=== PATIENT | male | born 1960 | race Two or more races ===

== ENCOUNTER 2020-09-15 15:06 | Outpatient (REF) | payer OTHER, SELFPAY | END 2020-09-15 15:07 | disposition home or self-care (01) | LOC: HO.LAB 15:06 | PROVIDERS: PCP Internal Medicine; Visit Provider Internal Medicine | DX: Z20.828 Contact with and (suspected) exposure to other viral communicable diseases (principal) | CPT/HCPCS: 87635 ==

== ENCOUNTER 2020-09-20 12:37 | Outpatient (REF) | payer OTHER, SELFPAY ==
--- NOTE | 2020-09-20 12:45 | MR_ITS ---
EXAMINATION: MR BRAIN WITHOUT CONTRAST CLINICAL INFORMATION: Skin paresthesias. COMPARISON: Head CT from 04/02/2017. TECHNIQUE: Multiplanar, multisequence imaging of the brain was performed without contrast. FINDINGS: No diffusion abnormalities are identified to suggest an acute or subacute infarct. The ventricles are normal in size. No mass effect or midline shift is seen. Mild chronic white matter microangiopathic changes present. There is a chronic lacunar infarct in the left lateral aspect of the dorsal christie. No extra-axial fluid collections are seen. The cerebellum is normal. The gradient refocused acquisition demonstrates no pathologic magnetic susceptibility artifact to indicate underlying acute or chronic blood products. The craniovertebral junction, marrow signal, and midline structures are normal. The major intracranial flow voids at the level of the wainwright of Mao are preserved. The dural venous sinus flow voids are maintained. The mastoid air cells are well aerated. There is severe mucosal thickening subtotally opacifying the left maxillary antrum. Mild to moderate anterior ethmoid sinus mucosal disease noted, more so on the left side. Aside from mild mucosal thickening along the floor of the right maxillary antrum, the remaining paranasal sinuses are fairly well aerated. MR/MR head/brain wo con IMPRESSION: Mild chronic white matter microangiopathic changes. Chronic lacunar infarct in the left dorsal aspect christie. Severe left maxillary sinus disease of indeterminate etiology. Recommend ENT follow-up evaluation.
== END 2020-09-20 12:38 | disposition home or self-care (01) ==
LOC: HO.MRI 12:37
PROVIDERS: PCP Internal Medicine; Visit Provider Internal Medicine
DX: R20.2 Paresthesia of skin (principal)
CPT/HCPCS: 70551

== ENCOUNTER → 2020-11-22 13:23 | Outpatient (BNVA) | payer OTHER, SELFPAY | PROVIDERS: PCP Internal Medicine; Referring Provider Internal Medicine; Visit Provider Nurse Practitioner | DX: Z13.89 Encounter for screening for other disorder (principal) | CPT/HCPCS: Q3014 ==

== ENCOUNTER 2021-01-18 11:02 | Emergency (ER) | payer OTHER, SELFPAY ==
[2021-01-18 12:30] VITALS: BP 104/77; PULSE 78; RESP 18; TEMP 36.4; O2SAT 98; BMI 43.0
== END 2021-01-18 13:22 | disposition left against medical advice (07) ==
PROVIDERS: Emergency Provider Emergency Medicine
DX: F32.9 Major depressive disorder, single episode, unspecified (principal); R45.851 Suicidal ideations; F41.9 Anxiety disorder, unspecified; F43.10 Post-traumatic stress disorder, unspecified; E11.9 Type 2 diabetes mellitus without complications; F17.210 Nicotine dependence, cigarettes, uncomplicated; F12.90 Cannabis use, unspecified, uncomplicated
CPT/HCPCS: 99281; 99282

== ENCOUNTER 2021-04-22 10:57 | Day surgery (SDC) | payer OTHER, SELFPAY ==
--- NOTE | 2021-04-20 13:47 | P.CONAN_ITS ---
Documented by User: Mellissa Rogers 04/20/21 13:48 HPI - Anesthesia Eval Consult details Narrative: 60yo M for Colonoscopy PMFSH Active Problems Active Problems: All Active Problems (Updated 01/24/21 @ 11:01 by Mellissa Rogers) GERD (gastroesophageal reflux disease) (Acute) Tubular adenoma of colon (Acute) NIDDY (non-insulin dependent diabetes mellitus in young) (Acute) Depression with anxiety (Acute) Glaucoma (Acute) Past Medical History Medical History (Updated 01/24/21 @ 11:01 by Mellissa Rogers) Anxiety Back pain Depression Diabetes GERD (gastroesophageal reflux disease) Gout Hyperhidrosis Neuropathy PTSD (post-traumatic stress disorder) Sarcoidosis Family History Family History (Updated 11/22/20 @ 13:26 by Didi Jerry Maris) Father Myocardial infarction Mother No problems noted. Surgical History Surgical History (Updated 01/19/21 @ 14:23 by Jeanne Novoa) History of bronchoscopy Hx of colonoscopy Social History Social History (Updated 01/19/21 @ 14:26 by Jeanne Novoa) Alcohol intake: current Alcohol intake frequency: does not drink Patient Tobacco Use Status: Current everyday Tobacco user Tobacco use type: Cigarette Cigarettes Per Day: 4 Years Smoked: 40 Second Hand Smoke Exposure: No Use of substances other than those prescribed or required for medical reasons: Yes Substance Use Type: Marijuana and Unknown Are you DNR?: No Advance Directives: No Advance Directives Information Provided: Yes Advance Directives on File: No Meds Allergies Allergy/AdvReac Type Severity Reaction Status Date / Time No Known Allergies Allergy Verified 01/19/21 14:34 Home Medications Medication Instructions Recorded Confirmed Last Taken Type clonazepam 1 tab PO TID PRN 01/19/21 01/19/21 Unknown History duloxetine [Cymbalta] 1 cap PO BID 01/19/21 01/19/21 Unknown History prazosin 3 cap PO BEDTIME 01/19/21 01/19/21 Unknown History Exam Exam Date and Time: April 20, 2021 7107 Assessment and Plan Assessment Anesthesia Assessment: Chart Reviewed Documented by User: Dafne Kannan 04/22/21 12:17 PMFSH Past Medical History Medical History (Updated 01/24/21 @ 11:01 by Mellissa Rogers) Anxiety Back pain Depression Diabetes GERD (gastroesophageal reflux disease) Gout Hyperhidrosis Neuropathy PTSD (post-traumatic stress disorder) Sarcoidosis Family History Family History (Updated 11/22/20 @ 13:26 by Didi Jerry [facility]) Father Myocardial infarction Mother No problems noted. Surgical History Surgical History (Updated 01/19/21 @ 14:23 by Jeanne Novoa) History of bronchoscopy Hx of colonoscopy Social History Social History (Updated 01/19/21 @ 14:26 by Jeanne Novoa) Alcohol intake: current Alcohol intake frequency: does not drink Patient Tobacco Use Status: Current everyday Tobacco user Tobacco use type: Cigarette Cigarettes Per Day: 4 Years Smoked: 40 Second Hand Smoke Exposure: No Use of substances other than those prescribed or required for medical reasons: Yes Substance Use Type: Marijuana and Unknown Are you DNR?: No Advance Directives: No Advance Directives Information Provided: Yes Advance Directives on File: No Meds Allergies Allergy/AdvReac Type Severity Reaction Status Date / Time No Known Allergies Allergy Verified 01/19/21 14:34 Home Medications Medication Instructions Recorded Confirmed Last Taken Type clonazepam 1 tab PO TID PRN 01/19/21 01/19/21 Unknown History duloxetine [Cymbalta] 1 cap PO BID 01/19/21 01/19/21 Unknown History prazosin 3 cap PO BEDTIME 01/19/21 01/19/21 Unknown History Exam Airway Mallampati Class: II TM Dist: >3cm Neck ROM: Full Heart: RRR Lungs: CTA Assessment and Plan Assessment Anesthesia Assessment: Anesthesia Plan Discussed and Chart Reviewed Final Anesthetic Review NPO: Yes ASA Class: II Final Preanesthetic Review: No Changes in Pt Med Stat and Consent Obtained/Reviewed Patient Risk: Intermediate Procedure Risk: Intermediate Anesthetic Plan Anesthetic Plan: MAC: Disposition: Standard PACU
[2021-04-22 12:03] VITALS: BP 140/78; PULSE 72; RESP 18; TEMP 36.7; O2SAT 98; BMI 28.5
[2021-04-22] MEDS: Lactated Ringers 1,000 ML 100 ML IVCONT (12:13)
[2021-04-22 12:15] LABS: Glucose, Whole Blood 143 mg/dL (60-115)
--- NOTE | 2021-04-22 12:31 | P.BOP_ITS ---
Brief Operative Note Date of Service: 04/22/21 Pre-op diagnosis: Colon cancer screening, history of colon polyps Post-op diagnosis: other (Colon polyps, diverticulosis, hemorrhoids) Procedure: COLONOSCOPY TILL CECUM WITH BIOPSIES AND SNARE POLYPECTOMY Consent: Indications for the procedure and potential complications of bleeding, perforation, reaction to medications and missed diagnosis were discussed with the patient and informed consent was obtained. Instrument: Olympus PCF H 190 L variable stiffness pediatric colonoscope Monitoring: Vital signs and clinical assessment, intermittent blood pressure monitoring, continuous EKG monitoring, Pulse oximetry and Carbon Dioxide monitoring were done throughout the procedure. Colon withdrawl time was 27 minutes. Procedure: The patient was placed in the left lateral decubitis position and pre-procedure medications were administered. After a digital rectal examination of the ano-rectum, the video colonoscope was inserted into the rectum and advanced through the colon to the cecum. The colonoscope was slowly withdrawn in a retrograde panoramic fashion and the colon mucosa was carefully examined including a retroflexed view of the rectum. Findings and interventions are described below. Procedure Difficulty: Without difficulty Findings: Terminal Ileum: Not evaluated Cecum: Normal Ascending Colon: Normal Transverse Colon: Normal Descending Colon: Moderate diverticulosis Sigmoid Colon: A 10 to 12 mm sessile polyp removed with a hot snare and moderate diverticulosis Rectum: A few 4-5 mm diminutive polyps in the rectum - 1 was removed with the cold biopsy Ano-rectum: Moderate internal hemorrhoids Colon preparation: Good of the some irrigation Impression and Post Procedure Diagnosis: Colonoscopy Findings: Two polyps removed Moderate diverticulosis seen in the left colon Moderate hemorrhoids on retroflexed exam. Plan: Await pathology results Patient has an appointment on []in the GI Clinic with [NOEL Solares] [Landy Espinoza NP] [Esperanza Abbott, AUTOMOTIVE [employer] ADVISOR-] [Suzy Burnham M.D.]. Repeat Colonoscopy interval based on path results - in 3-5 years if polyps are adenomatous and due to history of adenomatous colon polyps. Above findings were reviewed with the patient and colon polyps and diverticulosis handouts were given in the discharge area. Surgeon: Suzy Burnham MD Anesthesia: MAC (Dr Oliver) Was an Power Cleaner Operator used for this Procedure?: Yes Power Cleaner Operator: Darrel Jorge Estimated blood loss (mL): 0 Pathology: other (A- SIGMOID POLYP B- RECTAL POLYP) Condition: stable Disposition: PACU
--- NOTE | 2021-04-22 12:32 | MHC.SHP ---
Pre-Procedural Eval Section A The patient is an INPATIENT: No The History & Physical has been completed within 30 days and I have reviewed it.: No Section B Chief Complaint: reflux disease Details of Present Illness: Colon cancer screening, history of colon polyps Relevant Family History (Specify if Yes): No Relevant Social History: Tobacco Use Present Medications: see Short Stay Collaborative assessment Medical History: Significant History (GERD, type 2 diabetes mellitus, anxiety and depression, glaucoma) History of Previous Operations: Relevant previous surgery/procedure and date(s) (hx of bronchoscopy, history of colonoscopy) Allergies: Allergies Allergy/AdvReac Type Severity Reaction Status Date / Time No Known Allergies Allergy Verified 01/19/21 14:34 Review of Systems Sugical H&P ROS: Negative: Constitution, Cardiovascular, Respiratory and Gastrointestinal Exam Surgical H&P Exam: Normal: Heart, Normal: Lungs, Normal: Extremities and Normal: Abdomen Plan Diagnosis/Plan: Unchanged I have reviewed the history and physical and performed a pertinent physical examination on my patient. No changes have occurred unless specified.
[2021-04-22 14:18] VITALS: BP 113/59; PULSE 65; RESP 16; TEMP 36.8; O2SAT 100
[2021-04-22 14:33] VITALS: BP 129/75; PULSE 66; RESP 17; TEMP 36.8; O2SAT 100
== END 2021-04-22 14:55 | disposition home or self-care (01) ==
PROVIDERS: Visit Provider Internal Medicine Gastroenterology
PROC: 0DJD8ZZ Inspection of Lower Intestinal Tract, Via Natural or Artificial Opening Endoscopic (ICD-10-PCS; CPT 45378; principal; 2021-04-22 12:50)
DX: Z12.11 Encounter for screening for malignant neoplasm of colon (principal); Z86.010 Personal history of colon polyps; D12.5 Benign neoplasm of sigmoid colon; K62.1 Rectal polyp; K57.30 Diverticulosis of large intestine without perforation or abscess without bleeding; K64.8 Other hemorrhoids; K21.9 Gastro-esophageal reflux disease without esophagitis; D86.9 Sarcoidosis, unspecified; R61 Generalized hyperhidrosis; F17.210 Nicotine dependence, cigarettes, uncomplicated; F12.90 Cannabis use, unspecified, uncomplicated; Z79.899 Other long term (current) drug therapy; E11.9 Type 2 diabetes mellitus without complications; G62.9 Polyneuropathy, unspecified
CPT/HCPCS: 45385; 45380; 82947; 88305

== ENCOUNTER 2021-05-24 14:39 | Emergency (ER) | payer OTHER, SELFPAY ==
--- NOTE | ~2021-05-24 | XR_ITS ---
EXAMINATION: XR CHEST CLINICAL INFORMATION: Asthma COMPARISON: None TECHNIQUE: 2 views of the chest were obtained. FINDINGS: The lungs are well-expanded and clear. The heart size and pulmonary vascularity is normal. No gross bony abnormality seen. XR/XR chest 2V IMPRESSION: Unremarkable chest exam.
--- NOTE | ~2021-05-24 | CT_ITS ---
EXAMINATION: CT CHEST WITHOUT CONTRAST CLINICAL INFORMATION: Shortness of breath. COMPARISON: Multiple priors, most recent chest radiograph dated 05/24/2021 and CTA chest dated 04/26/2015. TECHNIQUE: Multidetector volumetric CT imaging of the chest was done. Axial MIP volume rendering provided. Sagittal and coronal reformatted images were obtained. This CT examination was performed using dose optimization techniques as appropriate, variously including the following: *Automated exposure control. *Adjustment of mA and/or kV according to patient size (this includes techniques or standardized protocols for targeted exams where dose is matched to indication/reason for exam; i.e. extremities or head). *Use of iterative reconstruction technique. 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 LUNGS: Focal ground-glass opacities anteriorly within the right upper lobe. Linear scarring versus atelectasis within the lingula. No large, confluent airspace consolidation. No significant pulmonary nodule or mass. Previously seen scattered nodular densities from the prior CT have resolved. The central airways are patent. MEDIASTINUM: No cardiomegaly. No pericardial effusion. No thoracic aortic dilatation. No significant superior mediastinal or hilar lymphadenopathy. Hypodense left thyroid nodule measuring 1.4 cm. Given the patient's age and the size of the nodule, this is likely not clinically significant and no follow up imaging is recommended. PLEURA: There is no pleural effusion. No pleural mass or thickening. AXILLA: No lymphadenopathy. UPPER ABDOMEN: Unremarkable. OSSEOUS STRUCTURES: Unremarkable. CT/CT chest wo con IMPRESSION: 1. Scattered ground-glass airspace opacities within the right upper lobe which are new when compared to the prior examination and may represent an early infectious or inflammatory process. Previously seen nodular densities have resolved. 2. No lymphadenopathy.
[2021-05-24 15:22] VITALS: BP 134/77; PULSE 86; RESP 18; TEMP 36.9; O2SAT 96; BMI 28.0
[2021-05-24 18:00] VITALS: BP 136/85; PULSE 65; RESP 16; TEMP 36.9; O2SAT 99
--- NOTE | 2021-05-24 18:28 | ECG_ITS ---
Test Reason : DYSPNEA Blood Pressure : / mmHG Vent. Rate : 065 BPM Atrial Rate : 065 BPM P-R Int : 170 ms QRS Dur : 094 ms QT Int : 424 ms P-R-T Axes : 033 017 013 degrees QTc Int : 440 ms Normal sinus rhythm Normal ECG When compared with ECG of 10-JUL-2017 05:57, No significant change was found Referred By: Destinee Gonzalez Electronically Signed By:HYUN MALONEY MD
[2021-05-24] MEDS: Albuterol Sulfate (0.083%) 2.5 MG/3 ML VIAL.NEB 7.5 MG INHALE (18:33)
[2021-05-24 18:35] VITALS: PULSE 65; O2SAT 96
[2021-05-24] MEDS: methylPREDNISolone Sod Succ 125 MG/2 ML VIAL IVPUSH (18:38)
[2021-05-24 18:43] LABS: MANUAL DIFF FLAG NO
[2021-05-24 18:46] LABS: Basophils Percent Auto 0.5 % (0-2); Eosinophils Absolute Auto 0.2 X10*3/uL (0.0-0.4); Eosinophils Percent Auto 2.7 % (0-4); Hematocrit 43.2 % (42-52); Hemoglobin 15.1 g/dl (14.0-18.0); Imm Gran Abs Auto 0.03 X10*3/uL (0.00-0.03); Imm Gran Pct Auto 0.5 % (0.0-0.4); Lymphocytes Absolute Auto 2.3 X10*3/uL (1.2-4.9); Mean Corpuscular Volume 88.7 fL (80-98); Monocytes Absolute Auto 0.3 X10*3/uL (0.1-1.2); Monocytes Percent Auto 5.9 % (2-11); Neutrophils Absolute Auto 2.8 X10*3/uL (2.0-8.3); Neutrophils Percent Auto 49.4 % (45-73); Platelet Count 181 X10*3/uL (160-400); Red Blood Count 4.87 X10*6/uL (4.60-5.80); Red Cell Distribution Width 13.2 % (11.0-16.0); White Blood Count 5.6 X10*3/uL (4.8-10.8)
[2021-05-24 19:04] LABS: Anion Gap 14 (12-20); Blood Urea Nitrogen 13 mg/dL (9-16); Calcium 9.3 mg/dL (8.4-10.2); Carbon Dioxide 25 mmol/L (22-29); Chloride 105 mmol/L (96-108); Creatinine Clr Calc Pharmacy 119.7; Estimated Glomerular Filt Rate > 60; Glucose Random 116 mg/dL (60-115); Potassium 4.2 mmol/L (3.3-5.1); Sodium 140 mmol/L (135-145)
[2021-05-24 19:05] LABS: Magnesium 2.2 mg/dL (1.6-2.6)
[2021-05-24 19:11] LABS: Troponin-I High Sensitivity < 3.5 ng/L (<3.5-35.0)
--- NOTE | 2021-05-24 19:23 | ED_ITS ---
HPI - Asthma General Chief Complaint: Asthma Stated Complaint: Asthma Time Seen by Provider: 05/24/21 18:27 Source: patient Mode of arrival: ambulatory Limitations: no limitations History of Present Illness HPI Narrative: 60-year-old male with past medical history of tubular adenoma, GERD, [id number] diabetes, depression and glaucoma presents with 2 day history of shortness of breath that is unrelieved [id number] medications, chest pain when coughing, fatigue and poor p.o. intake. He does not report any palpitations, abdominal pain, abdominal distention, dysuria, hematuria, measured fevers, weakness, changes in vision, nausea, vomiting, diarrhea, constipation, or edema. MD complaint: asthma attack Onset (ago): day(s) ( To) Severity: moderate Associated symptoms: dry cough and chest pain Related Data Current Asthma Therapy: none Home Medications Medication Instructions Recorded Confirmed clonazepam 1 tab PO TID PRN 01/19/21 01/19/21 duloxetine [Cymbalta] 1 cap PO BID 01/19/21 01/19/21 prazosin 3 cap PO BEDTIME 01/19/21 01/19/21 Previous Rx's Medication Instructions Recorded azithromycin 250 mg PO DAILY 4 Days #4 tab 05/24/21 cefuroxime axetil 500 mg PO Q12H 10 Days #20 tab 05/24/21 Allergies Allergy/AdvReac Type Severity Reaction Status Date / Time No Known Allergies Allergy Verified 04/22/21 12:38 Review of Systems Review of Systems: Constitutional: No Fever, No Chills ENT/Mouth: No Hoarseness, No sore throat, No Rhinorrhea Eyes: No Redness, No Discharge, No Vision Changes Cardiovascular: positive Chest Pain, positive SOB, positive Dyspnea on Exertion, No Edema Respiratory: positive Cough, No Sputum, positive Wheezing, Gastrointestinal: No Nausea, No Vomiting, No Diarrhea, No abdominal Pain Genitourinary: No Dysuria, No Hematuria Musculoskeletal: No joint pain, No Myalgias Skin: No rash Neuro: No Weakness, No Numbness, No Headache Psych: No anxiety, depression Heme/Lymph: No Bruising, No Bleeding Endocrine: No Polyuria, No Polydipsia Yes all other systems are reviewed and are negative PMFSH Past Medical History Attestation statement: The following information was validated with the patient. Source: old records reviewed Medical History Anxiety Back pain Depression Diabetes GERD (gastroesophageal reflux disease) Gout Hyperhidrosis Neuropathy PTSD (post-traumatic stress disorder) Sarcoidosis Surgical History History of bronchoscopy Hx of colonoscopy Family History Family History Father Myocardial infarction Mother No problems noted. Social History Social History Alcohol intake: current Alcohol intake frequency: does not drink Patient Tobacco Use Status: Current everyday Tobacco user Tobacco use type: Cigarette Cigarettes Per Day: 4 Years Smoked: 40 Second Hand Smoke Exposure: No Substance Use Type: Marijuana and Unknown Advance Directives: No Advance Directives Information Provided: No Physical Exam Vital Signs: Vital Signs: Last Vital Signs Temp 97.7 F 05/24/21 20:00 Pulse 71 05/24/21 20:00 Resp 18 05/24/21 20:00 BP 131/62 05/24/21 20:00 Pulse Ox 98 05/24/21 20:00 Body Mass Index 28.0 Appearance: Alert. Oriented X3. No acute distress. Eyes: Pupils equal, round and reactive to light. ENT: Pharynx normal. Neck: Normal inspection. Neck supple. CVS: Normal heart rate and rhythm. Pulses normal. Respiratory: No respiratory distress. wheezing on expiration. Abdomen: Soft and nontender. Skin: Skin warm and dry. Normal skin color. Normal skin turgor. Extremities: No lower extremity edema. Neuro: No motor deficit. No sensory deficit. Course Course Course Narrative: 60-year-old male presents with 2 days of shortness of breath, chest pain when coughing, poor p.o. intake. Plan of care is sore CT scan of chest as chest x-ray is negative however patient does have some adventitious lung sounds. Will rule out ACS. CT scan of chest indicates infiltrates consistent with right-sided pneumonia. Will treat with azithromycin, ceftriaxone while here. Will discharge with 250 of azithromycin for for next 4 days and cefuroxime for the next 10. patient verbalized understanding of and agrees plan of care discharge home. MDM - Asthma MDM Narrative Medical decision making narrative: ACS Differential Diagnosis Differential diagnosis: Likely Acute exacerbation and Pneumonia Medical Records Attestation: I reviewed the patient's medical records. Lab Data Attestation: I reviewed the patient's lab results. Result diagrams: 05/24/21 18:37 05/24/21 18:37 Labs: Lab Results 05/24/21 05/24/21 05/24/21 Range/Units 18:37 18:37 18:37 WBC 5.6 (4.8-10.8) X10*3/uL RBC 4.87 (4.60-5.80) X10*6/uL Hgb 15.1 (14.0-18.0) g/dl Hct 43.2 (42-52) % MCV 88.7 (80-98) fL MCH 31.0 (27.0-33.0) pg MCHC 35.0 (31.0-36.0) g/dl RDW 13.2 (11.0-16.0) % Plt Count 181 (160-400) X10*3/uL MPV 11.0 (9.4-12.4) fL Immature Gran % (Auto) 0.5 H (0.0-0.4) % Neut % (Auto) 49.4 (45-73) % Lymph % (Auto) 41.0 H (20-40) % [place] % (Auto) 5.9 (2-11) % Eos % (Auto) 2.7 (0-4) % Baso % (Auto) 0.5 (0-2) % Lymph # (Auto) 2.3 (1.2-4.9) X10*3/uL [place] # (Auto) 0.3 (0.1-1.2) X10*3/uL Eos # (Auto) 0.2 (0.0-0.4) X10*3/uL Baso # (Auto) 0.0 (0.0-0.2) X10*3/uL Abs Immat Gran (auto) 0.03 (0.00-0.03) X10*3/uL Absolute Neuts (auto) 2.8 (2.0-8.3) X10*3/uL Absolute Nucleated RBC 0.000 (0.0-0.012) X10*3/uL Nucleated RBC % (auto) 0.0 (0.0-0.2) /100WBC Sodium 140 (135-145) mmol/L Potassium 4.2 (3.3-5.1) mmol/L Chloride 105 (96-108) mmol/L Carbon Dioxide 25 (22-29) mmol/L Anion Gap 14 (12-20) BUN 13 (9-16) mg/dL Creatinine 0.79 (0.5-1.4) mg/dL Estim Creat Clear Calc 119.7 Estimated GFR > 60 POC Glucose (60-115) mg/dL Random Glucose 116 H (60-115) mg/dL Calcium 9.3 (8.4-10.2) mg/dL Magnesium (1.6-2.6) mg/dL Troponin I High Sens < 3.5 (<3.5-35.0) ng/L Coronavirus (PCR) (Negative) Influenza Type A (PCR) (Negative) Influenza Type B (PCR) (Negative) RSV RNA Qual (PCR) (Negative) 05/24/21 05/24/21 05/24/21 Range/Units 18:37 18:37 20:20 WBC (4.8-10.8) X10*3/uL RBC (4.60-5.80) X10*6/uL Hgb (14.0-18.0) g/dl Hct (42-52) % MCV (80-98) fL MCH (27.0-33.0) pg MCHC (31.0-36.0) g/dl RDW (11.0-16.0) % Plt Count (160-400) X10*3/uL MPV (9.4-12.4) fL Immature Gran % (Auto) (0.0-0.4) % Neut % (Auto) (45-73) % Lymph % (Auto) (20-40) % [place] % (Auto) (2-11) % Eos % (Auto) (0-4) % Baso % (Auto) (0-2) % Lymph # (Auto) (1.2-4.9) X10*3/uL [place] # (Auto) (0.1-1.2) X10*3/uL Eos # (Auto) (0.0-0.4) X10*3/uL Baso # (Auto) (0.0-0.2) X10*3/uL Abs Immat Gran (auto) (0.00-0.03) X10*3/uL Absolute Neuts (auto) (2.0-8.3) X10*3/uL Absolute Nucleated RBC (0.0-0.012) X10*3/uL Nucleated RBC % (auto) (0.0-0.2) /100WBC Sodium (135-145) mmol/L Potassium (3.3-5.1) mmol/L Chloride (96-108) mmol/L Carbon Dioxide (22-29) mmol/L Anion Gap (12-20) BUN (9-16) mg/dL Creatinine (0.5-1.4) mg/dL Estim Creat Clear Calc Estimated GFR POC Glucose 185 H (60-115) mg/dL Random Glucose (60-115) mg/dL Calcium (8.4-10.2) mg/dL Magnesium 2.2 (1.6-2.6) mg/dL Troponin I High Sens (<3.5-35.0) ng/L Coronavirus (PCR) NEGATIVE (Negative) Influenza Type A (PCR) NEGATIVE (Negative) Influenza Type B (PCR) NEGATIVE (Negative) RSV RNA Qual (PCR) NEGATIVE (Negative) Imaging Data Chest x-ray: Attestation: I personally reviewed and interpreted this imaging study as follows: Radiologist's impression: EXAMINATION: XR CHEST CLINICAL INFORMATION: Asthma COMPARISON: None TECHNIQUE: 2 views of the chest were obtained. FINDINGS: The lungs are well-expanded and clear. The heart size and pulmonary vascularity is normal. No gross bony abnormality seen. XR/XR chest 2V IMPRESSION: Unremarkable chest exam. CT scan - chest: Attestation: I personally reviewed and interpreted this imaging study as follows: Radiologist's impression: EXAMINATION: CT CHEST WITHOUT CONTRAST CLINICAL INFORMATION: Shortness of breath. COMPARISON: Multiple priors, most recent chest radiograph dated 05/24/2021 and CTA chest dated 04/26/2015. TECHNIQUE: Multidetector volumetric CT imaging of the chest was done. Axial MIP volume rendering provided. Sagittal and coronal reformatted images were obtained. This CT examination was performed using dose optimization techniques as appropriate, variously including the following: *Automated exposure control. *Adjustment of mA and/or kV according to patient size (this includes techniques or standardized protocols for targeted exams where dose is matched to indication/reason for exam; i.e. extremities or head). *Use of iterative reconstruction technique. 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 LUNGS: Focal ground-glass opacities anteriorly within the right upper lobe. Linear scarring versus atelectasis within the lingula. No large, confluent airspace consolidation. No significant pulmonary nodule or mass. Previously seen scattered nodular densities from the prior CT have resolved. The central airways are patent. MEDIASTINUM: No cardiomegaly. No pericardial effusion. No thoracic aortic dilatation. No significant superior mediastinal or hilar lymphadenopathy. Hypodense left thyroid nodule measuring 1.4 cm. Given the patient's age and the size of the nodule, this is likely not clinically significant and no follow up imaging is recommended. PLEURA: There is no pleural effusion. No pleural mass or thickening. AXILLA: No lymphadenopathy. UPPER ABDOMEN: Unremarkable. OSSEOUS STRUCTURES: Unremarkable. CT/CT chest wo con IMPRESSION: 1. Scattered ground-glass airspace opacities within the right upper lobe which are new when compared to the prior examination and may represent an early infectious or inflammatory process. Previously seen nodular densities have resolved. 2. No lymphadenopathy. ECG Data Attestation: I personally reviewed and interpreted this ECG as follows: ECG interpretation date: 05/24/21 ECG interpretation time: 19:08 Prior ECG tracings: available for review Interpretation: Vent. rate 65 BPM IL interval 170 ms QRS duration 94 ms QT/QTc 424/440 ms P-R-T axes 33 17 13 Normal sinus rhythm Normal ECG When compared with ECG of 10-JUL-2017 05:57, No significant change was found Discharge Plan Discharge Clinical Impression: Pneumonia Qualifiers: Pneumonia type: due to unspecified organism Laterality: right Lung location: unspecified part of lung Qualified Code(s): J18.9 - Pneumonia, unspecified organism Patient Disposition: Home, Self-Care Instructions: Pneumonia (ED) Additional Instructions: you were evaluated for shortness of breath, cough, and chest pain. CT scan of the chest indicates pneumonia. Please take azithromycin 250 mg for the next 4 days. Please take cefuroxime 500 mg twice a day for the next 10 days. Please start these medications tomorrow. You received Your 1st doses of medication in the emergency department. please follow-up with primary care physician. If symptoms get worse please return to the emergency department immediately. Thank you for choosing this emergency department for evaluation. Please follow-up with primary care physician as needed. Return to the emergency department for any new, concerning, or worsening symptoms. Prescriptions: New azithromycin 250 mg tablet 250 mg PO DAILY 4 Days Qty: 4 RF: 0 cefuroxime axetil 500 mg tablet 500 mg PO Q12H 10 Days Qty: 20 RF: 0 No Action clonazepam 0.5 mg tablet 1 tab PO TID PRN (Reason: anxiety) RF: 0 prazosin 5 mg capsule 3 cap PO BEDTIME RF: 0 duloxetine [Cymbalta] 30 mg capsule,delayed release(DR/EC) 1 cap PO BID RF: 0 Interventions: ED Discharge Assessment Last Done: 05/24/21 22:06 Discharge Date/Time: 05/24/21 22:07
[2021-05-24 19:45] LABS: Influenza A PCR NEGATIVE (Negative); Influenza B PCR NEGATIVE (Negative); Resp Syncy Virus RNA Qual PCR NEGATIVE (Negative); SARS COV2 PCR INHOUSE NEGATIVE (Negative)
[2021-05-24 20:00] VITALS: BP 131/62; PULSE 71; RESP 18; TEMP 36.5; O2SAT 98
[2021-05-24 20:24] LABS: Glucose, Whole Blood 185 mg/dL (60-115)
[2021-05-24] MEDS: cefTRIAXone sodium 1 GM in 0.9 % Sodium Chloride 50 ML IV (21:34)
[2021-05-24] MEDS: Azithromycin 500 MG TABLET PO (21:35)
== END 2021-05-24 22:07 | disposition home or self-care (01) ==
PROVIDERS: Nurse Practitioner Family; Emergency Provider Internal Medicine; PCP Internal Medicine
DX: J18.9 Pneumonia, unspecified organism (principal); E11.9 Type 2 diabetes mellitus without complications; Z20.822 Contact with and (suspected) exposure to COVID-19
CPT/HCPCS: 0241U; 36415; 71046; 71250; 80048; 82947; 83735; 84484; 85025; 93005; 94640; 94644; 96365; 96375; 99284; J0696; J2930

== ENCOUNTER → 2021-05-26 12:58 | Outpatient (BNVA) | payer OTHER, SELFPAY | PROVIDERS: PCP Internal Medicine; Referring Provider Internal Medicine; Visit Provider Nurse Practitioner | DX: D12.6 Benign neoplasm of colon, unspecified (principal) | CPT/HCPCS: 99212 ==

== ENCOUNTER → 2021-06-21 14:31 | Outpatient (BNVA) | payer OTHER, SELFPAY | PROVIDERS: PCP Internal Medicine; Visit Provider Hospitalist | DX: D86.9 Sarcoidosis, unspecified (principal); J18.9 Pneumonia, unspecified organism; J44.9 Chronic obstructive pulmonary disease, unspecified; E11.40 Type 2 diabetes mellitus with diabetic neuropathy, unspecified; E11.65 Type 2 diabetes mellitus with hyperglycemia; F17.210 Nicotine dependence, cigarettes, uncomplicated; Z79.899 Other long term (current) drug therapy | CPT/HCPCS: 99202 ==

== ENCOUNTER 2021-07-08 10:42 | Outpatient (REF) | payer OTHER, SELFPAY ==
--- NOTE | 2021-07-08 16:49 | PFT_ITS ---
Forced vital capacity is normal. FEV1 slightly decreased. [id number] also slightly decreased. MVV normal. Post bronchodilator therapy, there is no significant change. Total lung capacity and residual volume are normal. Diffusion capacity slightly decreased. CONCLUSION: There is a possibility of very mild degree of obstructive airway disorder. No response to bronchodilator therapy. No significant restrictive disorder noted. Clinical correlation is recommended. Black Booth MD MSB/MODL / [id number]
== END 2021-07-08 10:43 | disposition home or self-care (01) ==
LOC: HO.RESP 10:42
PROVIDERS: PCP Internal Medicine; Visit Provider Hospitalist
DX: J44.9 Chronic obstructive pulmonary disease, unspecified (principal); D86.9 Sarcoidosis, unspecified
CPT/HCPCS: 94060; 94727; 94729

== ENCOUNTER 2021-08-19 13:56 | Outpatient (REF) | payer OTHER, SELFPAY ==
[2021-08-19 15:17] LABS: MANUAL DIFF FLAG NO
[2021-08-19 15:21] LABS: Basophils Percent Auto 0.7 % (0-2); Eosinophils Absolute Auto 0.1 X10*3/uL (0.0-0.4); Eosinophils Percent Auto 1.5 % (0-4); Hematocrit 41.8 % (42-52); Hemoglobin 14.7 g/dl (14.0-18.0); Imm Gran Abs Auto 0.02 X10*3/uL (0.00-0.03); Imm Gran Pct Auto 0.4 % (0.0-0.4); Lymphocytes Absolute Auto 1.6 X10*3/uL (1.2-4.9); Lymphocytes Percent Auto 30.5 % (20-40); Mean Corpuscular HGB Conc 35.2 g/dl (31.0-36.0); Mean Corpuscular Hemoglobin 31.3 pg (27.0-33.0); Mean Corpuscular Volume 89.1 fL (80-98); Mean Platelet Volume 11.4 fL (9.4-12.4); Monocytes Absolute Auto 0.3 X10*3/uL (0.1-1.2); Monocytes Percent Auto 5.4 % (2-11); Neutrophils Absolute Auto 3.3 X10*3/uL (2.0-8.3); Neutrophils Percent Auto 61.5 % (45-73); Platelet Count 198 X10*3/uL (160-400); Red Blood Count 4.69 X10*6/uL (4.60-5.80); Red Cell Distribution Width 12.9 % (11.0-16.0); White Blood Count 5.4 X10*3/uL (4.8-10.8)
[2021-08-19 17:32] LABS: Erythrocyte Sedimentation Rate 12 MM/HR (0-15)
[2021-08-22 13:41] LABS: TS Negative Control Passed; TS Panel A 1; TS Panel B 0; TS Positive Control Passed; TSpotTB Negative (Negative)
[2021-08-22 16:12] LABS: Anti Nuclear Antibody Screen NEGATIVE (NEGATIVE)
[2021-08-24 23:16] LABS: Angiotensin Converting Enzyme 27 U/L (9-67)
[2021-08-26 13:55] LABS: Asperg fumigatus Precip Abs NEGATIVE (NEGATIVE); Micropoly faeni Abs NEGATIVE (NEGATIVE); Pigeon serum Abs NEGATIVE (NEGATIVE); Saccharo pora viridis Abs NEGATIVE (NEGATIVE); Thermo candidus Abs NEGATIVE (NEGATIVE); Thermoa vulgaris #1 NEGATIVE (NEGATIVE)
== END 2021-08-19 13:57 | disposition home or self-care (01) ==
LOC: HO.LAB 13:56
PROVIDERS: PCP Internal Medicine; Visit Provider Hospitalist
DX: D86.9 Sarcoidosis, unspecified (principal); J18.9 Pneumonia, unspecified organism; J44.9 Chronic obstructive pulmonary disease, unspecified; R91.8 Other nonspecific abnormal finding of lung field
CPT/HCPCS: 36415; 82164; 82785; 85025; 85652; 86003; 86038; 86039; 86331; 86481; 86606; 86609; 99212

== ENCOUNTER 2021-09-10 10:13 | Emergency (ER) | payer OTHER, SELFPAY ==
--- NOTE | ~2021-09-10 | XR_ITS ---
EXAMINATION: XR CHEST CLINICAL INFORMATION: Pain, fall COMPARISON: Chest CT on 05/24/2021 TECHNIQUE: Frontal view of the chest was obtained. FINDINGS: The cardiac silhouette is normal. There is mild diffuse bronchial wall thickening. There are no areas of consolidation. There are no pleural effusions or pneumothoraces. The bones and soft tissues are unremarkable for the patient's age. XR/XR chest 1V IMPRESSION: Bronchial wall thickening may be infectious and/or inflammatory in etiology.
[2021-09-10 11:18] VITALS: BP 142/78; PULSE 80; RESP 16; TEMP 36.5; O2SAT 98; BMI 29.8
--- NOTE | 2021-09-10 11:51 | ECG_ITS ---
Test Reason : Fall Blood Pressure : / mmHG Vent. Rate : 071 BPM Atrial Rate : 071 BPM P-R Int : 192 ms QRS Dur : 094 ms QT Int : 382 ms P-R-T Axes : 051 015 018 degrees QTc Int : 415 ms Normal sinus rhythm Early repolarization Normal ECG No previous ECGs available Referred By: Linda Dahl Electronically Signed By:SURYA TRIVEDI MD
[2021-09-10 12:02] LABS: Appearance Urine CLEAR; Color Urine YELLOW; Glucose Urine UA >=1000 MG/DL (NEG); Leukocyte Esterase Urine NEG (NEG); Nitrite Urine NEG (NEG); Urine Blood NEG (NEG); Urine Ketones NEG (NEG); Urine Protein NEG (NEG-TRACE)
[2021-09-10 12:15] LABS: COVID-19 Test Negative (Negative); IDNOW Serial# 08D9AD1C
[2021-09-10 12:24] LABS: RBC Urine 0 /HPF (0); WBC Urine 0 /HPF (0-4)
[2021-09-10 12:31] VITALS: BP 136/85; BP 138/85; PULSE 71; PULSE 76
[2021-09-10 12:31] LABS: Eosinophils Absolute Auto 0.2 X10*3/uL (0.0-0.4); Monocytes Absolute Auto 0.4 X10*3/uL (0.1-1.2); Neutrophils Percent Auto 52.7 % (45-73)
[2021-09-10 12:33] LABS: Basophils Percent Auto 0.5 % (0-2); Eosinophils Percent Auto 2.7 % (0-4); Hematocrit 39.6 % (42-52); Hemoglobin 13.8 g/dl (14.0-18.0); Imm Gran Abs Auto 0.02 X10*3/uL (0.00-0.03); Imm Gran Pct Auto 0.3 % (0.0-0.4); Lymphocytes Absolute Auto 2.2 X10*3/uL (1.2-4.9); Lymphocytes Percent Auto 37.5 % (20-40); Mean Corpuscular HGB Conc 34.8 g/dl (31.0-36.0); Mean Corpuscular Hemoglobin 31.2 pg (27.0-33.0); Mean Corpuscular Volume 89.4 fL (80-98); Monocytes Percent Auto 6.3 % (2-11); Neutrophils Absolute Auto 3.1 X10*3/uL (2.0-8.3); Red Blood Count 4.43 X10*6/uL (4.60-5.80); Red Cell Distribution Width 12.4 % (11.0-16.0); White Blood Count 5.9 X10*3/uL (4.8-10.8)
[2021-09-10 12:34] VITALS: BP 147/81; PULSE 81
[2021-09-10 12:34] LABS: MANUAL DIFF FLAG NO
[2021-09-10 12:50] LABS: Mean Platelet Volume 11.9 fL (9.4-12.4)
[2021-09-10 12:51] LABS: Platelet Count 113 X10*3/uL (160-400)
[2021-09-10 12:53] LABS: Alanine Aminotransferase 47 U/L (0-40); Albumin Level 4.1 g/dL (3.5-5.0); Alkaline Phosphatase 120 U/L (39-117); Anion Gap 12 (12-20); Aspartate Amino Transferase 35 U/L (5-37); Bilirubin Direct 0.2 mg/dL (0.0-0.5); Bilirubin Total 0.5 mg/dL (0.0-1.0); Blood Urea Nitrogen 13 mg/dL (9-16); Calcium 9.4 mg/dL (8.4-10.2); Carbon Dioxide 28 mmol/L (22-29); Chloride 104 mmol/L (96-108); Creatinine Clr Calc Pharmacy 94.4; Estimated Glomerular Filt Rate > 60; Glucose Random 233 mg/dL (60-115); Magnesium 1.9 mg/dL (1.6-2.6); Potassium 4.4 mmol/L (3.3-5.1); Sodium 140 mmol/L (135-145); Total Protein 6.7 g/dL (6.5-8.0)
--- NOTE | 2021-09-10 13:34 | ED_ITS ---
HPI - General Adult General Chief complaint: General Medical Stated complaint: BODY PAIN Time Seen by Provider: 09/10/21 11:39 Source: patient Mode of arrival: ambulatory History of Present Illness HPI narrative: 60-year-old male past medical history of asthma/COPD overlap, back pain, depression, diabetes, GERD, gout, neuropathy, PTSD, sarcoidosis, presenting to the ED complaining of diffuse body myalgias/body pain x1 month. Reports pain has caused him to have 3 falls over the past month, denies head trauma or LOC. denies weakness, numbness, tingling, headache, lightheadedness/dizziness, CP/SOB, dysuria/hematuria, decreased p.o. intake. Onset (ago): month(s) Related Data Home Medications Medication Instructions Recorded Confirmed clonazepam 0.5 mg tablet 1 tab PO TID PRN 01/19/21 06/21/21 duloxetine 30 mg capsule,delayed 1 cap PO BID 01/19/21 06/21/21 release (Cymbalta) prazosin 5 mg capsule 3 cap PO BEDTIME 01/19/21 06/21/21 acetaminophen 500 mg tablet 500 mg PO Q6-8H PRN 05/26/21 06/21/21 albuterol sulfate 90 mcg/actuation 2 puff INHALATION Q4-6H PRN 05/26/21 06/21/21 aerosol inhaler fluticasone propionate 50 2 spray INTRANASAL DAILY PRN 05/26/21 06/21/21 mcg/actuation nasal spray,suspension Previous Rx's Medication Instructions Recorded azithromycin 250 mg tablet 250 mg PO DAILY 4 Days #4 tab 05/24/21 cefuroxime axetil 500 mg tablet 500 mg PO Q12H 10 Days #20 tab 05/24/21 albuterol sulfate 2.5 mg INHALATION Q4H PRN 30 Days 06/21/21 #180 ml fluticasone fur. 200 mcg-umeclid 1 inh INHALATION DAILY 30 Days #60 06/21/21 62.5 mcg-vilant 25 mcg ea inhalat.powder (Trelegy Ellipta) nicotine 14 mg/24 hr daily 1 patch TRANSDERMAL DAILY 28 Days 06/21/21 transdermal patch (Nicoderm CQ) #28 ea azithromycin 250 mg tablet 250 mg PO 3XW 28 Days #12 tab 08/19/21 Allergies Allergy/AdvReac Type Severity Reaction Status Date / Time No Known Allergies Allergy Verified 06/21/21 15:15 Review of Systems Review of Systems: Constitutional: No Fever, No Fatigue, No Malaise ENT/Mouth: No Ear Pain, No Nasal Congestion, No Hoarseness, No sore throat, No Swallowing Difficulty Eyes: No Eye Pain, No Swelling, No Redness, No Foreign Body, No Discharge Cardiovascular: No Chest Pain, No SOB, No Dyspnea on Exertion, No Edema, No Palpitations Respiratory: No Cough, No Sputum, No Wheezing, No Dyspnea Gastrointestinal: No Nausea, No Vomiting, No Diarrhea, No Constipation, No Abdominal pain Genitourinary:No Dysuria, No Urinary Frequency, No Hematuria, No Urinary Incontinence, No Urgency, No Flank Pain Musculoskeletal: No joint pain, + Myalgias, No Joint Swelling Skin: No Skin Lesions, No rash Neuro: No Weakness, No Numbness, No Paresthesias, No Loss of Consciousness, No Dizziness, No Headache Yes all other systems are reviewed and are negative [facility] Past Medical History Attestation statement: The following information was validated with the patient. Medical History (Updated 09/10/21 @ 14:20 by NOEL Camejo) Anxiety Asthma-COPD overlap syndrome Back pain Depression Diabetes GERD (gastroesophageal reflux disease) Gout Hyperhidrosis Neuropathy Pneumonitis PTSD (post-traumatic stress disorder) Sarcoidosis Surgical History History of bronchoscopy Hx of colonoscopy Family History Family History Father Myocardial infarction Mother No problems noted. Social History Social History Alcohol intake: current Alcohol intake frequency: does not drink Patient Tobacco Use Status: Current everyday Tobacco user Tobacco use type: Cigarette Cigarettes Per Day: 4 Years Smoked: 40 Second Hand Smoke Exposure: No Substance Use Type: Marijuana and Unknown Advance Directives: No Advance Directives Information Provided: No Physical Exam Vital Signs: Vital Signs: Last Vital Signs Temp 97.7 F 09/10/21 11:18 Pulse 81 09/10/21 12:34 Resp 16 09/10/21 11:18 BP 147/81 H 09/10/21 12:34 Pulse Ox 98 09/10/21 11:18 Body Mass Index 29.8 Const: General: cooperative, healthy appearing and no acute distress Orientation/consciousness: patient oriented x3 Limitations: no limitations HENMT: Head: Yes normal to inspection, Yes normocephalic and Yes atraumatic Ears: hearing grossly normal bilaterally General nose exam: Normal external n ose present Face and sinus: Yes normal facial exam Mouth: Normal oral and palatal mucosa present Throat: Yes posterior oropharynx normal Eyes: General: appearance normal, both eyes and all related structures Pupils: Equal, round and reactive pupils present EOM: EOMs intact bilaterally Neck: Neck: Yes normal visual inspection, Yes no lymphadenopathy and Yes no meningeal signs Resp: Effort & Inspection: normal respiratory effort Auscultation: clear to auscultation bilaterally, no rales, no rhonchi and no wheezes Cardio: Rate: regular rate Heart sounds: S1 normal heart sound present and S2 normal heart sound present GI: Inspection: Yes normal to inspection Palpation (GI): Soft to palpation, nontender, no guarding and not rigid : General: Yes no CVA tenderness Back/Spine/Pelvis: Back: no CVA tenderness Skin: Rashes: no rashes Wounds: no wounds Neuro: General: patient oriented x3, gait normal, tone normal, moves all extremities, no meningeal signs, no focal motor deficits and CN's II-XI intact bilaterally Cranial nerves: Yes Equal, round and reactive pupils present Gait exam (Neuro): Normal gait present Motor exam (neuro): 5/5 motor strength present throughout, Pronator motor function not present and no tremor noted Coordination: [id number] test normal Romberg Test: Negative Extrem: General: Yes normal to inspection, Yes no pedal edema and Yes no calf tenderness Course Course Course Narrative: -1336--no leukocytosis. H&H 13.8/39.6, 1 point dropped from 2 weeks ago. >> will obtain occult stool. Patient denies rectal bleeding/black stool/hematuria. -ALT mildly elevated at 47. CPK mildly elevated at 535 -UA negative, COVID 19 negative XR chest 1V IMPRESSION: Bronchial wall thickening may be infectious and/or inflammatory in etiology. (similar appearance on prior CT chest from April) -1415--occult stool negative. Patient eloped the ED prior to results discussion. Medical Decision Making [facility] Narrative Medical decision making narrative: 60-year-old male past medical history of asthma/COPD overlap, back pain, depression, diabetes, GERD, gout, neuropathy, PTSD, sarcoidosis, presenting to the ED complaining of diffuse body myalgias/body pain x1 month. On exam VS, NAD/well-appearing, physical exam as above, no focal neuro deficits. Lungs CTA, abdomen soft/nontender. Concern for metabolic or infectious etiology vs ?Rhabdomyolysis vs COVID-19/viral illness or dehydration Plan: EKG, labs, UA, CXR, reassess Lab Data Result diagrams: 09/10/21 12:25 09/10/21 12:25 Labs: Lab Results 09/10/21 09/10/21 09/10/21 Range/Units 11:52 11:56 12:25 WBC 5.9 (4.8-10.8) X10*3/uL RBC 4.43 L (4.60-5.80) X10*6/uL Hgb 13.8 L (14.0-18.0) g/dl Hct 39.6 L (42-52) % MCV 89.4 (80-98) fL MCH 31.2 (27.0-33.0) pg MCHC 34.8 (31.0-36.0) g/dl RDW 12.4 (11.0-16.0) % Plt Count 113 L D (160-400) X10*3/uL MPV 11.9 (9.4-12.4) fL Immature Gran % (Auto) 0.3 (0.0-0.4) % Neut % (Auto) 52.7 (45-73) % Lymph % (Auto) 37.5 (20-40) % [place] % (Auto) 6.3 (2-11) % Eos % (Auto) 2.7 (0-4) % Baso % (Auto) 0.5 (0-2) % Lymph # (Auto) 2.2 (1.2-4.9) X10*3/uL [place] # (Auto) 0.4 (0.1-1.2) X10*3/uL Eos # (Auto) 0.2 (0.0-0.4) X10*3/uL Baso # (Auto) 0.0 (0.0-0.2) X10*3/uL Abs Immat Gran (auto) 0.02 (0.00-0.03) X10*3/uL Absolute Neuts (auto) 3.1 (2.0-8.3) X10*3/uL Absolute Nucleated RBC 0.000 (0.0-0.012) X10*3/uL Nucleated RBC % (auto) 0.0 (0.0-0.2) /100WBC Sodium (135-145) mmol/L Potassium (3.3-5.1) mmol/L Chloride (96-108) mmol/L Carbon Dioxide (22-29) mmol/L Anion Gap (12-20) BUN (9-16) mg/dL Creatinine (0.5-1.4) mg/dL Estim Creat Clear Calc Estimated GFR Random Glucose (60-115) mg/dL Calcium (8.4-10.2) mg/dL Magnesium (1.6-2.6) mg/dL Total Bilirubin (0.0-1.0) mg/dL Direct Bilirubin (0.0-0.5) mg/dL AST (5-37) U/L ALT (0-40) U/L Alkaline Phosphatase (39-117) U/L Total Creatine Kinase (38-174) U/L Total Protein (6.5-8.0) g/dL Albumin (3.5-5.0) g/dL Urine Color YELLOW Urine Appearance CLEAR Urine pH 6.0 (5.0-8.0) Ur Specific [place] 1.020 (1.005-1.025) Urine Protein NEG (NEG-TRACE) MG/DL Urine Glucose (UA) >=1000 H (NEG) MG/DL Urine Ketones NEG (NEG) MG/DL Urine Blood NEG (NEG) Urine Nitrite NEG (NEG) Ur Leukocyte Esterase NEG (NEG) Urine RBC 0 (0) /HPF Urine WBC 0 (0-4) /HPF Ur Squamous Epith Cells NONE /LPF Urine Bacteria NONE /LPF Stool Occult Blood (NEGATIVE) COVID-19 (PRECIOUS) Negative (Negative) COVID-19 Clin Com See Note 09/10/21 09/10/21 Range/Units 12:25 14:00 WBC (4.8-10.8) X10*3/uL RBC (4.60-5.80) X10*6/uL Hgb (14.0-18.0) g/dl Hct (42-52) % MCV (80-98) fL MCH (27.0-33.0) pg MCHC (31.0-36.0) g/dl RDW (11.0-16.0) % Plt Count (160-400) X10*3/uL MPV (9.4-12.4) fL Immature Gran % (Auto) (0.0-0.4) % Neut % (Auto) (45-73) % Lymph % (Auto) (20-40) % [place] % (Auto) (2-11) % Eos % (Auto) (0-4) % Baso % (Auto) (0-2) % Lymph # (Auto) (1.2-4.9) X10*3/uL [place] # (Auto) (0.1-1.2) X10*3/uL Eos # (Auto) (0.0-0.4) X10*3/uL Baso # (Auto) (0.0-0.2) X10*3/uL Abs Immat Gran (auto) (0.00-0.03) X10*3/uL Absolute Neuts (auto) (2.0-8.3) X10*3/uL Absolute Nucleated RBC (0.0-0.012) X10*3/uL Nucleated RBC % (auto) (0.0-0.2) /100WBC Sodium 140 (135-145) mmol/L Potassium 4.4 (3.3-5.1) mmol/L Chloride 104 (96-108) mmol/L Carbon Dioxide 28 (22-29) mmol/L Anion Gap 12 (12-20) BUN 13 (9-16) mg/dL Creatinine 1.03 (0.5-1.4) mg/dL Estim Creat Clear Calc 94.4 Estimated GFR > 60 Random Glucose 233 H D (60-115) mg/dL Calcium 9.4 (8.4-10.2) mg/dL Magnesium 1.9 (1.6-2.6) mg/dL Total Bilirubin 0.5 (0.0-1.0) mg/dL Direct Bilirubin 0.2 (0.0-0.5) mg/dL AST 35 (5-37) U/L ALT 47 H (0-40) U/L Alkaline Phosphatase 120 H (39-117) U/L Total Creatine Kinase 535 H (38-174) U/L Total Protein 6.7 (6.5-8.0) g/dL Albumin 4.1 (3.5-5.0) g/dL Urine Color Urine Appearance Urine pH (5.0-8.0) Ur Specific [place] (1.005-1.025) Urine Protein (NEG-TRACE) MG/DL Urine Glucose (UA) (NEG) MG/DL Urine Ketones (NEG) MG/DL Urine Blood (NEG) Urine Nitrite (NEG) Ur Leukocyte Esterase (NEG) Urine RBC (0) /HPF Urine WBC (0-4) /HPF Ur Squamous Epith Cells /LPF Urine Bacteria /LPF Stool Occult Blood NEGATIVE (NEGATIVE) COVID-19 (PRECIOUS) (Negative) COVID-19 Clin Com ECG Data Attestation: I personally reviewed and interpreted this ECG as follows: Prior ECG tracings: available for review Interpretation: EKG normal sinus rhythm. Rate is 71. QTC 415. Nonischemic/no STEMI Discharge Plan Discharge Clinical Impression: Myalgia Patient Disposition: Elopement Prescriptions: No Action clonazepam 0.5 mg tablet 1 tab PO TID PRN (Reason: anxiety) RF: 0 prazosin 5 mg capsule 3 cap PO BEDTIME RF: 0 duloxetine [Cymbalta] 30 mg capsule,delayed release(DR/EC) 1 cap PO BID RF: 0 azithromycin 250 mg tablet 250 mg PO DAILY 4 Days Qty: 4 RF: 0 cefuroxime axetil 500 mg tablet 500 mg PO Q12H 10 Days Qty: 20 RF: 0 Trelegy Ellipta 200-62.5-25 mcg blister with device 1 inh inhalation DAILY 30 Days Qty: 60 RF: 12 albuterol sulfate 2.5 mg /3 mL (0.083 %) solution for nebulization 2.5 mg inhalation Q4H PRN (Reason: shortness of breath or wheezing) 30 Days Qty: 180 RF: 11 nicotine [Nicoderm CQ] 14 mg/24 hr patch 24 hour 1 patch transdermal DAILY 28 Days Qty: 28 RF: 3 fluticasone propionate 50 mcg/actuation spray,suspension 2 spray intranasal DAILY PRN (Reason: congestion) RF: 0 albuterol sulfate 90 mcg/actuation HFA aerosol inhaler 2 puff inhalation Q4-6H PRNRF: 0 acetaminophen 500 mg tablet 500 mg PO Q6-8H PRN (Reason: fever) RF: 0 azithromycin 250 mg tablet 250 mg PO 3XW 28 Days Qty: 12 RF: 6 Discharge Date/Time: 09/10/21 14:18
[2021-09-10 14:04] LABS: OBS Int Ctl Valid YES; OBS1 NEGATIVE (NEGATIVE)
--- NOTE | 2021-09-10 14:08 | PC.NURSE ---
THIS RN ASSISTED PA WITH RECTAL EXAM. PT TOLERATED PROCEDURE WELL.
--- NOTE | 2021-09-10 14:09 | PC.NURSE ---
PT REFUSING IBUPROFEN. PT SAYING I TOOK THAT ALL NIGHT LONG, THAT IS NOT GOING TO HELP.
--- NOTE | 2021-09-10 14:17 | PC.NURSE ---
PT DECLINED MOTRIN, THIS RN WENT BACK TO ROOM TO OFFER PATIENT FLEXERIL AND PT WAS GONE, ID BAND LYING ON THE STRETCHER. PT ELOPED.
== END 2021-09-10 14:18 | disposition left against medical advice (07) ==
PROVIDERS: Physician Assistant; Emergency Provider Emergency Medicine; PCP Internal Medicine
DX: M79.10 Myalgia, unspecified site (principal); E11.40 Type 2 diabetes mellitus with diabetic neuropathy, unspecified; J44.9 Chronic obstructive pulmonary disease, unspecified; Z20.822 Contact with and (suspected) exposure to COVID-19
CPT/HCPCS: 36415; 71045; 80048; 80076; 81001; 81003; 82272; 82550; 83735; 85025; 87635; 93005; 99284

== ENCOUNTER → 2021-11-10 14:47 | Outpatient (BNVA) | payer OTHER, SELFPAY | PROVIDERS: PCP Internal Medicine; Visit Provider Hospitalist | DX: D86.9 Sarcoidosis, unspecified (principal); J18.9 Pneumonia, unspecified organism; J44.9 Chronic obstructive pulmonary disease, unspecified; F17.210 Nicotine dependence, cigarettes, uncomplicated | CPT/HCPCS: 99212 ==

== ENCOUNTER 2021-12-02 14:39 | Emergency (ER) | payer OTHER, SELFPAY ==
--- NOTE | ~2021-12-02 | XR_ITS ---
EXAMINATION: BILATERAL KNEE X-RAY CLINICAL INFORMATION: Fall COMPARISON: Left knee x-ray October 2014 TECHNIQUE: 2 views of each knee FINDINGS: Right: Bone alignment is normal. No fracture or dislocation is seen. There are small osteophytes at the patellofemoral joint. There is no joint effusion. There is an osteophyte at the quadriceps tendon insertion to the patella and patellar tendon insertion to the tibial tuberosity. Left: Bone alignment is normal. No fracture or dislocation is seen. There are small osteophytes at the patellofemoral joint. There is no joint effusion. There is an osteophyte at the quadriceps tendon insertion to the patella and patellar tendon insertion to the tibial tuberosity. There is atherosclerotic disease. XR/XR knee LT 2V IMPRESSION: Degenerative changes. No fracture seen. EXAMINATION: Right hand x-ray CLINICAL INFORMATION: Pain. Fall. COMPARISON: Previous x-ray February 2019 TECHNIQUE: 3 views of the right hand FINDINGS: Bone alignment is normal. No fracture or dislocation is seen. There is mild arthritis at the first MCP joint and the DIP joints. There may be soft tissue swelling over the MCP joints of the fourth finger seen on the lateral view. IMPRESSION: Mild degenerative changes. No fracture seen.
--- NOTE | ~2021-12-02 | XR_ITS ---
EXAMINATION: BILATERAL KNEE X-RAY CLINICAL INFORMATION: Fall COMPARISON: Left knee x-ray October 2014 TECHNIQUE: 2 views of each knee FINDINGS: Right: Bone alignment is normal. No fracture or dislocation is seen. There are small osteophytes at the patellofemoral joint. There is no joint effusion. There is an osteophyte at the quadriceps tendon insertion to the patella and patellar tendon insertion to the tibial tuberosity. Left: Bone alignment is normal. No fracture or dislocation is seen. There are small osteophytes at the patellofemoral joint. There is no joint effusion. There is an osteophyte at the quadriceps tendon insertion to the patella and patellar tendon insertion to the tibial tuberosity. There is atherosclerotic disease. XR/XR hand RT 2V IMPRESSION: Degenerative changes. No fracture seen. EXAMINATION: Right hand x-ray CLINICAL INFORMATION: Pain. Fall. COMPARISON: Previous x-ray February 2019 TECHNIQUE: 3 views of the right hand FINDINGS: Bone alignment is normal. No fracture or dislocation is seen. There is mild arthritis at the first MCP joint and the DIP joints. There may be soft tissue swelling over the MCP joints of the fourth finger seen on the lateral view. IMPRESSION: Mild degenerative changes. No fracture seen.
--- NOTE | ~2021-12-02 | XR_ITS ---
EXAMINATION: BILATERAL KNEE X-RAY CLINICAL INFORMATION: Fall COMPARISON: Left knee x-ray October 2014 TECHNIQUE: 2 views of each knee FINDINGS: Right: Bone alignment is normal. No fracture or dislocation is seen. There are small osteophytes at the patellofemoral joint. There is no joint effusion. There is an osteophyte at the quadriceps tendon insertion to the patella and patellar tendon insertion to the tibial tuberosity. Left: Bone alignment is normal. No fracture or dislocation is seen. There are small osteophytes at the patellofemoral joint. There is no joint effusion. There is an osteophyte at the quadriceps tendon insertion to the patella and patellar tendon insertion to the tibial tuberosity. There is atherosclerotic disease. XR/XR knee RT 2V IMPRESSION: Degenerative changes. No fracture seen. EXAMINATION: Right hand x-ray CLINICAL INFORMATION: Pain. Fall. COMPARISON: Previous x-ray February 2019 TECHNIQUE: 3 views of the right hand FINDINGS: Bone alignment is normal. No fracture or dislocation is seen. There is mild arthritis at the first MCP joint and the DIP joints. There may be soft tissue swelling over the MCP joints of the fourth finger seen on the lateral view. IMPRESSION: Mild degenerative changes. No fracture seen.
[2021-12-02 15:43] VITALS: BP 140/74; PULSE 75; RESP 18; TEMP 37; O2SAT 98; BMI 29.8
--- NOTE | 2021-12-02 16:59 | ED.FALL ---
HPI - Fall General Chief Complaint: Fall Stated Complaint: fell/ R hand/ knee pain Time Seen by Provider: 12/02/21 16:45 History of Present Illness HPI Narrative: Patient complains of right hand and wrist and bilateral knee pain after he tripped and fell slipping on the ice today no head injury no neck injury no back pain no numbness weakness or tingling Related Data Home Medications Medication Instructions Recorded Confirmed clonazepam 0.5 mg tablet 1 tab PO TID PRN 01/19/21 06/21/21 duloxetine 30 mg capsule,delayed 1 cap PO BID 01/19/21 06/21/21 release (Cymbalta) prazosin 5 mg capsule 3 cap PO BEDTIME 01/19/21 06/21/21 acetaminophen 500 mg tablet 500 mg PO Q6-8H PRN 05/26/21 06/21/21 fluticasone propionate 50 2 spray INTRANASAL DAILY PRN 05/26/21 06/21/21 mcg/actuation nasal spray,suspension Previous Rx's Medication Instructions Recorded cefuroxime axetil 500 mg tablet 500 mg PO Q12H 10 Days #20 tab 05/24/21 nicotine 14 mg/24 hr daily 1 patch TRANSDERMAL DAILY 28 Days 06/21/21 transdermal patch (Nicoderm CQ) #28 ea albuterol sulfate 2.5 mg (3 mL) INHALATION Q4H PRN 11/10/21 30 Days #180 ml albuterol sulfate 90 mcg/actuation 2 puff INHALATION Q4-6H PRN 30 11/10/21 aerosol inhaler Days #8.5 g fluticasone fur. 200 mcg-umeclid 1 inh INHALATION DAILY 30 Days #60 11/10/21 62.5 mcg-vilant 25 mcg ea inhalat.powder (Trelegy Ellipta) naproxen 500 mg tablet (Naprosyn) 500 mg PO BID PRN #14 tab 12/02/21 oxycodone 5 mg tablet 5 mg PO Q6H PRN #10 tab 12/02/21 Allergies Allergy/AdvReac Type Severity Reaction Status Date / Time No Known Allergies Allergy Verified 12/02/21 15:43 Review of Systems Review of Systems: Positive right hand and wrist pain as well as bilateral knee pain Negative is no fever no chills no dizziness no fainting no feeling faint no head injury no headache no loss of consciousness no blurred vision no confusion no neck pain no numbness weakness or tingling no chest pain no abdominal pain no hip pain Yes all other systems are reviewed and are negative [facility] Past Medical History Source: nursing notes reviewed Medical History (Updated 12/02/21 @ 17:04 by NOEL Montemayor) Anxiety Asthma-COPD overlap syndrome Back pain Depression Diabetes GERD (gastroesophageal reflux disease) Gout Hyperhidrosis Neuropathy Pneumonitis PTSD (post-traumatic stress disorder) Sarcoidosis Surgical History History of bronchoscopy Hx of colonoscopy Family History Family History Father Myocardial infarction Mother No problems noted. Social History Social History Alcohol intake: current Alcohol intake frequency: does not drink Patient Tobacco Use Status: Current everyday Tobacco user Tobacco use type: Cigarette Cigarettes Per Day: 4 Years Smoked: 40 Second Hand Smoke Exposure: No Substance Use Type: Marijuana and Unknown Advance Directives: No Advance Directives Information Provided: No Physical Exam Vital Signs: Vital Signs: Last Vital Signs Temp 98.6 F 12/02/21 15:43 Pulse 75 12/02/21 15:43 Resp 18 12/02/21 15:43 BP 140/74 H 12/02/21 15:43 Pulse Ox 98 12/02/21 15:43 BMI result Body Mass Index 29.8 General appearance is no acute distress Head is normocephalic atraumatic Neck supple nontender Respiratory no distress Extremities is full range of motion x4 but with some discomfort in the right hand and wrist as well as the bilateral knees The knees each had small contusions, the pads were not ripped, there is full range of motion in the knee the patient extends fully and had tenderness over the anterior knee but no focal bony tenderness and is walking easily bearing weight easily The right hand had a contusion over the thenar eminence and full range of motion in the fingers and full range of motion in the wrist with some mild discomfort, no snuffbox tenderness, skin was intact and neurovascular intact distal Course Course Course Narrative: X-rays of right hand and bilateral knees did not reveal any fracture but did show arthritic changes Patient was able to ambulate slowly but requested crutches which did help him ambulate more easily and he is discharged to follow with orthopedics as needed Discharge Plan Discharge Clinical Impression: Contusion of hand, right, Contusion of knee, Osteoarthritis Patient Disposition: Home, Self-Care Additional Instructions: No sign of any broken bones or dangerous injuries You do have underlying arthritis which makes pain worse If needed follow with orthopedist Return any concerns Prescriptions: New naproxen [Naprosyn] 500 mg tablet 500 mg PO BID PRN (Reason: pain) Qty: 14 RF: 0 oxycodone 5 mg tablet 5 mg PO Q6H PRN (Reason: pain) Qty: 10 RF: 0 No Action clonazepam 0.5 mg tablet 1 tab PO TID PRN (Reason: anxiety) RF: 0 prazosin 5 mg capsule 3 cap PO BEDTIME RF: 0 duloxetine [Cymbalta] 30 mg capsule,delayed release(DR/EC) 1 cap PO BID RF: 0 cefuroxime axetil 500 mg tablet 500 mg PO Q12H 10 Days Qty: 20 RF: 0 nicotine [Nicoderm CQ] 14 mg/24 hr patch 24 hour 1 patch transdermal DAILY 28 Days Qty: 28 RF: 3 fluticasone propionate 50 mcg/actuation spray,suspension 2 spray intranasal DAILY PRN (Reason: congestion) RF: 0 acetaminophen 500 mg tablet 500 mg PO Q6-8H PRN (Reason: fever) RF: 0 albuterol sulfate 90 mcg/actuation HFA aerosol inhaler 2 puff inhalation Q4-6H PRN (Reason: bronchospasm) 30 Days Qty: 8.5 RF: 11 albuterol sulfate 2.5 mg /3 mL (0.083 %) solution for nebulization 2.5 mg inhalation Q4H PRN (Reason: shortness of breath or wheezing) 30 Days Qty: 180 RF: 11 Trelegy Ellipta 200-62.5-25 mcg blister with device 1 inh inhalation DAILY 30 Days Qty: 60 RF: 12 Referrals: Will Calzada MD [Physician] - 1 week (Bilateral knee pain, osteoarthritis) Interventions: ED Discharge Assessment Last Done: 12/02/21 17:16 Discharge Date/Time: 12/02/21 17:23
== END 2021-12-02 17:23 | disposition home or self-care (01) ==
PROVIDERS: Emergency Provider Emergency Medicine; PCP Internal Medicine
DX: S60.221A Contusion of right hand, initial encounter (principal); S80.01XA Contusion of right knee, initial encounter; M17.0 Bilateral primary osteoarthritis of knee; W00.0XXA Fall on same level due to ice and snow, initial encounter; Y93.29 Activity, other involving ice and snow; Y92.9 Unspecified place or not applicable; Y99.9 Unspecified external cause status; F17.210 Nicotine dependence, cigarettes, uncomplicated; Z71.6 Tobacco abuse counseling; Z79.899 Other long term (current) drug therapy
CPT/HCPCS: 73120; 73560; 99283

== ENCOUNTER 2021-12-15 11:40 | Outpatient (REF) | payer OTHER, SELFPAY ==
--- NOTE | ~2021-12-15 | US_ITS ---
EXAMINATION: BILATERAL LOWER EXTREMITY VENOUS ULTRASOUND (REFLUX EXAM) CLINICAL INDICATION: Bilateral leg pain. COMPARISON: None. TECHNIQUE: Color flow triplex imaging and compression Doppler was performed to evaluate both the deep and the superficial systems bilaterally. To evaluate the superficial system, the examination was performed in the upright position. Color-flow Doppler ultrasound and compression ultrasound were utilized. In addition, maneuvers were utilized to demonstrate reflux. FINDINGS: SUPERFICIAL ULTRASOUND WITH DOPPLER OF RIGHT LOWER EXTREMITY GREAT SAPHENOUS VEIN: Saphenofemoral junction: 0.6 cm Max diameter: 0.6 cm Min diameter: 0.3cm Reflux: There is right great saphenous reflux from below the knee to the ankle measuring up to 3.1 seconds. DUPLICATED MEDIAL GREAT SAPHENOUS VEIN: Max Diameter: None imaged Reflux: NA DUPLICATED LATERAL GREAT SAPHENOUS VEIN: Diameter: None imaged Reflux: NA SMALL SAPHENOUS VEIN: Proximal Calf: 0.3 cm Distal Calf: 0.2 cm Reflux: There is greater than 2.9 seconds of reflux at the level of the proximal calf. VEIN OF GIACOMINI: None imaged. PERFORATORS: Location: Distal calf, 0.3 cm Reflux: Greater than 2.7 seconds of reflux. VARICOSITIES: Location: Proximal calf, 0.2 cm. Reflux: Greater than 2.1 seconds of reflux. DEEP VENOUS ULTRASOUND OF THE RIGHT LOWER EXTREMITY: Common Femoral Vein: Compressible, normal respiratory variation and augmented flow. Femoral vein: Compressible, normal color flow and augmentation. Popliteal Vein: Compressible, normal augmentation. Deep Reflux: There is no evidence of reflux in the deep system in either the common femoral vein or the popliteal vein. Butsillo's Cyst: There is no evidence of a Bustillo's cyst. SUPERFICIAL ULTRASOUND WITH DOPPLER OF LEFT LOWER EXTREMITY GREAT SAPHENOUS VEIN: Saphenofemoral junction: 1.2 cm Max diameter: 1.2 cm Min diameter: 0.3 cm Reflux: No evidence of reflux. DUPLICATED MEDIAL GREAT SAPHENOUS VEIN: Max Diameter: None Imaged Reflux: NA DUPLICATED LATERAL GREAT SAPHENOUS VEIN: Diameter: 0.2 cm at the junction. Reflux: None SMALL SAPHENOUS VEIN: Proximal Calf: 0.9 cm Distal Calf: 0.3 cm Reflux: No evidence of reflux. VEIN OF GIACOMINI: None Imaged. PERFORATORS: Location: Midthigh, 0.3 cm and proximal calf, 0.2 cm. Reflux: None VARICOSITIES: Location: None Imaged Reflux: NA DEEP VENOUS ULTRASOUND OF THE LEFT LOWER EXTREMITY: Common Femoral Vein: Compressible, normal respiratory variation and augmented flow. Femoral vein: Compressible, normal color flow and augmentation. Popliteal Vein: Compressible, normal augmentation. Deep Reflux: There is no evidence of reflux in the deep system in either the common femoral vein or the popliteal vein. Bustillo's Cyst: There is no evidence of a Bustillo's cyst. US/US venous duplex LE BI IMPRESSION: 1. Segmental right great saphenous venous insufficiency from below the knee to the ankle. 2. No evidence of left great saphenous venous insufficiency. 3. Small saphenous venous insufficiency beginning at the proximal calf. 4. No evidence of DVT or deep venous insufficiency.
== END 2021-12-15 11:41 | disposition home or self-care (01) ==
LOC: HO.US 11:40
PROVIDERS: Visit Provider Family Medicine
DX: I83.11 Varicose veins of right lower extremity with inflammation (principal); M79.605 Pain in left leg; F17.210 Nicotine dependence, cigarettes, uncomplicated
CPT/HCPCS: 93970; 99202

== ENCOUNTER → 2021-12-22 14:13 | Outpatient (BNVA) | payer OTHER, SELFPAY | PROVIDERS: PCP Internal Medicine; Visit Provider Surgery Vascular Surgery | DX: M79.604 Pain in right leg (principal); F17.210 Nicotine dependence, cigarettes, uncomplicated; Z71.6 Tobacco abuse counseling | CPT/HCPCS: 99212 ==

== ENCOUNTER 2022-02-20 17:17 | Emergency (ER) | payer OTHER, SELFPAY ==
--- NOTE | 2022-02-20 | ECG_ITS ---
Test Reason : MED CLEARANCE Blood Pressure : / mmHG Vent. Rate : 094 BPM Atrial Rate : 094 BPM P-R Int : 182 ms QRS Dur : 086 ms QT Int : 372 ms P-R-T Axes : 064 018 031 degrees QTc Int : 465 ms Normal sinus rhythm Possible Left atrial enlargement Minimal voltage criteria for LVH, may be normal variant ( Sokolow-Oleary ) Borderline ECG When compared with ECG of 10-SEP-2021 12:21, No significant change was found Referred By: Generic ED Physician Electronically Signed By:PABLITO GARCIA
--- NOTE | ~2022-02-20 | XR_ITS ---
EXAMINATION: XR CHEST CLINICAL INFORMATION: Shortness of breath COMPARISON: 09/10/2020 TECHNIQUE: 2 views of the chest were obtained. FINDINGS: No significant abnormality is noted involving the heart, lungs, mediastinum, bony thorax or soft tissues. XR/XR chest 2V IMPRESSION: Unremarkable examination.
[2022-02-20 17:35] VITALS: BP 147/77; PULSE 100; RESP 19; TEMP 36.6; O2SAT 100; BMI 26.6
--- NOTE | 2022-02-20 18:05 | ED.PSYCH ---
HPI - Psych General Chief Complaint: Psychiatric Symptoms <NOEL Lechuga - Last Filed: 02/21/22 00:04> Stated Complaint: ANXIETY WANTTO TALK,NO HI/SI,CRISIS,VOLUNTARY <NOEL Lechuga Last Filed: 02/21/22 00:04> Time Seen by Provider: 02/20/22 17:33 <NOEL Lechuga - Last Filed: 02/21/22 00:04> Source: patient, EMS and old records reviewed <NOEL Lechuga - Last Filed: 02/21/22 00:04> Mode of arrival: EMS <NOEL Lechuga Last Filed: 02/21/22 00:04> Limitations: no limitations <NOEL Lechuga - Last Filed: 02/21/22 00:04> History of Present Illness HPI Narrative: 61-year-old male with history of pulmonary sarcoidosis, asthma-COPD overlap, diabetes not on insulin, GERD, PTSD, anxiety who presents to the ER from home via EMS with severe anxiety, worsening panic attacks and depression leading to suicidal ideation that has developed over the last 3 weeks. This is in the setting of him running out of his psychiatric medications. He states he follows with [facility] and his psychiatrist and therapist appointment for this month was rescheduled for next month. He has been contacting [facility] daily and requesting his mediations to be sent to the pharmacy but it never goes through. He has been off of his Cymbalta, Prazosin and Klonopin. He reports getting a few days worth of his Klonopin sent in last week. He has been having worsening anxiety and nightmares. He states it is so bad he would rather just and plans to run in front of an [address]. <NOEL Lechuga - Last Filed: 02/21/22 00:04> MD complaint: suicidal ideation, feels depressed and anxiety <NOEL Lechuga - Last Filed: 02/21/22 00:04> Onset (ago): week(s) (3) <NOEL Lechuga Last Filed: 02/21/22 00:04> Duration: getting worse <NOEL Lechuga Last Filed: 02/21/22 00:04> History of same: Yes <NOEL Lechuga - Last Filed: 02/21/22 00:04> Relieving factors: medication and therapy <NOEL Lechuga Last Filed: 02/21/22 00:04> Exacerbating factors: none <NOEL Lechuga Last Filed: 02/21/22 00:04> Context: not taking psychiatric medications and significant life stressor <NOEL Lechuga Last Filed: 02/21/22 00:04> Associated psychiatric symptoms: depression, suicidal ideation and racing thoughts <NOEL Lechuga - Last Filed: 02/21/22 00:04> Associated symptoms: headache, shortness of breath and insomnia <NOEL Lechuga Last Filed: 02/21/22 00:04> Treatments prior to arrival: none <NOEL Lechuga Last Filed: 02/21/22 00:04> If self harm: admits thoughts of self harm and has plan <NOEL Lechuga Last Filed: 02/21/22 00:04> Details of plan: run into traffic <NOEL Lechuga Last Filed: 02/21/22 00:04> Related Data Home Medications: Home Medications Medication Instructions Recorded Confirmed acetaminophen 500 mg tablet 500 mg PO Q6-8H PRN 05/26/21 02/20/22 blood sugar diagnostic (FreeStyle #10 ea 12/15/21 Lite Strips) lancets 33 gauge (TRUEplus Lancets) #100 ea 12/15/21 clonazepam 0.5 mg tablet 1 tab PO DAILY PRN 02/20/22 02/20/22 gabapentin 800 mg tablet 1 tab PO TID 02/20/22 02/20/22 prazosin 5 mg capsule 3 cap PO BEDTIME 02/20/22 02/20/22 Previous Rx's Medication Instructions Recorded nicotine 14 mg/24 hr daily 1 patch TRANSDERMAL DAILY 28 Days 06/21/21 transdermal patch (Nicoderm CQ) #28 ea albuterol sulfate 2.5 mg (3 mL) INHALATION Q4H PRN 11/10/21 30 Days #180 ml albuterol sulfate 90 mcg/actuation 2 puff INHALATION Q4-6H PRN 30 11/10/21 aerosol inhaler Days #8.5 g naproxen 500 mg tablet (Naprosyn) 500 mg PO BID PRN #14 tab 12/02/21 <NOEL Lechuga - Last Filed: 02/21/22 00:04> Allergies/Adverse Reactions: Allergies Allergy/AdvReac Type Severity Reaction Status Date / Time No Known Allergies Allergy Verified 12/15/21 11:18 <NOEL Lechuga - Last Filed: 02/21/22 00:04> Review of Systems Review of Systems: Constitutional: No Fever, No Chills ENT/Mouth: No sore throat, No Rhinorrhea, No Swallowing Difficulty Eyes: No Eye Pain, No Swelling, No Redness Cardiovascular: + Chest Pain, + SOB, No Orthopnea, No Edema Respiratory: No Cough, No Sputum, No Wheezing, No dyspnea Gastrointestinal: No Nausea, No Vomiting, No Diarrhea, No abdominal Pain Genitourinary: No Dysuria, No Urinary Frequency, No Hematuria Musculoskeletal: No joint pain, No Myalgias Skin: No Skin Lesions, No rash Neuro: No Weakness, No Numbness, No Dizziness, No Headache Psych: + Anxiety/Panic, + Depression, +SI, No HI, No AH, No VH Heme/Lymph: No Bruising, No Lymphadenopathy Endocrine: No Polyuria, No Polydipsia <NOEL Lechuga - Last Filed: 02/21/22 00:04> [facility] Past Medical History Medical History: Medical History Anxiety Asthma-COPD overlap syndrome Back pain Depression Diabetes GERD (gastroesophageal reflux disease) Gout Hyperhidrosis Neuropathy Pneumonitis PTSD (post-traumatic stress disorder) Sarcoidosis <NOEL Lechuga - Last Filed: 02/21/22 00:04> Surgical History: Surgical History History of bronchoscopy Hx of colonoscopy <NOEL Lechuga - Last Filed: 02/21/22 00:04> Family History Family History: Family History Father Myocardial infarction Mother No problems noted. <NOEL Lechuga - Last Filed: 02/21/22 00:04> Social History Social History: Social History Alcohol intake: current Alcohol intake frequency: does not drink Patient Tobacco Use Status: Current everyday Tobacco user Tobacco use type: Cigarette Cigarettes Per Day: 4 Years Smoked: 40 Second Hand Smoke Exposure: No Substance Use Type: Marijuana and Unknown Advance Directives: No Advance Directives Information Provided: No <NOEL Lechuga - Last Filed: 02/21/22 00:04> Physical Exam Vital Signs: Vital Signs: Last Vital Signs Temp 97.9 F 02/21/22 18:55 Pulse 92 02/21/22 18:55 Resp 16 02/21/22 18:55 BP 130/61 02/21/22 18:55 Pulse Ox 97 02/21/22 18:55 BMI result Body Mass Index 26.6 <NOEL Lechuga - Last Filed: 02/21/22 00:04> Vital Signs: Last Vital Signs Temp 97.9 F 02/21/22 18:55 Pulse 92 02/21/22 18:55 Resp 16 02/21/22 18:55 BP 130/61 02/21/22 18:55 Pulse Ox 97 02/21/22 18:55 BMI result Body Mass Index 26.6 <NOEL Grimaldo - Last Filed: 02/21/22 11:13> Vital Signs: Last Vital Signs Temp 97.9 F 02/21/22 18:55 Pulse 92 02/21/22 18:55 Resp 16 02/21/22 18:55 BP 130/61 02/21/22 18:55 Pulse Ox 97 02/21/22 18:55 BMI result Body Mass Index 26.6 <NOEL Magallon - Last Filed: 02/21/22 19:32> Appearance: Alert. Oriented X3. No acute distress. Eyes: Pupils equal, round and reactive to light. ENT: Pharynx normal. Neck: Normal inspection. Neck supple. CVS: Normal heart rate and rhythm. Pulses normal. Respiratory: Mild respiratory distress with RR 22 due to anxiety. Breath sounds normal. Abdomen: Soft and nontender. +BS x4 Skin: Skin warm and dry. Normal skin color. Normal skin turgor. No rashes. Extremities: No lower extremity edema. Neuro/psych: Oriented X 3. CN II-XII intact. No motor deficit. No sensory deficit. Anxious, hyperverbal. Poor insight and judgment. Suicidal. <NOEL Lechuga - Last Filed: 02/21/22 00:04> Course Course Course Narrative: 61-year-old male with a history of PTSD, anxiety, sarcoidosis, GERD, diabetes, varicose veins who presents to the ER with worsening anxiety, depression, suicidality in the setting of not being prescribed his regular psychiatric medications. He also reports SOB and was reporting chest pain to EMS (now resolved), likely in the setting of severe anxiety. Will check CXR, EKG and medical workup. Will need to be seen by crisis team once medically cleared. <NOEL Lechuga - Last Filed: 02/21/22 00:04> 61-year-old male with a history of PTSD, anxiety, sarcoidosis, GERD, diabetes, varicose veins who presents to the ER with worsening anxiety, depression, suicidality in the setting of not being prescribed his regular psychiatric medications. He also reports SOB and was reporting chest pain to EMS (now resolved), likely in the setting of severe anxiety. Will check CXR, EKG and medical workup. Will need to be seen by crisis team once medically cleared. 193 on 02/21/2022 - Spoke to CARE team who recommends the patient be discharged. <NOEL Magallon - Last Filed: 02/21/22 19:32> Reevaluation(s) Reevaluation #1: Lab workup unremarkable. CXR clear. EKG without ischemic changes. Patient extremely anxious, impulsive, intmittently agitated with racing thoughts. Required IM ativan earlier and given PO haldol with good effect. At this time patient is medically cleared. Physician observation started at 12:00am. Patient placed in physician observation because patient is awaiting [facility] evaluation for the possible need of inpatient psych admission. At the time observation was started patient's vital signs were stable. Patient is alert and oriented. Neuro exam is non-focal. CV: RRR and lungs are clear. Will continue to monitor. <NOEL Lechuga - Last Filed: 02/21/22 00:04> Reevaluation #2: Physician observation continued. Patient awaiting [facility] evaluation. Patient not in any distress. Neuro exam intact bird. Patient watching television in bed. <NOEL Grimaldo - Last Filed: 02/21/22 11:13> MDM - Psych Lab Data Result diagrams: : 02/20/22 19:07 02/20/22 19:07 <NOEL Lechuga - Last Filed: 02/21/22 00:04> Labs: Lab Results 02/20/22 02/20/22 02/20/22 Range/Units 17:54 18:00 19:07 WBC 6.8 (4.8-10.8) X10*3/uL RBC 5.27 (4.60-5.80) X10*6/uL Hgb 16.2 (14.0-18.0) g/dl Hct 47.7 (42.0-52.0) % MCV 90.5 (80.0-98.0) fL MCH 30.7 (27.0-33.0) pg MCHC 34.0 (31.0-36.0) g/dl RDW 12.7 (11.0-16.0) % Plt Count 248 (160-400) X10*3/uL MPV 12.1 (9.4-12.4) fL Immature Gran % (Auto) 0.4 (0.0-0.4) % Neut % (Auto) 45.3 (45-73) % Lymph % (Auto) 46.2 H (20-40) % [place] % (Auto) 5.4 (2-11) % Eos % (Auto) 1.8 (0-4) % Baso % (Auto) 0.9 (0-2) % Lymph # (Auto) 3.2 (1.2-4.9) X10*3/uL [place] # (Auto) 0.4 (0.1-1.2) X10*3/uL Eos # (Auto) 0.1 (0.0-0.4) X10*3/uL Baso # (Auto) 0.1 (0.0-0.2) X10*3/uL Abs Immat Gran (auto) 0.03 (0.00-0.03) X10*3/uL Absolute Neuts (auto) 3.1 (2.0-8.3) x10*3/uL Absolute Nucleated RBC 0.000 (0.0-0.012) X10*3/uL Nucleated RBC % (auto) 0.0 (0.0-0.2) /100WBC Sodium (135-145) mmol/L Potassium (3.3-5.1) mmol/L Chloride (96-108) mmol/L Carbon Dioxide (22-29) mmol/L Anion Gap (12-20) BUN (9-16) mg/dL Creatinine (0.5-1.4) mg/dL Estim Creat Clear Calc Estimated GFR POC Glucose (60-115) mg/dL Random Glucose (60-115) mg/dL Calcium (8.4-10.2) mg/dL Magnesium (1.6-2.6) mg/dL Total Bilirubin (0.0-1.0) mg/dL Direct Bilirubin (0.0-0.5) mg/dL AST (5-37) U/L ALT (0-40) U/L Alkaline Phosphatase (39-117) U/L Total Protein (6.5-8.0) g/dL Albumin (3.5-5.0) g/dL Urine Opiates Screen Not Detected (Not Detect) Urine Fentanyl Screen Not Detected (Not Detect) Ur Barbiturates Screen Not Detected (Not Detect) Ur Phencyclidine Scrn Not Detected (Not Detect) Ur Amphetamines Screen Not Detected (Not Detect) U Benzodiazepines Scrn Not Detected (Not Detect) Urine Cocaine Screen Not Detected (Not Detect) U Marijuana (THC) Screen POSITIVE H (Not Detect) Ethyl Alcohol mg/dL COVID-19 (PRECIOUS) Negative (Negative) COVID-19 Clin Com See Note 02/20/22 02/20/22 02/20/22 Range/Units 19:07 19:07 19:44 WBC (4.8-10.8) X10*3/uL RBC (4.60-5.80) X10*6/uL Hgb (14.0-18.0) g/dl Hct (42.0-52.0) % MCV (80.0-98.0) fL MCH (27.0-33.0) pg MCHC (31.0-36.0) g/dl RDW (11.0-16.0) % Plt Count (160-400) X10*3/uL MPV (9.4-12.4) fL Immature Gran % (Auto) (0.0-0.4) % Neut % (Auto) (45-73) % Lymph % (Auto) (20-40) % [place] % (Auto) (2-11) % Eos % (Auto) (0-4) % Baso % (Auto) (0-2) % Lymph # (Auto) (1.2-4.9) X10*3/uL [place] # (Auto) (0.1-1.2) X10*3/uL Eos # (Auto) (0.0-0.4) X10*3/uL Baso # (Auto) (0.0-0.2) X10*3/uL Abs Immat Gran (auto) (0.00-0.03) X10*3/uL Absolute Neuts (auto) (2.0-8.3) x10*3/uL Absolute Nucleated RBC (0.0-0.012) X10*3/uL Nucleated RBC % (auto) (0.0-0.2) /100WBC Sodium 144 (135-145) mmol/L Potassium 4.0 (3.3-5.1) mmol/L Chloride 105 (96-108) mmol/L Carbon Dioxide 21 L (22-29) mmol/L Anion Gap 22 H (12-20) BUN 11 (9-16) mg/dL Creatinine 1.23 (0.5-1.4) mg/dL Estim Creat Clear Calc 63.8 Estimated GFR > 60 POC Glucose 178 H (60-115) mg/dL Random Glucose 222 H (60-115) mg/dL Calcium 10.0 D (8.4-10.2) mg/dL Magnesium 2.2 (1.6-2.6) mg/dL Total Bilirubin 0.9 (0.0-1.0) mg/dL Direct Bilirubin 0.3 (0.0-0.5) mg/dL AST 17 D (5-37) U/L ALT 23 (0-40) U/L Alkaline Phosphatase 116 (39-117) U/L Total Protein 8.2 H D (6.5-8.0) g/dL Albumin 4.8 (3.5-5.0) g/dL Urine Opiates Screen (Not Detect) Urine Fentanyl Screen (Not Detect) Ur Barbiturates Screen (Not Detect) Ur Phencyclidine Scrn (Not Detect) Ur Amphetamines Screen (Not Detect) U Benzodiazepines Scrn (Not Detect) Urine Cocaine Screen (Not Detect) U Marijuana (THC) Screen (Not Detect) Ethyl Alcohol < 10 mg/dL COVID-19 (PRECIOUS) (Negative) COVID-19 Clin Com <NOEL Lechuga - Last Filed: 02/21/22 00:04> Lab Results 02/20/22 02/20/22 02/20/22 Range/Units 17:54 18:00 19:07 WBC 6.8 (4.8-10.8) X10*3/uL RBC 5.27 (4.60-5.80) X10*6/uL Hgb 16.2 (14.0-18.0) g/dl Hct 47.7 (42.0-52.0) % MCV 90.5 (80.0-98.0) fL MCH 30.7 (27.0-33.0) pg MCHC 34.0 (31.0-36.0) g/dl RDW 12.7 (11.0-16.0) % Plt Count 248 (160-400) X10*3/uL MPV 12.1 (9.4-12.4) fL Immature Gran % (Auto) 0.4 (0.0-0.4) % Neut % (Auto) 45.3 (45-73) % Lymph % (Auto) 46.2 H (20-40) % [place] % (Auto) 5.4 (2-11) % Eos % (Auto) 1.8 (0-4) % Baso % (Auto) 0.9 (0-2) % Lymph # (Auto) 3.2 (1.2-4.9) X10*3/uL [place] # (Auto) 0.4 (0.1-1.2) X10*3/uL Eos # (Auto) 0.1 (0.0-0.4) X10*3/uL Baso # (Auto) 0.1 (0.0-0.2) X10*3/uL Abs Immat Gran (auto) 0.03 (0.00-0.03) X10*3/uL Absolute Neuts (auto) 3.1 (2.0-8.3) x10*3/uL Absolute Nucleated RBC 0.000 (0.0-0.012) X10*3/uL Nucleated RBC % (auto) 0.0 (0.0-0.2) /100WBC Sodium (135-145) mmol/L Potassium (3.3-5.1) mmol/L Chloride (96-108) mmol/L Carbon Dioxide (22-29) mmol/L Anion Gap (12-20) BUN (9-16) mg/dL Creatinine (0.5-1.4) mg/dL Estim Creat Clear Calc Estimated GFR POC Glucose (60-115) mg/dL Random Glucose (60-115) mg/dL Calcium (8.4-10.2) mg/dL Magnesium (1.6-2.6) mg/dL Total Bilirubin (0.0-1.0) mg/dL Direct Bilirubin (0.0-0.5) mg/dL AST (5-37) U/L ALT (0-40) U/L Alkaline Phosphatase (39-117) U/L Total Protein (6.5-8.0) g/dL Albumin (3.5-5.0) g/dL Urine Opiates Screen Not Detected (Not Detect) Urine Fentanyl Screen Not Detected (Not Detect) Ur Barbiturates Screen Not Detected (Not Detect) Ur Phencyclidine Scrn Not Detected (Not Detect) Ur Amphetamines Screen Not Detected (Not Detect) U Benzodiazepines Scrn Not Detected (Not Detect) Urine Cocaine Screen Not Detected (Not Detect) U Marijuana (THC) Screen POSITIVE H (Not Detect) Ethyl Alcohol mg/dL COVID-19 (PRECIOUS) Negative (Negative) COVID-19 Clin Com See Note 02/20/22 02/20/22 02/20/22 Range/Units 19:07 19:07 19:44 WBC (4.8-10.8) X10*3/uL RBC (4.60-5.80) X10*6/uL Hgb (14.0-18.0) g/dl Hct (42.0-52.0) % MCV (80.0-98.0) fL MCH (27.0-33.0) pg MCHC (31.0-36.0) g/dl RDW (11.0-16.0) % Plt Count (160-400) X10*3/uL MPV (9.4-12.4) fL Immature Gran % (Auto) (0.0-0.4) % Neut % (Auto) (45-73) % Lymph % (Auto) (20-40) % [place] % (Auto) (2-11) % Eos % (Auto) (0-4) % Baso % (Auto) (0-2) % Lymph # (Auto) (1.2-4.9) X10*3/uL [place] # (Auto) (0.1-1.2) X10*3/uL Eos # (Auto) (0.0-0.4) X10*3/uL Baso # (Auto) (0.0-0.2) X10*3/uL Abs Immat Gran (auto) (0.00-0.03) X10*3/uL Absolute Neuts (auto) (2.0-8.3) x10*3/uL Absolute Nucleated RBC (0.0-0.012) X10*3/uL Nucleated RBC % (auto) (0.0-0.2) /100WBC Sodium 144 (135-145) mmol/L Potassium 4.0 (3.3-5.1) mmol/L Chloride 105 (96-108) mmol/L Carbon Dioxide 21 L (22-29) mmol/L Anion Gap 22 H (12-20) BUN 11 (9-16) mg/dL Creatinine 1.23 (0.5-1.4) mg/dL Estim Creat Clear Calc 63.8 Estimated GFR > 60 POC Glucose 178 H (60-115) mg/dL Random Glucose 222 H (60-115) mg/dL Calcium 10.0 D (8.4-10.2) mg/dL Magnesium 2.2 (1.6-2.6) mg/dL Total Bilirubin 0.9 (0.0-1.0) mg/dL Direct Bilirubin 0.3 (0.0-0.5) mg/dL AST 17 D (5-37) U/L ALT 23 (0-40) U/L Alkaline Phosphatase 116 (39-117) U/L Total Protein 8.2 H D (6.5-8.0) g/dL Albumin 4.8 (3.5-5.0) g/dL Urine Opiates Screen (Not Detect) Urine Fentanyl Screen (Not Detect) Ur Barbiturates Screen (Not Detect) Ur Phencyclidine Scrn (Not Detect) Ur Amphetamines Screen (Not Detect) U Benzodiazepines Scrn (Not Detect) Urine Cocaine Screen (Not Detect) U Marijuana (THC) Screen (Not Detect) Ethyl Alcohol < 10 mg/dL COVID-19 (PRECIOUS) (Negative) COVID-19 Clin Com <NOEL Grimaldo - Last Filed: 02/21/22 11:13> Lab Results 02/20/22 02/20/22 02/20/22 Range/Units 17:54 18:00 19:07 WBC 6.8 (4.8-10.8) X10*3/uL RBC 5.27 (4.60-5.80) X10*6/uL Hgb 16.2 (14.0-18.0) g/dl Hct 47.7 (42.0-52.0) % MCV 90.5 (80.0-98.0) fL MCH 30.7 (27.0-33.0) pg MCHC 34.0 (31.0-36.0) g/dl RDW 12.7 (11.0-16.0) % Plt Count 248 (160-400) X10*3/uL MPV 12.1 (9.4-12.4) fL Immature Gran % (Auto) 0.4 (0.0-0.4) % Neut % (Auto) 45.3 (45-73) % Lymph % (Auto) 46.2 H (20-40) % [place] % (Auto) 5.4 (2-11) % Eos % (Auto) 1.8 (0-4) % Baso % (Auto) 0.9 (0-2) % Lymph # (Auto) 3.2 (1.2-4.9) X10*3/uL [place] # (Auto) 0.4 (0.1-1.2) X10*3/uL Eos # (Auto) 0.1 (0.0-0.4) X10*3/uL Baso # (Auto) 0.1 (0.0-0.2) X10*3/uL Abs Immat Gran (auto) 0.03 (0.00-0.03) X10*3/uL Absolute Neuts (auto) 3.1 (2.0-8.3) x10*3/uL Absolute Nucleated RBC 0.000 (0.0-0.012) X10*3/uL Nucleated RBC % (auto) 0.0 (0.0-0.2) /100WBC Sodium (135-145) mmol/L Potassium (3.3-5.1) mmol/L Chloride (96-108) mmol/L Carbon Dioxide (22-29) mmol/L Anion Gap (12-20) BUN (9-16) mg/dL Creatinine (0.5-1.4) mg/dL Estim Creat Clear Calc Estimated GFR POC Glucose (60-115) mg/dL Random Glucose (60-115) mg/dL Calcium (8.4-10.2) mg/dL Magnesium (1.6-2.6) mg/dL Total Bilirubin (0.0-1.0) mg/dL Direct Bilirubin (0.0-0.5) mg/dL AST (5-37) U/L ALT (0-40) U/L Alkaline Phosphatase (39-117) U/L Total Protein (6.5-8.0) g/dL Albumin (3.5-5.0) g/dL Urine Opiates Screen Not Detected (Not Detect) Urine Fentanyl Screen Not Detected (Not Detect) Ur Barbiturates Screen Not Detected (Not Detect) Ur Phencyclidine Scrn Not Detected (Not Detect) Ur Amphetamines Screen Not Detected (Not Detect) U Benzodiazepines Scrn Not Detected (Not Detect) Urine Cocaine Screen Not Detected (Not Detect) U Marijuana (THC) Screen POSITIVE H (Not Detect) Ethyl Alcohol mg/dL COVID-19 (PRECIOUS) Negative (Negative) COVID-19 Clin Com See Note 02/20/22 02/20/22 02/20/22 Range/Units 19:07 19:07 19:44 WBC (4.8-10.8) X10*3/uL RBC (4.60-5.80) X10*6/uL Hgb (14.0-18.0) g/dl Hct (42.0-52.0) % MCV (80.0-98.0) fL MCH (27.0-33.0) pg MCHC (31.0-36.0) g/dl RDW (11.0-16.0) % Plt Count (160-400) X10*3/uL MPV (9.4-12.4) fL Immature Gran % (Auto) (0.0-0.4) % Neut % (Auto) (45-73) % Lymph % (Auto) (20-40) % [place] % (Auto) (2-11) % Eos % (Auto) (0-4) % Baso % (Auto) (0-2) % Lymph # (Auto) (1.2-4.9) X10*3/uL [place] # (Auto) (0.1-1.2) X10*3/uL Eos # (Auto) (0.0-0.4) X10*3/uL Baso # (Auto) (0.0-0.2) X10*3/uL Abs Immat Gran (auto) (0.00-0.03) X10*3/uL Absolute Neuts (auto) (2.0-8.3) x10*3/uL Absolute Nucleated RBC (0.0-0.012) X10*3/uL Nucleated RBC % (auto) (0.0-0.2) /100WBC Sodium 144 (135-145) mmol/L Potassium 4.0 (3.3-5.1) mmol/L Chloride 105 (96-108) mmol/L Carbon Dioxide 21 L (22-29) mmol/L Anion Gap 22 H (12-20) BUN 11 (9-16) mg/dL Creatinine 1.23 (0.5-1.4) mg/dL Estim Creat Clear Calc 63.8 Estimated GFR > 60 POC Glucose 178 H (60-115) mg/dL Random Glucose 222 H (60-115) mg/dL Calcium 10.0 D (8.4-10.2) mg/dL Magnesium 2.2 (1.6-2.6) mg/dL Total Bilirubin 0.9 (0.0-1.0) mg/dL Direct Bilirubin 0.3 (0.0-0.5) mg/dL AST 17 D (5-37) U/L ALT 23 (0-40) U/L Alkaline Phosphatase 116 (39-117) U/L Total Protein 8.2 H D (6.5-8.0) g/dL Albumin 4.8 (3.5-5.0) g/dL Urine Opiates Screen (Not Detect) Urine Fentanyl Screen (Not Detect) Ur Barbiturates Screen (Not Detect) Ur Phencyclidine Scrn (Not Detect) Ur Amphetamines Screen (Not Detect) U Benzodiazepines Scrn (Not Detect) Urine Cocaine Screen (Not Detect) U Marijuana (THC) Screen (Not Detect) Ethyl Alcohol < 10 mg/dL COVID-19 (PRECIOUS) (Negative) COVID-19 Clin Com <NOEL Magallon - Last Filed: 02/21/22 19:32> Critical Care Time Critical Care Time Critical Care Time: No <NOLE Lechuga - Last Filed: 02/21/22 00:04> Discharge Plan Discharge Clinical Impression: Depression <NOEL Lechuga - Last Filed: 02/21/22 00:04> Patient Disposition: Home, Self-Care <NOEL Lechuga - Last Filed: 02/21/22 00:04> Instructions: Depression (ED), Depression (DC) <NOEL Lechuga - Last Filed: 02/21/22 00:04> Additional Instructions: Follow up with your primary care provider. Return to the emergency department immediately if your symptoms worsen or if you develop any dizziness, shortness of breath, difficulty breathing, chest pain, blurry vision, loss of vision, nausea, vomiting, abdominal pain, fever, chills, back pain, or any other complaints. <NOEL Lechuga - Last Filed: 02/21/22 00:04> Prescriptions: No Action naproxen [Naprosyn] 500 mg tablet 500 mg PO BID PRN (Reason: pain) Qty: 14 0RF clonazepam 0.5 mg tablet 1 tab PO DAILY PRN (Reason: Anxiety) 0RF prazosin 5 mg capsule 3 cap PO BEDTIME 0RF gabapentin 800 mg tablet 1 tab PO TID 0RF nicotine [Nicoderm CQ] 14 mg/24 hr patch 24 hour 1 patch transdermal DAILY 28 Days Qty: 28 3RF acetaminophen 500 mg tablet 500 mg PO Q6-8H PRN (Reason: fever) 0RF albuterol sulfate 90 mcg/actuation HFA aerosol inhaler 2 puff inhalation Q4-6H PRN (Reason: bronchospasm) 30 Days Qty: 8.5 11RF albuterol sulfate 2.5 mg /3 mL (0.083 %) solution for nebulization 2.5 mg inhalation Q4H PRN (Reason: shortness of breath or wheezing) 30 Days Qty: 180 11RF (DME) lancets [TRUEplus Lancets] 33 gauge misc See Rx Instructions ea Not Applicable BID Qty: 100 0RF Rx Instructions: As directed (DME) FreeStyle Lite Strips Strip See Rx Instructions ea Not Applicable BID Qty: 10 0RF Rx Instructions: As directed <NOEL Lechuga - Last Filed: 02/21/22 00:04> Referrals: Cy Ruano MD [Primary Care Provider] - 2 days <NOEL Lechuga - Last Filed: 02/21/22 00:04> Print Language: Romanian <NOEL Lechuga - Last Filed: 02/21/22 00:04>
[2022-02-20 18:18] LABS: COVID-19 Test Negative (Negative); IDNOW Serial# 55D5AD1C
[2022-02-20 18:31] LABS: Amphetamine Screen Urine Not Detected (Not Detect); Barbiturates, Urine Not Detected (Not Detect); Benzodiazepines Screen Urine Not Detected (Not Detect); Cannabinoid Screen Urine POSITIVE (Not Detect); Cocaine Screen Urine Not Detected (Not Detect); Fentanyl, urine Not Detected (Not Detect); Opiate Screen Urine Not Detected (Not Detect); Phencyclidine Screen Urine Not Detected (Not Detect)
--- NOTE | 2022-02-20 18:40 | PC.NURSE ---
Patient asked for breathing treatment, this nurse told patient that he had to wait for brew house supervisor to put order in. Pt stated fuck this I'm going home! This nurse informed patient that at this time he was not able to leave. Patient took a running leap at back door and slammed body into door and walked out ambulance bay. This nurse followed patient out yelling for security. Security brought patient back in brew house supervisor at bedside gave verbal order for lorazepam. Patient them had emesis x 3 on floor. Charge nurse, security and brew house supervisor as well as this nurse at bedside. This nurse then educated patient that medication was to help him with his anxiety and that it would allow him to calm down. Patient agreed to take medication willingly. this nurse administered medication in left deltoid without restraint. Patient is resting at this time. no s/s of pain or discomfort.
[2022-02-20] MEDS: LORazepam 2 MG/ML VIAL IM (18:56)
[2022-02-20 19:16] LABS: MANUAL DIFF FLAG NO
[2022-02-20 19:17] LABS: Basophils Absolute Auto 0.1 X10*3/uL (0.0-0.2); Basophils Percent Auto 0.9 % (0-2); Eosinophils Absolute Auto 0.1 X10*3/uL (0.0-0.4); Eosinophils Percent Auto 1.8 % (0-4); Hematocrit 47.7 % (42.0-52.0); Hemoglobin 16.2 g/dl (14.0-18.0); Imm Gran Abs Auto 0.03 X10*3/uL (0.00-0.03); Imm Gran Pct Auto 0.4 % (0.0-0.4); Lymphocytes Absolute Auto 3.2 X10*3/uL (1.2-4.9); Lymphocytes Percent Auto 46.2 % (20-40); Mean Corpuscular Hemoglobin 30.7 pg (27.0-33.0); Mean Corpuscular Volume 90.5 fL (80.0-98.0); Mean Platelet Volume 12.1 fL (9.4-12.4); Monocytes Absolute Auto 0.4 X10*3/uL (0.1-1.2); Monocytes Percent Auto 5.4 % (2-11); Neutrophils Absolute Auto 3.1 x10*3/uL (2.0-8.3); Neutrophils Percent Auto 45.3 % (45-73); Platelet Count 248 X10*3/uL (160-400); Red Blood Count 5.27 X10*6/uL (4.60-5.80); Red Cell Distribution Width 12.7 % (11.0-16.0); White Blood Count 6.8 X10*3/uL (4.8-10.8)
[2022-02-20] MEDS: Albuterol Sulfate (0.083%) 2.5 MG/3 ML VIAL.NEB INHALE (19:25)
[2022-02-20 19:33] LABS: Ethanol < 10 mg/dL
[2022-02-20 19:46] LABS: Alanine Aminotransferase 23 U/L (0-40); Albumin Level 4.8 g/dL (3.5-5.0); Alkaline Phosphatase 116 U/L (39-117); Anion Gap 22 (12-20); Aspartate Amino Transferase 17 U/L (5-37); Bilirubin Direct 0.3 mg/dL (0.0-0.5); Bilirubin Total 0.9 mg/dL (0.0-1.0); Blood Urea Nitrogen 11 mg/dL (9-16); Carbon Dioxide 21 mmol/L (22-29); Chloride 105 mmol/L (96-108); Creatinine Clr Calc Pharmacy 63.8; Estimated Glomerular Filt Rate > 60; Glucose Random 222 mg/dL (60-115); Magnesium 2.2 mg/dL (1.6-2.6); Sodium 144 mmol/L (135-145); Total Protein 8.2 g/dL (6.5-8.0)
[2022-02-20 19:48] LABS: Glucose, Whole Blood 178 mg/dL (60-115)
[2022-02-20] MEDS: Gabapentin 400 MG CAPSULE 800 MG PO (20:40)
[2022-02-20] MEDS: Prazosin HCL 5 MG CAPSULE 15 MG PO (20:40)
[2022-02-20] MEDS: clonazePAM 0.5 MG TABLET PO (20:41)
[2022-02-20] MEDS: Acetaminophen 325 MG TABLET 650 MG PO (20:41)
[2022-02-20 20:46] VITALS: BP 131/89; PULSE 102; RESP 20; TEMP 36.6; O2SAT 97
[2022-02-20] MEDS: Albuterol Sulfate 90 MCG 8 GM INHALER 2 PUFF INHALE (22:23)
[2022-02-20] MEDS: HaloperidoL 5 MG TABLET PO (23:00)
--- NOTE | 2022-02-21 06:04 | PC.NURSE ---
Patient slept through the night, no distress observed/reported, patient exhibited behavior dys-regulation in the evening, PRN Klonopin 0.5 mg administered with night time medication, refused his Cymbalta reporting it doesn't help, medication discontinued per patient's request, patient reported having racing thought/provider notified/Haldol 5 mg PO administered with positive effect, N referral completed/confirmed, pending evaluation, will continue to monitor.
[2022-02-21 06:17] VITALS: BP 107/52; PULSE 67; RESP 16; TEMP 36.8; O2SAT 96
--- NOTE | 2022-02-21 07:30 | PC.NURSE ---
patient appears to remain asleep at present respirations are even and unlabored patient appears in no distress
[2022-02-21] MEDS: Gabapentin 400 MG CAPSULE 800 MG PO ×2 (08:15→14:47)
[2022-02-21] MEDS: Albuterol Sulfate 90 MCG 8 GM INHALER 2 PUFF INHALE ×2 (11:13→16:14)
--- NOTE | 2022-02-21 11:14 | PC.NURSE ---
client had requested something for pain earlier, spoke of his arm which client had restraint last night during elopement attempt. declined tylenol so t/w pursued order for ibuprofen. client then declined ibuprofen it doesnt work for me
[2022-02-21] MEDS: clonazePAM 0.5 MG TABLET PO (14:51)
[2022-02-21 18:55] VITALS: BP 130/61; PULSE 92; RESP 16; TEMP 36.6; O2SAT 97
--- NOTE | 2022-02-21 19:29 | MHC.CARE ---
CARE Team met with pt and recommends that pt be discharged to follow up with his outpatient providers. This plan is discussed and agreed upon by ED provider, NOEL Magallon, and CARE proposal coordinator, GLADIS Zimmerman.
== END 2022-02-21 19:39 | disposition home or self-care (01) ==
PROVIDERS: Physician Assistant; Emergency Provider Emergency Medicine; PCP Internal Medicine
DX: F32.A Depression, unspecified (principal); R45.851 Suicidal ideations; F41.9 Anxiety disorder, unspecified; F43.10 Post-traumatic stress disorder, unspecified; R06.02 Shortness of breath; Z20.822 Contact with and (suspected) exposure to COVID-19; E11.9 Type 2 diabetes mellitus without complications; F17.200 Nicotine dependence, unspecified, uncomplicated; F12.90 Cannabis use, unspecified, uncomplicated; Z79.899 Other long term (current) drug therapy
CPT/HCPCS: 36415; 71046; 80048; 80076; 80307; 82077; 82947; 83735; 85025; 87635; 93005; 96372; 99285; J2060

== ENCOUNTER → 2022-05-09 14:29 | Outpatient (BNVA) | payer OTHER, SELFPAY | PROVIDERS: PCP Internal Medicine; Visit Provider Hospitalist | DX: J18.9 Pneumonia, unspecified organism (principal); J44.9 Chronic obstructive pulmonary disease, unspecified; D86.9 Sarcoidosis, unspecified; F17.210 Nicotine dependence, cigarettes, uncomplicated | CPT/HCPCS: 99212 ==

== ENCOUNTER 2022-05-23 12:42 | Outpatient (REF) | payer OTHER, SELFPAY ==
--- NOTE | ~2022-05-23 | CT_ITS ---
EXAMINATION: CT CHEST WITHOUT CONTRAST CLINICAL INFORMATION: Pneumonia COMPARISON: Previous chest CT April 2021 and chest x-ray January 2022 TECHNIQUE: Multidetector volumetric CT imaging of the chest was done. Axial MIP volume rendering provided. Sagittal and coronal reformatted images were obtained. This CT examination was performed using dose optimization techniques as appropriate, variously including the following: *Automated exposure control *Adjustment of mA and/or kV according to patient size (this includes techniques or standardized protocols for targeted exams where dose is matched to indication/reason for exam; i.e. extremities or head) *Use of iterative reconstruction technique DLP: 199 mGy-cm FINDINGS: LUNGS: There is a small area of clustered peribronchial nodules and bronchial wall thickening in the right upper lobe laterally axial image 177. There is a small area of focal bronchiectasis and bronchial wall thickening in the posterior segment of the right upper lobe for example axial image 208 series 7. There is a small area of clustered peribronchial nodules or tree-in-bud appearance in the peripheral lateral left upper lobe axial image 144 series 7 and 333 series 7. These areas appear free of April 2021 exam. There is mild atelectasis focal bronchiectasis in the inferior segment of the lingula for example axial image 429 series 7 that is stable from 2020 exam. No new infiltrates are seen. Very mild paraseptal emphysema. No endobronchial or endotracheal lesion. MEDIASTINUM: Coronary artery calcification. Normal heart size. No pericardial effusion. No caliber thoracic aorta. Small mediastinal lymph nodes. No enlarged hilar or mediastinal lymph nodes. Stable small left thyroid nodule. PLEURA: There is no pleural effusion. No pleural mass or thickening. AXILLA: Small bilateral axillary lymph nodes. No enlarged lymph nodes or chest wall mass. UPPER ABDOMEN: Unremarkable. OSSEOUS STRUCTURES: Degenerative changes of the spine. CT/CT chest wo con IMPRESSION: Improved airways disease from April 2021 exam. Chronic atelectasis and bronchiectasis in the inferior segment of the lingula that is unchanged. Fleischner guidelines were followed.
== END 2022-05-23 12:43 | disposition home or self-care (01) ==
LOC: HO.CT 12:42
PROVIDERS: PCP Internal Medicine; Visit Provider Hospitalist
DX: J18.9 Pneumonia, unspecified organism (principal)
CPT/HCPCS: 71250

== ENCOUNTER 2022-06-15 02:32 | Inpatient (IN) | payer OTHER, SELFPAY ==
--- NOTE | ~2022-06-15 | XR_ITS ---
EXAMINATION: XR CHEST CLINICAL INFORMATION: Cough, shortness of breath COMPARISON: 05/23/2022 TECHNIQUE: Frontal view of the chest was obtained. FINDINGS: The lungs are well-aerated without focal consolidation. Trace atelectasis is suspected at the left base. No evidence of pneumothorax, pulmonary edema, or pleural effusions. The cardiomediastinal silhouette is unremarkable. No acute osseous findings. XR/XR chest 1V IMPRESSION: No acute cardiopulmonary findings.
[2022-06-15 02:34] VITALS: BP 146/75; PULSE 98; RESP 18; TEMP 36.4; O2SAT 96; BMI 29.6
--- NOTE | 2022-06-15 02:45 | ECG_ITS ---
Test Reason : DYSPNEA Blood Pressure : / mmHG Vent. Rate : 094 BPM Atrial Rate : 094 BPM P-R Int : 168 ms QRS Dur : 082 ms QT Int : 370 ms P-R-T Axes : 075 030 040 degrees QTc Int : 462 ms Normal sinus rhythm Normal ECG When compared with ECG of 20-FEB-2022 18:34, No significant change was found Referred By: Generic ED Physician Electronically Signed By:Kiko Valle
[2022-06-15 02:46] LABS: MANUAL DIFF FLAG NO
[2022-06-15 02:48] LABS: Basophils Percent Auto 0.5 % (0-2); Eosinophils Absolute Auto 0.1 X10*3/uL (0.0-0.4); Eosinophils Percent Auto 1.5 % (0-4); Hematocrit 35.1 % (42.0-52.0); Hemoglobin 12.6 g/dl (14.0-18.0); Imm Gran Abs Auto 0.03 X10*3/uL (0.00-0.03); Imm Gran Pct Auto 0.4 % (0.0-0.4); Lymphocytes Absolute Auto 2.1 X10*3/uL (1.2-4.9); Lymphocytes Percent Auto 25.7 % (20-40); Mean Corpuscular HGB Conc 35.9 g/dl (31.0-36.0); Mean Corpuscular Hemoglobin 31.6 pg (27.0-33.0); Mean Platelet Volume 11.3 fL (9.4-12.4); Monocytes Absolute Auto 0.6 X10*3/uL (0.1-1.2); Monocytes Percent Auto 6.7 % (2-11); Neutrophils Absolute Auto 5.4 x10*3/uL (2.0-8.3); Neutrophils Percent Auto 65.2 % (45-73); Platelet Count 144 X10*3/uL (160-400); Red Blood Count 3.99 X10*6/uL (4.60-5.80); Red Cell Distribution Width 12.6 % (11.0-16.0); White Blood Count 8.2 X10*3/uL (4.8-10.8)
[2022-06-15 03:03] LABS: COVID-19 Test Negative (Negative); IDNOW Serial# 16C4AD1C
[2022-06-15 03:09] LABS: Troponin-I High Sensitivity < 3.5 ng/L (<3.5-35.0)
[2022-06-15 03:11] LABS: Alanine Aminotransferase 24 U/L (0-40); Albumin Level 4.1 g/dL (3.5-5.0); Alkaline Phosphatase 146 U/L (39-117); Anion Gap 14 (12-20); Aspartate Amino Transferase 19 U/L (5-37); Bilirubin Total 1.3 mg/dL (0.0-1.0); Blood Urea Nitrogen 20 mg/dL (9-16); Calcium 8.4 mg/dL (8.4-10.2); Carbon Dioxide 25 mmol/L (22-29); Chloride 98 mmol/L (96-108); Creatinine Clr Calc Pharmacy 75.4; Estimated Glomerular Filt Rate 58; Glucose Random 338 mg/dL (60-115); Potassium 4.3 mmol/L (3.3-5.1); Sodium 133 mmol/L (135-145); Total Protein 7.1 g/dL (6.5-8.0)
--- NOTE | 2022-06-15 03:50 | PC.NURSE ---
Pt approached registration regarding need for rescue inhaler. pt advised by RN not to take home medications. RR even and unlabored. Speaking full sentences. Lung sounds remain clear. Pt moved to pivot 2
--- NOTE | 2022-06-15 04:14 | ED.SOB ---
HPI - SOB/Dyspnea General Chief Complaint: Dyspnea Stated Complaint: diff breathing Time Seen by Provider: 06/15/22 03:26 Source: patient Mode of arrival: ambulatory Limitations: no limitations History of Present Illness HPI Narrative: Patient comes to the emergency room complaining of chronic shortness of breath, requesting a breathing treatment. However, patient states that the real reason that he is here is because he is having visual hallucinations. Patient states that he has new medications for anxiety and depression. Patient states that something does not feel right in his mind, denies suicidal or homicidal ideation. However, patient states that he is seeing black shadows and is frightened him which is new for him. Patient requesting to be seen by [facility]. Related Data Home Medications Medication Instructions Recorded Confirmed acetaminophen 500 mg tablet 500 mg PO Q6-8H PRN fever 05/26/21 02/20/22 blood sugar diagnostic (FreeStyle #10 ea 12/15/21 Lite Strips) lancets 33 gauge (TRUEplus Lancets) #100 ea 12/15/21 clonazepam 0.5 mg tablet 1 tab PO DAILY PRN Anxiety 02/20/22 02/20/22 gabapentin 800 mg tablet 1 tab PO TID 02/20/22 02/20/22 prazosin 5 mg capsule 3 cap PO BEDTIME 02/20/22 02/20/22 Previous Rx's Medication Instructions Recorded nicotine 14 mg/24 hr daily 1 patch transdermal DAILY 28 days 06/21/21 transdermal patch (Nicoderm CQ) #28 ea naproxen 500 mg tablet (Naprosyn) 500 mg PO BID PRN pain #14 tabs 12/02/21 albuterol sulfate 2.5 mg/3 mL 2.5 mg (3 mL) inhalation Q4H PRN 04/28/22 (0.083 %) solution for nebulization shortness of breath or wheezing 30 days #180 mL albuterol sulfate 90 mcg/actuation 2 puff inhalation Q4-6H PRN 04/28/22 aerosol inhaler bronchospasm 30 days #8.5 grams fluticasone fur. 200 mcg-umeclid 1 inh inhalation DAILY 30 days #60 05/09/22 62.5 mcg-vilant 25 mcg ea inhalat.powder (Trelegy Ellipta) levofloxacin 500 mg tablet 500 mg PO DAILY 8 days #8 tabs 05/17/22 Allergies Allergy/AdvReac Type Severity Reaction Status Date / Time No Known Allergies Allergy Verified 05/09/22 15:01 Review of Systems Review of Systems: Constitutional : No Weight loss, No Fever, No Chills, No Night Sweats, No Fatigue, No Malaise ENT/Mouth : No Hearing loss, No Ear Pain, No Nasal Congestion, No Sinus Pain, No Hoarseness, No sore throat, No Rhinorrhea, No Swallowing Difficulty Eyes: No Eye Pain, No Swelling, No Redness, No Foreign Body, No Discharge, No Vision Changes Cardiovascular : No Chest Pain, No SOB, No Dyspnea on Exertion, No Orthopnea, No Edema, No Palpitations Respiratory : No Cough, No Sputum, No Wheezing, No Smoke Exposure, chronic dyspnea Gastrointestinal : No Nausea, No Vomiting, No Diarrhea, No Constipation, No abdominal Pain, No Hematochezia, No Melena Genitourinary : no irregular bleeding, No Dysuria, No Urinary Frequency, No Hematuria, No Urinary Incontinence, No Urgency, No Flank Pain, No Urinary Flow Changes, No Hesitancy Musculoskeletal : No joint pain, No Myalgias, No Joint Swelling Skin : No Skin Lesions, No rash Neuro : No Weakness, No Numbness, No Paresthesias, No Loss of Consciousness, No Dizziness, No Headache Psych : No Anxiety/Panic, No Depression, No SI/HI/AH/VH, No Social Issues, complaining of visual hallucinations Heme/Lymph: No Bruising, No Bleeding,No Lymphadenopathy Endocrine : No Polyuria, No Polydipsia, No Temperature Intolerance PMFSH Past Medical History Medical History Anxiety Asthma-COPD overlap syndrome Back pain Depression Diabetes GERD (gastroesophageal reflux disease) Gout Hyperhidrosis Neuropathy Pneumonitis PTSD (post-traumatic stress disorder) Sarcoidosis Surgical History History of bronchoscopy Hx of colonoscopy Family History Family History Father Myocardial infarction Mother No problems noted. Social History Social History Alcohol intake: current Alcohol intake frequency: does not drink Patient Tobacco Use Status: Current everyday Tobacco user Tobacco use type: Cigarette Cigarettes Per Day: 4 Years Smoked: 40 Second Hand Smoke Exposure: No Substance Use Type: Marijuana and Unknown Physical Exam Vital Signs: Vital Signs: Last Vital Signs Temp 97.6 F 06/15/22 02:34 Pulse 98 06/15/22 02:34 Resp 18 06/15/22 02:34 BP 146/75 H 06/15/22 02:34 Pulse Ox 96 06/15/22 02:34 O2 Del Method 06/15/22 02:34 BMI result Body Mass Index 29.6 Const: Other: Appearance: Alert. Oriented X3. No acute distress. Eyes: Pupils equal, round and reactive to light. ENT: Pharynx normal. Neck: Normal inspection. Neck supple. No lymph nodes noted. No crepitus CVS: Normal heart rate and rhythm. Pulses normal. Normal S1 and S2 Respiratory: No respiratory distress. Minimal wheezing bilaterally, good air movement Abdomen: Soft and nontender. No rigidity. No distention. Skin: Skin warm and dry. Normal skin color. Normal skin turgor. Extremities: No lower extremity edema. No Lacerations. No Rash Neuro: Oriented X 3. No motor deficit. No sensory deficit. Moving all extremities. No slurred speech. CN 2 through 12 grossly intact Psych: calm, cooperative, normal affect Course Course Course Narrative: Patient was provided with p.o. prednisone and a breathing treatment. Behavioral health network consult pending. Physician observation started at 04:15 MDM - SOB/Dyspnea Lab Data Result diagrams: 06/15/22 02:42 06/15/22 02:42 Labs: Lab Results 06/15/22 06/15/22 06/15/22 Range/Units 02:42 02:42 02:42 WBC 8.2 (4.8-10.8) X10*3/uL RBC 3.99 L D (4.60-5.80) X10*6/uL Hgb 12.6 L D (14.0-18.0) g/dl Hct 35.1 L D (42.0-52.0) % MCV 88.0 (80.0-98.0) fL MCH 31.6 (27.0-33.0) pg MCHC 35.9 (31.0-36.0) g/dl RDW 12.6 (11.0-16.0) % Plt Count 144 L D (160-400) X10*3/uL MPV 11.3 (9.4-12.4) fL Immature Gran % (Auto) 0.4 (0.0-0.4) % Neut % (Auto) 65.2 (45-73) % Lymph % (Auto) 25.7 (20-40) % [place] % (Auto) 6.7 (2-11) % Eos % (Auto) 1.5 (0-4) % Baso % (Auto) 0.5 (0-2) % Lymph # (Auto) 2.1 (1.2-4.9) X10*3/uL [place] # (Auto) 0.6 (0.1-1.2) X10*3/uL Eos # (Auto) 0.1 (0.0-0.4) X10*3/uL Baso # (Auto) 0.0 (0.0-0.2) X10*3/uL Abs Immat Gran (auto) 0.03 (0.00-0.03) X10*3/uL Absolute Neuts (auto) 5.4 (2.0-8.3) x10*3/uL Absolute Nucleated RBC 0.000 (0.0-0.012) X10*3/uL Nucleated RBC % (auto) 0.0 (0.0-0.2) /100WBC Sodium 133 L (135-145) mmol/L Potassium 4.3 (3.3-5.1) mmol/L Chloride 98 (96-108) mmol/L Carbon Dioxide 25 (22-29) mmol/L Anion Gap 14 (12-20) BUN 20 H D (9-16) mg/dL Creatinine 1.27 (0.5-1.4) mg/dL Estim Creat Clear Calc 75.4 Estimated GFR 58 Random Glucose 338 H D (60-115) mg/dL Calcium 8.4 D (8.4-10.2) mg/dL Total Bilirubin 1.3 H (0.0-1.0) mg/dL AST 19 (5-37) U/L ALT 24 (0-40) U/L Alkaline Phosphatase 146 H D (39-117) U/L Troponin I High Sens (<3.5-35.0) ng/L Total Protein 7.1 (6.5-8.0) g/dL Albumin 4.1 (3.5-5.0) g/dL COVID-19 (PRECIOUS) Negative (Negative) COVID-19 Clin Com See Note 06/15/22 Range/Units 02:42 WBC (4.8-10.8) X10*3/uL RBC (4.60-5.80) X10*6/uL Hgb (14.0-18.0) g/dl Hct (42.0-52.0) % MCV (80.0-98.0) fL MCH (27.0-33.0) pg MCHC (31.0-36.0) g/dl RDW (11.0-16.0) % Plt Count (160-400) X10*3/uL MPV (9.4-12.4) fL Immature Gran % (Auto) (0.0-0.4) % Neut % (Auto) (45-73) % Lymph % (Auto) (20-40) % [place] % (Auto) (2-11) % Eos % (Auto) (0-4) % Baso % (Auto) (0-2) % Lymph # (Auto) (1.2-4.9) X10*3/uL [place] # (Auto) (0.1-1.2) X10*3/uL Eos # (Auto) (0.0-0.4) X10*3/uL Baso # (Auto) (0.0-0.2) X10*3/uL Abs Immat Gran (auto) (0.00-0.03) X10*3/uL Absolute Neuts (auto) (2.0-8.3) x10*3/uL Absolute Nucleated RBC (0.0-0.012) X10*3/uL Nucleated RBC % (auto) (0.0-0.2) /100WBC Sodium (135-145) mmol/L Potassium (3.3-5.1) mmol/L Chloride (96-108) mmol/L Carbon Dioxide (22-29) mmol/L Anion Gap (12-20) BUN (9-16) mg/dL Creatinine (0.5-1.4) mg/dL Estim Creat Clear Calc Estimated GFR Random Glucose (60-115) mg/dL Calcium (8.4-10.2) mg/dL Total Bilirubin (0.0-1.0) mg/dL AST (5-37) U/L ALT (0-40) U/L Alkaline Phosphatase (39-117) U/L Troponin I High Sens < 3.5 (<3.5-35.0) ng/L Total Protein (6.5-8.0) g/dL Albumin (3.5-5.0) g/dL COVID-19 (PRECIOUS) (Negative) COVID-19 Clin Com Discharge Plan Discharge Clinical Impression: Chronic bronchitis with wheezing, Hallucination, visual Patient Disposition: Still a Patient Prescriptions: No Action albuterol sulfate 90 mcg/actuation HFA aerosol inhaler 2 puff inhalation Q4-6H PRN (Reason: bronchospasm) 30 Days Qty: 8.5 11RF albuterol sulfate 2.5 mg /3 mL (0.083 %) solution for nebulization 2.5 mg inhalation Q4H PRN (Reason: shortness of breath or wheezing) 30 Days Qty: 180 11RF levofloxacin 500 mg tablet 500 mg PO DAILY 8 Days Qty: 8 0RF naproxen [Naprosyn] 500 mg tablet 500 mg PO BID PRN (Reason: pain) Qty: 14 0RF clonazepam 0.5 mg tablet 1 tab PO DAILY PRN (Reason: Anxiety) prazosin 5 mg capsule 3 cap PO BEDTIME gabapentin 800 mg tablet 1 tab PO TID nicotine [Nicoderm CQ] 14 mg/24 hr patch 24 hour 1 patch transdermal DAILY 28 Days Qty: 28 3RF acetaminophen 500 mg tablet 500 mg PO Q6-8H PRN (Reason: fever) Trelegy Ellipta 200-62.5-25 mcg blister with device 1 inh inhalation DAILY 30 Days Qty: 60 12RF (DME) lancets [TRUEplus Lancets] 33 gauge misc See Rx Instructions Not Applicable BID Qty: 100 Rx Instructions: As directed (DME) FreeStyle Lite Strips Strip See Rx Instructions Not Applicable BID Qty: 10 Rx Instructions: As directed
[2022-06-15] MEDS: Albuterol Sulfate (0.083%) 2.5 MG/3 ML VIAL.NEB 5 MG INHALE (04:25)
[2022-06-15] MEDS: predniSONE 20 MG TABLET 60 MG PO (04:26)
--- NOTE | 2022-06-15 05:36 | PC.NURSE ---
smart sheet completed
--- NOTE | 2022-06-15 07:15 | ECG_ITS ---
Test Reason : MED CLEARANCE Blood Pressure : / mmHG Vent. Rate : 071 BPM Atrial Rate : 071 BPM P-R Int : 186 ms QRS Dur : 098 ms QT Int : 426 ms P-R-T Axes : 061 024 018 degrees QTc Int : 462 ms Normal sinus rhythm Normal ECG When compared with ECG of 15-JUN-2022 02:37, No significant change was found Referred By: Byron Davila Electronically Signed By:Kiko Valle
[2022-06-15 07:45] VITALS: BP 135/63; PULSE 80; RESP 14; TEMP 36.5; O2SAT 97
[2022-06-15 08:06] LABS: Amphetamine Screen Urine Not Detected (Not Detect); Barbiturates, Urine Not Detected (Not Detect); Benzodiazepines Screen Urine Not Detected (Not Detect); Cannabinoid Screen Urine POSITIVE (Not Detect); Cocaine Screen Urine Not Detected (Not Detect); Fentanyl, urine Not Detected (Not Detect); Opiate Screen Urine Not Detected (Not Detect); Phencyclidine Screen Urine Not Detected (Not Detect)
--- NOTE | 2022-06-15 09:21 | PC.NURSE ---
calm and cooperative, ate breakfast, drank coffeee, awaiting bhn, no complaints
--- NOTE | 2022-06-15 09:46 | PHA.MEDREC ---
Pharmacy Consult ? Medication Reconciliation Pharmacy has completed the medication reconciliation. Patient states they were taking olanzapine 2.5mg for 1 week and having visual hallucinations so he stopped it.
[2022-06-15] MEDS: LORazepam 1 MG TABLET 2 MG PO (13:56)
[2022-06-15] MEDS: Gabapentin 400 MG CAPSULE 800 MG PO ×2 (13:56→20:25)
[2022-06-15] MEDS: DULoxetine HCl 60 MG CAPSULE.DR PO ×2 (13:58→20:24)
[2022-06-15] MEDS: Prazosin HCL 5 MG CAPSULE PO (13:58)
[2022-06-15] MEDS: Albuterol Sulfate (0.083%) 2.5 MG/3 ML VIAL.NEB INHALE (15:30)
[2022-06-15 15:35] VITALS: PULSE 78; RESP 16; O2SAT 100
[2022-06-15 19:04] VITALS: BP 124/83; PULSE 90; RESP 16; TEMP 36.5; O2SAT 97; BMI 29.4
[2022-06-15] MEDS: Prazosin HCL 5 MG CAPSULE 10 MG PO (20:24)
[2022-06-15] MEDS: busPIRone HCl 5 MG TABLET 15 MG PO (20:25)
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
[2022-06-15 21:56] LABS: Glucose, Whole Blood 574 mg/dL (60-115)
[2022-06-15] MEDS: Insulin Lispro 100 UNIT/ML 3 ML VIAL 10 UNIT SUBCUT (22:23)
[2022-06-15 23:04] LABS: Anion Gap 17 (12-20); Blood Urea Nitrogen 22 mg/dL (9-16); Calcium 8.6 mg/dL (8.4-10.2); Carbon Dioxide 22 mmol/L (22-29); Chloride 94 mmol/L (96-108); Creatinine Clr Calc Pharmacy 55.5; Estimated Glomerular Filt Rate 41; Glucose Random 585 mg/dL (60-115); Potassium 4.6 mmol/L (3.3-5.1); Sodium 128 mmol/L (135-145)
--- NOTE | 2022-06-15 23:53 | PC.ADMIT ---
Pt is a 61years old male admitted on CV for command and Visual Hallucination. Pt is alert and oriented X3, VSS, Covid negative, Tox screen posive for THC. Speech is normal with regular rhythm tone and ramses. Pt denies SI/HI but endorsed command hallucination ordering him to go ahead with whatever he wants to do. Pt reports that he has not checked his blood sugar for the past 2years. POC is 574, Provider notified stat order for 10units humalog given. Pt denies depression and anxiety. Admission orders obtained.
[2022-06-16 00:18] LABS: Glucose, Whole Blood 246 mg/dL (60-115)
--- NOTE | 2022-06-16 00:27 | PM.EVENT ---
Event Note Date of Service: 06/16/22 Event Note: Diabetes/hyperglycemia: Patient fingerstick glucose noted to be 574; BMP showed hyponatremia to 128-pseudo hyponatremia; no anion gap; serum bicarb within normal limits. Patient not in DKA. Patient started on insulin sliding scale [id number] fingerstick glucose improved to 246. Patient encouraged oral fluid intake. Hemoglobin A1c pending Mild RAPHAEL: Patient baseline creatinine around 1.27; creatinine noted to be 1.7. Likely prerenal. Patient encouraged oral fluid intake. Will repeat BMP.
[2022-06-16 01:07] LABS: Anion Gap 14 (12-20); Blood Urea Nitrogen 22 mg/dL (9-16); Calcium 8.7 mg/dL (8.4-10.2); Carbon Dioxide 26 mmol/L (22-29); Chloride 97 mmol/L (96-108); Estimated Glomerular Filt Rate 57; Glucose Random 261 mg/dL (60-115); Sodium 133 mmol/L (135-145)
[2022-06-16 06:03] LABS: Glucose, Whole Blood 261 mg/dL (60-115)
[2022-06-16] MEDS: Fluticasone/Vilanterol 200/25 BLST.W.DEV 1 PUFF INHALE (08:20)
[2022-06-16] MEDS: busPIRone HCl 5 MG TABLET 15 MG PO ×2 (08:21→20:46)
[2022-06-16] MEDS: Gabapentin 400 MG CAPSULE 800 MG PO ×3 (08:21→20:46)
[2022-06-16] MEDS: DULoxetine HCl 60 MG CAPSULE.DR PO ×2 (08:21→20:47)
[2022-06-16] MEDS: Prazosin HCL 5 MG CAPSULE PO (08:22)
[2022-06-16] MEDS: Insulin Lispro 100 UNIT/ML 3 ML VIAL SUBCUT ×5 (08:25→20:45)
[2022-06-16 08:28] VITALS: BP 135/82; PULSE 72; RESP 18; TEMP 36.4; O2SAT 98
--- NOTE | 2022-06-16 09:13 | PC.NURSE ---
T/w followed up with pt who is currently declining offer of nicotine patch. Pt states I want to go cold turkey .
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
[2022-06-16 09:21] LABS: Estimated Average Glucose 203 mg/dL; Hemoglobin A1c % 8.7 %
[2022-06-16 09:24] LABS: Cholesterol 285 mg/dL; HDL Cholesterol 54 mg/dL; LDL Cholesterol Calculated 186 mg/dl; Magnesium 2.3 mg/dL (1.6-2.6); Triglycerides 227 mg/dL
[2022-06-16 09:48] LABS: Free T4 (Free Thyroxine) 0.88 ng/dL (0.71-1.85); Thyroid Stimulating Hormone 1.32 uIU/mL (0.32-4.0)
[2022-06-16] MEDS: Albuterol Sulfate (0.083%) 2.5 MG/3 ML VIAL.NEB INHALE (09:52)
[2022-06-16 10:01] VITALS: PULSE 82; RESP 18; O2SAT 98
[2022-06-16 11:15] LABS: Folate 8.9 ng/mL (> or = 4.0); Vitamin B12 257 pg/mL (200-900)
[2022-06-16 11:51] LABS: Glucose, Whole Blood 392 mg/dL (60-115)
[2022-06-16] MEDS: hydrOXYzine HCL 25 MG TABLET PO (11:58)
[2022-06-16] MEDS: clonazePAM 0.5 MG TABLET PO (14:58)
[2022-06-16 16:55] LABS: Glucose, Whole Blood 379 mg/dL (60-115)
[2022-06-16 17:43] LABS: Glucose, Whole Blood 388 mg/dL (60-115)
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
[2022-06-16 18:00] VITALS: BP 145/75; PULSE 85; TEMP 36.3; O2SAT 97
[2022-06-16 19:11] LABS: Glucose, Whole Blood 303 mg/dL (60-115)
[2022-06-16 20:41] LABS: Glucose, Whole Blood 266 mg/dL (60-115)
[2022-06-16] MEDS: Prazosin HCL 5 MG CAPSULE 10 MG PO (20:46)
--- NOTE | 2022-06-16 23:11 | HO.PSYCHPN ---
Subjective Subjective Date of Service: 06/16/22 Reason For Visit: Visual Perceptual alterations Subjective Notes: Gee Warning Interim History: Patient seen and discussed with team. Patient evaluated today and upon interview we discussed his elevated blood glucose, as it has been consistently in the 300 range. Says he used to take trulicity but his PCP said he didnt need it anymore. Says he has been contemplating his life since his diagnosis of cancer, sometimes im scared, says he needs a hug but that God hugs me. Says he has not noticed any SE on buspar but denies benefit at this point, I dont feel nothing from any medication, says he still has VH of shadows. Has passive SI with thoughts of drowning. Says his anxiety is not too high.? In the milieu, patient is safe and appropriate in behavior. Denies SI/SIB/HI upon inquiry. Denies irritability or assaultive ideation. Says he feels safe. Medication Compliance: Yes Side effects from medications: No Attending Groups: Intermittent Review of Systems Acute medical concerns: No Medical Review of Systems: unchanged Mental Status Exam Mental Status Exam Narrative: A&O. Large body stature, okay grooming, hospital attire. Good eye contact, attentive. No Tics or Tremors. No abnormal involuntary movements. Calm, cooperative, engaged. Non-pressured speech, spontaneous with regular rate and rhythm, normal volume and prosody. No prolonged speech latency or dysarthria. Mood is ?depressed,? affect is euthymic. Denies SI/SIB/HI upon inquiry. Endorses VH. Denies AH or delusional thought content. Thoughts are coherent, organized. No known cognitive or memory impairment. Insight/ Judgment fair and adequate. Diagnostics Vital Signs (24Hr): Vital Signs - 24 hr 06/16/22 08:28 06/16/22 10:01 06/16/22 18:00 Temperature 97.6 F 97.3 F Pulse Rate 72 82 85 Respiratory Rate 18 18 Blood Pressure 135/82 145/75 H Pulse Oximetry 98 97 Oxygen Delivery Method Room Air BMI result Body Mass Index 29.4 Labs Results: 06/15/22 02:42 06/16/22 00:42 Labs: Laboratory Results - last 48 hr 06/15/22 06/15/22 06/15/22 02:42 07:40 21:51 Sodium 133 L Potassium 4.3 Chloride 98 Carbon Dioxide 25 Anion Gap 14 BUN 20 H D Creatinine 1.27 Estim Creat Clear Calc 75.4 Estimated GFR 58 POC Glucose 574 H* Random Glucose 338 H D Estimat Average Glucose Hemoglobin A1c % Calcium 8.4 D Magnesium Total Bilirubin 1.3 H AST 19 ALT 24 Alkaline Phosphatase 146 H D Total Protein 7.1 Albumin 4.1 Triglycerides Cholesterol LDL Cholesterol, Calc HDL Cholesterol Vitamin B12 Folate TSH Free T4 Urine Opiates Screen Not Detected Urine Fentanyl Screen Not Detected Ur Barbiturates Screen Not Detected Ur Phencyclidine Scrn Not Detected Ur Amphetamines Screen Not Detected U Benzodiazepines Scrn Not Detected Urine Cocaine Screen Not Detected U Marijuana (THC) Screen POSITIVE H 06/15/22 06/16/22 06/16/22 22:35 00:12 00:42 Sodium 128 L 133 L Potassium 4.6 4.0 Chloride 94 L 97 Carbon Dioxide 22 26 Anion Gap 17 14 BUN 22 H 22 H Creatinine 1.72 H 1.29 Estim Creat Clear Calc 55.5 74.0 Estimated GFR 41 57 POC Glucose 246 H Random Glucose 585 H* 261 H D Estimat Average Glucose Hemoglobin A1c % Calcium 8.6 8.7 Magnesium Total Bilirubin AST ALT Alkaline Phosphatase Total Protein Albumin Triglycerides Cholesterol LDL Cholesterol, Calc HDL Cholesterol Vitamin B12 Folate TSH Free T4 Urine Opiates Screen Urine Fentanyl Screen Ur Barbiturates Screen Ur Phencyclidine Scrn Ur Amphetamines Screen U Benzodiazepines Scrn Urine Cocaine Screen U Marijuana (THC) Screen 06/16/22 06/16/22 06/16/22 05:59 08:14 08:14 Sodium Potassium Chloride Carbon Dioxide Anion Gap BUN Creatinine Estim Creat Clear Calc Estimated GFR POC Glucose 261 H Random Glucose Estimat Average Glucose 203 Hemoglobin A1c % 8.7 Calcium Magnesium Total Bilirubin AST ALT Alkaline Phosphatase Total Protein Albumin Triglycerides Cholesterol LDL Cholesterol, Calc HDL Cholesterol Vitamin B12 257 Folate 8.9 TSH Free T4 Urine Opiates Screen Urine Fentanyl Screen Ur Barbiturates Screen Ur Phencyclidine Scrn Ur Amphetamines Screen U Benzodiazepines Scrn Urine Cocaine Screen U Marijuana (THC) Screen 06/16/22 06/16/22 06/16/22 08:49 11:47 16:50 Sodium Potassium Chloride Carbon Dioxide Anion Gap BUN Creatinine Estim Creat Clear Calc Estimated GFR POC Glucose 392 H* 379 H* Random Glucose Estimat Average Glucose Hemoglobin A1c % Calcium Magnesium 2.3 Total Bilirubin AST ALT Alkaline Phosphatase Total Protein Albumin Triglycerides 227 Cholesterol 285 LDL Cholesterol, Calc 186 HDL Cholesterol 54 Vitamin B12 Folate TSH 1.32 Free T4 0.88 Urine Opiates Screen Urine Fentanyl Screen Ur Barbiturates Screen Ur Phencyclidine Scrn Ur Amphetamines Screen U Benzodiazepines Scrn Urine Cocaine Screen U Marijuana (THC) Screen 06/16/22 06/16/22 06/16/22 17:38 19:06 20:36 Sodium Potassium Chloride Carbon Dioxide Anion Gap BUN Creatinine Estim Creat Clear Calc Estimated GFR POC Glucose 388 H* 303 H 266 H Random Glucose Estimat Average Glucose Hemoglobin A1c % Calcium Magnesium Total Bilirubin AST ALT Alkaline Phosphatase Total Protein Albumin Triglycerides Cholesterol LDL Cholesterol, Calc HDL Cholesterol Vitamin B12 Folate TSH Free T4 Urine Opiates Screen Urine Fentanyl Screen Ur Barbiturates Screen Ur Phencyclidine Scrn Ur Amphetamines Screen U Benzodiazepines Scrn Urine Cocaine Screen U Marijuana (THC) Screen Imaging Radiology Impressions: ITS Impressions Chest X-Ray 06/15/22 02:52 IMPRESSION: No acute cardiopulmonary findings. Medications Medications Current Medications Acetaminophen (Acetaminophen 325 Mg Tablet) 650 mg PO Q6H PRN PRN Reason: Headache/Pain Mild Scale (1-3) Al Hydroxide/Mg Hydroxide (Magnesium Hydrox/Alum Hydrox 30 Ml Oral.Susp) 30 ml PO Q6H PRN PRN Reason: Heartburn/Nausea Al Hydroxide/Mg Hydroxide (Magnesium Hydrox/Alum Hydrox 30 Ml Oral.Susp) 30 ml PO Q6H PRN PRN Reason: Heartburn/Nausea Albuterol Sulfate (Albuterol Sulfate (0.083%) 2.5 Mg/3 Ml Vial.Neb) 2.5 mg INHALE Q4H PRN PRN Reason: shortness of breath or wheezing Last Admin: 06/16/22 09:52 Dose: 2.5 mg Albuterol Sulfate (Albuterol Sulfate 90 Mcg 8 Gm Inhaler) 2 puff INHALE Q4H PRN PRN Reason: bronchospasm Buspirone HCl (Buspirone Hcl 5 Mg Tablet) 15 mg PO TID [facility] Last Admin: 06/16/22 20:46 Dose: 15 mg Clonazepam (Clonazepam 0.5 Mg Tablet) 0.5 mg PO DAILY PRN PRN Reason: Anxiety Last Admin: 06/16/22 14:58 Dose: 0.5 mg Duloxetine HCl (Duloxetine Hcl 60 Mg Capsule.Dr) 60 mg PO BID [facility] Last Admin: 06/16/22 20:47 Dose: 60 mg Fluticasone/Vilanterol (Fluticasone/Vilanterol 200/25 Blst.W.Dev) 1 puff INHALE RDAILY WARREN Last Admin: 06/16/22 08:20 Dose: 1 puff Gabapentin (Gabapentin 400 Mg Capsule) 800 mg PO TID [facility] Last Admin: 06/16/22 20:46 Dose: 800 mg Hydroxyzine HCl (Hydroxyzine Hcl 25 Mg Tablet) 25 mg PO Q6H PRN PRN Reason: Anxiety Last Admin: 06/16/22 11:58 Dose: 25 mg Insulin Glargine (Insulin Glargine,Hum.Rec.Anlog 100 Unit/Ml 10 Ml Vial) 20 unit SUBCUT BEDTIME [facility] Last Admin: 06/16/22 21:12 Dose: Not Given Insulin Human Lispro (Insulin Lispro 100 Unit/Ml 3 Ml Vial) 0 unit SUBCUT QIDACHS [facility]; Protocol Last Admin: 06/16/22 20:45 Dose: 6 unit Magnesium Hydroxide (Milk Of Magnesia 30 Ml Oral.Susp) 30 ml PO DAILY PRN PRN Reason: Constipation Magnesium Hydroxide (Milk Of Magnesia 30 Ml Oral.Susp) 30 ml PO DAILY PRN PRN Reason: Constipation Prazosin HCl (Prazosin Hcl 5 Mg Capsule) 10 mg PO BEDTIME [facility]; Protocol Last Admin: 06/16/22 20:46 Dose: 10 mg Prazosin HCl (Prazosin Hcl 5 Mg Capsule) 5 mg PO DAILY [facility]; Protocol Last Admin: 06/16/22 08:22 Dose: 5 mg Tiotropium [place] (Tiotropium [place] 18 Mcg Cap.W.Dev) 1 puff INHALE RDAILY [facility] Last Admin: 06/16/22 08:20 Dose: 1 puff Trazodone HCl (Trazodone Hcl 50 Mg Tablet) 50 mg PO BEDTIME PRN PRN Reason: Insomnia Allergies Allergies Allergy/AdvReac Type Severity Reaction Status Date / Time No Known Allergies Allergy Verified 05/09/22 15:01 Assessment & Plan Assessment & Plan (1) Bipolar II disorder: Status: Acute Code(s): F31.81 - Bipolar II disorder (2) Post traumatic stress disorder (PTSD): Status: Acute Code(s): F43.10 - Post-traumatic stress disorder, unspecified Plan Dick is a 61 y.o. Male who carries a dx of PTSD and Bipolar II DO. He arrived to [facility] on 06/15/22 due to VH of a black shadow, says this is new for him. He reported he has a new medication for anxiety and depression, olanzapine 2.5 mg QHS, however denies benefit. Patient stated that ?something does not feel right? in his mind. He denies SI/SIB. Plan: 06/15: During pt's admission, random POC was 574. I discussed the case with the hospitalist, ordered BMP, which showed hyponatremia to 128, no anion gap, serum bicarb within normal limits. Patient not in DKA and hospitalist did not recommend transfer to [facility]. Patient started on insulin sliding scale regimen, was given 10 units of lispro. Pt was encouraged to hydrate. A follow-up fingerstick glucose improved to 246. Pt also noted to have mild RAPHAEL, baseline creatinine around 1.27; creatinine noted to be 1.7. Will repeat BMP. May re-consult hospitalist as needed, as pt is a diabetic and non-adherent with treatment. Would recommend a VNA upon discharge, as needs support at times keeping rx in order and knowing if he has refills or not. Continue prazosin 5 mg am and 10 mg hs, no orthostasis. Pt started on buspar 15 mg BID for anxiety. Pt supposedly trialed this in the past and had muscle spasms however pt does not remember this and is willing to re-trial. His sx of anxiety, PTSD appear to be exacerbated by situational stressors and he emphasized the need to get a break from his life by coming to the hospital. 06/16: Increase buspar to 15 mg TID to target anxiety, hyperarousal Q15 min safety checks, CV Monitor response to medications. Monitor for safety in the milieu. Discharge on stabilization. Patient seen. Chart reviewed. Discussed with team. Obtain collateral contact info as needed I spent minutes with the patient and/or on the patient floor today, greater than?50% of which was spent counseling/coordinating care. Patient educated on: medication risk/benefits Reason for contiued inpatient stay Substantial Risk for: harm to self and med/psych decompensation
[2022-06-17 04:48] LABS: Glucose, Whole Blood 260 mg/dL (60-115)
[2022-06-17] MEDS: Insulin Lispro 100 UNIT/ML 3 ML VIAL SUBCUT ×3 (06:58→21:49)
[2022-06-17 07:04] LABS: Glucose, Whole Blood 302 mg/dL (60-115)
[2022-06-17] MEDS: Fluticasone/Vilanterol 200/25 BLST.W.DEV 1 PUFF INHALE (09:10)
[2022-06-17] MEDS: Prazosin HCL 5 MG CAPSULE PO (09:10)
[2022-06-17] MEDS: busPIRone HCl 5 MG TABLET 15 MG PO ×3 (09:10→21:27)
[2022-06-17] MEDS: Gabapentin 400 MG CAPSULE 800 MG PO ×3 (09:11→21:26)
[2022-06-17] MEDS: DULoxetine HCl 60 MG CAPSULE.DR PO ×2 (09:11→21:26)
[2022-06-17 09:18] VITALS: BP 128/69; PULSE 77; RESP 20; TEMP 36.4; O2SAT 98
--- NOTE | 2022-06-17 09:44 | P.PNPSI_ITS ---
Subjective Subjective Date of Service: 06/17/22 Reason For Visit: Visual Perceptual alterations Subjective Notes: Conditional Voluntary Healthcare Proxy: No Guardianship: No Medical Problems Affecting Mental Status: No Interim History: Patient was seen and discussed in rounds today. Records and plans were reviewed. He has been visible. He is pleasant and cooperative. He has had some vague auditory or visual hallucinations. His blood sugars have been high had hospitalist consult is going to be requested. He also states that he has been eating a lot of meat lately and is beginning to have some symptoms of gout. Uric acid is ordered and also I will ask the hospitalist to address that too. Eating and sleeping adequately. No other complaints or changes. Ibuprofen 600 mg q.4 hours p.r.n. is ordered for now. Medication Compliance: Yes Side effects from medications: No Attending Groups: Yes Review of Systems Review of Systems Except for pain in his arms and legs. Yes all other systems are reviewed and are negative Mental Status Exam Mental Status Exam Narrative: In today's visit he is alert, oriented and pleasant. Normal speech. Good eye contact. Affect is appropriate and contained. No overt signs of psychosis but admits to some vague hallucinations. No delusions. No SI/HI. Cognitively intact. Judgment is intact Diagnostics Vital Signs (24Hr): Vital Signs - 24 hr 06/16/22 10:01 06/16/22 18:00 06/17/22 09:18 Temperature 97.3 F 97.6 F Pulse Rate 82 85 77 Respiratory Rate 18 20 Blood Pressure 145/75 H 128/69 Pulse Oximetry 97 98 Oxygen Delivery Method Room Air BMI result Body Mass Index 29.4 Labs Results: 06/15/22 02:42 06/16/22 00:42 Labs: Laboratory Results - last 48 hr 06/15/22 06/15/22 06/16/22 21:51 22:35 00:12 Sodium 128 L Potassium 4.6 Chloride 94 L Carbon Dioxide 22 Anion Gap 17 BUN 22 H Creatinine 1.72 H Estim Creat Clear Calc 55.5 Estimated GFR 41 POC Glucose 574 H* 246 H Random Glucose 585 H* Estimat Average Glucose Hemoglobin A1c % Calcium 8.6 Magnesium Triglycerides Cholesterol LDL Cholesterol, Calc HDL Cholesterol Vitamin B12 Folate TSH Free T4 06/16/22 06/16/22 06/16/22 00:42 05:59 08:14 Sodium 133 L Potassium 4.0 Chloride 97 Carbon Dioxide 26 Anion Gap 14 BUN 22 H Creatinine 1.29 Estim Creat Clear Calc 74.0 Estimated GFR 57 POC Glucose 261 H Random Glucose 261 H D Estimat Average Glucose 203 Hemoglobin A1c % 8.7 Calcium 8.7 Magnesium Triglycerides Cholesterol LDL Cholesterol, Calc HDL Cholesterol Vitamin B12 Folate TSH Free T4 06/16/22 06/16/22 06/16/22 08:14 08:49 11:47 Sodium Potassium Chloride Carbon Dioxide Anion Gap BUN Creatinine Estim Creat Clear Calc Estimated GFR POC Glucose 392 H* Random Glucose Estimat Average Glucose Hemoglobin A1c % Calcium Magnesium 2.3 Triglycerides 227 Cholesterol 285 LDL Cholesterol, Calc 186 HDL Cholesterol 54 Vitamin B12 257 Folate 8.9 TSH 1.32 Free T4 0.88 06/16/22 06/16/22 06/16/22 16:50 17:38 19:06 Sodium Potassium Chloride Carbon Dioxide Anion Gap BUN Creatinine Estim Creat Clear Calc Estimated GFR POC Glucose 379 H* 388 H* 303 H Random Glucose Estimat Average Glucose Hemoglobin A1c % Calcium Magnesium Triglycerides Cholesterol LDL Cholesterol, Calc HDL Cholesterol Vitamin B12 Folate TSH Free T4 06/16/22 06/17/22 06/17/22 20:36 04:40 06:51 Sodium Potassium Chloride Carbon Dioxide Anion Gap BUN Creatinine Estim Creat Clear Calc Estimated GFR POC Glucose 266 H 260 H 302 H Random Glucose Estimat Average Glucose Hemoglobin A1c % Calcium Magnesium Triglycerides Cholesterol LDL Cholesterol, Calc HDL Cholesterol Vitamin B12 Folate TSH Free T4 Imaging Radiology Impressions: ITS Impressions Chest X-Ray 06/15/22 02:52 IMPRESSION: No acute cardiopulmonary findings. Medications Medications Current Medications Acetaminophen (Acetaminophen 325 Mg Tablet) 650 mg PO Q6H PRN PRN Reason: Headache/Pain Mild Scale (1-3) Al Hydroxide/Mg Hydroxide (Magnesium Hydrox/Alum Hydrox 30 Ml Oral.Susp) 30 ml PO Q6H PRN PRN Reason: Heartburn/Nausea Al Hydroxide/Mg Hydroxide (Magnesium Hydrox/Alum Hydrox 30 Ml Oral.Susp) 30 ml PO Q6H PRN PRN Reason: Heartburn/Nausea Albuterol Sulfate (Albuterol Sulfate (0.083%) 2.5 Mg/3 Ml Vial.Neb) 2.5 mg INHALE Q4H PRN PRN Reason: shortness of breath or wheezing Last Admin: 06/16/22 09:52 Dose: 2.5 mg Albuterol Sulfate (Albuterol Sulfate 90 Mcg 8 Gm Inhaler) 2 puff INHALE Q4H PRN PRN Reason: bronchospasm Buspirone HCl (Buspirone Hcl 5 Mg Tablet) 15 mg PO TID [facility] Last Admin: 06/17/22 09:10 Dose: 15 mg Clonazepam (Clonazepam 0.5 Mg Tablet) 0.5 mg PO DAILY PRN PRN Reason: Anxiety Last Admin: 06/16/22 14:58 Dose: 0.5 mg Duloxetine HCl (Duloxetine Hcl 60 Mg Capsule.Dr) 60 mg PO BID [facility] Last Admin: 06/17/22 09:11 Dose: 60 mg Fluticasone/Vilanterol (Fluticasone/Vilanterol 200/25 Blst.W.Dev) 1 puff INHALE RDAILY [facility] Last Admin: 06/17/22 09:10 Dose: 1 puff Gabapentin (Gabapentin 400 Mg Capsule) 800 mg PO TID [facility] Last Admin: 06/17/22 09:11 Dose: 800 mg Hydroxyzine HCl (Hydroxyzine Hcl 25 Mg Tablet) 25 mg PO Q6H PRN PRN Reason: Anxiety Last Admin: 06/16/22 11:58 Dose: 25 mg Ibuprofen (Ibuprofen 600 Mg Tablet) 600 mg PO Q4H PRN PRN Reason: Pain, Mild (Pain Scale 1-3) Insulin Glargine (Insulin Glargine,Hum.Rec.Anlog 100 Unit/Ml 10 Ml Vial) 20 unit SUBCUT BEDTIME [facility] Last Admin: 06/16/22 21:12 Dose: Not Given Insulin Human Lispro (Insulin Lispro 100 Unit/Ml 3 Ml Vial) 0 unit SUBCUT QIDACHS [facility]; Protocol Last Admin: 06/17/22 06:58 Dose: 8 unit Magnesium Hydroxide (Milk Of Magnesia 30 Ml Oral.Susp) 30 ml PO DAILY PRN PRN Reason: Constipation Magnesium Hydroxide (Milk Of Magnesia 30 Ml Oral.Susp) 30 ml PO DAILY PRN PRN Reason: Constipation Prazosin HCl (Prazosin Hcl 5 Mg Capsule) 10 mg PO BEDTIME [facility]; Protocol Last Admin: 06/16/22 20:46 Dose: 10 mg Prazosin HCl (Prazosin Hcl 5 Mg Capsule) 5 mg PO DAILY [facility]; Protocol Last Admin: 06/17/22 09:10 Dose: 5 mg Tiotropium [place] (Tiotropium [place] 18 Mcg Cap.W.Dev) 1 puff INHALE MOISÉS [facility]EL[facility] Last Admin: 06/17/22 09:10 Dose: 1 puff Trazodone HCl (Trazodone Hcl 50 Mg Tablet) 50 mg PO BEDTIME PRN PRN Reason: Insomnia Allergies Allergies Allergy/AdvReac Type Severity Reaction Status Date / Time No Known Allergies Allergy Verified 05/09/22 15:01 Assessment & Plan Assessment & Plan (1) Bipolar II disorder: Status: Acute Code(s): F31.81 - Bipolar II disorder (2) Post traumatic stress disorder (PTSD): Status: Acute Code(s): F43.10 - Post-traumatic stress disorder, unspecified Plan Dick is a 61 y.o. Male who carries a dx of PTSD and Bipolar II DO. [place] [facility] [place] due to VH of a black shadow, says this is new for him. He reported he has a new medication for anxiety and depression, olanzapine 2.5 mg QHS, however denies benefit. Patient stated that ?something does not feel right? in his mind. He denies SI/SIB. Plan: 06/15: During pt's admission, random POC was 574. I discussed the case with the hospitalist, ordered BMP, which showed hyponatremia to 128, no anion gap, serum bicarb within normal limits. Patient not in DKA and hospitalist did not recommend transfer to [facility]. Patient started on insulin sliding scale regimen, was given 10 units of lispro. Pt was encouraged to hydrate. A follow-up fingerstick glucose improved to 246. Pt also noted to have mild RAPHAEL, baseline creatinine around 1.27; creatinine noted to be 1.7. Will repeat BMP. May re-consult hospitalist as needed, as pt is a diabetic and non-adherent with treatment. Would recommend a VNA upon discharge, as needs support at times keeping rx in order and knowing if he has refills or not. Continue prazosin 5 mg am and 10 mg hs, no orthostasis. Pt started on buspar 15 mg BID for anxiety. Pt supposedly trialed this in the past and had muscle spasms however pt does not remember this and is willing to re-trial. His sx of anxiety, PTSD appear to be exacerbated by situational stressors and he emphasized the need to get a break from his life by coming to the hospital. 06/16: Increase buspar to 15 mg TID to target anxiety, hyperarousal 06/17: Continue current regimen and plans. Ibuprofen is ordered. Hospitalist consult requested for management of his diabetes and possible gout Q15 min safety checks, CV Monitor response to medications. Monitor for safety in the milieu. Discharge on stabilization. Patient seen. Chart reviewed. Discussed with team. Obtain collateral contact info as needed I spent minutes with the patient and/or on the patient floor today, greater than?50% of which was spent counseling/coordinating care. Reason for contiued inpatient stay Substantial Risk for: med/psych decompensation
[2022-06-17] MEDS: Ibuprofen 600 MG TABLET PO ×2 (10:24→21:37)
[2022-06-17 11:45] LABS: Uric Acid 6.9 mg/dL (3.4-7.0)
[2022-06-17 12:14] LABS: Glucose, Whole Blood 90 mg/dL (60-115)
[2022-06-17 16:52] LABS: Glucose, Whole Blood 407 mg/dL (60-115)
[2022-06-17] MEDS: hydrOXYzine HCL 25 MG TABLET PO ×2 (16:58→20:23)
[2022-06-17 17:01] VITALS: BP 134/77; PULSE 89; RESP 18; TEMP 36.2; O2SAT 98
[2022-06-17 17:46] LABS: Glucose, Whole Blood 330 mg/dL (60-115)
[2022-06-17] MEDS: Prazosin HCL 5 MG CAPSULE 10 MG PO (21:26)
[2022-06-17 21:27] VITALS: BP 153/78; PULSE 75
[2022-06-17] MEDS: Albuterol Sulfate 90 MCG 8 GM INHALER 2 PUFF INHALE (21:43)
[2022-06-17 21:46] LABS: Glucose, Whole Blood 256 mg/dL (60-115)
[2022-06-17] MEDS: Insulin Glargine,Hum.rec.anlog 100 UNIT/ML 10 ML VIAL 20 UNIT SUBCUT (21:48)
[2022-06-18] MEDS: traZODone HCL 50 MG TABLET PO (02:14)
[2022-06-18] MEDS: hydrOXYzine HCL 25 MG TABLET PO ×2 (02:14→21:37)
[2022-06-18 06:00] VITALS: BP 150/82; PULSE 80; RESP 18; TEMP 36.1; O2SAT 96
[2022-06-18] MEDS: Insulin Lispro 100 UNIT/ML 3 ML VIAL SUBCUT ×3 (06:48→21:38)
--- NOTE | 2022-06-18 08:12 | HO.PSYCHPN ---
Subjective Subjective Date of Service: 06/18/22 Reason For Visit: Visual Perceptual alterations Subjective Notes: Conditional Voluntary Healthcare Proxy: No Guardianship: No Medical Problems Affecting Mental Status: No Interim History: Patient was seen and discussed in rounds today. Records and plans were reviewed. He has been stable and is doing a little better but is having a lot of nightmares at night for which the prazosin has not been that helpful. I will increase his trazodone to 100 mg. His uric acid from yesterday was 6.9. His blood sugars continue to fluctuate but her little better. He has not been seen for the hospitalist consult. Eating adequately. No SI. He is visible and at times having a hard time with the unit being very high strong on loud. No other changes were made today Medication Compliance: Yes Side effects from medications: No Attending Groups: Yes Review of Systems Review of Systems Yes all other systems are reviewed and are negative Diagnostics Vital Signs (24Hr): Vital Signs - 24 hr 06/17/22 09:18 06/17/22 17:01 06/17/22 21:27 Temperature 97.6 F 97.1 F Pulse Rate 77 89 75 Respiratory Rate 20 18 Blood Pressure 128/69 134/77 153/78 H Pulse Oximetry 98 98 Oxygen Delivery Method Room Air Room Air BMI result Body Mass Index 29.4 Labs Results: 06/15/22 02:42 06/16/22 00:42 Labs: Laboratory Results - last 48 hr 06/16/22 06/16/22 06/16/22 08:14 08:14 08:49 POC Glucose Estimat Average Glucose 203 Hemoglobin A1c % 8.7 Uric Acid Magnesium 2.3 Triglycerides 227 Cholesterol 285 LDL Cholesterol, Calc 186 HDL Cholesterol 54 Vitamin B12 257 Folate 8.9 TSH 1.32 Free T4 0.88 06/16/22 06/16/22 06/16/22 11:47 16:50 17:38 POC Glucose 392 H* 379 H* 388 H* Estimat Average Glucose Hemoglobin A1c % Uric Acid Magnesium Triglycerides Cholesterol LDL Cholesterol, Calc HDL Cholesterol Vitamin B12 Folate TSH Free T4 06/16/22 06/16/22 06/17/22 19:06 20:36 04:40 POC Glucose 303 H 266 H 260 H Estimat Average Glucose Hemoglobin A1c % Uric Acid Magnesium Triglycerides Cholesterol LDL Cholesterol, Calc HDL Cholesterol Vitamin B12 Folate TSH Free T4 06/17/22 06/17/2222 06:51 11:19 12:09 POC Glucose 302 H 90 Estimat Average Glucose Hemoglobin A1c % Uric Acid 6.9 Magnesium Triglycerides Cholesterol LDL Cholesterol, Calc HDL Cholesterol Vitamin B12 Folate TSH Free T4 06/17/22 06/17/22 06/17/22 16:46 17:41 21:42 POC Glucose 407 H* 330 H 256 H Estimat Average Glucose Hemoglobin A1c % Uric Acid Magnesium Triglycerides Cholesterol LDL Cholesterol, Calc HDL Cholesterol Vitamin B12 Folate TSH Free T4 Imaging Radiology Impressions: ITS Impressions Chest X-Ray 06/15/22 02:52 IMPRESSION: No acute cardiopulmonary findings. Medications Medications Current Medications Acetaminophen (Acetaminophen 325 Mg Tablet) 650 mg PO Q6H PRN PRN Reason: Headache/Pain Mild Scale (1-3) Al Hydroxide/Mg Hydroxide (Magnesium Hydrox/Alum Hydrox 30 Ml Oral.Susp) 30 ml PO Q6H PRN PRN Reason: Heartburn/Nausea Al Hydroxide/Mg Hydroxide (Magnesium Hydrox/Alum Hydrox 30 Ml Oral.Susp) 30 ml PO Q6H PRN PRN Reason: Heartburn/Nausea Albuterol Sulfate (Albuterol Sulfate (0.083%) 2.5 Mg/3 Ml Vial.Neb) 2.5 mg INHALE Q4H PRN PRN Reason: shortness of breath or wheezing Last Admin: 06/16/22 09:52 Dose: 2.5 mg Albuterol Sulfate (Albuterol Sulfate 90 Mcg 8 Gm Inhaler) 2 puff INHALE Q4H PRN PRN Reason: bronchospasm Last Admin: 06/17/22 21:43 Dose: 2 puff Buspirone HCl (Buspirone Hcl 5 Mg Tablet) 15 mg PO TID [facility] Last Admin: 06/17/22 21:27 Dose: 15 mg Clonazepam (Clonazepam 0.5 Mg Tablet) 0.5 mg PO DAILY PRN PRN Reason: Anxiety Last Admin: 06/16/22 14:58 Dose: 0.5 mg Duloxetine HCl (Duloxetine Hcl 60 Mg Capsule.Dr) 60 mg PO BID [facility] Last Admin: 06/17/22 21:26 Dose: 60 mg Fluticasone/Vilanterol (Fluticasone/Vilanterol 200/25 Blst.W.Dev) 1 puff INHALE RDAILY [facility] Last Admin: 06/17/22 09:10 Dose: 1 puff Gabapentin (Gabapentin 400 Mg Capsule) 800 mg PO TID [facility] Last Admin: 06/17/22 21:26 Dose: 800 mg Hydroxyzine HCl (Hydroxyzine Hcl 25 Mg Tablet) 25 mg PO Q6H PRN PRN Reason: Anxiety Last Admin: 06/18/22 02:14 Dose: 25 mg Ibuprofen (Ibuprofen 600 Mg Tablet) 600 mg PO Q4H PRN PRN Reason: Pain, Mild (Pain Scale 1-3) Last Admin: 06/17/22 21:37 Dose: 600 mg Insulin Glargine (Insulin Glargine,Hum.Rec.Anlog 100 Unit/Ml 10 Ml Vial) 20 unit SUBCUT BEDTIME [facility] Last Admin: 06/17/22 21:48 Dose: 20 unit Insulin Human Lispro (Insulin Lispro 100 Unit/Ml 3 Ml Vial) 0 unit SUBCUT QIDACHS [facility]; Protocol Last Admin: 06/18/22 06:48 Dose: 8 unit Magnesium Hydroxide (Milk Of Magnesia 30 Ml Oral.Susp) 30 ml PO DAILY PRN PRN Reason: Constipation Magnesium Hydroxide (Milk Of Magnesia 30 Ml Oral.Susp) 30 ml PO DAILY PRN PRN Reason: Constipation Prazosin HCl (Prazosin Hcl 5 Mg Capsule) 10 mg PO BEDTIME [facility]; Protocol Last Admin: 06/17/22 21:26 Dose: 10 mg Prazosin HCl (Prazosin Hcl 5 Mg Capsule) 5 mg PO DAILY [facility]; Protocol Last Admin: 06/17/22 09:10 Dose: 5 mg Tiotropium [place] (Tiotropium [place] 18 Mcg Cap.W.Dev) 1 puff INHALE RDAILY [facility] Last Admin: 06/17/22 09:10 Dose: 1 puff Trazodone HCl (Trazodone Hcl 100 Mg Tablet) 100 mg PO BEDTIME PRN PRN Reason: Insomnia Allergies Allergies Allergy/AdvReac Type Severity Reaction Status Date / Time No Known Allergies Allergy Verified 05/09/22 15:01 Assessment & Plan Assessment & Plan (1) Bipolar II disorder: Status: Acute Code(s): F31.81 - Bipolar II disorder (2) Post traumatic stress disorder (PTSD): Status: Acute Code(s): F43.10 - Post-traumatic stress disorder, unspecified Plan Dick is a 61 y.o. Male who carries a dx of PTSD and Bipolar II DO. He arrived to [facility] on 06/15/22 due to VH of a black shadow, says this is new for him. He reported he has a new medication for anxiety and depression, olanzapine 2.5 mg QHS, however denies benefit. Patient stated that ?something does not feel right? in his mind. He denies SI/SIB. Plan: 06/15: During pt's admission, random POC was 574. I discussed the case with the hospitalist, ordered BMP, which showed hyponatremia to 128, no anion gap, serum bicarb within normal limits. Patient not in DKA and hospitalist did [place] [facility] [place] Patient started on insulin sliding scale regimen, was given 10 units of lispro. Pt was encouraged to hydrate. A follow-up fingerstick glucose improved to 246. Pt also noted to have mild RAPHAEL, baseline creatinine around 1.27; creatinine noted to be 1.7. Will repeat BMP. May re-consult hospitalist as needed, as pt is a diabetic and non-adherent with treatment. Would recommend a VNA upon discharge, as needs support at times keeping rx in order and knowing if he has refills or not. Continue prazosin 5 mg am and 10 mg hs, no orthostasis. Pt started on buspar 15 mg BID for anxiety. Pt supposedly trialed this in the past and had muscle spasms however pt does not remember this and is willing to re-trial. His sx of anxiety, PTSD appear to be exacerbated by situational stressors and he emphasized the need to get a break from his life by coming to the hospital. 06/16: Increase buspar to 15 mg TID to target anxiety, hyperarousal 06/17: Continue current regimen and plans. Ibuprofen is ordered. Hospitalist consult requested for management of his diabetes and possible gout 06/18: Continue current regimen and plans with slight increase of trazodone Q15 min safety checks, CV Monitor response to medications. Monitor for safety in the milieu. Discharge on stabilization. Patient seen. Chart reviewed. Discussed with team. Obtain collateral contact info as needed I spent minutes with the patient and/or on the patient floor today, greater than?50% of which was spent counseling/coordinating care. Patient educated on: medication risk/benefits Reason for contiued inpatient stay Substantial Risk for: med/psych decompensation
[2022-06-18] MEDS: DULoxetine HCl 60 MG CAPSULE.DR PO ×2 (09:05→21:37)
[2022-06-18] MEDS: Fluticasone/Vilanterol 200/25 BLST.W.DEV 1 PUFF INHALE (09:06)
[2022-06-18] MEDS: busPIRone HCl 5 MG TABLET 15 MG PO ×3 (09:07→21:37)
[2022-06-18] MEDS: Gabapentin 400 MG CAPSULE 800 MG PO ×3 (09:07→21:36)
[2022-06-18] MEDS: clonazePAM 0.5 MG TABLET PO (09:09)
[2022-06-18] MEDS: Prazosin HCL 5 MG CAPSULE PO (09:09)
[2022-06-18 16:35] VITALS: BP 140/70; PULSE 98; RESP 20; TEMP 36.1; O2SAT 97
[2022-06-18] MEDS: Albuterol Sulfate 90 MCG 8 GM INHALER 2 PUFF INHALE (18:28)
[2022-06-18 21:14] VITALS: BP 168/79; PULSE 80; TEMP 36.3
[2022-06-18] MEDS: Prazosin HCL 5 MG CAPSULE 10 MG PO (21:35)
[2022-06-18] MEDS: traZODone HCL 100 MG TABLET PO (21:37)
[2022-06-18] MEDS: Insulin Glargine,Hum.rec.anlog 100 UNIT/ML 10 ML VIAL 20 UNIT SUBCUT (21:37)
--- NOTE | 2022-06-18 22:46 | PC.NURSE ---
POC not being recorded today, apparent issue/problem with pt account number and calibration of machine (??). pt POC are; 0800: 305, 1130: 147, 1630: 258, HS: 284. Pt administered insulin according to sliding scale (insulin lispro).
[2022-06-19 06:00] VITALS: BP 138/74; PULSE 84; RESP 18; O2SAT 97
[2022-06-19 06:34] LABS: Glucose, Whole Blood 307 mg/dL (60-115)
[2022-06-19] MEDS: Insulin Lispro 100 UNIT/ML 3 ML VIAL SUBCUT ×4 (06:38→21:09)
[2022-06-19] MEDS: hydrOXYzine HCL 25 MG TABLET PO ×2 (06:45→16:13)
[2022-06-19] MEDS: Fluticasone/Vilanterol 200/25 BLST.W.DEV 1 PUFF INHALE (08:26)
[2022-06-19] MEDS: Gabapentin 400 MG CAPSULE 800 MG PO ×3 (08:27→21:12)
[2022-06-19] MEDS: busPIRone HCl 5 MG TABLET 15 MG PO ×2 (08:27→14:25)
[2022-06-19] MEDS: DULoxetine HCl 60 MG CAPSULE.DR PO ×2 (08:27→21:13)
[2022-06-19] MEDS: Prazosin HCL 5 MG CAPSULE PO (08:27)
[2022-06-19] MEDS: Ibuprofen 600 MG TABLET PO ×2 (09:36→16:12)
[2022-06-19] MEDS: HaloperidoL 5 MG TABLET PO (09:37)
[2022-06-19 12:25] LABS: Glucose, Whole Blood 187 mg/dL (60-115)
[2022-06-19 16:43] LABS: Glucose, Whole Blood 290 mg/dL (60-115)
--- NOTE | 2022-06-19 16:49 | P.PNPSI_ITS ---
Subjective Subjective Date of Service: 06/19/22 Reason For Visit: Visual Perceptual alterations Subjective Notes: Gee Warning Healthcare Proxy: No Guardianship: No Medical Problems Affecting Mental Status: No Interim History: Patient seen and discussed with team. Patient evaluated today and upon interview he reports he has felt aggravated and agitated intermittently due to intrusive peers in the milieu. Currently says im relaxed. Says the medication is working. Wants to focus on his own life s/p lung cancer diagnosis. Sleep is not good, has nightmares, wakes up jumping. Continues to endorse VH of shadows. Discussed discontinuing trazodone due to possibility of nightmares.?Discussed increasing klonopin during inpatient stay to target poor sleep and anxiety in context of situational stressors. In the milieu, patient is safe and appropriate in behavior. Denies SI/SIB/HI upon inquiry. Says he feels safe. Medication Compliance: Yes Side effects from medications: No Attending Groups: Intermittent Review of Systems Acute medical concerns: No Medical Review of Systems: unchanged Mental Status Exam Mental Status Exam Narrative: A&O. Large body stature, okay grooming, casual attire. Good eye contact, attentive. No Tics or Tremors. No abnormal involuntary movements. Calm, cooperative, engaged. Non-pressured speech, spontaneous with regular rate and rhythm, normal volume and prosody. No prolonged speech latency or dysarthria. Mood is ?depressed,? affect is euthymic. Denies SI/SIB/HI upon inquiry. Endorses VH. Denies AH or delusional thought content. Thoughts are coherent, organized. No known cognitive or memory impairment. Insight/ Judgment fair and adequate. Diagnostics Vital Signs (24Hr): Vital Signs - 24 hr 06/18/22 21:14 06/19/22 06:00 Temperature 97.3 F Pulse Rate 80 84 Respiratory Rate 18 Blood Pressure 168/79 H 138/74 Pulse Oximetry 97 Oxygen Delivery Method Room Air BMI result Body Mass Index 29.4 Labs Results: 06/15/22 02:42 06/16/22 00:42 Labs: Laboratory Results - last 48 hr 06/17/22 06/17/22 06/17/22 16:46 17:41 21:42 POC Glucose 407 H* 330 H 256 H 06/19/22 06/19/22 06/19/22 06:30 12:08 16:39 POC Glucose 307 H 187 H 290 H Imaging Radiology Impressions: ITS Impressions Chest X-Ray 06/15/22 02:52 IMPRESSION: No acute cardiopulmonary findings. Medications Medications Current Medications Acetaminophen (Acetaminophen 325 Mg Tablet) 650 mg PO Q6H PRN PRN Reason: Headache/Pain Mild Scale (1-3) Al Hydroxide/Mg Hydroxide (Magnesium Hydrox/Alum Hydrox 30 Ml Oral.Susp) 30 ml PO Q6H PRN PRN Reason: Heartburn/Nausea Al Hydroxide/Mg Hydroxide (Magnesium Hydrox/Alum Hydrox 30 Ml Oral.Susp) 30 ml PO Q6H PRN PRN Reason: Heartburn/Nausea Albuterol Sulfate (Albuterol Sulfate (0.083%) 2.5 Mg/3 Ml Vial.Neb) 2.5 mg INHALE Q4H PRN PRN Reason: shortness of breath or wheezing Last Admin: 06/16/22 09:52 Dose: 2.5 mg Albuterol Sulfate (Albuterol Sulfate 90 Mcg 8 Gm Inhaler) 2 puff INHALE Q4H PRN PRN Reason: bronchospasm Last Admin: 06/18/22 18:28 Dose: 2 puff Benztropine Mesylate (Benztropine Mesylate 1 Mg Tablet) 1 mg PO TID PRN PRN Reason: eps associated with haldol prn Buspirone HCl (Buspirone Hcl 5 Mg Tablet) 15 mg PO TID [facility] Last Admin: 06/19/22 14:25 Dose: 15 mg Clonazepam (Clonazepam 0.5 Mg Tablet) 0.5 mg PO DAILY PRN PRN Reason: Anxiety Last Admin: 06/18/22 09:09 Dose: 0.5 mg Duloxetine HCl (Duloxetine Hcl 60 Mg Capsule.Dr) 60 mg PO BID [facility] Last Admin: 06/19/22 08:27 Dose: 60 mg Fluticasone/Vilanterol (Fluticasone/Vilanterol 200/25 Blst.W.Dev) 1 puff INHALE RDAILY [facility] Last Admin: 06/19/22 08:26 Dose: 1 puff Gabapentin (Gabapentin 400 Mg Capsule) 800 mg PO TID [facility] Last Admin: 06/19/22 14:25 Dose: 800 mg Haloperidol (Haloperidol 5 Mg Tablet) 5 mg PO TID PRN PRN Reason: agitation, psychosis Last Admin: 06/19/22 09:37 Dose: 5 mg Hydroxyzine HCl (Hydroxyzine Hcl 25 Mg Tablet) 25 mg PO Q6H PRN PRN Reason: Anxiety Last Admin: 06/19/22 16:13 Dose: 25 mg Ibuprofen (Ibuprofen 600 Mg Tablet) 600 mg PO Q4H PRN PRN Reason: Pain, Mild (Pain Scale 1-3) Last Admin: 06/19/22 16:12 Dose: 600 mg Insulin Glargine (Insulin Glargine,Hum.Rec.Anlog 100 Unit/Ml 10 Ml Vial) 20 unit SUBCUT BEDTIME [facility] Last Admin: 06/18/22 21:37 Dose: 20 unit Insulin Human Lispro (Insulin Lispro 100 Unit/Ml 3 Ml Vial) 0 unit SUBCUT QIDACHS [facility]; Protocol Last Admin: 06/19/22 13:00 Dose: 2 unit Magnesium Hydroxide (Milk Of Magnesia 30 Ml Oral.Susp) 30 ml PO DAILY PRN PRN Reason: Constipation Magnesium Hydroxide (Milk Of Magnesia 30 Ml Oral.Susp) 30 ml PO DAILY PRN PRN Reason: Constipation Prazosin HCl (Prazosin Hcl 5 Mg Capsule) 10 mg PO BEDTIME [facility]; Protocol Last Admin: 06/18/22 21:35 Dose: 10 mg Prazosin HCl (Prazosin Hcl 5 Mg Capsule) 5 mg PO DAILY [facility]; Protocol Last Admin: 06/19/22 08:27 Dose: 5 mg Tiotropium [place] (Tiotropium [place] 18 Mcg Cap.W.Dev) 1 puff INHALE RDAILY [facility] Last Admin: 06/19/22 08:26 Dose: 1 puff Trazodone HCl (Trazodone Hcl 100 Mg Tablet) 100 mg PO BEDTIME PRN PRN Reason: Insomnia Last Admin: 06/18/22 21:37 Dose: 100 mg Allergies Allergies Allergy/AdvReac Type Severity Reaction Status Date / Time No Known Allergies Allergy Verified 05/09/22 15:01 Assessment & Plan Assessment & Plan (1) Bipolar II disorder: Status: Acute Code(s): F31.81 - Bipolar II disorder (2) Post traumatic stress disorder (PTSD): Status: Acute Code(s): F43.10 - Post-traumatic stress disorder, unspecified Plan Dick is a 61 y.o. Male who carries a dx of PTSD and Bipolar II DO. He arrived to [facility] on 06/15/22 due to VH of a black shadow, says this is new for him. He reported he has a new medication for anxiety and depression, olanzapine 2.5 mg QHS, however denies benefit. Patient stated that ?something does not feel right? in his mind. He denies SI/SIB. Plan: 06/15: During pt's admission, random POC was 574. I discussed the case with the hospitalist, ordered BMP, which showed hyponatremia to 128, no anion gap, serum bicarb within normal limits. Patient not in DKA and hospitalist did not recommend transfer to [facility] [place]. Patient started on insulin sliding scale regimen, was given 10 units of lispro. Pt was encouraged to hydrate. A follow-up fingerstick glucose improved to 246. Pt also noted to have mild RAPHAEL, baseline creatinine around 1.27; creatinine noted to be 1.7. Will repeat BMP. May re-consult hospitalist as needed, as pt is a diabetic and non-adherent with treatment. Wo uld recommend a VNA upon discharge, as needs support at times keeping rx in order and knowing if he has refills or not. Continue prazosin 5 mg am and 10 mg hs, no orthostasis. Pt started on buspar 15 mg BID for anxiety. Pt supposedly trialed this in the past and had muscle spasms however pt does not remember this and is willing to re-trial. His sx of anxiety, PTSD appear to be exacerbated by situational stressors and he emphasized the need to get a break from his life by coming to the hospital. 06/16: Increase buspar to 15 mg TID to target anxiety, hyperarousal 06/17: Continue current regimen and plans. Ibuprofen is ordered. Hospitalist consult requested for management of his diabetes and possible gout 06/18: Continue current regimen and plans with slight increase of trazodone 06/19: Increase buspar to 20 mg TID for anxiety. Discontinue trazodone due to possibility of worsening nightmares. Increase clonazepam to 1 mg BID PRN for anxiety, agitation. Q15 min safety checks, CV Monitor response to medications. Monitor for safety in the milieu. Discharge on stabilization. Patient seen. Chart reviewed. Discussed with team. Obtain collateral contact info as needed I spent minutes with the patient and/or on the patient floor today, greater than?50% of which was spent counseling/coordinating care. Patient educated on: medication risk/benefits Reason for contiued inpatient stay Substantial Risk for: med/psych decompensation
[2022-06-19 20:28] VITALS: BP 162/79; PULSE 79; TEMP 36.2
[2022-06-19 20:55] LABS: Glucose, Whole Blood 291 mg/dL (60-115)
[2022-06-19] MEDS: Insulin Glargine,Hum.rec.anlog 100 UNIT/ML 10 ML VIAL 20 UNIT SUBCUT (21:08)
[2022-06-19] MEDS: clonazePAM 1 MG TABLET PO (21:11)
[2022-06-19] MEDS: busPIRone HCl 10 MG TABLET 20 MG PO (21:12)
[2022-06-19] MEDS: Prazosin HCL 5 MG CAPSULE 10 MG PO (21:13)
[2022-06-20 06:00] VITALS: BP 124/78; PULSE 96; RESP 16
[2022-06-20 06:26] LABS: Glucose, Whole Blood 263 mg/dL (60-115)
[2022-06-20] MEDS: Fluticasone/Vilanterol 200/25 BLST.W.DEV 1 PUFF INHALE (09:04)
[2022-06-20] MEDS: Prazosin HCL 5 MG CAPSULE PO (09:06)
[2022-06-20] MEDS: DULoxetine HCl 60 MG CAPSULE.DR PO ×2 (09:06→20:43)
[2022-06-20] MEDS: Gabapentin 400 MG CAPSULE 800 MG PO ×3 (09:06→20:44)
[2022-06-20] MEDS: busPIRone HCl 10 MG TABLET 20 MG PO ×3 (09:06→20:43)
[2022-06-20] MEDS: clonazePAM 1 MG TABLET PO ×2 (09:19→20:49)
[2022-06-20] MEDS: Insulin Lispro 100 UNIT/ML 3 ML VIAL SUBCUT ×4 (09:19→21:34)
[2022-06-20 12:30] LABS: Glucose, Whole Blood 322 mg/dL (60-115)
[2022-06-20] MEDS: HaloperidoL 5 MG TABLET PO (13:11)
[2022-06-20 16:19] LABS: Glucose, Whole Blood 291 mg/dL (60-115)
[2022-06-20 18:00] VITALS: BP 127/66; PULSE 72; RESP 16; TEMP 36.1; O2SAT 97
--- NOTE | 2022-06-20 19:01 | P.PNPSI_ITS ---
Subjective Subjective Date of Service: 06/20/22 Reason For Visit: Visual Perceptual alterations Interim History: Patient seen and discussed with team. Patient evaluated today and upon interview he reports he wants to leave, has been engaging in discharge planning with SW. Says the increase in klonopin was perfect. Will discuss med changes with OP psychiatrist, Dr. Marsh. Denies nightmares. Sleep is good. No questions or concerns. Denies SI/SIB/HI upon inquiry. Denies irritability or assaultive ideation. Says he feels safe. Medication Compliance: Yes Side effects from medications: No Attending Groups: Intermittent Review of Systems Acute medical concerns: No Medical Review of Systems: unchanged Mental Status Exam Mental Status Exam Narrative: A&O. Large body stature, okay grooming, casual attire. Good eye contact, attenti ve. No Tics or Tremors. No abnormal involuntary movements. Calm, cooperative, engaged. Non-pressured speech, spontaneous with regular rate and rhythm, normal volume and prosody. No prolonged speech latency or dysarthria. Mood is ?better,? affect is euthymic. Denies SI/SIB/HI upon inquiry. Endorses VH. Denies AH or delusional thought content. Thoughts are coherent, organized. No known cognitive or memory impairment. Insight/ Judgment fair and adequate. Diagnostics Vital Signs (24Hr): Vital Signs - 24 hr 06/19/22 20:28 06/20/22 06:00 06/20/22 18:00 Temperature 97.1 F 97.0 F Pulse Rate 79 96 72 Respiratory Rate 16 16 Blood Pressure 162/79 H 124/78 127/66 Pulse Oximetry 97 Oxygen Delivery Method Room Air Room Air BMI result Body Mass Index 29.4 Labs Results: 06/15/22 02:42 06/16/22 00:42 Labs: Laboratory Results - last 48 hr 06/19/22 06/19/22 06/19/22 06:30 12:08 16:39 POC Glucose 307 H 187 H 290 H 06/19/22 06/20/22 06/20/22 20:52 06:21 12:22 POC Glucose 291 H 263 H 322 H 06/20/22 16:15 POC Glucose 291 H Imaging Radiology Impressions: ITS Impressions Chest X-Ray 06/15/22 02:52 IMPRESSION: No acute cardiopulmonary findings. Medications Medications Current Medications Acetaminophen (Acetaminophen 325 Mg Tablet) 650 mg PO Q6H PRN PRN Reason: Headache/Pain Mild Scale (1-3) Al Hydroxide/Mg Hydroxide (Magnesium Hydrox/Alum Hydrox 30 Ml Oral.Susp) 30 ml PO Q6H PRN PRN Reason: Heartburn/Nausea Al Hydroxide/Mg Hydroxide (Magnesium Hydrox/Alum Hydrox 30 Ml Oral.Susp) 30 ml PO Q6H PRN PRN Reason: Heartburn/Nausea Albuterol Sulfate (Albuterol Sulfate (0.083%) 2.5 Mg/3 Ml Vial.Neb) 2.5 mg INHALE Q4H PRN PRN Reason: shortness of breath or wheezing Last Admin: 06/16/22 09:52 Dose: 2.5 mg Albuterol Sulfate (Albuterol Sulfate 90 Mcg 8 Gm Inhaler) 2 puff INHALE Q4H PRN PRN Reason: bronchospasm Last Admin: 06/18/22 18:28 Dose: 2 puff Benztropine Mesylate (Benztropine Mesylate 1 Mg Tablet) 1 mg PO TID PRN PRN Reason: eps associated with haldol prn Buspirone HCl (Buspirone Hcl 10 Mg Tablet) 20 mg PO TID [facility] Last Admin: 06/20/22 14:39 Dose: 20 mg Clonazepam (Clonazepam 1 Mg Tablet) 1 mg PO BID PRN PRN Reason: Anxiety Last Admin: 06/20/22 09:19 Dose: 1 mg Duloxetine HCl (Duloxetine Hcl 60 Mg Capsule.Dr) 60 mg PO BID [facility] Last Admin: 06/20/22 09:06 Dose: 60 mg Fluticasone/Vilanterol (Fluticasone/Vilanterol 200/25 Blst.W.Dev) 1 puff INHALE RDAILY [facility] Last Admin: 06/20/22 09:04 Dose: 1 puff Gabapentin (Gabapentin 400 Mg Capsule) 800 mg PO TID [facility] Last Admin: 06/20/22 14:39 Dose: 800 mg Haloperidol (Haloperidol 5 Mg Tablet) 5 mg PO TID PRN PRN Reason: agitation, psychosis Last Admin: 06/20/22 13:11 Dose: 5 mg Hydroxyzine HCl (Hydroxyzine Hcl 25 Mg Tablet) 25 mg PO Q6H PRN PRN Reason: Anxiety Last Admin: 06/19/22 16:13 Dose: 25 mg Ibuprofen (Ibuprofen 600 Mg Tablet) 600 mg PO Q4H PRN PRN Reason: Pain, Mild (Pain Scale 1-3) Last Admin: 06/19/22 16:12 Dose: 600 mg Insulin Glargine (Insulin Glargine,Hum.Rec.Anlog 100 Unit/Ml 10 Ml Vial) 20 unit SUBCUT BEDTIME [facility] Last Admin: 06/19/22 21:08 Dose: 20 unit Insulin Human Lispro (Insulin Lispro 100 Unit/Ml 3 Ml Vial) 0 unit SUBCUT QIDACHS [facility]; Protocol Last Admin: 06/20/22 18:12 Dose: 6 unit Magnesium Hydroxide (Milk Of Magnesia 30 Ml Oral.Susp) 30 ml PO DAILY PRN PRN Reason: Constipation Magnesium Hydroxide (Milk Of Magnesia 30 Ml Oral.Susp) 30 ml PO DAILY PRN PRN Reason: Constipation Prazosin HCl (Prazosin Hcl 5 Mg Capsule) 10 mg PO BEDTIME [facility]; Protocol Last Admin: 06/19/22 21:13 Dose: 10 mg Prazosin HCl (Prazosin Hcl 5 Mg Capsule) 5 mg PO DAILY [facility]; Protocol Last Admin: 06/20/22 09:06 Dose: 5 mg Tiotropium [place] (Tiotropium [place] 18 Mcg Cap.W.Dev) 1 puff INHALE RDAILY [facility] Last Admin: 06/20/22 09:04 Dose: 1 puff Allergies Allergies Allergy/AdvReac Type Severity Reaction Status Date / Time No Known Allergies Allergy Verified 05/09/22 15:01 Assessment & Plan Assessment & Plan (1) Bipolar II disorder: Status: Acute Code(s): F31.81 - Bipolar II disorder (2) Post traumatic stress disorder (PTSD): Status: Acute Code(s): F43.10 - Post-traumatic stress disorder, unspecified Plan Dick is a 61 y.o. Male who carries a dx of PTSD and Bipolar II DO. He arrived to [facility] on 06/15/22 due to VH of a black shadow, says this is new for him. He reported he has a new medication for anxiety and depression, olanzapine 2.5 mg QHS, however denies benefit. Patient stated that ?something does not feel right? in his mind. He denies SI/SIB. Plan: 06/15: During pt's admission, random POC was 574. I discussed the case with the hospitalist, ordered BMP, which showed hyponatremia to 128, no anion gap, serum bicarb within normal limits. Patient not in DKA and hospitalist did not recommend transfer to [facility] [place]. Patient started on insulin sliding scale regimen, was given 10 units of lispro. Pt was encouraged to hydrate. A follow-up fingerstick glucose improved to 246. Pt also noted to have mild RAPHAEL, baseline creatinine around 1.27; creatinine noted to be 1.7. Will repeat BMP. May re-consult hospitalist as needed, as pt is a diabetic and non-adherent with treatment. Would recommend a VNA upon discharge, as needs support at times keeping rx in order and knowing if he has refills or not. Continue prazosin 5 mg am and 10 mg hs, no orthostasis. Pt started on buspar 15 mg BID for anxiety. Pt supposedly trialed this in the past and had muscle spasms however pt does not remember this and is willing to re-trial. His sx of anxiety, PTSD appear to be exacerbated by situational stressors and he emphasized the need to get a break from his life by coming to the hospital. 06/16: Increase buspar to 15 mg TID to target anxiety, hyperarousal 06/17: Continue current regimen and plans. Ibuprofen is ordered. Hospitalist consult requested for management of his diabetes and possible gout 06/18: Continue current regimen and plans with slight increase of trazodone 06/19: Increase buspar to 20 mg TID for anxiety. Discontinue trazodone due to possibility of worsening nightmares. Increase clonazepam to 1 mg BID PRN for anxiety, agitation. 06/20: Reports benefit on medication, does not want changes Q15 min safety checks, CV Monitor response to medications. Monitor for safety in the milieu. Discharge on stabilization. Patient seen. Chart reviewed. Discussed with team. Obtain collateral contact info as needed I spent minutes with the patient and/or on the patient floor today, greater than?50% of which was spent counseling/coordinating care. Patient educated on: medication risk/benefits Reason for contiued inpatient stay Substantial Risk for: med/psych decompensation
[2022-06-20] MEDS: Prazosin HCL 5 MG CAPSULE 10 MG PO (20:43)
[2022-06-20 20:57] LABS: Glucose, Whole Blood 283 mg/dL (60-115)
[2022-06-20] MEDS: Insulin Glargine,Hum.rec.anlog 100 UNIT/ML 10 ML VIAL 20 UNIT SUBCUT (21:33)
[2022-06-20] MEDS: Albuterol Sulfate 90 MCG 8 GM INHALER 2 PUFF INHALE (23:58)
[2022-06-21 06:22] LABS: Glucose, Whole Blood 246 mg/dL (60-115)
[2022-06-21 08:00] VITALS: BP 128/74; PULSE 71; RESP 16; TEMP 36.1; O2SAT 97
[2022-06-21] MEDS: busPIRone HCl 10 MG TABLET 20 MG PO ×3 (08:27→20:51)
[2022-06-21] MEDS: Gabapentin 400 MG CAPSULE 800 MG PO ×3 (08:27→20:49)
[2022-06-21] MEDS: Prazosin HCL 5 MG CAPSULE PO (08:27)
[2022-06-21] MEDS: DULoxetine HCl 60 MG CAPSULE.DR PO ×2 (08:28→20:50)
[2022-06-21] MEDS: Insulin Lispro 100 UNIT/ML 3 ML VIAL SUBCUT ×4 (08:28→21:00)
[2022-06-21] MEDS: Fluticasone/Vilanterol 200/25 BLST.W.DEV 1 PUFF INHALE (08:34)
[2022-06-21 12:28] LABS: Glucose, Whole Blood 290 mg/dL (60-115)
[2022-06-21] MEDS: clonazePAM 1 MG TABLET PO ×2 (14:13→20:59)
[2022-06-21] MEDS: Ibuprofen 600 MG TABLET PO (16:24)
[2022-06-21 17:57] LABS: Glucose, Whole Blood 293 mg/dL (60-115)
[2022-06-21 20:45] VITALS: BP 110/61; PULSE 79; TEMP 35.8
[2022-06-21] MEDS: Prazosin HCL 5 MG CAPSULE 10 MG PO (20:50)
[2022-06-21 20:51] LABS: Glucose, Whole Blood 310 mg/dL (60-115)
[2022-06-21] MEDS: Insulin Glargine,Hum.rec.anlog 100 UNIT/ML 10 ML VIAL 20 UNIT SUBCUT (20:59)
--- NOTE | 2022-06-21 23:17 | P.PNPSI_ITS ---
Subjective Subjective Date of Service: 06/21/22 Reason For Visit: Visual Perceptual alterations Subjective Notes: Gee Warning Interim History: Patient seen and discussed with team. Patient evaluated today and upon interview he reports he feels happy, leaving tomorrow, has to do laundry, get his phone, contact [employer] and [employer]. 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 Denies SI/SIB/HI upon inquiry. Denies irritability or assaultive ideation. Says he feels safe. Medication Compliance: Yes Side effects from medications: No Attending Groups: Intermittent Review of Systems Acute medical concerns: No Medical Review of Systems: unchanged Mental Status Exam Mental Status Exam Narrative: A&O. Large body stature, okay grooming, casual attire. Good eye contact, at tentive. No Tics or Tremors. No abnormal involuntary movements. Calm, cooperative, engaged. Non-pressured speech, spontaneous with regular rate and rhythm, normal volume and prosody. No prolonged speech latency or dysarthria. Mood is ?happy,? affect is euthymic. Denies SI/SIB/HI upon inquiry. Endorses VH. Denies AH or delusional thought content. Thoughts are coherent, organized. No known cognitive or memory impairment. Insight/ Judgment fair and adequate. Diagnostics Vital Signs (24Hr): Vital Signs - 24 hr 06/21/22 08:00 06/21/22 20:45 Temperature 97 F 96.5 F L Pulse Rate 71 79 Respiratory Rate 16 Blood Pressure 128/74 110/61 Pulse Oximetry 97 Oxygen Delivery Method Room Air BMI result Body Mass Index 29.4 Labs Results: 06/15/22 02:42 06/16/22 00:42 Labs: Laboratory Results - last 48 hr 06/20/22 06/20/22 06/20/22 06:21 12:22 16:15 POC Glucose 263 H 322 H 291 H 06/20/22 06/21/22 06/21/22 20:52 06:18 12:22 POC Glucose 283 H 246 H 290 H 06/21/22 06/21/22 17:29 20:47 POC Glucose 293 H 310 H Imaging Radiology Impressions: ITS Impressions Chest X-Ray 06/15/22 02:52 IMPRESSION: No acute cardiopulmonary findings. Medications Medications Current Medications Acetaminophen (Acetaminophen 325 Mg Tablet) 650 mg PO Q6H PRN PRN Reason: Headache/Pain Mild Scale (1-3) Al Hydroxide/Mg Hydroxide (Magnesium Hydrox/Alum Hydrox 30 Ml Oral.Susp) 30 ml PO Q6H PRN PRN Reason: Heartburn/Nausea Al Hydroxide/Mg Hydroxide (Magnesium Hydrox/Alum Hydrox 30 Ml Oral.Susp) 30 ml PO Q6H PRN PRN Reason: Heartburn/Nausea Albuterol Sulfate (Albuterol Sulfate (0.083%) 2.5 Mg/3 Ml Vial.Neb) 2.5 mg INHALE Q4H PRN PRN Reason: shortness of breath or wheezing Last Admin: 06/16/22 09:52 Dose: 2.5 mg Albuterol Sulfate (Albuterol Sulfate 90 Mcg 8 Gm Inhaler) 2 puff INHALE Q4H PRN PRN Reason: bronchospasm Last Admin: 06/20/22 23:58 Dose: 2 puff Benztropine Mesylate (Benztropine Mesylate 1 Mg Tablet) 1 mg PO TID PRN PRN Reason: eps associated with haldol prn Buspirone HCl (Buspirone Hcl 10 Mg Tablet) 20 mg PO TID [facility] Last Admin: 06/21/22 20:51 Dose: 20 mg Clonazepam (Clonazepam 1 Mg Tablet) 1 mg PO BID PRN PRN Reason: Anxiety Last Admin: 06/21/22 20:59 Dose: 1 mg Duloxetine HCl (Duloxetine Hcl 60 Mg Capsule.Dr) 60 mg PO BID [facility] Last Admin: 06/21/22 20:50 Dose: 60 mg Fluticasone/Vilanterol (Fluticasone/Vilanterol 200/25 Blst.W.Dev) 1 puff INHALE RDAILY [facility] Last Admin: 06/21/22 08:34 Dose: 1 puff Gabapentin (Gabapentin 400 Mg Capsule) 800 mg PO TID [facility] Last Admin: 06/21/22 20:49 Dose: 800 mg Haloperidol (Haloperidol 5 Mg Tablet) 5 mg PO TID PRN PRN Reason: agitation, psychosis Last Admin: 06/20/22 13:11 Dose: 5 mg Hydroxyzine HCl (Hydroxyzine Hcl 25 Mg Tablet) 25 mg PO Q6H PRN PRN Reason: Anxiety Last Admin: 06/19/22 16:13 Dose: 25 mg Ibuprofen (Ibuprofen 600 Mg Tablet) 600 mg PO Q4H PRN PRN Reason: Pain, Mild (Pain Scale 1-3) Last Admin: 06/21/22 16:24 Dose: 600 mg Insulin Glargine (Insulin Glargine,Hum.Rec.Anlog 100 Unit/Ml 10 Ml Vial) 20 unit SUBCUT BEDTIME [facility] Last Admin: 06/21/22 20:59 Dose: 20 unit Insulin Human Lispro (Insulin Lispro 100 Unit/Ml 3 Ml Vial) 0 unit SUBCUT QIDACHS WARREN; Protocol Last Admin: 06/21/22 21:00 Dose: 8 unit Magnesium Hydroxide (Milk Of Magnesia 30 Ml Oral.Susp) 30 ml PO DAILY PRN PRN Reason: Constipation Magnesium Hydroxide (Milk Of Magnesia 30 Ml Oral.Susp) 30 ml PO DAILY PRN PRN Reason: Constipation Prazosin HCl (Prazosin Hcl 5 Mg Capsule) 10 mg PO BEDTIME WARREN; Protocol Last Admin: 06/21/22 20:50 Dose: 10 mg Prazosin HCl (Prazosin Hcl 5 Mg Capsule) 5 mg PO DAILY [facility]; Protocol Last Admin: 06/21/22 08:27 Dose: 5 mg Tiotropium [place] (Tiotropium [place] 18 Mcg Cap.W.Dev) 1 puff INHALE RDAILY [facility] Last Admin: 06/21/22 08:32 Dose: 1 puff Allergies Allergies Allergy/AdvReac Type Severity Reaction Status Date / Time No Known Allergies Allergy Verified 05/09/22 15:01 Assessment & Plan Assessment & Plan (1) Bipolar II disorder: Status: Acute Code(s): F31.81 - Bipolar II disorder (2) Post traumatic stress disorder (PTSD): Status: Acute Code(s): F43.10 - Post-traumatic stress disorder, unspecified Plan Dick is a 61 y.o. Male who carries a dx of PTSD and Bipolar II DO. He arrived to [facility] on 06/15/22 due to VH of a black shadow, says this is new for him. He reported he has a new medication for anxiety and depression, olanzapine 2.5 mg QHS, however denies benefit. Patient stated that ?something does not feel right? in his mind. He denies SI/SIB. Plan: 06/15: During pt's admission, random POC was 574. I discussed the case with the hospitalist, ordered BMP, which showed hyponatremia to 128, no anion gap, serum bicarb within normal limits. Patient not in DKA and hospitalist did not recommend transfer to [facility]. Patient started on insulin sliding scale regimen, was given 10 units of lispro. Pt was encouraged to hydrate. A follow-up fingerstick glucose improved to 246. Pt also noted to have mild RAPHAEL, baseline creatinine around 1.27; creatinine noted to be 1.7. Will repeat BMP. May re-consult hospitalist as needed, as pt is a diabetic and non-adherent with treatment. Would recommend a VNA upon discharge, as needs support at times keeping rx in order and knowing if he has refills or not. Continue prazosin 5 mg am and 10 mg hs, no orthostasis. Pt started on buspar 15 mg BID for anxiety. Pt supposedly trialed this in the past and had muscle spasms however pt does not remember this and is willing to re-trial. His sx of anxiety, PTSD appear to be exacerbated by situational stressors and he emphasized the need to get a break from his life by coming to the hospital. 06/16: Increase buspar to 15 mg TID to target anxiety, hyperarousal 06/17: Continue current regimen and plans. Ibuprofen is ordered. Hospitalist consult requested for management of his diabetes and possible gout 06/18: Continue current regimen and plans with slight increase of trazodone 06/19: Increase buspar to 20 mg TID for anxiety. Discontinue trazodone due to possibility of worsening nightmares. Increase clonazepam to 1 mg BID PRN for anxiety, agitation. 06/20: Reports benefit on medication, does not want changes 06/21: No med changes, pt is motivated for discharge, no imminent safety concerns, reports efficacy on medication changes. Understands he will be discharged on klonopin 0.5 mg BID. Discuused med changes with pt's OP provider, Dr. Long at [facility], who is in agreement with plan. Q15 min safety checks, CV Monitor response to medications. Monitor for safety in the milieu. Discharge on stabilization. Patient seen. Chart reviewed. Discussed with team. Obtain collateral contact info as needed I spent minutes with the patient and/or on the patient floor today, greater than?50% of which was spent counseling/coordinating care. Patient educated on: medication risk/benefits and therapeutic strategies Reason for contiued inpatient stay Substantial Risk for: med/psych decompensation
[2022-06-22 06:41] LABS: Glucose, Whole Blood 286 mg/dL (60-115)
[2022-06-22 07:00] VITALS: BMI 31.0
[2022-06-22 08:30] VITALS: BP 146/73; PULSE 86; RESP 16; TEMP 35.9; O2SAT 96
[2022-06-22] MEDS: busPIRone HCl 10 MG TABLET 20 MG PO (08:31)
[2022-06-22] MEDS: Gabapentin 400 MG CAPSULE 800 MG PO (08:31)
[2022-06-22] MEDS: DULoxetine HCl 60 MG CAPSULE.DR PO (08:31)
[2022-06-22] MEDS: Fluticasone/Vilanterol 200/25 BLST.W.DEV 1 PUFF INHALE (08:32)
[2022-06-22] MEDS: Prazosin HCL 5 MG CAPSULE PO (08:32)
[2022-06-22 08:47] LABS: Glucose, Whole Blood 275 mg/dL (60-115)
--- NOTE | 2022-06-22 09:22 | PM.PSYDC ---
DS: Providers Provider Date of Service: 06/22/22 Date of admission: 06/15/22 17:34 Date of discharge: 06/22/22 Primary care physician: Unknown Physician Admitting clinician: Lola Wheatley Attending physician on admission: Randy Onofre Consults: 06/17/22 09:49 Consult to Hospitalist Stat Consulting Provider: Hospitalist Reason For Exam: management of disbetes and possible gout Attending physician on discharge: Randy Onofre Discharging clinician: Lola Wheatley DS: Diagnosis Discharge Diagnosis (1) Bipolar II disorder: Status: Acute (2) Post traumatic stress disorder (PTSD): Status: Acute DS: Medications Discharge Medications Home Medications: Home Medications Medication Instructions Recorded Confirmed blood sugar diagnostic (FreeStyle #10 ea 12/15/21 Lite Strips) lancets 33 gauge (TRUEplus Lancets) #100 ea 12/15/21 Previous Rx's Medication Instructions Recorded fluticasone fur. 200 mcg-umeclid 1 inh inhalation DAILY 30 days #60 05/09/22 62.5 mcg-vilant 25 mcg ea inhalat.powder (Trelegy Ellipta) albuterol sulfate 2.5 mg/3 mL 2.5 mg (3 mL) inhalation Q4H PRN 06/22/22 (0.083 %) solution for nebulization shortness of breath or wheezing #90 mL albuterol sulfate 90 mcg/actuation 2 puff inhalation Q4H PRN 06/22/22 aerosol inhaler (Ventolin HFA) bronchospasm #6.7 grams buspirone 10 mg tablet 20 mg PO TID #180 tabs 06/22/22 clonazepam 1 mg tablet 0.5 mg PO BID PRN Anxiety #60 tabs 06/22/22 duloxetine 60 mg capsule,delayed 60 mg PO BID #60 caps 06/22/22 release gabapentin 400 mg capsule 800 mg PO TID #180 caps 06/22/22 insulin glargine 100 unit/mL 20 unit (0.2 mL) subcut BEDTIME 06/22/22 subcutaneous solution (Lantus #10 mL U-100 Insulin) prazosin 5 mg capsule 5 mg PO DAILY #30 caps 06/22/22 prazosin 5 mg capsule 10 mg PO BEDTIME #60 caps 06/22/22 tiotropium bromide 18 mcg capsule 18 mcg inhalation RDAILY #90 06/22/22 with inhalation device (Spiriva inhalations with HandiHaler) Mental Status Exam Mental Status Exam Narrative: A&O. Large body stature, okay grooming, casual attire. Good eye contact, attentive. No Tics or Tremors. No abnormal involuntary movements. Calm, cooperative, engaged. Non-pressured speech, spontaneous with regular rate and rhythm, normal volume and prosody. No prolonged speech latency or dysarthria. Mood is ?good,? affect is euthymic. Denies SI/SIB/HI upon inquiry. Endorses VH. Denies AH or delusional thought content. Thoughts are coherent, organized. No known cognitive or memory impairment. Insight/ Judgment fair and adequate. Data Data Completed and Pending Completed studies during hospitalization [Text1]: 06/15/22 06/15/22 06/16/22 21:51 22:35 00:12 Sodium 128 L Potassium 4.6 Chloride 94 L Carbon Dioxide 22 Anion Gap 17 BUN 22 H Creatinine 1.72 H Estim Creat Clear Calc 55.5 Estimated GFR 41 POC Glucose 574 H* 246 H Random Glucose 585 H* Estimat Average Glucose Hemoglobin A1c % Uric Acid Calcium 8.6 Magnesium Triglycerides Cholesterol LDL Cholesterol, Calc HDL Cholesterol Vitamin B12 Folate TSH Free T4 06/16/22 06/16/22 06/16/22 00:42 05:59 08:14 Sodium 133 L Potassium 4.0 Chloride 97 Carbon Dioxide 26 Anion Gap 14 BUN 22 H Creatinine 1.29 Estim Creat Clear Calc 74.0 Estimated GFR 57 POC Glucose 261 H Random Glucose 261 H D Estimat Average Glucose 203 Hemoglobin A1c % 8.7 Uric Acid Calcium 8.7 Magnesium Triglycerides Cholesterol LDL Cholesterol, Calc HDL Cholesterol Vitamin B12 Folate TSH Free T4 06/16/22 06/16/22 06/16/22 08:14 08:49 11:47 Sodium Potassium Chloride Carbon Dioxide Anion Gap BUN Creatinine Estim Creat Clear Calc Estimated GFR POC Glucose 392 H* Random Glucose Estimat Average Glucose Hemoglobin A1c % Uric Acid Calcium Magnesium 2.3 Triglycerides 227 Cholesterol 285 LDL Cholesterol, Calc 186 HDL Cholesterol 54 Vitamin B12 257 Folate 8.9 TSH 1.32 Free T4 0.88 06/16/22 06/16/22 06/16/22 16:50 17:38 19:06 Sodium Potassium Chloride Carbon Dioxide Anion Gap BUN Creatinine Estim Creat Clear Calc Estimated GFR POC Glucose 379 H* 388 H* 303 H Random Glucose Estimat Average Glucose Hemoglobin A1c % Uric Acid Calcium Magnesium Triglycerides Cholesterol LDL Cholesterol, Calc HDL Cholesterol Vitamin B12 Folate TSH Free T4 06/16/22 06/17/22 06/17/22 20:36 04:40 06:51 Sodium Potassium Chloride Carbon Dioxide Anion Gap BUN Creatinine Estim Creat Clear Calc Estimated GFR POC Glucose 266 H 260 H 302 H Random Glucose Estimat Average Glucose Hemoglobin A1c % Uric Acid Calcium Magnesium Triglycerides Cholesterol LDL Cholesterol, Calc HDL Cholesterol Vitamin B12 Folate TSH Free T4 06/17/22 06/17/22 06/17/22 11:19 12:09 16:46 Sodium Potassium Chloride Carbon Dioxide Anion Gap BUN Creatinine Estim Creat Clear Calc Estimated GFR POC Glucose 90 407 H* Random Glucose Estimat Average Glucose Hemoglobin A1c % Uric Acid 6.9 Calcium Magnesium Triglycerides Cholesterol LDL Cholesterol, Calc HDL Cholesterol Vitamin B12 Folate TSH Free T4 06/17/22 06/17/22 06/19/22 17:41 21:42 06:30 Sodium Potassium Chloride Carbon Dioxide Anion Gap BUN Creatinine Estim Creat Clear Calc Estimated GFR POC Glucose 330 H 256 H 307 H Random Glucose Estimat Average Glucose Hemoglobin A1c % Uric Acid Calcium Magnesium Triglycerides Cholesterol LDL Cholesterol, Calc HDL Cholesterol Vitamin B12 Folate TSH Free T4 06/19/22 06/19/22 06/19/22 12:08 16:39 20:52 Sodium Potassium Chloride Carbon Dioxide Anion Gap BUN Creatinine Estim Creat Clear Calc Estimated GFR POC Glucose 187 H 290 H 291 H Random Glucose Estimat Average Glucose Hemoglobin A1c % Uric Acid Calcium Magnesium Triglycerides Cholesterol LDL Cholesterol, Calc HDL Cholesterol Vitamin B12 Folate TSH Free T4 06/20/22 06/20/22 06/20/22 06:21 12:22 16:15 Sodium Potassium Chloride Carbon Dioxide Anion Gap BUN Creatinine Estim Creat Clear Calc Estimated GFR POC Glucose 263 H 322 H 291 H Random Glucose Estimat Average Glucose Hemoglobin A1c % Uric Acid Calcium Magnesium Triglycerides Cholesterol LDL Cholesterol, Calc HDL Cholesterol Vitamin B12 Folate TSH Free T4 06/20/22 06/21/22 06/21/22 20:52 06:18 12:22 Sodium Potassium Chloride Carbon Dioxide Anion Gap BUN Creatinine Estim Creat Clear Calc Estimated GFR POC Glucose 283 H 246 H 290 H Random Glucose Estimat Average Glucose Hemoglobin A1c % Uric Acid Calcium Magnesium Triglycerides Cholesterol LDL Cholesterol, Calc HDL Cholesterol Vitamin B12 Folate TSH Free T4 06/21/22 06/21/22 06/22/22 17:29 20:47 06:34 Sodium Potassium Chloride Carbon Dioxide Anion Gap BUN Creatinine Estim Creat Clear Calc Estimated GFR POC Glucose 293 H 310 H 286 H Random Glucose Estimat Average Glucose Hemoglobin A1c % Uric Acid Calcium Magnesium Triglycerides Cholesterol LDL Cholesterol, Calc HDL Cholesterol Vitamin B12 Folate TSH Free T4 06/22/22 08:41 Sodium Potassium Chloride Carbon Dioxide Anion Gap BUN Creatinine Estim Creat Clear Calc Estimated GFR POC Glucose 275 H Random Glucose Estimat Average Glucose Hemoglobin A1c % Uric Acid Calcium Magnesium Triglycerides Cholesterol LDL Cholesterol, Calc HDL Cholesterol Vitamin B12 Folate TSH Free T4 Imaging Diagnostic Imaging Impressions Chest X-Ray 06/15/22 02:52 IMPRESSION: No acute cardiopulmonary findings. DS: Summary Hospital Course Hospital Course: Dick is a 61 y.o. Male who carries a dx of PTSD and Bipolar II DO. He arrived to [facility] on 06/15/22 due to VH of a black shadow, says this is new for him. 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 He is struggling with anxiety, irritability, and says he is easily bothered. 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 Pt was recently started on olanzapine 2.5 mg HS for anxiety and mood stability by his OP psychiatrist, Dr. Long at [facility]. He also had his cymbalta increased to 60 mg BID on 06/01/22. During pt's admission, random POC was 574. I discussed the case with the hospitalist, ordered BMP, which showed hyponatremia to 128, no anion gap, serum bicarb within normal limits. Patient not in DKA and hospitalist did not recommend transfer to [facility]. Patient started on insulin sliding scale regimen, was given 10 units of lispro. Pt was encouraged to hydrate. A follow-up fingerstick glucose improved to 246. During course of hospitalization, pt's olanzapine 2.5 mg QHS was discontinued. Continued on prazosin 5 mg am and 10 mg hs, no orthostasis. Pt started on buspar for anxiety, which was titrated up to 20 mg TID, which he reported benefit on and denied side effects. Klonopin was increased from 0.5 mg daily PRN to 1 mg BID PRN, however pt understands OP psychiatrist will continue it at 0.5 mg daily and he was discharged at 0.5 mg BID PRN. Discussed med changes with pt's OP psychiatrist. At the time of discharge, pt was at baseline, pleasant, cooperative, and less agitated, anxiety improved. Time spent discussing smoking cessation with patient: 3 to 10 minutes Status at Discharge Functional status at discharge: independent ambulation Overall status at discharge: patient is back to baseline Time Spent with Patient Time attestation: Total time spent providing and/or coordinating discharge services: Time spent: Less than 30 minutes Discharge Plan Discharge Patient Disposition: Home, Self-Care Discharge Diagnosis: PTSD, Bipolar II DO Referrals: Cam Bonilla [Other] - 06/29/22 3:00 pm (Outpatient follow-up appointment with therapist Appointment with therapist can be in person or by tele-health. It is patient's decision either in office or tele-health.) Simran Thomson [Other] - 08/05/22 10:00 am (Patient appointment with outpatient psychiatric provider in office at [facility]) Cy Ruano MD [Physician] - 06/30/22 9:00 am (IN OFFICE) Discharge Medications: New clonazepam 1 mg Tablet 0.5 mg PO BID PRN (Reason: Anxiety) Qty: 60 2RF Spiriva with HandiHaler 18 mcg Capsule, W/Inhalation Device 18 mcg inhalation RDAILY Qty: 90 1RF albuterol sulfate 2.5 mg /3 mL (0.083 %) Solution For Nebulization 2.5 mg inhalation Q4H PRN (Reason: shortness of breath or wheezing) Qty: 90 2RF gabapentin 400 mg Capsule 800 mg PO TID Qty: 180 2RF prazosin 5 mg Capsule 10 mg PO BEDTIME Qty: 60 2RF Protocol: Hold for SBP< HOLD for SBP < : 90 prazosin 5 mg Capsule 5 mg PO DAILY Qty: 30 2RF Protocol: Hold for SBP< HOLD for SBP < : 90 buspirone 10 mg Tablet 20 mg PO TID Qty: 180 2RF albuterol sulfate [Ventolin HFA] 90 mcg/actuation Hfa Aerosol Inhaler 2 puff inhalation Q4H PRN (Reason: bronchospasm) Qty: 6.7 2RF duloxetine 60 mg Capsule,Delayed Release(Dr/Ec) 60 mg PO BID Qty: 60 2RF insulin glargine [Lantus U-100 Insulin] 100 unit/mL Solution 20 unit subcut BEDTIME Qty: 10 2RF (DME) insulin syringe-needle U-100 [Insulin Syringe] 1 mL 29 gauge x 1/2 syringe See Rx Instructions .Route Qty: 100 0RF Rx Instructions: As directed alcohol swabs [Alcohol Prep Pads] Pads, Medicated 1 pad topical BID Qty: 200 0RF clonazepam [Klonopin] 0.5 mg tablet 0.5 mg PO BID Qty: 60 1RF Continued Trelegy Ellipta 200-62.5-25 mcg blister with device 1 inh inhalation DAILY 30 Days Qty: 60 12RF (DME) lancets [TRUEplus Lancets] 33 gauge misc See Rx Instructions Not Applicable BID Qty: 100 Rx Instructions: As directed (DME) FreeStyle Lite Strips Strip See Rx Instructions Not Applicable BID Qty: 10 Rx Instructions: As directed Discontinued albuterol sulfate 90 mcg/actuation HFA aerosol inhaler 2 puff inhalation Q4-6H PRN (Reason: bronchospasm) 30 Days Qty: 8.5 11RF albuterol sulfate 2.5 mg /3 mL (0.083 %) solution for nebulization 2.5 mg inhalation Q4H PRN (Reason: shortness of breath or wheezing) 30 Days Qty: 180 11RF clonazepam 0.5 mg tablet 1 tab PO DAILY PRN (Reason: Anxiety) prazosin 5 mg capsule 2 cap PO BEDTIME gabapentin 800 mg tablet 1 tab PO TID prazosin 5 mg capsule 5 mg PO DAILY duloxetine [Cymbalta] 60 mg capsule,delayed release(DR/EC) 1 cap PO BID Discharge Orders: Discharge Order (Routine); Ordered 06/22/22 Ordered By: Lola Wheatley Diet: Advance to usual diet Activity on Discharge: As tolerated Stand Alone Forms: Patient Portal Discharge page, Community Support Care Plan Goals: Continue psychiatric medications as prescribed and follow up with outpatient referrals and PCP. Health Concerns: Smoking Cessation Abstain from alcohol Follow up with director of district office Follow up with PCP for diabetes management Mood stabilization Maintain mood and safe behaviors Practice coping skills Continue with outpatient providers and reach out to them as needed Plan of Treatment: Attend follow up appointments with OP psych services and PCP Patient will continue on psychotropic medication regimen for mood stability and sobriety Take medications as directed A one month supply of medication has been sent to your pharmacy Crisis Team if needed [phone] Call and or return if needed Assessment: Patient denies suicidal ideation or self harm urges. No aggression or assaultive ideation. Denies homicidal ideation. Patient feels safe for discharge, no imminent safety concerns. Discharge Date/Time: 06/22/22 13:50
[2022-06-22] MEDS: Insulin Lispro 100 UNIT/ML 3 ML VIAL SUBCUT ×2 (09:25→12:21)
--- NOTE | 2022-06-22 10:21 | PC.NURSE ---
Dick is alert, fully oriented, pleasant and cooperative with discharge process. He verbalzes understanding of discharge medications and appointments. He verbalizes intent to follow discharge instructions. He denies ideation, plan or intent to harm self or others. He denies physical complaint.
[2022-06-22 12:25] LABS: Glucose, Whole Blood 434 mg/dL (60-115)
[2022-06-22] MEDS: clonazePAM 1 MG TABLET PO (13:47)
== END 2022-06-22 13:50 | disposition home or self-care (01) | DRG 885 ==
LOC: HO.ED 16:40 → HO.PM5 17:49
PROVIDERS: Emergency Medicine; Hospitalist; Psychiatry & Neurology Psychiatry; Registered Nurse; Admitting Provider Psychiatry & Neurology Psychiatry; Emergency Provider Emergency Medicine Emergency Medical Services; Visit Provider Clinical Nurse Specialist Psychiatric/Mental Health, Adult
DX: F31.81 Bipolar II disorder (principal); F41.9 Anxiety disorder, unspecified; J44.9 Chronic obstructive pulmonary disease, unspecified; E11.40 Type 2 diabetes mellitus with diabetic neuropathy, unspecified; F43.10 Post-traumatic stress disorder, unspecified; E11.65 Type 2 diabetes mellitus with hyperglycemia; F17.210 Nicotine dependence, cigarettes, uncomplicated; Z20.822 Contact with and (suspected) exposure to COVID-19; Z71.6 Tobacco abuse counseling; Z79.51 Long term (current) use of inhaled steroids; Z79.899 Other long term (current) drug therapy
CPT/HCPCS: 36415; 71045; 80048; 80053; 80061; 80307; 82607; 82746; 82947; 83036; 83735; 84439; 84443; 84484; 84550; 85025; 87635; 93005; 99285

== ENCOUNTER 2022-07-10 14:45 | Inpatient (IN) | payer OTHER, SELFPAY ==
[2022-07-10 15:09] VITALS: BP 146/77; PULSE 87; RESP 19; TEMP 36.6; O2SAT 98; BMI 29.6
--- NOTE | 2022-07-10 16:05 | ED.PSYCH ---
HPI - Psych General Chief Complaint: Psychiatric Symptoms Stated Complaint: crisis Time Seen by Provider: 07/10/22 15:54 Source: patient Mode of arrival: ambulatory Limitations: no limitations History of Present Illness HPI Narrative: this is a 61-year-old male with a history of insulin-dependent diabetes, depression, anxiety, PTSD who presents with 1 week of flashbacks, nightmares, visual hallucinations, vague suicidal thoughts with no plan. No homicidal ideations. Patient denies substance use. Patient reports he was recently admitted to psychiatric unit and had some medication changes. He does not know which medicines were changed. He has no physical complaints Related Data Home Medications Medication Instructions Recorded Confirmed blood sugar diagnostic (FreeStyle #10 ea 12/15/21 Lite Strips) lancets 33 gauge (TRUEplus Lancets) #100 ea 12/15/21 clotrimazole 1 % topical cream 1 applic topical BID 07/10/22 07/10/22 hydrocortisone 1 % topical cream 1 appl topical BID 07/10/22 07/10/22 valacyclovir 500 mg tablet 1 tab PO BID 07/10/22 07/10/22 Previous Rx's Medication Instructions Recorded albuterol sulfate 2.5 mg/3 mL 2.5 mg (3 mL) inhalation Q4H PRN 06/22/22 (0.083 %) solution for nebulization shortness of breath or wheezing #90 mL albuterol sulfate 90 mcg/actuation 2 puff inhalation Q4H PRN 06/22/22 aerosol inhaler (Ventolin HFA) bronchospasm #6.7 grams buspirone 10 mg tablet 20 mg PO TID #180 tabs 06/22/22 duloxetine 60 mg capsule,delayed 60 mg PO BID #60 caps 06/22/22 release gabapentin 400 mg capsule 800 mg PO TID #180 caps 06/22/22 insulin glargine 100 unit/mL 20 unit (0.2 mL) subcut BEDTIME 06/22/22 subcutaneous solution (Lantus #10 mL U-100 Insulin) insulin syringe-needle U-100 1 mL #100 ea 06/22/22 29 gauge x 1/2 (Insulin Syringe) prazosin 5 mg capsule 5 mg PO DAILY #30 caps 06/22/22 prazosin 5 mg capsule 10 mg PO BEDTIME #60 caps 06/22/22 tiotropium bromide 18 mcg capsule 18 mcg inhalation RDAILY #90 06/22/22 with inhalation device (Spiriva inhalations with HandiHaler) clonazepam 0.5 mg tablet (Klonopin) 0.5 mg PO BID #60 tabs 06/26/22 Allergies Allergy/AdvReac Type Severity Reaction Status Date / Time No Known Allergies Allergy Verified 05/09/22 15:01 Review of Systems Review of Systems: Yes all other systems are reviewed and are negative Constitutional: Constitutional: Reports no additional constitutional complaints, Denies body ache(s), Denies chills, Denies fever(s), Denies headache(s) and Denies weakness Eyes: Eyes: Reports no additional eye complaints and Denies change in vision ENT: Reports system reviewed and no additional complaints, except as documented, Denies dizziness, Denies headache(s), Denies nasal congestion, Denies nasal discharge and Denies neck pain Cardiovascular: Cardiovascular: Reports no additional cardiovascular complaints, Denies chest pain, Denies leg edema and Denies dyspnea Respiratory: Respiratory: Reports no additional respiratory complaints, Denies cough and Denies dyspnea Gastrointestinal: Gastrointestinal: Reports no additional gastrointestinal complaints, Denies abdominal pain, Denies diarrhea, Denies nausea and Denies vomiting Genitourinary: Genitourinary: Denies urinary incontinence Musculoskeletal: Musculoskeletal: Reports no additional musculoskeletal complaints, Denies back pain, Denies arthralgias, Denies joint swelling, Denies neck pain, Denies numbness and Denies tingling Integumentary/Breasts: Skin/Breast: Reports system reviewed and no additional complaints, except as docu and Denies rash Neurologic: Reports system reviewed and no additional complaints, except as documented, Denies Abnormal speech present, Denies dizziness, Denies headache(s), Denies numbness, Denies tingling and Denies weakness Psychiatric: Psychiatric: Reports depression, Reports visual hallucinations and Reports suicidal ideation [facility] Past Medical History Attestation statement: The following information was validated with the patient. Source: old records reviewed and nursing notes reviewed Medical History Anxiety Asthma-COPD overlap syndrome Back pain Bipolar II disorder Chronic bronchitis with wheezing Depression Diabetes GERD (gastroesophageal reflux disease) Gout Hallucination, visual Hyperhidrosis Neuropathy Pneumonitis Post traumatic stress disorder (PTSD) PTSD (post-traumatic stress disorder) Sarcoidosis Surgical History History of bronchoscopy Hx of colonoscopy Family History Family History Father Myocardial infarction Mother No problems noted. Social History Social History Household Members: None Housing: Apartment Do you presently have visiting nurse or other home services: No Alcohol intake: current Alcohol intake frequency: holidays/special occasions only Patient Tobacco Use Status: Current everyday Tobacco user Tobacco use type: Cigarette Cigarette Packs Per Day: 0 Cigarettes Per Day: 1 Years Smoked: 40 Smoked in Last 30 Days: Yes e-Cigarette/Vaping Use: Currently Using Second Hand Smoke Exposure: No Use of substances other than those prescribed or required for medical reasons: Yes Substance Use Type: Marijuana Advance Directives: No Advance Directives Information Provided: No service: No Physical Exam Vital Signs: Vital Signs: Last Vital Signs Temp 97.8 F 07/10/22 16:44 Pulse 64 07/10/22 16:44 Resp 16 07/10/22 16:44 BP 126/78 07/10/22 16:44 Pulse Ox 98 07/10/22 16:44 O2 Del Method 07/10/22 16:44 BMI result Body Mass Index 29.6 Const: General: cooperative, healthy appearing, comfortable and no acute distress Orientation/consciousness: patient oriented x3 Limitations: no limitations HEENT: Head: Yes normal to inspection Ears: hearing grossly normal bilaterally General nose exam: Normal external nose present Face and sinus: Yes normal facial exam Mouth: Normal oral and palatal mucosa present Throat: Yes posterior oropharynx normal Eyes: General: appearance normal, both eyes and all related structures Pupils: Equal, round and reactive pupils present Neck: Neck: Yes normal visual inspection Chest: Chest palpation & inspection: normal inspection of the chest Resp: Effort & Inspection: normal respiratory effort Auscultation: clear to auscultation bilaterally Cardio: Rate: regular rate Rhythm: regular rhythm Peripheral pulses: Peripheral pulses 2+ throughout GI: Inspection: Yes normal to inspection Palpation (GI): Soft to palpation and nontender Auscultation: normal bowel sounds Back/Spine/Pelvis: Thoracic/Lumbar Spine: thoracic and lumbar spine normal to inspection Skin: General skin exam: no rashes or lesions noted Neuro: General: patient oriented x3, no focal motor deficits and normal sensation to monofilament Cranial nerves: Yes CN's II-XII intact bilaterally and Yes Equal, round and reactive pupils present Cognition (Neuro): normal cognition Speech: No Abnormal speech present Gait exam (Neuro): Normal gait present Motor exam (neuro): 5/5 motor strength present throughout Extrem: General: Yes normal to inspection Course Course Course Narrative: blood glucose is 442. Patient has no gap. Tells me since being discharged from a psychiatric unit he has been very confused which diabetes medications he should be taking and because of this he has not been very compliant. Patient will be given subcu lispro. Pharmacy to verify his medications so we may reconciled last Reevaluation(s) Reevaluation #1: 1820- Sign-out to jeana COHEN pending repeat blood sugar. Patient placed in physican observation pending disposition MDM - Psych MDM Narrative Medical decision making narrative: 61-year-old male with a history of PTSD, anxiety and depression here with 1 week of nightmares, flashbacks, hallucinations or visual and suicidal thoughts with no plan. No concern for acute ingestion or trauma. No physical complaints. Patient will need labs, drug screen, COVID screen, crisis evaluation. Medical Records Attestation: I reviewed the patient's medical records. Lab Data Attestation: I reviewed the patient's lab results. Result diagrams: 07/10/22 16:36 07/10/22 16:36 Labs: Lab Results 07/10/22 07/10/22 07/10/22 Range/Units 16:36 16:36 16:36 WBC 5.6 (4.8-10.8) X10*3/uL RBC 4.44 L (4.60-5.80) X10*6/uL Hgb 14.0 (14.0-18.0) g/dl Hct 40.1 L (42.0-52.0) % MCV 90.3 (80.0-98.0) fL MCH 31.5 (27.0-33.0) pg MCHC 34.9 (31.0-36.0) g/dl RDW 12.8 (11.0-16.0) % Plt Count 166 (160-400) X10*3/uL MPV 11.5 (9.4-12.4) fL Immature Gran % (Auto) 0.9 H (0.0-0.4) % Neut % (Auto) 55.2 (45-73) % Lymph % (Auto) 36.3 (20-40) % Gooding % (Auto) 5.7 (2-11) % Eos % (Auto) 1.4 (0-4) % Baso % (Auto) 0.5 (0-2) % Lymph # (Auto) 2.0 (1.2-4.9) X10*3/uL Gooding # (Auto) 0.3 (0.1-1.2) X10*3/uL Eos # (Auto) 0.1 (0.0-0.4) X10*3/uL Baso # (Auto) 0.0 (0.0-0.2) X10*3/uL Abs Immat Gran (auto) 0.05 H (0.00-0.03) X10*3/uL Absolute Neuts (auto) 3.1 (2.0-8.3) x10*3/uL Absolute Nucleated RBC 0.000 (0.0-0.012) X10*3/uL Nucleated RBC % (auto) 0.0 (0.0-0.2) /100WBC Sodium 135 (135-145) mmol/L Potassium 4.3 (3.3-5.1) mmol/L Chloride 99 (96-108) mmol/L Carbon Dioxide 23 (22-29) mmol/L Anion Gap 17 (12-20) BUN 10 D (9-16) mg/dL Creatinine 1.10 (0.5-1.4) mg/dL Estim Creat Clear Calc 87.0 Estimated GFR > 60 Random Glucose 442 H* (60-115) mg/dL Calcium 8.7 (8.4-10.2) mg/dL Total Bilirubin 0.8 (0.0-1.0) mg/dL Direct Bilirubin 0.3 (0.0-0.5) mg/dL AST 14 (5-37) U/L ALT 24 (0-40) U/L Alkaline Phosphatase 151 H (39-117) U/L Total Protein 7.3 (6.5-8.0) g/dL Albumin 4.2 (3.5-5.0) g/dL Urine Opiates Screen (Not Detect) Urine Fentanyl Screen (Not Detect) Ur Barbiturates Screen (Not Detect) Ur Phencyclidine Scrn (Not Detect) Ur Amphetamines Screen (Not Detect) U Benzodiazepines Scrn (Not Detect) Urine Cocaine Screen (Not Detect) U Marijuana (THC) Screen (Not Detect) Ethyl Alcohol < 10 mg/dL COVID-19 (PRECIOUS) Negative (Negative) COVID-19 Clin Com See Note 07/10/22 Range/Units 16:36 WBC (4.8-10.8) X10*3/uL RBC (4.60-5.80) X10*6/uL Hgb (14.0-18.0) g/dl Hct (42.0-52.0) % MCV (80.0-98.0) fL MCH (27.0-33.0) pg MCHC (31.0-36.0) g/dl RDW (11.0-16.0) % Plt Count (160-400) X10*3/uL MPV (9.4-12.4) fL Immature Gran % (Auto) (0.0-0.4) % Neut % (Auto) (45-73) % Lymph % (Auto) (20-40) % Gooding % (Auto) (2-11) % Eos % (Auto) (0-4) % Baso % (Auto) (0-2) % Lymph # (Auto) (1.2-4.9) X10*3/uL Gooding # (Auto) (0.1-1.2) X10*3/uL Eos # (Auto) (0.0-0.4) X10*3/uL Baso # (Auto) (0.0-0.2) X10*3/uL Abs Immat Gran (auto) (0.00-0.03) X10*3/uL Absolute Neuts (auto) (2.0-8.3) x10*3/uL Absolute Nucleated RBC (0.0-0.012) X10*3/uL Nucleated RBC % (auto) (0.0-0.2) /100WBC Sodium (135-145) mmol/L Potassium (3.3-5.1) mmol/L Chloride (96-108) mmol/L Carbon Dioxide (22-29) mmol/L Anion Gap (12-20) BUN (9-16) mg/dL Creatinine (0.5-1.4) mg/dL Estim Creat Clear Calc Estimated GFR Random Glucose (60-115) mg/dL Calcium (8.4-10.2) mg/dL Total Bilirubin (0.0-1.0) mg/dL Direct Bilirubin (0.0-0.5) mg/dL AST (5-37) U/L ALT (0-40) U/L Alkaline Phosphatase (39-117) U/L Total Protein (6.5-8.0) g/dL Albumin (3.5-5.0) g/dL Urine Opiates Screen Not Detected (Not Detect) Urine Fentanyl Screen Not Detected (Not Detect) Ur Barbiturates Screen Not Detected (Not Detect) Ur Phencyclidine Scrn Not Detected (Not Detect) Ur Amphetamines Screen Not Detected (Not Detect) U Benzodiazepines Scrn Not Detected (Not Detect) Urine Cocaine Screen Not Detected (Not Detect) U Marijuana (THC) Screen POSITIVE H (Not Detect) Ethyl Alcohol mg/dL COVID-19 (PRECIOUS) (Negative) COVID-19 Clin Com Discharge Plan Discharge Clinical Impression: Acute post-traumatic stress disorder Patient Disposition: Still a Patient Prescriptions: No Action valacyclovir 500 mg tablet 1 tab PO BID Rx Instructions: x 3 days hydrocortisone 1 % cream 1 appl topical BID clotrimazole 1 % cream 1 applic topical BID Spiriva with HandiHaler 18 mcg Capsule, W/Inhalation Device 18 mcg inhalation RDAILY Qty: 90 1RF albuterol sulfate 2.5 mg /3 mL (0.083 %) Solution For Nebulization 2.5 mg inhalation Q4H PRN (Reason: shortness of breath or wheezing) Qty: 90 2RF gabapentin 400 mg Capsule 800 mg PO TID Qty: 180 2RF prazosin 5 mg Capsule 10 mg PO BEDTIME Qty: 60 2RF Protocol: Hold for SBP< HOLD for SBP < : 90 prazosin 5 mg Capsule 5 mg PO DAILY Qty: 30 2RF Protocol: Hold for SBP< HOLD for SBP < : 90 buspirone 10 mg Tablet 20 mg PO TID Qty: 180 2RF albuterol sulfate [Ventolin HFA] 90 mcg/actuation Hfa Aerosol Inhaler 2 puff inhalation Q4H PRN (Reason: bronchospasm) Qty: 6.7 2RF duloxetine 60 mg Capsule,Delayed Release(Dr/Ec) 60 mg PO BID Qty: 60 2RF insulin glargine [Lantus U-100 Insulin] 100 unit/mL Solution 20 unit subcut BEDTIME Qty: 10 2RF (DME) insulin syringe-needle U-100 [Insulin Syringe] 1 mL 29 gauge x 1/2 syringe See Rx Instructions .Route Qty: 100 0RF Rx Instructions: As directed clonazepam [Klonopin] 0.5 mg tablet 0.5 mg PO BID Qty: 60 1RF (DME) lancets [TRUEplus Lancets] 33 gauge misc See Rx Instructions Not Applicable BID Qty: 100 Rx Instructions: As directed (DME) FreeStyle Lite Strips Strip See Rx Instructions Not Applicable BID Qty: 10 Rx Instructions: As directed
[2022-07-10 16:44] VITALS: BP 126/78; PULSE 64; RESP 16; TEMP 36.6; O2SAT 98
[2022-07-10 16:44] LABS: MANUAL DIFF FLAG NO
[2022-07-10 16:46] LABS: Basophils Percent Auto 0.5 % (0-2); Eosinophils Absolute Auto 0.1 X10*3/uL (0.0-0.4); Eosinophils Percent Auto 1.4 % (0-4); Hematocrit 40.1 % (42.0-52.0); Imm Gran Abs Auto 0.05 X10*3/uL (0.00-0.03); Imm Gran Pct Auto 0.9 % (0.0-0.4); Lymphocytes Percent Auto 36.3 % (20-40); Mean Corpuscular HGB Conc 34.9 g/dl (31.0-36.0); Mean Corpuscular Hemoglobin 31.5 pg (27.0-33.0); Mean Corpuscular Volume 90.3 fL (80.0-98.0); Mean Platelet Volume 11.5 fL (9.4-12.4); Monocytes Absolute Auto 0.3 X10*3/uL (0.1-1.2); Monocytes Percent Auto 5.7 % (2-11); Neutrophils Absolute Auto 3.1 x10*3/uL (2.0-8.3); Neutrophils Percent Auto 55.2 % (45-73); Platelet Count 166 X10*3/uL (160-400); Red Blood Count 4.44 X10*6/uL (4.60-5.80); Red Cell Distribution Width 12.8 % (11.0-16.0); White Blood Count 5.6 X10*3/uL (4.8-10.8)
[2022-07-10 17:03] LABS: COVID-19 Test Negative (Negative)
[2022-07-10 17:09] LABS: Amphetamine Screen Urine Not Detected (Not Detect); Barbiturates, Urine Not Detected (Not Detect); Benzodiazepines Screen Urine Not Detected (Not Detect); Cannabinoid Screen Urine POSITIVE (Not Detect); Cocaine Screen Urine Not Detected (Not Detect); Fentanyl, urine Not Detected (Not Detect); Opiate Screen Urine Not Detected (Not Detect); Phencyclidine Screen Urine Not Detected (Not Detect)
[2022-07-10 17:17] LABS: Alanine Aminotransferase 24 U/L (0-40); Albumin Level 4.2 g/dL (3.5-5.0); Alkaline Phosphatase 151 U/L (39-117); Anion Gap 17 (12-20); Aspartate Amino Transferase 14 U/L (5-37); Bilirubin Direct 0.3 mg/dL (0.0-0.5); Bilirubin Total 0.8 mg/dL (0.0-1.0); Blood Urea Nitrogen 10 mg/dL (9-16); Calcium 8.7 mg/dL (8.4-10.2); Carbon Dioxide 23 mmol/L (22-29); Chloride 99 mmol/L (96-108); Estimated Glomerular Filt Rate > 60; Ethanol < 10 mg/dL; Potassium 4.3 mmol/L (3.3-5.1); Sodium 135 mmol/L (135-145); Total Protein 7.3 g/dL (6.5-8.0)
--- NOTE | 2022-07-10 17:46 | PHA.MEDREC ---
Pharmacy Consult ? Medication Reconciliation Pharmacy has completed the medication reconciliation. Patient had new prescipition at pharmacy from [facility] PCP; valacyclovir, clotrimazole and hydrocortisone. Patient reports that he stopped his insulin and does not want it anymore. Since BS were high PA Shaunna wanted me to keep on list so it could be continued. Patient is no longer taking Trelegy. Mony Carlos, PharmD
[2022-07-10] MEDS: Insulin Lispro 100 UNIT/ML 3 ML VIAL 12 UNIT SUBCUT (18:13)
[2022-07-10] MEDS: Gabapentin 400 MG CAPSULE 800 MG PO (21:35)
[2022-07-10] MEDS: clonazePAM 0.5 MG TABLET PO (21:35)
[2022-07-10] MEDS: busPIRone HCl 10 MG TABLET 20 MG PO (21:35)
[2022-07-10] MEDS: Insulin Glargine,Hum.rec.anlog 100 UNIT/ML 10 ML VIAL 20 UNIT SUBCUT (21:35)
[2022-07-10] MEDS: DULoxetine HCl 60 MG CAPSULE.DR PO (21:36)
[2022-07-10] MEDS: Prazosin HCL 5 MG CAPSULE 10 MG PO (21:36)
[2022-07-10 21:42] LABS: Glucose, Whole Blood 210 mg/dL (60-115)
[2022-07-10] MEDS: Ibuprofen 600 MG TABLET PO (21:47)
[2022-07-10 21:48] VITALS: BP 141/81; PULSE 75; RESP 18; TEMP 36.4; O2SAT 99
[2022-07-10] MEDS: valACYclovir HCL 500 MG TABLET PO (22:02)
[2022-07-10] MEDS: Insulin Lispro 100 UNIT/ML 3 ML VIAL SUBCUT (22:13)
[2022-07-10] MEDS: Hydrocortisone 1 % Cream 28.35 GM TUBE 1 APPL TOPICAL (22:14)
[2022-07-10] MEDS: Clotrimazole 1 % Cream 15 GM TUBE 1 APPL TOPICAL (22:14)
--- NOTE | 2022-07-11 | ECG_ITS ---
Test Reason : med clearance Blood Pressure : / mmHG Vent. Rate : 069 BPM Atrial Rate : 069 BPM P-R Int : 182 ms QRS Dur : 102 ms QT Int : 420 ms P-R-T Axes : 054 011 018 degrees QTc Int : 450 ms Normal sinus rhythm Early repolarization Normal ECG When compared with ECG of 15-JUN-2022 15:17, No significant change was found Referred By: Sweta Girard Electronically Signed By:UDAY HARRIS
[2022-07-11 06:47] LABS: Glucose Random 442 mg/dL (60-115)
--- NOTE | 2022-07-11 07:13 | PC.NURSE ---
Patient slept through the night, no distress observed/reported, medication compliant, behavior non concerning, disposition per [facility] is section 12 inpatient bed search, VSS, will continue to monitor.
[2022-07-11 07:20] LABS: Glucose, Whole Blood 269 mg/dL (60-115)
[2022-07-11] MEDS: Insulin Lispro 100 UNIT/ML 3 ML VIAL SUBCUT ×4 (07:31→21:21)
--- NOTE | 2022-07-11 07:33 | PC.NURSE ---
patient appears to remain at rest at present respirations are even and unlabored patient appears in no distress
[2022-07-11] MEDS: DULoxetine HCl 60 MG CAPSULE.DR PO ×2 (09:45→21:23)
[2022-07-11] MEDS: clonazePAM 0.5 MG TABLET PO ×2 (09:45→21:23)
[2022-07-11] MEDS: busPIRone HCl 10 MG TABLET 20 MG PO ×3 (09:45→21:24)
[2022-07-11] MEDS: Prazosin HCL 5 MG CAPSULE PO (09:46)
[2022-07-11] MEDS: Gabapentin 400 MG CAPSULE 800 MG PO ×3 (09:46→21:23)
[2022-07-11] MEDS: Clotrimazole 1 % Cream 15 GM TUBE 1 APPL TOPICAL (09:46)
[2022-07-11] MEDS: Hydrocortisone 1 % Cream 28.35 GM TUBE 1 APPL TOPICAL (09:46)
[2022-07-11] MEDS: Ibuprofen 600 MG TABLET PO (09:50)
[2022-07-11] MEDS: valACYclovir HCL 500 MG TABLET PO ×2 (10:38→21:24)
[2022-07-11 12:31] LABS: Glucose, Whole Blood 242 mg/dL (60-115)
[2022-07-11] MEDS: Benzocaine 20 % Oral Gel 9 GM TUBE 1 APPL MUCOUS MEM ×2 (13:12→22:53)
[2022-07-11 16:47] LABS: Glucose, Whole Blood 346 mg/dL (60-115)
[2022-07-11] MEDS: hydrOXYzine HCL 25 MG TABLET PO (16:59)
--- NOTE | 2022-07-11 17:33 | PC.NURSE ---
Dick has been admitted to the floor after having thoughts of self harm at home. Patient walked himself to the ED, he knows that when he doesnt sleep his symptoms get much worse, and he had not slept in 3 days. Patient has history of inpatient psych admissions at this facility. Dick is on 15 mins checks. He denies SI at time of arrival to the floor. He signed a conditional voluntary. Dick has schizo affective disorder with auditory hallucinations that sometimes command him to hurt himself. Has a moderate amount of anxiety, 6/10. Dick is a type 2 diabetic. He is also taking amoxicillin as prophylactic treatment for his mouth, he has two chipped teeth on the right side of his mouth.
[2022-07-11 17:51] VITALS: BP 141/81; PULSE 75; RESP 18; O2SAT 99
[2022-07-11] MEDS: Acetaminophen 325 MG TABLET 650 MG PO (19:35)
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
[2022-07-11 21:14] LABS: Glucose, Whole Blood 355 mg/dL (60-115)
[2022-07-11] MEDS: Insulin Glargine,Hum.rec.anlog 100 UNIT/ML 10 ML VIAL 20 UNIT SUBCUT (21:20)
[2022-07-11 21:21] VITALS: BP 147/80; PULSE 76; RESP 18; TEMP 36.4; O2SAT 99
[2022-07-11] MEDS: Prazosin HCL 5 MG CAPSULE 10 MG PO (21:22)
[2022-07-11] MEDS: risperiDONE 0.5 MG TABLET PO (21:23)
[2022-07-11] MEDS: Amoxicillin 500 MG CAPSULE PO (21:24)
[2022-07-11] MEDS: Ibuprofen 800 MG TABLET PO (21:24)
[2022-07-11 23:42] VITALS: BMI 29.1
[2022-07-12] MEDS: Benzocaine 20 % Oral Gel 9 GM TUBE 1 APPL MUCOUS MEM ×3 (03:52→21:45)
[2022-07-12] MEDS: Acetaminophen 325 MG TABLET 650 MG PO (03:52)
[2022-07-12 08:29] LABS: Glucose, Whole Blood 241 mg/dL (60-115)
[2022-07-12] MEDS: DULoxetine HCl 60 MG CAPSULE.DR PO ×2 (08:37→21:43)
[2022-07-12] MEDS: clonazePAM 0.5 MG TABLET PO (08:37)
[2022-07-12] MEDS: Gabapentin 400 MG CAPSULE 800 MG PO ×3 (08:38→21:43)
[2022-07-12] MEDS: Prazosin HCL 5 MG CAPSULE PO (08:38)
[2022-07-12] MEDS: busPIRone HCl 10 MG TABLET 20 MG PO ×3 (08:38→21:43)
[2022-07-12] MEDS: risperiDONE 0.5 MG TABLET PO (08:38)
[2022-07-12] MEDS: Amoxicillin 500 MG CAPSULE PO ×3 (08:38→21:43)
[2022-07-12] MEDS: valACYclovir HCL 500 MG TABLET PO ×2 (08:38→21:45)
[2022-07-12] MEDS: Insulin Lispro 100 UNIT/ML 3 ML VIAL SUBCUT ×4 (08:40→21:41)
[2022-07-12 09:08] VITALS: BP 128/74; PULSE 77; RESP 16; TEMP 36.3; O2SAT 98
[2022-07-12 09:33] LABS: Estimated Average Glucose 229 mg/dL; Hemoglobin A1c % 9.6 %
[2022-07-12 09:54] LABS: Alanine Aminotransferase 20 U/L (0-40); Albumin Level 3.8 g/dL (3.5-5.0); Alkaline Phosphatase 126 U/L (39-117); Anion Gap 15 (12-20); Aspartate Amino Transferase 14 U/L (5-37); Bilirubin Total 0.7 mg/dL (0.0-1.0); Blood Urea Nitrogen 15 mg/dL (9-16); Calcium 8.7 mg/dL (8.4-10.2); Carbon Dioxide 23 mmol/L (22-29); Chloride 104 mmol/L (96-108); Cholesterol 252 mg/dL; Creatinine Clr Calc Pharmacy 110.5; Estimated Glomerular Filt Rate > 60; Glucose Fasting 252 mg/dL (60-99); HDL Cholesterol 44 mg/dL; LDL Cholesterol Calculated 165 mg/dl; Potassium 4.1 mmol/L (3.3-5.1); Sodium 138 mmol/L (135-145); Total Protein 6.4 g/dL (6.5-8.0); Triglycerides 217 mg/dL
[2022-07-12 11:01] LABS: Folate 10.3 ng/mL (> or = 4.0); Vitamin B12 291 pg/mL (200-900)
[2022-07-12] MEDS: Ibuprofen 800 MG TABLET PO ×2 (11:19→21:44)
[2022-07-12] MEDS: Clotrimazole 1 % Cream 15 GM TUBE 1 APPL TOPICAL ×2 (12:02→21:45)
[2022-07-12 13:09] LABS: Glucose, Whole Blood 341 mg/dL (60-115)
[2022-07-12 16:51] LABS: Glucose, Whole Blood 293 mg/dL (60-115)
--- NOTE | 2022-07-12 17:15 | P.PNPSI_ITS ---
Subjective Subjective Date of Service: 07/12/22 Reason For Visit: SI Subjective Notes: Gee Warning and Conditional Voluntary Healthcare Proxy: No Guardianship: No Medical Problems Affecting Mental Status: No Interim History: I evaluated the pt this evening and upon interview, he reports ?last night I woke up román scared,? had a nightmare, woke up with ?negative thoughts.? Says he took a nap, which helped. He is in ?a lot of pain? due to dental issue. Says he needs all his lower teeth removed and this is depressing for him. Still sees shadows.? Medication Compliance: Yes Side effects from medications: No Attending Groups: Intermittent Review of Systems Acute medical concerns: No Medical Review of Systems: unchanged Mental Status Exam Mental Status Exam Narrative: A&O. Large body stature, okay grooming, hospital attire. Good eye contact, attentive. No Tics or Tremors. No abnormal involuntary movements. Calm, cooperative, engaged. Non-pressured speech, spontaneous with regular rate and rhythm, normal volume and prosody. No prolonged speech latency or dysarthria. Mood is ?depressed,? affect is anxious. Denies SI/SIB/HI upon inquiry. Endorses VH. Currently denies AH or delusional thought content. Thoughts are coherent, organized. No known cognitive or memory impairment. Insight/ Judgment fair and adequate. Diagnostics Vital Signs (24Hr): Vital Signs - 24 hr 07/11/22 17:51 07/11/22 21:21 07/12/22 09:08 Temperature 97.6 F 97.4 F Pulse Rate 75 76 77 Respiratory Rate 18 18 16 Blood Pressure 141/81 H 147/80 H 128/74 Pulse Oximetry 99 99 98 Oxygen Delivery Method Room Air Room Air Room Air BMI result Body Mass Index 29.1 Labs Results: 07/10/22 16:36 07/12/22 08:34 Labs: Laboratory Results - last 48 hr 07/10/22 07/10/22 07/11/22 16:36 21:28 07:16 Sodium 135 Potassium 4.3 Chloride 99 Carbon Dioxide 23 Anion Gap 17 BUN 10 D Creatinine 1.10 Estim Creat Clear Calc 87.0 Estimated GFR > 60 POC Glucose 210 H 269 H Random Glucose 442 H* Fasting Glucose Estimat Average Glucose Hemoglobin A1c % Calcium 8.7 Total Bilirubin 0.8 Direct Bilirubin 0.3 AST 14 ALT 24 Alkaline Phosphatase 151 H Total Protein 7.3 Albumin 4.2 Triglycerides Cholesterol LDL Cholesterol, Calc HDL Cholesterol Vitamin B12 Folate Ethyl Alcohol < 10 07/11/22 07/11/22 07/11/22 12:26 16:42 21:10 Sodium Potassium Chloride Carbon Dioxide Anion Gap BUN Creatinine Estim Creat Clear Calc Estimated GFR POC Glucose 242 H 346 H 355 H* Random Glucose Fasting Glucose Estimat Average Glucose Hemoglobin A1c % Calcium Total Bilirubin Direct Bilirubin AST ALT Alkaline Phosphatase Total Protein Albumin Triglycerides Cholesterol LDL Cholesterol, Calc HDL Cholesterol Vitamin B12 Folate Ethyl Alcohol 07/12/22 07/12/22 07/12/22 08:07 08:34 08:34 Sodium 138 Potassium 4.1 Chloride 104 Carbon Dioxide 23 Anion Gap 15 BUN 15 Creatinine 0.86 Estim Creat Clear Calc 110.5 Estimated GFR > 60 POC Glucose 241 H Random Glucose Fasting Glucose 252 H Estimat Average Glucose 229 Hemoglobin A1c % 9.6 Calcium 8.7 Total Bilirubin 0.7 Direct Bilirubin AST 14 ALT 20 Alkaline Phosphatase 126 H Total Protein 6.4 L Albumin 3.8 Triglycerides 217 Cholesterol 252 LDL Cholesterol, Calc 165 HDL Cholesterol 44 Vitamin B12 Folate Ethyl Alcohol 07/12/22 07/12/22 07/12/22 08:34 13:06 16:45 Sodium Potassium Chloride Carbon Dioxide Anion Gap BUN Creatinine Estim Creat Clear Calc Estimated GFR POC Glucose 341 H 293 H Random Glucose Fasting Glucose Estimat Average Glucose Hemoglobin A1c % Calcium Total Bilirubin Direct Bilirubin AST ALT Alkaline Phosphatase Total Protein Albumin Triglycerides Cholesterol LDL Cholesterol, Calc HDL Cholesterol Vitamin B12 291 Folate 10.3 Ethyl Alcohol Medications Medications Current Medications Acetaminophen (Acetaminophen 325 Mg Tablet) 650 mg PO Q6H PRN PRN Reason: Headache/Pain Mild Scale (1-3) Last Admin: 07/12/22 03:52 Dose: 650 mg Al Hydroxide/Mg Hydroxide (Magnesium Hydrox/Alum Hydrox 30 Ml Oral.Susp) 30 ml PO Q6H PRN PRN Reason: Heartburn/Nausea Albuterol Sulfate (Albuterol Sulfate (0.083%) 2.5 Mg/3 Ml Vial.Neb) 2.5 mg INHALE Q4H PRN PRN Reason: shortness of breath or wheezing Albuterol Sulfate (Albuterol Sulfate 90 Mcg 8 Gm Inhaler) 2 puff INHALE Q4H PRN PRN Reason: bronchospasm Amoxicillin (Amoxicillin 500 Mg Capsule) 500 mg PO TID [facility] Stop: 07/18/22 15:01 Last Admin: 07/12/22 14:16 Dose: 500 mg Benzocaine (Benzocaine 20 % Oral Gel 9 Gm Tube) 1 appl MUCOUS MEM QID PRN PRN Reason: dental pain Last Admin: 07/12/22 11:18 Dose: 1 appl Buspirone HCl (Buspirone Hcl 10 Mg Tablet) 20 mg PO TID [facility] Last Admin: 07/12/22 14:15 Dose: 20 mg Clonazepam (Clonazepam 0.5 Mg Tablet) 0.5 mg PO BID [facility] Last Admin: 07/12/22 08:37 Dose: 0.5 mg Clotrimazole (Clotrimazole 1 % Cream 15 Gm Tube) 1 appl TOPICAL BID [facility]; Protocol Last Admin: 07/12/22 12:02 Dose: 1 appl Duloxetine HCl (Duloxetine Hcl 60 Mg Capsule.Dr) 60 mg PO BID [facility] Last Admin: 07/12/22 08:37 Dose: 60 mg Gabapentin (Gabapentin 400 Mg Capsule) 800 mg PO TID [facility] Last Admin: 07/12/22 14:16 Dose: 800 mg Hydrocortisone (Hydrocortisone 1 % Cream 28.35 Gm Tube) 1 appl TOPICAL BID [facility]; Protocol Last Admin: 07/12/22 12:24 Dose: Not Given Hydroxyzine HCl (Hydroxyzine Hcl 25 Mg Tablet) 25 mg PO Q6H PRN PRN Reason: Anxiety Last Admin: 07/11/22 16:59 Dose: 25 mg Ibuprofen (Ibuprofen 800 Mg Tablet) 800 mg PO Q8H PRN PRN Reason: mod-severe pain Last Admin: 07/12/22 11:19 Dose: 800 mg Insulin Glargine (Insulin Glargine,Hum.Rec.Anlog 100 Unit/Ml 10 Ml Vial) 20 unit SUBCUT BEDTIME [facility] Last Admin: 07/11/22 21:20 Dose: 20 unit Insulin Human Lispro (Insulin Lispro 100 Unit/Ml 3 Ml Vial) 0 unit SUBCUT QIDACHS [facility]; Protocol Last Admin: 07/12/22 13:11 Dose: 8 unit Magnesium Hydroxide (Milk Of Magnesia 30 Ml Oral.Susp) 30 ml PO DAILY PRN PRN Reason: Constipation Pharmacy Consult (Consult Rx Perform Med Rec) 1 each MISCELLANE ONCE PRN PRN Reason: Consult order Prazosin HCl (Prazosin Hcl 5 Mg Capsule) 5 mg PO DAILY [facility]; Protocol Last Admin: 07/12/22 08:38 Dose: 5 mg Prazosin HCl (Prazosin Hcl 5 Mg Capsule) 10 mg PO BEDTIME [facility]; Protocol Last Admin: 07/11/22 21:22 Dose: 10 mg Risperidone (Risperidone 0.5 Mg Tablet) 0.5 mg PO BID [facility] Last Admin: 07/12/22 08:38 Dose: 0.5 mg Tiotropium [place] (Tiotropium [place] 18 Mcg Cap.W.Dev) 1 puff INHALE RDAILY [facility] Last Admin: 07/12/22 08:37 Dose: 1 puff Trazodone HCl (Trazodone Hcl 50 Mg Tablet) 50 mg PO BEDTIME PRN PRN Reason: Insomnia Valacyclovir HCl (Valacyclovir Hcl 500 Mg Tablet) 500 mg PO BID [facility] Stop: 07/13/22 09:01 Last Admin: 07/12/22 08:38 Dose: 500 mg Allergies Allergies Allergy/AdvReac Type Severity Reaction Status Date / Time No Known Allergies Allergy Verified 05/09/22 15:01 Assessment & Plan Assessment & Plan (1) Post traumatic stress disorder (PTSD): Status: Acute Code(s): F43.10 - Post-traumatic stress disorder, unspecified (2) Bipolar II disorder: Status: Acute Code(s): F31.81 - Bipolar II disorder Plan Dick is a 61 y.o. Male who carries a dx of PTSD and Bipolar II DO. He arrived to [facility] on 07/10/22 due to flashbacks, nightmares, VH of shadows, AH, agitation, poor sleep, and passive SI without plan or intent. He had recent psych admission to on 06/15- due to VH of a black shadow, which he said was new for him. During this admission, his olanzapine 2.5 mg QHS was d/c?d due to lack of benefit, started on buspar, which was titrated up to 20 mg TID for anxiety. However, pt is now denying benefit on his medications. 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 Plan: Pt reports lack of benefit on buspar, will start risperdal 0.5 mg BID to target anxiety, hypervigilance, perceptual disturbances, and agitation. Will consider discontinuing buspar if risperdal is effective. Pt needs referral for OP dental, will prescribe orajel and PRN motrin due to teeth breaking. He is also interested in trulicity, as he was on this in the past to control blood glucose, this is not on formulary but may consider prescribing on discharge. 07/12: Increase risperdal to 1 mg BID, will increase klonopin to 1 mg BID but again pt understands this will not be continued on discharge, discussed with OP provider. Q15 min safety checks, CV Monitor response to medications. Monitor for safety in the milieu. Discharge on stabilization. Patient seen. Chart reviewed. Discussed with team. Obtain collateral contact info?as needed I spent minutes with the patient and/or on the patient floor today, greater than?50% of which was spent counseling/coordinating care. Patient educated on: diagnosis, medication risk/benefits and therapeutic strategies Reason for contiued inpatient stay Substantial Risk for: med/psych decompensation
[2022-07-12] MEDS: hydrOXYzine HCL 25 MG TABLET PO (17:31)
[2022-07-12 21:40] LABS: Glucose, Whole Blood 315 mg/dL (60-115)
[2022-07-12] MEDS: Insulin Glargine,Hum.rec.anlog 100 UNIT/ML 10 ML VIAL 20 UNIT SUBCUT (21:42)
[2022-07-12] MEDS: clonazePAM 1 MG TABLET PO (21:44)
[2022-07-12] MEDS: risperiDONE 1 MG TABLET PO (21:44)
[2022-07-12] MEDS: Prazosin HCL 5 MG CAPSULE 10 MG PO (21:44)
[2022-07-12 21:51] VITALS: BP 148/81; PULSE 82; TEMP 36.6; O2SAT 100
[2022-07-13 07:00] VITALS: BMI 29.7
[2022-07-13 08:04] LABS: Glucose, Whole Blood 298 mg/dL (60-115)
[2022-07-13] MEDS: valACYclovir HCL 500 MG TABLET PO (08:14)
[2022-07-13] MEDS: Amoxicillin 500 MG CAPSULE PO ×3 (08:14→21:52)
[2022-07-13] MEDS: risperiDONE 1 MG TABLET PO ×2 (08:14→21:54)
[2022-07-13] MEDS: Gabapentin 400 MG CAPSULE 800 MG PO ×3 (08:14→21:54)
[2022-07-13] MEDS: clonazePAM 1 MG TABLET PO ×2 (08:15→21:54)
[2022-07-13] MEDS: Prazosin HCL 5 MG CAPSULE PO (08:15)
[2022-07-13] MEDS: DULoxetine HCl 60 MG CAPSULE.DR PO (08:15)
[2022-07-13] MEDS: Insulin Lispro 100 UNIT/ML 3 ML VIAL SUBCUT ×5 (08:45→21:51)
[2022-07-13] MEDS: busPIRone HCl 10 MG TABLET 20 MG PO ×2 (09:00→15:40)
[2022-07-13] MEDS: Clotrimazole 1 % Cream 15 GM TUBE 1 APPL TOPICAL ×2 (09:02→21:52)
[2022-07-13 10:36] VITALS: BP 129/76; PULSE 75; RESP 14; TEMP 36.6; O2SAT 100
[2022-07-13 11:59] LABS: Glucose, Whole Blood 484 mg/dL (60-115)
[2022-07-13] MEDS: hydrOXYzine HCL 25 MG TABLET PO (15:48)
[2022-07-13 17:08] LABS: Glucose, Whole Blood 303 mg/dL (60-115)
--- NOTE | 2022-07-13 17:24 | HO.PSYCHPN ---
Subjective Subjective Date of Service: 07/13/22 Reason For Visit: SI Subjective Notes: Gee Warning and Conditional Voluntary Healthcare Proxy: No Guardianship: No Medical Problems Affecting Mental Status: No Interim History: I evaluated the pt this evening and upon interview he reports he woke up at 5am ?with the same story,? i.e. nightmares, hyperarousal, ?heart was pounding.? Says his mood is ?good.? Pt reports consistent issues with certified alcohol and drug counselor awakening, he feels pain from the past, feels ?depressed.? He is able to fall asleep, but wakes up 2-3 times in the night. Anxiety is ?sometimes high,? says it ?drives me crazy.?? 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 Large body stature, okay grooming, hospital attire. Good eye contact, attentive. No Tics or Tremors. No abnormal involuntary movements. Calm, cooperative, engaged. Non-pressured speech, spontaneous with regular rate and rhythm, normal volume and prosody. No prolonged speech latency or dysarthria. Mood is ?depressed,? affect is anxious. Denies SI/SIB/HI upon inquiry. Endorses VH. Currently denies AH or delusional thought content. Thoughts are coherent, organized. No known cognitive or memory impairment. Insight/ Judgment fair and adequate. Diagnostics Vital Signs (24Hr): Vital Signs - 24 hr 07/12/22 21:51 07/13/22 10:36 Temperature 97.9 F 97.9 F Pulse Rate 82 75 Respiratory Rate 14 Blood Pressure 148/81 H 129/76 Pulse Oximetry 100 100 Oxygen Delivery Method Room Air Room Air BMI result Body Mass Index 29.7 Labs Results: 07/10/22 16:36 07/12/22 08:34 Labs: Laboratory Results - last 48 hr 07/11/22 07/12/22 07/12/22 21:10 08:07 08:34 Sodium 138 Potassium 4.1 Chloride 104 Carbon Dioxide 23 Anion Gap 15 BUN 15 Creatinine 0.86 Estim Creat Clear Calc 110.5 Estimated GFR > 60 POC Glucose 355 H* 241 H Fasting Glucose 252 H Estimat Average Glucose Hemoglobin A1c % Calcium 8.7 Total Bilirubin 0.7 AST 14 ALT 20 Alkaline Phosphatase 126 H Total Protein 6.4 L Albumin 3.8 Triglycerides 217 Cholesterol 252 LDL Cholesterol, Calc 165 HDL Cholesterol 44 Vitamin B12 Folate 07/12/22 07/12/22 07/12/22 08:34 08:34 13:06 Sodium Potassium Chloride Carbon Dioxide Anion Gap BUN Creatinine Estim Creat Clear Calc Estimated GFR POC Glucose 341 H Fasting Glucose Estimat Average Glucose 229 Hemoglobin A1c % 9.6 Calcium Total Bilirubin AST ALT Alkaline Phosphatase Total Protein Albumin Triglycerides Cholesterol LDL Cholesterol, Calc HDL Cholesterol Vitamin B12 291 Folate 10.3 07/12/22 07/12/22 07/13/22 16:45 21:26 07:51 Sodium Potassium Chloride Carbon Dioxide Anion Gap BUN Creatinine Estim Creat Clear Calc Estimated GFR POC Glucose 293 H 315 H 298 H Fasting Glucose Estimat Average Glucose Hemoglobin A1c % Calcium Total Bilirubin AST ALT Alkaline Phosphatase Total Protein Albumin Triglycerides Cholesterol LDL Cholesterol, Calc HDL Cholesterol Vitamin B12 Folate 07/13/22 07/13/22 11:54 17:02 Sodium Potassium Chloride Carbon Dioxide Anion Gap BUN Creatinine Estim Creat Clear Calc Estimated GFR POC Glucose 484 H* 303 H Fasting Glucose Estimat Average Glucose Hemoglobin A1c % Calcium Total Bilirubin AST ALT Alkaline Phosphatase Total Protein Albumin Triglycerides Cholesterol LDL Cholesterol, Calc HDL Cholesterol Vitamin B12 Folate Medications Medications Current Medications Acetaminophen (Acetaminophen 325 Mg Tablet) 650 mg PO Q6H PRN PRN Reason: Headache/Pain Mild Scale (1-3) Last Admin: 07/12/22 03:52 Dose: 650 mg Al Hydroxide/Mg Hydroxide (Magnesium Hydrox/Alum Hydrox 30 Ml Oral.Susp) 30 ml PO Q6H PRN PRN Reason: Heartburn/Nausea Albuterol Sulfate (Albuterol Sulfate (0.083%) 2.5 Mg/3 Ml Vial.Neb) 2.5 mg INHALE Q4H PRN PRN Reason: shortness of breath or wheezing Albuterol Sulfate (Albuterol Sulfate 90 Mcg 8 Gm Inhaler) 2 puff INHALE Q4H PRN PRN Reason: bronchospasm Amoxicillin (Amoxicillin 500 Mg Capsule) 500 mg PO TID [facility] Stop: 07/18/22 15:01 Last Admin: 07/13/22 15:40 Dose: 500 mg Benzocaine (Benzocaine 20 % Oral Gel 9 Gm Tube) 1 appl MUCOUS MEM QID PRN PRN Reason: dental pain Last Admin: 07/12/22 21:45 Dose: 1 appl Buspirone HCl (Buspirone Hcl 10 Mg Tablet) 20 mg PO TID [facility] Last Admin: 07/13/22 15:40 Dose: 20 mg Clonazepam (Clonazepam 1 Mg Tablet) 1 mg PO BID [facility] Last Admin: 07/13/22 08:15 Dose: 1 mg Clotrimazole (Clotrimazole 1 % Cream 15 Gm Tube) 1 appl TOPICAL BID [facility]; Protocol Last Admin: 07/13/22 09:02 Dose: 1 appl Duloxetine HCl (Duloxetine Hcl 60 Mg Capsule.Dr) 60 mg PO BID [facility] Last Admin: 07/13/22 08:15 Dose: 60 mg Gabapentin (Gabapentin 400 Mg Capsule) 800 mg PO TID [facility] Last Admin: 07/13/22 15:40 Dose: 800 mg Hydrocortisone (Hydrocortisone 1 % Cream 28.35 Gm Tube) 1 appl TOPICAL BID [facility]; Protocol Last Admin: 07/13/22 09:01 Dose: Not Given Hydroxyzine HCl (Hydroxyzine Hcl 25 Mg Tablet) 25 mg PO Q6H PRN PRN Reason: Anxiety Last Admin: 07/13/22 15:48 Dose: 25 mg Ibuprofen (Ibuprofen 800 Mg Tablet) 800 mg PO Q8H PRN PRN Reason: mod-severe pain Last Admin: 07/12/22 21:44 Dose: 800 mg Insulin Glargine (Insulin Glargine,Hum.Rec.Anlog 100 Unit/Ml 10 Ml Vial) 20 unit SUBCUT BEDTIME [facility] Last Admin: 07/12/22 21:42 Dose: 20 unit Insulin Human Lispro (Insulin Lispro 100 Unit/Ml 3 Ml Vial) 0 unit SUBCUT QIDACHS [facility]; Protocol Last Admin: 07/13/22 12:52 Dose: 10 unit Magnesium Hydroxide (Milk Of Magnesia 30 Ml Oral.Susp) 30 ml PO DAILY PRN PRN Reason: Constipation Pharmacy Consult (Consult Rx Perform Med Rec) 1 each MISCELLANE ONCE PRN PRN Reason: Consult order Prazosin HCl (Prazosin Hcl 5 Mg Capsule) 5 mg PO DAILY [facility]; Protocol Last Admin: 07/13/22 08:15 Dose: 5 mg Prazosin HCl (Prazosin Hcl 5 Mg Capsule) 10 mg PO BEDTIME [facility]; Protocol Last Admin: 07/12/22 21:44 Dose: 10 mg Risperidone (Risperidone 1 Mg Tablet) 1 mg PO BID [facility] Last Admin: 07/13/22 08:14 Dose: 1 mg Tiotropium [place] (Tiotropium [place] 18 Mcg Cap.W.Dev) 1 puff INHALE RDAILY [facility] Last Admin: 07/13/22 09:02 Dose: 1 puff Trazodone HCl (Trazodone Hcl 50 Mg Tablet) 50 mg PO BEDTIME PRN PRN Reason: Insomnia Allergies Allergies Allergy/AdvReac Type Severity Reaction Status Date / Time No Known Allergies Allergy Verified 05/09/22 15:01 Assessment & Plan Assessment & Plan (1) Post traumatic stress disorder (PTSD): Status: Acute Code(s): F43.10 - Post-traumatic stress disorder, unspecified (2) Bipolar II disorder: Status: Acute Code(s): F31.81 - Bipolar II disorder Plan Dick is a 61 y.o. Male who carries a dx of PTSD and Bipolar II DO. He arrived to [facility] [place] [facility] on 07/10/22 due to flashbacks, nightmares, VH of shadows, AH, agitation, poor sleep, and passive SI without plan or intent. He had recent psych admission to on 06/15- due to VH of a black shadow, which he said was new for him. During this admission, his olanzapine 2.5 mg QHS was d/c?d due to lack of benefit, started on buspar, which was titrated up to 20 mg TID for anxiety. However, pt is now denying benefit on his medications. 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 Plan: Pt reports lack of benefit on buspar, will start risperdal 0.5 mg BID to target anxiety, hypervigilance, perceptual disturbances, and agitation. Will consider discontinuing buspar if risperdal is effective. Pt needs referral for OP dental, will prescribe orajel and PRN motrin due to teeth breaking. He is also interested in trulicity, as he was on this in the past to control blood glucose, this is not on formulary but may consider prescribing on discharge. 07/12: Increase risperdal to 1 mg BID, will increase klonopin to 1 mg BID but again pt understands this will not be continued on discharge, discussed with OP provider. 07/13: Start remeron 15 mg QHS for sleep, anxiety, PTSD, may work in conjunction with cymbalta. Will also lower cymbalta to 90 mg QHS, as evidence base does not show benefit on doses above 60 mg and pt has not noticed difference, trying to avoid polypharm. Q15 min safety checks, CV Monitor response to medications. Monitor for safety in the milieu. Discharge on stabilization. Patient seen. Chart reviewed. Discussed with team. Obtain collateral contact info?as needed I spent minutes with the patient and/or on the patient floor today, greater than?50% of which was spent counseling/coordinating care. Patient educated on: diagnosis, medication risk/benefits and therapeutic strategies Reason for contiued inpatient stay Substantial Risk for: med/psych decompensation
[2022-07-13 21:27] LABS: Glucose, Whole Blood 304 mg/dL (60-115)
[2022-07-13 21:47] VITALS: BP 153/87; PULSE 74; TEMP 36.6; O2SAT 99
[2022-07-13] MEDS: Insulin Glargine,Hum.rec.anlog 100 UNIT/ML 10 ML VIAL 20 UNIT SUBCUT (21:51)
[2022-07-13] MEDS: Benzocaine 20 % Oral Gel 9 GM TUBE 1 APPL MUCOUS MEM (21:52)
[2022-07-13] MEDS: Mirtazapine 15 MG TABLET PO (21:53)
[2022-07-13] MEDS: Ibuprofen 800 MG TABLET PO (21:53)
[2022-07-13] MEDS: Prazosin HCL 5 MG CAPSULE 10 MG PO (21:54)
[2022-07-14] MEDS: hydrOXYzine HCL 25 MG TABLET PO ×2 (06:29→14:28)
[2022-07-14 08:51] VITALS: BP 139/75; PULSE 76; RESP 16; TEMP 36.3; O2SAT 98
[2022-07-14 09:06] LABS: Glucose, Whole Blood 270 mg/dL (60-115)
[2022-07-14] MEDS: Insulin Lispro 100 UNIT/ML 3 ML VIAL SUBCUT ×4 (09:14→21:08)
[2022-07-14] MEDS: Gabapentin 400 MG CAPSULE 800 MG PO ×3 (09:16→21:04)
[2022-07-14] MEDS: clonazePAM 1 MG TABLET PO ×2 (09:16→21:04)
[2022-07-14] MEDS: Prazosin HCL 5 MG CAPSULE PO (09:17)
[2022-07-14] MEDS: risperiDONE 1 MG TABLET PO (09:17)
[2022-07-14] MEDS: Amoxicillin 500 MG CAPSULE PO ×3 (09:18→21:03)
[2022-07-14] MEDS: Hydrocortisone 1 % Cream 28.35 GM TUBE 1 APPL TOPICAL (09:20)
[2022-07-14] MEDS: Clotrimazole 1 % Cream 15 GM TUBE 1 APPL TOPICAL ×2 (09:20→21:08)
[2022-07-14 12:46] LABS: Glucose, Whole Blood 378 mg/dL (60-115)
[2022-07-14] MEDS: Ibuprofen 800 MG TABLET PO (14:27)
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
[2022-07-14 17:49] LABS: Glucose, Whole Blood 308 mg/dL (60-115)
[2022-07-14 20:45] VITALS: BP 143/79; PULSE 78; RESP 16; TEMP 36.2; O2SAT 99
[2022-07-14 20:53] LABS: Glucose, Whole Blood 335 mg/dL (60-115)
[2022-07-14] MEDS: QUEtiapine Fumarate 100 MG TABLET PO (21:03)
[2022-07-14] MEDS: Mirtazapine 15 MG TABLET PO (21:04)
[2022-07-14] MEDS: Prazosin HCL 5 MG CAPSULE 10 MG PO (21:04)
[2022-07-14] MEDS: DULoxetine HCl 30 MG CAPSULE.DR 90 MG PO (21:05)
[2022-07-14] MEDS: Insulin Glargine,Hum.rec.anlog 100 UNIT/ML 10 ML VIAL 20 UNIT SUBCUT (21:09)
[2022-07-15] MEDS: hydrOXYzine HCL 25 MG TABLET PO ×2 (00:49→19:54)
[2022-07-15] MEDS: clonazePAM 1 MG TABLET PO ×3 (01:09→21:50)
[2022-07-15] MEDS: QUEtiapine Fumarate 100 MG TABLET PO (01:13)
[2022-07-15 06:30] LABS: Glucose, Whole Blood 369 mg/dL (60-115)
[2022-07-15] MEDS: Insulin Lispro 100 UNIT/ML 3 ML VIAL 10 UNIT SUBCUT (06:54)
[2022-07-15 09:00] VITALS: BP 119/74; PULSE 90; RESP 20; TEMP 36.4; O2SAT 97
--- NOTE | 2022-07-15 09:09 | HO.PSYCHPN ---
Subjective Subjective Date of Service: 07/15/22 Reason For Visit: SI Subjective Notes: Gee Warning Interim History: I spoke with pt's team and evaluated pt today. He says he feels calmer today, wants to continue with seroquel trial. Had to take repeat dose of seroquel last night for sleep, as he woke up with panic attack, tearful, says his nightmare felt so real. Took a total of 200 mg last night. Denies SI/SIB. Says he feels safe. Medication Compliance: Yes Side effects from medications: No Attending Groups: Intermittent Review of Systems Acute medical concerns: No Medical Review of Systems: unchanged Mental Status Exam Mental Status Exam Narrative: A&O. Large body stature, okay grooming, hospital attire. Good eye contact, attentive. No Tics or Tremors. No abnormal involuntary movements. Calm, cooperative, engaged. Non-pressured speech, spontaneous with regular rate and rhythm, normal volume and prosody. No prolonged speech latency or dysarthria. Mood is ?depressed,? affect is calmer. Denies SI/SIB/HI upon inquiry. Denies VH. Currently denies AH or delusional thought content. Thoughts are coherent, organized. No known cognitive or memory impairment. Insight/ Judgment fair and adequate. Diagnostics Vital Signs (24Hr): Vital Signs - 24 hr 07/14/22 20:45 Temperature 97.2 F Pulse Rate 78 Respiratory Rate 16 Blood Pressure 143/79 H Pulse Oximetry 99 Oxygen Delivery Method Room Air BMI result Body Mass Index 29.7 Labs Results: 07/10/22 16:36 07/12/22 08:34 Labs: Laboratory Results - last 48 hr 07/13/22 07/13/22 07/13/22 11:54 17:02 21:23 POC Glucose 484 H* 303 H 304 H 07/14/22 07/14/22 07/14/22 09:03 12:38 17:44 POC Glucose 270 H 378 H* 308 H 07/14/22 07/15/22 20:48 06:26 POC Glucose 335 H 369 H* Medications Medications Current Medications Acetaminophen (Acetaminophen 325 Mg Tablet) 650 mg PO Q6H PRN PRN Reason: Headache/Pain Mild Scale (1-3) Last Admin: 07/12/22 03:52 Dose: 650 mg Al Hydroxide/Mg Hydroxide (Magnesium Hydrox/Alum Hydrox 30 Ml Oral.Susp) 30 ml PO Q6H PRN PRN Reason: Heartburn/Nausea Albuterol Sulfate (Albuterol Sulfate (0.083%) 2.5 Mg/3 Ml Vial.Neb) 2.5 mg INHALE Q4H PRN PRN Reason: shortness of breath or wheezing Albuterol Sulfate (Albuterol Sulfate 90 Mcg 8 Gm Inhaler) 2 puff INHALE Q4H PRN PRN Reason: bronchospasm Amoxicillin (Amoxicillin 500 Mg Capsule) 500 mg PO TID [facility] Stop: 07/18/22 15:01 Last Admin: 07/14/22 21:03 Dose: 500 mg Benzocaine (Benzocaine 20 % Oral Gel 9 Gm Tube) 1 appl MUCOUS MEM QID PRN PRN Reason: dental pain Last Admin: 07/13/22 21:52 Dose: 1 appl Clonazepam (Clonazepam 1 Mg Tablet) 1 mg PO BID [facility] Last Admin: 07/14/22 21:04 Dose: 1 mg Clotrimazole (Clotrimazole 1 % Cream 15 Gm Tube) 1 appl TOPICAL BID [facility]; Protocol Last Admin: 07/14/22 21:08 Dose: 1 appl Duloxetine HCl (Duloxetine Hcl 30 Mg Capsule.Dr) 90 mg PO BEDTIME [facility] Last Admin: 07/14/22 21:05 Dose: 90 mg Gabapentin (Gabapentin 400 Mg Capsule) 800 mg PO TID [facility] Last Admin: 07/14/22 21:04 Dose: 800 mg Hydrocortisone (Hydrocortisone 1 % Cream 28.35 Gm Tube) 1 appl TOPICAL BID [facility]; Protocol Last Admin: 07/14/22 21:08 Dose: Not Given Hydroxyzine HCl (Hydroxyzine Hcl 25 Mg Tablet) 25 mg PO Q6H PRN PRN Reason: Anxiety Last Admin: 07/15/22 00:49 Dose: 25 mg Ibuprofen (Ibuprofen 800 Mg Tablet) 800 mg PO Q8H PRN PRN Reason: mod-severe pain Last Admin: 07/14/22 14:27 Dose: 800 mg Insulin Glargine (Insulin Glargine,Hum.Rec.Anlog 100 Unit/Ml 10 Ml Vial) 20 unit SUBCUT BEDTIME [facility] Last Admin: 07/14/22 21:09 Dose: 20 unit Insulin Human Lispro (Insulin Lispro 100 Unit/Ml 3 Ml Vial) 0 unit SUBCUT QIDACHS [facility]; Protocol Last Admin: 07/14/22 21:08 Dose: 8 unit Magnesium Hydroxide (Milk Of Magnesia 30 Ml Oral.Susp) 30 ml PO DAILY PRN PRN Reason: Constipation Mirtazapine (Mirtazapine 15 Mg Tablet) 15 mg PO BEDTIME [facility] Last Admin: 07/14/22 21:04 Dose: 15 mg Prazosin HCl (Prazosin Hcl 5 Mg Capsule) 5 mg PO DAILY [facility]; Protocol Last Admin: 07/14/22 09:17 Dose: 5 mg Prazosin HCl (Prazosin Hcl 5 Mg Capsule) 10 mg PO BEDTIME [facility]; Protocol Last Admin: 07/14/22 21:04 Dose: 10 mg Quetiapine Fumarate (Quetiapine Fumarate 100 Mg Tablet) 100 mg PO BEDTIME [facility] Last Admin: 07/15/22 01:13 Dose: 100 mg Tiotropium [place] (Tiotropium [place] 18 Mcg Cap.W.Dev) 1 puff INHALE RDAILY [facility] Last Admin: 07/14/22 09:19 Dose: 1 puff Allergies Allergies Allergy/AdvReac Type Severity Reaction Status Date / Time No Known Allergies Allergy Verified 05/09/22 15:01 Assessment & Plan Assessment & Plan (1) Post traumatic stress disorder (PTSD): Status: Acute Code(s): F43.10 - Post-traumatic stress disorder, unspecified (2) Bipolar II disorder: Status: Acute Code(s): F31.81 - Bipolar II disorder Plan Dick is a 61 y.o. Male who carries a dx of PTSD and Bipolar II DO. He arrived to [facility] on 07/10/22 due to flashbacks, nightmares, VH of shadows, AH, agitation, poor sleep, and passive SI without plan or intent. He had recent psych admission to on 06/15- due to VH of a black shadow, which he said was new for him. During this admission, his olanzapine 2.5 mg QHS was d/c?d due to lack of benefit, started on buspar, which was titrated up to 20 mg TID for anxiety. However, pt is now denying benefit on his medications. 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 Plan: Pt reports lack of benefit on buspar, will start risperdal 0.5 mg BID to target anxiety, hypervigilance, perceptual disturbances, and agitation. Will consider discontinuing buspar if risperdal is effective. Pt needs referral for OP dental, will prescribe orajel and PRN motrin due to teeth breaking. He is also interested in trulicity, as he was on this in the past to control blood glucose, this is not on formulary but may consider prescribing on discharge. 07/12: Increase risperdal to 1 mg BID, will increase klonopin to 1 mg BID but again pt understands this will not be continued on discharge, discussed with OP provider. 07/13: Start remeron 15 mg QHS for sleep, anxiety, PTSD, may work in conjunction with cymbalta. Will also lower cymbalta to 90 mg QHS, as evidence base does not show benefit on doses above 60 mg and pt has not noticed difference, trying to avoid polypharm. 07/14: Pt asking for something for sleep, will start seroquel 200 mg QHS. Will D/C risperdal, as pt denies any benefit and to avoid two neuroleptics. Will D/C buspar, as pt similarly denies any benefit, reduce polypharm. 07/15: Continue seroquel 200 mg, increase to 50 mg BID to target anxiety. Q15 min safety checks, CV Monitor response to medications. Monitor for safety in the milieu. Discharge on stabilization. Patient seen. Chart reviewed. Discussed with team. Obtain collateral contact info?as needed I spent minutes with the patient and/or on the patient floor today, greater than?50% of which was spent counseling/coordinating care. Patient educated on: diagnosis, medication risk/benefits and therapeutic strategies Reason for contiued inpatient stay Substantial Risk for: med/psych decompensation
[2022-07-15 09:27] LABS: Glucose, Whole Blood 278 mg/dL (60-115)
[2022-07-15] MEDS: Gabapentin 400 MG CAPSULE 800 MG PO ×3 (09:32→21:50)
[2022-07-15] MEDS: Insulin Lispro 100 UNIT/ML 3 ML VIAL SUBCUT ×4 (09:32→22:45)
[2022-07-15] MEDS: Prazosin HCL 5 MG CAPSULE PO (09:32)
[2022-07-15] MEDS: Amoxicillin 500 MG CAPSULE PO ×3 (09:32→21:50)
[2022-07-15 12:09] LABS: Glucose, Whole Blood 354 mg/dL (60-115)
[2022-07-15] MEDS: Hydrocortisone 1 % Cream 28.35 GM TUBE 1 APPL TOPICAL (13:28)
[2022-07-15] MEDS: Clotrimazole 1 % Cream 15 GM TUBE 1 APPL TOPICAL (13:28)
[2022-07-15] MEDS: QUEtiapine Fumarate 50 MG TABLET PO ×2 (14:24→21:24)
[2022-07-15 17:54] LABS: Glucose, Whole Blood 357 mg/dL (60-115)
[2022-07-15 21:42] VITALS: BP 141/76; PULSE 89; RESP 18; TEMP 36.2; O2SAT 98
[2022-07-15 21:49] LABS: Glucose, Whole Blood 392 mg/dL (60-115)
[2022-07-15] MEDS: Mirtazapine 15 MG TABLET PO (21:50)
[2022-07-15] MEDS: DULoxetine HCl 30 MG CAPSULE.DR 90 MG PO (21:50)
[2022-07-15] MEDS: QUEtiapine Fumarate 200 MG TABLET PO (21:50)
[2022-07-15] MEDS: Prazosin HCL 5 MG CAPSULE 10 MG PO (21:50)
[2022-07-15] MEDS: Insulin Glargine,Hum.rec.anlog 100 UNIT/ML 10 ML VIAL 20 UNIT SUBCUT (22:45)
[2022-07-16 08:55] VITALS: BP 126/77; PULSE 105; RESP 20; TEMP 36.4; O2SAT 97
[2022-07-16 09:03] LABS: Glucose, Whole Blood 332 mg/dL (60-115)
[2022-07-16] MEDS: QUEtiapine Fumarate 50 MG TABLET PO ×3 (09:05→22:42)
[2022-07-16] MEDS: Prazosin HCL 5 MG CAPSULE PO (09:06)
[2022-07-16] MEDS: Amoxicillin 500 MG CAPSULE PO ×3 (09:06→21:34)
[2022-07-16] MEDS: clonazePAM 1 MG TABLET PO ×2 (09:06→21:34)
[2022-07-16] MEDS: Gabapentin 400 MG CAPSULE 800 MG PO ×3 (09:07→21:34)
[2022-07-16] MEDS: Insulin Lispro 100 UNIT/ML 3 ML VIAL SUBCUT ×4 (09:46→21:35)
[2022-07-16 12:21] LABS: Glucose, Whole Blood 370 mg/dL (60-115)
[2022-07-16] MEDS: hydrOXYzine HCL 25 MG TABLET PO ×2 (15:10→22:42)
--- NOTE | 2022-07-16 15:12 | P.PNPSI_ITS ---
Subjective Subjective Date of Service: 07/16/22 Reason For Visit: SI Subjective Notes: Gee Warning and Conditional Voluntary Interim History: I spoke with pt's team and evaluated pt last night, he says he slept like a baby. Says overall he feels improvement on seroquel but that today he felt triggered due to a phone call with his sister, felt she was not supportive, tearful about this. Mental Status Exam Mental Status Exam Narrative: A&O. Large body stature, okay grooming, hospital attire. Good eye contact, attentive. No Tics or Tremors. No abnormal involuntary movements. Calm, cooperative, engaged. Non-pressured speech, spontaneous with regular rate and rhythm, normal volume and prosody. No prolonged speech latency or dysarthria. Mood is ?better,? affect is calm. Denies SI/SIB/HI upon inquiry. Denies VH. Currently denies AH or delusional thought content. Thoughts are coherent, organized. No known cognitive or memory impairment. Insight/ Judgment fair and adequate. Diagnostics Vital Signs (24Hr): Vital Signs - 24 hr 07/15/22 21:42 07/16/22 08:55 Temperature 97.2 F 97.6 F Pulse Rate 89 105 H Respiratory Rate 18 20 Blood Pressure 141/76 H 126/77 Pulse Oximetry 98 97 Oxygen Delivery Method Room Air Room Air BMI result Body Mass Index 29.7 Labs Results: 07/10/22 16:36 07/12/22 08:34 Labs: Laboratory Results - last 48 hr 07/14/22 07/14/22 07/15/22 17:44 20:48 06:26 POC Glucose 308 H 335 H 369 H* 07/15/22 07/15/22 07/15/22 09:23 12:04 17:46 POC Glucose 278 H 354 H* 357 H* 07/15/22 07/16/22 07/16/22 21:45 08:57 12:16 POC Glucose 392 H* 332 H 370 H* Medications Medications Current Medications Acetaminophen (Acetaminophen 325 Mg Tablet) 650 mg PO Q6H PRN PRN Reason: Headache/Pain Mild Scale (1-3) Last Admin: 07/12/22 03:52 Dose: 650 mg Al Hydroxide/Mg Hydroxide (Magnesium Hydrox/Alum Hydrox 30 Ml Oral.Susp) 30 ml PO Q6H PRN PRN Reason: Heartburn/Nausea Albuterol Sulfate (Albuterol Sulfate (0.083%) 2.5 Mg/3 Ml Vial.Neb) 2.5 mg INHALE Q4H PRN PRN Reason: shortness of breath or wheezing Albuterol Sulfate (Albuterol Sulfate 90 Mcg 8 Gm Inhaler) 2 puff INHALE Q4H PRN PRN Reason: bronchospasm Amoxicillin (Amoxicillin 500 Mg Capsule) 500 mg PO TID [facility] Stop: 07/18/22 15:01 Last Admin: 07/16/22 15:07 Dose: 500 mg Benzocaine (Benzocaine 20 % Oral Gel 9 Gm Tube) 1 appl MUCOUS MEM QID PRN PRN Reason: dental pain Last Admin: 07/13/22 21:52 Dose: 1 appl Clonazepam (Clonazepam 1 Mg Tablet) 1 mg PO BID [facility] Last Admin: 07/16/22 09:06 Dose: 1 mg Clotrimazole (Clotrimazole 1 % Cream 15 Gm Tube) 1 appl TOPICAL BID [facility]; Protocol Last Admin: 07/16/22 10:10 Dose: Not Given Duloxetine HCl (Duloxetine Hcl 30 Mg Capsule.Dr) 90 mg PO BEDTIME [facility] Last Admin: 07/15/22 21:50 Dose: 90 mg Gabapentin (Gabapentin 400 Mg Capsule) 800 mg PO TID [facility] Last Admin: 07/16/22 15:07 Dose: 800 mg Hydrocortisone (Hydrocortisone 1 % Cream 28.35 Gm Tube) 1 appl TOPICAL BID [facility]; Protocol Last Admin: 07/16/22 10:10 Dose: Not Given Hydroxyzine HCl (Hydroxyzine Hcl 25 Mg Tablet) 25 mg PO Q6H PRN PRN Reason: Anxiety Last Admin: 07/16/22 15:10 Dose: 25 mg Ibuprofen (Ibuprofen 800 Mg Tablet) 800 mg PO Q8H PRN PRN Reason: mod-severe pain Last Admin: 07/14/22 14:27 Dose: 800 mg Insulin Glargine (Insulin Glargine,Hum.Rec.Anlog 100 Unit/Ml 10 Ml Vial) 20 unit SUBCUT BEDTIME [facility] Last Admin: 07/15/22 22:45 Dose: 20 unit Insulin Human Lispro (Insulin Lispro 100 Unit/Ml 3 Ml Vial) 0 unit SUBCUT QIDACHS [facility]; Protocol Last Admin: 07/16/22 13:36 Dose: 10 unit Magnesium Hydroxide (Milk Of Magnesia 30 Ml Oral.Susp) 30 ml PO DAILY PRN PRN Reason: Constipation Mirtazapine (Mirtazapine 15 Mg Tablet) 15 mg PO BEDTIME [facility] Last Admin: 07/15/22 21:50 Dose: 15 mg Prazosin HCl (Prazosin Hcl 5 Mg Capsule) 5 mg PO DAILY [facility]; Protocol Last Admin: 07/16/22 09:06 Dose: 5 mg Prazosin HCl (Prazosin Hcl 5 Mg Capsule) 10 mg PO BEDTIME [facility]; Protocol Last Admin: 07/15/22 21:50 Dose: 10 mg Quetiapine Fumarate (Quetiapine Fumarate 200 Mg Tablet) 200 mg PO BEDTIME [facility] Last Admin: 07/15/22 21:50 Dose: 200 mg Quetiapine Fumarate (Quetiapine Fumarate 50 Mg Tablet) 50 mg PO BID@0800,1400 [facility] Last Admin: 07/16/22 15:07 Dose: 50 mg Quetiapine Fumarate (Quetiapine Fumarate 50 Mg Tablet) 50 mg PO Q6H PRN PRN Reason: anxiety Last Admin: 07/15/22 21:24 Dose: 50 mg Tiotropium [place] (Tiotropium [place] 18 Mcg Cap.W.Dev) 1 puff INHALE RDAILY [facility] Last Admin: 07/16/22 09:09 Dose: 1 puff Allergies Allergies Allergy/AdvReac Type Severity Reaction Status Date / Time No Known Allergies Allergy Verified 05/09/22 15:01 Assessment & Plan Assessment & Plan (1) Post traumatic stress disorder (PTSD): Status: Acute Code(s): F43.10 - Post-traumatic stress disorder, unspecified (2) Bipolar II disorder: Status: Acute Code(s): F31.81 - Bipolar II disorder Zoey Jennings is a 61 y.o. Male who carries a dx of PTSD and Bipolar II DO. He arrived to [facility] on 07/10/22 due to flashbacks, nightmares, VH of shadows, AH, agitation, poor sleep, and passive SI without plan or intent. He had recent psych admission to on 06/15- due to VH of a black shadow, which he said was new for him. During this admission, his olanzapine 2.5 mg QHS was d/c?d due to lack of benefit, started on buspar, which was titrated up to 20 mg TID for anxiety. However, pt is now denying benefit on his medications. 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 Plan: Pt reports lack of benefit on buspar, will start risperdal 0.5 mg BID to target anxiety, hypervigilance, perceptual disturbances, and agitation. Will consider discontinuing buspar if risperdal is effective. Pt needs referral for OP dental, will prescribe orajel and PRN motrin due to teeth breaking. He is also interested in trulicity, as he was on this in the past to control blood glucose, this is not on formulary but may consider prescribing on discharge. 07/12: Increase risperdal to 1 mg BID, will increase klonopin to 1 mg BID but hipolito chavez pt understands this will not be continued on discharge, discussed with OP provider. 07/13: Start remeron 15 mg QHS for sleep, anxiety, PTSD, may work in conjunction with cymbalta. Will also lower cymbalta to 90 mg QHS, as evidence base does not show benefit on doses above 60 mg and pt has not noticed difference, trying to avoid polypharm. 07/14: Pt asking for something for sleep, will start seroquel 200 mg QHS. Will D/C risperdal, as pt denies any benefit and to avoid two neuroleptics. Will D/C buspar, as pt similarly denies any benefit, reduce polypharm. 07/15: Continue seroquel 200 mg, increase to 50 mg BID to target anxiety. 07/16: No medication changes, continue seroquel trial Q15 min safety checks, CV Monitor response to medications. Monitor for safety in the milieu. Discharge on stabilization. Patient seen. Chart reviewed. Discussed with team. Obtain collateral contact info?as needed I spent minutes with the patient and/or on the patient floor today, greater than?50% of which was spent counseling/coordinating care. Patient educated on: medication risk/benefits and therapeutic strategies Reason for contiued inpatient stay Substantial Risk for: med/psych decompensation
[2022-07-16 18:03] LABS: Glucose, Whole Blood 417 mg/dL (60-115)
--- NOTE | 2022-07-16 18:08 | PC.NURSE ---
Provider notified of POC of 417.
[2022-07-16 21:23] LABS: Glucose, Whole Blood 318 mg/dL (60-115)
[2022-07-16 21:30] VITALS: BP 145/83; PULSE 85; RESP 18; TEMP 36.4; O2SAT 99
[2022-07-16] MEDS: DULoxetine HCl 30 MG CAPSULE.DR 90 MG PO (21:33)
[2022-07-16] MEDS: Prazosin HCL 5 MG CAPSULE 10 MG PO (21:34)
[2022-07-16] MEDS: Mirtazapine 15 MG TABLET PO (21:34)
[2022-07-16] MEDS: QUEtiapine Fumarate 200 MG TABLET PO (21:34)
[2022-07-16] MEDS: Insulin Glargine,Hum.rec.anlog 100 UNIT/ML 10 ML VIAL 20 UNIT SUBCUT (21:37)
[2022-07-17 00:27] LABS: Glucose, Whole Blood 348 mg/dL (60-115)
[2022-07-17 06:00] VITALS: BP 128/76; PULSE 79; RESP 16; TEMP 36.6; O2SAT 99
[2022-07-17] MEDS: clonazePAM 1 MG TABLET PO ×2 (08:39→20:45)
[2022-07-17] MEDS: Amoxicillin 500 MG CAPSULE PO ×3 (08:39→20:45)
[2022-07-17 08:40] LABS: Glucose, Whole Blood 339 mg/dL (60-115)
[2022-07-17] MEDS: QUEtiapine Fumarate 50 MG TABLET PO ×3 (08:40→17:02)
[2022-07-17] MEDS: Gabapentin 400 MG CAPSULE 800 MG PO (08:40)
[2022-07-17] MEDS: Prazosin HCL 5 MG CAPSULE PO (08:40)
[2022-07-17] MEDS: Insulin Lispro 100 UNIT/ML 3 ML VIAL SUBCUT ×5 (09:11→21:42)
[2022-07-17 12:32] LABS: Glucose, Whole Blood 397 mg/dL (60-115)
[2022-07-17] MEDS: Gabapentin 300 MG CAPSULE 900 MG PO ×2 (14:34→20:44)
--- NOTE | 2022-07-17 14:40 | HO.PSYCHPN ---
Subjective Subjective Date of Service: 07/17/22 Reason For Visit: SI Interim History: calm, cooperative. states he does not feel ready for discharge today; he was informed it would be today or tomorrow. asks to review his labs, says he doesn't understand why he is losing weight. labs reviewed. pt reports 8 lb weight loss since admission, which is about a week. 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 pt reports he is here principally to address nightmares at this stage of his hospitalization. he has been working on this with jonatan and has been started on seroquel 200 mg at HS, which appears to be helping. reports he has been on up to 15 mg prazosin at HS without relief. slept well last night and would like to leave HS regimen alone today. does c/o ongoing neuropathy discomfort and agrees to increase in gabapentin from 800 TID to 900 TID. per staff, brighter. no SI/HI/AVH. helping others, talking, playing cards. tearful and anxious yesterday afternoon, however. POCs elevated at 332, 370, 417. c/o seeing little shadows sometimes at night. slept well. Mental Status Exam Mental Status Exam Narrative: A&O. Large body stature, okay grooming, hospital attire. Good eye contact, attentive. No Tics or Tremors. No abnormal involuntary movements. Calm, cooperative, engaged. Non-pressured speech, spontaneous with regular rate and rhythm, normal volume and prosody. No prolonged speech latency or dysarthria. affect is calm. no SI/SIB/HI/AVH expressed. Thoughts are coherent, organized. No known cognitive or memory impairment. Insight/ Judgment fair and adequate. Diagnostics Vital Signs (24Hr): Vital Signs - 24 hr 07/16/22 21:30 07/17/22 06:00 Temperature 97.6 F 97.9 F Pulse Rate 85 79 Respiratory Rate 18 16 Blood Pressure 145/83 H 128/76 Pulse Oximetry 99 99 Oxygen Delivery Method Room Air Room Air BMI result Body Mass Index 29.7 Labs Results: 07/10/22 16:36 07/12/22 08:34 Labs: Laboratory Results - last 48 hr 07/15/22 07/15/22 07/16/22 17:46 21:45 08:57 POC Glucose 357 H* 392 H* 332 H 07/16/22 07/16/22 07/16/22 12:16 17:59 21:15 POC Glucose 370 H* 417 H* 318 H 07/17/22 07/17/22 07/17/22 00:22 08:24 12:28 POC Glucose 348 H 339 H 397 H* Medications Medications Current Medications Acetaminophen (Acetaminophen 325 Mg Tablet) 650 mg PO Q6H PRN PRN Reason: Headache/Pain Mild Scale (1-3) Last Admin: 07/12/22 03:52 Dose: 650 mg Al Hydroxide/Mg Hydroxide (Magnesium Hydrox/Alum Hydrox 30 Ml Oral.Susp) 30 ml PO Q6H PRN PRN Reason: Heartburn/Nausea Albuterol Sulfate (Albuterol Sulfate (0.083%) 2.5 Mg/3 Ml Vial.Neb) 2.5 mg INHALE Q4H PRN PRN Reason: shortness of breath or wheezing Albuterol Sulfate (Albuterol Sulfate 90 Mcg 8 Gm Inhaler) 2 puff INHALE Q4H PRN PRN Reason: bronchospasm Amoxicillin (Amoxicillin 500 Mg Capsule) 500 mg PO TID [facility] Stop: 07/18/22 15:01 Last Admin: 07/17/22 14:34 Dose: 500 mg Benzocaine (Benzocaine 20 % Oral Gel 9 Gm Tube) 1 appl MUCOUS MEM QID PRN PRN Reason: dental pain Last Admin: 07/13/22 21:52 Dose: 1 appl Clonazepam (Clonazepam 1 Mg Tablet) 1 mg PO BID [facility] Last Admin: 07/17/22 08:39 Dose: 1 mg Clotrimazole (Clotrimazole 1 % Cream 15 Gm Tube) 1 appl TOPICAL BID [facility]; Protocol Last Admin: 07/17/22 08:42 Dose: Not Given Duloxetine HCl (Duloxetine Hcl 30 Mg Capsule.Dr) 90 mg PO BEDTIME [facility] Last Admin: 07/16/22 21:33 Dose: 90 mg Gabapentin (Gabapentin 300 Mg Capsule) 900 mg PO TID [facility] Last Admin: 07/17/22 14:34 Dose: 900 mg Hydrocortisone (Hydrocortisone 1 % Cream 28.35 Gm Tube) 1 appl TOPICAL BID [facility]; Protocol Last Admin: 07/17/22 08:42 Dose: Not Given Hydroxyzine HCl (Hydroxyzine Hcl 25 Mg Tablet) 25 mg PO Q6H PRN PRN Reason: Anxiety Last Admin: 07/16/22 22:42 Dose: 25 mg Ibuprofen (Ibuprofen 800 Mg Tablet) 800 mg PO Q8H PRN PRN Reason: mod-severe pain Last Admin: 07/14/22 14:27 Dose: 800 mg Insulin Glargine (Insulin Glargine,Hum.Rec.Anlog 100 Unit/Ml 10 Ml Vial) 20 unit SUBCUT BEDTIME [facility] Last Admin: 07/16/22 21:37 Dose: 20 unit Insulin Human Lispro (Insulin Lispro 100 Unit/Ml 3 Ml Vial) 0 unit SUBCUT QIDACHS [facility]; Protocol Last Admin: 07/17/22 13:15 Dose: 10 unit Magnesium Hydroxide (Milk Of Magnesia 30 Ml Oral.Susp) 30 ml PO DAILY PRN PRN Reason: Constipation Mirtazapine (Mirtazapine 15 Mg Tablet) 15 mg PO BEDTIME [facility] Last Admin: 07/16/22 21:34 Dose: 15 mg Prazosin HCl (Prazosin Hcl 5 Mg Capsule) 5 mg PO DAILY [facility]; Protocol Last Admin: 07/17/22 08:40 Dose: 5 mg Prazosin HCl (Prazosin Hcl 5 Mg Capsule) 10 mg PO BEDTIME [facility]; Protocol Last Admin: 07/16/22 21:34 Dose: 10 mg Quetiapine Fumarate (Quetiapine Fumarate 200 Mg Tablet) 200 mg PO BEDTIME [facility] Last Admin: 07/16/22 21:34 Dose: 200 mg Quetiapine Fumarate (Quetiapine Fumarate 50 Mg Tablet) 50 mg PO BID@0800,1400 [facility] Last Admin: 07/17/22 14:34 Dose: 50 mg Quetiapine Fumarate (Quetiapine Fumarate 50 Mg Tablet) 50 mg PO Q6H PRN PRN Reason: anxiety Last Admin: 07/16/22 22:42 Dose: 50 mg Tiotropium [place] (Tiotropium [place] 18 Mcg Cap.W.Dev) 1 puff INHALE RDAILY [facility] Last Admin: 07/17/22 11:26 Dose: 1 puff Allergies Allergies Allergy/AdvReac Type Severity Reaction Status Date / Time No Known Allergies Allergy Verified 05/09/22 15:01 Assessment & Plan Assessment & Plan (1) Post traumatic stress disorder (PTSD): Status: Acute Code(s): F43.10 - Post-traumatic stress disorder, unspecified (2) Bipolar II disorder: Status: Acute Code(s): F31.81 - Bipolar II disorder Plan Dick is a 61 y.o. Male who carries a dx of PTSD and Bipolar II DO. He arrived to [facility] ED on 07/10/22 due to flashbacks, nightmares, VH of shadows, AH, agitation, poor sleep, and passive SI without plan or intent. He had recent psych admission to on 06/15- due to VH of a black shadow, which he said was new for him. During this admission, his olanzapine 2.5 mg QHS was d/c?d due to lack of benefit, started on buspar, which was titrated up to 20 mg TID for anxiety. However, pt is now denying benefit on his medications. 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 Plan: Pt reports lack of benefit on buspar, will start risperdal 0.5 mg BID to target anxiety, hypervigilance, perceptual disturbances, and agitation. Will consider discontinuing buspar if risperdal is effective. Pt needs referral for OP dental, will prescribe orajel and PRN motrin due to teeth breaking. He is also interested in trulicity, as he was on this in the past to control blood glucose, this is not on formulary but may consider prescribing on discharge. 07/12: Increase risperdal to 1 mg BID, will increase klonopin to 1 mg BID but again pt understands this will not be continued on discharge, discussed with OP provider. 07/13: Start remeron 15 mg QHS for sleep, anxiety, PTSD, may work in conjunction with cymbalta. Will also lower cymbalta to 90 mg QHS, as evidence base does not show benefit on doses above 60 mg and pt has not noticed difference, trying to avoid polypharm. 07/14: Pt asking for something for sleep, will start seroquel 200 mg QHS. Will D/C risperdal, as pt denies any benefit and to avoid two neuroleptics. Will D/C buspar, as pt similarly denies any benefit, reduce polypharm. 07/15: Continue seroquel 200 mg, increase to 50 mg BID to target anxiety. 07/16: No medication changes, continue seroquel trial 07/17: slept well last night. continue current regimen aside from increasing gabapentin from 800 TID to 900 TID for neuropathic pain. I spent __25____ minutes with the patient and/or on the patient floor today, greater than?50% of which was spent counseling/coordinating care. Reason for contiued inpatient stay Substantial Risk for: inability to function and rapid decompensation
--- NOTE | 2022-07-17 14:42 | PM.EVENT ---
Event Note Date of Service: 07/17/22 Event Note: DM with hyperglycemia, will increase lantus from 20 units bedtime to 30 units bid, and add a preprandial 5units lispro premeal to go with correction dose
[2022-07-17 17:38] LABS: Glucose, Whole Blood 279 mg/dL (60-115)
[2022-07-17] MEDS: Ibuprofen 800 MG TABLET PO (19:22)
[2022-07-17 20:42] LABS: Glucose, Whole Blood 447 mg/dL (60-115)
[2022-07-17] MEDS: DULoxetine HCl 30 MG CAPSULE.DR 90 MG PO (20:44)
[2022-07-17] MEDS: QUEtiapine Fumarate 200 MG TABLET PO (20:44)
[2022-07-17] MEDS: Prazosin HCL 5 MG CAPSULE 10 MG PO (20:45)
[2022-07-17] MEDS: Mirtazapine 15 MG TABLET PO (20:45)
[2022-07-17 21:00] VITALS: BP 145/65; PULSE 82; RESP 16; TEMP 36.7; O2SAT 99
[2022-07-17] MEDS: Insulin Glargine,Hum.rec.anlog 100 UNIT/ML 10 ML VIAL 30 UNIT SUBCUT (21:41)
[2022-07-17] MEDS: Insulin Lispro 100 UNIT/ML 3 ML VIAL 10 UNIT SUBCUT (21:44)
[2022-07-17 23:23] LABS: Glucose, Whole Blood 274 mg/dL (60-115)
[2022-07-18] MEDS: QUEtiapine Fumarate 50 MG TABLET PO ×3 (02:50→14:21)
[2022-07-18] MEDS: hydrOXYzine HCL 25 MG TABLET PO ×2 (06:15→14:57)
[2022-07-18 08:39] VITALS: BP 125/65; PULSE 82; RESP 17; TEMP 36.6; O2SAT 98
[2022-07-18] MEDS: Gabapentin 300 MG CAPSULE 900 MG PO (08:40)
[2022-07-18] MEDS: Prazosin HCL 5 MG CAPSULE PO (08:41)
[2022-07-18] MEDS: clonazePAM 1 MG TABLET PO ×2 (08:41→20:34)
[2022-07-18] MEDS: Amoxicillin 500 MG CAPSULE PO ×2 (08:41→14:21)
[2022-07-18 09:08] LABS: Glucose, Whole Blood 266 mg/dL (60-115)
[2022-07-18] MEDS: Insulin Lispro 100 UNIT/ML 3 ML VIAL SUBCUT ×7 (10:13→20:35)
[2022-07-18] MEDS: Insulin Glargine,Hum.rec.anlog 100 UNIT/ML 10 ML VIAL 30 UNIT SUBCUT ×2 (10:14→20:35)
[2022-07-18 12:21] LABS: Glucose, Whole Blood 405 mg/dL (60-115)
[2022-07-18] MEDS: Gabapentin 400 MG CAPSULE PO ×2 (14:34→20:34)
[2022-07-18] MEDS: Gabapentin 600 MG TABLET PO ×2 (14:34→20:34)
--- NOTE | 2022-07-18 15:27 | HO.PSYCHPN ---
Subjective Subjective Date of Service: 07/18/22 Reason For Visit: SI Interim History: calm, cooperative. slept well, no nightmares. waking up several times in the night but falling back asleep. agreeable to increase gabapentin to 1000 TID and observe for effect. agreeable to tentative sunday DC date. per staff, denies psych Sx, wants to wait until he is 100% prior to discharge, however. not attending groups. mild anxiety, depression is low. FSBS improved with insulin dose change. Mental Status Exam Mental Status Exam Narrative: A&O. Large body stature, okay grooming, hospital attire. Good eye contact, attentive. No Tics or Tremors. No abnormal involuntary movements. Calm, cooperative, engaged. Non-pressured speech, spontaneous with regular rate and rhythm, normal volume and prosody. No prolonged speech latency or dysarthria. affect is calm. no SI/SIB/HI/AVH expressed. Thoughts are coherent, organized. No known cognitive or memory impairment. Insight/ Judgment fair and adequate. Diagnostics Vital Signs (24Hr): Vital Signs - 24 hr 07/17/22 21:00 07/18/22 08:39 Temperature 98.1 F 97.8 F Pulse Rate 82 82 Respiratory Rate 16 17 Blood Pressure 145/65 H 125/65 Pulse Oximetry 99 98 Oxygen Delivery Method Room Air Room Air BMI result Body Mass Index 29.7 Labs Results: 07/10/22 16:36 07/12/22 08:34 Labs: Laboratory Results - last 48 hr 07/16/22 07/16/22 07/17/22 17:59 21:15 00:22 POC Glucose 417 H* 318 H 348 H 07/17/22 07/17/22 07/17/22 08:24 12:28 17:32 POC Glucose 339 H 397 H* 279 H 07/17/22 07/17/22 07/18/22 20:34 23:18 08:59 POC Glucose 447 H* 274 H 266 H 07/18/22 12:13 POC Glucose 405 H* Medications Medications Current Medications Acetaminophen (Acetaminophen 325 Mg Tablet) 650 mg PO Q6H PRN PRN Reason: Headache/Pain Mild Scale (1-3) Last Admin: 07/12/22 03:52 Dose: 650 mg Al Hydroxide/Mg Hydroxide (Magnesium Hydrox/Alum Hydrox 30 Ml Oral.Susp) 30 ml PO Q6H PRN PRN Reason: Heartburn/Nausea Albuterol Sulfate (Albuterol Sulfate (0.083%) 2.5 Mg/3 Ml Vial.Neb) 2.5 mg INHALE Q4H PRN PRN Reason: shortness of breath or wheezing Albuterol Sulfate (Albuterol Sulfate 90 Mcg 8 Gm Inhaler) 2 puff INHALE Q4H PRN PRN Reason: bronchospasm Benzocaine (Benzocaine 20 % Oral Gel 9 Gm Tube) 1 appl MUCOUS MEM QID PRN PRN Reason: dental pain Last Admin: 07/13/22 21:52 Dose: 1 appl Clonazepam (Clonazepam 1 Mg Tablet) 1 mg PO BID [facility] Last Admin: 07/18/22 08:41 Dose: 1 mg Clotrimazole (Clotrimazole 1 % Cream 15 Gm Tube) 1 appl TOPICAL BID [facility]; Protocol Last Admin: 07/18/22 09:00 Dose: Not Given Duloxetine HCl (Duloxetine Hcl 30 Mg Capsule.Dr) 90 mg PO BEDTIME [facility] Last Admin: 07/17/22 20:44 Dose: 90 mg Gabapentin (Gabapentin 600 Mg Tablet) 600 mg PO TID [facility] Last Admin: 07/18/22 14:34 Dose: 600 mg Gabapentin (Gabapentin 400 Mg Capsule) 400 mg PO TID [facility] Last Admin: 07/18/22 14:34 Dose: 400 mg Hydrocortisone (Hydrocortisone 1 % Cream 28.35 Gm Tube) 1 appl TOPICAL BID [facility]; Protocol Last Admin: 07/18/22 09:00 Dose: Not Given Hydroxyzine HCl (Hydroxyzine Hcl 25 Mg Tablet) 25 mg PO Q6H PRN PRN Reason: Anxiety Last Admin: 07/18/22 14:57 Dose: 25 mg Ibuprofen (Ibuprofen 800 Mg Tablet) 800 mg PO Q8H PRN PRN Reason: mod-severe pain Last Admin: 07/17/22 19:22 Dose: 800 mg Insulin Glargine (Insulin Glargine,Hum.Rec.Anlog 100 Unit/Ml 10 Ml Vial) 30 unit SUBCUT BID [facility] Last Admin: 07/18/22 10:14 Dose: 30 unit Insulin Human Lispro (Insulin Lispro 100 Unit/Ml 3 Ml Vial) 0 unit SUBCUT QIDACHS [facility]; Protocol Last Admin: 07/18/22 13:28 Dose: 10 unit Insulin Human Lispro (Insulin Lispro 100 Unit/Ml 3 Ml Vial) 5 unit SUBCUT TIDAC [facility] Last Admin: 07/18/22 13:28 Dose: 5 unit Magnesium Hydroxide (Milk Of Magnesia 30 Ml Oral.Susp) 30 ml PO DAILY PRN PRN Reason: Constipation Mirtazapine (Mirtazapine 15 Mg Tablet) 15 mg PO BEDTIME [facility] Last Admin: 07/17/22 20:45 Dose: 15 mg Prazosin HCl (Prazosin Hcl 5 Mg Capsule) 5 mg PO DAILY [facility]; Protocol Last Admin: 07/18/22 08:41 Dose: 5 mg Prazosin HCl (Prazosin Hcl 5 Mg Capsule) 10 mg PO BEDTIME [facility]; Protocol Last Admin: 07/17/22 20:45 Dose: 10 mg Quetiapine Fumarate (Quetiapine Fumarate 200 Mg Tablet) 200 mg PO BEDTIME [facility] Last Admin: 07/17/22 20:44 Dose: 200 mg Quetiapine Fumarate (Quetiapine Fumarate 50 Mg Tablet) 50 mg PO BID@0800,1400 [facility] Last Admin: 07/18/22 14:21 Dose: 50 mg Quetiapine Fumarate (Quetiapine Fumarate 50 Mg Tablet) 50 mg PO Q6H PRN PRN Reason: anxiety Last Admin: 07/18/22 02:50 Dose: 50 mg Tiotropium [place] (Tiotropium [place] 18 Mcg Cap.W.Dev) 1 puff INHALE RDAILY [facility] Last Admin: 07/18/22 08:42 Dose: 1 puff Allergies Allergies Allergy/AdvReac Type Severity Reaction Status Date / Time No Known Allergies Allergy Verified 05/09/22 15:01 Assessment & Plan Assessment & Plan (1) Post traumatic stress disorder (PTSD): Status: Acute Code(s): F43.10 - Post-traumatic stress disorder, unspecified (2) Bipolar II disorder: Status: Acute Code(s): F31.81 - Bipolar II disorder Plan Dick is a 61 y.o. Male who carries a dx of PTSD and Bipolar II DO. He arrived to [facility] on 07/10/22 due to flashbacks, nightmares, VH of shadows, AH, agitation, poor sleep, and passive SI without plan or intent. He had recent psych admission to on 06/15- due to VH of a black shadow, which he said was new for him. During this admission, his olanzapine 2.5 mg QHS was d/c?d due to lack of benefit, started on buspar, which was titrated up to 20 mg TID for anxiety. However, pt is now denying benefit on his medications. 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 Plan: Pt reports lack of benefit on buspar, will start risperdal 0.5 mg BID to target anxiety, hypervigilance, perceptual disturbances, and agitation. Will consider discontinuing buspar if risperdal is effective. Pt needs referral for OP dental, will prescribe orajel and PRN motrin due to teeth breaking. He is also interested in trulicity, as he was on this in the past to control blood glucose, this is not on formulary but may consider prescribing on discharge. 07/12: Increase risperdal to 1 mg BID, will increase klonopin to 1 mg BID but again pt understands this will not be continued on discharge, discussed with OP provider. 07/13: Start remeron 15 mg QHS for sleep, anxiety, PTSD, may work in conjunction with cymbalta. Will also lower cymbalta to 90 mg QHS, as evidence base does not show benefit on doses above 60 mg and pt has not noticed difference, trying to avoid polypharm. 07/14: Pt asking for something for sleep, will start seroquel 200 mg QHS. Will D/C risperdal, as pt denies any benefit and to avoid two neuroleptics. Will D/C buspar, as pt similarly denies any benefit, reduce polypharm. 07/15: Continue seroquel 200 mg, increase to 50 mg BID to target anxiety. 07/16: No medication changes, continue seroquel trial 07/17: slept well last night. continue current regimen aside from increasing gabapentin from 800 TID to 900 TID for neuropathic pain. 07/18: continues to sleep well. increase gabapentin to 1000 TID. sunday tentative DC date. I spent __25____ minutes with the patient and/or on the patient floor today, greater than?50% of which was spent counseling/coordinating care. Reason for contiued inpatient stay Substantial Risk for: inability to function and rapid decompensation
[2022-07-18] MEDS: Acetaminophen 325 MG TABLET 650 MG PO (16:22)
[2022-07-18 16:58] LABS: Glucose, Whole Blood 300 mg/dL (60-115)
[2022-07-18 20:09] LABS: Glucose, Whole Blood 422 mg/dL (60-115)
[2022-07-18 20:31] VITALS: BP 114/79; PULSE 90; RESP 16; TEMP 36.7; O2SAT 98
[2022-07-18] MEDS: DULoxetine HCl 30 MG CAPSULE.DR 90 MG PO (20:33)
[2022-07-18] MEDS: Prazosin HCL 5 MG CAPSULE 10 MG PO (20:33)
[2022-07-18] MEDS: QUEtiapine Fumarate 200 MG TABLET PO (20:34)
[2022-07-18] MEDS: Mirtazapine 15 MG TABLET PO (20:35)
[2022-07-19] MEDS: hydrOXYzine HCL 25 MG TABLET PO ×3 (00:38→16:10)
[2022-07-19] MEDS: Ibuprofen 800 MG TABLET PO (00:38)
[2022-07-19] MEDS: QUEtiapine Fumarate 50 MG TABLET PO ×3 (00:38→13:15)
[2022-07-19 08:22] LABS: Glucose, Whole Blood 317 mg/dL (60-115)
[2022-07-19 08:52] VITALS: BP 131/69; PULSE 75; RESP 17; TEMP 36.5; O2SAT 99
[2022-07-19] MEDS: Insulin Lispro 100 UNIT/ML 3 ML VIAL SUBCUT ×7 (09:45→21:00)
[2022-07-19] MEDS: Insulin Glargine,Hum.rec.anlog 100 UNIT/ML 10 ML VIAL 30 UNIT SUBCUT ×2 (09:46→21:00)
[2022-07-19] MEDS: Gabapentin 400 MG CAPSULE PO ×3 (09:47→20:50)
[2022-07-19] MEDS: Prazosin HCL 5 MG CAPSULE PO (09:47)
[2022-07-19] MEDS: Gabapentin 600 MG TABLET PO ×3 (09:47→20:50)
[2022-07-19] MEDS: clonazePAM 1 MG TABLET PO ×2 (09:47→20:50)
--- NOTE | 2022-07-19 12:26 | P.PNPSI_ITS ---
Subjective Subjective Date of Service: 07/19/22 Reason For Visit: SI Subjective Notes: Conditional Voluntary Interim History: Pt reports he continues to have nightmares. He reports he mood is better in that he is less depressed, less SI. He is future oriented in that he reports he is looking forward to meet his grandchild. He reports he has accepted the fact that he has cancer but willing to enjoy life with his family. He had brief peisode of agitation last night when he was redirected by staff, and he felt offended. He was asking for discharged last night but today he states he wants to stay until Sunday as agreed with primary treatment team. Medication Compliance: Yes Side effects from medications: No Attending Groups: Yes Review of Systems Review of Systems CVS: No c/o chest pain, palpitations, no SOB SOCIAL SCIENCES CHAIR: No c/o dizziness, headache GI: No c/o Nausea, Vomiting, diarrhea, constipation or heartburn Yes all other systems are reviewed and are negative Constitutional: Reports no additional constitutional complaints, Denies body ache(s), Denies chills, Denies fever(s), Denies headache(s) and Denies weakness Eyes: Reports no additional eye complaints and Denies change in vision Reports system reviewed and no additional complaints, except as documented, Denies dizziness, Denies headache(s), Denies nasal congestion, Denies nasal discharge and Denies neck pain Cardiovascular: Reports no additional cardiovascular complaints, Denies chest pain, Denies leg edema and Denies dyspnea Respiratory: Reports no additional respiratory complaints, Denies cough and Denies dyspnea Gastrointestinal: Reports no additional gastrointestinal complaints, Denies abdominal pain, Denies diarrhea, Denies nausea and Denies vomiting Genitourinary: Denies urinary incontinence Musculoskeletal: Reports no additional musculoskeletal complaints, Denies back pain, Denies arthralgias, Denies joint swelling, Denies neck pain, Denies numbness and Denies tingling Skin/Breast: Reports system reviewed and no additional complaints, except as docu and Denies rash Reports system reviewed and no additional complaints, except as documented, Denies Abnormal speech present, Denies dizziness, Denies headache(s), Denies numbness, Denies tingling and Denies weakness Psychiatric: Reports depression, Reports visual hallucinations and Reports suicidal ideation Mental Status Exam Mental Status Exam Narrative: A&O. Large body stature, okay grooming, hospital attire. Good eye contact, attentive. No Tics or Tremors. No abnormal involuntary movements. Calm, cooperative, engaged. Non-pressured speech, spontaneous with regular rate and rhythm, normal volume and prosody. No prolonged speech latency or dysarthria. affect is calm. no SI/SIB/HI/AVH expressed. Thoughts are coherent, organized. No known cognitive or memory impairment. Insight/ Judgment fair and adequate. Diagnostics Vital Signs (24Hr): Vital Signs - 24 hr 07/19/22 08:52 07/19/22 20:54 Temperature 97.7 F 97.2 F Pulse Rate 75 80 Respiratory Rate 17 18 Blood Pressure 131/69 141/82 H Pulse Oximetry 99 98 Oxygen Delivery Method Room Air Room Air BMI result Body Mass Index 29.7 Labs Results: 07/10/22 16:36 07/12/22 08:34 Labs: Laboratory Results - last 48 hr 07/18/22 07/18/22 07/18/22 08:59 12:13 16:55 POC Glucose 266 H 405 H* 300 H 07/18/22 07/19/22 07/19/22 20:01 08:10 12:25 POC Glucose 422 H* 317 H 305 H 07/19/22 07/19/22 07/20/22 17:35 20:28 08:02 POC Glucose 240 H 295 H 390 H* Medications Medications Current Medications Acetaminophen (Acetaminophen 325 Mg Tablet) 650 mg PO Q6H PRN PRN Reason: Headache/Pain Mild Scale (1-3) Last Admin: 07/18/22 16:22 Dose: 650 mg Al Hydroxide/Mg Hydroxide (Magnesium Hydrox/Alum Hydrox 30 Ml Oral.Susp) 30 ml PO Q6H PRN PRN Reason: Heartburn/Nausea Albuterol Sulfate (Albuterol Sulfate (0.083%) 2.5 Mg/3 Ml Vial.Neb) 2.5 mg INHALE Q4H PRN PRN Reason: shortness of breath or wheezing Albuterol Sulfate (Albuterol Sulfate 90 Mcg 8 Gm Inhaler) 2 puff INHALE Q4H PRN PRN Reason: bronchospasm Benzocaine (Benzocaine 20 % Oral Gel 9 Gm Tube) 1 appl MUCOUS MEM QID PRN PRN Reason: dental pain Last Admin: 07/13/22 21:52 Dose: 1 appl Clonazepam (Clonazepam 1 Mg Tablet) 1 mg PO BID [facility] Last Admin: 07/19/22 20:50 Dose: 1 mg Clotrimazole (Clotrimazole 1 % Cream 15 Gm Tube) 1 appl TOPICAL BID [facility]; Protocol Last Admin: 07/19/22 21:01 Dose: Not Given Duloxetine HCl (Duloxetine Hcl 30 Mg Capsule.Dr) 90 mg PO BEDTIME [facility] Last Admin: 07/19/22 20:50 Dose: 90 mg Gabapentin (Gabapentin 600 Mg Tablet) 600 mg PO TID [facility] Last Admin: 07/19/22 20:50 Dose: 600 mg Gabapentin (Gabapentin 400 Mg Capsule) 400 mg PO TID [facility] Last Admin: 07/19/22 20:50 Dose: 400 mg Hydrocortisone (Hydrocortisone 1 % Cream 28.35 Gm Tube) 1 appl TOPICAL BID [facility]; Protocol Last Admin: 07/19/22 21:01 Dose: Not Given Hydroxyzine HCl (Hydroxyzine Hcl 25 Mg Tablet) 25 mg PO Q6H PRN PRN Reason: Anxiety Last Admin: 07/20/22 03:32 Dose: 25 mg Ibuprofen (Ibuprofen 800 Mg Tablet) 800 mg PO Q8H PRN PRN Reason: mod-severe pain Last Admin: 07/19/22 00:38 Dose: 800 mg Insulin Glargine (Insulin Glargine,Hum.Rec.Anlog 100 Unit/Ml 10 Ml Vial) 30 unit SUBCUT BID [facility] Last Admin: 07/19/22 21:00 Dose: 30 unit Insulin Human Lispro (Insulin Lispro 100 Unit/Ml 3 Ml Vial) 0 unit SUBCUT QIDACHS [facility]; Protocol Last Admin: 07/19/22 21:00 Dose: 6 unit Insulin Human Lispro (Insulin Lispro 100 Unit/Ml 3 Ml Vial) 5 unit SUBCUT TIDAC [facility] Last Admin: 07/19/22 17:51 Dose: 5 unit Magnesium Hydroxide (Milk Of Magnesia 30 Ml Oral.Susp) 30 ml PO DAILY PRN PRN Reason: Constipation Mirtazapine (Mirtazapine 15 Mg Tablet) 15 mg PO BEDTIME [facility] Last Admin: 07/19/22 20:50 Dose: 15 mg Prazosin HCl (Prazosin Hcl 5 Mg Capsule) 5 mg PO DAILY [facility]; Protocol Last Admin: 07/19/22 09:47 Dose: 5 mg Prazosin HCl (Prazosin Hcl 5 Mg Capsule) 10 mg PO BEDTIME [facility]; Protocol Last Admin: 07/19/22 20:56 Dose: 10 mg Quetiapine Fumarate (Quetiapine Fumarate 200 Mg Tablet) 200 mg PO BEDTIME [facility] Last Admin: 07/19/22 20:50 Dose: 200 mg Quetiapine Fumarate (Quetiapine Fumarate 50 Mg Tablet) 50 mg PO BID@0800,1400 [facility] Last Admin: 07/19/22 13:15 Dose: 50 mg Quetiapine Fumarate (Quetiapine Fumarate 50 Mg Tablet) 50 mg PO Q6H PRN PRN Reason: anxiety Last Admin: 07/20/22 03:32 Dose: 50 mg Tiotropium [place] (Tiotropium [place] 18 Mcg Cap.W.Dev) 1 puff INHALE RDAILY [facility] Last Admin: 07/19/22 09:51 Dose: 1 puff Allergies Allergies Allergy/AdvReac Type Severity Reaction Status Date / Time No Known Allergies Allergy Verified 05/09/22 15:01 Assessment & Plan Assessment & Plan (1) Post traumatic stress disorder (PTSD): Status: Acute Code(s): F43.10 - Post-traumatic stress disorder, unspecified (2) Bipolar II disorder: Status: Acute Code(s): F31.81 - Bipolar II disorder Plan Dick is a 61 y.o. Male who carries a dx of PTSD and Bipolar II DO. He arrived to [facility] on 07/10/22 due to flashbacks, nightmares, VH of shadows, AH, agitation, poor sleep, and passive SI without plan or intent. He had recent psych admission to on 06/15- due to VH of a black shadow, which he said was new for him. During this admission, his olanzapine 2.5 mg QHS was d/c?d due to lack of benefit, started on buspar, which was titrated up to 20 mg TID for anxiety. However, pt is now denying benefit on his medications. 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 Plan: Pt reports lack of benefit on buspar, will start risperdal 0.5 mg BID to target anxiety, hypervigilance, perceptual disturbances, and agitation. Will consider discontinuing buspar if risperdal is effective. Pt needs referral for OP dental, will prescribe orajel and PRN motrin due to teeth breaking. He is also interested in trulicity, as he was on this in the past to control blood glucose, this is not on formulary but may consider prescribing on discharge. 07/12: Increase risperdal to 1 mg BID, will increase klonopin to 1 mg BID but again pt understands this will not be continued on discharge, discussed with OP provider. 07/13: Start remeron 15 mg QHS for sleep, anxiety, PTSD, may work in conjunction with cymbalta. Will also lower cymbalta to 90 mg QHS, as evidence base does not show benefit on doses above 60 mg and pt has not noticed difference, trying to avoid polypharm. 07/14: Pt asking for something for sleep, will start seroquel 200 mg QHS. Will D/C risperdal, as pt denies any benefit and to avoid two neuroleptics. Will D/C buspar, as pt similarly denies any benefit, reduce polypharm. 07/15: Continue seroquel 200 mg, increase to 50 mg BID to target anxiety. 07/16: No medication changes, continue seroquel trial 07/17: slept well last night. continue current regimen aside from increasing gabapentin from 800 TID to 900 TID for neuropathic pain. 07/18: continues to sleep well. increase gabapentin to 1000 TID. sunday tentative DC date. 07/19 continue current medications. I spent minutes with the patient and/or on the patient floor today, great er than?50% of which was spent counseling/coordinating care. Reason for contiued inpatient stay Substantial Risk for: inability to function
[2022-07-19 12:31] LABS: Glucose, Whole Blood 305 mg/dL (60-115)
[2022-07-19 17:39] LABS: Glucose, Whole Blood 240 mg/dL (60-115)
[2022-07-19 20:33] LABS: Glucose, Whole Blood 295 mg/dL (60-115)
[2022-07-19] MEDS: DULoxetine HCl 30 MG CAPSULE.DR 90 MG PO (20:50)
[2022-07-19] MEDS: Mirtazapine 15 MG TABLET PO (20:50)
[2022-07-19] MEDS: QUEtiapine Fumarate 200 MG TABLET PO (20:50)
[2022-07-19 20:54] VITALS: BP 141/82; PULSE 80; RESP 18; TEMP 36.2; O2SAT 98
[2022-07-19] MEDS: Prazosin HCL 5 MG CAPSULE 10 MG PO (20:56)
[2022-07-20] MEDS: hydrOXYzine HCL 25 MG TABLET PO (03:32)
[2022-07-20] MEDS: QUEtiapine Fumarate 50 MG TABLET PO ×4 (03:32→14:07)
[2022-07-20 08:07] LABS: Glucose, Whole Blood 390 mg/dL (60-115)
[2022-07-20 08:45] VITALS: BP 143/83; PULSE 80; RESP 18; TEMP 36.5; O2SAT 99
[2022-07-20] MEDS: Gabapentin 400 MG CAPSULE PO ×3 (08:56→20:56)
[2022-07-20] MEDS: Gabapentin 600 MG TABLET PO ×3 (08:56→20:56)
[2022-07-20] MEDS: Prazosin HCL 5 MG CAPSULE PO (08:57)
[2022-07-20] MEDS: clonazePAM 1 MG TABLET PO ×2 (08:58→20:55)
[2022-07-20] MEDS: Insulin Glargine,Hum.rec.anlog 100 UNIT/ML 10 ML VIAL 30 UNIT SUBCUT (09:47)
[2022-07-20] MEDS: Insulin Lispro 100 UNIT/ML 3 ML VIAL SUBCUT ×4 (09:48→13:20)
[2022-07-20 12:02] LABS: Glucose, Whole Blood 323 mg/dL (60-115)
--- NOTE | 2022-07-20 13:37 | HO.PSYCHPN ---
Subjective Subjective Date of Service: 07/20/22 Reason For Visit: SI Interim History: calm, cooperative. states he is doing well. sleeping passably, minimal nightmares. ready to discharge. remains hyperglycemic, open to adjustments. also incontinent of urine last night, possibilities of UTI, sedation from seroquel/prazosin, or hyperglycemia causing the problem. will send UA today, pt in agreement. per staff, planning to DC tomorrow. c/o nocturnal urinary incontinence. Mental Status Exam Mental Status Exam Narrative: A&O. Large body stature, okay grooming, hospital attire. Good eye contact, attentive. No Tics or Tremors. No abnormal involuntary movements. Calm, cooperative, engaged. Non-pressured speech, spontaneous with regular rate and rhythm, normal volume and prosody. No prolonged speech latency or dysarthria. mood is good, affect is calm. no SI/SIB/HI/AVH expressed. Thoughts are coherent, organized. No known cognitive or memory impairment. Insight/ Judgment fair and adequate. Diagnostics Vital Signs (24Hr): Vital Signs - 24 hr 07/19/22 20:54 07/20/22 08:45 Temperature 97.2 F 97.7 F Pulse Rate 80 80 Respiratory Rate 18 18 Blood Pressure 141/82 H 143/83 H Pulse Oximetry 98 99 Oxygen Delivery Method Room Air Room Air BMI result Body Mass Index 29.7 Labs Results: 07/10/22 16:36 07/12/22 08:34 Labs: Laboratory Results - last 48 hr 07/18/22 07/18/22 07/19/22 16:55 20:01 08:10 POC Glucose 300 H 422 H* 317 H 07/19/22 07/19/22 07/19/22 12:25 17:35 20:28 POC Glucose 305 H 240 H 295 H 07/20/22 07/20/22 08:02 11:56 POC Glucose 390 H* 323 H Medications Medications Current Medications Acetaminophen (Acetaminophen 325 Mg Tablet) 650 mg PO Q6H PRN PRN Reason: Headache/Pain Mild Scale (1-3) Last Admin: 07/18/22 16:22 Dose: 650 mg Al Hydroxide/Mg Hydroxide (Magnesium Hydrox/Alum Hydrox 30 Ml Oral.Susp) 30 ml PO Q6H PRN PRN Reason: Heartburn/Nausea Albuterol Sulfate (Albuterol Sulfate (0.083%) 2.5 Mg/3 Ml Vial.Neb) 2.5 mg INHALE Q4H PRN PRN Reason: shortness of breath or wheezing Albuterol Sulfate (Albuterol Sulfate 90 Mcg 8 Gm Inhaler) 2 puff INHALE Q4H PRN PRN Reason: bronchospasm Benzocaine (Benzocaine 20 % Oral Gel 9 Gm Tube) 1 appl MUCOUS MEM QID PRN PRN Reason: dental pain Last Admin: 07/13/22 21:52 Dose: 1 appl Clonazepam (Clonazepam 1 Mg Tablet) 1 mg PO BID [facility] Last Admin: 07/20/22 08:58 Dose: 1 mg Clotrimazole (Clotrimazole 1 % Cream 15 Gm Tube) 1 appl TOPICAL BID [facility]; Protocol Last Admin: 07/20/22 10:27 Dose: Not Given Duloxetine HCl (Duloxetine Hcl 30 Mg Capsule.Dr) 90 mg PO BEDTIME [facility] Last Admin: 07/19/22 20:50 Dose: 90 mg Gabapentin (Gabapentin 600 Mg Tablet) 600 mg PO TID [facility] Last Admin: 07/20/22 08:56 Dose: 600 mg Gabapentin (Gabapentin 400 Mg Capsule) 400 mg PO TID [facility] Last Admin: 07/20/22 08:56 Dose: 400 mg Hydrocortisone (Hydrocortisone 1 % Cream 28.35 Gm Tube) 1 appl TOPICAL BID [facility]; Protocol Last Admin: 07/20/22 10:28 Dose: Not Given Hydroxyzine HCl (Hydroxyzine Hcl 25 Mg Tablet) 25 mg PO Q6H PRN PRN Reason: Anxiety Last Admin: 07/20/22 03:32 Dose: 25 mg Ibuprofen (Ibuprofen 800 Mg Tablet) 800 mg PO Q8H PRN PRN Reason: mod-severe pain Last Admin: 07/19/22 00:38 Dose: 800 mg Insulin Glargine (Insulin Glargine,Hum.Rec.Anlog 100 Unit/Ml 10 Ml Vial) 30 unit SUBCUT BID [facility] Last Admin: 07/20/22 09:47 Dose: 30 unit Insulin Human Lispro (Insulin Lispro 100 Unit/Ml 3 Ml Vial) 0 unit SUBCUT QIDACHS [facility]; Protocol Last Admin: 07/20/22 13:19 Dose: 8 unit Insulin Human Lispro (Insulin Lispro 100 Unit/Ml 3 Ml Vial) 5 unit SUBCUT TIDAC [facility] Last Admin: 07/20/22 13:20 Dose: 5 unit Magnesium Hydroxide (Milk Of Magnesia 30 Ml Oral.Susp) 30 ml PO DAILY PRN PRN Reason: Constipation Mirtazapine (Mirtazapine 15 Mg Tablet) 15 mg PO BEDTIME [facility] Last Admin: 07/19/22 20:50 Dose: 15 mg Prazosin HCl (Prazosin Hcl 5 Mg Capsule) 5 mg PO DAILY [facility]; Protocol Last Admin: 07/20/22 08:57 Dose: 5 mg Prazosin HCl (Prazosin Hcl 5 Mg Capsule) 10 mg PO BEDTIME [facility]; Protocol Last Admin: 07/19/22 20:56 Dose: 10 mg Quetiapine Fumarate (Quetiapine Fumarate 200 Mg Tablet) 200 mg PO BEDTIME [facility] Last Admin: 07/19/22 20:50 Dose: 200 mg Quetiapine Fumarate (Quetiapine Fumarate 50 Mg Tablet) 50 mg PO BID@0800,1400 [facility] Last Admin: 07/20/22 08:58 Dose: 50 mg Quetiapine Fumarate (Quetiapine Fumarate 50 Mg Tablet) 50 mg PO Q6H PRN PRN Reason: anxiety Last Admin: 07/20/22 10:38 Dose: 50 mg Tiotropium Elton (Tiotropium Elton 18 Mcg Cap.W.Dev) 1 puff INHALE RDAILY [facility] Last Admin: 07/20/22 08:55 Dose: 1 puff Allergies Allergies Allergy/AdvReac Type Severity Reaction Status Date / Time No Known Allergies Allergy Verified 05/09/22 15:01 Assessment & Plan Assessment & Plan (1) Post traumatic stress disorder (PTSD): Status: Acute Code(s): F43.10 - Post-traumatic stress disorder, unspecified (2) Bipolar II disorder: Status: Acute Code(s): F31.81 - Bipolar II disorder Plan Dick is a 61 y.o. Male who carries a dx of PTSD and Bipolar II DO. He arrived to [facility] [place] [place] ED on 07/10/22 due to flashbacks, nightmares, VH of shadows, AH, agitation, poor sleep, and passive SI without plan or intent. He had recent psych admission to on 06/15- due to VH of a black shadow, which he said was new for him. During this admission, his olanzapine 2.5 mg QHS was d/c?d due to lack of benefit, started on buspar, which was titrated up to 20 mg TID for anxiety. However, pt is now denying benefit on his medications. 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 Plan: Pt reports lack of benefit on buspar, will start risperdal 0.5 mg BID to target anxiety, hypervigilance, perceptual disturbances, and agitation. Will consider discontinuing buspar if risperdal is effective. Pt needs referral for OP dental, will prescribe orajel and PRN motrin due to teeth breaking. He is also interested in trulicity, as he was on this in the past to control blood glucose, this is not on formulary but may consider prescribing on discharge. 07/12: Increase risperdal to 1 mg BID, will increase klonopin to 1 mg BID but again pt understands this will not be continued on discharge, discussed with OP provider. 07/13: Start remeron 15 mg QHS for sleep, anxiety, PTSD, may work in conjunction with cymbalta. Will also lower cymbalta to 90 mg QHS, as evidence base does not show benefit on doses above 60 mg and pt has not noticed difference, trying to avoid polypharm. 07/14: Pt asking for something for sleep, will start seroquel 200 mg QHS. Will D/C risperdal, as pt denies any benefit and to avoid two neuroleptics. Will D/C buspar, as pt similarly denies any benefit, reduce polypharm. 07/15: Continue seroquel 200 mg, increase to 50 mg BID to target anxiety. 07/16: No medication changes, continue seroquel trial 07/17: slept well last night. continue current regimen aside from increasing gabapentin from 800 TID to 900 TID for neuropathic pain. 07/18: continues to sleep well. increase gabapentin to 1000 TID. sunday tentative DC date. 07/19 continue current medications. 07/20: urinary incontinence last NOC, sending UA today. POC continues elevated, medicine to adjust insulin again today. bar staff to provide DM education prior to discharge. discharge tomorrow. I spent ___35___ minutes with the patient and/or on the patient floor today, greater than?50% of which was spent counseling/coordinating care. Reason for contiued inpatient stay Substantial Risk for: inability to function and rapid decompensation
[2022-07-20 17:29] LABS: Appearance Urine Clear; Color Urine Yellow; Glucose Urine UA >=1000 mg/dL (Negative); Leukocyte Esterase Urine Negative (Negative); Nitrite Urine Negative (Negative); Urine Blood Negative (Negative); Urine Ketones Negative (Negative); Urine Protein Negative (Neg-Trace)
[2022-07-20 17:48] LABS: Glucose, Whole Blood 310 mg/dL (60-115)
[2022-07-20 18:01] LABS: Bacteria Urine None Seen (None Seen); Hyaline Casts Urine 0-2 /LPF (0-2); RBC Urine 0-2 /HPF (0-2); Squamous Epithelial Cell Urine 0-2 /HPF (0-2); WBC Urine 0-5 /HPF (0-5)
--- NOTE | 2022-07-20 18:37 | PC.NURSE ---
Patient became very angry when he saw what he had received for dinner, throwing tray cover and refusing the insulin. MD notified, no further orders at this time.
[2022-07-20 20:40] VITALS: BP 153/87; PULSE 78; RESP 18; TEMP 36.6; O2SAT 99
[2022-07-20] MEDS: Mirtazapine 15 MG TABLET PO (20:55)
[2022-07-20] MEDS: QUEtiapine Fumarate 200 MG TABLET PO ×2 (20:55→21:45)
[2022-07-20] MEDS: Prazosin HCL 5 MG CAPSULE 10 MG PO (20:56)
[2022-07-20] MEDS: DULoxetine HCl 30 MG CAPSULE.DR 90 MG PO (20:56)
[2022-07-21] MEDS: QUEtiapine Fumarate 50 MG TABLET PO ×2 (01:57→08:46)
[2022-07-21 08:31] LABS: Glucose, Whole Blood 347 mg/dL (60-115)
[2022-07-21 08:35] VITALS: BP 138/76; PULSE 93; RESP 18; TEMP 36.6; O2SAT 98
[2022-07-21] MEDS: Prazosin HCL 5 MG CAPSULE PO (08:45)
[2022-07-21] MEDS: Gabapentin 600 MG TABLET PO (08:46)
[2022-07-21] MEDS: clonazePAM 1 MG TABLET PO (08:46)
[2022-07-21] MEDS: Gabapentin 400 MG CAPSULE PO (08:46)
[2022-07-21] MEDS: Insulin Glargine,Hum.rec.anlog 100 UNIT/ML 10 ML VIAL 30 UNIT SUBCUT (09:46)
[2022-07-21] MEDS: Insulin Lispro 100 UNIT/ML 3 ML VIAL SUBCUT ×4 (09:47→13:03)
[2022-07-21 12:10] LABS: Glucose, Whole Blood 274 mg/dL (60-115)
--- NOTE | 2022-07-21 13:48 | PC.NURSE ---
I am ready to go...I am going to call my brother when I get home. Patient denies SI/HI, patient denies AH/VH, states he feels good about discharge and ready to leave. Reviewed discharge instructions, belongings and valuables with patient. Patient verbalized understanding. Completed several episodes of diabetic teaching, insulin administration with patient. Patient able to verbalize understanding, demonstrated drawing up correct dosage of insulin and correct administration technique. Patient declined an application helper. All questions clarified with provider.
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
== END 2022-07-21 13:50 | disposition home health service (06) | DRG 885 ==
LOC: HO.ED 18:35 → HO.PADLT16 07-11 13:45
PROVIDERS: Nurse Practitioner Family; Social Worker; Admitting Provider Psychiatry & Neurology Psychiatry; Emergency Provider Emergency Medicine; Visit Provider Psychiatry & Neurology Psychiatry
DX: F31.81 Bipolar II disorder (principal); R45.851 Suicidal ideations; F43.10 Post-traumatic stress disorder, unspecified; F41.9 Anxiety disorder, unspecified; K21.9 Gastro-esophageal reflux disease without esophagitis; M10.9 Gout, unspecified; E11.65 Type 2 diabetes mellitus with hyperglycemia; E11.40 Type 2 diabetes mellitus with diabetic neuropathy, unspecified; F17.210 Nicotine dependence, cigarettes, uncomplicated; Z20.822 Contact with and (suspected) exposure to COVID-19; Z71.6 Tobacco abuse counseling; Z79.4 Long term (current) use of insulin; Z79.899 Other long term (current) drug therapy
CPT/HCPCS: 36415; 80048; 80053; 80061; 80076; 80307; 81001; 82077; 82607; 82746; 82947; 83036; 85025; 87635; 93005; 99285

== ENCOUNTER 2022-08-04 11:03 | Emergency (ER) | payer OTHER, SELFPAY ==
[2022-08-04 11:34] VITALS: BP 139/80; PULSE 90; RESP 18; TEMP 36; O2SAT 98; BMI 30.4
[2022-08-04 12:05] LABS: MANUAL DIFF FLAG NO
[2022-08-04 12:07] LABS: Basophils Absolute Auto 0.1 X10*3/uL (0.0-0.2); Eosinophils Absolute Auto 0.1 X10*3/uL (0.0-0.4); Eosinophils Percent Auto 2.9 % (0-4); Hematocrit 36.9 % (42.0-52.0); Imm Gran Abs Auto 0.02 X10*3/uL (0.00-0.03); Imm Gran Pct Auto 0.4 % (0.0-0.4); Lymphocytes Absolute Auto 1.8 X10*3/uL (1.2-4.9); Lymphocytes Percent Auto 36.8 % (20-40); Mean Corpuscular HGB Conc 35.2 g/dl (31.0-36.0); Mean Corpuscular Hemoglobin 30.9 pg (27.0-33.0); Mean Corpuscular Volume 87.6 fL (80.0-98.0); Mean Platelet Volume 11.1 fL (9.4-12.4); Monocytes Absolute Auto 0.3 X10*3/uL (0.1-1.2); Monocytes Percent Auto 5.6 % (2-11); Neutrophils Absolute Auto 2.6 x10*3/uL (2.0-8.3); Neutrophils Percent Auto 53.3 % (45-73); Platelet Count 165 X10*3/uL (160-400); Red Blood Count 4.21 X10*6/uL (4.60-5.80); White Blood Count 4.8 X10*3/uL (4.8-10.8)
[2022-08-04 12:09] LABS: Appearance Urine Clear; Color Urine Yellow; Glucose Urine UA >=1000 mg/dL (Negative); Leukocyte Esterase Urine Negative (Negative); Nitrite Urine Negative (Negative); PH 5.5 (5.0-9.0); Specific Gravity - Urine 1.025 (1.005-1.025); Urine Blood Negative (Negative); Urine Ketones Negative (Negative); Urine Protein Negative (Neg-Trace)
[2022-08-04 12:26] LABS: Bacteria Urine None Seen (None Seen); Hyaline Casts Urine 0-2 /LPF (0-2); RBC Urine 0-2 /HPF (0-2); Squamous Epithelial Cell Urine 0-2 /HPF (0-2)
[2022-08-04 12:53] LABS: Alanine Aminotransferase 19 U/L (0-40); Albumin Level 4.1 g/dL (3.5-5.0); Alkaline Phosphatase 127 U/L (39-117); Anion Gap 16 (12-20); Aspartate Amino Transferase 15 U/L (5-37); Bilirubin Direct 0.2 mg/dL (0.0-0.5); Bilirubin Total 0.7 mg/dL (0.0-1.0); Blood Urea Nitrogen 11 mg/dL (9-16); Calcium 8.9 mg/dL (8.4-10.2); Carbon Dioxide 24 mmol/L (22-29); Chloride 99 mmol/L (96-108); Creatinine Clr Calc Pharmacy 80.7; Estimated Glomerular Filt Rate > 60; Glucose Random 483 mg/dL (60-115); Potassium 4.2 mmol/L (3.3-5.1); Sodium 135 mmol/L (135-145); Total Protein 7.2 g/dL (6.5-8.0)
--- NOTE | 2022-08-04 13:07 | PC.NURSE ---
pt states that he has not taken his blood sugar meds in weeks. denies any s/sx of hyperglycemia.
--- NOTE | 2022-08-04 16:22 | ED_ITS ---
HPI - General Adult General Chief complaint: General Medical Stated complaint: kidney pain Time Seen by Provider: 08/04/22 16:02 Source: patient Mode of arrival: ambulatory Limitations: no limitations History of Present Illness HPI narrative: Patient comes to the emergency room complaining of bilateral lower back pain and whitish discharge around the glans. Patient states that he has had lower back pain for a couple of weeks, he has no C-spine tenderness, denies any injury, denies urinary/fecal incontinence/retention. Patient states that he has no hematuria or dysuria. Any time that he moves or rotates a certain way, his lower back hurts. Also, patient states that for several weeks he has had whitish discharge around the glans. Patient states it is a bit erythematous and itchy, no urethral discharge Related Data Home Medications Medication Instructions Recorded Confirmed clotrimazole 1 % topical cream 1 applic topical BID 07/10/22 07/10/22 hydrocortisone 1 % topical cream 1 appl topical BID 07/10/22 07/10/22 Previous Rx's Medication Instructions Recorded albuterol sulfate 2.5 mg/3 mL 2.5 mg (3 mL) inhalation Q4H PRN 06/22/22 (0.083 %) solution for nebulization shortness of breath or wheezing #90 mL albuterol sulfate 90 mcg/actuation 2 puff inhalation Q4H PRN 06/22/22 aerosol inhaler (Ventolin HFA) bronchospasm #6.7 grams insulin glargine 100 unit/mL 20 unit (0.2 mL) subcut BEDTIME 06/22/22 subcutaneous solution (Lantus #10 mL U-100 Insulin) prazosin 5 mg capsule 5 mg PO DAILY #30 caps 06/22/22 prazosin 5 mg capsule 10 mg PO BEDTIME #60 caps 06/22/22 tiotropium bromide 18 mcg capsule 18 mcg inhalation RDAILY #90 06/22/22 with inhalation device (Spiriva inhalations with HandiHaler) blood sugar diagnostic #10 ea 07/21/22 duloxetine 30 mg capsule,delayed 90 mg PO BEDTIME #90 caps 07/21/22 release gabapentin 400 mg capsule 400 mg PO TID #90 caps 07/21/22 gabapentin 600 mg tablet 600 mg PO TID #90 tabs 07/21/22 hydroxyzine HCl 25 mg tablet 25 mg PO Q6H PRN Anxiety #45 tabs 07/21/22 ibuprofen 800 mg tablet 800 mg PO Q8H PRN mod-severe pain 07/21/22 #30 tabs insulin syringe-needle U-100 1 mL #100 ea 07/21/22 29 gauge x 1/2 (Insulin Syringe) lancets 33 gauge #100 ea 07/21/22 mirtazapine 15 mg tablet 15 mg PO BEDTIME #30 tabs 07/21/22 quetiapine 200 mg tablet 200 mg PO BEDTIME #30 tabs 07/21/22 quetiapine 50 mg tablet 50 mg PO BID@0800,1400 #60 tabs 07/21/22 cyclobenzaprine 10 mg tablet 10 mg PO BEDTIME PRN muscle spasm 08/04/22 #7 tabs insulin glargine 100 unit/mL (3 24 unit (0.24 mL) subcut QAM #15 mL 08/04/22 mL) subcutaneous pen (Lantus Solostar U-100 Insulin) miconazole nitrate 2 % topical 1 appl topical BID #30 grams 08/04/22 cream (Antifungal Cream (miconazole)) Allergies Allergy/AdvReac Type Severity Reaction Status Date / Time No Known Allergies Allergy Verified 05/09/22 15:01 Review of Systems Review of Systems: Constitutional : No Weight loss, No Fever, No Chills, No Night Sweats, No Fatigue, No Malaise ENT/Mouth : No Hearing loss, No Ear Pain, No Nasal Congestion, No Sinus Pain, No Hoarseness, No sore throat, No Rhinorrhea, No Swallowing Difficulty Eyes: No Eye Pain, No Swelling, No Redness, No Foreign Body, No Discharge, No Vision Changes Cardiovascular : No Chest Pain, No SOB, No Dyspnea on Exertion, No Orthopnea, No Edema, No Palpitations Respiratory : No Cough, No Sputum, No Wheezing, No Smoke Exposure, No Dyspnea Gastrointestinal : No Nausea, No Vomiting, No Diarrhea, No Constipation, No abdominal Pain, No Hematochezia, No Melena Genitourinary : Complaining of whitish discharge around the glands, No Dysuria, No Urinary Frequency, No Hematuria, No Urinary Incontinence, No Urgency, No Flank Pain, No Urinary Flow Changes, No Hesitancy Musculoskeletal : Complaining of lower bilateral pain, No joint pain, No Myalgias, No Joint Swelling Skin : No Skin Lesions, No rash Neuro : No Weakness, No Numbness, No Paresthesias, No Loss of Consciousness, No Dizziness, No Headache Psych : No Anxiety/Panic, No Depression, No SI/HI/AH/VH, No Social Issues, Heme/Lymph: No Bruising, No Bleeding,No Lymphadenopathy Endocrine : No Polyuria, No Polydipsia, No Temperature Intolerance [facility] Past Medical History Medical History Anxiety Asthma-COPD overlap syndrome Back pain Bipolar II disorder Chronic bronchitis with wheezing Depression Diabetes GERD (gastroesophageal reflux disease) Gout Hallucination, visual Hyperhidrosis Neuropathy Pneumonitis Post traumatic stress disorder (PTSD) PTSD (post-traumatic stress disorder) Sarcoidosis Surgical History History of bronchoscopy Hx of colonoscopy Family History Family History Father Myocardial infarction Mother No problems noted. Social History Social History Household Members: None Housing: House Housing Other:: rent Do you presently have visiting nurse or other home services: Yes Alcohol intake: current Alcohol intake frequency: holidays/special occasions only Patient Tobacco Use Status: Current everyday Tobacco user Tobacco use type: Cigarette Cigarette Packs Per Day: 0 Cigarettes Per Day: 3 Years Smoked: 45 e-Cigarette/Vaping Use: Never Used Second Hand Smoke Exposure: Yes Substance Use Type: Marijuana Advance Directives: No Advance Directives Information Provided: No service: No Sexual orientation: Straight/Heterosexual Physical Exam ED Vital Signs: Vital Signs - 24 hr 08/04/22 11:34 Temperature 96.8 F Pulse Rate 90 Respiratory Rate 18 Blood Pressure 139/80 Pulse Oximetry 98 Oxygen Delivery Method Room Air BMI result Body Mass Index 30.4 Const Other: Appearance: Alert. Oriented X3. No acute distress. Well appearing Eyes: Pupils equal, round and reactive to light. ENT: Pharynx normal. Neck: Normal inspection. Neck supple. No lymph nodes noted. No crepitus CVS: Normal heart rate and rhythm. Pulses normal. Normal S1 and S2 Respiratory: No respiratory distress. Breath sounds normal. No Wheezing. No rales Abdomen: Soft and nontender. No rigidity. No distention. Back: Pain to palpation over the paraspinal muscles bilaterally, no pain to palpation in the thoracic or lumbar spine, negative straight leg raise test bilaterally : Penile candidiasis present. Skin: Skin warm and dry. Normal skin color. Normal skin turgor. Extremities: No lower extremity edema. No Lacerations. No Rash Neuro: Oriented X 3. No motor deficit. No sensory deficit. Moving all extremities. No slurred speech. CN 2 through 12 grossly intact Psych: calm, cooperative, normal affect Course Course Course Narrative: I discussed the physical exam with the patient, patient has pain over the paraspinal muscles, patient was given IV Toradol. I discussed with the patient that he would benefit from physical therapy. The discharge on the patient's penis is likely candidiasis, patient will be prescribed with an antifungal topical medication. Patient is diabetic, makes him prone to disc can of infection. Patient's initial glucose was 483, patient given IV fluids and 10 units of insulin. Patient's glucose decreased to 204. Patient has daily visiting nurses at home, states he has enough insulin at home. Patient has visiting nurses at home daily to give him his insulin daily dose, patient received only 20 units of Lantus once a day, no rapid acting insulin. Our comp field case manager was able to get in touch with the patient's visiting nurse company and they were able to confirm the dose. Patient's Lantus will be increased to 24 units daily. Patient needs to have close monitoring by his primary care physician. I do not think that 24 units of Lantus will help the patient control his blood glucose. However, patient is unable to care for himself and administer his own insulin, patient would need more care which at the moment he does not have. Medical Decision Making Lab Data Result diagrams: 08/04/22 11:59 08/04/22 11:59 Labs: Lab Results 08/04/22 08/04/22 08/04/22 Range/Units 11:59 11:59 11:59 WBC 4.8 (4.8-10.8) X10*3/uL RBC 4.21 L (4.60-5.80) X10*6/uL Hgb 13.0 L (14.0-18.0) g/dl Hct 36.9 L (42.0-52.0) % MCV 87.6 (80.0-98.0) fL MCH 30.9 (27.0-33.0) pg MCHC 35.2 (31.0-36.0) g/dl RDW 12.0 (11.0-16.0) % Plt Count 165 (160-400) X10*3/uL MPV 11.1 (9.4-12.4) fL Immature Gran % (Auto) 0.4 (0.0-0.4) % Neut % (Auto) 53.3 (45-73) % Lymph % (Auto) 36.8 (20-40) % [place] % (Auto) 5.6 (2-11) % Eos % (Auto) 2.9 (0-4) % Baso % (Auto) 1.0 (0-2) % Lymph # (Auto) 1.8 (1.2-4.9) X10*3/uL [place] # (Auto) 0.3 (0.1-1.2) X10*3/uL Eos # (Auto) 0.1 (0.0-0.4) X10*3/uL Baso # (Auto) 0.1 (0.0-0.2) X10*3/uL Abs Immat Gran (auto) 0.02 (0.00-0.03) X10*3/uL Absolute Neuts (auto) 2.6 (2.0-8.3) x10*3/uL Absolute Nucleated RBC 0.000 (0.0-0.012) X10*3/uL Nucleated RBC % (auto) 0.0 (0.0-0.2) /100WBC Sodium 135 (135-145) mmol/L Potassium 4.2 (3.3-5.1) mmol/L Chloride 99 (96-108) mmol/L Carbon Dioxide 24 (22-29) mmol/L Anion Gap 16 (12-20) BUN 11 (9-16) mg/dL Creatinine 1.20 (0.5-1.4) mg/dL Estim Creat Clear Calc 80.7 Estimated GFR > 60 POC Glucose (60-115) mg/dL Random Glucose 483 H* (60-115) mg/dL Calcium 8.9 (8.4-10.2) mg/dL Total Bilirubin 0.7 (0.0-1.0) mg/dL Direct Bilirubin 0.2 (0.0-0.5) mg/dL AST 15 (5-37) U/L ALT 19 (0-40) U/L Alkaline Phosphatase 127 H (39-117) U/L Total Protein 7.2 (6.5-8.0) g/dL Albumin 4.1 (3.5-5.0) g/dL Urine Color Yellow Urine Appearance Clear Urine pH 5.5 (5.0-9.0) Ur Specific [place] 1.025 (1.005-1.025) Urine Protein Negative (Neg-Trace) mg/dL Urine Glucose (UA) >=1000 H (Negative) mg/dL Urine Ketones Negative (Negative) mg/dL Urine Blood Negative (Negative) Urine Nitrite Negative (Negative) Ur Leukocyte Esterase Negative (Negative) Urine RBC 0-2 (0-2) /HPF Urine WBC 6-10 H (0-5) /HPF Ur Squamous Epith Cells 0-2 (0-2) /HPF Urine Bacteria None Seen (None Seen) Hyaline Casts 0-2 (0-2) /LPF Acetone, Qual Negative (Negative) 08/04/22 Range/Units 20:01 WBC (4.8-10.8) X10*3/uL RBC (4.60-5.80) X10*6/uL Hgb (14.0-18.0) g/dl Hct (42.0-52.0) % MCV (80.0-98.0) fL MCH (27.0-33.0) pg MCHC (31.0-36.0) g/dl RDW (11.0-16.0) % Plt Count (160-400) X10*3/uL MPV (9.4-12.4) fL Immature Gran % (Auto) (0.0-0.4) % Neut % (Auto) (45-73) % Lymph % (Auto) (20-40) % [place] % (Auto) (2-11) % Eos % (Auto) (0-4) % Baso % (Auto) (0-2) % Lymph # (Auto) (1.2-4.9) X10*3/uL [place] # (Auto) (0.1-1.2) X10*3/uL Eos # (Auto) (0.0-0.4) X10*3/uL Baso # (Auto) (0.0-0.2) X10*3/uL Abs Immat Gran (auto) (0.00-0.03) X10*3/uL Absolute Neuts (auto) (2.0-8.3) x10*3/uL Absolute Nucleated RBC (0.0-0.012) X10*3/uL Nucleated RBC % (auto) (0.0-0.2) /100WBC Sodium (135-145) mmol/L Potassium (3.3-5.1) mmol/L Chloride (96-108) mmol/L Carbon Dioxide (22-29) mmol/L Anion Gap (12-20) BUN (9-16) mg/dL Creatinine (0.5-1.4) mg/dL Estim Creat Clear Calc Estimated GFR POC Glucose 204 H (60-115) mg/dL Random Glucose (60-115) mg/dL Calcium (8.4-10.2) mg/dL Total Bilirubin (0.0-1.0) mg/dL Direct Bilirubin (0.0-0.5) mg/dL AST (5-37) U/L ALT (0-40) U/L Alkaline Phosphatase (39-117) U/L Total Protein (6.5-8.0) g/dL Albumin (3.5-5.0) g/dL Urine Color Urine Appearance Urine pH (5.0-9.0) Ur Specific [place] (1.005-1.025) Urine Protein (Neg-Trace) mg/dL Urine Glucose (UA) (Negative) mg/dL Urine Ketones (Negative) mg/dL Urine Blood (Negative) Urine Nitrite (Negative) Ur Leukocyte Esterase (Negative) Urine RBC (0-2) /HPF Urine WBC (0-5) /HPF Ur Squamous Epith Cells (0-2) /HPF Urine Bacteria (None Seen) Hyaline Casts (0-2) /LPF Acetone, Qual (Negative) Discharge Plan Discharge Clinical Impression: Acute hyperglycemia, Candidiasis of penis, Lower back pain Patient Disposition: Home, Self-Care Instructions: Yeast Infection (ED), Back Pain (ED), Diabetic Hyperglycemia (ED), Diabetes and Exercise (ED) Additional Instructions: Please increase your insulin glargine to 32 units subcutaneous b.i.d. scheduled Please follow-up with your primary care physician tomorrow. If you have any worsening or new symptoms, please return to the emergency room or call 911 Prescriptions: New cyclobenzaprine 10 mg tablet 10 mg PO BEDTIME PRN (Reason: muscle spasm) Qty: 7 0RF miconazole nitrate [Antifungal Cream (miconazole)] 2 % cream 1 appl topical BID Qty: 30 0RF insulin glargine [Lantus Solostar U-100 Insulin] 100 unit/mL (3 mL) insulin pen 24 unit subcut QAM Qty: 15 0RF No Action hydrocortisone 1 % cream 1 appl topical BID clotrimazole 1 % cream 1 applic topical BID gabapentin 400 mg Capsule 400 mg PO TID Qty: 90 0RF duloxetine 30 mg Capsule,Delayed Release(Dr/Ec) 90 mg PO BEDTIME Qty: 90 0RF gabapentin 600 mg Tablet 600 mg PO TID Qty: 90 0RF ibuprofen 800 mg Tablet 800 mg PO Q8H PRN (Reason: mod-severe pain) Qty: 30 0RF quetiapine 200 mg Tablet 200 mg PO BEDTIME Qty: 30 0RF hydroxyzine HCl 25 mg Tablet 25 mg PO Q6H PRN (Reason: Anxiety) Qty: 45 0RF mirtazapine 15 mg Tablet 15 mg PO BEDTIME Qty: 30 0RF quetiapine 50 mg Tablet 50 mg PO BID@0800,1400 Qty: 60 0RF (DME) blood sugar diagnostic Strip See Rx Instructions Not Applicable BID Qty: 10 0RF Rx Instructions: As directed ([facility]) insulin syringe-needle U-100 [Insulin Syringe] 1 mL 29 gauge x 1/2 syringe See Rx Instructions .Route Qty: 100 0RF Rx Instructions: As directed (DME) lancets 33 gauge misc See Rx Instructions Not Applicable BID Qty: 100 0RF Rx Instructions: As directed Spiriva with HandiHaler 18 mcg Capsule, W/Inhalation Device 18 mcg inhalation RDAILY Qty: 90 1RF albuterol sulfate 2.5 mg /3 mL (0.083 %) Solution For Nebulization 2.5 mg inhalation Q4H PRN (Reason: shortness of breath or wheezing) Qty: 90 2RF prazosin 5 mg Capsule 10 mg PO BEDTIME Qty: 60 2RF Protocol: Hold for SBP< HOLD for SBP < : 90 prazosin 5 mg Capsule 5 mg PO DAILY Qty: 30 2RF Protocol: Hold for SBP< HOLD for SBP < : 90 albuterol sulfate [Ventolin HFA] 90 mcg/actuation Hfa Aerosol Inhaler 2 puff inhalation Q4H PRN (Reason: bronchospasm) Qty: 6.7 2RF insulin glargine [Lantus U-100 Insulin] 100 unit/mL Solution 20 unit subcut BEDTIME Qty: 10 2RF
[2022-08-04] MEDS: 0.9 % Sodium Chloride 1,000 ML 999 ML IVCONT (16:34)
[2022-08-04 16:47] LABS: Acetone, serum QL Negative (Negative)
[2022-08-04] MEDS: Ketorolac Tromethamine 30 MG/ML VIAL IVPUSH (16:52)
[2022-08-04] MEDS: Insulin Regular, Human 100 UNIT/ML 3 ML VIAL 10 UNIT IVPUSH (16:52)
[2022-08-04 20:06] LABS: Glucose, Whole Blood 204 mg/dL (60-115)
[2022-08-04 21:33] LABS: Glucose, Whole Blood 210 mg/dL (60-115)
--- NOTE | 2022-08-04 21:52 | MHC.CM.ED ---
Dr. Romero requested that CM check with [facility] about pt insulin, as pt tells MD that he does not know how to give himself insulin and that a nurse comes every day, but he does not know form where. CM call [facility] nurse 18/06 line. Per [facility], pt has daily visiting nurse services from [facility]. [facility] called. Spoke with nurse rehab/pre vocational counselor, Raquel, who confirmed that pt receives daily [facility] and that they give him 20 units of lantis daily. Per Raquel, any medication changes need an order to be faxed to [facility] at [phone]. ED H&P and prescription for insulin change faxed. ED H&P and prescription given to pt to give to [facility] nurse tomorrow. Reviewed with patient and Christian ROGERS. Dr. Romero aware.
== END 2022-08-04 21:44 | disposition home or self-care (01) ==
PROVIDERS: Emergency Provider Emergency Medicine; PCP Internal Medicine
DX: B37.42 Candidal balanitis (principal); M54.50 Low back pain, unspecified; E11.65 Type 2 diabetes mellitus with hyperglycemia; F17.210 Nicotine dependence, cigarettes, uncomplicated; Z71.6 Tobacco abuse counseling; Z79.899 Other long term (current) drug therapy
CPT/HCPCS: 36415; 80053; 81001; 82009; 82248; 82947; 85025; 96361; 96374; 96375; 99284; J1885

== ENCOUNTER → 2022-10-13 14:09 | Outpatient (BNVA) | payer OTHER, SELFPAY | PROVIDERS: PCP Internal Medicine; Visit Provider Hospitalist | DX: J44.9 Chronic obstructive pulmonary disease, unspecified (principal); J18.9 Pneumonia, unspecified organism; D86.9 Sarcoidosis, unspecified | CPT/HCPCS: 99212 ==

== ENCOUNTER 2023-02-08 10:45 | Emergency (ER) | payer OTHER, SELFPAY ==
--- NOTE | 2023-02-08 | ECG_ITS ---
Test Reason : DIFF BREATHING Blood Pressure : / mmHG Vent. Rate : 081 BPM Atrial Rate : 081 BPM P-R Int : 194 ms QRS Dur : 096 ms QT Int : 390 ms P-R-T Axes : 054 010 022 degrees QTc Int : 453 ms Normal sinus rhythm ST elevation, consider early repolarization Borderline ECG When compared with ECG of 11-JUL-2022 11:18, No significant change was found Referred By: Generic ED Physician Electronically Signed By:Kiko Valle
--- NOTE | ~2023-02-08 | XR_ITS ---
EXAMINATION: XR CHEST CLINICAL INFORMATION: Shortness of breath COMPARISON: June 15, 2022 and studies dating back to June 01, 2020 TECHNIQUE: 2 views of the chest were obtained. FINDINGS: No significant abnormality is noted involving the heart, lungs, mediastinum, bony thorax or soft tissues. XR/XR chest 2V IMPRESSION: No acute disease.
[2023-02-08 10:54] VITALS: BP 142/72; PULSE 79; RESP 19; TEMP 36.6; O2SAT 99; BMI 29.9
--- NOTE | 2023-02-08 11:11 | PC.NURSE ---
Patient with non productive cough is daily smoker no recent travel or sick contacts reported. LS congested patient reports chest pain at rest describes as burning no exacerbated with cough or palpation AOx 4 neuros intact no distress noted
[2023-02-08 11:29] LABS: MANUAL DIFF FLAG NO
[2023-02-08 11:35] LABS: IDNOW Serial# 08D9AD1C
[2023-02-08 11:36] LABS: COVID-19 Test Negative (Negative); IDNOW Serial# BCCEAD1C; Influenza A Negative (Negative); Influenza B2 Negative (Negative)
[2023-02-08 11:41] LABS: Basophils Percent Auto 0.9 % (0-2); Eosinophils Absolute Auto 0.1 X10*3/uL (0.0-0.4); Eosinophils Percent Auto 3.1 % (0-4); Hematocrit 40.7 % (42.0-52.0); Hemoglobin 14.1 g/dl (14.0-18.0); Imm Gran Abs Auto 0.03 X10*3/uL (0.00-0.03); Imm Gran Pct Auto 0.7 % (0.0-0.4); Lymphocytes Absolute Auto 1.9 X10*3/uL (1.2-4.9); Lymphocytes Percent Auto 41.8 % (20-40); Mean Corpuscular HGB Conc 34.6 g/dl (31.0-36.0); Mean Corpuscular Hemoglobin 30.9 pg (27.0-33.0); Mean Corpuscular Volume 89.1 fL (80.0-98.0); Mean Platelet Volume 11.2 fL (9.4-12.4); Monocytes Absolute Auto 0.3 X10*3/uL (0.1-1.2); Monocytes Percent Auto 5.5 % (2-11); Neutrophils Absolute Auto 2.2 x10*3/uL (2.0-8.3); Platelet Count 119 X10*3/uL (160-400); Red Blood Count 4.57 X10*6/uL (4.60-5.80); Red Cell Distribution Width 12.6 % (11.0-16.0); White Blood Count 4.5 X10*3/uL (4.8-10.8)
[2023-02-08 12:00] LABS: Alanine Aminotransferase 34 U/L (0-40); Albumin Level 4.3 g/dL (3.5-5.0); Alkaline Phosphatase 114 U/L (39-117); Anion Gap 15 (12-20); Aspartate Amino Transferase 24 U/L (5-37); Bilirubin Direct 0.2 mg/dL (0.0-0.5); Bilirubin Total 0.8 mg/dL (0.0-1.0); Blood Urea Nitrogen 11 mg/dL (9-16); Calcium 9.3 mg/dL (8.4-10.2); Carbon Dioxide 24 mmol/L (22-29); Chloride 103 mmol/L (96-108); Creatinine Clr Calc Pharmacy 96.9; Estimated Glomerular Filt Rate > 60; Glucose Random 249 mg/dL (60-115); Magnesium 1.7 mg/dL (1.6-2.6); Potassium 4.4 mmol/L (3.3-5.1); Sodium 138 mmol/L (135-145); Total Protein 7.1 g/dL (6.5-8.0)
--- NOTE | 2023-02-08 12:16 | ED_ITS ---
HPI - URI/Sore Throat General Chief Complaint: Upper Respiratory Symptoms Stated Complaint: Diff breathing Time Seen by Provider: 02/08/23 11:12 Source: patient and RN notes reviewed Mode of arrival: ambulatory Limitations: no limitations History of Present Illness HPI Narrative: This is a 62-year-old male, with a past medical history of sarcoidosis followed by Dr. Hay, PTSD, bipolar II disorder, diabetes, glaucoma, asthma, and COPD, who presents to the emergency department with complaints of productive c ough, shortness of breath, and burning chest pain x 5 days. He states that he has had no fevers or chills. He describes his chest pain as a burning like pain that is midsternal, constant, and does not radiate. He states that the pain worsens with ambulation and climbing stairs. He states that he typically does not have a productive cough, states that the sputum is clear, but dark in color. No other complaints or concerns at this time. MD elicited complaint: cough Onset (ago): day(s) Consistency: constant Severity: moderate Description of mucous: clear, yellow and green Able to tolerate fluids by mouth: Yes Exacerbating factors: nothing Relieving factors: nothing Associated symptoms: cough, chest pain and shortness of breath Treatments prior to arrival: none Related Data Home Medications Medication Instructions Recorded Confirmed clotrimazole 1 % topical cream 1 applic topical BID 07/10/22 07/10/22 hydrocortisone 1 % topical cream 1 appl topical BID 07/10/22 07/10/22 clonazepam 0.5 mg tablet 0.5 mg PO DAILY PRN 10/13/22 dulaglutide 0.75 mg/0.5 mL mg subcut 10/13/22 subcutaneous pen injector (Trulicity) Previous Rx's Medication Instructions Recorded insulin glargine 100 unit/mL 20 unit (0.2 mL) subcut BEDTIME 06/22/22 subcutaneous solution (Lantus #10 mL U-100 Insulin) prazosin 5 mg capsule 5 mg PO DAILY #30 caps 06/22/22 prazosin 5 mg capsule 10 mg PO BEDTIME #60 caps 06/22/22 blood sugar diagnostic #10 ea 07/21/22 duloxetine 30 mg capsule,delayed 90 mg PO BEDTIME #90 caps 07/21/22 release gabapentin 600 mg tablet 600 mg PO TID #90 tabs 07/21/22 hydroxyzine HCl 25 mg tablet 25 mg PO Q6H PRN Anxiety #45 tabs 07/21/22 ibuprofen 800 mg tablet 800 mg PO Q8H PRN mod-severe pain 07/21/22 #30 tabs insulin syringe-needle U-100 1 mL #100 ea 07/21/22 29 gauge x 1/2 (Insulin Syringe) lancets 33 gauge #100 ea 07/21/22 mirtazapine 15 mg tablet 15 mg PO BEDTIME #30 tabs 07/21/22 quetiapine 200 mg tablet 200 mg PO BEDTIME #30 tabs 07/21/22 quetiapine 50 mg tablet 50 mg PO BID@0800,1400 #60 tabs 07/21/22 cyclobenzaprine 10 mg tablet 10 mg PO BEDTIME PRN muscle spasm 08/04/22 #7 tabs insulin glargine 100 unit/mL (3 24 unit (0.24 mL) subcut QAM #15 mL 08/04/22 mL) subcutaneous pen (Lantus Solostar U-100 Insulin) miconazole nitrate 2 % topical 1 appl topical BID #30 grams 08/04/22 cream (Antifungal Cream (miconazole)) albuterol sulfate 2.5 mg/3 mL 2.5 mg (3 mL) inhalation Q4H PRN 10/10/22 (0.083 %) solution for nebulization shortness of breath or wheezing #90 mL tiotropium bromide 18 mcg capsule 18 mcg inhalation RDAILY #90 10/10/22 with inhalation device (Spiriva inhalations with HandiHaler) albuterol sulfate 90 mcg/actuation 2 puff inhalation Q4H PRN 10/13/22 aerosol inhaler (Ventolin HFA) bronchospasm #6.7 grams fluticasone fur. 100 mcg-umeclid 1 inh inhalation DAILY 30 days #60 10/13/22 62.5 mcg-vilant 25 mcg ea inhalat.powder (Trelegy Ellipta) doxycycline hyclate 100 mg capsule 100 mg PO BID 5 days #10 caps 02/08/23 guaifenesin 1,200 mg tablet, 1,200 mg PO BID 5 days #10 tabs 02/08/23 extended release 12 hr (Mucinex) Allergies Allergy/AdvReac Type Severity Reaction Status Date / Time No Known Allergies Allergy Verified 10/13/22 14:35 Review of Systems Review of Systems: Yes all other systems are reviewed and are negative [facility] Past Medical History Medical History Anxiety Asthma-COPD overlap syndrome Back pain Bipolar II disorder Chronic bronchitis with wheezing Depression Diabetes GERD (gastroesophageal reflux disease) Gout Hallucination, visual Hyperhidrosis Neuropathy Pneumonitis Post traumatic stress disorder (PTSD) PTSD (post-traumatic stress disorder) Sarcoidosis Surgical History History of bronchoscopy Hx of colonoscopy Family History Family History Father Myocardial infarction Mother No problems noted. Social History Social History Household Members: None Housing: House Housing Other:: rent Do you presently have visiting nurse or other home services: Yes Alcohol intake: current Alcohol intake frequency: holidays/special occasions only Patient Tobacco Use Status: Current everyday Tobacco user Tobacco use type: Cigarette Cigarette Packs Per Day: 0 Cigarettes Per Day: 3 Years Smoked: 45 e-Cigarette/Vaping Use: Never Used Second Hand Smoke Exposure: Yes Substance Use Type: Marijuana Advance Directives: No Advance Directives Information Provided: Yes service: No Sexual orientation: Straight/Heterosexual Physical Exam Vital Signs: Vital Signs: Last Vital Signs Temp 98 F 02/08/23 10:54 Pulse 78 02/08/23 14:28 Resp 18 02/08/23 14:28 BP 145/87 H 02/08/23 14:28 Pulse Ox 97 02/08/23 14:28 O2 Del Method 02/08/23 14:28 BMI result Body Mass Index 29.9 Appearance: Alert. Oriented X3. No acute distress. HEENT: normal inspection CVS: Normal heart rate and rhythm. Pulses normal. Respiratory: Normal respiratory effort with coarse crackles auscultated in the right low base, no wheezes. No respiratory distress. Skin: Skin warm and dry. Normal skin color. Normal skin turgor. No rashes. Extremities: Normal inspection x 4. Neuro: Oriented X 3. No motor deficit. No sensory deficit. Course Course Course Narrative: Patient seen and evaluated. Viral swabs ordered and labs ordered. EKG and chest x-ray ordered. Vital signs stable. Reevaluation(s) Reevaluation #1: Troponin negative. Viral swabs negative. Chest x-ray pending. Time: 12:25 Medical Decision Making Medical Decision Making [facility] Narrative: 62-year-old male, with a past medical history of sarcoidosis followed by Dr. Hay, PTSD, bipolar II disorder, diabetes, glaucoma, asthma, and COPD, who presents today for evaluation of cough, shortness of breath and burning chest pain x 5 days. He had increased sputum production with change in his baseline color. He is not wheezy on examination. EKG and chest x-ray unremarkable. Troponin is negative. No leukocytosis. Vital signs remained stable. At this time patient is stable for discharge home with short course of oral doxycycline for possible COPD exacerbation given the change in his sputum production. Hold off on steroids given the fact that he is not wheezing. He has that appointment with store receiving specialist today. Will discharge with outpatient follow-up. Stable for DC. Differential Diagnosis Differential Diagnoses: The differential diagnosis associated with the presentation includes Pneumonia, URI, COPD exacerbation, ACS, bronchitis, COVID, flu Lab Data [facility] Lab Attestation statement: I reviewed the patient's lab results. Moderate hyperglycemia without any anion gap or evidence of diabetic ketoacidosis, mild thrombocytopenia and neutropenia, no major metabolic derangement 02/08/23 11:24 02/08/23 11:24 Labs: Lab Results 02/08/23 02/08/23 02/08/23 Range/Units 11:03 11:03 11:24 WBC 4.5 L (4.8-10.8) X10*3/uL RBC 4.57 L (4.60-5.80) X10*6/uL Hgb 14.1 (14.0-18.0) g/dl Hct 40.7 L (42.0-52.0) % MCV 89.1 (80.0-98.0) fL MCH 30.9 (27.0-33.0) pg MCHC 34.6 (31.0-36.0) g/dl RDW 12.6 (11.0-16.0) % Plt Count 119 L D (160-400) X10*3/uL MPV 11.2 (9.4-12.4) fL Immature Gran % (Auto) 0.7 H (0.0-0.4) % Neut % (Auto) 48.0 (45-73) % Lymph % (Auto) 41.8 H (20-40) % [place] % (Auto) 5.5 (2-11) % Eos % (Auto) 3.1 (0-4) % Baso % (Auto) 0.9 (0-2) % Lymph # (Auto) 1.9 (1.2-4.9) X10*3/uL [place] # (Auto) 0.3 (0.1-1.2) X10*3/uL Eos # (Auto) 0.1 (0.0-0.4) X10*3/uL Baso # (Auto) 0.0 (0.0-0.2) X10*3/uL Abs Immat Gran (auto) 0.03 (0.00-0.03) X10*3/uL Absolute Neuts (auto) 2.2 (2.0-8.3) x10*3/uL Absolute Nucleated RBC 0.000 (0.0-0.012) X10*3/uL Nucleated RBC % (auto) 0.0 (0.0-0.2) /100WBC Sodium (135-145) mmol/L Potassium (3.3-5.1) mmol/L Chloride (96-108) mmol/L Carbon Dioxide (22-29) mmol/L Anion Gap (12-20) BUN (9-16) mg/dL Creatinine (0.5-1.4) mg/dL Estim Creat Clear Calc Estimated GFR Random Glucose (60-115) mg/dL Calcium (8.4-10.2) mg/dL Magnesium (1.6-2.6) mg/dL Total Bilirubin (0.0-1.0) mg/dL Direct Bilirubin (0.0-0.5) mg/dL AST (5-37) U/L ALT (0-40) U/L Alkaline Phosphatase (39-117) U/L Troponin I High Sens (<3.5-35.0) ng/L Total Protein (6.5-8.0) g/dL Albumin (3.5-5.0) g/dL COVID-19 (PRECIOUS) Negative (Negative) COVID-19 Clin Com See Note Influenza Type A (NIELS) Negative (Negative) Influenza Type B (NIELS) Negative (Negative) Influenza A & B Note See Note 02/08/23 02/08/23 Range/Units 11:24 11:24 WBC (4.8-10.8) X10*3/uL RBC (4.60-5.80) X10*6/uL Hgb (14.0-18.0) g/dl Hct (42.0-52.0) % MCV (80.0-98.0) fL MCH (27.0-33.0) pg MCHC (31.0-36.0) g/dl RDW (11.0-16.0) % Plt Count (160-400) X10*3/uL MPV (9.4-12.4) fL Immature Gran % (Auto) (0.0-0.4) % Neut % (Auto) (45-73) % Lymph % (Auto) (20-40) % [place] % (Auto) (2-11) % Eos % (Auto) (0-4) % Baso % (Auto) (0-2) % Lymph # (Auto) (1.2-4.9) X10*3/uL [place] # (Auto) (0.1-1.2) X10*3/uL Eos # (Auto) (0.0-0.4) X10*3/uL Baso # (Auto) (0.0-0.2) X10*3/uL Abs Immat Gran (auto) (0.00-0.03) X10*3/uL Absolute Neuts (auto) (2.0-8.3) x10*3/uL Absolute Nucleated RBC (0.0-0.012) X10*3/uL Nucleated RBC % (auto) (0.0-0.2) /100WBC Sodium 138 (135-145) mmol/L Potassium 4.4 (3.3-5.1) mmol/L Chloride 103 (96-108) mmol/L Carbon Dioxide 24 (22-29) mmol/L Anion Gap 15 (12-20) BUN 11 (9-16) mg/dL Creatinine 0.98 (0.5-1.4) mg/dL Estim Creat Clear Calc 96.9 Estimated GFR > 60 Random Glucose 249 H (60-115) mg/dL Calcium 9.3 (8.4-10.2) mg/dL Magnesium 1.7 (1.6-2.6) mg/dL Total Bilirubin 0.8 (0.0-1.0) mg/dL Direct Bilirubin 0.2 (0.0-0.5) mg/dL AST 24 (5-37) U/L ALT 34 (0-40) U/L Alkaline Phosphatase 114 (39-117) U/L Troponin I High Sens < 3.5 (<3.5-35.0) ng/L Total Protein 7.1 (6.5-8.0) g/dL Albumin 4.3 (3.5-5.0) g/dL COVID-19 (PRECIOUS) (Negative) COVID-19 Clin Com Influenza Type A (NIELS) (Negative) Influenza Type B (NIELS) (Negative) Influenza A & B Note Independent Interpretation I performed an independent interpretation of an: EKG and Plain X-Ray Interpretation: Normal sinus rhythm with a ventricular rate of 81bpm, pr interval 194ms, and QTC 453. 1mm ST elevation noted in I, II, V2, V4-V6; consistent with early replorization. Unchanged from previous EKG from 07/11/2022. Chest x-ray reviewed by me, no infiltrate. Radiology Impression Discussion of test interpretation with radiology: I have reviewed the radiologist's reading. Radiologist Impression: XR/XR chest 2V IMPRESSION: No acute disease. External Record Review External record reviewed: Prior outpatient labs Prescription Management I considered prescription management with: Antibiotic Chronic Conditions Patient?s care impacted by: Other (COPD, sarcoidosis) Discharge Plan Discharge Clinical Impression: Acute viral syndrome Patient Disposition: Home, Self-Care Additional Instructions: Your chest x-ray showed no pneumonia. You likely have a viral infection. Take antibiotic as directed. Take mucinex as directed. Drink plenty of fluids and get plenty of rest. Follow-up with your store receiving specialist. If you develop new or worsening symptoms call 911 or come back to the ER for f urther evaluation. Prescriptions: New doxycycline hyclate 100 mg capsule 100 mg PO BID 5 Days Qty: 10 0RF Mucinex 1,200 mg tablet extended release 12hr 1,200 mg PO BID 5 Days Qty: 10 0RF No Action albuterol sulfate 2.5 mg /3 mL (0.083 %) solution for nebulization 2.5 mg inhalation Q4H PRN (Reason: shortness of breath or wheezing) Qty: 90 2RF Spiriva with HandiHaler 18 mcg capsule, w/inhalation device 18 mcg inhalation RDAILY Qty: 90 1RF hydrocortisone 1 % cream 1 appl topical BID clotrimazole 1 % cream 1 applic topical BID duloxetine 30 mg Capsule,Delayed Release(Dr/Ec) 90 mg PO BEDTIME Qty: 90 0RF gabapentin 600 mg Tablet 600 mg PO TID Qty: 90 0RF ibuprofen 800 mg Tablet 800 mg PO Q8H PRN (Reason: mod-severe pain) Qty: 30 0RF quetiapine 200 mg Tablet 200 mg PO BEDTIME Qty: 30 0RF hydroxyzine HCl 25 mg Tablet 25 mg PO Q6H PRN (Reason: Anxiety) Qty: 45 0RF mirtazapine 15 mg Tablet 15 mg PO BEDTIME Qty: 30 0RF quetiapine 50 mg Tablet 50 mg PO BID@0800,1400 Qty: 60 0RF (DME) blood sugar diagnostic Strip See Rx Instructions Not Applicable BID Qty: 10 0RF Rx Instructions: As directed (DME) insulin syringe-needle U-100 [Insulin Syringe] 1 mL 29 gauge x 1/2 syringe See Rx Instructions .Route Qty: 100 0RF Rx Instructions: As directed (DME) lancets 33 gauge misc See Rx Instructions Not Applicable BID Qty: 100 0RF Rx Instructions: As directed prazosin 5 mg Capsule 10 mg PO BEDTIME Qty: 60 2RF Protocol: Hold for SBP< HOLD for SBP < : 90 prazosin 5 mg Capsule 5 mg PO DAILY Qty: 30 2RF Protocol: Hold for SBP< HOLD for SBP < : 90 insulin glargine [Lantus U-100 Insulin] 100 unit/mL Solution 20 unit subcut BEDTIME Qty: 10 2RF cyclobenzaprine 10 mg tablet 10 mg PO BEDTIME PRN (Reason: muscle spasm) Qty: 7 0RF miconazole nitrate [Antifungal Cream (miconazole)] 2 % cream 1 appl topical BID Qty: 30 0RF insulin glargine [Lantus Solostar U-100 Insulin] 100 unit/mL (3 mL) insulin pen 24 unit subcut QAM Qty: 15 0RF Trulicity 0.75 mg/0.5 mL pen injector subcut clonazepam 0.5 mg tablet 0.5 mg PO DAILY PRN Trelegy Ellipta 100-62.5-25 mcg blister with device 1 inh inhalation DAILY 30 Days Qty: 60 11RF albuterol sulfate [Ventolin HFA] 90 mcg/actuation HFA aerosol inhaler 2 puff inhalation Q4H PRN (Reason: bronchospasm) Qty: 6.7 11RF
[2023-02-08 12:23] LABS: Troponin-I High Sensitivity < 3.5 ng/L (<3.5-35.0)
[2023-02-08 14:28] VITALS: BP 145/87; PULSE 78; RESP 18; O2SAT 97
== END 2023-02-08 14:34 | disposition home or self-care (01) ==
PROVIDERS: Physician Assistant; Emergency Provider Emergency Medicine
DX: B34.9 Viral infection, unspecified (principal); R05.9 Cough, unspecified; Z20.822 Contact with and (suspected) exposure to COVID-19; E11.9 Type 2 diabetes mellitus without complications; F17.210 Nicotine dependence, cigarettes, uncomplicated; Z79.4 Long term (current) use of insulin
CPT/HCPCS: 36415; 71046; 80048; 80076; 83735; 84484; 85025; 87502; 87635; 93005; 99283

== ENCOUNTER → 2023-04-13 12:51 | Outpatient (BNVA) | payer OTHER, SELFPAY | PROVIDERS: Visit Provider Hospitalist | DX: J44.9 Chronic obstructive pulmonary disease, unspecified (principal); J18.9 Pneumonia, unspecified organism; J18.0 Bronchopneumonia, unspecified organism; D86.9 Sarcoidosis, unspecified | CPT/HCPCS: 99212 ==

== ENCOUNTER → 2023-04-27 13:05 | Outpatient (BNVA) | payer OTHER, SELFPAY | PROVIDERS: Visit Provider Nurse Practitioner Family | DX: J44.9 Chronic obstructive pulmonary disease, unspecified (principal) | CPT/HCPCS: 99212 ==

== ENCOUNTER 2023-08-31 12:48 | Outpatient (AMB) | payer OTHER, SELFPAY ==
[2023-08-31 13:38] VITALS: PULSE 77; O2SAT 98; BMI 27.1
--- NOTE | 2023-08-31 13:38 | MHC.OFFVIS ---
Intake Vital Signs 08/31/23 13:38 Height 6 ft Weight 199 lb 15.348 oz BMI 27.1 Pulse 77 Pulse Source Pulse Oximeter Pulse Oximetry (%) 98 Oxygen Delivery Method Room Air Intake Visit Reasons: Dyspnea Therapeutic Recreation Assistant Required: No Allergies No Known Allergies Allergy (Verified 08/31/23 13:39) HPI HPI Comments History of Present Illness Details The patient is a 62-year-old gentleman with a known history sarcoidosis biopsy-proven approximately years ago with a mediastinoscopy. Patient is also active smoker. He has been developing worsening respiratory symptoms in the last few months. Severity. Did go to the ER he had a CT scan of the chest done which was personally reviewed by me demonstrating patchy areas opacities. No significant lymphadenopathy and no evidence of any pulmonary emboli. He was given short-acting beta agonist that he has been using several times a day with partial resolution his symptoms. The office he was found to be significantly wheezy and rhonchorous. He did receive 2 treatments with DuoNeb which significantly helped. The patient does have a history mood disorders and the use of systemic steroids usually to destabilize for that reason try avoid any systemic steroids at this time. The patient also undergo blood work in addition to function studies. I did reassure the patient that the on CT scan warrant likely related to reactivation his sarcoidosis. However, that was related to pneumonitis his cigarette smoking or any hypersensitivity reaction. 05/09/2022 the patient is here for a pulmonary follow-up visit. Overall the patient seems to be doing overall better. Although the last week or 2 he has had worsening respiratory symptoms and cough. He did respond well to the Trelegy inhaler but then he ran out and has not been using any. He still has his rescue inhaler. He did feel better while being on the maintenance therapy. Patient also continues to smoke cigarettes. He has been trying to cut down. The patient appears to be motivated he continued cutting now. We did review his last CT scan of the chest that was done back in April 2021 demonstrating resolution of some nodular densities. Although he had other areas of ground-glass opacities suggesting pneumonitis. Will plan to repeat the CT scan in a couple months. 10/13/2022 the patient is here for pulmonary follow-up visit. overall the patient is feeling better from a respiratory status. Still complains of some shortness of breath with activity mild in severity. also, has intermittent cough typically did productive of clear sputum. Likely related to his smoking. The Trelegy inhaler has been helpful. He also has a rescue inhaler that he uses as needed although he has not required it. He still dealing with smoking. He is trying to cut down. We did encourage him to do so. I also did review his recent CT scan of chest with him. It appears that some of the areas of pneumonitis have improved in his airway disease also has improved. Overall it is reassuring CT scan. Next year will be a good candidate for the lung cancer screening program. 04/13/2023 the patient is here for pulmonary follow-up visit. The patient is feeling unwell. The patient states that he did have issues with anxiety and his PT is he has been acting up any went to the ER [facility]. There she was noted to have having chest congestion and cough and had an x-ray done. I do not have those results. The patient since then has been having worsening symptoms with significant chest congestion and shortness of breath. Moderate severity. He has been using his inhalers although he has lost track and has not been using his Trelegy. Only his rescue inhaler. I again the reeducated him about his inhalers. The patient on exam does have some rhonchi and crackles on the right lung. Indeed he may have bronchopneumonia. Therefore will go ahead and treat him with couple antibiotics to treat for community-acquired pneumonia and also continue with respiratory therapy. If the patient is no better he is to call the office for an earlier assessment. In the meantime will see about getting him scheduled soon in the coming weeks for follow-up visit with an x-ray. 08/31/2023 the patient is here for a pulmonary follow-up visit. The patient overall has been doing well. Stopped using the Trelegy. The patient understands the needs to continue on daily basis. Otherwise medications not going to be effective for him. He does have increased cough and some shortness of breath with activity. Has been using his rescue inhaler at least daily. He understands that once he restarts the Trelegy he will not need it as often. Unfortunately continues smoking cigarettes. He is trying to cut down although is very hard for him to quit altogether. He had a chest x-ray back in March 2023 demonstrating no acute disease therefore resolving the lower respiratory infection. He is scheduled to continue with the lung cancer screening program. Although, not adherent to the program at this time. [facility] Medical History (Updated 09/03/23 @ 21:07 by Dick Hay MD) Tobacco dependence Bronchopneumonia Post traumatic stress disorder (PTSD) Bipolar II disorder Hallucination, visual Chronic bronchitis with wheezing Asthma-COPD overlap syndrome Pneumonitis Hyperhidrosis Back pain Diabetes Neuropathy Anxiety PTSD (post-traumatic stress disorder) Depression Gout Sarcoidosis GERD (gastroesophageal reflux disease) Surgical History History of bronchoscopy Hx of colonoscopy Family History Father Myocardial infarction Mother No problems noted. Social History Household Members: None Housing: House Housing Other:: rent Do you presently have visiting nurse or other home services: Yes Alcohol intake: current Alcohol intake frequency: holidays/special occasions only Patient Tobacco Use Status: Current everyday Tobacco user Tobacco use type: Cigarette Cigarette Packs Per Day: 0 Cigarettes Per Day: 3 Years Smoked: 45 e-Cigarette/Vaping Use: Never Used Second Hand Smoke Exposure: Yes Substance Use Type: Marijuana service: No Sexual orientation: Straight/Heterosexual Review of Systems Const Denies chills, Denies fatigue and Denies fever(s) Eyes Denies change in vision ENT Reports Normal hearing present Card Denies chest pain, Denies chest pain at rest, Denies chest pain with activity, Denies pedal edema and Reports dyspnea on exertion Resp Reports change in phlegm color, Reports chest congestion, Reports cough, Reports dyspnea on exertion and Reports wheezing GI Denies abdominal pain Musc Denies abnormal gait, Denies muscle cramps and Denies radiating pain into limb Skin/Breast Denies skin ulcer and Denies wounds Neuro Reports Normal hearing present and Denies abnormal gait Psych Reports no additional complaints Endo Denies fatigue Aller/Immun Reports wheezing Physical Exam Vital Signs: Last Vital Signs Pulse 77 08/31/23 13:38 Pulse Ox 98 08/31/23 13:38 Oxygen Delivery Method Room Air 08/31/23 13:38 BMI result Body Mass Index 27.1 Const General: alert Neck Neck: Yes normal visual inspection, Yes full ROM and Yes no lymphadenopathy Chest Chest palpation & inspection: normal inspection of the chest Resp Auscultation: no rhonchi, no wheezes and diminished lung sounds Cardio Rate: regular rate Rhythm: regular rhythm Heart sounds: S1 normal heart sound present and S2 normal heart sound present GI Palpation (GI): Soft to palpation and nontender Auscultation: normal bowel sounds Skin General skin exam: rashes and/or lesions noted Neuro Cranial nerves: Yes Normal hearing present Assessment & Plan Assessment & Plan (1) Pneumonitis: Comment: resolved Code(s): J18.9 - Pneumonia, unspecified organism (2) Sarcoidosis: Comment: Remission Code(s): D86.9 - Sarcoidosis, unspecified (3) Asthma-COPD overlap syndrome: Code(s): J44.9 - Chronic obstructive pulmonary disease, unspecified Plan Trelegy inhaler short-acting beta needed continue nebulizer As needed tobacco cessation. LDCT referral follow-up in 6-8 months Orders: Referrals Thoracic Surgery Referral F17.200 - Nicotine dependence, unspecified, uncomplicated Quality Reporting (2019) Adult ([facility] 138/01/17/69) Smoking risk assessment performed?: Yes Patient Tobacco Use Status: Current everyday Tobacco user Coding Level of Care Code Est Pt Level 4 (96216) Diagnoses Pneumonitis J18.9 Sarcoidosis D86.9 Asthma-COPD overlap syndrome J44.9 Time Spent (min) 16
== END 2023-08-31 13:59 | disposition home or self-care (01) ==
PROVIDERS: Visit Provider Hospitalist
DX: J18.9 Pneumonia, unspecified organism (principal); D86.9 Sarcoidosis, unspecified; J44.9 Chronic obstructive pulmonary disease, unspecified
CPT/HCPCS: 99214

== ENCOUNTER → 2023-08-31 12:48 | Outpatient (BNVA) | payer OTHER, SELFPAY | PROVIDERS: Visit Provider Hospitalist | DX: J44.9 Chronic obstructive pulmonary disease, unspecified (principal); J18.9 Pneumonia, unspecified organism; D86.9 Sarcoidosis, unspecified | CPT/HCPCS: 99212 ==

== ENCOUNTER 2023-10-03 14:38 | Outpatient (REF) | payer OTHER, SELFPAY ==
[2023-10-03 16:52] LABS: Prostate Specific Antigen 0.42 ng/mL (<0.05-4.0)
[2023-10-04 06:00] LABS: CT PCR NOT DETECTED (Not Detect.); NG PCR NOT DETECTED (Not Detect.)
== END 2023-10-03 14:39 | disposition home or self-care (01) ==
LOC: HO.HHCL 14:38
PROVIDERS: Visit Provider Family Medicine
DX: N50.89 Other specified disorders of the male genital organs (principal); N47.1 Phimosis; Z20.2 Contact with and (suspected) exposure to infections with a predominantly sexual mode of transmission; Z12.5 Encounter for screening for malignant neoplasm of prostate
CPT/HCPCS: 0353U; 36415; 84153

== ENCOUNTER 2023-10-09 14:43 | Outpatient (AMB) | payer OTHER, SELFPAY ==
--- NOTE | 2023-10-09 15:28 | MHC.OFFVIS ---
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 Accompanied by: Self / Same As Patient Allergies No Known Allergies Allergy (Verified 10/09/23 17:46) Medication List - Last Reconciled 10/09/23 by BURT WilkinsonP- albuterol sulfate 90 mcg/actuation (Ventolin HFA) 2 puffs inhalation Q4H PRN albuterol sulfate 2.5 mg (3 mL) inhalation Q4H PRN blood sugar diagnostic As directed clonazepam 0.5 mg PO DAILY PRN clotrimazole 1% 1 applic topical BID clotrimazole-betamethasone 1-0.05 % 1 appl topical BID 4 weeks CPAP (CPAP Machine/Device) As directed cyclobenzaprine 10 mg PO BEDTIME PRN dulaglutide (Trulicity) mg subcut duloxetine 90 mg (3 x 30 mg) PO BEDTIME tymnqtxnfml-btxdxlljr-wocagdtk 100-62.5-25 mcg (Trelegy Ellipta) 1 inh inhalation DAILY 30 days gabapentin 600 mg PO TID hydrocortisone 1% 1 appl topical BID hydroxyzine HCl 25 mg PO Q6H PRN ibuprofen 800 mg PO Q8H PRN insulin glargine (Lantus Solostar U-100 Insulin) 24 units (0.24 mL) subcut QAM insulin glargine (Lantus U-100 Insulin) 20 units (0.2 mL) subcut BEDTIME insulin syringe-needle U-100 (Insulin Syringe) As directed lancets As directed mirtazapine 15 mg PO BEDTIME nebulizers As directed prazosin 10 mg See Protocol PO BEDTIME prazosin 5 mg See Protocol PO DAILY quetiapine 200 mg PO BEDTIME quetiapine 50 mg PO BID@0800,1400 tiotropium bromide (Spiriva with HandiHaler) 18 mcg inhalation RDAILY HPI HPI Comments History of Present Illness Details Dick is a very pleasant 62-year-old male patient. He has a past medical history of tobacco dependence, posttraumatic stress disorder, bipolar, visual hallucinations, asthma, COPD, hyperhidrosis, back pain, diabetes, neuropathy, anxiety, depression, GERD, gout, and in remission of sarcoidosis. He presents to the office today as a new patient for phimosis. In discussion with the patient today reports to be doing and feeling well. He reports noting over the last 1-2 months to be having issues with the foreskin of his penis. In assessment of the patient today penis is uncircumcised upon retraction of foreskin penile gland appears reddened with one dime sized areas of blotchiness otherwise no drainage, lesions, and or open areas noted. Discussed possible balanitis in the setting of type 2 diabetes and SGLT-2 inhibitors. When asked he denies any bothersome urinary issues or concerns. He denies urinary urgency, urinary frequency, incontinence, nocturia, hematuria, dysuria, foul smelling urine, changes to urinary stream, flank pain, fever, and or chills. He is happy with his current voiding parameters. He does however report erectile dysfunction. Discussed at length last A1c 07/17 noted to be 9.6. Discussed at length importance of managing diabetes for improvement in ED, balanitis, and overall health and well-being. Discussed lifestyle modifications to assist with erectile dysfunction such as healthy eating habits, adequate sleep, and daily activity. In office urinalysis results reviewed with the patient today. He otherwise offers no other issues or concerns at this time. [facility] Medical History Tobacco dependence Bronchopneumonia Post traumatic stress disorder (PTSD) Bipolar II disorder Hallucination, visual Chronic bronchitis with wheezing Asthma-COPD overlap syndrome Pneumonitis Hyperhidrosis Back pain Diabetes Neuropathy Anxiety PTSD (post-traumatic stress disorder) Depression Gout Sarcoidosis GERD (gastroesophageal reflux disease) Surgical History History of bronchoscopy Hx of colonoscopy Family History Father Myocardial infarction Mother No problems noted. Social History Household Members: None Housing: House Housing Other:: rent Do you presently have visiting nurse or other home services: Yes Alcohol intake: current Alcohol intake frequency: holidays/special occasions only Patient Tobacco Use Status: Current everyday Tobacco user Tobacco use type: Cigarette Cigarette Packs Per Day: 0 Cigarettes Per Day: 3 Years Smoked: 45 e-Cigarette/Vaping Use: Never Used Second Hand Smoke Exposure: Yes Substance Use Type: Marijuana service: No Sexual orientation: Straight/Heterosexual Review of Systems Const Reports as per [facility] Eyes Reports no additional complaints ENT Reports no additional complaints Card Reports as per [facility] Resp Reports as per [facility] GI Reports as per HPI Reports as per HPI Musc Reports no additional complaints Neuro Reports as per [facility] Psych Reports as per HPI Endo Reports as per HPI Physical Exam Const General: cooperative, healthy appearing, comfortable, no acute distress, well developed, alert and awake Orientation/consciousness: patient oriented x3 Limitations: no limitations HEENT Head: Yes normal to inspection, Yes normocephalic and Yes atraumatic Ears: hearing grossly normal bilaterally Eyes General: appearance normal, both eyes and all related structures Neck Neck: Yes normal visual inspection and Yes trachea midline Chest Chest palpation & inspection: normal inspection of the chest Resp Effort & Inspection: normal respiratory effort and able to speak in complete sentences Cardio Rate: regular rate GI Inspection: Yes normal to inspection General: Yes no CVA tenderness Male General Exam: Yes normal external exam Penis: normal penis, uncircumcised and erythematous Meatus: meatus normal Scrotum: scrotum normal Testes: Testes normal Back/Spine/Pelvis Back: no CVA tenderness Skin General skin exam: no rashes or lesions noted Neuro General: patient oriented x3 Extrem General: Yes normal to inspection Psych Appearance: grossly normal and well kempt Mental Status: mental status grossly normal Speech and movement: Normal speech and movement present and Clear speech present Affect: normal affect Attitude: cooperative Thought process: Normal thought process present Thought content: Normal thought content present Insight: Fair insight present (Psych) Judgement: Fair judgement present (Psych) Results AMB Urinalysis, Automated UA Leukoctes 0 Shannon/uL Last Edit by Seedfuse on 10/09/23 15:33 UA Nitrite Negative Last Edit by Seedfuse on 10/09/23 15:33 UA Urobilinogen 0.2 mg/dL Last Edit by Seedfuse on 10/09/23 15:33 UA Protein 0 mg/dL Last Edit by Seedfuse on 10/09/23 15:33 UA pH 5.0 Last Edit by Seedfuse on 10/09/23 15:33 UA Blood 0 Alejandro/uL Last Edit by Seedfuse on 10/09/23 15:33 UA Specific [place] 1.015 Last Edit by Mary Munoz on 10/09/23 15:33 UA Ketone Negative Last Edit by Mary Munoz on 10/09/23 15:33 UA Bilirubin 0 mg/dL Last Edit by Mary Munoz on 10/09/23 15:33 UA Glucose 1000 mg/dL Last Edit by Mary Munoz on 10/09/23 15:33 Results Reviewed Results Reviewed: Laboratory Last Values Urine pH (Auto) 5.0 10/09/23 15:31 Specific [place] (Auto) 1.015 10/09/23 15:31 Urine Protein (Auto) 0 mg/dL 10/09/23 15:31 Glucose (UA)(Auto) 1000 mg/dL 10/09/23 15:31 Urine Ketones (Auto) Negative 10/09/23 15:31 Urine Blood (Auto) 0 Alejandro/uL 10/09/23 15:31 Urine Nitrite (Auto) Negative 10/09/23 15:31 Urine Bilirubin (Auto) 0 mg/dL 10/09/23 15:31 Urine Urobilinogen (Auto) 0.2 mg/dL 10/09/23 15:31 Leukocyte Esterase (Auto) 0 Shannon/uL 10/09/23 15:31 Assessment & Plan Assessment & Plan (1) Balanitis: Code(s): N48.1 - Balanitis (2) Erectile dysfunction associated with type 2 diabetes mellitus: Code(s): E11.69 - Type 2 diabetes mellitus with other specified complication; N52.1 - Erectile dysfunction due to diseases classified elsewhere Plan In office urinalysis results reviewed with the patient today; as noted above. Discussed at length importance of managing diabetes for improvement in ED, balanitis, and overall health and well-being. Patient reports to be happy with current voiding parameters. Discussed at length lifestyle modifications for ED Startclotrimazole-betamethasone as discussed and prescribed. Will obtain hemoglobin A1c in 3 months for further assessment evaluation for question of circumcision Follow-up in 3 months with lab to be completed prior; or sooner with any issues, concerns, and or questions. Orders: Orders AMB Urinalysis Automated Today Z13.9 - Encounter for screening, unspecified Hemoglobin A1c Today E11.9 - Type 2 diabetes mellitus without complications Medications: New clotrimazole-betamethasone 1-0.05 % Apply thin coat 2 times per day 1 appl topical BID 4 weeks 45 grams 0RF N48.1 - Balanitis Discontinued miconazole nitrate 2% (Antifungal (miconazole)) Discontinued Reason: Doctor's Order 1 appl topical BID 30 grams 0RF Patient Instructions: The patient had an opportunity to ask questions regarding the treatment plan. All questions were answered. Physical exam, labs, and imaging were discussed and reviewed in detail. As well as risks, benefits, and discussion of treatment choices. No major barriers to understanding were identified. The patient expressed understanding and agreement with the above treatment plan. The patient was made aware they should contact our office by phone for worsening of their current condition, the appearance of new symptoms, or with any questions or concerns. Compliance is encouraged with any medications and follow up testing that is ordered. It is a privilege to be allowed the opportunity to participate in? your urological care.? Again, if you have any questions or concerns If you have any questions or concerns please do not hesitate to contact me. The office is [phone]. This note is constructed using voice recognition software. While every effort has been made to ensure accuracy grape pruner errors may have been included. Yours sincerely, JACQUELINE Wilkinson- Quality Reporting (2019) Adult ([facility] ) Smoking risk assessment performed?: Yes Patient Tobacco Use Status: Current everyday Tobacco user Coding Level of Care Code New Pt Level 4 (36215) Diagnoses Balanitis N48.1 Erectile dysfunction associated with type 2 diabetes mellitus E11.69; N52.1
== END 2023-10-09 15:57 | disposition home or self-care (01) ==
PROVIDERS: Visit Provider Nurse Practitioner Family
DX: N48.1 Balanitis (principal); E11.69 Type 2 diabetes mellitus with other specified complication; N52.1 Erectile dysfunction due to diseases classified elsewhere; Z13.9 Encounter for screening, unspecified
CPT/HCPCS: 99204

== ENCOUNTER → 2023-10-09 14:43 | Outpatient (BNVA) | payer OTHER, SELFPAY | PROVIDERS: Visit Provider Nurse Practitioner Family | DX: N48.1 Balanitis (principal); E11.69 Type 2 diabetes mellitus with other specified complication; N52.1 Erectile dysfunction due to diseases classified elsewhere | CPT/HCPCS: 81003; 99202 ==

== ENCOUNTER 2023-10-25 08:46 | Outpatient (REF) | payer OTHER, SELFPAY ==
[2023-10-25 10:01] LABS: Estimated Average Glucose 203 mg/dL; Hemoglobin A1c % 8.7 % (<6.0)
== END 2023-10-25 08:47 | disposition home or self-care (01) ==
LOC: HO.LAB 08:46
PROVIDERS: Visit Provider Nurse Practitioner Family
DX: E11.9 Type 2 diabetes mellitus without complications (principal)
CPT/HCPCS: 36415; 83036

== ENCOUNTER → 2023-11-16 08:50 | Outpatient (BNVA) | payer OTHER, SELFPAY | PROVIDERS: Visit Provider Nurse Practitioner Family | DX: F17.210 Nicotine dependence, cigarettes, uncomplicated (principal) | CPT/HCPCS: G0296 ==

== ENCOUNTER 2024-01-09 12:43 | Outpatient (AMB) | payer OTHER, SELFPAY ==
--- NOTE | 2024-01-09 12:58 | A.OFFVIS_ITS ---
Intake Intake Visit Reasons: 3m A1C/PSA Intake Note: Patient presents for follow up visit for Balanitis, Erectile Dysfunction, and lab results HGB A1C: 8.7 Urology Medications: Clotrimazole Cream Blood Thinner: none Patient stated he has a constant testicular pain, he does not feel so well. 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 Accompanied by: Self / Same As Patient Allergies No Known Allergies Allergy (Verified 01/09/24 23:07) Medication List - Last Reconciled 01/09/24 by JACQUELINE Wilkinson-GISELA albuterol sulfate 90 mcg/actuation (Ventolin HFA) 2 puffs inhalation Q4H PRN albuterol sulfate 2.5 mg (3 mL) inhalation Q4H PRN blood sugar diagnostic As directed clonazepam 0.5 mg PO DAILY PRN CPAP (CPAP Machine/Device) As directed cyclobenzaprine 10 mg PO BEDTIME PRN dulaglutide (Trulicity) mg subcut duloxetine 90 mg (3 x 30 mg) PO BEDTIME yukpgayoyjl-lxmabxydp-lrintqth 100-62.5-25 mcg (Trelegy Ellipta) 1 inh inhalation DAILY 30 days gabapentin 600 mg PO TID insulin glargine (Lantus Solostar U-100 Insulin) 24 units (0.24 mL) subcut QAM insulin glargine (Lantus U-100 Insulin) 20 units (0.2 mL) subcut BEDTIME insulin syringe-needle U-100 (Insulin Syringe) As directed lancets As directed meloxicam 15 mg PO DAILY 30 days prazosin 10 mg See Protocol PO BEDTIME prazosin 5 mg See Protocol PO DAILY quetiapine 200 mg PO BEDTIME quetiapine 50 mg PO BID@0800,1400 tiotropium bromide (Spiriva with HandiHaler) 18 mcg inhalation RDAILY HPI HPI Comments History of Present Illness Details Dick is a very pleasant 63-year-old male patient. He has a past medical history of tobacco dependence, posttraumatic stress disorder, bipolar, visual hallucinations, asthma, COPD, hyperhidrosis, back pain, diabetes, neuropathy, anxiety, depression, GERD, gout, and in remission of sarcoidosis. He presents to the office today for follow-up. Of note, patient was seen approximately 3 months ago as a new patient for balanits at which time he was prescribed clotrimazole-betamethasone. In discussion with the patient today reports significant improvement in balanitis with compliance with cream as prescribed during last office visit. In assessment of the patient today the penis is uncircumcised upon retraction of penile foreskin the gland appears normal no areas of redness, blotchiness, and or drainage noted. Discussed possible balanitis in the setting of type 2 diabetes and SGLT-2 inhibitors. Recent A1c results reviewed with the patient today 10/18--8.6. Discussed at length correlation of diabetes regarding balanitis as well as uncontrolled diabetes for over all health. When asked he denies any bothersome urinary issues. He denies urinary urgency, urinary frequency, incontinence, nocturia, hematuria, dysuria, foul smelling urine, changes to urinary stream, flank pain, fever, and or chills. He is happy with his current voiding parameters. He does however report to be experiencing bilateral scrotal/testicular discomfort. He reports pain has been present for over 20 years however feels pain varies on a daily basis. He denies any exacerbating factors. He reports pain is ongoing however at times it is a dull ache other times he feels it is sharp and throbbing. In assessment of the scrotum no pain elicited on exam. No masses, lesions, and or lumps palpated throughout the scrotum or testicles. Discussed obtaining scrotal ultrasound for further assessment evaluation. Reassurance provided. In office urinalysis results reviewed with the patient today. He otherwise offers no other issues or concerns at this time. [facility] Medical History Tobacco dependence Bronchopneumonia Post traumatic stress disorder (PTSD) Bipolar II disorder Hallucination, visual Chronic bronchitis with wheezing Asthma-COPD overlap syndrome Pneumonitis Hyperhidrosis Back pain Diabetes Neuropathy Anxiety PTSD (post-traumatic stress disorder) Depression Gout Sarcoidosis GERD (gastroesophageal reflux disease) Surgical History History of bronchoscopy Hx of colonoscopy Family History Father Myocardial infarction Mother No problems noted. Social History Household Members: None Housing: House Housing Other:: rent Do you presently have visiting nurse or other home services: Yes Alcohol intake: current Alcohol intake frequency: holidays/special occasions only Patient Tobacco Use Status: Current everyday Tobacco user Tobacco use type: Cigarette Cigarette Packs Per Day: 1 Cigarettes Per Day: 20 Years Smoked: 52, prior 2 ppd smoker since age of 10 e-Cigarette/Vaping Use: Never Used Second Hand Smoke Exposure: Yes Substance Use Type: Marijuana service: No Sexual orientation: Straight/Heterosexual Review of Systems Const Reports as per HPI Eyes Reports no additional complaints ENT Reports no additional complaints Card Reports as per HPI Resp Reports as per HPI GI Reports as per HPI Reports as per HPI Musc Reports no additional complaints Neuro Reports as per HPI Psych Reports as per HPI Endo Reports as per HPI Physical Exam Const General: cooperative, healthy appearing, comfortable, no acute distress, well developed, alert and awake Orientation/consciousness: patient oriented x3 Limitations: no limitations HEENT Head: Yes normal to inspection, Yes normocephalic and Yes atraumatic Ears: hearing grossly normal bilaterally Eyes General: appearance normal, both eyes and all related structures Neck Neck: Yes normal visual inspection and Yes trachea midline Chest Chest palpation & inspection: normal inspection of the chest Resp Effort & Inspection: normal respiratory effort and able to speak in complete sentences Cardio Rate: regular rate GI Inspection: Yes normal to inspection General: Yes no CVA tenderness Male General Exam: Yes normal external exam Penis: normal penis and uncircumcised Meatus: meatus normal Scrotum: scrotum normal Testes: Testes normal Back/Spine/Pelvis Back: no CVA tenderness Skin General skin exam: no rashes or lesions noted Neuro General: patient oriented x3 Extrem General: Yes normal to inspection Psych Appearance: grossly normal and well kempt Mental Status: mental status grossly normal Speech and movement: Normal speech and movement present and Clear speech present Affect: normal affect Attitude: cooperative Thought process: Normal thought process present Thought content: Normal thought content present Insight: Fair insight present (Psych) Judgement: Fair judgement present (Psych) Results AMB Urinalysis, Automated UA Leukoctes 0 Shannon/uL Last Edit by Meaghan Lopez CMA on 01/09/24 13 :19 UA Nitrite Negative Last Edit by Meaghan Lopez CMA on 01/09/24 13: 19 UA Urobilinogen 0.2 mg/dL Last Edit [facility], [facility] on 4 13:19 UA Protein 0 mg/dL Last Edit [facility], [facility] on 01/09/24 13:19 UA pH 5.5 Last Edit by [facility], [facility] on 01/09/24 13:19 UA Blood 0 Alejandro/uL Last Edit by [facility], [facility] on 01/09/24 13:19 UA Specific [place] 1.025 Last Edit by [facility], [facility] on 13:19 UA Ketone Negative Last Edit by [facility], [facility] on 01/09/24 13:1 9 UA Bilirubin 0 mg/dL Last Edit by [facility], [facility] on 01/09/24 13: 19 UA Glucose 0 mg/dL Last Edit by [facility], [facility] on 01/09/24 13:19 Results Reviewed Results Reviewed: Laboratory Last Values Urine pH (Auto) 5.5 01/09/24 13:17 Specific [place] (Auto) 1.025 01/09/24 13:17 Urine Protein (Auto) 0 mg/dL 01/09/24 13:17 Glucose (UA)(Auto) 0 mg/dL 01/09/24 13:17 Urine Ketones (Auto) Negative 01/09/24 13:17 Urine Blood (Auto) 0 Alejandro/uL 01/09/24 13:17 Urine Nitrite (Auto) Negative 01/09/24 13:17 Urine Bilirubin (Auto) 0 mg/dL 01/09/24 13:17 Urine Urobilinogen (Auto) 0.2 mg/dL 01/09/24 13:17 Leukocyte Esterase (Auto) 0 Shannon/uL 01/09/24 13:17 Assessment & Plan Assessment & Plan (1) Scrotal pain: Code(s): N50.82 - Scrotal pain (2) Erectile dysfunction associated with type 2 diabetes mellitus: Code(s): E11.69 - Type 2 diabetes mellitus with other specified complication; N52.1 - Erectile dysfunction due to diseases classified elsewhere (3) Balanitis: Code(s): N48.1 - Balanitis Plan In office urinalysis results reviewed with the patient today; as noted above. Significant improvement in balanitis Discussed at length potential causes of scrotal pain patient is experiencing Will obtain scrotal ultrasound for further assessment evaluation. Reassurance provided. Start meloxicam as discussed and prescribed. Discussed at length importance of managing diabetes in relation to balanitis He otherwise denies any bothersome urinary issues or concerns. He reports be happy with current voiding parameters. Recent A1c results reviewed with the patient today; as noted above; discussed at length importance of managing diabetes for overall health and well-being. Follow-up in 1-2 months with imaging to be completed prior; or sooner with any issues, concerns, and or questions. Orders: Orders AMB Urinalysis Automated Today R33.9 - Retention of urine, unspecified US scrotum Today N50.82 - Scrotal pain Medications: New meloxicam 15 mg PO DAILY 30 days 30 tabs 0RF R10.31 - Right lower quadrant pain, R10.32 - Left lower quadrant pain Discontinued ibuprofen Discontinued Reason: Patient no longer taking 800 mg PO Q8H PRN 30 tabs 0RF mod-severe pain clotrimazole-betamethasone 1-0.05 % Apply thin coat 2 times per day Discontinued Reason: Patient Completed Course 1 appl topical BID 4 weeks 45 grams 0RF N48.1 - Balanitis Patient Instructions: The patient had an opportunity to ask questions regarding the treatment plan. All questions were answered. Physical exam, labs, and imaging were discussed and reviewed in detail. As well as risks, benefits, and discussion of treatment choices. No major barriers to understanding were identified. The patient expressed understanding and agreement with the above treatment plan. The patient was made aware they should contact our office by phone for worsening of their current condition, the appearance of new symptoms, or with any questions or concerns. Compliance is encouraged with any medications and follow up testing that is ordered. It is a privilege to be allowed the opportunity to participate in? your urological care.? Again, if you have any questions or concerns If you have any questions or concerns please do not hesitate to contact me. The office is [phone]. This note is constructed using voice recognition software. While every effort has been made to ensure accuracy parimutuel cashier errors may have been included. Yours sincerely, JACQUELINE Wilkinson- Quality Reporting (2019) Adult ([facility] 138/01/17/69) Smoking risk assessment performed?: Yes Patient Tobacco Use Status: Current everyday Tobacco user Coding Level of Care Code Est Pt Level 4 (77882) Diagnoses Scrotal pain N50.82 Erectile dysfunction associated with type 2 diabetes mellitus E11.69; N52.1 Balanitis N48.1
== END 2024-01-09 13:23 | disposition home or self-care (01) ==
PROVIDERS: Visit Provider Nurse Practitioner Family
DX: N50.82 Scrotal pain (principal); E11.69 Type 2 diabetes mellitus with other specified complication; N52.1 Erectile dysfunction due to diseases classified elsewhere; N48.1 Balanitis
CPT/HCPCS: 99214

== ENCOUNTER → 2024-01-09 12:43 | Outpatient (BNVA) | payer OTHER, SELFPAY | PROVIDERS: Visit Provider Nurse Practitioner Family | DX: N50.82 Scrotal pain (principal); E11.69 Type 2 diabetes mellitus with other specified complication; N52.1 Erectile dysfunction due to diseases classified elsewhere; N48.1 Balanitis | CPT/HCPCS: 81003; 99212 ==

== ENCOUNTER 2024-01-15 12:23 | Outpatient (REF) | payer OTHER, SELFPAY ==
[2024-01-15 13:45] LABS: Alanine Aminotransferase 28 U/L (0-40); Albumin Level 4.6 g/dL (3.5-5.0); Alkaline Phosphatase 116 U/L (39-117); Anion Gap 13 (12-20); Aspartate Amino Transferase 19 U/L (5-37); Bilirubin Direct 0.3 mg/dL (0.0-0.5); Bilirubin Total 0.7 mg/dL (0.0-1.0); Blood Urea Nitrogen 14 mg/dL (9-16); Calcium 9.5 mg/dL (8.4-10.2); Carbon Dioxide 26 mmol/L (22-29); Chloride 106 mmol/L (96-108); Cholesterol 332 mg/dL (<200); Estimated Glomerular Filt Rate > 60; Glucose Random 158 mg/dL (60-115); HDL Cholesterol 49 mg/dL (>40); LDL Cholesterol Calculated 241 mg/dL (<100); Potassium 4.7 mmol/L (3.3-5.1); Sodium 140 mmol/L (135-145); Total Protein 8.1 g/dL (6.5-8.0); Triglycerides 212 mg/dL (<150)
== END 2024-01-15 12:24 | disposition home or self-care (01) ==
LOC: HO.HHCL 12:23
PROVIDERS: Visit Provider Nurse Practitioner Primary Care
DX: E11.69 Type 2 diabetes mellitus with other specified complication (principal); Z79.4 Long term (current) use of insulin
CPT/HCPCS: 36415; 80048; 80061; 80076

== ENCOUNTER 2024-03-07 13:13 | Outpatient (AMB) | payer OTHER, SELFPAY ==
[2024-03-07 13:23] VITALS: BP 100/58; PULSE 78; O2SAT 98; BMI 29.3
--- NOTE | 2024-03-07 13:23 | A.OFFVIS_ITS ---
Intake Vital Signs 03/07/24 13:23 Height 6 ft Weight 216 lb BMI 29.3 BP 100/58 L Blood Pressure Location Lt brachial Position Sitting Pulse 78 Pulse Source Pulse Oximeter Pulse Oximetry (%) 98 Oxygen Delivery Method Room Air Intake Visit Reasons: dyspnea: spring f/u Medical Insurance Claims Specialist Required: No Allergies No Known Allergies Allergy (Verified 03/07/24 13:26) HPI HPI Comments History of Present Illness Details The patient is a 63-year-old gentleman with a known history sarcoidosis biopsy-proven approximately years ago with a mediastinoscopy. Patient is also active smoker. He has been developing worsening respiratory symptoms in the last few months. Severity. Did go to the ER he had a CT scan of the chest done which was personally reviewed by me demonstrating patchy areas opacities. No significant lymphadenopathy and no evidence of any pulmonary emboli. He was given short-acting beta agonist that he has been using several times a day with partial resolution his symptoms. The office he was found to be significantly wheezy and rhonchorous. He did receive 2 treatments with DuoNeb which significantly helped. The patient does have a history mood disorders and the use of systemic steroids usually to destabilize for that reason try avoid any systemic steroids at this time. The patient also undergo blood work in addition to function studies. I did reassure the patient that the on CT scan warrant likely related to reactivation his sarcoidosis. However, that was related to pneumonitis his cigarette smoking or any hypersensitivity reaction. 05/09/2022 the patient is here for a pulm onary follow-up visit. Overall the patient seems to be doing overall better. Although the last week or 2 he has had worsening respiratory symptoms and cough. He did respond well to the Trelegy inhaler but then he ran out and has not been using any. He still has his rescue inhaler. He did feel better while being on the maintenance therapy. Patient also continues to smoke cigarettes. He has been trying to cut down. The patient appears to be motivated he continued cutting now. We did review his last CT scan of the chest that was done back in April 2021 demonstrating resolution of some nodular densities. Although he had other areas of ground- glass opacities suggesting pneumonitis. Will plan to repeat the CT scan in a couple months. 10/13/2022 the patient is here for pulmonary follow-up visit. overall the patient is feeling better from a respiratory status. Still complains of some shortness of breath with activity mild in severity. also, has intermittent cough typically did productive of clear sputum. Likely related to his smoking. The Trelegy inhaler has been helpful. He also has a rescue inhaler that he uses as needed although he has not required it. He still dealing with smoking. He is trying to cut down. We did encourage him to do so. I also did review his recent CT scan of chest with him. It appears that some of the areas of pneumonitis have improved in his airway disease also has improved. Overall it is reassuring CT scan. Next year will be a good candidate for the lung cancer screening program. 04/13/2023 the patient is here for pulmon hossein follow-up visit. The patient is feeling unwell. The patient states that he did have issues with anxiety and his PT is he has been acting up any went to the [facility]. There she was noted to have having chest congestion and cough and had an x-ray done. I do not have those results. The patient since then has been having worsening symptoms with significant chest congestion and shortness of breath. Moderate severity. He has been using his inhalers although he has lost track and has not been using his Trelegy. Only his rescue inhaler. I again the reeducated him about his inhalers. The patient on exam does have some rhonchi and crackles on the right lung. Indeed he may have bronchopneumonia. Therefore will go ahead and treat him with couple antibiotics to treat for community-acquired pneumonia and also continue with respiratory therapy. If the patient is no better he is to call the office for an earlier assessment. In the meantime will see about getting him scheduled soon in the coming weeks for follow-up visit with an x-ray. 08/31/2023 the patient is here for a pulmonary follow-up visit. The patient overall has been doing well. Stopped using the Trelegy. The patient un derstands the needs to continue on daily basis. Otherwise medications not going to be effective for him. He does have increased cough and some shortness of breath with activity. Has been using his rescue inhaler at least daily. He understands that once he restarts the Trelegy he will not need it as often. Unfortunately continues smoking cigarettes. He is trying to cut down although is very hard for him to quit altogether. He had a chest x-ray back in March 2023 demonstrating no acute disease therefore resolving the lower respiratory infection. He is scheduled to continue with the lung cancer screening program. Although, not adherent to the program at this time. 03/07/2024 the patient is here for a pulmonary follow-up visit. Since we last spoke he became homeless and he had to go to a half-way. He was having issues with alcohol abuse and also continues to smoke cigarettes. He did finally go to a rehabilitation program where he was accepted and currently participating. He is subsequently quit smoking and has been working on his alcohol sobriety. Overall the patient has been doing well. He has been using his respiratory therapy as prescribed. The patient has not had any recent imaging studies. In view of his smoking history he has a great candidate for the lung cancer screening program. His broken most of his life just recently quit about a week ago. He has a greater than 30 pack-year history of smoking. [facility] Medical History Tobacco dependence Bronchopneumonia Post traumatic stress disorder (PTSD) Bipolar II disorder Hallucination, visual Chronic bronchitis with wheezing Asthma-COPD overlap syndrome Pneumonitis Hyperhidrosis Back pain Diabetes Neuropathy Anxiety PTSD (post-traumatic stress disorder) Depression Gout Sarcoidosis GERD (gastroesophageal reflux disease) Surgical History History of bronchoscopy Hx of colonoscopy Family History Father Myocardial infarction Mother No problems noted. Social History (Updated 03/07/24 @ 13:28 by Jeanne Kong [facility]) Household Members: None Housing: House Housing Other:: rent Do you presently have visiting nurse or other home services: Yes Alcohol intake: current Alcohol intake frequency: holidays/special occasions only Patient Tobacco Use Status: Current everyday Tobacco user Tobacco use type: Cigarette Cigarette Packs Per Day: 1 Cigarettes Per Day: 20 Years Smoked: 53, prior 2 ppd smoker since age of 10 e-Cigarette/Vaping Use: Never Used Second Hand Smoke Exposure: Yes Substance Use Type: Marijuana service: No Sexual orientation: Straight/Heterosexual Review of Systems Const Denies chills, Denies fatigue and Denies fever(s) Eyes Denies change in vision ENT Reports Normal hearing present Card Denies chest pain, Denies chest pain at rest, Denies chest pain with activity, Denies pedal edema and Reports dyspnea on exertion Resp Reports cough, Reports dyspnea on exertion and Reports wheezing GI Denies abdominal pain Musc Denies abnormal gait, Denies muscle cramps and Denies radiating pain into limb Skin/Breast Denies skin ulcer and Denies wounds Neuro Reports Normal hearing present and Denies abnormal gait Psych Reports no additional complaints Endo Denies fatigue Aller/Immun Reports wheezing Physical Exam Vital Signs: Last Vital Signs Pulse 78 03/07/24 13:23 BP 100/58 L 03/07/24 13:23 Pulse Ox 98 03/07/24 13:23 Oxygen Delivery Method Room Air 03/07/24 13:23 BMI result Body Mass Index 29.3 Const General: alert Neck Neck: Yes normal visual inspection, Yes full ROM and Yes no lymphadenopathy Chest Chest palpation & inspection: normal inspection of the chest Resp Auscultation: no rhonchi, no wheezes and diminished lung sounds Cardio Rate: regular rate Rhythm: regular rhythm Heart sounds: S1 normal heart sound present and S2 normal heart sound present GI Palpation (GI): Soft to palpation and nontender Auscultation: normal bowel sounds Skin General skin exam: rashes and/or lesions noted Neuro Cranial nerves: Yes Normal hearing present Assessment & Plan Assessment & Plan (1) Pneumonitis: Comment: resolved Code(s): J18.9 - Pneumonia, unspecified organism (2) Sarcoidosis: Comment: Remission Code(s): D86.9 - Sarcoidosis, unspecified (3) Asthma-COPD overlap syndrome: Code(s): J44.9 - Chronic obstructive pulmonary disease, unspecified (4) Tobacco dependence: Code(s): F17.200 - Nicotine dependence, unspecified, uncomplicated Plan Trelegy inhaler start Doxycycline x 8-10 days short-acting beta needed continue nebulizer As needed tobacco cessation, quit cold turkey LDCT referral follow-up in 6-8 months Orders: Referrals Thoracic Surgery Referral F17.200 - Nicotine dependence, unspecified, uncomplicated Medications: New doxycycline monohydrate 100 mg PO BID 28 tabs 0RF 14 days Quality Reporting (2019) Adult ([facility] 138/01/17/69) Smoking risk assessment performed?: Yes Patient Tobacco Use Status: Current everyday Tobacco user Coding Level of Care Code Est Pt Level 4 (67792) Diagnoses Pneumonitis J18.9 Sarcoidosis D86.9 Asthma-COPD overlap syndrome J44.9 Tobacco dependence F17.200 Time Spent (min) 17
== END 2024-03-07 13:43 | disposition home or self-care (01) ==
PROVIDERS: Visit Provider Hospitalist
DX: J18.9 Pneumonia, unspecified organism (principal); D86.9 Sarcoidosis, unspecified; J44.9 Chronic obstructive pulmonary disease, unspecified; F17.200 Nicotine dependence, unspecified, uncomplicated
CPT/HCPCS: 99214

== ENCOUNTER → 2024-03-07 13:13 | Outpatient (BNVA) | payer OTHER, SELFPAY | PROVIDERS: Visit Provider Hospitalist | DX: J18.9 Pneumonia, unspecified organism (principal); J44.9 Chronic obstructive pulmonary disease, unspecified; D86.9 Sarcoidosis, unspecified; F17.210 Nicotine dependence, cigarettes, uncomplicated | CPT/HCPCS: 99212 ==

== ENCOUNTER 2024-03-24 13:40 | Outpatient (REF) | payer OTHER, SELFPAY ==
--- NOTE | ~2024-03-24 | US_ITS ---
EXAMINATION: US SCROTUM CLINICAL INFORMATION: Scrotal pain. COMPARISON: None available. TECHNIQUE: A sonogram of the scrotum was performed assessing monroe-scale appearance and color Doppler flow. Spectral Doppler analysis of the arterial and venous flow were performed in the testes bilaterally. FINDINGS: RIGHT: Right testicle measures 3.5 x 1.7 x 2.3 cm, volume 17.3 mL. No focal testicular parenchymal lesions are visualized. Spectral Doppler analysis of the arterial and venous flow is normal in the right testis. Right epididymal head is normal in size. A testicular appendix is seen. No right hydrocele or varicocele is seen. Right epididymal Doppler flow is normal. LEFT: Left testicle measures 3.8 x 2.0 x 2.4 cm, volume 9.5 mL. No focal testicular parenchymal lesions are visualized. Spectral Doppler analysis of the arterial and venous flow is normal in the left testis. Left epididymal head is normal in size. Multiple cysts are noted in the head of the epididymis, the largest 5 mm in size. There is a small complex left-sided hydrocele with septation and low-level internal echoes. No varicocele is seen. Left epididymal Doppler flow is normal. US/US scrotum IMPRESSION: 1. Normal-appearing testes. 2. Small complex left-sided hydrocele. 3. Left epididymal cysts.
== END 2024-03-24 13:41 | disposition home or self-care (01) ==
LOC: HO.US 13:40
PROVIDERS: Visit Provider Nurse Practitioner Family
DX: N50.82 Scrotal pain (principal)
CPT/HCPCS: 76870

== ENCOUNTER 2024-04-17 15:25 | Outpatient (REF) | payer OTHER, SELFPAY ==
--- NOTE | ~2024-04-17 | CT_ITS ---
EXAMINATION: CT LOW-DOSE SCREENING CHEST WITHOUT CONTRAST CLINICAL INFORMATION: Nicotine dependence, cigarettes, uncomplicated. The patient is a current smoker with a 30 pack-year history of smoking. COMPARISON: Chest x-ray 02/08/[address] chest 05/23/2020. TECHNIQUE: Multidetector volumetric CT imaging of the chest is performed on a Siemens SOMATOM Definition scanner without contrast using low dose technique. Additional 2D coronal and sagittal reformatted images and axial 3D maximum intensity projection (MIP) images are generated on the CT workstation. This CT examination was performed using dose optimization techniques as appropriate, variously including the following: *Automated exposure control *Adjustment of mA and/or kV according to patient size (this includes techniques or standardized protocols for targeted exams where dose is matched to indication/reason for exam; i.e. extremities or head) *Use of iterative reconstruction technique TOTAL EXAM DLP: 61 mGy-cm. CTDIvol: 1.75 mGy. FINDINGS: PULMONARY NODULES: Again seen is a small group of clustered micronodules in the right upper lobe posteriorly unchanged or possibly slightly improved when compared to the prior (5:133 compare prior 7:177). An additional area of probable clustered micronodules seen just above this level laterally and is unchanged (5:129 compare prior 7:173). Unchanged 4 mm micronodule right upper lobe (5:236 compare prior 7:297). A few other tiny micronodules are unchanged including a 3 mm right lower lobe nodule (5:294 compare prior 7:383). Chirinos images of all have been saved. LUNGS: Lungs bilaterally symmetrically expanded. Inspissated mucus is present in the trachea and extends down into the left mainstem bronchus and to a lesser extent on the right. There is mild diffuse emphysematous changes and moderate diffuse bronchial thickening. No effusion or pneumothorax. Central airways patent. MEDIASTINUM: No mediastinal, hilar or axillary adenopathy or free fluid collection. CORONARY ARTERY CALCIFICATION: Moderate. THYROID GLAND: The left lobe of the thyroid is mildly enlarged with a 1.5 cm nodule better seen on the current study. CARDIOVASCULAR STRUCTURES: Aortic and heart size normal. No pericardial effusion. CHEST WALL/AXILLA: Unremarkable. UPPER ABDOMEN: Included portions of the solid organs in the upper abdomen unremarkable on noncontrast imaging. OSSEOUS STRUCTURES: No suspicious focal findings. CT/CT lung screening IMPRESSION: 1. Pulmonary nodules are unchanged. 2. Incidental note made of emphysema, bronchial thickening and inspissated mucus in the trachea and mainstem bronchi. 3. A 1.5 cm left thyroid nodule. 4. Incidental findings (S category): Left thyroid nodule. ASSESSMENT: 1. Lung-RADS Category 2: Benign appearance or behavior of nodules. RECOMMENDATION: Continued routine annual low-dose CT lung screening in 1 year is recommended. An order for CT CHEST LOW DOSE CANCER SCREENING ([id number]) can be placed. Consider thyroid ultrasound.
== END 2024-04-17 15:26 | disposition home or self-care (01) ==
LOC: HO.CT 15:25
PROVIDERS: Visit Provider Nurse Practitioner Family
DX: Z12.2 Encounter for screening for malignant neoplasm of respiratory organs (principal); F17.210 Nicotine dependence, cigarettes, uncomplicated
CPT/HCPCS: 71271

== ENCOUNTER 2024-05-19 12:24 | Outpatient (AMB) | payer OTHER, SELFPAY ==
--- NOTE | 2024-05-19 13:07 | MHC.OFFVIS ---
Intake Visit Reasons: follow up/US/balanitis/scrotal pain (set) Intake Note: Patient presents for follow up visit on: Balanitis and Scrotal Pain Imagin03/24/24 Urology Medications: prev treated with doxycycline, meloxicam Blood Thinner: none Visual Communications Instructor Required: No Accompanied by: Self / Same As Patient Allergies No Known Allergies Allergy (Verified 05/19/24 13:30) Medication List - Last Reconciled 05/19/24 by ABDIRAHMAN Wilkinson albuterol sulfate 90 mcg/actuation (Ventolin HFA) 2 puffs inhalation Q4H PRN albuterol sulfate 2.5 mg (3 mL) inhalation Q4H PRN blood sugar diagnostic As directed clonazepam 0.5 mg PO DAILY PRN CPAP (CPAP Machine/Device) As directed cyclobenzaprine 10 mg PO BEDTIME PRN dulaglutide (Trulicity) mg subcut dulaglutide (Trulicity) mg subcut duloxetine 90 mg (3 x 30 mg) PO BEDTIME ayeinjkvkbt-goxdcietx-rbqbdxff 100-62.5-25 mcg (Trelegy Ellipta) 1 inh inhalation DAILY 30 days gabapentin 600 mg PO TID insulin glargine (Lantus Solostar U-100 Insulin) 24 units (0.24 mL) subcut QAM insulin glargine (Lantus U-100 Insulin) 20 units (0.2 mL) subcut BEDTIME insulin syringe-needle U-100 (Insulin Syringe) As directed lancets As directed meloxicam 15 mg PO DAILY 30 days prazosin 10 mg See Protocol PO BEDTIME prazosin 5 mg See Protocol PO DAILY quetiapine 200 mg PO BEDTIME quetiapine 50 mg PO BID@0800,1400 HPI Comments Details: Dick is a very pleasant 63-year-old male patient. He has a past medical history of tobacco dependence, posttraumatic stress disorder, bipolar, visual hallucinations, asthma, COPD, hyperhidrosis, back pain, diabetes, neuropathy, anxiety, depression, GERD, gout, and in remission of sarcoidosis. He presents to the office today for follow-up. Of note, patient was seen approximately 4 months ago at which time a scrotal ultrasound was ordered for further assessment evaluation. These results were reviewed with the patient today. Normal appearing testes, small complex left-sided hydrocele. Left epididymal cyst. Despite Mobic and 1 month treatment for potential epididymitis with doxycycline he has had no improvement in intermittent ongoing scrotal discomfort he has been experiencing. However, it appears balanitis has since improved with clotrimazole-betamethasone. He discusses attempting to better manage his diabetes and trying to lose weight. He reports increase in weight of approximately 25 lb over the last 1-2 years. She reports noting at times with urination he feels this makes his scrotal pain worse. However he denies urinary urgency, urinary frequency, incontinence, nocturia, hematuria, dysuria, foul smelling urine, changes to urinary stream, flank pain, fever, and or chills. He is happy with his current voiding parameters. He reports pain has been present for over 20 years however feels pain varies on a daily basis. He denies any exacerbating factors. He reports pain is ongoing however at times it is a dull ache other times he feels it is sharp and throbbing. In assessment of the scrotum no pain elicited on exam. Reassurance provided. In office urinalysis results reviewed with the patient today. He otherwise offers no other issues or concerns at this time. PSA 10/18 0.4. PFSH Medical History Tobacco dependence Bronchopneumonia Post traumatic stress disorder (PTSD) Bipolar II disorder Hallucination, visual Chronic bronchitis with wheezing Asthma-COPD overlap syndrome Pneumonitis Hyperhidrosis Back pain Diabetes Neuropathy Anxiety PTSD (post-traumatic stress disorder) Depression Gout Sarcoidosis GERD (gastroesophageal reflux disease) Surgical History History of bronchoscopy Hx of colonoscopy Family History Father Myocardial infarction Mother No problems noted. Social History Household Members: None Housing: House Housing Other:: rent Do you presently have visiting nurse or other home services: Yes Alcohol intake: current Alcohol intake frequency: holidays/special occasions only Patient Tobacco Use Status: Current everyday Tobacco user Tobacco use type: Cigarette Cigarette Packs Per Day: 1 Cigarettes Per Day: 20 Years Smoked: 52, prior 2 ppd smoker since age of 10 e-Cigarette/Vaping Use: Never Used Second Hand Smoke Exposure: Yes Substance Use Type: Marijuana service: No Sexual orientation: Straight/Heterosexual Review of Systems Const Reports as per [facility] Eyes Reports no additional complaints ENT Reports no additional complaints Card Reports as per [facility] Resp Reports as per HPI GI Reports as per HPI Reports as per HPI Musc Reports no additional complaints Neuro Reports as per [facility] Psych Reports as per [facility] Endo Reports as per HPI Physical Exam Const General: cooperative, healthy appearing, comfortable, no acute distress, well developed, alert and awake Nutritional Appearance: overweight Orientation/consciousness: patient oriented x3 Limitations: no limitations HEENT Head: Yes normal to inspection, Yes normocephalic and Yes atraumatic Ears: hearing grossly normal bilaterally Eyes General: appearance normal, both eyes and all related structures Neck Neck: Yes normal visual inspection and Yes trachea midline Chest Chest palpation & inspection: normal inspection of the chest Resp Effort & Inspection: normal respiratory effort and able to speak in complete sentences Cardio Rate: regular rate GI Inspection: Yes normal to inspection General: Yes no CVA tenderness Male General Exam: Yes normal external exam Penis: normal penis and uncircumcised Meatus: meatus normal Scrotum: scrotum normal Testes: Testes normal Back/Spine/Pelvis Back: no CVA tenderness Skin General skin exam: no rashes or lesions noted Neuro General: patient oriented x3 Extrem General: Yes normal to inspection Psych Appearance: grossly normal and well kempt Mental Status: mental status grossly normal Speech and movement: Normal speech and movement present and Clear speech present Affect: normal affect Attitude: cooperative Thought process: Normal thought process present Thought content: Normal thought content present Insight: Fair insight present (Psych) Judgement: Fair judgement present (Psych) Results AMB Urinalysis, Automated UA Leukoctes 0 Shannon/uL Last Edit by [employer] on 05/19/24 13:30 UA Nitrite Negative Last Edit by [employer] on 05/19/24 13:30 UA Urobilinogen 0.2 mg/dL Last Edit by [employer] on 05/19/24 13:30 UA Protein 0 mg/dL Last Edit by [employer] on 05/19/24 13:30 UA pH 5.5 Last Edit by [employer] on 05/19/24 13:30 UA Blood 0 Alejandro/uL Last Edit by [employer] on 05/19/24 13:30 UA Specific Laotto 1.010 Last Edit by Mary Munoz on 05/19/24 13:30 UA Ketone Negative Last Edit by Mary Munoz on 05/19/24 13:30 UA Bilirubin 0 mg/dL Last Edit by Mary Munoz on 05/19/24 13:30 UA Glucose 1000 mg/dL Last Edit by Mary Munoz on 05/19/24 13:30 Quality Reporting (2019) Adult ([facility] 138/01/17/69) Smoking risk assessment performed?: Yes Patient Tobacco Use Status: Current everyday Tobacco user Results Reviewed Results Reviewed: Laboratory Last Values Urine pH (Auto) 5.5 05/19/24 13:29 Specific [place] (Auto) 1.010 05/19/24 13:29 Urine Protein (Auto) 0 mg/dL 05/19/24 13:29 Glucose (UA)(Auto) 1000 mg/dL 05/19/24 13:29 Urine Ketones (Auto) Negative 05/19/24 13:29 Urine Blood (Auto) 0 Alejandro/uL 05/19/24 13:29 Urine Nitrite (Auto) Negative 05/19/24 13:29 Urine Bilirubin (Auto) 0 mg/dL 05/19/24 13:29 Urine Urobilinogen (Auto) 0.2 mg/dL 05/19/24 13:29 Leukocyte Esterase (Auto) 0 Shannon/uL 05/19/24 13:29 Date of Service: 03/24/24 EXAMINATION: US SCROTUM FINDINGS: RIGHT: Right testicle measures 3.5 x 1.7 x 2.3 cm, volume 17.3 mL. No focal testicular parenchymal lesions are visualized. Spectral Doppler analysis of the arterial and venous flow is normal in the right testis. Right epididymal head is normal in size. A testicular appendix is seen. No right hydrocele or varicocele is seen. Right epididymal Doppler flow is normal. LEFT: Left testicle measures 3.8 x 2.0 x 2.4 cm, volume 9.5 mL. No focal testicular parenchymal lesions are visualized. Spectral Doppler analysis of the arterial and venous flow is normal in the left testis. Left epididymal head is normal in size. Multiple cysts are noted in the head of the epididymis, the largest 5 mm in size. There is a small complex left-sided hydrocele with septation and low-level internal echoes. No varicocele is seen. Left epididymal Doppler flow is normal. IMPRESSION: 1. Normal-appearing testes. 2. Small complex left-sided hydrocele. 3. Left epididymal cysts. Assessment & Plan Assessment & Plan (1) Scrotal pain: Code(s): N50.82 - Scrotal pain Category: Medical (2) Erectile dysfunction associated with type 2 diabetes mellitus: Code(s): E11.69 - Type 2 diabetes mellitus with other specified complication; N52.1 - Erectile dysfunction due to diseases classified elsewhere Category: Medical (3) Balanitis: Code(s): N48.1 - Balanitis Category: Medical Plan In office urinalysis results reviewed with the patient today; as noted above. Recent scrotal ultrasound results reviewed with the patient today; as noted above. Reassurance provided. Patient currently denies any bothersome urinary issues. He reports be happy with current voiding parameters. Discussed at length potential causes for scrotal pain patient is experiencing. Patient with a history of erectile dysfunction however is not currently sexually active in does not wish to undergo further workup or therapy at this time. Follow-up with Dr. Salguero as discussed; or sooner with any issues, concerns, and or questions. Orders: Orders AMB Urinalysis Automated Today Z13.9 - Encounter for screening, unspecified Patient Instructions: The patient had an opportunity to ask questions regarding the treatment plan. All questions were answered. Physical exam, labs, and imaging were discussed and reviewed in detail. As well as risks, benefits, and discussion of treatment choices. No major barriers to understanding were identified. The patient expressed understanding and agreement with the above treatment plan. The patient was made aware they should contact our office by phone for worsening of their current condition, the appearance of new symptoms, or with any questions or concerns. Compliance is encouraged with any medications and follow up testing that is ordered. It is a privilege to be allowed the opportunity to participate in? your urological care.? Again, if you have any questions or concerns If you have any questions or concerns please do not hesitate to contact me. The office is [phone]. This note is constructed using voice recognition software. While every effort has been made to ensure accuracy parole officer errors may have been included. Yours sincerely, ABDIRAHMAN Wilkinson Coding Level of Care Code Est Pt Level 3 (58857) Diagnoses Scrotal pain N50.82 Erectile dysfunction associated with type 2 diabetes mellitus E11.69; N52.1 Balanitis N48.1
== END 2024-05-19 13:28 | disposition home or self-care (01) ==
PROVIDERS: Visit Provider Nurse Practitioner Family
DX: N50.82 Scrotal pain (principal); E11.69 Type 2 diabetes mellitus with other specified complication; N52.1 Erectile dysfunction due to diseases classified elsewhere; N48.1 Balanitis; Z13.9 Encounter for screening, unspecified
CPT/HCPCS: 99213

== ENCOUNTER → 2024-05-19 12:24 | Outpatient (BNVA) | payer OTHER, SELFPAY | PROVIDERS: Visit Provider Nurse Practitioner Family | DX: N50.82 Scrotal pain (principal); E11.69 Type 2 diabetes mellitus with other specified complication; N52.1 Erectile dysfunction due to diseases classified elsewhere; N48.1 Balanitis | CPT/HCPCS: 81003; 99212 ==

== ENCOUNTER 2024-05-28 13:01 | Outpatient (REF) | payer OTHER, SELFPAY ==
--- NOTE | 2024-05-28 13:04 | EMG_ITS ---
Chief complaint: Feet numbness, right leg pain worse than left, not associated with back pain, poorly controlled diabetic Reason for referral: Evaluate for neuropathy Referred by: Dr. Emanuel Willis Procedure done: Bilateral lower extremity NCS/EMG Precautions and/or limitations: None The limb temperature was monitored continuously and remained between 32-36 degrees C during the performance of the NCS. Nerve Conduction Studies Anti Sensory Summary Table ?Stim Site NR Onset (ms) Norm Onset (ms) Peak (ms) Norm Peak (ms) O-P Amp (?V) Norm O-P Amp Site1 Site2 Delta-0 (ms) Dist (cm) Mat (m/s) Norm Mat (m/s) Left Sural Anti Sensory (Lat Mall) Calf NR <4.0 >5.0 Calf Lat Mall 14.0 Right Sural Anti Sensory (Lat Mall) Calf NR <4.0 >5.0 Calf Lat Mall 14.0 Motor Summary Table ?Stim Site NR Onset (ms) Norm Onset (ms) O-P Amp (mV) Norm O-P Amp iAmp (mV) Amp (1st) (%) Site1 Site2 Delta-0 (ms) Dist (cm) Mat (m/s) Norm Mat (m/s) Right Peroneal Motor (Ext Dig Brev) Ankle ? 3.9 <4.0 6.6 >2.5 7.4 100.0 Ankle Ext Dig Brev 3.9 0.0 B Fib ? 12.1 4.6 5.4 69.7 B Fib Ankle 8.2 35.0 43 >40 Poplt ? 12.7 4.7 5.5 71.2 Poplt B Fib 0.6 4.5 75 >40 Left Tibial Motor (Abd Marie Brev) Ankle ? 3.5 <5 7.7 >2.5 10.8 100.0 Ankle Abd Marie Brev 3.5 0.0 Knee ? 14.1 5.6 6.6 72.7 Knee Ankle 10.6 41.0 39 >40 Right Tibial Motor (Abd Marie Brev) Ankle ? 3.5 <5 4.6 >2.5 5.8 100.0 Ankle Abd Marie Brev 3.5 0.0 Knee ? 13.9 6.2 7.4 134.8 Knee Ankle 10.4 42.0 40 >40 EMG ?Side Muscle Nerve Root Ins Act Fibs Psw Amp Dur Poly Recrt Int Pat Comment Right AbdHallucis MedPlantar S1-2 Nml Nml Nml Nml Nml 0 Nml Complete Right AntTibialis Dp Br Peron L4-5 Nml Nml Nml Nml Nml 0 Nml Complete Right PostTibialis Tibial L5, S1 Nml Nml Nml Nml Nml 0 Nml Complete Right MedGastroc Tibial S1-2 Nml Nml Nml Nml Nml 0 Nml Complete Right VastusMed Femoral L2-4 Nml Nml Nml Nml Nml 0 Nml Complete FINDINGS: Bilateral sural nerves absent response. All other nerves tested were within normal. Concentric needle EMG was performed in selected muscles of the right lower extremity. Study did not reveal signs of electric abnormalities as shown in the table above. IMPRESSION: 1. This is an abnormal study. 2. 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 3. There is no electrodiagnostic evidence for peroneal neuropathy, tibial neuropathy. lumbosacral plexopathy, or lumbar radiculopathy. Thank you for your kind referral. Kiana Fields MD, ALONSO Board Certified, [place] Board [employer] and Rehabilitation (ABPMR) Board Certified, [place] Board of Electrodiagnostic Medicine (ABEM) [place] [id number] [facility]
== END 2024-05-28 13:02 | disposition home or self-care (01) ==
LOC: HO.NEURO 13:01
PROVIDERS: PCP Student in an Organized Health Care Education/Training Program; Visit Provider Student in an Organized Health Care Education/Training Program
DX: G62.9 Polyneuropathy, unspecified (principal); R20.0 Anesthesia of skin
CPT/HCPCS: 95886; 95909

== ENCOUNTER → 2024-05-28 13:04 | Outpatient (BNV) | payer OTHER, SELFPAY | PROVIDERS: PCP Student in an Organized Health Care Education/Training Program; Visit Provider Physical Medicine & Rehabilitation | DX: G62.9 Polyneuropathy, unspecified (principal) | CPT/HCPCS: 95886; 95909 ==

== ENCOUNTER 2024-06-23 08:39 | Outpatient (REF) | payer OTHER, SELFPAY ==
[2024-06-23 11:36] LABS: MANUAL DIFF FLAG NO
[2024-06-23 11:40] LABS: Basophils Absolute Auto 0.1 X10*3/uL (0.0-0.2); Eosinophils Absolute Auto 0.2 X10*3/uL (0.0-0.4); Eosinophils Percent Auto 4.1 % (0-4); Hematocrit 38.8 % (42.0-52.0); Hemoglobin 13.5 g/dl (14.0-18.0); Imm Gran Abs Auto 0.03 X10*3/uL (0.00-0.03); Imm Gran Pct Auto 0.6 % (0.0-0.4); Lymphocytes Absolute Auto 1.9 X10*3/uL (1.2-4.9); Lymphocytes Percent Auto 39.7 % (20-40); Mean Corpuscular HGB Conc 34.8 g/dl (31.0-36.0); Mean Corpuscular Hemoglobin 29.8 pg (27.0-33.0); Mean Corpuscular Volume 85.7 fL (80.0-98.0); Mean Platelet Volume 12.4 fL (9.4-12.4); Monocytes Absolute Auto 0.4 X10*3/uL (0.1-1.2); Monocytes Percent Auto 7.4 % (2-11); Neutrophils Absolute Auto 2.3 x10*3/uL (2.0-8.3); Neutrophils Percent Auto 47.2 % (45-73); Platelet Count 138 X10*3/uL (160-400); Red Blood Count 4.53 X10*6/uL (4.60-5.80); Red Cell Distribution Width 12.7 % (11.0-16.0); White Blood Count 4.8 X10*3/uL (4.8-10.8)
[2024-06-23 11:59] LABS: Alanine Aminotransferase 24 U/L (0-40); Albumin Level 4.2 g/dL (3.5-5.0); Alkaline Phosphatase 114 U/L (39-117); Anion Gap 12 (12-20); Aspartate Amino Transferase 16 U/L (5-37); Bilirubin Total 0.5 mg/dL (0.0-1.0); Blood Urea Nitrogen 14 mg/dL (9-16); Calcium 9.2 mg/dL (8.4-10.2); Carbon Dioxide 24 mmol/L (22-29); Chloride 108 mmol/L (96-108); Estimated Glomerular Filt Rate > 60; Glucose Random 188 mg/dL (60-115); Potassium 4.3 mmol/L (3.3-5.1); Sodium 140 mmol/L (135-145); Uric Acid 6.2 mg/dL (3.4-7.0)
== END 2024-06-23 08:40 | disposition home or self-care (01) ==
LOC: HO.HHCL 08:39
PROVIDERS: Visit Provider Student in an Organized Health Care Education/Training Program
DX: G62.9 Polyneuropathy, unspecified (principal)
CPT/HCPCS: 36415; 80053; 84550; 85025

== ENCOUNTER 2024-06-25 10:33 | Outpatient (AMB) | payer OTHER, SELFPAY ==
--- NOTE | 2024-06-25 11:05 | A.OFFVIS_ITS ---
Intake Visit Reasons: Discuss Scrotal discomfort Intake Note: Patient is Present for Follow Up Scrotal Pain and Discomfort Urology Medication:None Antibiotic Allergies: none Blood Thinners:None Patient is on Trulicity Patient states that he is still having severe testicular pain Patient does take pain medications but does not help with pain Patient has a recent Scrotal US done Allergies No Known Allergies Allergy (Verified 05/19/24 13:30) HPI Comments Details: Dick is a pleasant male. Seen for the following urologic conditions - left hydrocele with epididymal cyst - balanitis On evaluation has minimal pain with evaluation of testicle or paratesticular structures including epididymis and vas deferens. Marked pain at rectus abdominus insertion and pubis symphysis bilaterally This is consistent with inguinal disruption Recommend PT evaluation with pelvic stability exercises Scrotal discomfort Imaging shows small complex left-sided hydrocele with left epididymal cyst Baseline of bipolar disease with COPD hyperhidrosis PFSH Medical History (Reviewed 05/19/24 @ 13:39 by [facility]INE [facility] Tobacco dependence Bronchopneumonia Post traumatic stress disorder (PTSD) Bipolar II disorder Hallucination, visual Chronic bronchitis with wheezing Asthma-COPD overlap syndrome Pneumonitis Hyperhidrosis Back pain Diabetes Neuropathy Anxiety PTSD (post-traumatic stress disorder) Depression Gout Sarcoidosis GERD (gastroesophageal reflux disease) Surgical History History of bronchoscopy Hx of colonoscopy Family History Father Myocardial infarction Mother No problems noted. Social History Household Members: None Housing: House Housing Other:: rent Do you presently have visiting nurse or other home services: Yes Alcohol intake: current Alcohol intake frequency: holidays/special occasions only Patient Tobacco Use Status: Current everyday Tobacco user Tobacco use type: Cigarette Cigarette Packs Per Day: 1 Cigarettes Per Day: 20 Years Smoked: 52, prior 2 ppd smoker since age of 10 e-Cigarette/Vaping Use: Never Used Second Hand Smoke Exposure: Yes Substance Use Type: Marijuana service: No Sexual orientation: Straight/Heterosexual Quality Reporting (2019) Adult ([facility] 138//) Smoking risk assessment performed?: Yes Patient Tobacco Use Status: Current everyday Tobacco user Assessment & Plan Assessment & Plan (1) Inguinal pain of both sides: Code(s): R10.31 - Right lower quadrant pain; R10.32 - Left lower quadrant pain Category: Medical Plan P.r.n. follow-up Referral PT Orders: Orders PT Evaluation and Treatment Today R10.31 - Right lower quadrant pain, R10.32 - Left lower quadrant pain Patient Instructions: Imaging studies, laboratory and physical exam results were discussed and reviewed in detail. No major barriers to patient understanding were identified. An opportunity to ask questions regarding the treatment plan was provided. All questions were answered. The patient expressed understanding and agreement with the above treatment plan. The patient is aware they should contact our office by phone for worsening of their current condition or the appearance of new urologic symptoms. Compliance is encouraged with any medications and followup testing that is ordered. It is a privilege to participate in the urologic care of your patient. If you have any questions or concerns regarding treatment for the above conditions, or other urologic issues, please do not hesitate to contact me. The office telephone contact is [phone]. This note is constructed using voice recognition software. While every effort has been made to ensure accuracy sewing room supervisor errors may have been included. Yours sincerely, Dr William Salguero MD, ALONSO [facility] - Urology Providers of Expert, Compassionate Care for the Genitourinary System Coding Level of Care Code Est Pt Level 4 (00560) Diagnoses Inguinal pain of both sides R10.31; R10.32
== END 2024-06-25 11:29 | disposition home or self-care (01) ==
PROVIDERS: Visit Provider Urology
DX: R10.31 Right lower quadrant pain (principal); R10.32 Left lower quadrant pain
CPT/HCPCS: 99214

== ENCOUNTER → 2024-06-25 10:33 | Outpatient (BNVA) | payer OTHER, SELFPAY | PROVIDERS: Visit Provider Urology | DX: R10.31 Right lower quadrant pain (principal); R10.32 Left lower quadrant pain | CPT/HCPCS: 99212 ==

== ENCOUNTER 2024-07-18 10:57 | Outpatient (REF) | payer OTHER, SELFPAY ==
--- NOTE | ~2024-07-18 | US_ITS ---
EXAMINATION: US TRIPLEX LOWER EXTREMITY, LEFT CLINICAL INFORMATION: Edema. COMPARISON: Bilateral lower extremity ultrasound 12/15/2021. TECHNIQUE: Color-flow triplex imaging with spectral analysis and compression Doppler were performed on the left lower extremity. FINDINGS: Respiratory variation, normal compression and augmented flow are noted throughout the left lower extremity. The visualized common femoral vein, superficial femoral vein, profunda femoral vein, popliteal vein and midcalf peroneal and posterior tibial venous segments show no evidence of deep venous thrombosis. There is no Bustillo's cyst. US/US venous duplex LE LT IMPRESSION: No evidence of deep venous thrombosis involving the left lower extremity. Electronically signed by: Armida Warren MD 07/18/2024 11:26 AM EDT
== END 2024-07-18 10:58 | disposition home or self-care (01) ==
LOC: HO.US 10:57
PROVIDERS: Visit Provider Nurse Practitioner Primary Care
DX: R60.0 Localized edema (principal)
CPT/HCPCS: 93971

== ENCOUNTER 2024-09-15 12:51 | Outpatient (AMB) | payer OTHER, SELFPAY ==
[2024-09-15 13:12] VITALS: BP 118/60; PULSE 87; O2SAT 96; BMI 31.8
--- NOTE | 2024-09-15 13:12 | MHC.OFFVIS ---
Vital Signs 09/15/24 13:12 Height 6 ft Weight 234 lb 12.677 oz BMI 31.8 BP 118/60 Blood Pressure Location Lt brachial Position Sitting Pulse 87 Pulse Source Pulse Oximeter Pulse Oximetry (%) 96 Oxygen Delivery Method Room Air Intake Visit Reasons: Dyspnea Mainframe Systems Administrator Required: No Allergies No Known Allergies Allergy (Verified 09/15/24 13:15) HPI Comments Details: The patient is a 63-year-old gentleman with a known history sarcoidosis biopsy-proven approximately years ago with a mediastinoscopy. Patient is also active smoker. He has been developing worsening respiratory symptoms in the last few months. Severity. Did go to the ER he had a CT scan of the chest done which was personally reviewed by me demonstrating patchy areas opacities. No significant lymphadenopathy and no evidence of any pulmonary emboli. He was given short-acting beta agonist that he has been using several times a day with partial resolution his symptoms. The office he was found to be significantly wheezy and rhonchorous. He did receive 2 treatments with DuoNeb which significantly helped. The patient does have a history mood disorders and the use of systemic steroids usually to destabilize for that reason try avoid any systemic steroids at this time. The patient also undergo blood work in addition to function studies. I did reassure the patient that the on CT scan warrant likely related to reactivation his sarcoidosis. However, that was related to pneumonitis his cigarette smoking or any hypersensitivity reaction. 05/09/2022 the patient is here for a pulmonary follow-up visit. Overall the patient seems to be doing overall better. Although the last week or 2 he has had worsening respiratory symptoms and cough. He did respond well to the Trelegy inhaler but then he ran out and has not been using any. He still has his rescue inhaler. He did feel better while being on the maintenance therapy. Patient also continues to smoke cigarettes. He has been trying to cut down. The patient appears to be motivated he continued cutting now. We did review his last CT scan of the chest that was done back in April 2021 demonstrating resolution of some nodular densities. Although he had other areas of ground-glass opacities suggesting pneumonitis. Will plan to repeat the CT scan in a couple months. 10/13/2022 the patient is here for pulmonary follow-up visit. overall the patient is feeling better from a respiratory status. Still complains of some shortness of breath with activity mild in severity. also, has intermittent cough typically did productive of clear sputum. Likely related to his smoking. The Trelegy inhaler has been helpful. He also has a rescue inhaler that he uses as needed although he has not required it. He still dealing with smoking. He is trying to cut down. We did encourage him to do so. I also did review his recent CT scan of chest with him. It appears that some of the areas of pneumonitis have improved in his airway disease also has improved. Overall it is reassuring CT scan. Next year will be a good candidate for the lung cancer screening program. 04/13/2023 the patient is here for pulmonary follow-up visit. The patient is feeling unwell. The patient states that he did have issues with anxiety and his PT is he has been acting up any went to the [facility]. There she was noted to have having chest congestion and cough and had an x-ray done. I do not have those results. The patient since then has been having worsening symptoms with significant chest congestion and shortness of breath. Moderate severity. He has been using his inhalers although he has lost track and has not been using his Trelegy. Only his rescue inhaler. I again the reeducated him about his inhalers. The patient on exam does have some rhonchi and crackles on the right lung. Indeed he may have bronchopneumonia. Therefore will go ahead and treat him with couple antibiotics to treat for community-acquired pneumonia and also continue with respiratory therapy. If the patient is no better he is to call the office for an earlier assessment. In the meantime will see about getting him scheduled soon in the coming weeks for follow-up visit with an x-ray. 08/31/2023 the patient is here for a pulmonary follow-up visit. The patient overall has been doing well. Stopped using the Trelegy. The patient understands the needs to continue on daily basis. Otherwise medications not going to be effective for him. He does have increased cough and some shortness of breath with activity. Has been using his rescue inhaler at least daily. He understands that once he restarts the Trelegy he will not need it as often. Unfortunately continues smoking cigarettes. He is trying to cut down although is very hard for him to quit altogether. He had a chest x-ray back in March 2023 demonstrating no acute disease therefore resolving the lower respiratory infection. He is scheduled to continue with the lung cancer screening program. Although, not adherent to the program at this time. 03/07/2024 the patient is here for a pulmonary follow-up visit. Since we last spoke he became homeless and he had to go to a [facility]. He was having issues with alcohol abuse and also continues to smoke cigarettes. He did finally go to a rehabilitation program where he was accepted and currently participating. He is subsequently quit smoking and has been working on his alcohol sobriety. Overall the patient has been doing well. He has been using his respiratory therapy as prescribed. The patient has not had any recent imaging studies. In view of his smoking history he has a great candidate for the lung cancer screening program. His broken most of his life just recently quit about a week ago. He has a greater than 30 pack-year history of smoking. 09/15/2024 the patient is here for a pulmonary follow-up visit. Overall. Use the Trelegy data has not had to use his rescue inhaler often. Typically less than twice a week. In addition to that he has not nebulizer. I will make sure to send him prescriptions for him to have refills. His last imaging study of the chest was back in the spring when he had a low-dose CT scan demonstrating stable pulmonary nodules. No evidence of any pneumonitis. The patient however has 2 thyroid nodules. They do need follow-up. I will make sure to explain to the patient that he needs to follow-up with his primary care doctor or endocrine regarding those thyroid nodules. From a pulmonary standpoint the patient is doing well will continue to encourage him to quit smoking. He is down to 1 pack lasting him every 3 days. I am hopeful that he can continue quitting altogether. The patient is doing a lot better overall. 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 We did talk about vaccines. The patient is not interested in the flu with the COVID vaccine. No the RSV. I did encourage him to consider at least getting the pneumonia vaccine. [facility] Medical History (Updated 09/15/24 @ 13:52 by Dick Hay MD) Thyroid nodule Pulmonary nodules Tobacco dependence Bronchopneumonia Post traumatic stress disorder (PTSD) Bipolar II disorder Hallucination, visual Chronic bronchitis with wheezing Asthma-COPD overlap syndrome Pneumonitis Hyperhidrosis Back pain Diabetes Neuropathy Anxiety PTSD (post-traumatic stress disorder) Depression Gout Sarcoidosis GERD (gastroesophageal reflux disease) Surgical History History of bronchoscopy Hx of colonoscopy Family History Father Myocardial infarction Mother No problems noted. Social History Household Members: None Housing: House Housing Other:: rent Do you presently have visiting nurse or other home services: Yes Alcohol intake: current Alcohol intake frequency: holidays/special occasions only Patient Tobacco Use Status: Current everyday Tobacco user Tobacco use type: Cigarette Cigarette Packs Per Day: 1 Cigarettes Per Day: 20 Years Smoked: 53, prior 2 ppd smoker since age of 10 e-Cigarette/Vaping Use: Never Used Second Hand Smoke Exposure: Yes Substance Use Type: Marijuana service: No Sexual orientation: Straight/Heterosexual Review of Systems Const Denies chills, Denies fatigue and Denies fever(s) Eyes Denies change in vision ENT Reports Normal hearing present Card Denies chest pain, Denies chest pain at rest, Denies chest pain with activity, Denies pedal edema and Reports dyspnea on exertion Resp Reports cough, Reports dyspnea on exertion and Denies wheezing GI Denies abdominal pain Musc Denies abnormal gait, Denies muscle cramps and Denies radiating pain into limb Skin/Breast Denies skin ulcer and Denies wounds Neuro Reports Normal hearing present and Denies abnormal gait Psych Reports no additional complaints Endo Denies fatigue Aller/Immun Denies wheezing Physical Exam Vital Signs: Last Vital Signs Pulse 87 09/15/24 13:12 BP 118/60 09/15/24 13:12 Pulse Ox 96 09/15/24 13:12 Oxygen Delivery Method Room Air 09/15/24 13:12 BMI result Body Mass Index 31.8 Const General: alert Neck Neck: Yes normal visual inspection, Yes full ROM and Yes no lymphadenopathy Chest Chest palpation & inspection: normal inspection of the chest Resp Auscultation: no rhonchi, no wheezes and diminished lung sounds Cardio Rate: regular rate Rhythm: regular rhythm Heart sounds: S1 normal heart sound present and S2 normal heart sound present GI Palpation (GI): Soft to palpation and nontender Auscultation: normal bowel sounds Skin General skin exam: rashes and/or lesions noted Neuro Cranial nerves: Yes Normal hearing present Quality Reporting (2019) Adult ([facility] 138/2/) Smoking risk assessment performed?: Yes Patient Tobacco Use Status: Current everyday Tobacco user Assessment & Plan Assessment & Plan (1) Sarcoidosis: Comment: Remission Code(s): D86.9 - Sarcoidosis, unspecified Category: Medical (2) Asthma-COPD overlap syndrome: Code(s): J44.9 - Chronic obstructive pulmonary disease, unspecified Category: Medical (3) Tobacco dependence: Code(s): F17.200 - Nicotine dependence, unspecified, uncomplicated Category: Medical (4) Pulmonary nodules: Code(s): R91.8 - Other nonspecific abnormal finding of lung field Category: Medical (5) Thyroid nodule: Code(s): E04.1 - Nontoxic single thyroid nodule Category: Medical Plan Trelegy inhaler short-acting beta needed continue nebulizer As needed tobacco cessation, quitting down Needs to f/u with PCP or Endocrine for the Thyroid nodules LDCT spring 2024 follow-up Summer 2024 Medications: Changed From albuterol sulfate 2.5 mg (3 mL) inhalation Q4H PRN 180 mL 8RF shortness of breath or wheezing J44.9 - Chronic obstructive pulmonary disease, unspecified To albuterol sulfate 2.5 mg (3 mL) inhalation BID 180 mL 11RF 30 days J44.9 - Chronic obstructive pulmonary disease, unspecified Refilled albuterol sulfate 90 mcg/actuation (Ventolin HFA) 2 puffs inhalation Q4H PRN 6.7 grams 11RF bronchospasm Coding Level of Care Code Est Pt Level 4 (66589) Diagnoses Sarcoidosis D86.9 Asthma-COPD overlap syndrome J44.9 Tobacco dependence F17.200 Pulmonary nodules R91.8 Thyroid nodule E04.1 Time Spent (min) 17
== END 2024-09-15 13:30 | disposition home or self-care (01) ==
PROVIDERS: Visit Provider Hospitalist
DX: D86.9 Sarcoidosis, unspecified (principal); J44.9 Chronic obstructive pulmonary disease, unspecified; F17.200 Nicotine dependence, unspecified, uncomplicated; R91.8 Other nonspecific abnormal finding of lung field; E04.1 Nontoxic single thyroid nodule
CPT/HCPCS: 99214

== ENCOUNTER → 2024-09-15 12:51 | Outpatient (BNVA) | payer OTHER, SELFPAY | PROVIDERS: Visit Provider Hospitalist | DX: J44.9 Chronic obstructive pulmonary disease, unspecified (principal); D86.9 Sarcoidosis, unspecified; R91.8 Other nonspecific abnormal finding of lung field; E04.1 Nontoxic single thyroid nodule; F17.210 Nicotine dependence, cigarettes, uncomplicated | CPT/HCPCS: 99212 ==

== ENCOUNTER 2025-01-13 16:05 | Outpatient (REF) | payer OTHER, SELFPAY ==
--- OUTSIDE RECORDS SUMMARY | 2025-01-13 16:39 | XMS_ITS | Encounter Summary ---
Author Organization [employer] Address [address] [facility] [address] [place] [address] Care Team Providers Care Product Advisor Name Role Phone Cesilia Alston Primary Care Provider [phone] Reason for Visit * Reason Onset Date Comments FYI 10/03/2024 Encounter Details Date Type Department Care Team (Late st Contact Info) Description 10/03/2024 Telephone [facility] [address] [place], [place] [phone] Cesilia Alston ANP [address] [place], [place] [phone] FY Social History Tobacco Use Types Packs/Day Years Used Date Smoking Tobacco: Every Day Cigarettes Passive Smoke Exposure: Current Smokeless Tobacco: Never Comments:Smoked < 1/2 PPD bu t unk if continues Housing Stability Answer Date Recorded What is your housing situation today? I have inez rojas 03/26/[address] you li ve. Do you have problems with any of the following? None of the above 03/26/2024 Food Insecurity Answer Date Recorded Within the past 12 months, y ou worried that your food would run out before you got money to buy more: Sometimes True 2023 Within the past 12 months,th e food you bought just didn't last and you didn't have enough money to get more: Sometimes True 03/26/2024 Transportation Answer Date Recorded In the past 12 months, has l ack of transportation kept you from medical appts, meetings, work or from getting things needed for daily living? No 03/26/2024 Utilities Answer Date Recorded In the past 12 months, has t he electric, gas, oil or water company threatened to shut off services in your home? No 09/11/2023 Sex and Gender Information Value Date Recorded Sex Assigned at Male 09/25/2022 10:17 AM EDT Legal Sex Male 10:17 AM EDT Gender Identity Male 09/25/2022 10:17 AM EDT Sexual Orientation Don't know 09/25/2022 10 :17 AM EDT documented as of this encounter Miscellaneous Notes * Telephone Encounter - Leda Andres RN - 10/03/2024 12:20 PM EST Triage call Pt reports went for tooth extraction yesterday but, tooth was infected and no extraction performed. Pt was prescribed antibiotic by dentist . Pt calls today reports that antibiotics have been taken for 72hrs and Pt has facial swelling to eye area. Pt has applied ice without any relief of swelling. Pt is advised to seek evaluation at closest ED. Advised to try to contact emergency dentist for further assist. Pt is with clinician Jeanne Forrest who was given the phone to ask for assist. Advised to seek evaluation at ED. Protocol Used: Toothache (Adult) Protocol-Based Disposition: Go to Office or Video Visit Now Positive Triage Question: * Face is swollen * All higher-acuity triage questions were negative Care Advice Discussed: * Reassurance and Education - Toothache * Pain Medicines * Pain Medicines - Extra Notes and Warnings * Use a Cold Pack for Face and Toothache Pain * Reasons To Call Back - Severe pain lasts over 2 hours after pain medicine - Toothache lasts over 24 hours - You become worse * Telephone Encounter - [place] - 10/03/2024 11:55 AM EST TC from pt just wanted to report that he went to his dental office yesterday for extraction but anaesthesia did not work . Pt currently has a swollen face and infection . Pt will be going to ER todayand following up with Dental office . documented in this encounter Plan of Treatment Upcoming Encounters Date Type Department Care Team (Late st Contact Info) Description 01/27/2025 1:00 PM EST Office Visit [facility] [address] [place] [address] Cesilia Alston, ANP [address] [place] [address] documented as of this encounter Goals Goal Patient Goal Type Associated Problems Recent Progress Patient-Stated? Author Take your medication every day Lifestyle No Shannan Rojas, PharmD documented as of this encounter Visit Diagnoses Not on filedocumented in this encounter Care Teams Product Advisor Relationship Specialty Start Date End Date Cesilia Alston ANP [address] [place] [address] PCP - General Family Medicine 10/24/23 documented as of this encounter
--- OUTSIDE RECORDS SUMMARY | 2025-01-13 16:39 | XMS_ITS | Encounter Summary ---
Author Organization [employer] Address [address] [facility] [address] [place] [address] Care Team Providers Care Cereal Chemist Name Role Phone Cesilia Alston Primary Care Provider [phone] Reason for Visit * Reason Comments Med Refill Encounter Details Date Type Department Care Team (Late st Contact Info) Description 12/28/2023 Refill [facility] [address] [place], [place] [phone] Cesilia Alston ANP [address] [place], [place] [phone] Type 2 diabetes mellitus with other specified complication, with long-term current use of insulin ([facility]) Social History Tobacco Use Types Packs/Day Years Used Date Smoking Tobacco: Never Assessed Housing Stability Answer Date Recorded What is your housing situation today? I do not have housing (Staying with others, in a hotel, in a half-way, living outside on the street, on a beach, in a car, or in a park 09/07/[address] you li ve. Do you have problems with any of the following? None of the above 09/07/2023 Food Insecurity Answer Date Recorded Within the past 12 months, y ou worried that your food would run out before you got money to buy more: Often true 09/11/2023 Within the past 12 months,th e food you bought just didn't last and you didn't have enough money to get more: Often true Transportation Answer Date Recorded In the past 12 months, has l ack of transportation kept you from medical appts, meetings, work or from getting things needed for daily living? Yes, it has kept me from medical appointments or getting medications. 09/07/2023 Utilities Answer Date Recorded In the past [...] AM EDT documented as of this encounter Plan of Treatment Upcoming Encounters Date Type Department Care Team (Late st Contact Info) Description 01/27/2025 1:00 PM EST Office Visit [facility] [address] [place] [address] Cesilia Alston ANP [address] [place] [address] documented as of this encounter Goals Goal Patient Goal Type Associated Problems Recent Progress Patient-Stated? Author Take your medication every day Lifestyle No Shannan Rojas, PharmD documented as of this encounter Visit Diagnoses Diagnosis Type 2 diabetes mellitus with other specified complication, with long-term current use of insulin ([facility]) documented in this encounter Care Teams Cereal Chemist Relationship Specialty Start Date End Date Cesilia Alston ANP [address] [place] [address] PCP - General Family Medicine 10/24/23 documented as of this encounter
--- OUTSIDE RECORDS SUMMARY | 2025-01-13 16:39 | XMS_ITS | Encounter Summary ---
Author Organization [employer] Address [address] [place] [address] [place] [address] Care Team Providers Care Welder Metal Fab Name Role Phone Philomena Pereira Primary Care Provider [phone] Ritika Marsh MD Primary Care Pro vider Cesilia Alston Primary Care Provider [phone] Encounter Details Date Type Department Care Team (Late st Contact Info) Description 12/04/2022 Orders Only [facility] [address] [place], [place] [phone] Samantha Cast LPN Social History Tobacco Use Types Packs/Day Years Used Date Smoking Tobacco: Never Assessed Sex and Gender Information Value Date Recorded Sex Assigned at Male 09/25/2022 10:17 AM EDT Legal Sex Male 10:17 AM EDT Gender Identity Male 09/25/2022 10:17 AM EDT Sexual Orientation Don't know 09/25/2022 10 :17 AM EDT documented as of this encounter Plan of Treatment Upcoming Encounters Date Type Department Care Team (Late st Contact Info) Description 01/27/2025 1:00 PM EST Office Visit [facility] [address] [place] [address] Cesilia Alston ANP [address] [place] [address] documented as of this encounter Visit Diagnoses Not on filedocumented in this encounter Care Teams Welder Metal Fab Relationship Specialty Start Date End Date Philomena Pereira FNP PCP - General Family Medicine 10/16/22 05/31/23 Ritika Marsh MD [address] [place] [address] PCP - General Internal Medicine 06/01/23 10/23/23 Cesilia Alston ANP [address] [place] [address] PCP - General Family Medicine 10/24/23 documented as of this encounter
--- OUTSIDE RECORDS SUMMARY | 2025-01-13 16:39 | XMS_ITS | Patient Health Record ---
Author Organization [facility] Address [address] [place], [place] [phone] Care Team Providers Care Pershing Missile Crewmember Name Role Phone Pedro Luis AYALA, Hannah Primary Care Provider Unavaila emily [facility], [facility] Unavailable [phone] Kermit Andre Unavailable [phone] Reason For Referral No Information Medications Medication SIG (Take, Route, Frequency, Duration) Notes Start Date End Date Status hydrocortisone topical 1% 1 gwen topicall y 2 times a day for 14 day(s) 05/27/2013 Active colchicine 0.6 mg 2 tab(s) orally once and then 1 tab 1 hour later and then 1 tab BID x 5 days for 6 days 05/19/2013 Active Immunizations Vaccine Route Administration Date Status Comme nts Influenza Unknown 09/16/2010 Administered done at [facility] PPD planted SC Subcutaneous 11/11/2010 Administered PPD negative Unknown 11/14/2010 Administered PPD planted ID Intradermal 05/19/2013 Administered PPD negative Unknown 05/22/2013 Administered Problems Problem Type SNOMED Code ICD Code Onset Dates Problem Status W/U Status Risk Notes Problem Diabetes mellitus type II (75766689) Diabetes mellitus type II (250.00) Active confirmed Low Problem Gout (74357069) Gout NOS (274.9) Active confirmed Problem Tobacco use (689367918) Tobacco use disorder (305.1) Active confirmed Problem Family history: Diabetes mellitus (661718708) FAM HX-DIABETES MELLITUS (V18.0) Active confirmed Problem Obesity (947687183) Overweight BMI 25-29.9 (278.00) Active confirmed Encounters Encounter Location Date Provider Diagnosis [facility] [address] [place] [phone] 02/06/2024 [facility] [phone] 02/06/2024 Kermit Andre Plan Of Treatment No Information Insurance Providers Payer Name Payer Address Payer Phone Subscriber Number Group Number Insured Name Patient Relationship to Insured Coverage Start Date Coverage End Date [place] Medicaid Standard [address] [place] [address] [id number] Dick Rosales Self - patient is the insured Health [facility] Office [address] [address] [id number] Dick Rosales Self - patient is the insured Medical (General) History Medical History History ICD Code gout arthritis tobacco use
--- OUTSIDE RECORDS SUMMARY | 2025-01-13 16:39 | XMS_ITS ---
Author Organization [facility] Address [address] [place], [place] [id number] Care Team Providers Care School Psychology Professor Name Role Phone Pedro Luis AYALA, Hannah Primary Care Provider Unavaila emily [facility], [facility] Unavailable [phone] Kermit Andre Unavailable [phone] Medications Medication SIG (Take, Route, Frequency, Duration) Notes Start Date End Date Status hydrocortisone topical 1% 1 gwen topicall y 2 times a day for 14 day(s) 05/27/2013 Active colchicine 0.6 mg 2 tab(s) orally once and then 1 tab 1 hour later and then 1 tab BID x 5 days for 6 days 05/19/2013 Active Encounters Encounter Location Date Provider Diagnosis [facility] [id number] 02/06/2024 Kermit Andre Plan Of Treatment No Information Progress Notes * Dick ROSALES ADOB:1960 (63 yo M)Acc No.[id number]:02/06/2024 Case Management Patient:?Dick Rosales Provider:?Kermit Car :1960???Age:63 Y???Sex:Male Aristides e:02/06/2024 Address:[address] [place] [address] Pcp:Hannah Cloud MD Subjective: * Chief Complaints: * ??? * HPI: ???Social Service:?Date of encounter?[id number].?Referral Source?walk-in, returning client, self.?Interpretation for medical provider?housing, Mail supervisor modern languages.?Follow-up Required:?yes, Type of follow-up: CM.?Pt comprehension?Pt agrees with plan, Patient understood process and assisted with process.?Action taken (old)?form completion: intk, mail intk, autorization to release info,?.? * Medical History:? * Medications:?Taking colchici ne 0.6 mg tablet 2 tab(s) orally once and then 1 tab 1 hour later and then 1 tab BID x 5 days , Taking hydrocortisone topical 1% cream 1 gwen topically 2 times a day Objective: Assessment: Plan: * Treatment: * Images: Billing Information: * Visit Code:? * Procedure Codes:? Care Plan Details* * Sign off status: Completed true * Provider:?Kermit Car Date:?02/06/2024 Generated for Nelson rodgers/Tasneem/Rigo on:?01/13/2025 08:48 AM EST History and Physical Notes * HPI (History of Present Illness) Category Sub-Category Detail Notes Social Service Referral Source walk-in, trae rodgers client, self Interpretation for medical provider hous ing, Mail supervisor modern languages Action taken (old) form completion: int k, mail intk, autorization to release info, Follow-up Required: yes, Type of follow- up: CM Pt comprehension Pt agrees with plan, Patient understood process and assisted with process Date of encounter [id number]
--- OUTSIDE RECORDS SUMMARY | 2025-01-13 16:39 | XMS_ITS | Encounter Summary ---
Author Organization [facility] Address [address] [place] [address] Care Team Providers Care Insecticide Maker Name Role Phone Philomena Pereira Primary Care Provider [phone] Ritika Marsh MD Primary Care Pro vider Cesilia Alston Primary Care Provider [phone] Encounter Details Date Type Department Care Team (Late st Contact Info) Description 01/08/2023 Abstract [facility] [address] [place] [address] Philomena Pereira FNP [address] [place] [address] [place] [address] Social History Tobacco Use Types Packs/Day Years [...] 01/27/2025 1:00 PM EST Office Visit [facility] [address] [place] [address] Cesilia Alston ANP [address], [place] [phone] documented as of this encounter Visit Diagnoses Not on filedocumented in this encounter Care Teams Insecticide Maker Relationship Specialty Start Date End Date Philomena Pereira FNP PCP - General Family Medicine 10/16/22 05/31/23 Ritika Marsh MD [address] [place], [place] [phone] PCP - General Internal Medicine 06/01/23 10/23/23 Cesilia Alston ANP [address], [place] [phone] PCP - General Family Medicine 10/24/23 documented as of this encounter
--- OUTSIDE RECORDS SUMMARY | 2025-01-13 16:39 | XMS_ITS | Encounter Summary ---
Author Organization [employer] Address [address] [facility] [address] [place] [address] Care Team Providers Care Donor Floor Technician Name Role Phone Cesilia Alston FAISAL Primary Care Provider [phone] Reason for Visit * Reason Onset Date Comments Unable to run CCA 10/06/2024 Encounter Details Date Type Department Care Team (Late st Contact Info) Description 10/06/2024 Telephone [facility] [address] [place], [place] [phone] Ryan Zurita DDS [address] [place], [place] [phone] Unable to run CCA Social History Tobacco Use Types Packs/Day Years [...] encounter Miscellaneous Notes * Telephone Encounter - Christin Carreon - 10/06/2024 8:42 AM EST Patient coming in for an emergency visit . Unable to run CCA or post due to website being down. [facility] desk is aware DR documented in this encounter Plan of Treatment Upcoming Encounters Date Type Department Care Team (Late st Contact Info) Description 01/27/2025 1:00 PM EST Office Visit [facility] [address] [place] [address] Cesilia Alston ANP [address] [place] [address] documented as of this encounter Goals Goal Patient Goal Type Associated Problems Recent Progress Patient-Stated? Author Take your medication every day Lifestyle No Shannan Rojas, PharmD documented as of this encounter Visit Diagnoses Not on filedocumented in this encounter Care Teams Donor Floor Technician Relationship Specialty Start Date End Date Cesilia Alston ANP [address] [place] [id number] PCP - General Family Medicine 10/24/23 documented as of this encounter
--- OUTSIDE RECORDS SUMMARY | 2025-01-13 16:39 | XMS_ITS | Encounter Summary ---
Author Organization [facility] Address [address] [place] [address] Care Team Providers Care Sampler Pickup Name Role Phone Cesilia Alston NP Primary Care Provider [phone] Encounter Details Date Type Department Care Team (Latest Contact Info) Description 12/17/2024 10:59 AM EST - 12/17/2024 11:59 PM EST Hospital Encounter Xray [address] [place] [address] Acute cough Discharge Disposition: Home or Self Care Social History Tobacco Use Types Packs/Day Years Used Date Smoking Tobacco: Every Day Cigarettes Smokeless Tobacco: Current Sex and Gender Information Value Date Recorded Sex Assigned at Male 12/03/2024 3:34 PM EST Legal Sex Male 8:19 PM EST Gender Identity Male 12/03/2024 3:34 PM EST Sexual Orientation Straight 12/03/2024 3: 34 PM EST documented as of this encounter Functional Status * Are you deaf or do you have serious difficulty hearing? Answer Date of Assessment Author No 10/03/2024 3:24 PM EST Farrukh Andrews RN * Are you blind or do you have serious difficulty seeing, even when wearing glasses? Answer Date of Assessment Author No 10/03/2024 3:24 PM EST Farrukh Andrews RN * Do you have serious difficulty walking or climbing stairs? Answer Date of Assessment Author No 10/03/2024 3:24 PM Farrukh Burns RN * Do you have serious difficulty dressing or bathing? Answer Date of Assessment Author No 10/03/2024 3:24 PM Farrukh Burns RN * Because of a physical, mental, or emotional condition, do you have serious difficulty doing errandsalone such as visiting the doctor? Answer Date of Assessment Author No 10/03/2024 3:24 PM Donya Burns RN documented as of this encounter Mental Status * Because of a physical, mental, or emotional condition, do you have serious difficulty concentrating, remembering, or making decisions? (5 years old or older) Answer Entry Date Author No 10/03/2024 3:24 PM Farrukh Burns RN documented in this encounter Medications at Time of Discharge oxyCODONE (OXY-IR) 5 mg immediate release capsule Take 1 capsule (5 mg total) by mouth every 6 (six) hours if needed for severe pain. Max Daily Amount: 20 mg 15 capsule 10/03/2024 documented as of this encounter Discharge Disposition Disposition Code Departure Means Destination Home or Self Care documented in this encounter Plan of Treatment Not on file documented as of this encounter Procedures Procedure Name Priority Date/Time Associated Diagnosis Comments XR CHEST 2 VIEWS Routine 12/17/2024 11:0 4 AM EST Acute cough documented in this encounter Results * XR Chest 2 Views (12/17/2024 11:04 AM EST) Anatomical Region Laterality Modality Body Radiographic Daina ging 12/17/2024 11:3 5 AM EST Impressions 12/17/2024 11:37 AM EST No pneumonia or edema. Slight hyperinflation. -------- FINAL REPORT -------- Dictated By: Juan Cardoza Dictated Date: 12/17/2024 11:35 ET Assigned Physician: Juan Cardoza Reviewed and Electronically Signed By: Juan Cardoza Signed Date: 12/17/2024 11:37 ET Workstation ID: [id number] Transcribed By: Self Edit Transcribed Date: 12/17/2024 11:35 ET Narrative 12/17/2024 11:37 AM EST EXAMINATION: CHEST CLINICAL INFORMATION: Cough COMPARISON: Frontal view 11/23/2024 TECHNIQUE: 2 views of the chest FINDINGS: The cardiac size darius and vasculature are within normal limits. No consolidation or major zone of atelectasis. The visualized pleural margins are within normal limits. There are some osteophytes in the spine. The lateral projection suggests flattening of the diaphragm with a wide AP diameter of the chest Procedure Note Juan Cardoza MD - 12/17/2024 EXAMINATION: CHEST CLINICAL INFORMATION: Cough COMPARISON: Frontal view 11/23/2024 TECHNIQUE: 2 views of the chest FINDINGS: The cardiac size darius and vasculature are within normal limits. No consolidation or major zone of atelectasis. The visualized pleural margins are within normal limits. There are some osteophytes in the spine. The lateral projection suggests flattening of the diaphragm with a wide APdiameter of the chest IMPRESSION: No pneumonia or edema. Slight hyperinflation. -------- FINAL REPORT -------- Dictated By: Juan Cardoza Dictated Date: 12/17/2024 11:35 ET Assigned Physician: Juan Cardoza Reviewed and Electronically Signed By: Juan Cardoza Signed Date: 12/17/2024 11:37 ET Workstation ID: [id number] Transcribed By: Self Edit Transcribed Date: 12/17/2024 11:35 ET Cesilia Alston NP IMG XR PROCEDURES Final Result documented in this encounter Visit Diagnoses Diagnosis Acute cough documented in this encounter Care Teams Sampler Pickup Relationship Specialty Start Date End Date Cesilia Alston NP [address] [place] [phone] PCP - General 10/03/24 documented as of this encounter
--- OUTSIDE RECORDS SUMMARY | 2025-01-13 16:39 | XMS_ITS | Clinical Summary ---
Author Organization [facility] Address [address] [place] [address] Phone Care Team Providers Care Hepatologist Name Role Phone Cesilia Alston NP Primary Care Provider [phone] Allergies No known active allergies Medications oxyCODONE (OXY-IR) 5 mg immediate release capsule Take 1 capsule (5 mg total) by mouth every 6 (six) hours if needed for severe pain. Max Daily Amount: 20 mg 15 capsule 4 Active cephalexin (KEFLEX) 500 mg capsule Take 1 capsule (500 mg total) by mouth 4 (four) times a day for 7 days. 28 each 5 01/17/20 25 Active clotrimazole (LOTRIMIN) 1 % cream Apply topically 2 (two) times a day for 7 days. Apply to affected area 2 times daily 15 g 5 01/17/20 25 Active Active Problems Problem Noted Date Diagnosed Date Neuropathy Encounters Date Type Department Care Team Description 01/10/2025 11:23 AM EST - 01/10/2025 4:50 PM EST Emergency [facility] Emergency [address] [place] [address] Cristian Ramsey MD Hyperglycemia (Primary Dx); Balanoposthitis Discharge Disposition: Home or Self Care 01/05/2025 1:07 PM EST - 01/05/2025 11:59 PM EST Hospital Encounter [facility] Ultrasound [address] [place] [id number] Thyroid nodule Discharge Disposition: Home or Self Care 12/17/2024 10:59 AM EST - 12/17/2024 11:59 PM EST Hospital Encounter [facility] Xray [address] [place] [address] Acute cough Discharge Disposition: Home or Self Care 12/08/2024 1:28 PM EST - 12/08/2024 11:59 PM EST Hospital Encounter [facility] Ultrasound [address] [place] [address] Nontoxic single thyroid nodule Discharge Disposition: Home or Self Care 11/23/2024 12:21 PM EST - 11/23/2024 2:52 PM EST Emergency [facility] Emergency [address] [place] [address] Viral syndrome (Primary Dx) Discharge Disposition: Home or Self Care from Last 3 Months Medical History Medical History Date Comments Diabetes mellitus (CMS/HCC) Asthma Neuropathy Social History Tobacco Use Types Packs/Day Years Used Date Smoking Tobacco: Every Day Cigarettes Smokeless Tobacco: Current Tobacco Cessation:Ready to Q uit: Not Asked; Counseling Given: Not Answered Alcohol Use Standard Drinks/Week Comments Never 0 (1 standard drink = 0.6 oz pur e alcohol) Sex and Gender Information Value Date Recorded Sex Assigned at Male 12/03/2024 3:34 PM EST Legal Sex Male 8:19 PM EST Gender Identity Male 12/03/2024 3:34 PM EST Sexual Orientation Straight 12/03/2024 3: 34 PM EST Obstetrics History Last Filed Vital Signs Vital Sign Reading Time Taken Comments Blood Pressure 132/77 01/10/2025 10:05 AM EST Pulse 94 01/10/2025 10:05 AM EST Temperature 36.6 ??C (97.9 ??F) 01/10/2025 10:[address] Respiratory Rate 16 01/10/2025 10:05 AM EST Oxygen Saturation 98% 01/10/2025 10:05 AM EST Inhaled Oxygen Concentration - - Weight 109 kg (240 lb) 01/10/2025 10:05 AM EST Height 182.9 cm (6') 01/10/2025 10:05 AM EST Body Mass Index 32.55 01/10/2025 10:05 AM EST Plan of Treatment Health Maintenance Due Date Last Done Comments Diabetes: Annual Foot Exam 1971 Diabetes: Annual Retina Eye Exam 1971 Hepatitis A Vaccines (1 of 2 - Risk 2-dose series) 1980 RSV Immunization Patients 60 + Years Old (1 - Risk 60-74 years 1-dose series) 2021 Colorectal Cancer Screening: Colonoscopy 12/20/2023 HIV Screening 12/20/2023 Hepatitis C Screening 12/20/2023 Medicare Annual Wellness Visit 12/20/2023 Social Influencers of Health Screening 12/20/2023 Zoster Vaccines (2 of 2) 02/18/2024 12/24/2023 COVID-19 Vaccine (3 - 2023-2 5 season) 2024 04/28/2021, 03/31/2021 Influenza Vaccine (#1) 2024 Diabetes: Annual Urine Albumin-Creatinine Ratio (uACR) 10/03/2024 Diabetes: Blood Sugar Contro l Test (HGBA1C) 04/20/2025 10/21/2024, 07/18/2024 Depression Screening 10/21/2025 10/21/2024 Diabetes: Annual GFR (Glomerular Filtration Rate) 01/10/2026 01/10/2025 Cholesterol Screening (Lipid Panel) 01/15/2029 01/15/2024 DTaP,Tdap,and Td Vaccines (2 - Td or Tdap) 12/24/2033 12/24/2023 Pneumococcal Vaccine: 50+ Years Completed 12/06/2023, 01/08/2013 Pneumococcal Vaccine: Pediatrics (0 to 5 Years) and At-Risk Patients (6 to 64 Years) Completed 12/06/2023, 01/08/2013 HIB Vaccines Aged Out No longer eligi ble based on patient's age to complete this topic HPV Vaccines Aged Out No longer eligi ble based on patient's age to complete this topic Hepatitis B Vaccines Aged Out No long er eligible based on patient's age to complete this topic IPV Vaccines Aged Out No longer eligi ble based on patient's age to complete this topic MMR Vaccines Aged Out No longer eligi ble based on patient's age to complete this topic Meningococcal ACWY Vaccine Aged Out N o longer eligible based on patient's age to complete this topic Meningococcal B Vacine Aged Out No lo nger eligible based on patient's age to complete this topic RSV Immunization Patients Under 20 months Aged Out No longer eligible b ased on patient's age to complete this topic Varicella Vaccines Aged Out No longer eligible based on patient's age to complete this topic Procedures Procedure Name Priority Date/Time Associated Diagnosis Comments POCT GLUCOSE BLOOD Routine 01/10/2025 4: 24 PM EST POCT GLUCOSE BLOOD Routine 01/10/2025 3: [address] ABDOMEN PELVIS W CONTRAST STAT 01/10/2025 2:09 PM EST RECINOS URINE CULTURE TUBE STAT 01/10/2025 12:49 PM EST URINALYSIS WITH REFLEX MICROSCOPIC AND CULTURE STAT 01/10/2025 12:49 PM EST URINALYSIS WITH REFLEX MICROSCOPIC AND CULTURE STAT 01/10/2025 12:49 PM EST CBC WITH AUTO DIFFERENTIAL STAT 01/10/2025 12:12 PM EST COMPREHENSIVE METABOLIC PANEL STAT 01/10/2025 12:12 PM EST CBC AND DIFFERENTIAL STAT 01/10/2025 12:12 PM EST US BX NDL THYROID PERC Routine 5 2:28 PM EST Thyroid nodule FINE NEEDLE ASPIRATION Routine 5 1:44 PM EST Thyroid nodule XR CHEST 2 VIEWS Routine 12/17/2024 11:0 4 AM EST Acute cough US HEAD NECK SOFT TISSUE Routine 12/08/2024 1:49 PM EST Nontoxic single thyroid nodule XR CHEST 2 VIEWS STAT 11/23/2024 12:3 6 PM EST RESPIRATORY VIRUS PANEL MOLECULAR STUDY STAT 11/23/2024 12:27 PM EST from Last 3 Months Results * (ABNORMAL) POCT Glucose, blood (01/10/2025 4:24 PM EST) Only the most recent of2 resultswithin the time period is included. Glucose POCT 173(H) 70 - 100 mg/dL 01/10/2025 4:25 PM EST [facility] Blood Capillary blood specimen / Unknown 01/10/2025 4:24 PM EST 01/10/2025 4:26 PM EST us Cristian Ramsey MD LAB POINT OF CARE T EST DOCKED DEVICE UNSOLICITED RESULTS Final Result [facility] [address] [place] [address], [place] [phone] * CT Abdomen Pelvis w Contrast (01/10/2025 2:09 PM EST) Anatomical Region Laterality Modality Body Computed Tomogra phy 01/10/2025 2:19 PM EST Impressions 01/10/2025 2:28 PM EST No acute infectious or inflammatory process in the abdomen or pelvis. -------- FINAL REPORT -------- Dictated By: Leslie Noe Dictated Date: 01/10/2025 14:19 ET Assigned Physician: Leslie Noe Reviewed and Electronically Signed By: Leslie Noe Signed Date: 01/10/2025 14:28 ET Workstation ID: [id number] Transcribed By: Self Edit Transcribed Date: 01/10/2025 14:20 ET Narrative 01/10/2025 2:28 PM EST PROCEDURE: CT ABDOMEN/PELVIS WITH CONTRAST INDICATION: Diverticulitis suspected TECHNIQUE: CT of the abdomen and pelvis following the intravenous administration of 90cc Isovue 370. Multiplanar reformats. The examination was performed utilizing dose reduction techniques. Total DLP 1403 COMPARISON: ??04/04/2023 FINDINGS: ?? LOWER THORAX: Scarring/volume loss in the lingula. HEPATOBILIARY: No focal liver lesions. No cholelithiasis or biliary duct dilatation. SPLEEN: Mild splenomegaly. PANCREAS: No focal mass or ductal dilatation. ADRENALS: No nodules. KIDNEYS/URETERS: No hydronephrosis, stones, or solid mass. PELVIC ORGANS/BLADDER: Unremarkable. PERITONEUM / RETROPERITONEUM: No ascites or free air. No retroperitoneal lymphadenopathy. VESSELS: Scattered atherosclerotic calcifications throughout the aorta and its major branches. No aneurysm. ??Bilateral varicoceles. GI TRACT: Prominent stool burden throughout the colon. ??No periappendiceal inflammation. BONES AND SOFT TISSUES: Scattered degenerative changes seen throughout the bones. Soft tissues are unremarkable. Procedure Note Leslie Noe MD - 01/10/2025 PROCEDURE: CT ABDOMEN/PELVIS WITH CONTRAST INDICATION: Diverticulitis suspected TECHNIQUE: CT of the abdomen and pelvis following the intravenousadministration of 90cc Isovue 370. Multiplanar reformats. The examinationwas performed utilizing dose reduction techniques. Total DLP 1403 COMPARISON: 04/04/2023 FINDINGS: LOWER THORAX: Scarring/volume loss in the lingula. HEPATOBILIARY: No focal liver lesions. No cholelithiasis or biliary ductdilatation. SPLEEN: Mild splenomegaly. PANCREAS: No focal mass or ductal dilatation. ADRENALS: No nodules. KIDNEYS/URETERS: No hydronephrosis, stones, or solid mass. PELVIC ORGANS/BLADDER: Unremarkable. PERITONEUM / RETROPERITONEUM: No ascites or free air. No retroperitoneallymphadenopathy. VESSELS: Scattered atherosclerotic calcifications throughout the aorta andits major branches. No aneurysm. Bilateral varicoceles. GI TRACT: Prominent stool burden throughout the colon. No periappendicealinflammation. BONES AND SOFT TISSUES: Scattered degenerative changes seen throughout thebones. Soft tissues are unremarkable. IMPRESSION: No acute infectious or inflammatory process in the abdomen or pelvis. -------- FINAL REPORT -------- Dictated By: Leslie Noe Dictated Date: 01/10/2025 14:19 ET Assigned Physician: Leslie Noe Reviewed and Electronically Signed By: Leslie Noe Signed Date: 01/10/2025 14:28 ET Workstation ID: [id number] Transcribed By: Self Edit Transcribed Date: 01/10/2025 14:20 ET [place] CO[facility] IM CT PROCEDURES Final Resu lt * (ABNORMAL) Urinalysis with reflex microscopic and culture (01/10/2025 12:49 PM EST) Specific Roberta Urine 1.025 1.003 - 1.030 LAB URINALYSIS - AUTOMATED METHOD 01/10/2025 1:[address] [facility] pH, Urine 5.5 5.0 - 8.0 pH LAB URINALYSIS - AUTOMATED METHOD 01/10/2025 1:[address] [facility] Leukocytes, Urine Negative Negative LAB URINALYSIS - AUTOMATED METHOD 01/10/2025 1:[address] [facility] Nitrite, Urine Negative Negative LAB URINALYSIS - AUTOMATED METHOD 01/10/2025 1:[address] [facility] Protein, Urine Negative <=Trace mg/dL LAB URINALYSIS - AUTOMATED METHOD 01/10/2025 1:[address] [facility] Glucose, Urine >=1000(A) Negative mg/dL LAB URINALYSIS - AUTOMATED METHOD 01/10/2025 1:[address] [facility] Ketones, Urine Negative Negative mg/dL LAB URINALYSIS - AUTOMATED METHOD 01/10/2025 1:[address] [facility] Urobilinogen , Urine 0.2 0.2 - 1.0 mg/dL LAB URINALYSIS - AUTOMATED METHOD 01/10/2025 1:[address] [facility] Bilirubin, Urine Negative Negative LAB URINALYSIS - AUTOMATED METHOD 01/10/2025 1:[address] [facility] Blood, Urine Negative Negative LAB URINALYSIS - AUTOMATED METHOD 01/10/2025 1:[address] [facility] Urine Urine specimen obtained by clean catch procedure / Unknown Non-blood Collection / Unknown 01/10/2025 12:49 PM EST 01/10/2025 12:57 PM EST us [place] [facility] LAB URINE ORDERABLES Final R esult [facility] [address] [place] [address], [place] [phone] * Recinos urine culture tube (01/10/2025 12:49 PM EST) [facility] Extra Tube Hold for add-ons. 01/10/2025 2:01 PM EST [facility] Comment:Auto resulted. Urine Urine specimen obtained by clean catch procedure / Unknown Non-blood Collection / Unknown 01/10/2025 12:49 PM EST 01/10/2025 12:57 PM EST [place] [facility] LAB URINE ORDERABLES Final R esult [facility] [address] [place] [address], [place] [phone] * (ABNORMAL) CBC auto differential (01/10/2025 12:12 PM EST) [facility] WBC 6.0 4.8 - 10.8 K/mcL LAB HEMETOLOGY METHOD 01/10/2025 12:[address] [facility] RBC 4.40(L) 4.50 - 5.50 M/mcL LAB HEMETOLOGY METHOD 01/10/2025 12:[address] [facility] Hemoglobin 12.5(L) 13.5 - 17.5 g/dL LAB HEMETOLOGY METHOD 01/10/2025 12:[address] [facility] Hematocrit 36.5(L) 42.0 - 54.0 % LAB HEMETOLOGY METHOD 01/10/2025 12:[address] [facility] MCV 82.6 79.0 - 98.0 FL LAB HEMETOLOGY METHOD 01/10/2025 12:[address] [facility] MCH 28.3 27.0 - 32.0 pcg LAB HEMETOLOGY METHOD 01/10/2025 12:[address] [facility] MCHC 34.2 32.0 - 37.0 g/dL LAB HEMETOLOGY METHOD 01/10/2025 12:[address] [facility] RDW 12.9 11.0 - 15.0 % LAB HEMETOLOGY METHOD 01/10/2025 12:[address] [facility] Platelets 155 130 - 400 K/mcL LAB HEMETOLOGY METHOD 01/10/2025 12:[address] [facility] MPV 11.9(H) 7.0 - 11.0 FL LAB HEMETOLOGY METHOD 01/10/2025 12:[address] [facility] NRBC 0.0 <1.0 % LAB HEMETOLOGY METHOD 01/10/2025 12:[address] [facility] NRBC Absolute 0.00 <0.10 K/mcL LAB HEMETOLOGY METHOD 01/10/2025 12:[address] [facility] Neutrophils Relative 51.9 % LAB HEMETOLOGY METHOD 01/10/2025 12:[address] [facility] Lymphocytes Relative 36.3 % LAB HEMETOLOGY METHOD 01/10/2025 12:[address] [facility] Monocytes Relative 6.0 % LAB HEMETOLOGY METHOD 01/10/2025 12:[address] [facility] Eosinophils Relative 3.8 % LAB HEMETOLOGY METHOD 01/10/2025 12:[address] [facility] Basophils Relative 1.3 % LAB HEMETOLOGY METHOD 01/10/2025 12:[address] [facility] Immature Granulocytes Relative 0.7 % LAB HEMETOLOGY METHOD 01/10/2025 12:[address] [facility] Neutrophils Absolute 3.14 1.50 - 7.00 K/mcL LAB HEMETOLOGY METHOD 01/10/2025 12:[address] [facility] Lymphocytes Absolute 2.19 1.00 - 5.00 K/mcL LAB HEMETOLOGY METHOD 01/10/2025 12:34 PM EST [facility] Monocytes Absolute 0.36 0.20 - 1.00 K/mcL LAB HEMETOLOGY METHOD 01/10/2025 12:34 PM EST [facility] Eosinophils Absolute 0.23 0.00 - 0.50 K/mcL LAB HEMETOLOGY METHOD 01/10/2025 12:34 PM EST [facility] Basophils Absolute 0.08 0.00 - 0.20 K/mcL LAB HEMETOLOGY METHOD 01/10/2025 12:[address] [facility] Immature Granulocytes Absolute 0.04(H) 0.00 - 0.03 K/mcL LAB HEMETOLOGY METHOD 01/10/2025 12:[address] [facility] Blood Venous blood specimen / Unknown Venipuncture / Unknown 01/10/2025 12:12 PM EST 01/10/2025 12:16 PM EST [place] [facility] LAB BLOOD ORDERABLES Final R esult [facility] [address] [place] [address], * (ABNORMAL) Comprehensive metabolic panel (01/10/2025 12:12 PM EST) Sodium 135 133 - 145 mmol/L LAB CHEMISTRY METHOD 01/10/2025 1:[address] [facility] Potassium 4.1 3.5 - 5.5 mmol/L LAB CHEMISTRY METHOD 01/10/2025 1:[address] [facility] Chloride 105 96 - 110 mmol/L LAB CHEMISTRY METHOD 01/10/2025 1:[address] [facility] CO2 24 21 - 32 mmol/L LAB CHEMISTRY METHOD 01/10/2025 1:[address] [facility] Anion Gap 6 3 - 11 LAB CHEMISTRY METHOD 01/10/2025 1:[address] [facility] Glucose 382(H) 70 - 100 mg/dL LAB CHEMISTRY METHOD 01/10/2025 1:[address] [facility] BUN 14 5 - 25 mg/dL LAB CHEMISTRY METHOD 01/10/2025 1:[address] [facility] Creatinine 1.19 0.70 - 1.30 mg/dL LAB CHEMISTRY METHOD 01/10/2025 1:[address] [facility] eGFR 69 >=60 mL/min/1. 73m2 LAB CHEMISTRY METHOD 01/10/2025 1:[address] [facility] Comment:Calculation based on the??Chronic Kidney Disease Epidemiology Collaboration (CKD-EPI) equation refit??without adjustment for race. BUN/Creatinine Ratio 11.8 LAB CHEMISTRY METHOD 01/10/2025 1:[address] [facility] Calcium 8.7 8.5 - 10.5 mg/dL LAB CHEMISTRY METHOD 01/10/2025 1:[address] [facility] AST (SGOT) 13 10 - 42 unit/L LAB CHEMISTRY METHOD 01/10/2025 1:[address] [facility] ALT (SGPT) 33 10 - 60 unit/L LAB CHEMISTRY METHOD 01/10/2025 1:[address] [facility] Alkaline Phosphatase 151(H) 42 - 121 unit/L LAB CHEMISTRY METHOD 01/10/2025 1:[address] [facility] Total Protein 7.1 6.0 - 8.0 g/dL LAB CHEMISTRY METHOD 01/10/2025 1:[address] [facility] Albumin 3.9 3.2 - 5.0 g/dL LAB CHEMISTRY METHOD 01/10/2025 1:[address] [facility] Total Bilirubin 0.7 0.0 - 1.4 mg/dL LAB CHEMISTRY METHOD 01/10/2025 1:05 PM EST [facility] Blood Venous blood specimen / Unknown Venipuncture / Unknown 01/10/2025 12:12 PM EST 01/10/2025 12:16 PM EST [place] [facility] LAB BLOOD ORDERABLES Final R esult [facility] [address] [place] [address], [place] [phone] * US Bx Ndl Thyroid Perc (01/05/2025 2:28 PM EST) Anatomical Region Laterality Modality Head and Neck Ultrasound 01/05/2025 3:02 PM EST Narrative 01/05/2025 3:20 PM EST INDICATION: left thyroid nodule TECHNIQUE: Written informed consent obtained. Patient placed supine on the ultrasound stretcher. Multiple images obtained of the left thyroid. After review of the images, the appropriate area of skin was localized under real-time ultrasound. This region was draped and prepped in the usual sterile fashion. 2% buffered lidocaine was used as a local anesthetic. Under real-time ultrasound guidance, needle biopsy was performed using FNA technique. A total of 3 passes were obtained. Final pathology pending. The patient tolerated the procedure well and left the department in stable condition without immediate complications. FINDINGS: Images obtained during needle biopsy demonstrate tip of needle within left thyroid nodule. CONCLUSION: Ultrasound-guided biopsy of left thyroid nodule as described above. -------- FINAL REPORT -------- Dictated By: Su Morgan Dictated Date: 01/05/2025 15:02 ET Assigned Physician: Rl Keys Reviewed and Electronically Signed By: Rl Keys Signed Date: 01/05/2025 15:20 ET Workstation ID: [id number] Transcribed By: Self Edit Transcribed Date: 01/05/2025 15:06 ET Resident/PA/COREMAKING MACHINE SETTER: Su Morgan Procedure Note Rl Keys MD - 01/05/2025 INDICATION: left thyroid nodule TECHNIQUE: Written informed consent obtained. Patient placed supine on theultrasound stretcher. Multiple images obtained of the left thyroid. Afterreview of the images, the appropriate area of skin was localized underreal-time ultrasound. This region was draped and prepped in the usualsterile fashion. 2% buffered lidocaine was used as a local anesthetic.Under real-time ultrasound guidance, needle biopsy was performed using FNAtechnique. A total of 3 passes were obtained. Final pathology pending. Thepatient tolerated the procedure well and left the department in stablecondition without immediate complications. FINDINGS: Images obtained during needle biopsy demonstrate tip of needle within leftthyroid nodule. CONCLUSION: Ultrasound-guided biopsy of left thyroid nodule as described above. -------- FINAL REPORT -------- Dictated By: Su Morgan Dictated Date: 01/05/2025 15:02 ET Assigned Physician: Rl Keys Reviewed and Electronically Signed By: Rl Keys Signed Date: 01/05/2025 15:20 ET Workstation ID: [id number] Transcribed By: Self Edit Transcribed Date: 01/05/2025 15:06 ET Resident/PA/COREMAKING MACHINE SETTER: uS Morgan us Cesilia Alston NP IMG US PROCEDURES Final Result * Fine needle aspiration (01/05/2025 1:44 PM EST) Final Diagnosis A. Left thyroid, fine needle aspiration (ThinPrep, direct smears): Benign ([place] Category II) Consistent with follicular nodular disease (includes adenomatoid nodule, colloid nodule, etc.) 01/06/2025 2:44 PM EST [facility] Specimen A Adequacy Satisfactory for evaluation 01/06/2025 2:44 PM EST [facility] Comment:This is an appended report. These results have been appended to a previously preliminary verified report. Gross Description A. Thyroid, left thyroid nodule: Received in Cytolyt 30 ml of pink fluid; 1 ThinPrep 3 passes 6 direct smears (3 air-dried and 3 alcohol fixed) 01/06/2025 2:44 PM EST [facility] Intraoperative Consultation A. Thyroid, left thyroid nodule: Predominantly benign hemorrhagic cyst contents. Insufficient follicular epithelium in preliminary review. Tiffanie Tompkins MD 01/05/25 14:45 01/06/2025 2:44 PM EST [facility] Disclaimer Unless otherwise specified, all tissue is 10% NB formalin fixed and paraffin embedded. Technical cytopathology services provided by [facility], at [address] [place] [address] (CLIA # [id number]/Froylan Wheatley MD, Peer Financial Counselor.) 01/06/2025 2:44 PM EST [facility] Fine Needle Aspirate Thyroid structure / Unknown 01/05/2025 1:44 PM EST 01/05/2025 2:36 PM EST us Su COHEN LAB PATHOLOGY ORDERABLES Final R esult [facility] [address] [place] [address], * XR Chest 2 Views (12/17/2024 11:04 AM EST) Only the most recent of2 resultswithin the time period is included. Anatomical Region Laterality Modality Body Radiographic Daina ging 12/17/2024 11:3 5 AM EST Impressions 12/17/2024 11:37 AM EST No pneumonia or edema. Slight hyperinflation. -------- FINAL REPORT -------- Dictated By: Juan Cardoza Dictated Date: 12/17/2024 11:35 ET Assigned Physician: Juan Cardoza Reviewed and Electronically Signed By: Juan Cardoza Signed Date: 12/17/2024 11:37 ET Workstation ID: [id number] Transcribed By: Self Edit Transcribed Date: 12/17/2024 [...] Signed Date: 12/17/2024 11:37 ET Workstation ID: [id number] Transcribed By: Self Edit Transcribed Date: 12/17/2024 11:35 ET us Cesilia Alston NP IMG XR PROCEDURES Final Result * US Head Neck Soft Tissue (12/08/2024 1:49 PM EST) Anatomical Region Laterality Modality Head and Neck Ultrasound 12/15/2024 10:0 7 AM EST Impressions 12/15/2024 10:18 AM EST There is a 2.5 x 2.3 x 2.1 cm mixed cystic and solid mass in the interpolar region of the left lobe, mildly increased in size from 2.2 x 2.3 x 2.2 cm on the prior study performed 06/03/2024. This is categorized as TI-RADS 3. Ultrasound-guided biopsy, or follow-up ultrasound examination in one year, may be obtained. Code 21645 TI-RADS Category 1: ??0 pts; benign; no follow-up TI-RADS Category 2: ??2 pts; not suspicious; no FNA TI-RADS Category 3: ??3 pts; mildly suspicious; < or = 1.5 cm f/u; > or = 2.5 FNA (f/u 1, 3 and 5 yr) TI-RADS Category 4: ??4-6 pts; moderately suspicious; < or = 1.0 cm follow-up; 1.5 cm FNA, (f/u 1, 2, 3 and 5 yr) TI-RADS Category 5: ??7 or > pts; highly suspicious; .5-.9 cm f/u; 1.0 cm or > FNA (f/u annually up to 5 yr) -------- FINAL REPORT -------- Dictated By: Jaya Mullen Dictated Date: 12/15/2024 10:07 ET Assigned Physician: Jaya Mullen Reviewed and Electronically Signed By: Jaya Mullen Signed Date: 12/15/2024 10:18 ET Workstation ID: [id number] Transcribed By: Self Edit Transcribed Date: 12/15/2024 10:07 ET Narrative 12/15/2024 10:18 AM EST HISTORY: The patient is a 64-year-old male for follow-up of a left thyroid nodule. FINDINGS: Real-time ultrasonography of the thyroid gland is performed. The thyroid gland is at the upper limits of normal in size, with the right lobe measuring 4.7 x 1.9 x 2.2 cm and left lobe measuring 4.9 x 2.7 x 2.3 cm, mildly decreased in size since the prior study of 06/03/2024; this difference is likely consequent to technical scanning factors. The isthmus measures 4.2 mm in thickness. In the right lobe, no mass or other abnormality is seen; the 2.4 mm hypoechoic nodule in the interpolar area seen on the prior examination is no longer demonstrated. In the left lobe, again seen is a 2.5 x 2.3 x 2.1 cm well-circumscribed at the interpolar region, predominantly cystic mass, also demonstrated on the prior study. This has minimally increased in size since the prior study. This contains some isoechoic to mildly hypoechoic components. This is again seen to be wider than it is tall and demonstrates no wall irregularity or microcalcifications. This is again categorized as TI-RADS 3. Procedure Note Jaya Mullen MD - 12/15/2024 HISTORY: The patient is a 64-year-old male for follow-up of a left thyroidnodule. FINDINGS: Real-time ultrasonography of the thyroid gland is performed. Thethyroid gland is at the upper limits of normal in size, with the rightlobe measuring 4.7 x 1.9 x 2.2 cm and left lobe measuring 4.9 x 2.7 x 2.3cm, mildly decreased in size since the prior study of 06/03/2024; thisdifference is likely consequent to technical scanning factors. The isthmusmeasures 4.2 mm in thickness. In the right lobe, no mass or other abnormality is seen; the 2.4 mmhypoechoic nodule in the interpolar area seen on the prior examination isno longer demonstrated. In the left lobe, again seen is a 2.5 x 2.3 x 2.1 cm well-circumscribed atthe interpolar region, predominantly cystic mass, also demonstrated on theprior study. This has minimally increased in size since the prior study.This contains some isoechoic to mildly hypoechoic components. This isagain seen to be wider than it is tall and demonstrates no wallirregularity or microcalcifications. This is again categorized as TI-RADS3. IMPRESSION: There is a 2.5 x 2.3 x 2.1 cm mixed cystic and solid mass in theinterpolar region of the left lobe, mildly increased in size from 2.2 x2.3 x 2.2 cm on the prior study performed 06/03/2024. This is categorized asTI-RADS 3. Ultrasound-guided biopsy, or follow-up ultrasound examination in oneyear, may be obtained. Code 55308 TI-RADS Category 1: 0 pts; benign; no follow-up TI-RADS Category 2: 2 pts; not suspicious; no FNA TI-RADS Category 3: 3 pts; mildly suspicious; < or = 1.5 cm f/u; > or =2.5 FNA (f/u 1, 3 and 5 yr) TI-RADS Category 4: 4-6 pts; moderately suspicious; < or = 1.0 cmfollow-up; 1.5 cm FNA, (f/u 1, 2, 3 and 5 yr) TI-RADS Category 5: 7 or > pts; highly suspicious; .5-.9 cm f/u; 1.0 cmor > FNA (f/u annually up to 5 yr) -------- FINAL REPORT -------- Dictated By: Jaya Mullen Dictated Date: 12/15/2024 10:07 ET Assigned Physician: Jaya Mullen Reviewed and Electronically Signed By: Jaya Mullen Signed Date: 12/15/2024 10:18 ET Workstation ID: [id number] Transcribed By: Self Edit Transcribed Date: 12/15/2024 10:07 ET us 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 Influenza A PCR Not Detected Not Detected LAB MICROBIOLOGY METHOD 11/23/2024 2:[address] [facility] Influenza B PCR Not Detected Not Detected LAB MICROBIOLOGY METHOD 11/23/2024 2:[address] [facility] Coronavirus 229E Not Detected Not Detected LAB MICROBIOLOGY METHOD 11/23/2024 2:[address] [facility] Coronavirus HKU1 Not Detected Not Detected LAB MICROBIOLOGY METHOD 11/23/2024 2:[address] [facility] Coronavirus OC43 Not Detected Not Detected LAB MICROBIOLOGY METHOD 11/23/2024 2:[address] [facility] Coronavirus NL63 Not Detected Not Detected LAB MICROBIOLOGY METHOD 11/23/2024 2:[address] [facility] Parainfluenza Virus 1 Not Detected Not Detected LAB MICROBIOLOGY METHOD 11/23/2024 2:[address] [facility] Parainfluenza Virus 2 Not Detected Not Detected LAB MICROBIOLOGY METHOD 11/23/2024 2:[address] [facility] Parainfluenza Virus 3 Not Detected Not Detected LAB MICROBIOLOGY METHOD 11/23/2024 2:[address] [facility] Parainfluenza Virus 4 Not Detected Not Detected LAB MICROBIOLOGY METHOD 11/23/2024 2:[address] [facility] RSV PCR Not Detected Not Detected LAB MICROBIOLOGY METHOD 11/23/2024 2:[address] [facility] Human Metapneumovirus A and B Not Detected Not Detected LAB MICROBIOLOGY METHOD 11/23/2024 2:[address] [facility] Rhinovirus/Entero virus Not Detected Not Detected LAB MICROBIOLOGY METHOD 11/23/2024 2:[address] [facility] Bordetella pertussis Not Detected Not Detected LAB MICROBIOLOGY METHOD 11/23/2024 2:[address] [facility] Bordetella parapertussis Not Detected Not Detected LAB MICROBIOLOGY METHOD 11/23/2024 2:[address] [facility] Mycoplasma pneumo by PCR Not Detected Not Detected LAB MICROBIOLOGY METHOD 11/23/2024 2:[address] [facility] Chlamydia pneumoniae Not Detected Not Detected LAB MICROBIOLOGY METHOD 11/23/2024 2:[address] [facility] SARS COV-2 Not Detected Not Detected LAB MICROBIOLOGY METHOD 11/23/2024 2:[address] [facility] Swab Both anterior nares / Unknown Non-blood Collection / Unknown 11/23/2024 12:27 PM EST 11/23/2024 12:54 PM [facility] - 11/23/2024 2:02 PM EST Testing was performed using the [employer] Respiratory Pathogen PCR Assay. All results must be correlated with the clinical findings. Results should not be used as the sole basis for diagnosis. False Negative results may occur from the presence of sequence variants in the region targeted by the assay or the presence of inhibitors. Results may be affected by concurrent antiviral/antimicrobial therapy or levels of organisms that are below the limit of detection. Jimena COHEN LAB MICROBIOLOGY - GENERAL ORD ERABLES Final Result [facility] [address] [place] [address], from Last [address] [address] [address] MEDICARE Member Subscriber Plan / Payer (Ef fective 2018-Present) Name:Dick Rosales Sr Relation to Subscriber:Self Name:Dick Rosales Sr Payer ID:[id number] Group ID:[id number] Type:Not on file Address: [place] [address] [address] [id number] Care Teams Hepatologist Relationship Specialty Start Date End Date Cesilia Alston NP [address] [place] [id number] PCP - General 10/03/24
--- OUTSIDE RECORDS SUMMARY | 2025-01-13 16:39 | XMS_ITS ---
Author Organization [facility] Address [address] [place], [place] [id number] Care Team Providers Care Lab Scientist Name Role Phone Pedro Luis AYALA, Hannah Primary Care Provider [facility], [facility] Unavailable [phone] REASON FOR VISIT office: Dta address change Medications Medication SIG (Take, Route, Frequency, Duration) Notes Start Date End Date Status colchicine 0.6 mg 2 tab(s) orally once and then 1 tab 1 hour later and then 1 tab BID x 5 days for 6 days 05/19/2013 Active hydrocortisone topical 1% 1 gwen topicall y 2 times a day for 14 day(s) 05/27/2013 Active Encounters Encounter Location Date Provider Diagnosis [facility] [phone] 02/06/2024 [facility] Plan Of Treatment No Information Progress Notes * Dick ROSALES ADOB:1960 (63 yo M)Acc No.[id number]:02/06/2024 Patient:?Dick Rosales Provider:?[facility] :1960???Age:63 Y???Sex:Male Aristides e:02/06/2024 Address:[address] [place] [address] Pcp:Hannah Cloud MD Subjective: * Chief Complaints: * ???1. office: Dta address [facility]. * HPI: ???Social Service:?Date of encounter?02/06/24.?Referral Source?Seen at: [facility].?Action Taken?Insurance eligibility assessed?02/06/2024 [id number] MHSTD w Medicare A & B,?SNAP application?02/06/2024 Client came in needed to update address with DTA. Assisted client with prosses and faxed new address verification., documents faxed to DTA.?Follow-up Required:?no.?Pt comprehension?Pt agrees with plan, Patient understood process and assisted with process.? * Medical History:? * Medications:?Taking colchici ne 0.6 mg tablet 2 tab(s) orally once and then 1 tab 1 hour later and then 1 tab BID x 5 days , Taking hydrocortisone topical 1% cream 1 gwen topically 2 times a day Objective: Assessment: Plan: * Images: Billing Information: Care Plan Details* * Sign off status: Completed true * Provider:?[facility] Date:?02/06/2024 Generated for Nelson rodgers/Tasneem/Rigo on:?01/13/2025 10:04 AM EST History and Physical Notes * HPI (History of Present Illness) Category Sub-Category Detail Notes Social Service Referral Source Seen at: [facility] or Follow-up Required: no Pt comprehension Pt agrees with plan, Patient understood process and assisted with process Action Taken Insurance eligibilit y assessed: 02/06/2024 [id number] MHSTD w Medicare A & B SNAP application: 02/06/2024 Client came in needed to update address with DTA. Assisted client with prosses and faxed new address verification., documents faxed to DTA Date of encounter 02/06/24
--- OUTSIDE RECORDS SUMMARY | 2025-01-13 16:39 | XMS_ITS | Encounter Summary ---
Author Organization [employer] Address [address] [place] [address] Care Team Providers Care Home Attendant Name Role Phone Cesilia Alston Primary Care Provider [phone] Reason for Visit * Reason Onset Date Comments Discharging Patient 11/06/2023 Encounter Details Date Type Department Care Team (Late st Contact Info) Description 11/06/2023 Telephone [facility] [address] [place], [place] [phone] Cesilia Alston ANP [address] [place], [place] [phone] Discharging Patient Social History Tobacco Use Types Packs/Day Years Used Date Smoking Tobacco: Never Assessed Housing Stability Answer Date Recorded What is your housing situation today? I do not have housing (Staying with others, in a hotel, in a long-term, living outside on the street, on a [...] encounter Miscellaneous Notes * Telephone Encounter - Devika Cabral - 11/06/2023 2:26 PM EST TC from Roberto with [facility] stating that pt will be discharge from services due to pt not answering phone calls and denying services. Please contact Roberto @ [phone] documented in this encounter Plan of Treatment Upcoming Encounters Date Type Department Care Team (Late st Contact Info) Description 01/27/2025 1:00 PM EST Office Visit [facility] [address] [place] [address] Cesilia Alston ANP [address] [place] [address] documented as of this encounter Visit Diagnoses Not on filedocumented in this encounter Care Teams Home Attendant Relationship Specialty Start Date End Date Cesilia Alston ANP [address] [place] [phone] PCP - General Family Medicine 10/24/23 documented as of this encounter
--- OUTSIDE RECORDS SUMMARY | 2025-01-13 16:39 | XMS_ITS | Encounter Summary ---
Author Organization [facility] Address [address] [place] [address] Care Team Providers Care Guard Lieutenant Name Role Phone Cesilia Alston NP Primary Care Provider [phone] Reason for Visit * Reason Comments Groin Pain Reports groin/prosta te/swelling since yesterday Encounter Details Date Type Department Care Team (Late st Contact Info) Description 01/10/2025 11:23 AM EST - 01/10/2025 4:50 PM EST Emergency [facility] Emergency [address] [place] [address] Cristian Ramsey MD [address] [address] Hyperglycemia (Primary Dx); Balanoposthitis Discharge Disposition: Home or Self Care Social History Tobacco Use Types Packs/Day Years Used Date Smoking Tobacco: Every Day Cigarettes Smokeless Tobacco: Current Alcohol Use Standard Drinks/Week Comments Never 0 (1 standard drink = 0.6 oz pur e alcohol) Sex and Gender Information Value Date Recorded Sex Assigned at Male 12/03/2024 3:34 PM EST Legal Sex Male 8:19 PM EST Gender Identity Male 12/03/2024 3:34 PM EST Sexual Orientation Straight 12/03/2024 3: 34 PM EST documented as of this encounter Last Filed Vital Signs Vital Sign Reading [...] Mass Index 32.55 01/10/2025 10:05 AM EST documented in this encounter Functional Status * Are you [...] 3:24 PM EST Farrukh Andrews RN * Because of a physical, mental, or emotional condition, do you have serious difficulty doing errandsalone such as visiting the doctor? Answer Date of Assessment Author No 10/03/2024 3:24 PM Farrukh Burns RN documented as of this encounter Mental Status * Because of a physical, mental, or emotional condition, do you have serious difficulty concentrating, remembering, or making decisions? (5 years old or older) Answer Entry Date Author No 10/03/2024 3:24 PM Farrukh Burns RN documented in this encounter Discharge Instructions * Discharge Instructions* NOEL Castaneda - 01/10/2025 4:11 PM EST Continue your medications as previously prescribed. There is no evidence of a prostate infection, however you do have an infection of the foreskin. Please take Keflex 4 times per day x 7 days and apply the antifungal cream twice a day when you retract the foreskin. It is very important that you clean and dry the foreskin very well. Follow-up with your PCP. * Attachments The following attachments cannot be sent through Care Everywhere. * Balanitis (Mongolian) documented in this encounter Medications at Time of Discharge cephalexin (KEFLEX) 500 mg capsule Take 1 capsule (500 mg total) by mouth 4 (four) times a day for 7 days. 28 each 01/10/2025 5 clotrimazole (LOTRIMIN) 1 % cream Apply topically 2 (two) times a day for 7 days. Apply to affected area 2 times daily 15 g 01/10/2025 5 oxyCODONE (OXY-IR) 5 mg immediate release capsule Take 1 capsule (5 mg total) by mouth every 6 (six) hours if needed for severe pain. Max Daily Amount: 20 mg 15 capsule 10/03/2024 documented as of this encounter Ordered Prescriptions Prescription Sig Dispense Quantity Refills Last Filled Start Date End Date clotrimazole (LOTRIMIN) 1 % cream Apply topically 2 (two) times a day for 7 days. Apply to affected area 2 times daily 15 g 01/10/2025 5 cephalexin (KEFLEX) 500 mg capsule Take 1 capsule (500 mg total) by mouth 4 (four) times a day for 7 days. 28 each 01/10/2025 5 documented in this encounter Discharge Disposition Disposition Code Departure Means Destination Comment s Home or Self Care documented in this encounter Progress Notes * Rasheeda Quinonez RN - 01/10/2025 10:08 AM EST For the past 2 days he has had lower abdominal pain radiating to his testicles and his penis is swollen and red. * NOEL Castaneda - 01/10/2025 9:56 AM EST Emergency Medicine Note Patient Name: Dick Rosales Initial Evaluation: 01/10/2025 : 1960 Patient's PCP: Cesilia Alston NP Emergency Physician: NOEL Castaneda History of Present Illness Chief Complaint: Chief Complaint Patient presents with ??? Groin Pain Reports groin/prostate/swelling since yesterday HPI: 64-year-old male with a history of diabetes complaining of dysuria urinary frequency and perineal pain. Patient states this been going on for 2 days. Patient is concerned because he had similar symptoms in the past and was diagnosed with a prostate infection. Denies fever chills nausea vomiting. Patient also complaining of some lower abdominal discomfort. That is also been going on for 2 days. ROS: I have performed a ROS with the pertinent positives and negatives documented in the history ofpresent illness. Previous History Past Medical History: Diagnosis Date ??? Asthma ??? Diabetes mellitus (CMS/HCC) ??? Neuropathy History reviewed. No pertinent surgical history. Social History Tobacco Use ??? Smoking status: Every Day Types: Cigarettes ??? Smokeless tobacco: Current Substance Use Topics ??? Alcohol use: Never ??? Drug use: Never No family history on file. has No Known Allergies. No current facility-administered medications on file prior to encounter. Current Outpatient Medications on File Prior to Encounter Medication Sig Dispense Refill ??? oxyCODONE (OXY-IR) 5 mg immediate release capsule Take 1 capsule (5 mg total) by mouth every 6 (six) hours if needed for severe pain. Max Daily Amount: 20 mg 15 capsule 0 Physical Exam ED Triage Vitals [01/10/25 1005] Temp Heart Rate Resp BP 36.6 ??C (97.9 ??F) 94 16 132/77 SpO2 Temp Source Heart Rate Source Patient Position 98 % Oral -- -- BP Location FiO2 (%) -- -- General: Well-appearing, well nourished, in no acute distress HEENT: PERRL, EOMI, external ears and nose appear unremarkable, airway is patent Neck: Supple, full range of motion Chest: Clear to auscultation; no evidence of respiratory distress Circulatory: RRR, extremities well perfused Abdomen: Non-distended, mild suprapubic and right lower quadrant tenderness. : Patient is uncircumcised, is no evidence of phimosis or paraphimosis, however with retraction of the foreskin there is some white discharge noted to the glans. There is some mild foreskin edema. There is no scrotal or perineal edema or erythema or tenderness Extremities: Normal ROM, No edema Skin: Warm and dry Neuro: Alert and oriented, no focal deficits Results Labs Reviewed CBC WITH AUTO DIFFERENTIAL - Abnormal Result Value WBC 6.0 RBC 4.40 (*) Hemoglobin 12.5 (*) Hematocrit 36.5 (*) MCV 82.6 MCH 28.3 MCHC 34.2 RDW 12.9 Platelets 155 MPV 11.9 (*) NRBC 0.0 NRBC Absolute 0.00 Neutrophils Relative 51.9 Lymphocytes Relative 36.3 Monocytes Relative 6.0 Eosinophils Relative 3.8 Basophils Relative 1.3 Immature Granulocytes Relative 0.7 Neutrophils Absolute 3.14 Lymphocytes Absolute 2.19 Monocytes Absolute 0.36 Eosinophils Absolute 0.23 Basophils Absolute 0.08 Immature Granulocytes Absolute 0.04 (*) CBC AND DIFFERENTIAL Narrative: The following orders were created for panel order CBC and differential. Procedure Abnormality Status --------- ------ CBC auto differential[[id number]] Abnormal Final result Please view results for these tests on the individual orders. COMPREHENSIVE METABOLIC PANEL URINALYSIS WITH REFLEX MICROSCOPIC AND CULTURE Narrative: The following orders were created for panel order Urinalysis with reflex microscopic and culture. Procedure Abnormality Status --------- ------ Urinalysis with reflex ...[[id number]] Recinos urine culture tube[[id number]] Please view results for these tests on the individual orders. URINALYSIS WITH REFLEX MICROSCOPIC AND CULTURE Abnormal Labs Reviewed CBC WITH AUTO DIFFERENTIAL - Abnormal; Notable for the following components: Result Value RBC 4.40 (*) Hemoglobin 12.5 (*) Hematocrit 36.5 (*) MPV 11.9 (*) Immature Granulocytes Absolute 0.04 (*) All other components within normal limits CT Abdomen Pelvis w Contrast (Results Pending) I have discussed the incidental/abnormal imaging and/or lab abnormalities with the patient and haveinstructed them the need for further evaluation and workup with their primary care doctor. I have provided the patient with a paper copy of the abnormality. The laboratory results, imaging results and other diagnostic exam results were reviewed in the EMR. EKG Interpretation Critical Care Time None Medical Decision Making Medications - No data to display Clinical Impressions as of 01/10/252104 Hyperglycemia Balanoposthitis Patient was evaluated. CBC Chem-[address] scan. CAT scan shows no evidence of acute surgical or infectious process. Patient is complaining of perineal discomfort concerned about a prostate infection but his urinalysis is negative. On examination there is no scrotal or perineal edema erythema or tenderness. Physical exam findings are consistent with a balanoposthitis. Also, serum glucose is 382. Patient will be treated with normal saline and regular insulin. Procedures Procedures Diagnosis No diagnosis found. Disposition Data Unavailable ED Prescriptions None Physician Attestation NOEL Castaneda 01/10/25 1243 NOEL Castaneda 01/10/25 1448 NOEL Castaneda 01/10/252104 Cosigned by Cristian Ramsey MD at 01/11/2025 11:05 AM EST documented in this encounter Plan of Treatment Not on file documented as of this encounter Procedures Procedure Name Priority Date/Time Associated Diagnosis Comments POCT GLUCOSE BLOOD Routine 01/10/2025 4: 24 PM EST POCT GLUCOSE BLOOD Routine 01/10/2025 3: [address] ABDOMEN PELVIS W CONTRAST STAT 01/10/2025 2:09 PM EST URINALYSIS WITH REFLEX MICROSCOPIC AND CULTURE STAT 01/10/2025 12:49 PM EST RECINOS URINE CULTURE TUBE STAT 01/10/2025 12:49 PM EST URINALYSIS WITH REFLEX MICROSCOPIC AND CULTURE STAT 01/10/2025 12:49 PM EST CBC WITH AUTO DIFFERENTIAL STAT 01/10/2025 12:12 PM EST CBC AND DIFFERENTIAL STAT 01/10/2025 12:12 PM EST COMPREHENSIVE METABOLIC PANEL STAT 01/10/2025 12:12 PM EST documented in this encounter Results * (ABNORMAL) POCT Glucose, blood (01/10/2025 4:24 PM EST) Glucose POCT 173(H) 70 - 100 mg/dL 01/10/2025 4:[address] [facility] Blood Capillary blood specimen / Unknown 01/10/2025 4:24 PM EST 01/10/2025 4:26 PM EST Cristian Ramsey MD LAB POINT OF CARE T EST DOCKED DEVICE UNSOLICITED RESULTS Final Result [facility] [address] [place] [address], [place] [phone] * (ABNORMAL) POCT Glucose, blood (01/10/2025 3:38 PM EST) Glucose POCT 161(H) 70 - 100 mg/dL 01/10/2025 3:[address] [facility] Blood Capillary blood specimen / Unknown 01/10/2025 3:38 PM EST 01/10/2025 3:40 PM EST Cristian Ramsey MD LAB POINT OF CARE T EST DOCKED DEVICE UNSOLICITED RESULTS Final Result [facility] [address] [place] [address], [place] [phone] * CT Abdomen Pelvis w Contrast (01/10/2025 [...] Signed Date: 01/10/2025 14:28 ET Workstation ID: [id number] Transcribed By: Self Edit Transcribed Date: 01/10/2025 [...] Signed Date: 01/10/2025 14:28 ET Workstation ID: [id number] Transcribed By: Self Edit Transcribed Date: 01/10/2025 14:20 ET [facility] IMG CT PROCEDURES Final Resu lt * Recinos urine culture tube (01/10/2025 12:49 PM EST) Pathologist [facility] Extra Tube Hold for add-ons. 01/10/2025 2:[address] [facility] Comment:Auto resulted. Urine Urine specimen obtained by clean catch procedure / Unknown Non-blood Collection / Unknown 01/10/2025 12:49 PM EST 01/10/2025 12:57 PM EST [facility] URINE ORDERABLES Final R esult [facility] [address] [place] [address], [place] [phone] * (ABNORMAL) Urinalysis with reflex microscopic and culture (01/10/2025 12:49 PM EST) [facility] Specific [place] Urine 1.025 1.003 - 1.030 LAB URINALYSIS - AUTOMATED METHOD 01/10/2025 1:11 PM [facility] pH, Urine 5.5 5.0 - 8.0 pH LAB URINALYSIS - AUTOMATED METHOD 01/10/2025 1:11 PM [facility] Leukocytes, Urine Negative Negative LAB URINALYSIS - AUTOMATED METHOD 01/10/2025 1:[address] [facility] Nitrite, Urine Negative Negative LAB URINALYSIS - AUTOMATED METHOD 01/10/2025 1:11 PM [facility] Protein, Urine Negative <=Trace mg/dL LAB URINALYSIS - AUTOMATED METHOD 01/10/2025 1:11 PM [facility] Glucose, Urine >=1000(A) Negative mg/dL LAB URINALYSIS - AUTOMATED METHOD 01/10/2025 1:11 PM [facility] Ketones, Urine Negative Negative mg/dL LAB URINALYSIS - AUTOMATED METHOD 01/10/2025 1:11 PM [facility] Urobilinogen , Urine 0.2 0.2 - 1.0 mg/dL LAB URINALYSIS - AUTOMATED METHOD 01/10/2025 1:11 PM [facility] Bilirubin, Urine Negative Negative LAB URINALYSIS - AUTOMATED METHOD 01/10/2025 1:11 PM [facility] Blood, Urine Negative Negative LAB URINALYSIS - AUTOMATED METHOD 01/10/2025 1:11 PM [facility] Urine Urine specimen obtained by clean catch procedure / Unknown Non-blood Collection / Unknown 01/10/2025 12:49 PM EST 01/10/2025 12:57 PM EST us [facility] URINE ORDERABLES Final R esult [facility] [address] [place] [address], * (ABNORMAL) CBC auto differential (01/10/2025 12:12 PM EST) WBC 6.0 4.8 - 10.8 K/mcL LAB HEMETOLOGY METHOD 01/10/2025 12:34 PM [facility] RBC 4.40(L) 4.50 - 5.50 M/[facility] LAB HEMETOLOGY METHOD 01/10/2025 12:34 PM [facility] Hemoglobin 12.5(L) 13.5 - 17.5 g/dL LAB HEMETOLOGY METHOD 01/10/2025 12:34 PM [facility] Hematocrit 36.5(L) 42.0 - 54.0 % LAB HEMETOLOGY METHOD 01/10/2025 12:34 PM [facility] MCV 82.6 79.0 - 98.0 FL LAB HEMETOLOGY METHOD 01/10/2025 12:34 PM [facility] MCH 28.3 27.0 - 32.0 pcg LAB HEMETOLOGY METHOD 01/10/2025 12:34 PM [facility] MCHC 34.2 32.0 - 37.0 g/dL LAB HEMETOLOGY METHOD 01/10/2025 12:34 PM [facility] RDW 12.9 11.0 - 15.0 % LAB HEMETOLOGY METHOD 01/10/2025 12:34 PM [facility] Platelets 155 130 - 400 K/mcL LAB HEMETOLOGY METHOD 01/10/2025 12:34 PM [facility] MPV 11.9(H) 7.0 - 11.0 FL LAB HEMETOLOGY METHOD 01/10/2025 12:34 PM [facility] NRBC 0.0 <1.0 % LAB HEMETOLOGY METHOD 01/10/2025 12:34 PM [facility] NRBC Absolute 0.00 <0.10 K/mcL LAB HEMETOLOGY METHOD 01/10/2025 12:34 PM [facility] Neutrophils Relative 51.9 % LAB HEMETOLOGY METHOD 01/10/2025 12:34 PM [facility] Lymphocytes Relative 36.3 % LAB HEMETOLOGY METHOD 01/10/2025 12:34 PM [facility] Monocytes Relative 6.0 % LAB HEMETOLOGY METHOD 01/10/2025 12:[address] [facility] Eosinophils Relative 3.8 % LAB HEMETOLOGY METHOD 01/10/2025 12:34 PM [facility] Basophils Relative 1.3 % LAB HEMETOLOGY METHOD 01/10/2025 12:34 PM [facility] Immature Granulocytes Relative 0.7 % LAB HEMETOLOGY METHOD 01/10/2025 12:34 PM [facility] Neutrophils Absolute 3.14 1.50 - 7.00 K/mcL LAB HEMETOLOGY METHOD 01/10/2025 12:34 PM [facility] Lymphocytes Absolute 2.19 1.00 - 5.00 K/mcL LAB HEMETOLOGY METHOD 01/10/2025 12:34 PM [facility] Monocytes Absolute 0.36 0.20 - 1.00 K/mcL LAB HEMETOLOGY METHOD 01/10/2025 12:[address] [facility] Eosinophils Absolute 0.23 0.00 - 0.50 K/mcL LAB HEMETOLOGY METHOD 01/10/2025 12:34 PM [facility] Basophils Absolute 0.08 0.00 - 0.20 K/mcL LAB HEMETOLOGY METHOD 01/10/2025 12:34 PM [facility] Immature Granulocytes Absolute 0.04(H) 0.00 - 0.03 K/mcL LAB HEMETOLOGY METHOD 01/10/2025 12:34 PM [facility] Blood Venous blood specimen / Unknown Venipuncture / Unknown 01/10/2025 12:12 PM EST 01/10/2025 12:16 PM EST us [facility] BLOOD ORDERABLES Final R esult [facility] [address] [place] [address], * (ABNORMAL) Comprehensive metabolic panel (01/10/2025 12:12 PM EST) Sodium 135 133 - 145 mmol/L LAB CHEMISTRY METHOD 01/10/2025 1:05 PM [facility] Potassium 4.1 3.5 - 5.5 mmol/L LAB CHEMISTRY METHOD 01/10/2025 1:05 PM [facility] Chloride 105 96 - 110 mmol/L LAB CHEMISTRY METHOD 01/10/2025 1:05 PM [facility] CO2 24 21 - 32 mmol/L LAB CHEMISTRY METHOD 01/10/2025 1:05 PM [facility] Anion Gap 6 3 - 11 LAB CHEMISTRY METHOD 01/10/2025 1:05 PM [facility] Glucose 382(H) 70 - 100 mg/dL LAB CHEMISTRY METHOD 01/10/2025 1:05 PM [facility] BUN 14 5 - 25 mg/dL LAB CHEMISTRY METHOD 01/10/2025 1:05 PM [facility] Creatinine 1.19 0.70 - 1.30 mg/dL LAB CHEMISTRY METHOD 01/10/2025 1:05 PM [facility] eGFR 69 >=60 mL/min/1. 73m2 LAB CHEMISTRY METHOD 01/10/2025 1:05 PM [facility] Comment:Calculation based on the??Chronic Kidney Disease Epidemiology Collaboration (CKD-EPI) equation refit??without adjustment for race. BUN/Creatinine Ratio 11.8 LAB CHEMISTRY METHOD 01/10/2025 1:05 PM [facility] Calcium 8.7 8.5 - 10.5 mg/dL LAB CHEMISTRY METHOD 01/10/2025 1:05 PM [facility] AST (SGOT) 13 10 - 42 unit/L LAB CHEMISTRY METHOD 01/10/2025 1:05 PM [facility] ALT (SGPT) 33 10 - 60 unit/L LAB CHEMISTRY METHOD 01/10/2025 1:[address] [facility] Alkaline Phosphatase 151(H) 42 - 121 unit/L LAB CHEMISTRY METHOD 01/10/2025 1:[address] [facility] Total Protein 7.1 6.0 - 8.0 g/dL LAB CHEMISTRY METHOD 01/10/2025 1:[address] [facility] Albumin 3.9 3.2 - 5.0 g/dL LAB CHEMISTRY METHOD 01/10/2025 1:[address] [facility] Total Bilirubin 0.7 0.0 - 1.4 mg/dL LAB CHEMISTRY METHOD 01/10/2025 1:05 PM [facility] Blood Venous blood specimen / Unknown Venipuncture / Unknown 01/10/2025 12:12 PM EST 01/10/2025 12:16 PM EST [facility] BLOOD ORDERABLES Final R esult [facility] [address] [place] [address], documented in this encounter Visit Diagnoses Diagnosis Hyperglycemia- Primary Other abnormal glucose Balanoposthitis documented in this encounter Administered Medications Inactive Administered Medications - up to 3 most recent administrations Medication Order MAR Action Action Date Dose Rate Site insulin regular (HumuLIN R) injection 10 Units 10 Units, intravenous, Once, On 01/10/25 at 1448, For 1 dose, ONLY use an IV INSULIN SYRINGE with graduations in UNITS to draw up and administer each dose. Given 01/10/2025 3:08 PM EST 10 Units iopamidoL (ISOVUE-370) 370 mg iodine /mL (76 %) injection 90 mL 90 mL, intravenous, Once in imaging, Starting on 01/10/25 at 1404, For 1 dose Given 01/10/2025 2:05 PM EST 90 mL sodium chloride 0.9 % bolus 1,000 mL 1,000 mL, intravenous, at 1,000 mL/hr, Administer over 1 Hours, Once, On 01/10/25 at 1448, For 1 dose New Bag 01/10/2025 3:08 PM EST 1,000 mL 100 0 mL/hr sodium chloride 0.9 % flush 10 mL 10 mL, intravenous, Once, On 01/10/25 at 1406, For 1 dose Given 01/10/2025 2:05 PM EST 10 mL documented in this encounter Active and Recently Administered Medications Times are shown in EST. Scheduled Medication Order 01/08/2025 01/09/2025 01/10/2025 insulin regular (HumuLIN R) injection 10 Units (COMPLETED) 10 Units, intravenous, Once, On 01/10/25 at 1448, For 1 dose, ONLY use an IV INSULIN SYRINGE with graduations in UNITS to draw up and administer each dose. 1508 (Given - Provid er: Mirlande Dorantes RN) iopamidoL (ISOVUE-370) 370 mg iodine /mL (76 %) injection 90 mL (COMPLETED) 90 mL, intravenous, Once in imaging, Starting on 01/10/25 at 1404, For 1 dose 1405 (Given - Provid er: Susanne Curry) sodium chloride 0.9 % bolus 1,000 mL (COMPLETED) 1,000 mL, intravenous, at 1,000 mL/hr, Administer over 1 Hours, Once, On 01/10/25 at 1448, For 1 dose 1508 (New Bag - Prov ider: Mirlande Dorantes RN)[id number] (Stopped - Provider: Mirlande Doratnes RN) sodium chloride 0.9 % flush 10 mL (COMPLETED) 10 mL, intravenous, Once, On 01/10/25 at 1406, For 1 dose 1405 (Given - Provid er: Susanne Curry) documented in this encounter Care Teams Guard Lieutenant Relationship Specialty Start Date End Date Cesilia Alston NP [address] [place] [phone] PCP - General 10/03/24 documented as of this encounter
--- OUTSIDE RECORDS SUMMARY | 2025-01-13 16:39 | XMS_ITS | Encounter Summary ---
Author Organization [employer] Address [address] [facility] [address] [place] [address] Care Team Providers Care Budget Record Clerk Name Role Phone Cesilia Alston FAISAL Primary Care Provider [phone] Reason for Visit * Reason Comments Med Refill Encounter Details Date Type Department Care Team ([facility] st Contact Info) Description 07/25/2024 Refill [facility] MED & PEDS [address] [place], [place] [id number] Ryann Watson MD [address] [place] [address] Social History Tobacco Use Types Packs/Day Years [...] Description 01/27/2025 1:00 PM EST Office Visit [facility] MEDICINE [address] [place] [address] Cesilia Alston ANP [address] [place] [address] documented as of this encounter Goals Goal Patient Goal Type Associated Problems Recent Progress Patient-Stated? Author Take your medication every day Lifestyle No Shannan Rjoas, PharmD documented as of this encounter Visit Diagnoses Not on filedocumented in this encounter Care Teams Budget Record Clerk Relationship Specialty Start Date End Date Cesilia Alston ANP [address] [place] [id number] PCP - General Family Medicine 10/24/23 documented as of this encounter
--- OUTSIDE RECORDS SUMMARY | 2025-01-13 16:39 | XMS_ITS | Encounter Summary ---
Author Organization [facility] Address [address] [place] [address] Care Team Providers Care Survey Project Manager Name Role Phone Cesilia Alston NP Primary Care Provider [phone] Reason for Referral * Imaging (Routine) - Closed Specialty Diagnoses / Procedures Referred By Saray momin Referred To Contact Radiology Diagnoses Thyroid nodule Procedures US Bx Ndl Thyroid Perc Cesilia Alston NP [address] [address] Phone: tel: [facility] Referral ID Status Reason Start Date Expiration Date Visits Re quested Visits Authorized [id number] Closed 12/30/2024 12/30/2025 1 1 Reason for Visit * Imaging (Routine) - Closed Specialty Diagnoses / Procedures Referred By Saray momin Referred To Contact Radiology Diagnoses Thyroid nodule Procedures US Bx Ndl Thyroid Perc Cesilia Alston NP [address] [address] Phone: tel: [facility] Referral ID Status Reason Start Date Expiration Date Visits Re quested Visits Authorized [id number] Closed 12/30/2024 12/30/2025 1 1 Encounter Details Date Type Department Care Team (Latest Contact Info) Description 01/05/2025 1:07 PM EST - 01/05/2025 11:59 PM EST Hospital Encounter [facility] Ultrasound [address] [place] [address] Thyroid nodule Discharge Disposition: Home or Self Care Social [...] 10/03/2024 3:24 PM Farrukh Burns RN * Are you blind or do [...] Procedure Name Priority Date/Time Associated Diagnosis Comments US BX NDL THYROID PERC Routine 01/05/2025 2:28 PM EST Thyroid nodule FINE NEEDLE ASPIRATION Routine 01/05/2025 1:44 PM EST Thyroid nodule documented in this encounter Results * US Bx Ndl Thyroid Perc (01/05/2025 [...] Signed Date: 01/05/2025 15:20 ET Workstation ID: [id number] Transcribed By: Self Edit Transcribed Date: 01/05/2025 15:06 ET Resident/PA/VENEER JOINTER OFFBEARER: Su Morgan Procedure Note Rl Keys MD [...] Signed Date: 01/05/2025 15:20 ET Workstation ID: [id number] Transcribed By: Self Edit Transcribed Date: 01/05/2025 15:06 ET Resident/PA/VENEER JOINTER OFFBEARER: Su Morgan us Cesilia Alston NP IMG US PROCEDURES Final Result * Fine needle aspiration (01/05/2025 1:44 PM EST) Final Diagnosis A. Left thyroid, fine needle aspiration (ThinPrep, direct smears): Benign (Tiller Category II) Consistent with follicular nodular disease (includes adenomatoid nodule, colloid nodule, etc.) 01/06/2025 2:[address] [facility] Specimen A Adequacy Satisfactory for evaluation 01/06/2025 2:[address] [facility] Comment:This is an appended report. These results have been appended to a previously preliminary verified report. Gross Description A. Thyroid, left thyroid nodule: Received in Cytolyt 30 ml of pink fluid; 1 ThinPrep 3 passes 6 direct smears (3 air-dried and 3 alcohol fixed) 01/06/2025 2:[address] [facility] Intraoperative Consultation A. Thyroid, left thyroid nodule: Predominantly benign hemorrhagic cyst contents. Insufficient follicular epithelium in preliminary review. Tiffanie Tompkins MD 01/05/25 14:45 01/06/2025 2:[address] [facility] Disclaimer Unless otherwise specified, all tissue is 10% NB formalin fixed and paraffin embedded. Technical cytopathology services provided by [facility], at [address] [place] [address] (CLIA # [id number]/Froylan Wheatley MD, Building Code Administrator.) 01/06/2025 2:44 PM EST [facility] Fine Needle Aspirate Thyroid structure / Unknown 01/05/2025 1:44 PM EST 01/05/2025 2:36 PM EST us [facility] PATHOLOGY ORDERABLES Final R esult [facility] [address] [place] [address], documented in this encounter Visit Diagnoses Diagnosis Thyroid nodule Nontoxic uninodular goiter documented in this encounter Administered Medications Inactive Administered Medications - up to 3 most recent administrations Medication Order MAR Action Action Date Dose Rate Site lidocaine (XYLOCAINE) 1 % injection 10 mL 10 mL, injection, Once in imaging, Starting on 01/05/25 at 1428, For 1 dose Given 01/05/2025 2:28 PM EST 10 mL Other documented in this encounter Orders Medications Ordered That Munir ht Not Have Been Administered Count Last Ordered Date First Ordered Date lidocaine (XYLOCAINE) 1 % injection 10 mL 1 01/05/2025 documented in this encounter Care Teams Survey Project Manager Relationship Specialty Start Date End Date Cesilia Alston NP [address] [place] [phone] PCP - General 10/03/24 documented as of this encounter
--- OUTSIDE RECORDS SUMMARY | 2025-01-13 16:39 | XMS_ITS | Encounter Summary ---
Author Organization [employer] Address [address] [facility] [address] [place] [address] Care Team Providers Care Special Needs Caregiver Name Role Phone Ritika Marsh MD Primary Care Pro vider Cesilia Alston Primary Care Provider Reason for Visit * Reason Onset Date Comments Medication Question 10/23/2023 Encounter Details Date Type Department Care Team ([facility] st Contact Info) Description 10/23/2023 Telephone [facility] [address] [place], [place] [phone] Ritika Marsh MD [address] [place], [place] [phone] Medication Question Social History Tobacco Use Types Packs/Day Years Used Date Smoking Tobacco: Never Assessed Housing Stability Answer Date Recorded What is your housing situation today? I do not have housing (Staying with others, in a hotel, in a halfway, living outside on the street, on a [...] encounter Miscellaneous Notes * Telephone Encounter - FAISAL Hayden - 11/15/2023 10:00 AM EST Noted, updated meds as requests, pt has TP early Nov w/ me will discuss plan. * Telephone Encounter - Lana Brown RN - 10/26/2023 2:26 PM EST Telephone call returned to [place] RUBIN regarding below message. He has several concerns. His main concern is that pt is very noncompliant, specifically with his DM meds. He states he has been pt's VNAfor many years, he cares about him, he greatly believes pt needs his help, and wants to continue enrrique his VNA. However, if pt's health insurance continue to see that pt is noncompliant and not accepting VNA's help, they will be forced to discharge him. States they already made them cut down from daily to 3x/week. [facility] wants to let PCP know this. Also, pt told him that he was recently at the EDfor BG >400. He states this is because pt refuses insulin most days. Also concerned about polypharmacy. States pt uses around 5 pharmacies that he has counted. Pt does not have transportation, VNAtries to curing pickling packer scripts but sometimes can't find where they were sent to. I notice trulicity and lantus both sent 10/20 were [facility] He states spoke to pt regarding this and is requesting we change pt's main pharmacy [facility] [place] as it is 5 minutes from pt's home. Will update pt's chart to reflect this. He is also wondering if lantus can be sent as a pen. States pt's eye sight isn't good and he is concerned with him drawing up his own insulin on days he isn't there. Lastly, he is requesting a med list be faxed to [phone]. Will fax. * Telephone Encounter - Roly Satnam - 10/23/2023 11:49 AM EST Tc from Scott from [facility] requesting a call back from nurse in regards to insulin. Please contact at [phone] documented in this encounter Plan of Treatment Upcoming Encounters Date Type Department Care Team (Late st Contact Info) Description 01/27/2025 1:00 PM EST Office Visit [facility] [address] [place] [address] [phone] Cesilia Alston ANP [address] [place] [phone] documented as of this encounter Visit Diagnoses Not on filedocumented in this encounter Care Teams Special Needs Caregiver Relationship Specialty Start Date End Date Ritika Marsh MD [address] [place] [phone] PCP - General Internal Medicine 06/01/23 10/23/23 Cesilia Alston ANP [address] [place] [phone] PCP - General Family Medicine 10/24/23 documented as of this encounter
--- OUTSIDE RECORDS SUMMARY | 2025-01-13 16:39 | XMS_ITS | Encounter Summary ---
Author Organization [employer] Address [address] [facility] [address] [place] [address] Care Team Providers Care Conventions Assistant Name Role Phone Cesilia Alston Primary Care Provider [phone] Reason for Visit * Reason Onset Date Comments Nurse Triage 12/16/2024 Encounter Details Date Type Department Care Team (Late st Contact Info) Description 12/16/2024 Telephone [facility] [address] [place], [place] [phone] Cesilia Alston ANP [address] [place], [place] [phone] Nurse Triage Social History Tobacco Use Types Packs/Day Years Used Date Smoking Tobacco: Every Day Cigarettes Passive Smoke Exposure: Current Smokeless Tobacco: Never Comments:Smoked < 1/2 PPD bu t unk if continues Depression Answer Date Recorded Patient Health Questionnaire-9 Score 0 10/21/2024 Patient Health Questionnaire-9 Score 0 10/21/2024 Last PHQ-9: Questionnaire Data Not on file 1 12/21/2023 Housing Stability Answer Date Recorded What is [...] off services in your home? No 09/11/2023 Depression Answer Date Recorded Patient Health Questionnaire-2 Score 0 10/21/2024 Sex and Gender Information Value Date Recorded Sex Assigned at Male 09/25/2022 10:17 AM EDT Legal Sex Male 10:17 AM EDT Gender Identity Male 09/25/2022 10:17 AM EDT Sexual Orientation Don't know 09/25/2022 10 :17 AM EDT documented as of this encounter Miscellaneous Notes * Telephone Encounter - Irasema Ochoa RN - 12/16/2024 10:11 AM EST Images from the original note were not included. Call returned to Dick Rosales to triage below. Reports having cough x 2 days. Cough is productive.Pt using both inhaler and nebulizer Q4H. Pt did perform home kit for COVID-19 and negative 3 days ago. Pt does endorse sick contacts. Denies any ST, ear pain, congestion, HATCH or runny nose. Reports having subjective fever 5 days ago, having cold sweats. Denies any nausea, vomiting or diarrhea. Pt adv ised of disposition agrees to sick onsite with PCP for exam. Protocol Used: Cough (Adult) Protocol-Based Disposition: Go to Office or Video Visit Now Future Appointments Date Time Provider Department Center 12/16/2024 1:00 PM FAISAL Hayden MEDICINE [facility] 01/27/2025 1:00 PM FAISAL Hayden MEDICINE [facility] Insurance verified as active per Real Time Eligibility in [facility]. Video visit offer not recorded Positive Triage Question: * Wheezing is present * All higher-acuity triage questions were negative Care Advice Discussed: * Reassurance and Education - Cough * Reasons To Call Back - You become worse * Telephone Encounter - Irasema Ochoa RN - 12/16/2024 9:27 AM EST Call returned to Dick Rosales for triage below. No answer LVM to return call to [facility] triage line [phone]. * Telephone Encounter - Kaylene Wigginseduin Coyle - 12/16/2024 8:39 AM EST Symptom: Cough Outcome: Talk to a nurse or provider within 15 minutes Reason: Any trouble breathing through the mouth The caller accepted this outcome. [phone] documented in this encounter Plan of Treatment Upcoming Encounters Date Type Department Care Team (Late st Contact Info) Description 01/27/2025 1:00 PM EST Office Visit [facility] [address] [place], [place] [phone] Cesilia Alston ANP [address] [place] [address] documented as of this encounter Goals Goal Patient Goal Type Associated Problems Recent Progress Patient-Stated? Author Take your medication every day Lifestyle Shannan Fiore, PharmD documented as of this encounter Visit Diagnoses Not on filedocumented in this encounter Additional Health Concerns Assessment Noted Time PHQ-9 Depression Total Score: 0 10/21/20 24 10:30 AM EST documented as of this encounter Care Teams Conventions Assistant Relationship Specialty Start Date End Date Cesilia Alston ANP [address] [place] [phone] PCP - General Family Medicine 10/24/23 documented as of this encounter
--- OUTSIDE RECORDS SUMMARY | 2025-01-13 16:40 | XMS_ITS | Encounter Summary ---
Author Organization [employer] Address [address] [place] [address] [address] [place] [address] Care Team Providers Care Stove Tender Name Role Phone Cesilia Alston FAISAL Primary Care Provider [phone] Reason for Referral * Consultation (Urgent) - Pending Review Specialty Diagnoses / Procedures Referred By Contvic momin Referred To Contact Urology Diagnoses Pelvic pain Dysuria Yossi Mauricio MD [address] [place] [address] Phone: tel: fax: Referral ID Status Reason Start Date Expiration Date Visits Requested Visits Authorized [id number] Pending Review Specialty Services Required 01/13/2025 01/13/2026 1 1 Reason for Visit * Reason Comments prostate pain Encounter Details Date Type Department Care Team (Late st Contact Info) Description 01/13/2025 9:40 AM EST Office Visit [facility] [address] [place] [phone] Yossi Mauricio MD [address] [place] [address] [phone] Pelvic pain (Primary Dx); Dysuria Social History Tobacco Use Types Packs/Day Years Used Date Smoking Tobacco: Former Cigarettes Q uit: 12/13/2024 Passive Smoke Exposure: Current Smokeless Tobacco: Never Tobacco Cessation:Counseling Given: Not Answered Comments:Smoked < 1/2 PPD but unk if continues Depression Answer Date Recorded [...] AM EDT documented as of this encounter Last Filed Vital Signs Vital Sign Reading Time Taken Comments Blood Pressure 132/74 01/13/2025 9:31 AM EST Pulse 97 01/13/2025 9:31 AM EST Temperature 36.6 ??C (97.9 ??F) 01/13/2025 9:31 AM ES T Respiratory Rate 17 01/13/2025 9:31 AM EST Oxygen Saturation 98% 01/13/2025 9:31 AM EST Inhaled Oxygen Concentration - - Weight 109 kg (240 lb) 01/13/2025 9:31 AM EST Height - - Body Mass Index 32.55 07/18/2024 8:54 AM EDT documented in this encounter Progress Notes * Yossi Mauricio MD - 01/13/2025 9:40 AM EST Subjective Patient ID: Dick Rosales is a 64 y.o. male. HPI Dick was seen in [facility] ED 3 days ago for dysuria, frequency, and perineal pain that started 2 days prior. States that it felt similar to prior prostate infection. WBC= 6.0. CMP was normal except for alk ftpc=341, random BG+ 382, given insulin 10 units IV in the ED CAT scan with IV contrast shows no evidence of acute surgical or infectious process in the abdomenor pelvis . Diagnosis: Balanitis. Prescribed clotrimazole 1 % cream and Keflex 500 mg, oxycodone. He came to [facility] today because of ongoing pain in the groin , burning on urinary. White material under foreskin is improving with clotrimazole cream States sx are similar to prostate infection he had last year, was referred to urology but never went. Mack fever, chills, flank pain.. Lives in [facility]. Not employed. Former smoker, quit 29 days ago. Last EtOH was 9 months ago. Patient Active Problem List Diagnosis Dyslipidemia Gastroesophageal reflux disease without esophagitis Pain of male genitalia Phimosis Type 2 diabetes mellitus with hyperlipidemia (CMS/HCC) (CMS/HCC) Non compliance w medication regimen Sarcoidosis Neuropathy Foot pain, bilateral Laceration of internal mouth Symptomatic irreversible pulpitis Periodontal disease The following portions of the chart were reviewed this encounter and updated as appropriate: Tobacco Allergies Meds Problems Med Hx Surg Hx Fam Hx Review of Systems Constitutional: Negative for fever. Respiratory: Negative for shortness of breath. Cardiovascular: Negative for chest pain. Gastrointestinal: Positive for abdominal pain. Genitourinary: Positive for dysuria. Negative for flank pain, penile discharge, scrotal swelling and testicular pain. Skin: Negative for rash. Neurological: Negative for headaches. Objective Physical Exam Constitutional: Appearance: Normal appearance. HENT: Nose: Nose normal. Mouth/Throat: Mouth: Mucous membranes are moist. Pharynx: Oropharynx is clear. Eyes: Conjunctiva/sclera: Conjunctivae normal. Pupils: Pupils are equal, round, and reactive to light. Cardiovascular: Rate and Rhythm: Normal rate and regular rhythm. Heart sounds: No murmur heard. Pulmonary: Effort: Pulmonary effort is normal. Breath sounds: Normal breath sounds. Abdominal: General: Abdomen is flat. Palpations: Abdomen is soft. Tenderness: There is abdominal tenderness (mild across lower abd). There is no right CVA tenderness, left CVA tenderness, guarding or rebound. Genitourinary: Prostate: Tender. Comments: Uncircumcised. Retraction of foreskin reveals some white, cheesy material. Musculoskeletal: General: Normal range of motion. Cervical back: No tenderness. Skin: Findings: No rash. Neurological: Mental Status: He is alert. Gait: Gait is intact. Psychiatric: Mood and Affect: Mood normal. Behavior: Behavior normal. Procedures Assessment/Plan Diagnoses and all orders for this visit: Pelvic pain Exam c/w prostatitis. We requested urine C&S results from [facility] ED visit, but are unable to obtain them at this time. We sent urine specimen for C&S, CT/GC now. Advised to continue clotrimazole cream. Stop Keflex. Prescribed Bactrim DS for possible prostatitis. Urgent urology referral sent. Return to ED if not improving. - Culture, Urine, Routine - Referral to Urology; Future Dysuria As abobe. - Culture, Urine, Routine - Chlamydia/N. Gonorrhoeae RNA, TMA, Urogenitial - Referral to Urology; Future Other orders - sulfamethoxazole-trimethoprim (Bactrim DS) 800-160 MG tablet; Take 1 tablet by mouth 2 times daily for 14 days. - acetaminophen (Tylenol) 500 MG tablet; Take 2 tablets (1,000 mg) by mouth every 6 (six) hours if needed for moderate pain or fever for up to 25 doses. documented in this encounter Plan of Treatment Upcoming Encounters Date Type Department Care Team (Late st Contact Info) Description 01/27/2025 1:00 PM EST Office Visit [facility] [address] [place] [phone] Cesilia Alston ANP [address] [place] [address] Scheduled Orders Name Type Priority Associated Diagnoses Orde r Schedule Culture, Urine, Routine Microbiology Routine Pelvic pain Dysuria Ordered: 01/13/2025 Chlamydia/N. Gonorrhoeae RNA, TMA, Urogenitial Microbiology Routine Dysuria Ordered: 01/13/2025 Scheduled Referrals Name Type Priority Associated Diagnoses Orde r Schedule Referral to Urology Outpatient Referral Urgent Pelvic pain Dysuria Expected: 01/13/2025 (Approximate), Expires: 01/13/2026 documented as of this encounter Goals Goal Patient Goal Type Associated Problems Recent Progress Patient-Stated? Author Take your medication every day Lifestyle No Shannan Rojas, PharmD documented as of this encounter Visit Diagnoses Diagnosis Pelvic pain- Primary Dysuria documented in this encounter Additional Health Concerns Assessment Noted Time PHQ-9 Depression Total Score: 0 10/21/20 24 10:30 AM EST documented as of this encounter Care Teams Stove Tender Relationship Specialty Start Date End Date Cesilia Alston ANP [address] [place] [address] PCP - General Family Medicine 10/24/23 documented as of this encounter
--- OUTSIDE RECORDS SUMMARY | 2025-01-13 16:40 | XMS_ITS | Encounter Summary ---
Author Organization [employer] Address [address] [facility] [address]t [place] [address] Care Team Providers Care Hinging Machine Operator Name Role Phone Gamaliel Cesilia MALONE Primary Care Provider [phone] Reason for Visit * Reason Onset Date Comments Results 12/18/2024 Encounter Details Date Type Department Care Team ([facility] st Contact Info) Description 12/18/2024 Telephone [facility] [address] [place] [address] Susanne Francisco RN Results Social History Tobacco Use Types Packs/Day Years [...] encounter Miscellaneous Notes * Telephone Encounter - Susanne Francisco RN - 12/18/2024 9:59 AM EST Telephone call to pt to advise that xray did not show pneumonia, reminded pt to take antibiotics asprescribed and finish full course. Reviewed importance of using Trelegy inhaler from Dr Hay and albuterol nebulizer Q4-6 hr PRN. Pt reports feeling better, said he got a good nights sleep and that he quit smoking last night and wants to take his health seriously. Advised pt to call [facility] if symptoms do not improve, pt verbalized understanding, no further questions. * Telephone Encounter - Susanne Francisco RN - 12/18/2024 9:55 AM EST ----- Message from Cesilia Alston sent at 12/17/2024 4:12 PM EST ----- Please let patient know that his x-ray did not show pneumonia. Do recommend that he take antibiotics as prescribed as well as the Trelegy inhaler prescribed by Dr. Hay. Should be using albuterol via pump or nebulizer every 4-6 hours as needed for shortness of breath or wheezing. Call us if hedoes not continue to improve. documented in this encounter Plan of Treatment Upcoming Encounters Date Type Department Care Team (Late st Contact Info) Description 01/27/2025 1:00 PM EST Office Visit [facility] [address] [place] [address] Cesilia Alston ANP [address] [place] [address] documented as of this encounter Goals Goal Patient Goal Type Associated Problems Recent Progress Patient-Stated? Author Take your medication every day Lifestyle No Shannan Rojas, PharmD documented as of this encounter Visit Diagnoses Not on filedocumented in this encounter Additional Health Concerns Assessment Noted Time PHQ-9 Depression Total Score: 0 10/21/20 24 10:30 AM EST documented as of this encounter Care Teams Hinging Machine Operator Relationship Specialty Start Date End Date Cesilia Alston ANP [address] [place] [phone] PCP - General Family Medicine 10/24/23 documented as of this encounter
--- OUTSIDE RECORDS SUMMARY | 2025-01-13 16:40 | XMS_ITS | Clinical Summary ---
Author Organization [employer] Address [address] [facility] 7[address] [place] [address] Care Team Providers Care Landscape Engineer Name Role Phone Cesilia Alston FAISAL Primary Care Provider [phone] Allergies No known active allergies Medications * This document contains information received from the source organization and may not represent a complete record from that organization. gabapentin (Neurontin) 800 MG tabletIndication s:Neuropathy TAKE 1 TABLET BY MOUTH UP TO THREE TIMES DAILY 90 tablet 3 023 Active albuterol (2.5 MG/3ML) 0.083% nebulizer solution INHALE 2.5 MG (3 ML) EVERY 4 HOURS NEEDED FOR SHORTNESS OF BREATH OR FOR WHEEZE 023 Active albuterol 108 (90 Base) MCG/ACT inhaler INHALE 2 PUFFS BY MOUTH EVERY 4 HOURS NEEDED FOR BRONCHOSPASM 023 Active DULoxetine (Cymbalta) [address] capsule TAKE 1 CAPSULE BY MOUTH TWICE A DAY 023 Active prazosin (Minipress) 5 MG capsule 1 in the morning, 2 at night 024 Active QUEtiapine (SEROquel) 200 MG tablet TAKE 1 TABLET BY MOUTH EVERYDAY AT BEDTIME 023 Active QUEtiapine (SEROquel) 50 MG tablet TAKE 1 TABLET BY MOUTH TWICE A DAY NEEDED 023 Active triamcinolone (Kenalog) 0.1 % cream Apply topically if needed in the morning and at bedtime (pain and swelling). 30 g 2 024 Active FREESTYLE LITE test stripIndications :Type 2 diabetes mellitus with hyperlipidemia (CMS/HCC) (CMS/HCC) Use to check blood sugar TID or more as needed 100 each 11 024 Active atorvastatin (Lipitor) 80 MG tabletIndication s:Type 2 diabetes mellitus with hyperlipidemia (CMS/HCC) ([facility]) Take 1 tablet (80 mg) by mouth at bedtime. 30 tablet 11 024 2024 Active gabapentin (Neurontin) 300 MG capsuleIndicatio ns:Diabetic polyneuropathy associated with type 2 diabetes mellitus ([facility]) Take 1 capsule at bedtime with 800mg tablet 30 capsule 11 Active aspirin 81 MG EC tabletIndication s:Type 2 diabetes mellitus with hyperlipidemia (CMS/HCC) ([facility]) Take 1 tablet (81 mg) by mouth Once per day. 90 tablet 3 024 2024 Active Continuous Glucose Dairy Equipment Mechanic (FreeStyle Corry 2 [place]) deviceIndication s:Type 2 diabetes mellitus with hyperlipidemia ([facility]/HCC) ([facility]) Use as directed to monitor glucose ever 8 hours. 1 each Active Continuous Glucose Sensor (FreeStyle Corry 2 Sensor) miscIndications: Type 2 diabetes mellitus with hyperlipidemia ([facility]/HCC) ([facility]) Use as directed to monitor glucose ever 8 hours. Replace sensor every 14 days. 2 each Active glucose blood (FreeStyle Precision Jim Test) test strip Test blood sugar q 8 hours 100 each 12 Active ARIPiprazole (Abilify) 5 MG tablet Active busPIRone (Buspar) 10 MG tablet Active clonazePAM (KlonoPIN) 0.5 MG disintegrating tablet Active chlorhexidine (Peridex) 0.12 % solution Swish 15 mL morning and night for 1 minute. Spit, do not swallow. Do not eat or drink for 30 minutes following use. 473 mL Active insulin glargine (Lantus SoloStar) 100 UNIT/ML penIndications:T ype 2 diabetes mellitus with hyperlipidemia ([facility]/HCC) ([facility]) Inject 30 Units under the skin Once daily. 30 mL 2 024 2024 Active meloxicam (Mobic) 7.5 MG tabletIndication s:Neuropathy Take 1 tab once or twice daily if needed for pain 30 tablet 2 Active clotrimazole (Antifungal, Clotrimazole,) 1 % creamIndications :Tinea pedis of both feet Apply topically 2 times daily. To feet 60 g Active TRUEplus Lancets 33G miscIndications: Type 2 diabetes mellitus with hyperlipidemia (CMS/HCC) ([facility]) Use TID or more as needed to check BG 100 each 11 Active pen needle 31G x 5 mm miscIndications: Type 2 diabetes mellitus with hyperlipidemia (CMS/HCC) ([facility]) Use as instructed with lantus pen 100 each 12 024 2024 Active Trulicity 3 MG/0.5ML solution auto-injectorInd ications:Type 2 diabetes mellitus with hyperlipidemia (CMS/HCC) ([facility]) INJECT 3 MG SUBCUTANEOUSLY ONCE A WEEK 2 mL 2 Active nicotine polacrilex (Nicorette) 4 MG gumIndications:C igarette nicotine dependence without complication Chew 1 piece every 1-2 hours as needed in place of cigarette. 100 each 5 Active nicotine (Nicoderm CQ) 14 MG/24HR patchIndications :Cigarette nicotine dependence without complication Place 1 patch on the skin 1 (one) time each day at the same time. 42 patch 2024 Active Trelegy Ellipta 100-62.5-25 MCG/ACT aerosol powderIndication s:Asthma with acute exacerbation, unspecified asthma severity, unspecified whether persistent Inhale 1 Inhalation Once daily. 28 each 2 Active azithromycin (Zithromax) 250 MG tabletIndication s:COPD exacerbation ([facility]) On day 1 take 2 tablets once, then take 1 tablet once daily days 2 - 5 6 tablet Active sulfamethoxazole -trimethoprim (Bactrim DS) 800-160 MG tablet Take 1 tablet by mouth 2 times daily for 14 days. 28 tablet 2024 Active acetaminophen (Tylenol) 500 MG tablet Take 2 tablets (1,000 mg) by mouth every 6 (six) hours if needed for moderate pain or fever for up to 25 doses. 30 tablet Active Trelegy Ellipta 100-62.5-25 MCG/ACT aerosol powder INHALE 1 PUFF EVERY DAY 023 2024 Discontinued(R eorder (will not trigger notification to Pharmacy)) nicotine (Nicoderm, Step 1) 21 MG/24HR patch Place 1 patch on the skin 1 (one) time each day at the same time. 42 patch 1 024 2024 Discontinued nicotine polacrilex (Nicorette) 4 MG gum Chew 1 each (4 mg) if needed for smoking cessation. Max 20 per day 110 each 5 024 2024 Discontinued benzonatate (Tessalon Perles) 100 MG capsuleIndicatio ns:Acute cough Take 1 capsule (100 mg) by mouth if needed in the morning, at noon, and at bedtime for cough for up to 7 days. Do not crush or chew. 20 capsule 025 2024 Hospital, Clinic, or Other Facility Administered Medication Ordered Dose Route Frequency Start Date End Date Status ipratropium-albutero l (Duo-Neb) 0.5-2.5 mg/3 mL nebulizer solution 3 mLIndications:Asthma with acute exacerbation, unspecified asthma severity, unspecified whether persistent 3 mL NEBULIZATION Once 12/16/2024 12/16/2024 Ended Active Problems Problem Noted Date Diagnosed Date Laceration of internal mouth 10/06/2024 Symptomatic irreversible pulpitis 10/06/2024 Periodontal disease 10/06/2024 Neuropathy 05/23/2024 Assessment & Plan (05/23/2024 9:45 PM EDT): Pt's symptoms are most likely associated w DM neuropathy ,will r/o gout -uric acid ,chem ,CBC -referred today for EMG -advised to take tylenol Q 8 h PRN up to 1 gr -px meloxicam 7.5 mg 1 to 2 tab daily prn for moderate pain -pt already taking gabapentin 800 mg am and pm and 1100 mg in pm +cymbalta 60 mg BID -book coverer seen > 1- 2 years -referred today -may benefit from orthopedic shoes -pt reports f w neurologist -advised to f w specialist as well -pt requesting RW for severe neuropathy-requested today to staff analyst Foot pain, bilateral 05/23/2024 Non compliance w medication regimen 11/15/2023 Sarcoidosis 11/15/2023 Overview (10/21/2024): biopsy proven via mediastinoscopy, follows with Dr. Hay. Last visit 09/15/2024. Due to his history of mood disorders which steroids seem to destabilize, Dr. Hay tries to avoid at this time. Also has asthma COPD overlap and is using Trelegy. Last chest CT spring 2023 demonstrating stable pulmonary nodules. They did show 2 thyroid nodules which I will follow-up on. Pain of male genitalia 10/03/2023 Assessment & Plan (10/03/2023 2:37 PM EST): Likely candidiasis due to diabetes, trial of clotrimazole cream having deep pain under scrotum will check PSA, gonorrhea and chlamydia, does not want digital rectal exam with me but agrees to do it at uroogist for presistant genital pain and phymosis Phimosis 10/03/2023 Dyslipidemia 01/26/2020 09/11/2023 Gastroesophageal reflux disease without esophagi tis 01/26/2020 09/11/2023 Type 2 diabetes mellitus with hyperlipidemia (CM S/HCC) 01/26/2020 09/11/2023 Overview (05/05/2024): W/ neuropathy Lab Results Component Value Date HGBA1C 7.9 (A) 03/25/2024 HGBA1C 6.5 (A) 12/06/2023 On atorvastatin, no ACEi/ARB or ASA Lantus 30 units bedtime Trulicity 0.75mg wkly Gabapentin 800mg TID for neuropathy (plus duloxetine from psych) Foot exam Eye exam PCV20 and Td UTD Assessment & Plan (05/23/2024 9:45 PM EDT): -hb1AC 7.9 02/2024 , home CBGS 300s , never low CBG -today CBG is 282 -increase trulicity from 1.5 to 3 mg --sent to our pharmacy given dose not available at his regular pharmacy , if issues in future w med will need to change to ozempic -px continuous blood glucose monitoring today -f w PCP has apt already for 07/18/2024 Encounters Date Type Department Care Team Description 01/13/2025 9:40 AM EST Office Visit [facility] [address] [place] [phone] Yossi Mauricio MD Pelvic pain (Primary Dx); Dysuria 01/13/[address] [address] Susanne Francisco, KEN 01/12/[address] [address] Cesilia Alston ANP Cigarette nicotine dependence without complication 12/18/[address] [phone] Susanne Francisco RN Results 12/16/2024 1:00 PM EST Office Visit [address] [address] Cesilia Alston ANP Acute cough (Primary Dx); Thyroid nodule greater than or equal to 1.5 cm in diameter incidentally noted on imaging study; Asthma with acute exacerbation, unspecified asthma severity, unspecified whether persistent; COPD exacerbation ([facility]) 12/16/2024 Travel 12/16/[address] [address] Cesilia Alston ANP Cigarette nicotine dependence without complication (Primary Dx) 12/16/[address] [address] Cesilia Alston ANP Nurse Triage 12/05/[address] [address] Cesilia Alston ANP 12/05/[address] [address] Elise Soto [place] January recall 11/24/2024 Refill [facility] [address] [place] [address] Cesilia Alston ANP Type 2 diabetes mellitus with hyperlipidemia (CMS/HCC) (CMS/HCC) 11/11/2024 Refill [facility] [address] [place] [address] Cesilia Alston ANP Type 2 diabetes mellitus with hyperlipidemia (CMS/HCC) ([facility]/HCC) 11/06/2024 Refill [facility] [address] [place] [id number] Cesilia Alston ANP Type 2 diabetes mellitus with hyperlipidemia (CMS/HCC) ([facility]/HCC) 11/03/[address] [address] Cesilia Alston ANP Med Refill 10/21/2024 9:30 AM EST Office Visit [address] [address] Cesilia Alston ANP Type 2 diabetes mellitus with hyperlipidemia (CMS/HCC) ([facility]) (Primary Dx); Sarcoidosis; Neuropathy; Tinea pedis of both feet; Thyroid nodule greater than or equal to 1.5 cm in diameter incidentally noted on imaging study 10/21/2024 Travel 10/20/[address] [address] Cesilia Alston ANP from Last 3 Months Immunizations Name Administration Dates Next Due Moderna Covid-19 Vaccine 12+ 04/28/2021,03/31/20 21 Pneumococcal Conjugate PCV 20 12/06/2023 Pneumococcal Polysaccharide PPSV23 01/08/2013 Tdap 12/24/2023 Zoster, Recombinant 12/24/2023 Social History Tobacco Use Types Packs/Day Years [...] Don't know 09/25/2022 10 :17 AM EDT Last Filed Vital Signs Vital Sign Reading Time Taken Comments Blood Pressure 132/74 01/13/2025 9:31 AM EST Pulse 97 01/13/2025 9:31 AM EST Temperature 36.6 ??C (97.9 ??F) 01/13/2025 9:31 AM ES T Respiratory Rate 17 01/13/2025 9:31 AM EST Oxygen Saturation 98% 01/13/2025 9:31 AM EST Inhaled Oxygen Concentration - - Weight 109 kg (240 lb) 01/13/2025 9:31 AM EST Height 182.9 cm (6') 07/18/2024 8:54 AM EDT Body Mass Index 32.55 07/18/2024 8:54 AM EDT Plan of Treatment Upcoming Encounters Date Type Department Care Team (Late st Contact Info) Description 01/27/2025 1:00 PM EST Office Visit [facility] [address] [place], [place] [phone] Cesilia Alston ANP [address] [place] [address] Health Maintenance Due Date Last Done Comments CT Colonography 1961 Colonoscopy 1961 Colorectal Cancer Screening 1961 Dental X-Ray: Bitewings 1961 FIT DNA/Cologuard 1961 FIT 1961 FOBT 1961 Sigmoidoscopy 1961 Diabetes: Foot Exam 1971 Eye Exam 1971 Alcohol/Substance Use Screening 1973 Hepatitis C Screening 1979 Hepatitis A Vaccines (1 of 2 - Risk 2-dose series) 1980 Dental Prophylaxis 09/25/2009 03/25/2009 Dental Oral Exam 11/04/2009 05/04/2009 Diabetes: Urine Protein Screening 01/25/2021 01/26/2020 RSV Patients and Patients Aged 60 years or older (1 - Risk 60-74 years 1-dose series) 2021 Zoster Vaccines (2 of 2) 02/18/2024 12/24/2023 COVID-19 Vaccine (3 - season) 2024 04/28/2021, 03/31/2021 Influenza Vaccine (#1) 2024 09/16/2010 Lipid Panel 01/15/2025 01/15/2024 SDOH Screening 03/26/2025 03/26/2024 Diabetes: Hemoglobin A1C 04/20/2025 024, 07/18/2024, 03/25/2024, Additional history exists Depression Screening 10/21/2025 10/21/2024, 10/21/20 24 Tobacco Screening 01/13/2026 01/13/2025 Dental X-Ray: Full Mouth 10/07/2027 10/06/2024 DTaP/Tdap/Td Vaccines (2 - Td or Tdap) 12/24/2033 12/24/2023 HIV Screening Completed 01/26/2020 Pneumococcal Vaccine: 50+ Years Completed 12/06/2023, 01/08/2013 HIB Vaccines Aged Out [...] patient's age to complete this topic Meningococcal Vaccine Aged Out No sandra frankie eligible based on patient's age to complete this topic RSV under 20 months Aged Out No longe r eligible based on patient's age to complete this topic Rotavirus Vaccines Aged Out No longer eligible based on patient's age to complete this topic Goals Goal Patient Goal Type Associated Problems Recent Progress Patient-Stated? Author Take your medication every day Lifestyle Shannan Fiore, Chandu Procedures Procedure Name Priority Date/Time Associated Diagnosis Comments POCT COVID-19 AG MEMBRENO ID NOW Routine 12/16/2024 1:00 PM EST Acute cough POCT GLYCATED HEMOGLOBIN, TOTAL Routine 10/21/2024 9:56 AM EST Type 2 diabetes mellitus with hyperlipidemia (CMS/HCC) ([facility]) POCT GLUCOSE Routine 10/21/2024 9:50 AM EST Type 2 diabetes mellitus with hyperlipidemia (CMS/HCC) ([facility]) PANORAMIC RADIOGRAPHIC IMAGE Routine 10/06/2024 1:00 PM EST LIPID PANEL, STANDARD Routine 01/15/2024 12:27 PM EST ZZZ HISTORICAL HIV AB/AG Routine 01/26/2020 11:06 AM EST ZZZ HISTORICAL MICROALBUMIN, RANDOM Routine 01/26/2020 11:05 AM EST PERIODIC ORAL EVALUATION - ESTABLISHED PATIENT Routine 05/04/2009 12:00 AM EDT PROPHYLAXIS - ADULT Routine 03/25/2009 1 2:00 AM EDT from Last 3 Months or Most Recently Relevant to Health Maintenance Results * POCT Rapid Covid-19 MEMBRENO ID NOW (12/16/2024 1:00 PM EST) Swab 12/16/2024 1:00 PM EST us Cesilia [facility] POINT OF CARE TEST ENTER/EDIT OR DERABLES Final Result * (ABNORMAL) POCT HGB A1C (10/21/2024 9:56 AM EST) Hemoglobin A1C 6.6(A) 4.0 - 6.0 % QC Media Lot # [id number] Lot# Expiration Date ,[id number] Blood 10/21/2024 9:56 AM EST Cesilia Alston ANP POINT OF CARE TEST ENTER/EDIT OR DERABLES Final Result * POCT Glucose (10/21/2024 9:50 AM EST) Glucose Blood, POC 179 60 - 200 mg/dL QC Media Lot # [id number] Lot# Expiration Date [id number] Blood Capillary blood specimen / Unknown 10/21/2024 9:50 AM EST Cesilia Alston ANP POINT OF CARE TEST ENTER/EDIT OR DERABLES Final Result * (ABNORMAL) Lipid Panel, Standard (01/15/2024 12:27 PM EST) Triglycerides 212(H) <150 mg/dL [facility] Comment:Desirable Triglyceri de: less than 150 mg/dLBorderline High Triglyceride 150-199 mg/dLHigh Triglyceride: 200-499 mg/dLVery High Triglyceride: greater than or equal to 5OO mg/dL Cholesterol 332(H) <200 mg/dL [facility] Comment:Desirable Cholestero l: less than 200 mg/dLBorderline High Cholesterol: 200-239 mg/dLHigh Cholesterol: greater than 239 mg/dL LDL Cholesterol Calculated 241(H) <100 mg/dL [facility] Comment:Desirable LDL: less than 100 mg/dLNear Optimal/Above Optimal LDL: 110- 129 mg/dLBorderline High LDL: 130-159 mg/dLHigh LDL: 160-189 mg/dLVery High LDL: greater than or equal to 190 mg/dL HDL Cholesterol 49 >40 mg/dL [facility] Comment:Desirable HDL: great er than 40 mg/dL Note: This HDL assay may give artificially low results in patients with liver disease. 01/15/2024 12:2 7 PM EST 01/15/2024 1:09 PM EST Cesilia Alston ANP LAB BLOOD ORDERABLES Final Resul t [facility] [address] [place] [phone] * HIV AB/AG (01/26/2020 11:06 AM EST) HIV AG/AB NONREACTIVE NR [facility] Comment: HIV-1 p24 Ag and/or HIV-1/HIV-2 Ab not detected. ?? A test result that is nonreactive does not exclude the possibility of exposure to or infection with HIV-1 and/or HIV-2. Nonreactive results in this assay for individuals with prior exposure to HIV-1 and/or HIV-2 may be due to antigen and antibody levels that are below the limit of detection of this assay. ?? The [employer] Safety Management Engineer HIV Ag/Ab Combo assay result and supplemental assay results should be interpreted in conjunction with the patient's clinical presentation, history and other laboratory results. ??If the results are inconsistent with clinical evidence, additional testing is suggested to confirm the result. 01/26/2020 11:0 6 AM EST Cy Ruano MD HISTORICAL/NON ORDERABLE LAB S Final Result Performing Organization Address [facility] de Phone Number [facility] [address] * MICROALBUMIN, RANDOM (01/26/2020 11:05 AM EST) CREATININE, RANDOM URINE 97.32 MG/DL [facility] MICALB/CRE RATIO RANDOM URINE 6.1 ug/mg cr [facility] Comment: ?Albumin/Creatinine Ratio Reference Ranges: ? Normal: < 30 ug/mg creatinine ? Microalbuminuria: ??30 - 300 ug/mg creatinine Clinical Albuminuria: ??> 300 ug/mg creatinine MICROALBUMIN, RANDOM URINE 6.0 MG/L [facility] 01/26/2020 11:0 5 AM EST Cy Ruano MD HISTORICAL/NON ORDERABLE LAB S Final Result Performing Organization Address [facility] de Phone Number [facility] [address] from Last 3 Months or Most Recently Relevant to Health Maintenance Insurance [facility] - [facility] Care Teams Landscape Engineer Relationship Specialty Start Date End Date Cesilia Alston ANP [address] [place] [id number] PCP - General Family Medicine 10/24/23
--- OUTSIDE RECORDS SUMMARY | 2025-01-13 16:40 | XMS_ITS | Encounter Summary ---
Author Organization [employer] Address [address] [facility] [address]t [place] [address] Care Team Providers Care Business Initiatives Manager Name Role Phone Cesilia Alston Primary Care Provider Reason for Visit * Reason Comments Med Refill Encounter Details Date Type Department Care Team (Late st Contact Info) Description 01/12/[address] [facility] [address] [place], [place] [phone] Cesilia Alston ANP [address] [place], [place] [phone] Cigarette nicotine dependence without complication Social History Tobacco Use Types Packs/Day Years [...] t he electric, gas, oil or water [employer] threatened to shut off services in your [...] Office Visit [facility] [address] [place] [address] Cesilia Alston ANP [address] [place] [address] documented as of this encounter Goals Goal Patient Goal Type Associated Problems Recent Progress Patient-Stated? Author Take your medication every day Lifestyle No Shannan Rojas, PharmD documented as of this encounter Visit Diagnoses Diagnosis Cigarette nicotine dependence without complication documented in this encounter Additional Health Concerns Assessment Noted Time PHQ-9 Depression Total Score: 0 10/21/20 24 10:30 AM EST documented as of this encounter Care Teams Business Initiatives Manager Relationship Specialty Start Date End Date Cesilia Alston ANP [address] [place] [phone] PCP - General Family Medicine 10/24/23 documented as of this encounter
--- OUTSIDE RECORDS SUMMARY | 2025-01-13 16:40 | XMS_ITS | Encounter Summary ---
Author Organization [employer] Address [address] [facility] 7t [place] [address] Care Team Providers Care Acute Care Occupational Therapist Name Role Phone Cesilia Alston FAISAL Primary Care Provider [phone] Encounter Details Date Type Department Care Team (Latest Contact Info) Description 12/16/2024 Travel Social History Tobacco Use Types Packs/Day Years [...] Description 01/27/2025 1:00 PM EST Office Visit [facility] [address] [place] [address] Cesilia Alston ANP [address] [place] [address] documented as of this encounter Goals Goal Patient Goal Type Associated Problems Recent Progress Patient-Stated? Author Take your medication every day Lifestyle Shannan Fiore, PharmD documented as of this encounter Visit Diagnoses Not on filedocumented in this encounter Additional Health Concerns Assessment Noted Time PHQ-9 Depression Total Score: 0 10/21/20 24 10:30 AM EST documented as of this encounter Care Teams Acute Care Occupational Therapist Relationship Specialty Start Date End Date Cesilia Alston ANP [address] [place] [phone] PCP - General Family Medicine 10/24/23 documented as of this encounter
--- OUTSIDE RECORDS SUMMARY | 2025-01-13 16:40 | XMS_ITS | Encounter Summary ---
Author Organization [employer] [facility] Address [address] [place] [address] Care Team Providers Care Duplicating Machine Operator Name Role Phone Cesilia Alston Primary Care Provider [phone] Reason for Referral * Imaging (Urgent) - Closed Specialty Diagnoses / Procedures Referred By Contvic t Referred To Contact Interventional Radiology Diagnoses Thyroid nodule greater than or equal to 1.5 cm in diameter incidentally noted on imaging study Procedures IR Fine Needle Aspiration Thyroid Cesilia Alston ANP [address] [place] [address] Phone: tel: fax: [address] Phone: tel:[phone] fax:[phone] Referral ID Status Reason Start Date Expiration Date Visits Re quested Visits Authorized [id number] Closed 12/17/2024 12/17/2025 1 1 Reason for Visit * Reason Comments Cough Encounter Details Date Type Department Care Team (Late st Contact Info) Description 12/16/2024 1:00 PM EST Office Visit [facility] [address] [place] [address] Cesilia Alston ANP [address] [place] [address] Acute cough (Primary Dx); Thyroid nodule greater than or equal to 1.5 cm in diameter incidentally noted on imaging study; Asthma with acute exacerbation, unspecified asthma severity, unspecified whether persistent; COPD exacerbation ([facility]) Social History Tobacco Use Types Packs/Day Years Used Date Smoking Tobacco: Every Day Cigarettes Passive Smoke Exposure: Current Smokeless Tobacco: Never Tobacco Cessation:Ready to Q uit: Not Asked; Counseling Given: Not Answered Comments:Smoked < 1/2 PPD [...] Sign Reading Time Taken Comments Blood Pressure 127/74 12/16/2024 1:14 PM EST Pulse 90 12/16/2024 1:14 PM EST Temperature 36.7 ??C (98.1 ??F) 12/16/2024 1:14 PM ES T Respiratory Rate 16 12/16/2024 1:14 PM EST Oxygen Saturation 94% 12/16/2024 1:14 PM EST Inhaled Oxygen Concentration - - Weight 105 kg (232 lb 3.2 oz) 12/16/2024 1:14 PM EST Height - - Body Mass Index 31.49 07/18/2024 8:54 AM EDT documented in this encounter Progress Notes * Cesilia Alston, ANP - 12/16/2024 1:00 PM EST Dick Rosales is 64 y.o. patient here today for sick visit. HPI PMH T2DM w/ HLD and neuropathy, GERD, sarcoidosis, thyroid nodule Follows with: Dr. Simon, GUEST REQUEST RUNNER Pop [facility] urology [facility] gastroenterology next visit October 31, 2024 Colonoscopy 04/14/2021 2 polyps removed, tubular adenoma, 3-year follow-up. Here today for sick visit for cough. Took a home COVID test 3 days ago which was negative. Was seen for cough at [facility] 11/23/24. Administered duoneb w/ good effect. Respiratory panel & chest XR there negative. Was following in past w/ Dr. Hay for sarcoidosis/asthma. Was on Trelegy but looks like last prescription for this was picked up 02/06/2024. Did fill albuterol nebulizer solution & albuterol inhaler from Dr. Hay 2024. Pt confirms has not been taking trelegy. Says last visit w/ pulm a few mos ago though this is not reflected in chart. Lab Results Component Value Date HGBA1C 6.6 (A) 10/21/2024 Smoking: still smoking. Wants to quit. Smokes 1/2 PPD. DM: Continue Lantus 30 units once daily and Trulicity 3 mg every week. Has CGM for blood sugar monitoring On ASA, statin, not on ACEi/ARB eye exam 09/19/2024 no diabetic complications. Thyroid nodule: Had US last week 12/08/24 HISTORY: The patient is a 64-year-old male [...] since the prior study of 06/03/2024; this differenceis likely consequent to technical scanning factors. The [...] prior study. This has minimally increased in sizesince the prior study. This contains some isoechoic to mildly hypoechoic components. This is again seen to be wider than it is tall and demonstrates no wall irregularity or microcalcifications. This is again categorized as TI-RADS 3. TI-RADS Category 3: 3 pts; mildly suspicious; < or = 1.5 cm f/u; > or = 2.5 FNA (f/u 1, 3 and5 yr) Re: colonoscopy: At last visit I asked him to call Dr. Burnham's office as it appeared he had colonoscopy scheduled early October. Does not appear this transpired. Review of Systems Constitutional: Negative for chills and fever. HENT: Negative for congestion and sore throat. Eyes: Negative for visual disturbance. Respiratory: Positive for cough, chest tightness and shortness of breath. Negative for wheezing. Cardiovascular: Negative for chest pain, palpitations and leg swelling. Gastrointestinal: Negative for abdominal pain and vomiting. Endocrine: Negative for polydipsia, polyphagia and polyuria. Musculoskeletal: Negative for back pain. Neurological: Negative for weakness. Psychiatric/Behavioral: Negative for dysphoric mood. Patient Active Problem List Diagnosis Dyslipidemia Gastroesophageal reflux disease without esophagitis Pain of male genitalia Phimosis Type 2 diabetes mellitus with hyperlipidemia (CMS/HCC) (CMS/HCC) Non compliance w medication regimen Sarcoidosis Neuropathy Foot pain, bilateral Laceration of internal mouth Symptomatic irreversible pulpitis Periodontal disease Objective BP 127/74 (BP Location: Right arm, Patient Position: Sitting, BP Cuff Size: Adult) Pulse 90 Temp 98.1 ??F (36.7 ??C) (Temporal) Resp 16 Wt 232 lb 3.2 oz (105 kg) SpO2 94% BMI 31.49 kg/m?? Physical Exam Vitals reviewed. Constitutional: General: He is not in acute distress. Appearance: Normal appearance. He is not ill-appearing. HENT: Head: Normocephalic and atraumatic. Nose: Congestion present. Eyes: General: No scleral icterus. Extraocular Movements: Extraocular movements intact. Pupils: Pupils are equal, round, and reactive to light. Cardiovascular: Rate and Rhythm: Normal rate and regular rhythm. Pulmonary: Effort: Pulmonary effort is normal. No accessory muscle usage or respiratory distress. Breath sounds: Wheezing and rhonchi present. Comments: Flattening costovertebral angle Musculoskeletal: Right lower leg: No edema. Left lower leg: No edema. Skin: General: Skin is warm and dry. Neurological: Mental Status: He is alert and oriented to person, place, and time. Psychiatric: Mood and Affect: Mood normal. Behavior: Behavior normal. Diagnoses and all orders for this visit: Acute cough Will treat for COPD exacerbation given ?asthma in context of long history of smoking, increased shortness of breath, wheezing and rhonchi bilateral lower lobes, will check for more updated pulmonology notes. Asked him to please resume Trelegy. Have sent Z-Thuan, Tessalon Perles.. Did not send prednisone as it has been advised to try to avoid systemic steroids in this pt w/ mood d/o out of concern for destabilization. Call clinic if not feeling better within 48 hours. - POCT Rapid Covid-19 MEMBRENO ID NOW - XR Chest 2 Views; Future - benzonatate (Tessalon Perles) 100 MG capsule; Take 1 capsule (100 mg) by mouth if needed in the morning, at noon, and at bedtime for cough for up to 7 days. Do not crush or chew. Thyroid nodule greater than or equal to 1.5 cm in diameter incidentally noted on imaging study Comments: TI-RADS3 2.5cm x 2.3cm x 2.1cm, FNA vs US monitoring. Patient elects fine-needle aspiration which I agree would be most appropriate. Will order. Asthma with acute exacerbation, unspecified asthma severity, unspecified whether persistent Vs COPD. Plan as above. - Trelegy Ellipta 100-62.5-25 MCG/ACT aerosol powder ; Inhale 1 Inhalation Once daily. - ipratropium-albuterol (Duo-Neb) 0.5-2.5 mg/3 mL nebulizer solution 3 mL COPD exacerbation (CMS/HCC) - azithromycin (Zithromax) 250 MG tablet; On day 1 take 2 tablets once, then take 1 tablet once daily days 2 - 5 documented in this encounter Plan of Treatment Upcoming Encounters Date Type Department Care Team (Late st Contact Info) Description 01/27/2025 1:00 PM EST Office Visit [facility] [address] [place] [address] Cseilia Alston ANP [address] [place] [address] Scheduled Orders Name Type Priority Associated Diagnoses Orde r Schedule XR Chest 2 Views Imaging Routine Acute cough Expected: 12/16/2024, Expires: 12/16/2025 IR Fine Needle Aspiration Thyroid Imaging Urgent Thyroid nodule greater than or equal to 1.5 cm in diameter incidentally noted on imaging study Expected: 12/17/2024 (Approximate), Expires: 12/17/2025 documented as of this encounter Goals Goal Patient Goal Type Associated Problems Recent Progress Patient-Stated? Author Take your medication every day Lifestyle No Shannan Rojas, PharmD documented as of this encounter Procedures Procedure Name Priority Date/Time Associated Diagnosis Comments POCT COVID-19 AG MEMBRENO ID NOW Routine 12/16/2024 1:00 PM EST Acute cough documented in this encounter Results * POCT Rapid Covid-19 MEMBRENO ID NOW (12/16/2024 1:00 PM EST) Swab 12/16/2024 1:00 PM EST Cesilia MALONE POINT OF CARE TEST ENTER/EDIT OR DERABLES Final Result documented in this encounter Visit Diagnoses Diagnosis Acute cough- Primary Thyroid nodule greater than or equal to 1.5 cm in diameter incidentally noted on imaging study Asthma with acute exacerbation, unspecified asthma severity, unspecified whether persistent COPD exacerbation ([facility]) Obstructive chronic bronchitis with exacerbation documented in this encounter Administered Medications Inactive Administered Medications - up to 3 most recent administrations Medication Order MAR Action Action Date Dose Rate Site ipratropium-albuterol (Duo-Neb) 0.5-2.5 mg/3 mL nebulizer solution 3 mL 3 mL, Nebulization, Once, On Sun12/16/24 at 1345, For 1 doseIndications:Asthma with acute exacerbation, unspecified asthma severity, unspecified whether persistent Given 12/16/2024 1:45 PM EST 3 mL documented in this encounter Additional Health Concerns Assessment Noted Time PHQ-9 Depression Total Score: 0 10/21/20 24 10:30 AM EST documented as of this encounter Care Teams Duplicating Machine Operator Relationship Specialty Start Date End Date Cesilia Alston ANP [address] [place] [address] PCP - General Family Medicine 10/24/23 documented as of this encounter
--- OUTSIDE RECORDS SUMMARY | 2025-01-13 16:40 | XMS_ITS | Encounter Summary ---
Author Organization [employer] Address [address] [place] [address] Care Team Providers Care Information Systems Planner Name Role Phone Cesilia Alston FAISAL Primary Care Provider [phone] Encounter Details Date Type Department Care Team (Late st Contact Info) Description 01/13/[address] [facility] [address] [place] [address] Susanne Francisco RN Social History Tobacco Use Types Packs/Day Years [...] Telephone Encounter - Susanne Francisco RN - 01/13/2025 10:48 AM EST Pt walked into green team front desk officer asking for ED follow up. Pt seen at [facility] ED on 01/10/25 for groin swelling/pain, seen today by Dr Mauricio in [facility] for same concern. Advised pt that since he was just seen for same concern, to follow Dr Mauricio's recommendations from today and to call [facility] or return to [facility] in a few days if symptoms do not improve. Explained to pt that he has appt with PCP scheduled for 01/27/25 (in 2 weeks), printed reminder. Advised pt to call [facility] if symptoms do not resolvein a few days, explained WIC hours and NTTS sanitation worker nurse. Pt verbalized understanding. documented in this encounter Plan of Treatment Upcoming Encounters Date Type Department Care Team (Late st Contact Info) Description 01/27/2025 1:00 PM EST Office Visit [facility] [address] [place] [phone] Cesilia Alston ANP [address] [place] [address] documented as of this encounter Goals Goal Patient Goal Type Associated Problems Recent Progress Patient-Stated? Author Take your medication every day Lifestyle No Shannan Rojas, PharmD documented as of this encounter Visit Diagnoses Not on filedocumented in this encounter Additional Health Concerns Assessment Noted Time PHQ-9 Depression Total Score: 0 10/21/20 24 10:30 AM EST documented as of this encounter Care Teams Information Systems Planner Relationship Specialty Start Date End Date Cesilia Alston ANP [address] [place] [address] PCP - General Family Medicine 10/24/23 documented as of this encounter
--- OUTSIDE RECORDS SUMMARY | 2025-01-13 16:40 | XMS_ITS | Encounter Summary ---
Author Organization [employer] Address [address] [facility] [address] [place] [address] Care Team Providers Care Digital Sales Manager Name Role Phone Cesilia Alston Primary Care Provider [phone] Reason for Visit * Reason Comments Med Refill Encounter Details Date Type Department Care Team (Late st Contact Info) Description 12/16/2024 Refill [facility] [address] [place], [place] [phone] Cesilia Alston ANP [address] [place], [place] [phone] Cigarette nicotine dependence without complication (Primary Dx) Social History Tobacco Use Types Packs/Day Years [...] Description 01/27/2025 1:00 PM EST Office Visit [facility] [address] [place] [phone] Cesilia Alston ANP [address] [place] [address] documented as of this encounter Goals Goal Patient Goal Type Associated Problems Recent Progress Patient-Stated? Author Take your medication every day Lifestyle No Shannan Rojas, PharmD documented as of this encounter Visit Diagnoses Diagnosis Cigarette nicotine dependence without complication- Primary documented in this encounter Additional Health Concerns Assessment Noted Time PHQ-9 Depression Total Score: 0 10/21/20 24 10:30 AM EST documented as of this encounter Care Teams Digital Sales Manager Relationship Specialty Start Date End Date Cesilia Alston ANP [address] [place] [address] PCP - General Family Medicine 10/24/23 documented as of this encounter
[2025-01-13 17:57] LABS: CT PCR NOT DETECTED (Not Detect.); NG PCR NOT DETECTED (Not Detect.)
== END 2025-01-13 16:06 | disposition home or self-care (01) ==
LOC: HO.HHCLNP 16:05
PROVIDERS: Visit Provider Emergency Medicine
DX: R30.0 Dysuria (principal); R10.2 Pelvic and perineal pain
CPT/HCPCS: 87086; 87491; 87591

== ENCOUNTER 2025-02-06 12:28 | Outpatient (AMB) | payer OTHER, SELFPAY ==
[2025-02-06 12:40] VITALS: BMI 27.3
--- NOTE | 2025-02-06 12:40 | MHC.OFFVIS ---
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 Was seen for US in 11/2021. Pt states he gets cramping and has neuropathy pain. 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 He has a lengthy history of diabetes and cigarette smoking, his last A1c was 10.0% on 01/27/2025. He did quit smoking for approximately 3 months but now is back to approximately 1/2 pack a day. He states he does have a history of neuropathy and is taking gabapentin for it; however, he states he has not been helping well. He has complaints of discomfort in the left ankle area as well as numbness in the right foot. He denies any swelling. He states he does get cramping in his calves, worse with any physical activity including walking. He states the pain does decreased significantly when he is at rest and elevates his legs. He has been seen in this office before and was noted to have just very minimal venous insufficiency in 2021. There were no venous procedures performed and he was told to follow up as needed. He states this pain is different than it was when he came here 3 years ago. [facility] Medical History Thyroid nodule Pulmonary nodules Tobacco dependence Bronchopneumonia Post traumatic stress disorder (PTSD) Bipolar II disorder Hallucination, visual Chronic bronchitis with wheezing Asthma-COPD overlap syndrome Pneumonitis Hyperhidrosis Back pain Diabetes Neuropathy Anxiety PTSD (post-traumatic stress disorder) Depression Gout Sarcoidosis GERD (gastroesophageal reflux disease) Surgical History History of bronchoscopy Hx of colonoscopy Family History Father Myocardial infarction Mother No problems noted. Social History (Updated 02/06/25 @ 12:44 by NADEEM Forde) Household Members: None Housing: House Housing Other:: rent Do you presently have visiting nurse or other home services: Yes Alcohol intake: current Alcohol intake frequency: holidays/special occasions only Patient Tobacco Use Status: Current everyday Tobacco user Tobacco use type: Cigarette Cigarette Packs Per Day: 1 Cigarettes Per Day: 7 Years Smoked: 53, prior 2 ppd smoker since age of 10 e-Cigarette/Vaping Use: Never Used Second Hand Smoke Exposure: Yes Substance Use Type: Marijuana service: No Sexual orientation: Straight/Heterosexual Review of Systems Const Reports as per HPI and Denies weakness ENT Reports Normal hearing present and Denies dizziness Card Reports as per HPI, Denies chest pain, Denies chest pain at rest, Denies chest pain with activity, Denies dyspnea and Denies dyspnea on exertion Resp Reports as per HPI, Denies cough, Denies dyspnea and Denies dyspnea on exertion GI Reports as per HPI, Denies abdominal pain, Denies nausea and Denies vomiting Musc Denies numbness Skin/Breast Reports as per HPI, Denies erythema and Denies wounds Neuro Reports Normal hearing present, Denies dizziness, Denies numbness, Denies Sensory deficit (Neuro) and Denies weakness Psych Reports no additional complaints Endo Reports no additional complaints Physical Exam Vital Signs: BMI result Body Mass Index 27.3 Const General: healthy appearing and no acute distress Orientation/consciousness: patient oriented x3 HEENT Head: Yes normal to inspection Ears: hearing grossly normal bilaterally Mouth: Normal oral and palatal mucosa present Resp Effort & Inspection: normal respiratory effort and able to speak in complete sentences Auscultation: clear to auscultation bilaterally Cardio Jugular venous distension: no JVD Rate: regular rate Rhythm: regular rhythm Heart sounds: S1 normal heart sound present and S2 normal heart sound present Bruits: no abdominal aortic bruits, no carotid bruits, no femoral bruits and no renal bruits Peripheral pulses: Peripheral pulses 2+ throughout GI Inspection: Yes normal to inspection Palpation (GI): No Abdominal aortic bruit present Skin General skin exam: no rashes or lesions noted Wounds: no wounds Hair: normal Neuro General: patient oriented x3 Cranial nerves: Yes Normal hearing present Cognition (Neuro): normal cognition Gait exam (Neuro): Normal gait present Motor exam (neuro): 5/5 motor strength present throughout Sensory Exam: No Sensory deficit (Neuro) Extrem Other: Left lower extremity: Painful to palpation in the medial ankle area. No wounds noted. No discoloration noted. No edema noted. Faint but palpable DP pulses noted. Foot is warm to the touch. Cap refill less than 3 seconds. Right lower extremity: No discoloration, edema, or wounds noted. Palpable DP pulses. Foot is warm to the touch. Cap refill less than 3 seconds. General: Yes normal to inspection, Yes full ROM, Yes capillary refill normal and Yes normal gait Quality Reporting (2019) Adult ([facility] 138/01/17/69) Smoking risk assessment performed?: Yes Patient Tobacco Use Status: Current everyday Tobacco user Assessment & Plan Assessment & Plan (1) Peripheral artery disease: Code(s): I73.9 - Peripheral vascular disease, unspecified Category: Medical Plan: Dick is presenting today on a referral from his PCP for concerns of claudication/peripheral vascular disease. He does have a lengthy history of diabetes with neuropathy, for which she takes gabapentin for. He states he is having pain and discomfort in his left ankle area as well as right foot numbness. He also states that he is having calf pain, worse with activity. We have ordered a arterial duplex ultrasound due to the claudication symptoms. We discussed the importance of diabetes/blood glucose control. We also discussed the importance of smoking cessation. We discussed the effects that these can both have on the arterial and venous system. We did review his venous insufficiency ultrasound in 2021, which revealed just mild reflux in the right lower extremity. We will have him follow up with us after the ultrasound is completed. If there are any questions or concerns, please do not hesitate to reach out to us. Orders: Orders US arterial duplex LE BI 1 Week I73.9 - Peripheral vascular disease, unspecified Coding Level of Care Code Est Pt Level 4 (53396) Diagnoses Peripheral artery disease I73.9
--- OUTSIDE RECORDS SUMMARY | 2025-02-06 14:03 | XMS_ITS ---
Author Organization [facility] Address [address] [place], [place] [id number] Care Team Providers Care Drop Machine Operator Name Role Phone Pedro Luis AYALA, Hannah Primary Care Provider Unavaila [facility], [facility] Unavailable [phone] REASON FOR VISIT office: Dta address change [...] Diagnosis [facility] Social Ser vice[address] [phone] 02/06/2024 [facility] Plan Of Treatment No Information Progress Notes * Dick ROSALES ADOB:1960 (63 yo M)Acc No.[id number]:02/06/2024 Patient:?Dick Rosales Provider:?[facility] :1960???Age:63 Y???Sex:Male Aristides e:02/06/2024 Address:[address] [place] [address] Pcp:Hannah Cloud MD Subjective: * Chief Complaints: * ???1. office: [facility] address [facility]. * HPI: ???Social Service:?Date of encounter?02/06/24.?Referral Source?Seen at: [facility].?Action Taken?Insurance eligibility assessed?02/06/2024 [id number] MHSTD w Medicare A & B,?SNAP application?02/06/2024 [...] Sign off status: Completed true * Provider:?[facility] Date:?02/06/2024 Generated for Nelson rodgers/Tasneem/Rigo on:?02/06/2025 02:03 PM EDT History and Physical Notes * HPI (History of Present Illness) Category Sub-Category Detail Notes Social Service Referral Source Seen at: [facility] or Follow-up Required: no Pt comprehension Pt agrees with plan, Patient understood process and assisted with process Action Taken Insurance eligibilit y assessed: 02/06/2024 [id number] MHSTD w Medicare A & B SNAP application: 02/06/2024 Client came in needed to update address with DTA. Assisted client with prosses and faxed new address verification., documents faxed to DTA Date of encounter 02/06/24
--- OUTSIDE RECORDS SUMMARY | 2025-02-06 14:03 | XMS_ITS ---
Author Organization [facility] Address [address] [place], [place] [id number] Care Team Providers Care Behavioral Pediatrician Name Role Phone Pedro Luis AYALA, Hannah Primary Care Provider Unavaila emily [facility] Unavailable [phone] Kermit Andre Unavailable [phone] Medications Medication SIG (Take, Route, Frequency, Duration) [...] Diagnosis [facility] Social Ser vice[address] [phone] 02/06/2024 Kermit Andre Plan Of Treatment No Information Progress Notes * Dick ROSALES ADOB:1960 (63 yo M)Acc No.[id number]:02/06/2024 Case Management Patient:?Dick Rosales Provider:?Kermit Car :1960???Age:63 Y???Sex:Male Aristides e:02/06/2024 Address:[address] [place] [address] Pcp:Hannah Cloud MD Subjective: * Chief Complaints: * ??? * HPI: ???Social Service:?Date of encounter?[id number].?Referral Source?walk-in, returning client, self.?Interpretation for medical provider?housing, Mail orange picking supervisor.?Follow-up Required:?yes, Type of follow-up: CM.?Pt comprehension?Pt agrees [...] * Sign off status: Completed true * Provider:Tanisha Car Date:?02/06/2024 Generated for Nelson rodgers/Tasneem/Rigo on:?02/06/2025 02:03 PM EDT History and Physical Notes * HPI (History of Present Illness) Category Sub-Category Detail Notes Social Service Referral Source walk-in, trae rodgers client, self Interpretation for medical provider hous ing, Mail orange picking supervisor Action taken (old) form completion: int k, mail intk, autorization to release info, Follow-up Required: yes, Type of follow- up: CM Pt comprehension Pt agrees with plan, Patient understood process and assisted with process Date of encounter [id number]
--- OUTSIDE RECORDS SUMMARY | 2025-02-06 14:03 | XMS_ITS | Clinical Summary ---
Author Organization [facility] Address [address] [place] [address] Phone Care Team Providers Care Interactive Graphic Designer Name Role Phone Cesilia Alston NP Primary Care Provider [phone] Allergies No known active allergies Medications oxyCODONE [...] 7 days. 28 each 5 01/17/20 25 clotrimazole (LOTRIMIN) 1 % cream Apply topically 2 (two) times a day for 7 days. Apply to affected area 2 times daily 15 g 5 01/17/20 25 Active Problems Problem Noted Date Diagnosed Date Neuropathy Encounters Date Type Department Care Team Description 01/10/2025 11:23 AM EST - 01/10/2025 4:50 PM EST Emergency Emergency [address] [place] [address] Cristian Ramsey MD Hyperglycemia (Primary Dx); Balanoposthitis Discharge Disposition: Home or Self Care 01/05/2025 1:07 PM EST - 01/05/2025 11:59 PM EST Hospital Encounter Ultrasound [address] [place] [phone] Thyroid nodule Discharge Disposition: Home or Self Care 12/17/2024 10:59 AM EST - 12/17/2024 11:59 PM EST Hospital Encounter Xray [address] [place] [address] Acute cough Discharge Disposition: Home or Self Care 12/08/2024 1:28 PM EST - 12/08/2024 11:59 PM EST Hospital Encounter Ultrasound [address] [place] [phone] Nontoxic single thyroid nodule Discharge Disposition: Home or Self Care 11/23/2024 12:21 PM EST - 11/23/2024 2:52 PM EST Emergency Emergency [address] [place] [address] Viral syndrome (Primary Dx) Discharge Disposition: Home [...] - 100 mg/dL 01/10/2025 4:25 PM EST [facility] Blood Capillary blood specimen / Unknown 01/10/2025 4:24 PM EST 01/10/2025 4:26 PM EST us Cristian Ramsey MD LAB POINT OF CARE T EST DOCKED DEVICE UNSOLICITED RESULTS Final Result [facility] [address] [place] [address], [place] [phone] * CT Abdomen Pelvis w Contrast (01/10/2025 [...] Signed Date: 01/10/2025 14:28 ET Workstation ID: [id number] Transcribed By: Self Edit Transcribed Date: 01/10/2025 [...] Signed Date: 01/10/2025 14:28 ET Workstation ID: [id number] Transcribed By: Self Edit Transcribed Date: 01/10/2025 14:20 ET [place] COHEN IM CT PROCEDURES Final Resu lt * (ABNORMAL) Urinalysis with reflex microscopic and culture (01/10/2025 12:49 PM EST) Specific [place] Urine 1.025 1.003 - 1.030 LAB URINALYSIS - AUTOMATED METHOD 01/10/2025 1:11 PM [facility] pH, Urine 5.5 5.0 - 8.0 pH LAB URINALYSIS - AUTOMATED METHOD 01/10/2025 1:11 PM [facility] Leukocytes, Urine Negative Negative LAB URINALYSIS - AUTOMATED METHOD 01/10/2025 1:11 PM [facility] Nitrite, Urine Negative Negative LAB URINALYSIS - AUTOMATED METHOD 01/10/2025 1:11 PM [facility] Protein, Urine Negative <=Trace mg/dL LAB URINALYSIS - AUTOMATED METHOD 01/10/2025 1:11 PM [facility] Glucose, Urine >=1000(A) Negative mg/dL LAB URINALYSIS - AUTOMATED METHOD 01/10/2025 1:11 PM [facility] Ketones, Urine Negative Negative mg/dL LAB URINALYSIS - AUTOMATED METHOD 01/10/2025 1:11 PM [facility] Urobilinogen , Urine 0.2 0.2 - 1.0 mg/dL LAB URINALYSIS - AUTOMATED METHOD 01/10/2025 1:11 PM [facility] Bilirubin, Urine Negative Negative LAB URINALYSIS - AUTOMATED METHOD 01/10/2025 1:11 PM [facility] Blood, Urine Negative Negative LAB URINALYSIS - AUTOMATED METHOD 01/10/2025 1:11 PM [facility] Urine Urine specimen obtained by clean catch procedure / Unknown Non-blood Collection / Unknown 01/10/2025 12:49 PM EST 01/10/2025 12:57 PM EST us Milan COHEN LAB URINE ORDERABLES Final R esult [facility] [address] [place] [address], [place] [phone] * Recinos urine culture tube (01/10/2025 12:49 PM EST) [facility] Extra Tube Hold for add-ons. 01/10/2025 2:01 PM EST [facility] Comment:Auto resulted. Urine Urine specimen obtained by clean catch procedure / Unknown Non-blood Collection / Unknown 01/10/2025 12:49 PM EST 01/10/2025 12:57 PM EST [place] COHEN LAB URINE ORDERABLES Final R esult [facility] [address] [place] [address], [place] [phone] * (ABNORMAL) CBC auto differential (01/10/2025 12:12 PM EST) [facility] WBC 6.0 4.8 - 10.8 K/mcL LAB HEMETOLOGY METHOD 01/10/2025 12:34 PM [facility] RBC 4.40(L) 4.50 - 5.50 M/mcL LAB HEMETOLOGY METHOD 01/10/2025 12:34 PM [facility] Hemoglobin 12.5(L) 13.5 - 17.5 g/dL LAB HEMETOLOGY METHOD 01/10/2025 12:34 PM [facility] Hematocrit 36.5(L) 42.0 - 54.0 % LAB HEMETOLOGY METHOD 01/10/2025 12:34 PM [facility] MCV 82.6 79.0 - 98.0 FL LAB HEMETOLOGY METHOD 01/10/2025 12:34 PM [facility] MCH 28.3 27.0 - 32.0 pcg LAB HEMETOLOGY METHOD 01/10/2025 12:34 PM [facility] MCHC 34.2 32.0 - 37.0 g/dL LAB HEMETOLOGY METHOD 01/10/2025 12:34 PM [facility] RDW 12.9 11.0 - 15.0 % LAB HEMETOLOGY METHOD 01/10/2025 12:34 PM [facility] Platelets 155 130 - 400 K/mcL LAB HEMETOLOGY METHOD 01/10/2025 12:34 PM [facility] MPV 11.9(H) 7.0 - 11.0 FL LAB HEMETOLOGY METHOD 01/10/2025 12:34 PM [facility] NRBC 0.0 <1.0 % LAB HEMETOLOGY METHOD 01/10/2025 12:34 PM [facility] NRBC Absolute 0.00 <0.10 K/mcL LAB HEMETOLOGY METHOD 01/10/2025 12:34 PM [facility] Neutrophils Relative 51.9 % LAB HEMETOLOGY METHOD 01/10/2025 12:34 PM [facility] Lymphocytes Relative 36.3 % LAB HEMETOLOGY METHOD 01/10/2025 12:34 PM [facility] Monocytes Relative 6.0 % LAB HEMETOLOGY METHOD 01/10/2025 12:34 PM [facility] Eosinophils Relative 3.8 % LAB HEMETOLOGY METHOD 01/10/2025 12:34 PM [facility] Basophils Relative 1.3 % LAB HEMETOLOGY METHOD 01/10/2025 12:34 PM [facility] Immature Granulocytes Relative 0.7 % LAB HEMETOLOGY METHOD 01/10/2025 12:34 PM [facility] Neutrophils Absolute 3.14 1.50 - 7.00 K/mcL LAB HEMETOLOGY METHOD 01/10/2025 12:34 PM [facility] Lymphocytes Absolute 2.19 1.00 - 5.00 K/mcL LAB HEMETOLOGY METHOD 01/10/2025 12:34 PM EST [facility] Monocytes Absolute 0.36 0.20 - 1.00 K/[facility] LAB HEMETOLOGY METHOD 01/10/2025 12:34 PM EST [facility] Eosinophils Absolute 0.23 0.00 - 0.50 K/[facility] LAB HEMETOLOGY METHOD 01/10/2025 12:34 PM EST [facility] Basophils Absolute 0.08 0.00 - 0.20 K/[facility] HEMETOLOGY METHOD 01/10/2025 12:34 PM [facility] Immature Granulocytes Absolute 0.04(H) 0.00 - 0.03 K/[facility] HEMETOLOGY METHOD 01/10/2025 12:34 PM [facility] Blood Venous blood specimen / Unknown Venipuncture / Unknown 01/10/2025 12:12 PM EST 01/10/2025 12:16 PM EST [place] COHEN LAB BLOOD ORDERABLES Final R esult [facility] [address] [place] [address], * (ABNORMAL) Comprehensive metabolic panel (01/10/2025 12:12 PM EST) Sodium 135 133 - 145 mmol/L LAB CHEMISTRY METHOD 01/10/2025 1:05 PM [facility] Potassium 4.1 3.5 - 5.5 mmol/L LAB CHEMISTRY METHOD 01/10/2025 1:05 PM [facility] Chloride 105 96 - 110 mmol/L LAB CHEMISTRY METHOD 01/10/2025 1:05 PM [facility] CO2 24 21 - 32 mmol/L LAB CHEMISTRY METHOD 01/10/2025 1:05 PM [facility] Anion Gap 6 3 - 11 LAB CHEMISTRY METHOD 01/10/2025 1:05 PM [facility] Glucose 382(H) 70 - 100 mg/dL LAB CHEMISTRY METHOD 01/10/2025 1:05 PM [facility] BUN 14 5 - 25 mg/dL LAB CHEMISTRY METHOD 01/10/2025 1:05 PM [facility] Creatinine 1.19 0.70 - 1.30 mg/dL LAB CHEMISTRY METHOD 01/10/2025 1:05 PM [facility] eGFR 69 >=60 mL/min/1. 73m2 LAB CHEMISTRY METHOD 01/10/2025 1:05 PM [facility] Comment:Calculation based on the??Chronic Kidney Disease Epidemiology Collaboration (CKD-EPI) equation refit??without adjustment for race. BUN/Creatinine Ratio 11.8 LAB CHEMISTRY METHOD 01/10/2025 1:05 PM [facility] Calcium 8.7 8.5 - 10.5 mg/dL LAB CHEMISTRY METHOD 01/10/2025 1:05 PM [facility] AST (SGOT) 13 10 - 42 unit/L LAB CHEMISTRY METHOD 01/10/2025 1:05 PM [facility] ALT (SGPT) 33 10 - 60 unit/L LAB CHEMISTRY METHOD 01/10/2025 1:05 PM [facility] Alkaline Phosphatase 151(H) 42 - 121 unit/L LAB CHEMISTRY METHOD 01/10/2025 1:05 PM [facility] Total Protein 7.1 6.0 - 8.0 g/dL LAB CHEMISTRY METHOD 01/10/2025 1:05 PM [facility] Albumin 3.9 3.2 - 5.0 g/dL LAB CHEMISTRY METHOD 01/10/2025 1:05 PM [facility] Total Bilirubin 0.7 0.0 - 1.4 mg/dL LAB CHEMISTRY METHOD 01/10/2025 1:05 PM [facility] Blood Venous blood specimen / Unknown Venipuncture / Unknown 01/10/2025 12:12 PM EST 01/10/2025 12:16 PM EST [place] [facility] LAB [facility]LOOD [facility]ABLES [facility] [address] [place] [address], [place] [phone] * [place] Bx Ndl Thyroid Perc (01/05/2025 [...] Signed Date: 01/05/2025 15:20 ET Workstation ID: [id number] Transcribed By: Self Edit Transcribed Date: 01/05/2025 15:06 ET Resident/PA/BURLAP WORKER: Su Morgan Procedure Note Rl Keys MD [...] Signed Date: 01/05/2025 15:20 ET Workstation ID: [id number] Transcribed By: Self Edit Transcribed Date: 01/05/2025 15:06 ET Resident/PA/BURLAP WORKER: Su Morgan us Cesilia Alston NP IMG US PROCEDURES Final Result * Fine needle aspiration (01/05/2025 1:44 PM EST) Final Diagnosis A. Left thyroid, fine needle aspiration (ThinPrep, direct smears): Benign ([place] Category II) Consistent with follicular nodular disease (includes adenomatoid nodule, colloid nodule, etc.) 01/06/2025 2:44 PM EST [facility] Specimen A Adequacy Satisfactory for evaluation 01/06/2025 2:44 PM EST [facility] Comment:This is an appended report. These results have been appended to a previously preliminary verified report. Gross Description A. Thyroid, left thyroid nodule: Received in Cytolyt 30 ml of pink fluid; 1 ThinPrep 3 passes 6 direct smears (3 air-dried and 3 alcohol fixed) 01/06/2025 2:44 PM EST [facility] Intraoperative Consultation A. Thyroid, left thyroid nodule: Predominantly benign hemorrhagic cyst contents. Insufficient follicular epithelium in preliminary review. Tiffanie Tompkins MD 01/05/25 14:45 01/06/2025 2:44 PM EST [facility] Disclaimer Unless otherwise specified, all tissue is 10% NB formalin fixed and paraffin embedded. Technical cytopathology services provided by [facility], at [address] [place] [address] (CLIA # [id number]/Froylan Wheatley MD, Java Consultant.) 01/06/2025 2:44 PM EST [facility] Fine Needle Aspirate Thyroid structure / Unknown 01/05/2025 1:44 PM EST 01/05/2025 2:36 PM EST us Su COHEN LAB PATHOLOGY ORDERABLES Final R esult [facility] [address] [place] [address], * XR Chest 2 Views (12/17/2024 11:04 [...] Signed Date: 12/17/2024 11:37 ET Workstation ID: [id number] Transcribed By: Self Edit Transcribed Date: 12/17/2024 [...] Signed Date: 12/17/2024 11:37 ET Workstation ID: [id number] Transcribed By: Self Edit Transcribed Date: 12/17/2024 [...] in one year, may be obtained. Code 89544 TI-RADS Category 1: ??0 pts; benign; no [...] Signed Date: 12/15/2024 10:18 ET Workstation ID: [id number] Transcribed By: Self Edit Transcribed Date: 12/15/2024 [...] examination in oneyear, may be obtained. Code 32386 TI-RADS Category 1: 0 pts; benign; no [...] Signed Date: 12/15/2024 10:18 ET Workstation ID: [id number] Transcribed By: Self Edit Transcribed Date: 12/15/2024 10:07 ET us Cesilia Alston BURLAP WORKER IMG US PROCEDURES Final Result * Respiratory virus panel molecular study (11/23/2024 12:27 PM EST) Adenovirus Detection by PCR Not Detected Not Detected LAB MICROBIOLOGY METHOD 11/23/2024 2:02 PM [facility] Influenza A PCR Not Detected Not Detected LAB MICROBIOLOGY METHOD 11/23/2024 2:02 PM [facility] Influenza B PCR Not Detected Not Detected LAB MICROBIOLOGY METHOD 11/23/2024 2:02 PM [facility] Coronavirus 229E Not Detected Not Detected LAB MICROBIOLOGY METHOD 11/23/2024 2:02 PM [facility] Coronavirus HKU1 Not Detected Not Detected LAB MICROBIOLOGY METHOD 11/23/2024 2:02 PM [facility] Coronavirus OC43 Not Detected Not Detected LAB MICROBIOLOGY METHOD 11/23/2024 2:02 PM [facility] Coronavirus NL63 Not Detected Not Detected LAB MICROBIOLOGY METHOD 11/23/2024 2:02 PM [facility] Parainfluenza Virus 1 Not Detected Not Detected LAB MICROBIOLOGY METHOD 11/23/2024 2:02 PM [facility] Parainfluenza Virus 2 Not Detected Not Detected LAB MICROBIOLOGY METHOD 11/23/2024 2:02 PM [facility] Parainfluenza Virus 3 Not Detected Not Detected LAB MICROBIOLOGY METHOD 11/23/2024 2:02 PM [facility] Parainfluenza Virus 4 Not Detected Not Detected LAB MICROBIOLOGY METHOD 11/23/2024 2:02 PM [facility] RSV PCR Not Detected Not Detected LAB MICROBIOLOGY METHOD 11/23/2024 2:02 PM [facility] Human Metapneumovirus A and B Not Detected Not Detected LAB MICROBIOLOGY METHOD 11/23/2024 2:02 PM [facility] Rhinovirus/Entero virus Not Detected Not Detected LAB MICROBIOLOGY METHOD 11/23/2024 2:02 PM [facility] Bordetella pertussis Not Detected Not Detected LAB MICROBIOLOGY METHOD 11/23/2024 2:02 PM [facility] Bordetella parapertussis Not Detected Not Detected LAB MICROBIOLOGY METHOD 11/23/2024 2:02 PM [facility] Mycoplasma pneumo by PCR Not Detected Not Detected LAB MICROBIOLOGY METHOD 11/23/2024 2:02 PM [facility] Chlamydia pneumoniae Not Detected Not Detected LAB MICROBIOLOGY METHOD 11/23/2024 2:02 PM [facility] SARS COV-2 Not Detected Not Detected LAB MICROBIOLOGY METHOD 11/23/2024 2:02 PM [facility] Swab Both anterior nares / Unknown Non-blood Collection / Unknown 11/23/2024 12:27 PM EST 11/23/2024 12:54 PM EST [facility] - 11/23/2024 2:02 PM EST Testing was performed using the PolyRemedy Respiratory Pathogen PCR Assay. All results must [...] that are below the limit of detection. us Jimena Tarpey PA LAB MICROBIOLOGY - GENERAL ORD ERABLES Final Result [facility] [address] [place] [address], from Last [address] [place] [address] [place] [address] MEDICARE Member Subscriber Plan / Payer (Ef fective 2018-Present) Name:Dick Rosales Sr Relation to Subscriber:Self Name:Dick Rosales Sr Payer ID:[id number] Group ID:[id number] Type:Not on file Address: [place] [address] [address] [phone] Care Teams Interactive Graphic Designer Relationship Specialty Start Date End Date Cesilia Alston NP [address] [place] [phone] PCP - General 10/03/24
--- OUTSIDE RECORDS SUMMARY | 2025-02-06 14:03 | XMS_ITS | Encounter Summary ---
Author Organization [facility] Address [address] [place] [address] Care Team Providers Care Electrical Prospecting Observer Name Role Phone Cesilia Alston NP Primary Care Provider [phone] Reason for Visit * Reason Comments Groin Pain Reports groin/prosta te/swelling since yesterday Encounter Details Date Type Department Care Team (Late st Contact Info) Description 01/10/2025 11:23 AM EST - 01/10/2025 4:50 PM EST Emergency [facility] Emergency [address] [place] [address] Cristian Ramsey MD [address] [address] Hyperglycemia (Primary Dx); Balanoposthitis Discharge Disposition: Home [...] be sent through Care Everywhere. * Balanitis (Montserratian) documented in this encounter Medications at Time of Discharge oxyCODONE (OXY-IR) 5 mg immediate release capsule Take 1 capsule (5 mg total) by mouth every 6 (six) hours if needed for severe pain. Max Daily Amount: 20 mg 15 capsule 10/03/2024 cephalexin (KEFLEX) 500 mg capsule Take 1 capsule (500 mg total) by mouth 4 (four) times a day for 7 days. 28 each 01/10/2025 clotrimazole (LOTRIMIN) 1 % cream Apply topically 2 (two) times a day for 7 days. Apply to affected area 2 times daily 15 g 01/10/2025 documented as of this encounter Ordered Prescriptions Prescription Sig Dispense Quantity Refills Last Filled Start Date End Date clotrimazole (LOTRIMIN) 1 % cream Apply topically 2 (two) times a day for 7 days. Apply to affected area 2 times daily 15 g 01/10/2025 cephalexin (KEFLEX) 500 mg capsule Take 1 capsule (500 mg total) by mouth 4 (four) times a day for 7 days. 28 each 01/10/2025 documented in this encounter Discharge Disposition Disposition [...] Procedure Abnormality Status --------- ------ CBC auto differential[[id number]] Abnormal Final result Please view results for these tests on the individual orders. COMPREHENSIVE METABOLIC PANEL URINALYSIS WITH REFLEX MICROSCOPIC AND CULTURE Narrative: The following orders were created for panel order Urinalysis with reflex microscopic and culture. Procedure Abnormality Status --------- ------ Urinalysis with reflex ...[[id number]] Recinos urine culture tube[[id number]] Please view results for these tests on [...] - 100 mg/dL 01/10/2025 4:25 PM EST [facility] Blood Capillary blood specimen / Unknown 01/10/2025 4:24 PM EST 01/10/2025 4:26 PM EST Cristian Ramsey MD LAB POINT OF CARE T EST DOCKED DEVICE UNSOLICITED RESULTS Final Result [facility] [address] [place] [address], [place] [phone] * (ABNORMAL) POCT Glucose, blood (01/10/2025 3:38 PM EST) Glucose POCT 161(H) 70 - 100 mg/dL 01/10/2025 3:39 PM EST [facility] Blood Capillary blood specimen / Unknown 01/10/2025 3:38 PM EST 01/10/2025 3:40 PM EST Cristian Ramsey MD LAB POINT OF CARE T EST DOCKED DEVICE UNSOLICITED RESULTS Final Result [facility] [address] [place] [address], [place] [phone] * CT Abdomen Pelvis w Contrast (01/10/2025 [...] Signed Date: 01/10/2025 14:28 ET Workstation ID: [id number] Transcribed By: Self Edit Transcribed Date: 01/10/2025 [...] Signed Date: 01/10/2025 14:28 ET Workstation ID: [id number] Transcribed By: Self Edit Transcribed Date: 01/10/2025 14:20 ET [place] [facility] IMG CT PROCEDURES Final Resu lt * Recinos urine culture tube (01/10/2025 12:49 PM EST) Pathologist [facility] Extra Tube Hold for add-ons. 01/10/2025 2:01 PM EST [facility] Comment:Auto resulted. Urine Urine specimen obtained by clean catch procedure / Unknown Non-blood Collection / Unknown 01/10/2025 12:49 PM EST 01/10/2025 12:57 PM EST [facility] URINE ORDERABLES Final R esult [facility] [address] [place] [address], [place] [phone] * (ABNORMAL) Urinalysis with reflex microscopic and culture (01/10/2025 12:49 PM EST) [facility] Specific [place] Urine 1.025 1.003 - 1.030 LAB URINALYSIS - AUTOMATED METHOD 01/10/2025 1:11 PM [facility] pH, Urine 5.5 5.0 - 8.0 pH LAB URINALYSIS - AUTOMATED METHOD 01/10/2025 1:11 PM [facility] Leukocytes, Urine Negative Negative LAB URINALYSIS - AUTOMATED METHOD 01/10/2025 1:11 PM EST [facility] Nitrite, Urine Negative Negative LAB URINALYSIS - AUTOMATED METHOD 01/10/2025 1:11 PM [facility] Protein, Urine Negative <=Trace mg/dL LAB URINALYSIS - AUTOMATED METHOD 01/10/2025 1:11 PM [facility] Glucose, Urine >=1000(A) Negative mg/dL LAB URINALYSIS - AUTOMATED METHOD 01/10/2025 1:11 PM [facility] Ketones, Urine Negative Negative mg/dL LAB URINALYSIS - AUTOMATED METHOD 01/10/2025 1:11 PM [facility] Urobilinogen , Urine 0.2 0.2 - 1.0 mg/dL LAB URINALYSIS - AUTOMATED METHOD 01/10/2025 1:11 PM [facility] Bilirubin, Urine Negative Negative LAB URINALYSIS - AUTOMATED METHOD 01/10/2025 1:11 PM [facility] Blood, Urine Negative Negative LAB URINALYSIS - AUTOMATED METHOD 01/10/2025 1:11 PM [facility] Urine Urine specimen obtained by clean catch procedure / Unknown Non-blood Collection / Unknown 01/10/2025 12:49 PM EST 01/10/2025 12:57 PM EST us [facility] URINE ORDERABLES Final R esult [facility] [address] [place] [address], * (ABNORMAL) CBC auto differential (01/10/2025 12:12 PM EST) WBC 6.0 4.8 - 10.8 K/mcL LAB HEMETOLOGY METHOD 01/10/2025 12:34 PM [facility] RBC 4.40(L) 4.50 - 5.50 M/[facility] LAB HEMETOLOGY METHOD 01/10/2025 12:34 PM [facility] Hemoglobin 12.5(L) 13.5 - 17.5 g/dL LAB HEMETOLOGY METHOD 01/10/2025 12:34 PM [facility] Hematocrit 36.5(L) 42.0 - 54.0 % LAB HEMETOLOGY METHOD 01/10/2025 12:34 PM [facility] MCV 82.6 79.0 - 98.0 FL LAB HEMETOLOGY METHOD 01/10/2025 12:34 PM [facility] MCH 28.3 27.0 - 32.0 pcg LAB HEMETOLOGY METHOD 01/10/2025 12:34 PM [facility] MCHC 34.2 32.0 - 37.0 g/dL LAB HEMETOLOGY METHOD 01/10/2025 12:34 PM [facility] RDW 12.9 11.0 - 15.0 % LAB HEMETOLOGY METHOD 01/10/2025 12:34 PM [facility] Platelets 155 130 - 400 K/mcL LAB HEMETOLOGY METHOD 01/10/2025 12:34 PM [facility] MPV 11.9(H) 7.0 - 11.0 FL LAB HEMETOLOGY METHOD 01/10/2025 12:34 PM [facility] NRBC 0.0 <1.0 % LAB HEMETOLOGY METHOD 01/10/2025 12:34 PM [facility] NRBC Absolute 0.00 <0.10 K/mcL LAB HEMETOLOGY METHOD 01/10/2025 12:34 PM [facility] Neutrophils Relative 51.9 % LAB HEMETOLOGY METHOD 01/10/2025 12:34 PM [facility] Lymphocytes Relative 36.3 % LAB HEMETOLOGY METHOD 01/10/2025 12:34 PM [facility] Monocytes Relative 6.0 % LAB HEMETOLOGY METHOD 01/10/2025 12:34 PM EST [facility] Eosinophils Relative 3.8 % LAB HEMETOLOGY METHOD 01/10/2025 12:34 PM [facility] Basophils Relative 1.3 % LAB HEMETOLOGY METHOD 01/10/2025 12:34 PM [facility] Immature Granulocytes Relative 0.7 % LAB HEMETOLOGY METHOD 01/10/2025 12:34 PM [facility] Neutrophils Absolute 3.14 1.50 - 7.00 K/mcL LAB HEMETOLOGY METHOD 01/10/2025 12:34 PM [facility] Lymphocytes Absolute 2.19 1.00 - 5.00 K/mcL LAB HEMETOLOGY METHOD 01/10/2025 12:34 PM [facility] Monocytes Absolute 0.36 0.20 - 1.00 K/mcL LAB HEMETOLOGY METHOD 01/10/2025 12:34 PM EST [facility] Eosinophils Absolute 0.23 0.00 - 0.50 K/mcL LAB HEMETOLOGY METHOD 01/10/2025 12:34 PM [facility] Basophils Absolute 0.08 0.00 - 0.20 K/mcL LAB HEMETOLOGY METHOD 01/10/2025 12:34 PM [facility] Immature Granulocytes Absolute 0.04(H) 0.00 - 0.03 K/mcL LAB HEMETOLOGY METHOD 01/10/2025 12:34 PM [facility] Blood Venous blood specimen / Unknown Venipuncture / Unknown 01/10/2025 12:12 PM EST 01/10/2025 12:16 PM EST us [facility] BLOOD ORDERABLES Final R esult [facility] [address] [place] [address], * (ABNORMAL) Comprehensive metabolic panel (01/10/2025 12:12 PM EST) Sodium 135 133 - 145 mmol/L LAB CHEMISTRY METHOD 01/10/2025 1:05 PM [facility] Potassium 4.1 3.5 - 5.5 mmol/L LAB CHEMISTRY METHOD 01/10/2025 1:05 PM [facility] Chloride 105 96 - 110 mmol/L LAB CHEMISTRY METHOD 01/10/2025 1:05 PM [facility] CO2 24 21 - 32 mmol/L LAB CHEMISTRY METHOD 01/10/2025 1:05 PM [facility] Anion Gap 6 3 - 11 LAB CHEMISTRY METHOD 01/10/2025 1:05 PM [facility] Glucose 382(H) 70 - 100 mg/dL LAB CHEMISTRY METHOD 01/10/2025 1:05 PM [facility] BUN 14 5 - 25 mg/dL LAB CHEMISTRY METHOD 01/10/2025 1:05 PM [facility] Creatinine 1.19 0.70 - 1.30 mg/dL LAB CHEMISTRY METHOD 01/10/2025 1:05 PM [facility] eGFR 69 >=60 mL/min/1. 73m2 LAB CHEMISTRY METHOD 01/10/2025 1:05 PM [facility] Comment:Calculation based on the??Chronic Kidney Disease Epidemiology Collaboration (CKD-EPI) equation refit??without adjustment for race. BUN/Creatinine Ratio 11.8 LAB CHEMISTRY METHOD 01/10/2025 1:05 PM [facility] Calcium 8.7 8.5 - 10.5 mg/dL LAB CHEMISTRY METHOD 01/10/2025 1:05 PM [facility] AST (SGOT) 13 10 - 42 unit/L LAB CHEMISTRY METHOD 01/10/2025 1:05 PM [facility] ALT (SGPT) 33 10 - 60 unit/L LAB CHEMISTRY METHOD 01/10/2025 1:05 PM EST [facility] Alkaline Phosphatase 151(H) 42 - 121 unit/L LAB CHEMISTRY METHOD 01/10/2025 1:05 PM EST [facility] Total Protein 7.1 6.0 - 8.0 g/dL LAB CHEMISTRY METHOD 01/10/2025 1:05 PM EST [facility] Albumin 3.9 3.2 - 5.0 g/dL LAB CHEMISTRY METHOD 01/10/2025 1:05 PM EST [facility] Total Bilirubin 0.7 0.0 - 1.4 mg/dL LAB CHEMISTRY METHOD 01/10/2025 1:05 PM [facility] Blood Venous blood specimen / Unknown Venipuncture / Unknown 01/10/2025 12:12 PM EST 01/10/2025 12:16 PM EST [facility] BLOOD ORDERABLES Final R esult [facility] [address] [place] [address], documented in this encounter Visit Diagnoses Diagnosis [...] Mirlande Dorantes RN)[id number] (Stopped - Provider: Mirlande Dorantes RN) sodium chloride 0.9 % flush 10 mL (COMPLETED) 10 mL, intravenous, Once, On 01/10/25 at 1406, For 1 dose 1405 (Given - Provid er: Susanne Curry) documented in this encounter Care Teams Electrical Prospecting Observer Relationship Specialty Start Date End Date Cesilia Alston NP [address] [place] [phone] PCP - General 10/03/24 documented as of this encounter
--- OUTSIDE RECORDS SUMMARY | 2025-02-06 14:03 | XMS_ITS | Encounter Summary ---
Author Organization [employer] Address [address] [facility] [address] [place] [address] Care Team Providers Care Gamma Facilities Operator Name Role Phone Cesilia Alston Primary Care Provider [phone] Reason for Visit * Reason Comments Med Refill Encounter Details Date Type Department Care Team ([facility] Contact Info) Description 07/25/2024 Refill [facility] [address] [place], [place] [phone] Ryann Watson MD [address] [place] [address] Social History Tobacco Use Types Packs/Day Years [...] Care Team (Late st Contact Info) Description 02/10/2025 1:00 PM EDT Clinical Support [address] [address] 02/13/2025 2:00 PM EDT Medication Management [address] [address] Lor Goldstein PharmD [address] [place] [phone] 04/29/2025 3:45 PM EDT Office Visit [address] [address] Cesilia Alston ANP [address] [place] [phone] documented as of this encounter Goals Goal Patient Goal Type Associated Problems Recent Progress Patient-Stated? Author Take your medication every day Lifestyle No Shannan Rojas, RachelD documented as of this encounter Visit Diagnoses Not on filedocumented in this encounter Care Teams Gamma Facilities Operator Relationship Specialty Start Date End Date Cesilia Alston ANP [address] [place] [phone] PCP - General Family Medicine 10/24/23 documented as of this encounter
--- OUTSIDE RECORDS SUMMARY | 2025-02-06 14:03 | XMS_ITS | Encounter Summary ---
Author Organization [employer] Address [address] [facility] 7t [place] [address] Care Team Providers Care Bowling Alley Floors Installer Name Role Phone Randall Philomena PHILLIPS Primary Care Provider [phone] Ritika Marsh MD Primary Care Pro vider Cesilia Alston Primary Care Provider [phone] Encounter Details Date Type Department Care Team (Late st Contact Info) Description 12/04/2022 Orders Only [facility] [address] [place] [address] Samantha Cast LPN Social History Tobacco Use [...] Description 02/10/2025 1:00 PM EDT Clinical Support [facility] [address] [place] [phone] 02/13/2025 2:00 PM EDT Medication Management [facility] [address] [place] [phone] Lor Goldstein, PharmD [address] [place], [place] [phone] 04/29/2025 3:45 PM EDT Office Visit [facility] [address] [place] [address] Cesilia Alston ANP [address] [place] [address] documented as of this encounter Visit Diagnoses Not on filedocumented in this encounter Care Teams Bowling Alley Floors Installer Relationship Specialty Start Date End Date Philomena Pereira FNP PCP - General Family Medicine 10/16/22 05/31/23 Ritika Marsh MD [address] [place] [phone] PCP - General Internal Medicine 06/01/23 10/23/23 Cesilia Alston ANP [address] [place] [address] PCP - General Family Medicine 10/24/23 documented as of this encounter
--- OUTSIDE RECORDS SUMMARY | 2025-02-06 14:03 | XMS_ITS | Encounter Summary ---
Author Organization [employer] Address [address] [facility] [address] [place] [address] Care Team Providers Care Chart Snatcher Name Role Phone Philomena Pereira DISTRIBUTION SYSTEMS SUPERINTENDENT Primary Care Provider [phone] Ritika Marsh MD Primary Care Pro vider Cesilia Alston Primary Care Provider [phone] Encounter Details Date Type Department Care Team (Late st Contact Info) Description 01/08/2023 Abstract [facility] [address] [place] [phone] Philomena Pereira FNP [address] [place] [address] [place] [address] Social History Tobacco Use Types Packs/Day Years [...] Description 02/10/2025 1:00 PM EDT Clinical Support [address] [address] 02/13/2025 2:00 PM EDT Medication Management [address] [address] Lor Goldstein, RachelD [address] [place] [address] 04/29/2025 3:45 PM EDT Office Visit [facility] [address] [place] [phone] Cesilia Alston ANP [address] [place] [phone] documented as of this encounter Visit Diagnoses Not on filedocumented in this encounter Care Teams Chart Snatcher Relationship Specialty Start Date End Date Philomena Pereira FNP PCP - General Family Medicine 10/16/22 05/31/23 Ritika Marsh MD [address] [place] [address] PCP - General Internal Medicine 06/01/23 10/23/23 Cesilia Alston ANP [address] [place] [phone] PCP - General Family Medicine 10/24/23 documented as of this encounter
--- OUTSIDE RECORDS SUMMARY | 2025-02-06 14:04 | XMS_ITS | Clinical Summary ---
Author Organization [employer] Address [address] [facility] [address] 7[address] [place] [address] Care Team Providers Care Director Of Player Personnel Name Role Phone Gamaliel Cesilia MALONE Primary Care Provider [phone] Allergies No known active allergies Medications * This document contains information received from the source organization and may not represent a complete record from that organization. gabapentin (Neurontin) 800 MG tabletIndications :Neuropathy TAKE 1 TABLET BY MOUTH UP TO THREE TIMES DAILY 90 tablet 3 05/01/20 23 Active albuterol (2.5 MG/3ML) 0.083% nebulizer solution INHALE 2.5 MG (3 ML) EVERY 4 HOURS NEEDED FOR SHORTNESS OF BREATH OR FOR WHEEZE 09/11/20 23 Active albuterol 108 (90 Base) MCG/ACT inhaler INHALE 2 PUFFS BY MOUTH EVERY 4 HOURS NEEDED FOR BRONCHOSPASM 09/11/20 23 Active DULoxetine (Cymbalta) [address] capsule TAKE 1 CAPSULE BY MOUTH TWICE A DAY 11/18/20 23 Active prazosin (Minipress) 5 MG capsule 1 in the morning, 2 at night 11/26/19 24 Active QUEtiapine (SEROquel) 200 MG tablet TAKE 1 TABLET BY MOUTH EVERYDAY AT BEDTIME 11/05/20 23 Active QUEtiapine (SEROquel) 50 MG tablet TAKE 1 TABLET BY MOUTH TWICE A DAY NEEDED 11/17/20 23 Active triamcinolone (Kenalog) 0.1 % cream Apply topically if needed in the morning and at bedtime (pain and swelling). 30 g 2 03/25/20 24 Active FREESTYLE LITE test stripIndications: Type 2 diabetes mellitus with hyperlipidemia (CMS/HCC) (CMS/[facility]) Use to check blood sugar TID or more as needed 100 each 05/05/20 Active atorvastatin (Lipitor) 80 MG tabletIndications :Type 2 diabetes mellitus with hyperlipidemia (CMS/HCC) ([facility]) Take 1 tablet (80 mg) by mouth at bedtime. 30 tablet 11 05/05/20 24 2024 Active gabapentin (Neurontin) 300 MG capsuleIndication s:Diabetic polyneuropathy associated with type 2 diabetes mellitus ([facility]/HCC) Take 1 capsule at bedtime with 800mg tablet 30 capsule 05/05/20 Active aspirin 81 MG EC tabletIndications :Type 2 diabetes mellitus with hyperlipidemia (CMS/HCC) ([facility]) Take 1 tablet (81 mg) by mouth Once per day. 90 tablet 3 05/05/20 24 2024 Active Continuous Glucose Student Affairs Vice President (FreeStyle Corry 2 Spencer) deviceIndications :Type 2 diabetes mellitus with hyperlipidemia (CMS/HCC) ([facility]) Use as directed to monitor glucose ever 8 hours. 1 each 05/23/20 Active Continuous Glucose Sensor (FreeStyle Corry 2 Sensor) miscIndications:T ype 2 diabetes mellitus with hyperlipidemia (CMS/HCC) ([facility]) Use as directed to monitor glucose ever 8 hours. Replace sensor every 14 days. 2 each 05/23/20 Active glucose blood (FreeStyle Precision Jim Test) test strip Test blood sugar q 8 hours 100 each 05/23/20 Active ARIPiprazole (Abilify) 5 MG tablet 09/15/20 Active busPIRone (Buspar) 10 MG tablet 09/15/20 Active clonazePAM (KlonoPIN) 0.5 MG disintegrating tablet 08/05/20 Active chlorhexidine (Peridex) 0.12 % solution Swish 15 mL morning and night for 1 minute. Spit, do not swallow. Do not eat or drink for 30 minutes following use. 473 mL 10/06/20 Active insulin glargine (Lantus SoloStar) 100 UNIT/ML penIndications:Ty pe 2 diabetes mellitus with hyperlipidemia (CMS/HCC) ([facility]) Inject 30 Units under the skin Once daily. 30 mL 2 10/21/20 24 2024 Active meloxicam (Mobic) 7.5 MG tabletIndications :Neuropathy Take 1 tab once or twice daily if needed for pain 30 tablet 2 10/21/20 Active clotrimazole (Antifungal, Clotrimazole,) 1 % creamIndications: Tinea pedis of both feet Apply topically 2 times daily. To feet 60 g 10/21/20 Active TRUEplus Lancets 33G miscIndications:T ype 2 diabetes mellitus with hyperlipidemia (CMS/HCC) ([facility]) Use TID or more as needed to check BG 100 each 11 10/21/20 Active pen needle 31G x 5 mm miscIndications:T ype 2 diabetes mellitus with hyperlipidemia (CMS/HCC) ([facility]) Use as instructed with lantus pen 100 each 12 11/11/20 24 2024 Active Trulicity 3 MG/0.5ML solution auto-injectorIndi cations:Type 2 diabetes mellitus with hyperlipidemia (CMS/HCC) ([facility]) INJECT 3 MG SUBCUTANEOUSLY ONCE A WEEK 2 mL 2 11/25/20 24 Active nicotine polacrilex (Nicorette) 4 MG gumIndications:Ci garette nicotine dependence without complication Chew 1 piece every 1-2 hours as needed in place of cigarette. 100 each 5 12/16/19 25 Active nicotine (Nicoderm CQ) 14 MG/24HR patchIndications: Cigarette nicotine dependence without complication Place 1 patch on the skin 1 (one) time each day at the same time. 42 patch 12/16/19 Active Trelegy Ellipta 100-62.5-25 MCG/ACT aerosol powderIndications :Asthma with acute exacerbation, unspecified asthma severity, unspecified whether persistent Inhale 1 Inhalation Once daily. 28 each 2 12/16/19 25 Active acetaminophen (Tylenol) 500 MG tablet Take 2 tablets (1,000 mg) by mouth every 6 (six) hours if needed for moderate pain or fever for up to 25 doses. 30 tablet 01/13/20 25 Active azithromycin (Zithromax) 250 MG tabletIndications :COPD exacerbation ([facility]) On day 1 take 2 tablets once, then take 1 tablet once daily days 2 - 5 6 tablet 12/16/19 25 2024 Discontin ued(Thera py completed ) sulfamethoxazole- trimethoprim (Bactrim DS) 800-160 MG tablet Take 1 tablet by mouth 2 times daily for 14 days. 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 to greenhouse staff Foot pain, bilateral 05/23/2024 Non compliance w [...] Encounters Date Type Department Care Team Description 01/28/[address] [address] Lana Brown, RN RN DSMES F/U 01/27/2025 1:00 PM EST Office Visit [address] [address] Cesilia Alston ANP Type 2 diabetes mellitus with hyperlipidemia (CMS/HCC) (CMS/HCC) (Primary Dx); Pain in both lower extremities; Balanitis; Dietary counseling; Exercise counseling 01/27/2025 Travel 01/26/[address] [phone] Cesilia Alston ANP Chart Prep 01/20/2025 Patient Outreach [address] [address] eCsilia Alston ANP Care Coordination (CHW outreach for SDOH housing search-referral completed ) 01/20/2025 Patient Outreach [address] [phone] Cesilia Alston ANP Pre-visit Planning (SDOH Screening positive and Tobacco screening negative) 01/19/2025 Telephone [facility] [address] [place] [phone] Cesilia Alston ANP Medication Question 01/13/2025 9:40 AM EST Office Visit [facility] [address] [place] [phone] Yossi Mauricio MD Pelvic pain (Primary Dx); Dysuria 01/13/2025 Telephone [facility] [address] [place] [phone] Susanne Francisco RN 01/12/2025 Refill [facility] [address] [place] [address] Cesilia Alston ANP Cigarette nicotine dependence without complication 12/18/[address] [address] Susanne Francisco RN Results 12/16/2024 1:00 PM EST Office Visit [facility] [address] [place] [phone] Cesilia Alston ANP Acute cough (Primary Dx); Thyroid nodule greater than or equal to 1.5 cm in diameter incidentally noted on imaging study; Asthma with acute exacerbation, unspecified asthma severity, unspecified whether persistent; COPD exacerbation (CMS/[facility]) 12/16/2024 Travel 12/16/2024 Refill [facility] [address] [place] [phone] Cesilia Alston ANP Cigarette nicotine dependence without complication (Primary Dx) 12/16/[address] [address] Cesilia Alston ANP Nurse Triage 12/05/2024 Telephone [facility] [address] [place] [phone] Cesilia Alston ANP 12/05/[address] [address] Elise Soto [place] March recall 11/24/2024 Refill [facility] [address] [place], [place] [phone] Cesilia Alston ANP Type 2 diabetes mellitus with hyperlipidemia (CMS/HCC) (CMS/[facility]) 11/11/2024 Refill [facility] [address] [place] [address] Cesilia Alston ANP Type 2 diabetes mellitus with hyperlipidemia ([facility]) ([facility]) from Last 3 Months Immunizations Name Administration [...] with others, in a hotel, in a senior care, living outside on the street, on a beach, in a car, or in a park 01/20/[address] you li ve. Do you have problems with any of the following? None of the above 01/20/2025 Food Insecurity Answer Date Recorded Within the [...] Recorded Patient Health Questionnaire-2 Score 0 10/21/2024 Internet Access Answer Date Recorded Internet Access Q1 Yes 01/20/2025 Internet Access Q2 Not on file 01/20/2025 Sex and Gender Information Value Date Recorded Sex Assigned at Male 09/25/2022 10:17 AM EDT Legal Sex Male 10:17 AM EDT Gender Identity Male 09/25/2022 10:17 AM EDT Sexual Orientation Don't know 09/25/2022 10 :17 AM EDT Last Filed Vital Signs Vital Sign Reading Time Taken Comments Blood Pressure 113/72 01/27/2025 1:17 PM EST Pulse 108 01/27/2025 1:17 PM EST Temperature 36.6 ??C (97.9 ??F) 01/27/2025 1:17 PM ES T Respiratory Rate 16 01/27/2025 1:17 PM EST Oxygen Saturation 96% 01/27/2025 1:17 PM EST Inhaled Oxygen Concentration - - Weight 108 kg (238 lb) 01/27/2025 1:17 PM EST Height 182.9 cm (6') 07/18/2024 8:54 AM EDT Body Mass Index 32.28 07/18/2024 8:54 AM EDT Plan of Treatment Upcoming Encounters Date Type Department Care Team (Late st Contact Info) Description 02/10/2025 1:00 PM EDT Clinical Support [facility] [address] [place] [phone] 02/13/2025 2:00 PM EDT Medication Management [facility] [address] [place] [phone] Lor Goldstein, PharmD [address] [place] [address] 04/29/2025 3:45 PM EDT Office Visit [facility] [address] [place] [phone] Cesilia Alston, ANP [address] [place] [address] Health Maintenance Due Date Last Done Comments CT Colonography 1961 Colonoscopy 1961 Colorectal Cancer Screening 1961 Dental X-Ray: Bitewings 1961 FIT DNA/Cologuard 1961 FIT 1961 FOBT 1961 Sigmoidoscopy 1961 Diabetes: Foot Exam 1971 Eye Exam 1971 Hepatitis C Screening 1979 Dental Prophylaxis 09/25/2009 03/25/2009 Dental Oral Exam 11/04/2009 05/04/2009 Diabetes: Urine Protein Screening 01/25/2021 01/26/2020 RSV Patients and Patients Aged 60 years or older (1 - Risk 60-74 years 1-dose series) 2021 Zoster Vaccines (2 of 2) 02/18/2024 12/24/2023 COVID-19 Vaccine (3 - 2023- season) 2024 04/28/2021, 03/31/2021 Influenza Vaccine (#1) 2024 09/16/2010 Lipid Panel 01/15/2025 01/15/2024 Diabetes: Hemoglobin A1C 04/29/2025 025, 10/21/2024, 07/18/2024, Additional history exists Depression Screening 10/21/2025 10/21/2024, 10/21/20 SDOH Screening 01/20/2026 01/20/2025 Alcohol/Substance Use Screening 01/27/2026 01/27/2025 Tobacco Screening 01/27/2026 01/27/2025 Dental X-Ray: Full Mouth 10/07/2027 10/06/2024 DTaP/Tdap/Td Vaccines (2 - Td or Tdap) 12/24/2033 12/24/2023 HIV Screening Completed 01/26/2020 Pneumococcal Vaccine: 50+ Years Completed 12/06/2023, 01/08/2013 HIB Vaccines Aged Out No longer eligi ble based on patient's age to complete this topic HPV Vaccines Aged Out No longer eligi ble based on patient's age to complete this topic Hepatitis A Vaccines Aged Out No long er eligible [...] your medication every day Lifestyle No Shannan Rojas PharmD Procedures Procedure Name Priority Date/Time Associated Diagnosis Comments POCT GLYCATED HEMOGLOBIN, TOTAL Routine 01/27/2025 1:21 PM EST Type 2 diabetes mellitus with hyperlipidemia ([facility]/HCC) ([facility]) POCT GLUCOSE Routine 01/27/2025 1:16 PM EST Type 2 diabetes mellitus with hyperlipidemia ([facility]/HCC) ([facility]) CHLAMYDIA/N. GONORRHOEAE RNA, TMA, UROGENITAL Routine 01/13/2025 10:30 AM EST Dysuria CULTURE, URINE, ROUTINE Routine 01/13/2025 10:30 AM EST Pelvic pain Dysuria POCT COVID-19 AG MEMBRENO ID NOW Routine 12/16/2024 1:00 PM EST Acute cough PANORAMIC RADIOGRAPHIC IMAGE Routine 10/06/2024 1:00 PM [...] Recently Relevant to Health Maintenance Results * (ABNORMAL) POCT HGB A1C (01/27/2025 1:21 PM EST) Hemoglobin A1C 10.0(A) 4.0 - 6.0 % QC Media Lot # [id number] Lot# Expiration Date Blood 01/27/2025 1:21 PM EST us Cesilia Alston ANP POINT OF CARE TEST ENTER/EDIT OR DERABLES Final Result * (ABNORMAL) POCT Glucose (01/27/2025 1:16 PM EST) Pathologist [facility] Glucose Blood, POC 378(A) 60 - 200 mg/dL QC Media Lot # [id number] Lot# Expiration Date ,674 Blood Capillary blood specimen / Unknown 01/27/2025 1:16 PM EST [facility] ANP POINT OF CARE TEST ENTER/EDIT OR DERABLES Final Result * Chlamydia/N. Gonorrhoeae RNA, TMA, Urogenitial (01/13/2025 10:30 AM EST) [facility] CT PCR NOT DETECTED Not Detect. [facility] Comment:A not detected test result does not exclude the possibilityof infection because test results can be affected byimproper specimen collection, concurrent antibiotic therapy,or the number of organisms in the specimen which may bebelow the sensitivity of the test. As with many diagnostictests, results from the Xpert CT/NG assay should beinterpreted in conjunction with other laboratory andclinical data available to the clinician.Xpert CT/NG performance has not been evaluated in patientsless than 14 years of age. The assay should not be used forthe evaluationof suspected sexual abuse or for other medico-legalindications. Additional testing is recommended in anycircumstance when false positive or false negative resultscould lead to adverse medical, social or psychologicalconsequences. NG PCR NOT DETECTED Not Detect. [facility] Comment:A not detected test result does not exclude the possibilityof infection because test results can be affected byimproper specimen collection, concurrent antibiotic therapy,or the number of organisms in the specimen which may bebelow the sensitivity of the test. As with many diagnostictests, results from the Xpert CT/NG assay should beinterpreted in conjunction with other laboratory andclinical data available to the clinician.Xpert CT/NG performance has not been evaluated in patientsless than 14 years of age. The assay should not be used forthe evaluationof suspected sexual abuse or for other medico-legalindications. Additional testing is recommended in anycircumstance when false positive or false negative resultscould lead to adverse medical, social or psychologicalconsequences. Urine (Urine, Random) 01/13/2025 10:30 AM EST 01/13/2025 4:06 PM EST Narrative [facility] - 01/13/2025 5:58 PM EST Urine Yossi Mauricio MD LAB MICROBIOLOGY - GENERAL ORDER KIARRA Final Result Performing Organization Address City/[facility]/ZIP Co de Phone Number [facility] [address] [place] [phone] * Culture, Urine, Routine (01/13/2025 10:30 AM EST) Urine Urine specimen obtained by clean catch procedure / Unknown 01/13/2025 10:30 AM EST 01/13/2025 4:06 PM EST Comment:UACC Narrative [facility] - 01/15/2025 10:39 AM EST Urine Culture No growth. Specimen Source: Urine clean catch Yossi Mauricio MD LAB MICROBIOLOGY - GENERAL ORDER KIARRA Final Result Performing Organization Address City/[facility]/ZIP Co de Phone Number [facility] [address] [place] [phone] * POCT Rapid Covid-19 MEMBRENO ID NOW (12/16/2024 1:00 PM EST) Swab 12/16/2024 1:00 PM EST [facility] POINT OF CARE TEST ENTER/EDIT OR DERABLES Final Result * (ABNORMAL) Lipid Panel, Standard (01/15/2024 12:27 PM EST) Triglycerides 212(H) <150 mg/dL [facility] Comment:Desirable Triglyceri de: less than 150 mg/dLBorderline High Triglyceride 150-199 mg/dLHigh Triglyceride: 200-499 mg/dLVery High Triglyceride: greater than or equal to 5OO mg/dL Cholesterol 332(H) <200 mg/dL [facility] Comment:Desirable Cholestero l: less than 200 mg/dLBorderline High Cholesterol: 200-239 mg/dLHigh Cholesterol: greater than 239 mg/dL LDL Cholesterol Calculated 241(H) <100 mg/dL [facility] Comment:Desirable LDL: less than 100 mg/dLNear Optimal/Above Optimal LDL: 110- 129 mg/dLBorderline High LDL: 130-159 mg/dLHigh LDL: 160-189 mg/dLVery High LDL: greater than or equal to 190 mg/dL HDL Cholesterol 49 >40 mg/dL [facility] Comment:Desirable HDL: great er than 40 mg/dL Note: This HDL assay may give artificially low results in patients with liver disease. 01/15/2024 12:2 7 PM EST 01/15/2024 1:09 PM EST us Cesilia MALONE LAB BLOOD ORDERABLES Final Resul t Performing Organization Address [facility] de Phone Number [facility] [address] [place] [phone] * HIV AB/AG (01/26/2020 11:06 AM EST) Pathologist [facility] HIV AG/AB NONREACTIVE NR [facility] [...] detection of this assay. ?? The Membreno Ironer Sock HIV Ag/Ab Combo assay result and supplemental assay results should be interpreted in conjunction with the patient's clinical presentation, history and other laboratory results. ??If the results are inconsistent with clinical evidence, additional testing is suggested to confirm the result. 01/26/2020 11:0 6 AM EST Cy Ruano MD HISTORICAL/NON ORDERABLE LAB S Final Result Performing Organization Address [facility]/ZIP Co de Phone Number [facility] [address] [place] [address] * MICROALBUMIN, RANDOM (01/26/2020 11:05 AM EST) CREATININE, RANDOM URINE 97.32 MG/DL [facility] MICALB/CRE RATIO RANDOM URINE 6.1 ug/mg cr [facility] Comment: ?Albumin/Creatinine Ratio Reference Ranges: ? Normal: < 30 ug/mg creatinine ? Microalbuminuria: ??30 - 300 ug/mg creatinine Clinical Albuminuria: ??> 300 ug/mg creatinine MICROALBUMIN, RANDOM URINE 6.0 MG/L [facility] 01/26/2020 11:0 5 AM EST us Cy Ruano MD HISTORICAL/NON ORDERABLE LAB S Final Result Performing Organization Address [facility] de Phone Number [facility] [address] [place] [address] from Last 3 Months or Most Recently Relevant to Health Maintenance Insurance [facility] - [facility] Care Teams Director Of Player Personnel Relationship Specialty Start Date End Date Cesilia Alston ANP [address] [place] [address] [phone] PCP - General Family Medicine 10/24/23
--- OUTSIDE RECORDS SUMMARY | 2025-02-06 14:04 | XMS_ITS | Encounter Summary ---
Author Organization [employer] Address [address] [facility] 7t [place] [address] Care Team Providers Care Plastics Supervisor Name Role Phone Cesilia Alston Primary Care Provider [phone] Reason for Visit * Reason Onset Date Comments KEN ESCALANTE F/U 01/28/2025 Encounter Details Date Type Department Care Team ([facility] st Contact Info) Description 01/28/2025 Telephone [facility] [address] [place] [address] Lana Brown RN [address] [place] [address] KEN ESCALANTE F/U Social History Tobacco Use Types Packs/Day Years [...] with others, in a hotel, in a penitentiary, living outside on the street, on a [...] encounter Miscellaneous Notes * Telephone Encounter - Lana Brown RN - 01/28/2025 9:47 AM EST Telephone call placed to pt to book appt as requested below. Booked for 02/10 with [place] nurses. Mailed appt reminder. Advised he call if he needs anything prior to that appt. Pt verbalized understanding and denied having any further questions or concerns at this time. * Telephone Encounter - Lana Brown RN - 01/28/2025 9:46 AM EST ----- Message from Cesilia Alston sent at 01/27/2025 1:35 PM EST ----- Please schedule f/u w/ pt for CGM upload again in 2-3 weeks. Thank you! documented in this encounter Plan of Treatment Upcoming Encounters Date Type Department Care Team (Late st Contact Info) Description 02/10/2025 1:00 PM EDT Clinical Support [address] [phone] 02/13/2025 2:00 PM EDT Medication Management [facility] [address] [place] [phone] Lor Goldstein, RachelD [address] [place] [phone] 04/29/2025 3:45 PM EDT Office Visit [facility] [address] [place] [phone] Cesilia Alston ANP [address] [place] [phone] documented as of this encounter Goals Goal Patient Goal Type Associated Problems Recent Progress Patient-Stated? Author Take your medication every day Lifestyle No Shannan Rojas, RachelD documented as of this encounter Visit Diagnoses Not on filedocumented in this encounter Additional Health Concerns Assessment Noted Time PHQ-9 Depression Total Score: 0 10/21/20 24 10:30 AM EST documented as of this encounter Care Teams Plastics Supervisor Relationship Specialty Start Date End Date Cesilia Alston ANP [address] [place] [phone] PCP - General Family Medicine 10/24/23 documented as of this encounter
--- OUTSIDE RECORDS SUMMARY | 2025-02-06 14:04 | XMS_ITS | Encounter Summary ---
Author Organization [employer] Address [address] [facility] [address] [place] [address] Care Team Providers Care C Architect Name Role Phone Cesilia Alston Primary Care Provider [phone] Reason for Visit * Reason Onset Date Comments FYI 10/03/2024 Encounter Details Date Type Department Care Team ([facility] st Contact Info) Description 10/03/2024 Telephone [facility] [address] [place], [place] [phone] Cesilia Alston ANP [address] [place], [place] [phone] FYI Social History Tobacco Use Types Packs/Day Years [...] the past 12 months, has t he [employer], gas, oil or water [employer] threatened to shut off services in your [...] Description 02/10/2025 1:00 PM EDT Clinical Support [address] [address] 02/13/2025 2:00 PM EDT Medication Management [address] [phone] Lor Goldstein, Chandu [address] [place] [address] 04/29/2025 3:45 PM EDT Office Visit [address] [address] Cesilia Alston ANP [address] [place] [address] documented as of this encounter Goals Goal Patient Goal Type Associated Problems Recent Progress Patient-Stated? Author Take your medication every day Lifestyle No Shannan Rojas, Chandu documented as of this encounter Visit Diagnoses Not on filedocumented in this encounter Care Teams C Architect Relationship Specialty Start Date End Date Cesilia Alston ANP [address] [place] [phone] PCP - General Family Medicine 10/24/23 documented as of this encounter
--- OUTSIDE RECORDS SUMMARY | 2025-02-06 14:04 | XMS_ITS | Encounter Summary ---
Author Organization [employer] Address [address] 7t [place] [address] Care Team Providers Care Associate Software Developer Name Role Phone Cesilia Alston Primary Care Provider [phone] Reason for Visit * Reason Onset Date Comments Discharging Patient 11/06/2023 Encounter Details Date Type Department Care Team ([facility] st Contact Info) Description 11/06/2023 Telephone [facility] [address] [place], [place] [phone] Cesilia Alston ANP 230 [place], [place] [phone] Discharging Patient Social History Tobacco Use Types Packs/Day Years Used Date Smoking Tobacco: Never Assessed Housing Stability Answer Date Recorded What is your housing situation today? I do not have housing (Staying with others, in a hotel, in a longterm, living outside on the street, on a [...] and denying services. Please contact Roberto @ [phone] documented in this encounter Plan of Treatment Upcoming Encounters Date Type Department Care Team (Late st Contact Info) Description 02/10/2025 1:00 PM EDT Clinical Support [address] [address] 02/13/2025 2:00 PM EDT Medication Management [address] [address] Lor Goldstein, PharmD [address] [place] [address] 04/29/2025 3:45 PM EDT Office Visit [facility] [address] [place] [address] Cesilia Alston ANP [address] [place] [address] documented as of this encounter Visit Diagnoses Not on filedocumented in this encounter Care Teams Associate Software Developer Relationship Specialty Start Date End Date Cesilia Alston ANP [address] [place] [address] PCP - General Family Medicine 10/24/23 documented as of this encounter
--- OUTSIDE RECORDS SUMMARY | 2025-02-06 14:04 | XMS_ITS | Encounter Summary ---
Author Organization [employer] Address [address] 7t [place] [address] Care Team Providers Care Gym Attendant Name Role Phone Cesilia Alston Primary Care Provider [phone] Reason for Visit * Reason Comments Med Refill Encounter Details Date Type Department Care Team ([facility] st Contact Info) Description 01/12/2025 Refill [facility] 230 [place], [place] [phone] Cesilia Alston ANP 230 [place], [place] [phone] Cigarette nicotine dependence without complication Social History [...] 02/10/2025 1:00 PM EDT Clinical Support [address] [address] 02/13/2025 2:00 PM EDT Medication Management [address] [address] Lor Goldstein PharmD [address] [place] [address] 04/29/2025 3:45 PM EDT Office Visit [address] [address] Cesilia Alston ANP [address] [place] [address] documented as of this encounter Goals Goal [...] documented as of this encounter Care Teams Gym Attendant Relationship Specialty Start Date End Date Cesilia Alston ANP [address] [place] [address] PCP - General Family Medicine 10/24/23 documented as of this encounter
--- OUTSIDE RECORDS SUMMARY | 2025-02-06 14:04 | XMS_ITS | Encounter Summary ---
Author Organization [employer] Address [address] [facility] 7t [place] [address] Care Team Providers Care Mold Shifter Name Role Phone Cesilia Alston Primary Care Provider [phone] Reason for Referral * Consultation (Routine) - Authorized Specialty Diagnoses / Procedures Referred By Saray momin Referred To Contact Vascular Surgery Diagnoses Pain in both lower extremities Cesilia Alston ANP 230 [place] [address] Phone: tel: fax: [facility] Referral ID Status Reason Start Date Expiration Date Visits Requested Visits Authorized [id number] Authorized Specialty Services Required 01/27/2025 01/27/2026 1 1 Reason for Visit * Reason Comments Diabetes Encounter Details Date Type Department Care Team (Latest Contact Info) Description 01/27/2025 1:00 PM EST Office Visit [facility] 230 [place], [place] [phone] Cesilia Alston ANP 230 [place], [place] [phone] Type 2 diabetes mellitus with hyperlipidemia (CMS/HCC) (CMS/HCC) (Primary Dx); Pain in both lower extremities; Balanitis; Dietary counseling; Exercise counseling Social History Tobacco Use Types Packs/Day Years [...] with others, in a hotel, in a mcc, living outside on the street, on a [...] (238 lb) 01/27/2025 1:17 PM EST Height - - Body Mass Index 32.28 07/18/2024 8:54 AM EDT documented in this encounter Progress Notes * FAISAL Hayden - 01/27/2025 1:00 PM EST SUBJECTIVE: Dick Rosales is a 64 y.o. year old male who presents for ED f/u . PMH T2DM w/ HLD and neuropathy, GERD, sarcoidosis, thyroid nodule Follows with: Dr. Salguero, MEAGAN Pop [facility] [place] [facility] gastroenterology next visit October 31, 2024 Colonoscopy 04/14/2021 2 polyps removed, tubular adenoma, 3-year follow-up. Acute Concerns: ED f/u: He was seen at [facility] ED on 01/10/2025 for dysuria, frequency and perineal pain. WBC 6.0. CMP had elevated alk phos 151 elevated random blood sugar 382. Ultimate diagnosis was balanitis and I assume UTI or secondary bacterial infection because he was also prescribed Keflex 500 mg. He was seen here at walk-in 01/13/25 for persistent symptoms. At that time culture and sensitivity urine was re-sent and he was advised to stop Keflex and start Bactrim DS for possible prostatitis. Hedid have exam consistent with balanitis and was advised to continue clotrimazole topical. He was urgently referred to urology. Had been previously established with urology for balanitis last summer and scrotal pain. He reports he finished antibiotics prescribed at walk-in and feels better in that regard. He reports that balanitis has completely resolved. DM: He quit smoking a little over a month ago which is very exciting and he is heartily congratulated. A1c significantly higher than previous. Plnku-nw-[id number] glucose today 378. it appears that since quitting smoking he is eating a lot more sweets. Review of CGM reveals 81% very high and 19% high blood sugars. No hypoglycemia. 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 He is excited to getback to cooking for himself and we discussed extensively diabetic diet. He is confident he can adhere to this and improve his A1c. Lab Results Component Value Date HGBA1C 10.0 (A) 01/27/2025 HGBA1C 6.6 (A) 10/21/2024 HGBA1C 8.0 (A) 07/18/2024 HGBA1C 7.9 (A) 03/25/2024 3. Does also report ongoing lower extremity pain worse with walking. Pain is sometimes in ankle butoften in calf worse on left leg. Better with rest. Latest Reference Range & Units 01/13/25 10:30 CULTURE, URINE, ROUTINE Rpt (no growth) CT PCR Not Detect. NOT DETECTED NG PCR Not Detect. NOT DETECTED Lives in [facility] and moved into her own apartment earlier today. Not employed. Former smoker, quit 1 mo ago (approximately December 2024) Last EtOH was 9 months ago Social History Social History Narrative Not on file Patient Active Problem List Diagnosis Dyslipidemia Gastroesophageal reflux disease without esophagitis Pain of male genitalia Phimosis Type 2 diabetes mellitus with hyperlipidemia (CMS/HCC) ([facility]) Non compliance w medication regimen Sarcoidosis Neuropathy Foot pain, bilateral Laceration of internal mouth Symptomatic irreversible pulpitis Periodontal disease History reviewed. No pertinent surgical history. No family history on file. Review of Systems Constitutional: Negative for fatigue, fever and unexpected weight change. HENT: Negative for sore throat. Eyes: Negative for visual disturbance. Respiratory: Negative for chest tightness, shortness of breath and wheezing. Gastrointestinal: Negative for constipation. Endocrine: Negative for polydipsia, polyphagia and polyuria. Genitourinary: Negative for difficulty urinating and dysuria. Musculoskeletal: Negative for back pain. Skin: Negative for rash. Neurological: Negative for headaches. OBJECTIVE: Vitals: 01/27/25 1317 BP: 113/72 BP Location: Right arm Patient Position: Sitting BP Cuff Size: Adult Pulse: 108 Resp: 16 Temp: 97.9 ??F (36.6 ??C) TempSrc: Temporal SpO2: 96% Weight: 238 lb (108 kg) Physical Exam Vitals reviewed. Constitutional: General: He is not in acute distress. Appearance: Normal appearance. He is obese. He is not ill-appearing. HENT: Head: Normocephalic and atraumatic. Mouth/Throat: Comments: Missing teeth Eyes: General: No scleral icterus. Extraocular Movements: Extraocular movements intact. Pupils: Pupils are equal, round, and reactive to light. Pulmonary: Effort: Pulmonary effort is normal. No accessory muscle usage or respiratory distress. Musculoskeletal: Right lower leg: No edema. Left lower leg: No edema. Comments: Bilateral lower extremities with 1+ distal pulses, no edema. Skin: Comments: Scant hair on bilateral lower extremities Neurological: Mental Status: He is alert and oriented to person, place, and time. Psychiatric: Mood and Affect: Mood normal. Behavior: Behavior normal. ASSESSMENT/PLAN Dick was seen today for diabetes. Diagnoses and all orders for this visit: Xin He reports symptoms have resolved and declines exam -I reminded him of urology need for follow-up type 2 diabetes mellitus with hyperlipidemia ([facility]) ([facility]) (Primary) Lab Results Component Value Date HGBA1C 10.0 (A) 01/27/2025 HGBA1C 6.6 (A) 10/21/2024 HGBA1C 8.0 (A) 07/18/2024 HGBA1C 7.9 (A) 03/25/2024 HGBA1C 6.5 (A) 12/06/2023 Reviewed with patient risks of uncontrolled diabetes. Reviewed with him the connection to [facility]. Based on CGM data blood sugar is high all the time. He is confident he can get this down with dietary changes. He was previously well- controlled on current medication regimen so as such will not change when today given he is committed to making significant dietary changes immediately. Stressed theutmost importance of this. He will meet with the nurses again in 2 to 3 weeks to upload CGM data again and I will see him in 3 months and update plan sooner if needed based on nurse visit. Complications include neuropathy, on gabapentin 800 mg 3 times daily Trulicity 3 mg once weekly Lantus 30 units once daily On statin, ASA, not on ACEI or ARB - POCT Glucose - POCT HGB A1C Former smoker Quit approximately December 2024. Reviewed with patient to not replace cigarettes with sugary foods, drinks, candy. Affirmed his progress and asked him to please get some sugar-free gum and toothpicks to use if needed. Pain in both lower extremities Comments: Suspect patient may have element of claudication. Will send to vascular for eval. Orders: - Referral to Vascular Surgery; Future Dietary and exercise counseling Lifestyle recommendations to improve heart health & lower cholesterol: be as active as able, ideally exercise 150min moderate intensity or 75min vigorous intensity weekly; increase intake of vegetables, fruits, whole grains, fish. Try to minimize intake of sugary or greasy food and drink. Use olive oil or vegetable, peanut, canola, or similar oil for cooking. Decrease or stop drinking alcoholif you drink, quit/decrease smoking if you smoke. Follow Up: Current Outpatient Medications on File Prior to Visit Medication Sig Dispense Refill acetaminophen (Tylenol) 500 MG tablet Take 2 tablets (1,000 mg) by mouth every 6 (six) hours if needed for moderate pain or fever for up to 25 doses. 30 tablet 0 albuterol (2.5 MG/3ML) 0.083% nebulizer solution INHALE 2.5 MG (3 ML) EVERY 4 HOURS NEEDED FOR SHORTNESS OF BREATH OR FOR WHEEZE albuterol 108 (90 Base) MCG/ACT inhaler INHALE 2 PUFFS BY MOUTH EVERY 4 HOURS NEEDED FOR BRONCHOSPASM ARIPiprazole (Abilify) 5 MG tablet aspirin 81 MG EC tablet Take 1 tablet (81 mg) by mouth Once per day. 90 tablet 3 atorvastatin (Lipitor) 80 MG tablet Take 1 tablet (80 mg) by mouth at bedtime. 30 tablet 11 busPIRone (Buspar) 10 MG tablet chlorhexidine (Peridex) 0.12 % solution Swish 15 mL morning and night for 1 minute. Spit, do not swallow. Do not eat or drink for 30 minutes following use. 473 mL 0 clonazePAM (KlonoPIN) 0.5 MG disintegrating tablet clotrimazole (Antifungal, Clotrimazole,) 1 % cream Apply topically 2 times daily. To feet 60 g 0 Continuous Glucose Stitch Bonding Machine Tender (FreeStyle Corry 2 Garrett) device Use as directed to monitor glucose ever 8 hours. 1 each 0 Continuous Glucose Sensor (FreeStyle Corry 2 Sensor) [facility] Use as directed to monitor glucose ever 8hours. Replace sensor every 14 days. 2 each 11 DULoxetine (Cymbalta) [address] capsule TAKE 1 CAPSULE BY MOUTH TWICE A DAY FREESTYLE LITE test strip Use to check blood sugar TID or more as needed 100 each 11 gabapentin (Neurontin) 300 MG capsule Take 1 capsule at bedtime with 800mg tablet 30 capsule 11 gabapentin (Neurontin) 800 MG tablet TAKE 1 TABLET BY MOUTH UP TO THREE TIMES DAILY 90 tablet 3 glucose blood (FreeStyle Precision Jim Test) test strip Test blood sugar q 8 hours 100 each 12 insulin glargine (Lantus SoloStar) 100 UNIT/ML pen Inject 30 Units under the skin Once daily. 30 mL2 meloxicam (Mobic) 7.5 MG tablet Take 1 tab once or twice daily if needed for pain 30 tablet 2 nicotine (Nicoderm CQ) 14 MG/24HR patch Place 1 patch on the skin 1 (one) time each day at the sametime. 42 patch 0 nicotine polacrilex (Nicorette) 4 MG gum Chew 1 piece every 1-2 hours as needed in place of cigarette. 100 each 5 pen needle 31G x 5 mm misc Use as instructed with lantus pen 100 each 12 prazosin (Minipress) 5 MG capsule 1 in the morning, 2 at night QUEtiapine (SEROquel) 200 MG tablet TAKE 1 TABLET BY MOUTH EVERYDAY AT BEDTIME QUEtiapine (SEROquel) 50 MG tablet TAKE 1 TABLET BY MOUTH TWICE A DAY NEEDED sulfamethoxazole-trimethoprim (Bactrim DS) 800-160 MG tablet Take 1 tablet by mouth 2 times daily for 14 days. 28 tablet 0 Trelegy Ellipta 100-62.5-25 MCG/ACT aerosol powder Inhale 1 Inhalation Once daily. 28 each 2 triamcinolone (Kenalog) 0.1 % cream Apply topically if needed in the morning and at bedtime (pain and swelling). 30 g 2 TRUEplus Lancets 33G misc Use TID or more as needed to check BG 100 each 11 Trulicity 3 MG/0.5ML solution auto-injector INJECT 3 MG SUBCUTANEOUSLY ONCE A WEEK 2 mL 2 [DISCONTINUED] azithromycin (Zithromax) 250 MG tablet On day 1 take 2 tablets once, then take 1 tablet once daily days 2 - 5 6 tablet 0 No current facility-administered medications on file prior to visit. documented in this encounter Plan of Treatment Upcoming Encounters Date Type Department Care Team (Late st Contact Info) Description 02/10/2025 1:00 PM EDT Clinical Support [address] [phone] 02/13/2025 2:00 PM EDT Medication Management [facility] [address] [place] [address] Lor Goldstein PharmD 230 [place] [address] 04/29/2025 3:45 PM EDT Office Visit [facility] [address] [place] [address] Cesilia Alston, ANP 230 [place] [address] Scheduled Orders Name Type Priority Associated Diagnoses Orde r Schedule Albumin, Random Urine W/Creatinine Lab Routine Type 2 diabetes mellitus with hyperlipidemia (CMS/HCC) ([facility]) Expected: 01/27/2025 (Approximate), Expires: 01/27/2026 Lipid Panel, Standard Lab Routine Type 2 diabetes mellitus with hyperlipidemia (CMS/HCC) (CMS/HCC) Expected: 01/27/2025 (Approximate), Expires: 01/27/2026 Comprehensive Metabolic Panel Lab Routine Type 2 diabetes mellitus with hyperlipidemia (CMS/HCC) ([facility]/HCC) Expected: 01/27/2025 (Approximate), Expires: 01/27/2026 Scheduled Referrals Name Type Priority Associated Diagnoses Orde r Schedule Referral to Vascular Surgery Outpatient Referral Routine Pain in both lower extremities Expected: 01/27/2025 (Approximate), Expires: 01/27/2026 documented as of this encounter Goals Goal Patient Goal Type Associated Problems Recent Progress Patient-Stated? Author Take your medication every day Lifestyle No Shannan Rojas, PharmD documented as of this encounter Procedures Procedure Name Priority Date/Time Associated Diagnosis Comments POCT GLYCATED HEMOGLOBIN, TOTAL Routine 01/27/2025 1:21 PM EST Type 2 diabetes mellitus with hyperlipidemia (CMS/HCC) ([facility]) POCT GLUCOSE Routine 01/27/2025 1:16 PM EST Type 2 diabetes mellitus with hyperlipidemia (CMS/HCC) ([facility]) documented in this encounter Results * (ABNORMAL) POCT HGB A1C (01/27/2025 1:21 PM EST) [facility] Hemoglobin A1C 10.0(A) 4.0 - 6.0 % QC Media Lot # [id number] Lot# Expiration Date Blood 01/27/2025 1:21 PM EST us Cesilia MALONE POINT OF CARE TEST ENTER/EDIT OR DERABLES Final Result * (ABNORMAL) POCT Glucose (01/27/2025 1:16 PM EST) Glucose Blood, POC 378(A) 60 - 200 mg/dL QC Media Lot # [id number] Lot# Expiration Date Blood Capillary blood specimen / Unknown 01/27/2025 1:16 PM EST us Cesilia MALONE POINT OF CARE TEST ENTER/EDIT OR DERABLES Final Result documented in this encounter Visit Diagnoses Diagnosis Type 2 diabetes mellitus with hyperlipidemia (CMS/HCC) (CMS/HCC)- Primary Pain in both lower extremities Balanitis Balanoposthitis Dietary counseling Dietary surveillance and counseling Exercise counseling documented in this encounter Additional Health Concerns Assessment Noted Time PHQ-9 Depression Total Score: 0 10/21/20 24 10:30 AM EST documented as of this encounter Care Teams Mold Shifter Relationship Specialty Start Date End Date Cesilia Alston ANP [address] [place] [address] PCP - General Family Medicine 10/24/23 documented as of this encounter
--- OUTSIDE RECORDS SUMMARY | 2025-02-06 14:04 | XMS_ITS | Encounter Summary ---
Author Organization [employer] Address [address] [place] [address] Care Team Providers Care Steward/Stewardess Third Class Name Role Phone Cesilia Alston Primary Care Provider [phone] Reason for Visit * Reason Onset Date Comments Unable to run CCA 10/06/2024 Encounter Details Date Type Department Care Team ([facility] st Contact Info) Description 10/06/2024 Telephone [facility] [address] [place] [address] Ryan Zurita DDS [address] [place] [address] Unable to run CCA Social History Tobacco [...] or post due to website being down. [facility] documented in this encounter Plan of Treatment Upcoming Encounters Date Type Department Care Team (Late st Contact Info) Description 02/10/2025 1:00 PM EDT Clinical Support [address] [address] 02/13/2025 2:00 PM EDT Medication Management [address] [address] Lor Goldstein PharmD [address] [place] [address] 04/29/2025 3:45 PM EDT Office Visit [address] [address] Cesilia Alston ANP [address] [place] [phone] documented as of this encounter Goals Goal Patient Goal Type Associated Problems Recent Progress Patient-Stated? Author Take your medication every day Lifestyle No Shannan Rojas, RachelD documented as of this encounter Visit Diagnoses Not on filedocumented in this encounter Care Teams Steward/Stewardess Third Class Relationship Specialty Start Date End Date Cesilia Alston ANP [address] [place] [address] PCP - General Family Medicine 10/24/23 documented as of this encounter
--- OUTSIDE RECORDS SUMMARY | 2025-02-06 14:04 | XMS_ITS | Encounter Summary ---
Author Organization [employer] Address [address] [facility] 7t [place] [address] Care Team Providers Care Embroidery Operator Name Role Phone Cesilia Alston Primary Care Provider [phone] Reason for Visit * Reason Comments Care Coordination CHW outreach for SDO H housing search-referral completed Encounter Details Date Type Department Care Team (Latest Contact Info) Description 01/20/2025 Patient Outreach [facility] 230 [place] [address] Cesilia Alston ANP [address] [place] [address] Care Coordination (CHW outreach for SDOH housing search-referral completed ) Social History Tobacco Use Types Packs/Day Years [...] AM EDT documented as of this encounter Progress Notes * Steven Mckeon - 01/20/2025 10:58 AM EST CHW Steven Mckeon, placed outbound call to patient for assistance with SDOH as a referral was received by the provider. Patient's name and were confirmed. Patient screened positive for the following SDOH housing insecurities. CHW referred patient to list of housing and applications mail out to address on file. Patient verbalizes understanding, and able to agree to follow up with housing search and call. Patient educated on extended clinic hours on Mondays through Wednesdays, and Walk-In Urgent Care Located in [facility] of [facility]. Patient provided with after-hours line for [facility], , which offer night time triage service and option to transfer to fuel conversion technician provider if needed. documented in this encounter Plan of Treatment Upcoming Encounters Date Type Department Care Team ([facility] st Contact Info) Description 02/10/2025 1:00 PM EDT Clinical Support [facility] [address] [place] [phone] 02/13/2025 2:00 PM EDT Medication Management [address] [address] Lor Goldstein, Chandu [address] [place] [address] 04/29/2025 3:45 PM EDT Office Visit [facility] [address] [place] [address] Cesilia Alston ANP [address] [place] [phone] documented as of this encounter Goals Goal Patient Goal Type Associated Problems Recent Progress Patient-Stated? Author Take your medication every day Lifestyle No Shannan Rojas, RachelD documented as of this encounter Visit Diagnoses Not on filedocumented in this encounter Additional Health Concerns Assessment Noted Time PHQ-9 Depression Total Score: 0 10/21/20 24 10:30 AM EST documented as of this encounter Care Teams Embroidery Operator Relationship Specialty Start Date End Date Cesilia Alston ANP [address] [place] [address] PCP - General Family Medicine 10/24/23 documented as of this encounter
--- OUTSIDE RECORDS SUMMARY | 2025-02-06 14:04 | XMS_ITS | Encounter Summary ---
Author Organization [employer] Address [address] 7t [place] [address] Care Team Providers Care Networks Computer Consultant Name Role Phone Cesilia Alston Primary Care Provider [phone] Reason for Visit * Reason Comments Pre-visit Planning SDOH Screening posit eileen and Tobacco screening negative Encounter Details Date Type Department Care Team ([facility] st Contact Info) Description 01/20/2025 Patient Outreach [facility] [address] [place], [place] [phone] Cesilia Alston ANP [address] [place] [address] Pre-visit Planning (SDOH Screening positive and Tobacco screening negative) Social History Tobacco Use Types Packs/Day Years [...] with others, in a hotel, in a jail, living outside on the street, on a [...] as of this encounter Progress Notes * Rosalina Staley - 01/20/2025 10:28 AM EST DIDIER Olivo placed successful outbound call to patient for pre-visit planning. Patient name and confirmed. Patient confirms appt date and time, and has transportation arrangements. Biggest concern for appointment at this time is has concerns with the prostate and its been 30 days that he stopped smoking cigarettes but notice been having chest pain. Also he stopped smoking marihuana and the alcohol a year already. . Patient educated on extended clinic hours on Mondays and Wednesdays, and Walk[facility]In Urgent Care Located in [facility]. Patient advised to bring to appointment a photo id and insurance card. Appropriate screenings completed in anticipation of appointment. SDOH positive. Patient looking for assistance with Housing(Staying in a program due to being homeless), and Food insecurities:Sometimes. Referral will be placed. documented in this encounter Plan of Treatment Upcoming Encounters Date Type Department Care Team (Late st Contact Info) Description 02/10/2025 1:00 PM EDT Clinical Support [address] [address] 02/13/2025 2:00 PM EDT Medication Management [address] [address] Lor Goldstein, RachelD [address] [place] [address] 04/29/2025 3:45 PM EDT Office Visit [address] [address] Cesilia Alston ANP [address] [place] [address] documented as of this encounter Goals Goal Patient Goal Type Associated Problems Recent Progress Patient-Stated? Author Take your medication every day Lifestyle Shannan Fiore, RachelD documented as of this encounter Visit Diagnoses Not on filedocumented in this encounter Additional Health Concerns Assessment Noted Time PHQ-9 Depression Total Score: 0 10/21/20 24 10:30 AM EST documented as of this encounter Care Teams Networks Computer Consultant Relationship Specialty Start Date End Date Cesilia Alston ANP [address] [place] [address] PCP - General Family Medicine 10/24/23 documented as of this encounter
--- OUTSIDE RECORDS SUMMARY | 2025-02-06 14:04 | XMS_ITS | Encounter Summary ---
Author Organization [employer] Address [address] [facility] 7t [place] [address] Care Team Providers Care Liner Worker Name Role Phone Cesilia Alston Primary Care Provider [phone] Reason for Visit * Reason Onset Date Comments Chart Prep 01/26/2025 Encounter Details Date Type Department Care Team ([facility] st Contact Info) Description 01/26/2025 Telephone [facility] MED[facility]INE [address] [place], [place] [phone] Cesilia Alston ANP 230 [place], [place] [phone] Chart Prep Social History Tobacco Use Types Packs/Day Years [...] with others, in a hotel, in a correction, living outside on the street, on a [...] encounter Miscellaneous Notes * Telephone Encounter - Lovely Escobar [place] - 01/26/2025 2:40 PM EST Chart Prep Labs: not applicable Images: done Vaccines due: Covid Due, Hep A Due, Flu Due, RSV in Pharmacy Due, and Shingles in pharmacy Due Referrals: Urology Requested notes by Fax. Waiting for notes. Screenings: Colonoscopy and Eye Exam Overdue care gaps: A1C, Glucose, and Sbirt documented in this encounter Plan of Treatment Upcoming Encounters Date Type Department Care Team (Late st Contact Info) Description 02/10/2025 1:00 PM EDT Clinical Support [facility] [address] [place] [phone] 02/13/2025 2:00 PM EDT Medication Management [facility] [address] [place] [address] Lor Goldstein, PharmD [address] [place] [address] 04/29/2025 3:45 PM EDT Office Visit [facility] [address] [place] [address] Cesilia Alston ANP [address] [place] [address] documented as of this encounter Goals Goal Patient Goal Type Associated Problems Recent Progress Patient-Stated? Author Take your medication every day Lifestyle No Shannan Rojas, PharmD documented as of this encounter Visit Diagnoses Not on filedocumented in this encounter Additional Health Concerns Assessment Noted Time PHQ-9 Depression Total Score: 0 10/21/20 24 10:30 AM EST documented as of this encounter Care Teams Liner Worker Relationship Specialty Start Date End Date Cesilia Alston ANP 230 [place] [address] PCP - General Family Medicine 10/24/23 documented as of this encounter
--- OUTSIDE RECORDS SUMMARY | 2025-02-06 14:04 | XMS_ITS | Encounter Summary ---
Author Organization [employer] Address [address] [facility] [address] 7t [place] [address] Care Team Providers Care Food And Beverage Analyst Name Role Phone Gamaliel Cesilia MALONE Primary Care Provider [phone] Encounter Details Date Type Department Care Team (Latest Contact Info) Description 01/27/2025 Travel Social History Tobacco Use Types Packs/Day [...] with others, in a hotel, in a skilled nursing, living outside on the street, on a [...] Description 02/10/2025 1:00 PM EDT Clinical Support [address] [address] 02/13/2025 2:00 PM EDT Medication Management [address] [address] Lor Goldstein PharmD [address] [place] [address] 04/29/2025 3:45 PM EDT Office Visit [address] [address] Cesilia Alston ANP [address] [place] [address] documented as of this encounter Goals Goal Patient Goal Type Associated Problems Recent Progress Patient-Stated? Author Take your medication every day Lifestyle No Shannan Rojas PharmD documented as of this encounter Visit Diagnoses Not on filedocumented in this encounter Additional Health Concerns Assessment Noted Time PHQ-9 Depression Total Score: 0 10/21/20 24 10:30 AM EST documented as of this encounter Care Teams Food And Beverage Analyst Relationship Specialty Start Date End Date Cesilia Alston ANP [address] [place] [address] PCP - General Family Medicine 10/24/23 documented as of this encounter
--- OUTSIDE RECORDS SUMMARY | 2025-02-06 14:04 | XMS_ITS | Encounter Summary ---
Author Organization [employer] Address [address] [facility] 7t [place] [address] Care Team Providers Care Specimen Processor Name Role Phone Cesilia Alston Primary Care Provider [phone] Reason for Visit * Reason Onset Date Comments Medication Question 01/19/2025 Encounter Details Date Type Department Care Team ([facility] st Contact Info) Description 01/19/2025 Telephone [facility] MED[facility]INE 230 [place], [place] [phone] Cesilia Alston ANP 230 [place], [place] [phone] Medication Question Social History Tobacco Use Types [...] with others, in a hotel, in a prison, living outside on the street, on a [...] Telephone Encounter - Susanne Francisco RN - 01/20/2025 10:22 AM EST Incoming phone call from pt who stated that his Victor 2 sensor broke. Advised pt that director underwriter sales tried to call [facility] yesterday to see when he can pick it up next but no call back. Gavehim phone number for [employer] to call directly and ask for free sensor to be sent. Pt wrote down number, advised him to call [facility] himself and ask when he can pick pulling machine tender sensors. Rehabilitation Medicine Physician called [facility] again and was informed soonest refill is January 27. Called pt back to inform him. Pt already calling [facility], verbalized understanding for January 27, to call clinic PRN. * Telephone Encounter - Susanne Francisco RN - 01/19/2025 1:37 PM EST Telephone call to pt to inquire about message below, no answer, left voicemail asking for call back. Unsure what broke, sensors or reader. Called [facility] to inquire when pt can obtain refill on sensors, no answer, left voicemail asking for call back. Will task to call again. * Telephone Encounter - Kaylene Wigginsjesus Leonides - 01/19/2025 12:32 PM EST Tc from pt stating glucose sensor (Corry 2) is broken and requests a glucose monitoring kit. documented in this encounter Plan of Treatment Upcoming Encounters Date Type Department Care Team (Late st Contact Info) Description 02/10/2025 1:00 PM EDT Clinical Support [address] [address] 02/13/2025 2:00 PM EDT Medication Management [address] [address] Lor Goldstein PharmD [address] [place] [address] 04/29/2025 3:45 PM EDT Office Visit [address] [address] Cesilia Alston ANP [address] [place] [address] documented as of this encounter Goals Goal Patient Goal Type Associated Problems Recent Progress Patient-Stated? Author Take your medication every day Lifestyle No Shannan Rojas, PharmD documented as of this encounter Visit Diagnoses Not on filedocumented in this encounter Additional Health Concerns Assessment Noted Time PHQ-9 Depression Total Score: 0 10/21/20 24 10:30 AM EST documented as of this encounter Care Teams Specimen Processor Relationship Specialty Start Date End Date Cesilia Alston ANP [address] [place] [address] PCP - General Family Medicine 10/24/23 documented as of this encounter
--- OUTSIDE RECORDS SUMMARY | 2025-02-06 14:04 | XMS_ITS | Encounter Summary ---
Author Organization [employer] Address [address] [facility] 7t [place] [address] Care Team Providers Care Consulting Senior Practice Director Name Role Phone Ritika Marsh MD Primary Care Pro vider Cesilia Alston Primary Care Provider Reason for Visit * Reason Onset Date Comments Medication Question 10/23/2023 Encounter Details Date Type Department Care Team ([facility] st Contact Info) Description 10/23/2023 Telephone [facility] 230 [place] [address] Ritika Marsh MD 230 [place], [place] [phone] Medication Question Social History Tobacco Use Types Packs/Day Years Used Date Smoking Tobacco: Never Assessed Housing Stability Answer Date Recorded What is your housing situation today? I do not have housing (Staying with others, in a hotel, in a [place] [facility] [place], living outside on the street, on a [...] 2:26 PM EST Telephone call returned to Scott CONKLIN regarding below message. He has several concerns. [...] them cut down from daily to 3x/week. [facility] wants to let PCP know this. Also, pt told him that he was recently at the EDfor BG >400. He states this is because pt refuses insulin most days. Also concerned about polypharmacy. States pt uses around 5 pharmacies that he has counted. Pt does not have transportation, VNAtries to pickup driver scripts but sometimes can't find where they were sent to. I notice trulicity and lantus both sent 10/20 were [facility] He states spoke to pt regarding this and is requesting we change pt's main pharmacy to [facility] in [place] as it is 5 minutes from pt's home. Will update pt's chart to reflect this. He is also wondering if lantus can be sent as a pen. States pt's eye sight isn't good and he is concerned with him drawing up his own insulin on days he isn't there. Lastly, he is requesting a med list be faxed to [phone]. Will fax. * Telephone Encounter - Roly Hay - 10/23/2023 11:49 AM EST Tc from Scott from [facility] requesting a call back from nurse in regards to insulin. Please contact at [phone] documented in this encounter Plan of Treatment Upcoming Encounters Date Type Department Care Team (Late st Contact Info) Description 02/10/2025 1:00 PM EDT Clinical Support [address] [address] 02/13/2025 2:00 PM EDT Medication Management [address] [address] Lor Goldstein, PharmD [address] [place] [address] 04/29/2025 3:45 PM EDT Office Visit [address] [address] Cesilia Alston ANP [address] [place] [address] documented as of this encounter Visit Diagnoses Not on filedocumented in this encounter Care Teams Consulting Senior Practice Director Relationship Specialty Start Date End Date Ritika Marsh MD [address] [place] [address] PCP - General Internal Medicine 06/01/23 10/23/23 Cesilia Alston ANP [address] [place] [address] PCP - General Family Medicine 10/24/23 documented as of this encounter
--- OUTSIDE RECORDS SUMMARY | 2025-02-06 14:04 | XMS_ITS | Encounter Summary ---
Author Organization [employer] Address [address] [facility] 7t [place] [address] Care Team Providers Care Data Center Operator Name Role Phone Cesilia Alston Primary Care Provider [phone] Reason for Referral * Consultation (Urgent) - Authorized Specialty Diagnoses / Procedures Referred By Contac t Referred To Contact Urology Diagnoses Pelvic pain Dysuria Yossi Mauricio MD [address] [place] [address] Phone: tel: fax: [facility] [address] [facility] [address] [place] [address] Phone: tel: fax: Referral ID Status Reason Start Date Expiration Date Visits Requested Visits Authorized [id number] Authorized Specialty Services Required 01/13/2025 01/13/2026 1 1 Reason for Visit * Reason Comments prostate pain Encounter Details Date Type Department Care Team (Late st Contact Info) Description 01/13/2025 9:40 AM EST Office Visit [facility] [address] [place] [phone] Yossi Mauricio MD [address] [place] [address] [phone] Pelvic pain (Primary Dx); Dysuria Social History [...] y.o. male. HPI Dick was seen in [facility] ED 3 days ago for dysuria, frequency, and perineal pain that started 2 days prior. States that it felt similar to prior prostate infection. WBC= 6.0. CMP was normal except for alk dppy=320, random BG+ 382, given insulin 10 units IV in the ED CAT scan with IV contrast shows no evidence of acute surgical or infectious process in the abdomenor pelvis . Diagnosis: Balanitis. Prescribed clotrimazole 1 % cream and Keflex 500 mg, oxycodone. He came to [facility] today because of ongoing pain in the groin , burning on urinary. White material under foreskin is improving with clotrimazole cream States sx are similar to prostate infection he had last year, was referred to urology but never went. Mack fever, chills, flank pain.. Lives in [facility]. Not employed. Former smoker, quit 29 days ago. Last EtOH was 9 months ago. Patient Active Problem List Diagnosis Dyslipidemia Gastroesophageal reflux disease without esophagitis Pain of male genitalia Phimosis Type 2 diabetes mellitus with hyperlipidemia ([facility]) ([facility]) Non compliance w medication regimen Sarcoidosis [...] prostatitis. We requested urine C&S results from [facility] ED visit, but are unable to [...] Description 02/10/2025 1:00 PM EDT Clinical Support [facility] [address] [place] [address] 02/13/2025 2:00 PM EDT Medication Management [facility] [address] [place] [address] Lor Goldstein, PharmD 230 [place] [address] 04/29/2025 3:45 PM EDT Office Visit [facility] 230 [place] [address] Cesilia Alston ANP [address] [place], [place] [phone] Scheduled Referrals Name Type Priority Associated Diagnoses Orde r Schedule Referral to Urology Outpatient Referral Urgent Pelvic pain Dysuria Expected: 01/13/2025 (Approximate), Expires: 01/13/2026 documented as of this encounter Goals Goal Patient Goal Type Associated Problems Recent Progress Patient-Stated? Author Take your medication every day Lifestyle No Shannan Rojas, PharmD documented as of this encounter Procedures Procedure Name Priority Date/Time Associated Diagnosis Comments CHLAMYDIA/N. GONORRHOEAE RNA, TMA, UROGENITAL Routine 01/13/2025 10:30 AM EST Dysuria CULTURE, URINE, ROUTINE Routine 01/13/2025 10:30 AM EST Pelvic pain Dysuria documented in this encounter Results * Chlamydia/N. Gonorrhoeae RNA, TMA, Urogenitial (01/13/2025 10:30 AM EST) CT PCR NOT DETECTED Not Detect. [facility] Comment:A not detected test result does [...] psychologicalconsequences. NG PCR NOT DETECTED Not Detect. [facility] Comment:A not detected test result does [...] 10:30 AM EST 01/13/2025 4:06 PM EST [facility] - 01/13/2025 5:58 PM EST Urine us Yossi Mauricio MD LAB MICROBIOLOGY - GENERAL ORDER KIARRA Final Result Performing Organization Address [facility] Co de Phone Number [facility] [address] [place] [phone] * Culture, Urine, Routine (01/13/2025 10:30 AM EST) Urine Urine specimen obtained by clean catch procedure / Unknown 01/13/2025 10:30 AM EST 01/13/2025 4:06 PM EST Comment:[facility] - 01/15/2025 10:39 AM EST Urine Culture No growth. Specimen Source: Urine clean catch us Yossi Mauricio MD LAB MICROBIOLOGY - GENERAL ORDER KIARRA Final Result Performing Organization Address City/[facility] Co de Phone Number [facility] [address] [place] [phone] documented in this encounter Visit Diagnoses Diagnosis Pelvic pain- Primary Dysuria documented in this encounter Additional Health Concerns Assessment Noted Time PHQ-9 Depression Total Score: 0 10/21/20 24 10:30 AM EST documented as of this encounter Care Teams Data Center Operator Relationship Specialty Start Date End Date Cesilia Alston ANP [address] [place] [address] PCP - General Family Medicine 10/24/23 documented as of this encounter
--- OUTSIDE RECORDS SUMMARY | 2025-02-06 14:04 | XMS_ITS | Encounter Summary ---
Author Organization [employer] Address [address] [facility] [address] 7[address] [place] [address] Care Team Providers Care Feeder/Folder Name Role Phone Cesilia Alston Primary Care Provider [phone] Encounter Details Date Type Department Care Team (Late st Contact Info) Description 01/13/2025 Telephone [facility] MEDICINE [address] [place], [place] [phone] Susanne Francisco RN Social History Tobacco Use [...] EST Pt walked into green team front office administrator asking for ED follow up. Pt seen at [facility] ED on 01/10/25 for groin swelling/pain, seen today by Dr Mauricio in [facility] for same concern. Advised pt that since he was just seen for same concern, to follow Dr Mauricio's recommendations from today and to call [facility] or return to [facility] in a few days if symptoms do not improve. Explained to pt that he has appt with PCP scheduled for 01/27/25 (in 2 weeks), printed reminder. Advised pt to call [facility] if symptoms do not resolvein a few days, explained WIC hours and NTTS clothes ironer nurse. Pt verbalized understanding. documented in this encounter Plan of Treatment Upcoming Encounters Date Type Department Care Team (Late st Contact Info) Description 02/10/2025 1:00 PM EDT Clinical Support [facility] [address] [place] [address] 02/13/2025 2:00 PM EDT Medication Management [facility] [address] [place] [address] Lor Goldstein, PharmD [address] [place] [address] 04/29/2025 3:45 PM EDT Office Visit [facility] [address] [place] [phone] Cesilia Alston, ANP 230 [place] [address] documented as of this encounter Goals Goal Patient Goal Type Associated Problems Recent Progress Patient-Stated? Author Take your medication every day Lifestyle No Shannan Rojas, PharmD documented as of this encounter Visit Diagnoses Not on filedocumented in this encounter Additional Health Concerns Assessment Noted Time PHQ-9 Depression Total Score: 0 10/21/20 24 10:30 AM EST documented as of this encounter Care Teams Feeder/Folder Relationship Specialty Start Date End Date Cesilia Alston ANP [address] [place] [address] PCP - General Family Medicine 10/24/23 documented as of this encounter
--- OUTSIDE RECORDS SUMMARY | 2025-02-06 14:04 | XMS_ITS | Encounter Summary ---
Author Organization [employer] Address [address] [facility] 7t [place] [address] Care Team Providers Care Logistics Program Manager Name Role Phone Cesilia Alston Primary Care Provider [phone] Reason for Visit * Reason Comments Med Refill Encounter Details Date Type Department Care Team ([facility] st Contact Info) Description 12/28/2023 Refill [facility] 230 [place], [place] [phone] Cesilia Alston ANP 230 [place], [place] [phone] Type 2 diabetes mellitus with other specified complication, with long-term current use of insulin ([facility]) Social History Tobacco Use Types Packs/Day Years [...] Description 02/10/2025 1:00 PM EDT Clinical Support [address] [address] 02/13/2025 2:00 PM EDT Medication Management [address] [address] Lor Goldstein PharmD [address] [place] [address] 04/29/2025 3:45 PM EDT Office Visit [address] [address] Cesilia Alston ANP [address] [place] [address] documented as of this encounter Goals Goal Patient Goal Type Associated Problems Recent Progress Patient-Stated? Author Take your medication every day Lifestyle No Shannan Rojas, RachelD documented as of this encounter Visit Diagnoses Diagnosis Type 2 diabetes mellitus with other specified complication, with long-term current use of insulin ([facility]) documented in this encounter Care Teams Logistics Program Manager Relationship Specialty Start Date End Date Cesilia Alston ANP [address] [place] [address] PCP - General Family Medicine 10/24/23 documented as of this encounter
--- OUTSIDE RECORDS SUMMARY | 2025-02-06 14:04 | XMS_ITS | Patient Health Record ---
Author Organization [facility] Address [address], [place] [id number] Care Team Providers Care Pipe Fitter Marine Name Role Phone Pedro Luis AYALA, Hannah Primary Care Provider Unavaila ble [facility], [facility] Unavailable [phone] Reason For Referral No Information Medications Medication [...] nts Influenza Unknown 09/16/2010 Administered done at [facility] PPD planted SC Subcutaneous 11/11/2010 Administered PPD negative Unknown 11/14/2010 Administered PPD planted ID Intradermal 05/19/2013 Administered PPD negative Unknown 05/22/2013 Administered Problems Problem Type SNOMED Code ICD Code Onset Dates Problem Status W/U Status Risk Notes Problem Diabetes mellitus type II (24752694) Diabetes mellitus type II (250.00) Active confirmed Low Problem Gout (29311432) Gout NOS (274.9) Active confirmed Problem Tobacco use (174806849) Tobacco use disorder (305.1) Active confirmed Problem Family history: Diabetes mellitus (189810286) FAM HX-DIABETES MELLITUS (V18.0) Active confirmed Problem Obesity (342042747) Overweight BMI 25-29.9 (278.00) Active confirmed Plan Of Treatment No Information Insurance Providers Payer Name Payer Address Payer Phone Subscriber Number Group Number Insured Name Patient Relationship to Insured Coverage Start Date Coverage End Date [place] Medicaid Standard [address] [place] [address] [id number] Dick Rosales Self - patient is the insured [employer] [address] [place] [phone] [id number] Dick Rosales Self - patient is the insured Medical (General) History Medical History History ICD Code gout arthritis tobacco use
== END 2025-02-06 13:42 | disposition home or self-care (01) ==
LOC: HO.HVS 12:28
PROVIDERS: PCP Nurse Practitioner Primary Care; Visit Provider Physician Assistant Surgical
DX: I73.9 Peripheral vascular disease, unspecified (principal)
CPT/HCPCS: 99214

== ENCOUNTER → 2025-02-06 12:28 | Outpatient (BNVA) | payer OTHER, SELFPAY | PROVIDERS: PCP Nurse Practitioner Primary Care; Visit Provider Physician Assistant Surgical | DX: I73.9 Peripheral vascular disease, unspecified (principal); Z87.891 Personal history of nicotine dependence | CPT/HCPCS: 99212 ==

== ENCOUNTER → 2025-05-20 07:22 | Outpatient (BNV) | payer OTHER, SELFPAY | PROVIDERS: Emergency Provider Emergency Medicine; PCP Nurse Practitioner Primary Care; Visit Provider Radiology Diagnostic Radiology | DX: M25.531 Pain in right wrist (principal); M79.631 Pain in right forearm | CPT/HCPCS: 73090; 73100 ==

== ENCOUNTER 2025-05-20 07:57 | Emergency (ER) | payer OTHER, SELFPAY ==
--- NOTE | ~2025-05-20 | XR_ITS ---
EXAMINATION: XR WRIST 1-2 VIEWS RIGHT, XR FOREARM 2 VIEWS RIGHT HISTORY: trauma, pain and swelling COMPARISON: There are no prior studies available for comparison. FINDINGS: AP and lateral views of the right forearm and 4 views of the right wrist, including a scaphoid view are submitted. Osseous mineralization is normal. There is no fracture or dislocation. There is mild degenerative change involving the 1st carpometacarpal joint with joint space narrowing. The visualized portion of the elbow joint is maintained. There are vascular calcifications. XR/XR forearm RT 2V IMPRESSION: No evidence of fracture of the right wrist or forearm. Electronically signed by: Cali Benitez MD 05/20/2025 08:33 AM EDT
--- NOTE | ~2025-05-20 | XR_ITS ---
EXAMINATION: XR WRIST 1-2 VIEWS RIGHT, XR FOREARM 2 VIEWS RIGHT HISTORY: trauma, pain and swelling COMPARISON: There are no prior studies available for comparison. FINDINGS: AP and lateral views of the right forearm and 4 views of the right wrist, including a scaphoid view are submitted. Osseous mineralization is normal. There is no fracture or dislocation. There is mild degenerative change involving the 1st carpometacarpal joint with joint space narrowing. The visualized portion of the elbow joint is maintained. There are vascular calcifications. XR/XR wrist RT 2V IMPRESSION: No evidence of fracture of the right wrist or forearm. Electronically signed by: Cali Benitez MD 05/20/2025 08:33 AM EDT
[2025-05-20 08:01] VITALS: BP 106/62; PULSE 97; RESP 20; TEMP 37; O2SAT 98; BMI 34.1
[2025-05-20 08:57] VITALS: BP 105/63; PULSE 80; RESP 16; O2SAT 96
--- NOTE | 2025-05-20 08:58 | ED.EXTPRO ---
HPI - Extremity Problem General Chief complaint: Extremity Injury, Upper Stated complaint: wrist pain Time Seen by Provider: 05/20/25 08:54 Source: patient Mode of arrival: ambulatory Limitations: no limitations History of Present Illness ED Provider: ROLY BAÑUELOS PA-C HPI Narrative: 64-year-old qpwsl-ptxm-zedabwde male with pmhx significant for depression, anxiety, diabetes, neuropathy, GERD, asthma/COPD, sarcoidosis, bipolar 2 disorder presents to the ED today with right wrist pain/swelling x3 days. Reports pain began while she was opening a can of food a few days ago. Reports pain to the ventral aspect of his left wrist, extending up his forearm. Reports numbness to all of his digits at baseline from his neuropathy. No new numbness/ tingling. Reports history of carpal tunnel syndrome. He is currently on 800 gabapentin TID. He did not trial anything else for the pain. He does not wear a wrist brace during the day or at night. No blunt injury or trauma. No falls. Denies fever, chills. Denies history of IV drug use. Related Data Home Medications ?Medication ?Instructions ?Recorded ?Confirmed clonazepam 0.5 mg tablet 0.5 mg PO DAILY PRN 10/13/22 dulaglutide 0.75 mg/0.5 mL mg subcut 10/13/22 subcutaneous pen injector (Trulicity) CPAP (CPAP Machine/Device) 04/13/23 dulaglutide 1.5 mg/0.5 mL mg subcut 05/19/24 subcutaneous pen injector (Trulicity) buspirone 10 mg tablet 10 mg PO TID 02/06/25 Previous Rx's ?Medication ?Instructions ?Recorded insulin glargine 100 unit/mL 20 unit (0.2 mL) subcut BEDTIME 06/22/22 subcutaneous solution (Lantus #10 mL U-100 Insulin) prazosin 5 mg capsule 5 mg PO DAILY #30 caps 06/22/22 prazosin 5 mg capsule 10 mg PO BEDTIME #60 caps 06/22/22 blood sugar diagnostic #10 ea 07/21/22 duloxetine 30 mg capsule,delayed 90 mg (3 x 30 mg) PO BEDTIME #90 07/21/22 release caps gabapentin 600 mg tablet 600 mg PO TID #90 tabs 07/21/22 insulin syringe-needle U-100 1 mL #100 ea 07/21/22 29 gauge x 1/2 (Insulin Syringe) lancets 33 gauge #100 ea 07/21/22 quetiapine 200 mg tablet 200 mg PO BEDTIME #30 tabs 07/21/22 quetiapine 50 mg tablet 50 mg PO BID@0800,1400 #60 tabs 07/21/22 cyclobenzaprine 10 mg tablet 10 mg PO BEDTIME PRN muscle spasm 08/04/22 #7 tabs insulin glargine 100 unit/mL (3 24 unit (0.24 mL) subcut QAM #15 mL 08/04/22 mL) subcutaneous pen (Lantus Solostar U-100 Insulin) fluticasone fur. 100 mcg-umeclid 1 inh inhalation DAILY 30 days #60 04/13/23 62.5 mcg-vilant 25 mcg ea inhalat.powder (Trelegy Ellipta) meloxicam 15 mg tablet 15 mg PO DAILY 30 days #30 tabs 01/09/24 albuterol sulfate 2.5 mg/3 mL 2.5 mg (3 mL) inhalation BID 30 09/15/24 (0.083 %) solution for nebulization days #180 mL albuterol sulfate 90 mcg/actuation 2 puff inhalation Q4H PRN 09/15/24 aerosol inhaler (Ventolin HFA) bronchospasm #6.7 grams bisacodyl 5 mg tablet,delayed 20 mg (4 x 5 mg) PO ONCE 1 day #4 10/21/24 release (Dulcolax (bisacodyl)) tabs polyethylene glycol 3350 17 238 g PO ONCE 1 day #238 grams 10/21/24 gram/dose oral powder (Miralax) naproxen 500 mg tablet 500 mg PO Q12H PRN pain (scale 05/20/25 score 1-3) #20 tabs Allergies Allergy/AdvReac Type Severity Reaction Status Date / Time No Known Allergies Allergy Verified 05/20/25 08:04 Review of Systems Review of Systems: Constitutional: No fever, chills, fatigue, night sweats, weight changes ENT/Mouth: No ear pain, hearing loss, nasal congestion, sinus pain, rhinorrhea, sore throat Eyes: No eye pain, swelling, redness, vision changes, discharge Cardio: No chest pain, palpitations, العلي, orthopnea, peripheral edema Pulm: No SOB, cough, sputum, wheezing, dyspnea, hemoptysis GI: No nausea, vomiting, hematemesis, abdominal pain, diarrhea, constipation, hematochezia, melena : No irregular bleeding, dysuria, frequency, urgency, hesitancy, hematuria, flank pain, urinary flow changes, urinary incontinence or retention MSK: No back pain, neck pain, joint pain, myalgias, +right wrist pain Skin: No lesions, rashes Neuro: No weakness, numbness, paresthesias, LOC, dizziness, headache Psych: No anxiety/panic, depression, SI/HI, AH/VH All other systems reviewed and are negative. [facility] Past Medical History Attestation statement: The following information was validated with the patient. Source: old records reviewed, obtained from family and nursing notes reviewed Medical History Thyroid nodule Pulmonary nodules Tobacco dependence Bronchopneumonia Post traumatic stress disorder (PTSD) Bipolar II disorder Hallucination, visual Chronic bronchitis with wheezing Asthma-COPD overlap syndrome Pneumonitis Hyperhidrosis Back pain Diabetes Neuropathy Anxiety PTSD (post-traumatic stress disorder) Depression Gout Sarcoidosis GERD (gastroesophageal reflux disease) Surgical History History of bronchoscopy Hx of colonoscopy Family History Family History Father Myocardial infarction Mother No problems noted. Social History Social History Household Members: None Housing: House Housing Other:: rent Do you presently have visiting nurse or other home services: Yes Alcohol intake: current Alcohol intake frequency: holidays/special occasions only Patient Tobacco Use Status: Current everyday Tobacco user Tobacco use type: Cigarette Cigarette Packs Per Day: 1 Cigarettes Per Day: 7 Years Smoked: 52, prior 2 ppd smoker since age of 10 Smoked in Last 30 Days: Yes e-Cigarette/Vaping Use: Never Used Second Hand Smoke Exposure: Yes Use of substances other than those prescribed or required for medical reasons: No Substance Use Type: Marijuana Advance Directives: No Advance Directives Information Provided: Yes service: No Sexual orientation: Straight/Heterosexual Physical Exam Vital Signs: Vital Signs: Last Vital Signs Temp 98.6 F 05/20/25 08:01 Pulse 80 05/20/25 08:57 Resp 16 05/20/25 08:57 BP 105/63 05/20/25 08:57 Pulse Ox 96 05/20/25 08:57 O2 Del Method Room Air 05/20/25 08:57 BMI result Body Mass Index 34.1 Vital signs stable, afebrile General: Well appearing, in no acute distress. Skin: Warm, dry, intact. No rashes or lesions. Head: Normocephalic, atraumatic. EENT: Hearing is intact b/l. Conjunctiva clear. PERRLA. EOM intact. Moist mucous membranes.? Cardiac: Chest wall symmetric. RRR Lungs: Normal respiratory effort without accessory muscle use. CTA bilaterally Ext: minimal swelling note to dorsal/ventral aspect R wrist. no overlying erythema, ecchymosis, deformity. diffuse ttp, no crepitus, warmth, deformity. FROM intact to R wrist, mil pain indution on flexion. skein yarn dyer strength decreased to R. +tinnel sign. +phalen. finger strength intact. Neuro: AOx3. Normal speech. Ambulating with steady gait. Psych: Appropriate mood and affect. Responds appropriately to questions. Medications Administered Discontinued Medications Generic Name Dose Route Start Last Admin Trade Name Freq PRN Reason Stop Dose Admin Ibuprofen 600 mg 05/20/25 09:03 05/20/25 09:09 Ibuprofen 600 Mg Tablet PO 05/20/25 09:04 600 mg ONCE ONE Administration Medical Decision Making Medical Decision Making MDM Narrative: 64-year-old right-hand dominant male with pmhx significant for depression, anxiety, diabetes, neuropathy, GERD, asthma/COPD, sarcoidosis, bipolar 2 disorder presents to the ED today with right wrist pain/swelling x3 days. Vital signs stable, afebrile. He is well-appearing and in no acute distress. On exam of RUE, minimal swelling note to dorsal/ventral aspect R wrist. no overlying erythema, ecchymosis, deformity. diffuse ttp, no crepitus, warmth, deformity. FROM intact to R wrist, mil pain indution on flexion. skein yarn dyer strength decreased to R. +tinnel sign. +phalen. finger strength intact. Differential diagnosis includes contusion, MSK sprain/strain, tendonitis, bursitis, gout, pseudogout, carpal tunnel syndrome, fracture. Unlikely neurovascular compromise, threat to limb, compartment syndrome, septic joint, Lyme arthritis. Plan xrs, pain control, and re-evaluation. Differential Diagnosis Differential Diagnoses: The differential diagnosis associated with the presentation includes As above Admission/Observation Not indicated Independent Interpretation I performed an independent interpretation of an: Plain X-Ray Interpretation: X-ray right wrist/forearm unremarkable, no fracture Radiology Impression Discussion of test interpretation with radiology: I have reviewed the radiologist's reading. Radiologist Impression: Date of Service: 05/20/25 Procedure(s): XR wrist RT 2V Accession Number(s): [id number] cc: Generic ED Physician; NAILA KERR MASTER CHEF~ EXAMINATION: XR WRIST 1-2 VIEWS RIGHT, XR FOREARM 2 VIEWS RIGHT HISTORY: trauma, pain and swelling COMPARISON: There are no prior studies available for comparison. FINDINGS: AP and lateral views of the right forearm and 4 views of the right wrist, including a scaphoid view are submitted. Osseous mineralization is normal. There is no fracture or dislocation. There is mild degenerative change involving the 1st carpometacarpal joint with joint space narrowing. The visualized portion of the elbow joint is maintained. There are vascular calcifications. XR/XR wrist RT 2V IMPRESSION: No evidence of fracture of the right wrist or forearm. Electronically signed by: Cali Benitez MD 05/20/2025 08:33 AM [facility] Procedure(s): XR forearm RT 2V Accession Number(s): [id number] cc: Generic ED Physician; NAILA KERR MASTER CHEF~ EXAMINATION: XR WRIST 1-2 VIEWS RIGHT, XR FOREARM 2 VIEWS RIGHT HISTORY: trauma, pain and swelling COMPARISON: There are no prior studies available for comparison. FINDINGS: AP and lateral views of the right forearm and 4 views of the right wrist, including a scaphoid view are submitted. Osseous mineralization is normal. There is no fracture or dislocation. There is mild degenerative change involving the 1st carpometacarpal joint with joint space narrowing. The visualized portion of the elbow joint is maintained. There are vascular calcifications. XR/XR forearm RT 2V IMPRESSION: No evidence of fracture of the right wrist or forearm. Electronically signed by: Cali Benitez MD 05/20/2025 08:33 AM EDT RP Procedures Orthopedic Splinting/Casting Injury #1: Side: right Upper Extremity Injury Location: wrist Upper Extremity Immobilizer: wrist splint Discharge Plan Discharge Clinical Impression: Carpal tunnel syndrome of right wrist Patient Disposition: Home, Self-Care Instructions: Carpal Tunnel Syndrome (DC) Additional Instructions: You were evaluated in the ED today for right wrist pain. Your exam is concerning for carpal tunnel syndrome. See home care instructions. You have been provided with a wrist brace. You may use this during the day however I would like for you to wear this primarily at night time while you sleep. Naproxen as an anti-inflammatory that has been sent to your pharmacy. You may take this every 12 hours as needed for pain/swelling. Follow up with orthopedic provider. You have been provided with a referral. Call them to establish care. They will not call you. Follow up with your primary care provider. Return with any new or worsening symptoms. In the case of an emergency call 911. Prescriptions: New naproxen 500 mg tablet 500 mg PO Q12H PRN (Reason: pain (scale score 1-3)) Qty: 20 0RF No Action bisacodyl [Dulcolax (bisacodyl)] 5 mg tablet,delayed release (DR/EC) 20 mg PO ONCE 1 Days Qty: 4 0RF Rx Instructions: take at noon the day before colonoscopy polyethylene glycol 3350 [Miralax] 17 gram/dose powder 238 g PO ONCE 1 Days Qty: 238 0RF Rx Instructions: the day before your procedure mix entire bottle with 64 ounces of a clear liquid. At 5pm drink 1 cup every 15 minutes until half is gone. At 10pm finish drinking remaining prep. duloxetine 30 mg Capsule,Delayed Release(Dr/Ec) 90 mg PO BEDTIME Qty: 90 0RF gabapentin 600 mg Tablet 600 mg PO TID Qty: 90 0RF quetiapine 200 mg Tablet 200 mg PO BEDTIME Qty: 30 0RF quetiapine 50 mg Tablet 50 mg PO BID@0800,1400 Qty: 60 0RF (DME) blood sugar diagnostic Strip See Rx Instructions Not Applicable BID Qty: 10 0RF Rx Instructions: As directed (DME) insulin syringe-needle U-100 [Insulin Syringe] 1 mL 29 gauge x 1/2 syringe See Rx Instructions .Route Qty: 100 0RF Rx Instructions: As directed (DME) lancets 33 gauge misc See Rx Instructions Not Applicable BID Qty: 100 0RF Rx Instructions: As directed prazosin 5 mg Capsule 10 mg PO BEDTIME Qty: 60 2RF Protocol: Hold for SBP< HOLD for SBP < : 90 prazosin 5 mg Capsule 5 mg PO DAILY Qty: 30 2RF Protocol: Hold for SBP< HOLD for SBP < : 90 insulin glargine [Lantus U-100 Insulin] 100 unit/mL Solution 20 unit subcut BEDTIME Qty: 10 2RF cyclobenzaprine 10 mg tablet 10 mg PO BEDTIME PRN (Reason: muscle spasm) Qty: 7 0RF insulin glargine [Lantus Solostar U-100 Insulin] 100 unit/mL (3 mL) insulin pen 24 unit subcut QAM Qty: 15 0RF Trulicity 0.75 mg/0.5 mL pen injector subcut clonazepam 0.5 mg tablet 0.5 mg PO DAILY PRN (DME) CPAP Machine/Device Device See Rx Instructions .Route Rx Instructions: As directed Trelegy Ellipta 100-62.5-25 mcg blister with device 1 inh inhalation DAILY 30 Days Qty: 60 11RF meloxicam 15 mg tablet 15 mg PO DAILY 30 Days Qty: 30 0RF albuterol sulfate 2.5 mg /3 mL (0.083 %) solution for nebulization 2.5 mg inhalation BID 30 Days Qty: 180 11RF albuterol sulfate [Ventolin HFA] 90 mcg/actuation HFA aerosol inhaler 2 puff inhalation Q4H PRN (Reason: bronchospasm) Qty: 6.7 11RF buspirone 10 mg tablet 10 mg PO TID Trulicity 1.5 mg/0.5 mL pen injector subcut Referrals: [facility] [Provider Group] Naila Kerr NP [Primary Care Provider, Internal Medicine] Print Language: Urdu
--- NOTE | 2025-05-20 09:02 | PC.NURSE ---
Patient is a 64-year-old male, with a past medical history of sarcoidosis followed by Dr. Hay, PTSD, bipolar II disorder, diabetes, neuropathy, glaucoma, asthma, and COPD, who presents to the emergency department with complaints of right wrist pain which began on Sunday after twisting a can of glue. Alert and oriented. Lungs clear bilat. Respirations even and non-labored. Abdomen soft, non-tender. Good right radial pulses with positive CSM. Patient c/o some numbness which is baseline secondary to his neuropathy which he takes gabapentin for.
[2025-05-20] MEDS: Ibuprofen 600 MG TABLET PO (09:09)
[2025-05-20 09:24] VITALS: BP 105/63; PULSE 80; RESP 16; TEMP 36.7; O2SAT 96
--- OUTSIDE RECORDS SUMMARY | 2025-05-20 09:50 | XMS_ITS | Clinical Summary ---
Author Organization [facility] Address [address] [place] [address] Phone Care Team Providers Care Physicist Solid [employer] Name Role Phone Cesilia Alston NP Primary Care Provider [phone] Allergies No known active allergies Medications oxyCODONE (OXY-IR) 5 mg immediate release capsule Take 1 capsule (5 mg total) by mouth every 6 (six) hours if needed for severe pain. Max Daily Amount: 20 mg 15 capsule 10/03/2024 Active Active Problems Problem Noted Date Diagnosed Date Neuropathy Encounters Date Type Department Care Team Description 05/19/2025 3:24 PM EDT - 05/20/2025 1:12 AM EDT Emergency [facility] Emergency [address] [place] [address] Discharge Disposition: Home or Self Care from Last 3 Months Medical History Medical History Date Comments Diabetes mellitus ([facility] V24, [facility] V28) Asthma Neuropathy Social History Tobacco Use Types [...] Sign Reading Time Taken Comments Blood Pressure 114/68 05/19/2025 8:22 PM EDT Pulse 88 05/19/2025 8:22 PM EDT Temperature 36.8 C (98.2 F) 05/19/2025 8:22 PM EDT Respiratory Rate 17 05/19/2025 8:22 PM EDT Oxygen Saturation 95% 05/19/2025 8:22 PM EDT Inhaled Oxygen Concentration - - Weight 104 kg (230 lb) 05/19/2025 3:31 PM EDT Height 182.9 cm (6') 05/19/2025 3:31 PM EDT Body Mass Index 31.19 05/19/2025 3:31 PM EDT Plan of Treatment Health Maintenance Due Date Last Done Comments Diabetes: Annual Foot Exam 1971 Diabetes: Annual Retina Eye Exam 1971 RSV Immunization Adult Patients (1 - Risk 60-74 years 1-dose series) 2021 Colorectal Cancer Screening: Colonoscopy 12/20/2023 HIV Screening 12/20/2023 Hepatitis C Screening 12/20/2023 Medicare Annual Wellness Visit 12/20/2023 Social Influencers of Health Screening 12/20/2023 Zoster Vaccines (2 of 2) 02/18/2024 12/24/2023 COVID-19 Vaccine (3 - 2023-2 5 season) 2024 04/28/2021, 03/31/2021 Diabetes: Annual Urine Albumin-Creatinine Ratio (uACR) 10/03/2024 Influenza Vaccine (Season Ended) 2025 10/25/2018 Diabetes: Blood Sugar Contro l Test (HGBA1C) 07/30/2025 01/27/2025, 10/21/2024, 07/18/2024 Depression Screening 10/21/2025 10/21/2024 Diabetes: [...] age to complete this topic Meningococcal B Vaccine Aged Out No l onger eligible based on patient's age to complete this topic RSV Immunization Patients Under 20 months Aged Out No longer eligible b ased on patient's age to complete this topic Varicella Vaccines Aged Out No longer eligible based on patient's age to complete this topic Procedures Procedure Name Priority Date/Time Associated Diagnosis Comments XR WRIST 3+ VIEWS RIGHT STAT 05/19/2025 3:49 PM EDT COMPREHENSIVE METABOLIC PANEL STAT 01/10/2025 12:12 PM EST from Last 3 Months or Most Recently Relevant to Health Maintenance Results * XR Wrist 3+ Views Right (05/19/2025 3:49 PM EDT) Anatomical Region Laterality Modality Upper Extremities, Wrist Right Radiogr aphic Imaging 05/19/2025 4:35 PM EDT Impressions 05/19/2025 4:36 PM EDT FINDINGS/IMPRESSION: Degenerative changes of the wrist with radiocarpal joint space narrowing and degenerative changes of the 1st CMC. No acute fracture. Normal alignment. -------- FINAL REPORT -------- Dictated By: Leslie Noe Dictated Date: 05/19/2025 16:35 ET Assigned Physician: Leslie Noe Reviewed and Electronically Signed By: Leslie Noe Signed Date: 05/19/2025 16:36 ET Workstation ID: [id number] Transcribed By: Self Edit Transcribed Date: 05/19/2025 16:35 ET Narrative 05/19/2025 4:36 PM EDT XR WRIST 3+ VIEWS RIGHT INDICATION: Pain, unspecified TECHNIQUE: XR WRIST 3+ VIEWS RIGHT COMPARISON: No priors available. Procedure Note Leslie Noe MD - 05/19/2025 XR WRIST 3+ VIEWS RIGHT INDICATION: Pain, unspecified TECHNIQUE: XR WRIST 3+ VIEWS RIGHT COMPARISON: No priors available. IMPRESSION: FINDINGS/IMPRESSION: Degenerative changes of the wrist with radiocarpaljoint space narrowing and degenerative changes of the 1st CMC. No acutefracture. Normal alignment. -------- FINAL REPORT -------- Dictated By: Leslie Noe Dictated Date: 05/19/2025 16:35 ET Assigned Physician: Leslie Noe Reviewed and Electronically Signed By: Leslie Noe Signed Date: 05/19/2025 16:36 ET Workstation ID: [id number] Transcribed By: Self Edit Transcribed Date: 05/19/2025 16:35 ET us [facility] Jaime Gargny Jacek DO IMG XR PROCEDURES Final R esult * (ABNORMAL) Comprehensive metabolic panel (01/10/2025 12:12 PM EST) Sodium 135 133 - 145 mmol/L LAB CHEMISTRY METHOD 01/10/2025 1:05 PM [facility] Potassium 4.1 3.5 - 5.5 mmol/L LAB CHEMISTRY METHOD 01/10/2025 1:05 PM [facility] Chloride 105 96 - 110 mmol/L LAB CHEMISTRY METHOD 01/10/2025 1:05 PM [facility] CO2 24 21 - 32 mmol/L LAB CHEMISTRY METHOD 01/10/2025 1:05 PM [facility] Anion Gap 6 3 - 11 LAB CHEMISTRY METHOD 01/10/2025 1:05 PM [facility] Glucose 382(H) 70 - 100 mg/dL LAB CHEMISTRY METHOD 01/10/2025 1:05 PM [facility] BUN 14 5 - 25 mg/dL LAB CHEMISTRY METHOD 01/10/2025 1:05 PM [facility] Creatinine 1.19 0.70 - 1.30 mg/dL LAB CHEMISTRY METHOD 01/10/2025 1:05 PM [facility] eGFR 69 >=60 mL/min/1. 73m2 LAB CHEMISTRY METHOD 01/10/2025 1:05 PM [facility] Comment:Calculation based on the Chronic Kidney Disease Epidemiology Collaboration (CKD-EPI) equation refit without adjustment for race. BUN/Creatinine Ratio 11.8 LAB CHEMISTRY METHOD 01/10/2025 1:05 PM [facility] Calcium 8.7 8.5 - 10.5 mg/dL LAB CHEMISTRY METHOD 01/10/2025 1:05 PM [facility] AST (SGOT) 13 10 - 42 unit/L LAB CHEMISTRY METHOD 01/10/2025 1:05 PM [facility] ALT (SGPT) 33 10 - 60 unit/L LAB CHEMISTRY METHOD 01/10/2025 1:05 PM [facility] Alkaline Phosphatase 151(H) 42 - 121 unit/L LAB CHEMISTRY METHOD 01/10/2025 1:05 PM [facility] Total Protein 7.1 6.0 - 8.0 g/dL LAB CHEMISTRY METHOD 01/10/2025 1:05 PM [facility] Albumin 3.9 3.2 - 5.0 g/dL LAB CHEMISTRY METHOD 01/10/2025 1:05 PM [facility] Total Bilirubin 0.7 0.0 - 1.4 mg/dL LAB CHEMISTRY METHOD 01/10/2025 1:05 PM [facility] Blood Venous blood specimen / Unknown Venipuncture / Unknown 01/10/2025 12:12 PM EST 01/10/2025 12:16 PM EST us [place] [facility] BLOOD ORDERABLES Final R esult [facility] [address] [place] [address], [place] [phone] from Last 3 Months or Most Recently Relevant to Health Maintenance Insurance [employer] Member Subscriber Plan / Payer (Ef fective 2018-Present) Name:DICK ROSALES Relation to Subscriber:Self Name:Dick Rosales Sr Payer ID:[id number] Group ID:[id number] Type:Not on file Address: [facility] [address] [id number] Care Teams Physicist [employer] [place] Relationship Specialty Start Date End Date Cesilia Alston NP [address] [place] [phone] PCP - General 10/03/24
== END 2025-05-20 09:25 | disposition home or self-care (01) ==
PROVIDERS: Emergency Provider Emergency Medicine; PCP Nurse Practitioner Primary Care
DX: G56.01 Carpal tunnel syndrome, right upper limb (principal); M25.531 Pain in right wrist; Z79.899 Other long term (current) drug therapy
CPT/HCPCS: 29125; 73090; 73100; 99283; 99284

== ENCOUNTER 2025-06-05 13:01 | Outpatient (AMB) | payer OTHER, SELFPAY ==
--- NOTE | 2025-06-05 13:04 | A.OFFVIS_ITS ---
Vital Signs 06/05/25 13:05 Height 5 ft 9 in Weight 227 lb 1.218 oz BMI 33.5 BP 104/66 Blood Pressure Location Rt brachial Position Sitting Pulse 88 Pulse Source Pulse Oximeter Pulse Oximetry (%) 97 Oxygen Delivery Method Room Air Intake Visit Reasons: Dyspnea Allergies No Known Allergies Allergy (Verified 06/05/25 13:08) HPI Comments Details: The patient is a 64-year-old gentleman with a known history sarcoidosis biopsy- proven approximately years ago with a mediastinoscopy. Patient is also active smoker. He has been developing worsening respiratory symptoms in the last few months. Severity. Did go to the ER he had a CT scan of the chest done which was personally reviewed by me demonstrating patchy areas opacities. No significant lymphadenopathy and no evidence of any pulmonary emboli. He was given short-acting beta agonist that he has been using several times a day with partial resolution his symptoms. The office he was found to be significantly wheezy and rhonchorous. He did receive 2 treatments with DuoNeb which significantly helped. The patient does have a history mood disorders and the use of systemic steroids usually to destabilize for that reason try avoid any systemic steroids at this time. The patient also undergo blood work in addition to function studies. I did reassure the patient that the on CT scan warrant likely related to reactivation his sarcoidosis. However, that was related to pneumonitis his cigarette smoking or any hypersensitivity reaction. 05/09/2022 the patient is here for a pulmonary follow-up visit. Overall the patient seems to be doing overall better. Although the last week or 2 he has had worsening respiratory symptoms and cough. He did respond well to the Trelegy inhaler but then he ran out and has not been using any. He still has his rescue inhaler. He did feel better while being on the maintenance therapy. Patient also continues to smoke cigarettes. He has been trying to cut down. The patient appears to be motivated he continued cutting now. We did review his last CT scan of the chest that was done back in April 2021 demonstrating r esolution of some nodular densities. Although he had other areas of ground- glass opacities suggesting pneumonitis. Will plan to repeat the CT scan in a couple months. 10/13/2022 the patient is here for pulmonary follow-up visit. overall the patient is feeling better from a respiratory status. Still complains of some shortness of breath with activity mild in severity. also, has intermittent cough typically did productive of clear sputum. Likely related to his smoking. The Trelegy inhaler has been helpful. He also has a rescue inhaler that he uses as needed although he has not required it. He still dealing with smoking. He is trying to cut down. We did encourage him to do so. I also did review his recent CT scan of chest with him. It appears that some of the areas of pneumon itis have improved in his airway disease also has improved. Overall it is reassuring CT scan. Next year will be a good candidate for the lung cancer screening program. 04/13/2023 the patient is here for pulmonary follow-up visit. The patient is feeling unwell. The patient states that he did have issues with anxiety and his PT is he has been acting up any went to the [facility]. There she was noted to have having chest congestion and cough and had an x-ray done. I do not have those results. The patient since then has been having worsening symptoms with significant chest congestion and shortness of breath. Moderate severity. He has been using his inhalers although he has lost track and has not been using his Trelegy. Only his rescue inhaler. I again the reeducated him about his inh ricky. The patient on exam does have some rhonchi and crackles on the right lung. Indeed he may have bronchopneumonia. Therefore will go ahead and treat him with couple antibiotics to treat for community-acquired pneumonia and also continue with respiratory therapy. If the patient is no better he is to call the office for an earlier assessment. In the meantime will see about getting him scheduled soon in the coming weeks for follow-up visit with an x-ray. 08/31/2023 the patient is here for a pulmonary follow-up visit. The patient overall has been doing well. Stopped using the Trelegy. The patient understands the needs to continue on daily basis. Otherwise medications not going to be effective for him. He does have increased cough and some shortness of breath with activity. Has been using his rescue inhaler at least daily. He understands that once he restarts the Trelegy he will not need it as often. Unfortunately continues smoking cigarettes. He is trying to cut down although is very hard for him to quit altogether. He had a chest x-ray back in March 2023 demonstrating no acute disease therefore resolving the lower respiratory infection. He is scheduled to continue with the lung cancer screening program. Although, not adherent to the program at this time. 03/07/2024 the patient is here for a pulmonary follow-up visit. Since we last spoke he became homeless and he had to go to a senior living. He was having issues with alcohol abuse and also continues to smoke cigarettes. He did finally go to a rehabilitation program where he was accepted and currently participating. He is subsequently quit smoking and has been working on his alcohol sobriety. Overall the patient has been doing well. He has been using his respiratory therapy as prescribed. The patient has not had any recent imaging studies. In view of his smoking history he has a great candidate for the lung cancer screening program. His broken most of his life just recently quit about a week ago. He has a greater than 30 pack-year history of smoking. 09/15/2024 the patient is here for a pulmonary follow-up visit. Overall. Use the Trelegy data has not had to use his rescue inhaler often. Typically less than twice a week. In addition to that he has not nebulizer. I will make sure to send him prescriptions for him to have refills. His last imaging study of the chest was back in the spring when he had a low-dose CT scan demonstrating stable pulmonary nodules. No evidence of any pneumonitis. The patient however has 2 thyroid nodules. They do need follow-up. I will make sure to explain to the patient that he needs to follow-up with his primary care doctor or endocrine regarding those thyroid nodules. From a pulmonary standpoint the patient is doing well will continue to encourage him to quit smoking. He is down to 1 pack lasting him every 3 days. I am hopeful that he can continue quitting altogether. The patient is doing a lot better overall. 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 We did talk about vaccines. The patient is not interested in the flu with the COVID vaccine. No the RSV. I did encourage him to consider at least getting the pneumonia vaccine. 06/05/2025 the patient is here for a pulmonary follow-up visit. The patient overall has been doing okay although now with the he and humidity of the summer he has been noticing some increased chest tightness and wheezing. He ran out of his medications. I did re-educate him about the Trelegy inhaler venous maintenance inhaler and has a use it daily. He also needs to rinse and gargle. And then his rescue medicine I will make sure to provide to the pharmacy. The patient is also participating in the lung cancer screening program. His last CT scan was back in March 2024 and should have another CAT scan now. I did reach out to the lung cancer screening program in order for him to be rescheduled. They will call him with the day. In the meantime the patient is going to continue with the current respiratory therapy if he has any issues he will call. The patient follow-up in the springtime if he has any issues prior to that he will call for further recommendations. [facility] Medical History Thyroid nodule Pulmonary nodules Tobacco dependence Bronchopneumonia Post traumatic stress disorder (PTSD) Bipolar II disorder Hallucination, visual Chronic bronchitis with wheezing Asthma-COPD overlap syndrome Pneumonitis Hyperhidrosis Back pain Diabetes Neuropathy Anxiety PTSD (post-traumatic stress disorder) Depression Gout Sarcoidosis GERD (gastroesophageal reflux disease) Surgical History History of bronchoscopy Hx of colonoscopy Family History Father Myocardial infarction Mother No problems noted. Social History Household Members: None Housing: House Housing Other:: rent Do you presently have visiting nurse or other home services: Yes Alcohol intake: current Alcohol intake frequency: holidays/special occasions only Patient Tobacco Use Status: Current everyday Tobacco user Tobacco use type: Cigarette Cigarette Packs Per Day: 1 Cigarettes Per Day: 7 Years Smoked: 52, prior 2 ppd smoker since age of 10 e-Cigarette/Vaping Use: Never Used Second Hand Smoke Exposure: Yes Substance Use Type: Marijuana service: No Sexual orientation: Straight/Heterosexual Review of Systems Const Denies chills, Denies fatigue and Denies fever(s) Eyes Denies change in vision ENT Reports Normal hearing present Card Denies chest pain, Denies chest pain at rest, Denies chest pain with activity, Denies pedal edema and Reports dyspnea on exertion Resp Reports cough, Reports dyspnea on exertion and Denies wheezing GI Denies abdominal pain Musc Denies abnormal gait, Denies muscle cramps and Denies radiating pain into limb Skin/Breast Denies skin ulcer and Denies wounds Neuro Reports Normal hearing present and Denies abnormal gait Psych Reports no additional complaints Endo Denies fatigue Aller/Immun Denies wheezing Physical Exam Vital Signs: Last Vital Signs Pulse 88 06/05/25 13:05 BP 104/66 06/05/25 13:05 Pulse Ox 97 06/05/25 13:05 Oxygen Delivery Method Room Air 06/05/25 13:05 BMI result Body Mass Index 33.5 Const General: alert Neck Neck: Yes normal visual inspection, Yes full ROM and Yes no lymphadenopathy Chest Chest palpation & inspection: normal inspection of the chest Resp Auscultation: no rhonchi, no wheezes and diminished lung sounds Cardio Rate: regular rate Rhythm: regular rhythm Heart sounds: S1 normal heart sound present and S2 normal heart sound present GI Palpation (GI): Soft to palpation and nontender Auscultation: normal bowel sounds Skin General skin exam: rashes and/or lesions noted Neuro Cranial nerves: Yes Normal hearing present Assessment & Plan Assessment & Plan (1) Sarcoidosis: Comment: Remission Code(s): D86.9 - Sarcoidosis, unspecified Category: Medical (2) Asthma-COPD overlap syndrome: Code(s): J44.9 - Chronic obstructive pulmonary disease, unspecified Category: Medical (3) Tobacco dependence: Code(s): F17.200 - Nicotine dependence, unspecified, uncomplicated Category: Medical (4) Pulmonary nodules: Code(s): R91.8 - Other nonspecific abnormal finding of lung field Category: Medical (5) Thyroid nodule: Code(s): E04.1 - Nontoxic single thyroid nodule Category: Medical Plan Trelegy inhaler short-acting beta needed continue nebulizer As needed tobacco cessation, quitting down LDCT spring 2024 not done, will be scheduled follow-up 8-12 months Medications: Refilled locollgdrkk-qkkmppeyn-mfnvaptw 100-62.5-25 mcg (Trelegy Ellipta) 1 inh inhalation DAILY 60 ea 11RF 30 days J44.9 - Chronic obstructive pulmonary disease, unspecified albuterol sulfate 2.5 mg (3 mL) inhalation BID 180 mL 11RF 30 days J44.9 - Chronic obstructive pulmonary disease, unspecified albuterol sulfate 90 mcg/actuation (Ventolin HFA) 2 puffs inhalation Q4H PRN 6.7 grams 11RF bronchospasm Coding Level of Care Code Est Pt Level 4 (97274) Diagnoses Sarcoidosis D86.9 Asthma-COPD overlap syndrome J44.9 Tobacco dependence F17.200 Pulmonary nodules R91.8 Thyroid nodule E04.1 Time Spent (min) 17
[2025-06-05 13:05] VITALS: BP 104/66; PULSE 88; O2SAT 97; BMI 33.5
--- OUTSIDE RECORDS SUMMARY | 2025-06-05 13:06 | XMS_ITS | Encounter Summary ---
Author Organization [facility] Address [address] [place] [address] [address] [place] [address] Care Team Providers Care Souvenir And Novelty Maker Name Role Phone Philomena Pereira Primary Care Provider [phone] Ritika Marsh MD Primary Care Pro vider Cesilia Alston Primary Care Provider [phone] Lor Goldstein PharmD Unavailable Encounter Details Date Type Department Care Team (Late st Contact Info) Description 12/04/2022 Orders Only [facility] PEDS [address] [place] [address] Samantha Cast LPN Social History Tobacco Use [...] Care Team (Late st Contact Info) Description 07/21/2025 9:30 AM EDT Office Visit [facility] [address] [place], [place] [phone] Cesilia Alston ANP [address] [place] [address] documented as of this encounter Visit Diagnoses Not on filedocumented in this encounter Care Teams Souvenir And Novelty Maker Relationship Specialty Start Date End Date Philomena Pereira FNP PCP - General Family Medicine 10/16/22 05/31/23 Ritika Marsh MD [address] [place] [phone] PCP - General Internal Medicine 06/01/23 10/23/23 Cesilia Alston ANP [address] [place] [id number] PCP - General Family Medicine 10/24/23 Lor Goldstein PharmD [address] [place] [address] [phone] Pharmacist Internal Medicine 02/15/25 documented as of this encounter
--- OUTSIDE RECORDS SUMMARY | 2025-06-05 13:06 | XMS_ITS | Clinical Summary ---
Author Organization [facility] Address [address] [place] [address] Phone Care Team Providers Care Cement Tile Maker Name Role Phone Cesilia Alston NP Primary Care Provider [phone] Allergies No known active allergies Medications oxyCODONE [...] EDT - 05/20/2025 1:[address] [facility] Emergency [address] [place] [address] Discharge Disposition: Home or Self Care from Last 3 Months Medical History Medical History Date Comments Diabetes mellitus ([facility] V24, [facility] V28) Asthma Neuropathy Social History Tobacco Use [...] Urine Albumin-Creatinine Ratio (uACR) 10/03/2024 Influenza Vaccine (#1) 2025 10/25/2018 Diabetes: Blood Sugar Contro l [...] alignment. -------- FINAL REPORT -------- Dictated By: Lesile Noe Dictated Date: 05/19/2025 16:35 ET Assigned Physician: Leslie Noe Reviewed and Electronically Signed By: Leslie Noe Signed Date: 05/19/2025 16:36 ET Workstation ID: [id number] Transcribed By: Self Edit Transcribed Date: 05/19/2025 [...] Signed Date: 05/19/2025 16:36 ET Workstation ID: [id number] Transcribed By: Self Edit Transcribed Date: 05/19/2025 16:35 ET us Roxann Sandoval Eliazar Jacek DO IMG XR PROCEDURES Final R esult * (ABNORMAL) Comprehensive metabolic panel (01/10/2025 12:12 PM EST) Sodium 135 133 - 145 mmol/L LAB CHEMISTRY METHOD 01/10/2025 1:05 PM [facility] Potassium 4.1 3.5 - 5.5 mmol/L LAB CHEMISTRY METHOD 01/10/2025 1:05 PM [facility] Chloride 105 96 - 110 mmol/L LAB CHEMISTRY METHOD 01/10/2025 1:05 PM [facility] CO2 24 21 - 32 mmol/L LAB CHEMISTRY METHOD 01/10/2025 1:05 PM [facility] Anion Gap 6 3 - 11 LAB CHEMISTRY METHOD 01/10/2025 1:05 PM [facility] Glucose 382(H) 70 - 100 mg/dL LAB CHEMISTRY METHOD 01/10/2025 1:05 PM [facility] BUN 14 5 - 25 mg/dL LAB CHEMISTRY METHOD 01/10/2025 1:05 PM [facility] Creatinine 1.19 0.70 - 1.30 mg/dL LAB CHEMISTRY METHOD 01/10/2025 1:05 PM [facility] eGFR 69 >=60 mL/min/1. 73m2 LAB CHEMISTRY METHOD 01/10/2025 1:05 PM [facility] Comment:Calculation based on the Chronic Kidney Disease Epidemiology Collaboration (CKD-EPI) equation refit without adjustment for race. BUN/Creatinine Ratio 11.8 LAB CHEMISTRY METHOD 01/10/2025 1:05 PM [facility] Calcium 8.7 8.5 - 10.5 mg/dL LAB CHEMISTRY METHOD 01/10/2025 1:05 PM [facility] AST (SGOT) 13 10 - 42 unit/L LAB CHEMISTRY METHOD 01/10/2025 1:05 PM [facility] ALT (SGPT) 33 10 - 60 unit/L LAB CHEMISTRY METHOD 01/10/2025 1:05 PM [facility] Alkaline Phosphatase 151(H) 42 - 121 unit/L LAB CHEMISTRY METHOD 01/10/2025 1:05 PM [facility] Total Protein 7.1 6.0 - 8.0 g/dL LAB CHEMISTRY METHOD 01/10/2025 1:05 PM [facility] Albumin 3.9 3.2 - 5.0 g/dL LAB CHEMISTRY METHOD 01/10/2025 1:05 PM [facility] Total Bilirubin 0.7 0.0 - 1.4 mg/dL LAB CHEMISTRY METHOD 01/10/2025 1:05 PM [facility] Blood Venous blood specimen / Unknown Venipuncture / Unknown 01/10/2025 12:12 PM EST 01/10/2025 12:16 PM EST us [place] [facility] BLOOD ORDERABLES Final R esult [facility] [address] [place] [address], from Last 3 Months or Most Recently Relevant to Health Maintenance Insurance MEDICARE Member Subscriber Plan / Payer (Ef fective 2018-Present) Name:MUNIR ROSALESUEL Relation to Subscriber:Self Name:BobbyMunirDick Sr Payer ID:[id number] Group ID:[id number] Type:Not on file Address: [place] [address] [address] [phone] Care Teams Cement Tile Maker Relationship Specialty Start Date End Date Cesilia Alston NP [address] [place] [phone] PCP - General 10/03/24
== END 2025-06-05 13:17 | disposition home or self-care (01) ==
LOC: HO.HPS 13:02
PROVIDERS: PCP Nurse Practitioner Primary Care; Visit Provider Hospitalist
DX: D86.9 Sarcoidosis, unspecified (principal); J44.9 Chronic obstructive pulmonary disease, unspecified; F17.200 Nicotine dependence, unspecified, uncomplicated; R91.8 Other nonspecific abnormal finding of lung field; E04.1 Nontoxic single thyroid nodule
CPT/HCPCS: 99214

== ENCOUNTER → 2025-06-05 13:01 | Outpatient (BNVA) | payer OTHER, SELFPAY | PROVIDERS: PCP Nurse Practitioner Primary Care; Visit Provider Hospitalist | DX: E04.1 Nontoxic single thyroid nodule (principal); J44.9 Chronic obstructive pulmonary disease, unspecified; D86.9 Sarcoidosis, unspecified; F17.200 Nicotine dependence, unspecified, uncomplicated; R91.8 Other nonspecific abnormal finding of lung field | CPT/HCPCS: 99212 ==

== ENCOUNTER 2025-06-24 14:32 | Outpatient (REF) | payer OTHER, SELFPAY ==
--- NOTE | ~2025-06-24 | XR_ITS ---
EXAMINATION: XR PELVIS CLINICAL INFORMATION: Pain in right COMPARISON: September 15, 2019. TECHNIQUE: AP view of the pelvis. FINDINGS: Bony pelvis is intact. No acute cortical disruption or malalignment in either hip. Sclerosis along the articular surface of the acetabulum, the left side XR/XR pelvis 1-2V IMPRESSION: No acute fracture. Osteoarthrosis both hips. Electronically signed by: Ranjith Rai MD 06/24/2025 02:50 PM EDT
--- OUTSIDE RECORDS SUMMARY | 2025-06-24 15:14 | XMS_ITS | Clinical Summary ---
Author Organization [facility] Address [address] [place] [address] Phone Care Team Providers Care Head Of Maintenance Name Role Phone Ceislia Alston NP Primary Care Provider [phone] Allergies No known active allergies Medications oxyCODONE [...] EDT - 05/20/2025 1:12 AM EDT Emergency [facility] Emergency [address] [place] [address] Discharge Disposition: Home or Self Care from Last 3 Months Medical History Medical History Date Comments Diabetes mellitus ([facility] V24, [facility] V28) Asthma Neuropathy Social History Tobacco Use [...] Diabetes: Annual Urine Albumin-Creatinine Ratio (uACR) 10/03/2024 Depression Screening 11/26/2024 Influenza Vaccine (#1) 2025 10/25/2018 Diabetes: Blood Sugar Contro l Test (HGBA1C) 07/30/2025 01/27/2025, 10/21/2024, 07/18/2024 Diabetes: Annual GFR (Glomerular Filtration Rate) 01/10/2026 [...] Signed Date: 05/19/2025 16:36 ET Workstation ID: [id number] Transcribed By: Self Edit Transcribed Date: 05/19/2025 [...] Signed Date: 05/19/2025 16:36 ET Workstation ID: [id number] Transcribed By: Self Edit Transcribed Date: 05/19/2025 16:35 ET us Roxann Gargny Jacek DO IMG XR PROCEDURES Final R esult * (ABNORMAL) Comprehensive metabolic panel (01/10/2025 12:12 PM EST) Sodium 135 133 - 145 mmol/L LAB CHEMISTRY METHOD 01/10/2025 1:[address] [facility] Potassium 4.1 3.5 - 5.5 mmol/L LAB CHEMISTRY METHOD 01/10/2025 1:[address] [facility] Chloride 105 96 - 110 mmol/L LAB CHEMISTRY METHOD 01/10/2025 1:[address] [facility] CO2 24 21 - 32 mmol/L LAB CHEMISTRY METHOD 01/10/2025 1:[address] [facility] Anion Gap 6 3 - 11 LAB CHEMISTRY METHOD 01/10/2025 1:[address] [facility] Glucose 382(H) 70 - 100 mg/dL LAB CHEMISTRY METHOD 01/10/2025 1:[address] [facility] BUN 14 5 - 25 mg/dL LAB CHEMISTRY METHOD 01/10/2025 1:[address] [facility] Creatinine 1.19 0.70 - 1.30 mg/dL LAB CHEMISTRY METHOD 01/10/2025 1:[address] [facility] eGFR 69 >=60 mL/min/1. 73m2 LAB CHEMISTRY METHOD 01/10/2025 1:[address] [facility] Comment:Calculation based on the Chronic Kidney Disease Epidemiology Collaboration (CKD-EPI) equation refit without adjustment for race. BUN/Creatinine Ratio 11.8 LAB CHEMISTRY METHOD 01/10/2025 1:[address] [facility] Calcium 8.7 8.5 - 10.5 mg/dL LAB CHEMISTRY METHOD 01/10/2025 1:[address] [facility] AST (SGOT) 13 10 - 42 unit/L LAB CHEMISTRY METHOD 01/10/2025 1:[address] [facility] ALT (SGPT) 33 10 - 60 unit/L LAB CHEMISTRY METHOD 01/10/2025 1:[address] [facility] Alkaline Phosphatase 151(H) 42 - 121 unit/L LAB CHEMISTRY METHOD 01/10/2025 1:[address] [facility] Total Protein 7.1 6.0 - 8.0 g/dL LAB CHEMISTRY METHOD 01/10/2025 1:[address] [facility] Albumin 3.9 3.2 - 5.0 g/dL LAB CHEMISTRY METHOD 01/10/2025 1:[address] [facility] Total Bilirubin 0.7 0.0 - 1.4 mg/dL LAB CHEMISTRY METHOD 01/10/2025 1:[address] [facility] Blood Venous blood specimen / Unknown Venipuncture / Unknown 01/10/2025 12:12 PM EST 01/10/2025 12:16 PM EST us [place] [facility] BLOOD ORDERABLES Final R esult [facility] [address] [place] [address], [place] [phone] from Last 3 Months or Most Recently Relevant to Health Maintenance Insurance MEDICARE Member Subscriber Plan / Payer (Ef fective 2018-Present) Name:KLEBER ROSALESUEL Relation to Subscriber:Self Name:Dick Rosales Sr Payer ID:[id number] Group ID:[id number] Type:Not on file Address: [facility] [address] [phone] Care Teams Head Of Maintenance Relationship Specialty Start Date End Date Cesilia Alston NP [address] [place] [phone] PCP - General 10/03/24
--- OUTSIDE RECORDS SUMMARY | 2025-06-24 15:14 | XMS_ITS | Encounter Summary ---
Author Organization [facility] Address [address] [place] [address] [address] [place] [address] Care Team Providers Care Classifier Operator Name Role Phone Philomena Pereira Primary Care Provider [phone] Ritika Marsh MD Primary Care Pro vider Cesilia Alston Primary Care Provider [phone] Lor Goldstein PharmD Unavailable [phone] Encounter Details Date Type Department Care Team (Late st Contact Info) Description 12/04/2022 Orders Only [facility] MED & PEDS [address] [place] [address] Samantha Cast LPN Social History Tobacco Use [...] Description 07/21/2025 9:30 AM EDT Office Visit [facility] MEDICINE [address] [place], [place] [phone] Cesilia Alston ANP [address] [place] [address] documented as of this encounter Visit Diagnoses Not on filedocumented in this encounter Care Teams Classifier Operator Relationship Specialty Start Date End Date Philomena Pereira FNP PCP - General Family Medicine 10/16/22 05/31/23 Ritika Marsh MD [address] [place] [id number] PCP - General Internal Medicine 06/01/23 10/23/23 Cesilia Alston ANP [address] [place] [address] [phone] PCP - General Family Medicine 10/24/23 Lor Goldstein PharmD [address] [place] [address] [phone] Pharmacist Internal Medicine 02/15/25 documented as of this encounter
== END 2025-06-24 14:33 | disposition home or self-care (01) ==
LOC: HO.HHCX 14:32
PROVIDERS: Visit Provider Internal Medicine
DX: M25.551 Pain in right hip (principal)
CPT/HCPCS: 72170

== ENCOUNTER → 2025-06-24 14:32 | Outpatient (BNV) | payer OTHER, SELFPAY | PROVIDERS: Visit Provider Radiology Diagnostic Radiology | DX: M16.0 Bilateral primary osteoarthritis of hip (principal) | CPT/HCPCS: 72170 ==

== ENCOUNTER 2025-08-03 08:05 | Outpatient (REF) | payer OTHER, SELFPAY ==
--- OUTSIDE RECORDS SUMMARY | 2025-08-03 08:41 | XMS_ITS | Encounter Summary ---
Author Organization [employer] Address [address] [facility] [address] [place] [address] Care Team Providers Care Paver Layer Name Role Phone Cesilia Alston Primary Care Provider [phone] Lor Goldstein PharmD Unavailable [phone]- [phone] Reason for Visit * Reason Comments Med Refill Encounter Details Date Type Department Care Team ([facility] Contact Info) Description 07/25/2024 Refill [facility] MED & PEDS [address] [place] [address] Ryann Watson MD [address] [place] [address] Social History Tobacco Use Types Packs/Day Years Used Date Smoking Tobacco: Every Day Cigarettes Passive Smoke Exposure: Current Smokeless Tobacco: Never Comments:Smoked < 1/2 PPD bu t unk if continues Housing Stability Answer Date Recorded What is your housing situation today? I have inezsabra rojas 03/26/[address] you [...] Care Team (Late st Contact Info) Description 08/24/2025 3:30 PM EDT Medication Management [facility] MEDICINE [address] [place] [address] Lor Goldstein PharmD [address] [place] [address] documented as of this encounter Goals Goal Patient Goal Type Associated Problems Recent Progress Patient-Stated? Author Take your medication every day Lifestyle No Shannan Rojas PharmD documented as of this encounter Visit Diagnoses Not on filedocumented in this encounter Care Teams Paver Layer Relationship Specialty Start Date End Date Cesilia Alston ANP [address] [place] [address] PCP - General Family Medicine 10/24/23 Lor Goldstein PharmD [address] [place] [address] Pharmacist Internal Medicine 02/15/25 documented as of this encounter
--- OUTSIDE RECORDS SUMMARY | 2025-08-03 08:41 | XMS_ITS | Encounter Summary ---
Author Organization [employer] Address [address] [facility] 7[address] [place] [address] Care Team Providers Care Pressroom Worker Name Role Phone Cesilia Alston Primary Care Provider [phone] Lor Goldstein PharmD Unavailable [phone]- [phone] Reason for Visit * Reason Onset Date Comments Discharging Patient 11/06/2023 Encounter Details Date Type Department Care Team ([facility] st Contact Info) Description 11/06/2023 Telephone [facility] MEDICINE 230 [place] [address] Cesilia Alston ANP 230 [place] [address] Discharging Patient Social History Tobacco Use Types Packs/Day Years Used Date Smoking Tobacco: Never Assessed Housing Stability Answer Date Recorded What is your housing situation today? I do not have housing (Staying with others, in a hotel, in a residential, living outside on the street, on a [...] and denying services. Please contact Roberto @ [phone] documented in this encounter Plan of Treatment Upcoming Encounters Date Type Department Care Team (Late st Contact Info) Description 08/24/2025 3:30 PM EDT Medication Management [facility] MEDICINE [address] [place] [address] Lor Goldstein PharmD [address] [place] [address] documented as of this encounter Visit Diagnoses Not on filedocumented in this encounter Care Teams Pressroom Worker Relationship Specialty Start Date End Date Cesilia Alston ANP [address] [place] [address] PCP - General Family Medicine 10/24/23 Lor Goldstein PharmD [address] [place] [address] Pharmacist Internal Medicine 02/15/25 documented as of this encounter
--- OUTSIDE RECORDS SUMMARY | 2025-08-03 08:41 | XMS_ITS | Encounter Summary ---
Author Organization [employer] Address 75 [facility] [address] [address] Care Team Providers Care Energy Systems Laboratory Director Name Role Phone Cesilia Alston FAISAL Primary Care Provider [phone] Lor Goldstein PharmD Unavailable [phone] Reason for Visit * Reason Onset Date Comments Prior Authorization 07/29/2025 Encounter Details Date Type Department Care Team (Late st Contact Info) Description 07/29/2025 Telephone [facility] MEDICINE 230 [place] [address] Lor Goldstein, PharmD 230 [place], [place] [phone] Prior Authorization Social History Tobacco Use Types Packs/Day Years Used Date Smoking Tobacco: Every Day Cigarettes 0.3 0.6 Started: 12/14/2024; Last attempted to quit: 2020 Passive Smoke Exposure: Current Smokeless Tobacco: Never Depression Answer Date Recorded Patient Health Questionnaire-9 Score 0 10/21/2024 Patient Health Questionnaire-9 Score 0 10/21/2024 Last PHQ-9: Questionnaire Data Not on file 1 12/21/2023 Housing Stability Answer Date Recorded What is your housing situation today? I do not have housing (Staying with others, in a hotel, in a assisted, living outside on the street, on a [...] encounter Miscellaneous Notes * Telephone Encounter - Lor Goldstein PharmD - 07/29/2025 8:27 AM EDT To prevent duplicate PA efforts: [facility] for [employer] system Corry 3 plus. Thank you! documented in this encounter Plan of Treatment Upcoming Encounters Date Type Department Care Team (Late st Contact Info) Description 08/24/2025 3:30 PM EDT Medication Management [facility] MEDICINE [address] [place] [address] Lor Goldstein PharmD [address] [place] [address] documented as of this encounter Goals Goal Patient Goal Type Associated Problems Recent Progress Patient-Stated? Author Take your medication every day Lifestyle No Shannan Rojas, Chandu documented as of this encounter Visit Diagnoses Not on filedocumented in this encounter Additional Health Concerns Assessment Noted Time PHQ-9 Depression Total Score: 0 10/21/20 24 10:30 AM EST documented as of this encounter Care Teams Energy Systems Laboratory Director Relationship Specialty Start Date End Date Cesilia Alston ANP [address] [place] [address] PCP - General Family Medicine 10/24/23 Lor Goldstein PharmD [address] [place] [address] Pharmacist Internal Medicine 02/15/25 documented as of this encounter
--- OUTSIDE RECORDS SUMMARY | 2025-08-03 08:41 | XMS_ITS | Encounter Summary ---
Author Organization [employer] Address 75 [facility] 7t [place] [address] Care Team Providers Care Chip Bin Conveyor Tender Name Role Phone Cesilia Alston FAISAL Primary Care Provider [phone] Lor Goldstein PharmD Unavailable [phone] Encounter Details Date Type Department Care Team (Late st Contact Info) Description 02/13/2025 Telephone [facility] MEDICINE [address] [place], [place] [phone] Lor Goldstein, PharmD [address] [place] [address] Social History Tobacco Use Types Packs/Day Years [...] Telephone Encounter - Lor Goldstein PharmD - 02/13/2025 4:45 PM EDT Patient is requesting information on food stamps or other services related available. Thank you! documented in this encounter Plan of Treatment Upcoming Encounters Date Type Department Care Team (Late st Contact Info) Description 08/24/2025 3:30 PM EDT Medication Management [facility] MEDICINE [address] [place] [address] Lor Goldstein PharmD [address] [place] [address] documented as of this encounter Goals Goal Patient Goal Type Associated Problems Recent Progress Patient-Stated? Author Take your medication every day Lifestyle No Shannan Rojas, Chandu documented as of this encounter Visit Diagnoses Not on filedocumented in this encounter Additional Health Concerns Assessment Noted Time PHQ-9 Depression Total Score: 0 10/21/20 24 10:30 AM EST documented as of this encounter Care Teams Chip Bin Conveyor Tender Relationship Specialty Start Date End Date Cesilia Alston ANP [address] [place] [address] PCP - General Family Medicine 10/24/23 Lor Goldstein PharmD [address] [place] [address] Pharmacist Internal Medicine 02/15/25 documented as of this encounter
--- OUTSIDE RECORDS SUMMARY | 2025-08-03 08:41 | XMS_ITS | Encounter Summary ---
Author Organization [employer] Address 75 [facility] 7t [place] [address] Care Team Providers Care Ruby Developer Name Role Phone Cesilia Alston Primary Care Provider [phone] Lor Goldstein PharmD Unavailable [phone] Reason for Visit * Reason Comments Med Refill Encounter Details Date Type Department Care Team ([facility] st Contact Info) Description 01/12/2025 Refill [facility] MEDICINE [address] [place], [place] [phone] Cesilia Alston ANP 230 [place] [address] Cigarette nicotine dependence without complication Social History [...] Description 08/24/2025 3:30 PM EDT Medication Management [facility] MEDICINE [address] [place] [address] Lor Goldstein PharmD [address] [place] [address] documented as of this encounter Goals Goal [...] documented as of this encounter Care Teams Ruby Developer Relationship Specialty Start Date End Date Cesilia Alston ANP [address] [place] [address] PCP - General Family Medicine 10/24/23 Lor Goldstein PharmD [address] [place] [address] Pharmacist Internal Medicine 02/15/25 documented as of this encounter
--- OUTSIDE RECORDS SUMMARY | 2025-08-03 08:41 | XMS_ITS | Encounter Summary ---
Author Organization [facility] [facility] Address [address] [place] [address] [address], [place] [address] Care Team Providers Care Avp Name Role Phone Philomena Pereira Primary Care Provider Ritika Paulino MD Primary Care Pro vider Cesilia Alston Primary Care Provider [phone] Lor Goldstein PharmD Unavailable Encounter Details Date Type Department Care Team (Late st Contact Info) Description 01/08/2023 Abstract [facility] MEDICINE [address] [place] [address] Philomena Pereira FNP Social History Tobacco Use Types Packs/Day Years [...] Description 08/24/2025 3:30 PM EDT Medication Management [facility] MEDICINE 230 [place] [address] Lor Goldstein, PharmD [address] [place] [address] documented as of this encounter Visit Diagnoses Not on filedocumented in this encounter Care Teams Avp Relationship Specialty Start Date End Date Philomena Pereira FNP PCP - General Family Medicine 10/16/22 05/31/23 Ritika Marsh MD [address] [place] [address] PCP - General Internal Medicine 06/01/23 10/23/23 Cesilia Alston ANP [address] [place] [phone] PCP - General Family Medicine 10/24/23 Lor Goldstein PharmD [address] [place] [address] [phone] Pharmacist Internal Medicine 02/15/25 documented as of this encounter
--- OUTSIDE RECORDS SUMMARY | 2025-08-03 08:41 | XMS_ITS | Encounter Summary ---
Author Organization [employer] [facility] Address [address] [place] [address] 7[address] [place] [address] Care Team Providers Care Pre K Teacher Name Role Phone Philomena Pereira Primary Care Provider Ritika Paulino MD Primary Care Pro vider Cesilia Alston Primary Care Provider [phone] Lor Goldstein PharmD Unavailable Encounter Details Date Type Department Care Team (Late st Contact Info) Description 12/04/2022 Orders Only [facility] MED & PEDS [address] [place] [address] Samantha Cast LPN Social History Tobacco Use [...] Description 08/24/2025 3:30 PM EDT Medication Management [facility] MEDICINE [address] [place] [address] Lor Goldstein, PharmD [address] [place] [address] documented as of this encounter Visit Diagnoses Not on filedocumented in this encounter Care Teams Pre K Teacher Relationship Specialty Start Date End Date Philomena Pereira FNP PCP - General Family Medicine 10/16/22 05/31/23 Ritika Marsh MD [address] [place] [address] PCP - General Internal Medicine 06/01/23 10/23/23 Cesilia Alston ANP [address] [place] [address] [phone] PCP - General Family Medicine 10/24/23 Lor Goldstein, Chandu [address] [place] [address] [phone] Pharmacist Internal Medicine 02/15/25 documented as of this encounter
--- OUTSIDE RECORDS SUMMARY | 2025-08-03 08:41 | XMS_ITS | Clinical Summary ---
Author Organization [facility] Address [address] [place] [address] Phone Care Team Providers Care Balance Truing Inspector Name Role Phone Cesilia Alston NP Primary Care Provider [phone] Allergies No known active allergies Medications oxyCODONE [...] EDT - 05/20/2025 1:12 AM EDT Emergency [facility] Emergency [address] [place] [address] Discharge Disposition: Home or Self Care from Last 3 Months Medical History Medical History Date Comments Diabetes mellitus ([facility] V24, [facility] V28) Asthma Neuropathy Social History Tobacco Use [...] Zoster Vaccines (2 of 2) 02/18/2024 12/24/2023 Diabetes: Annual Urine Albumin-Creatinine Ratio (uACR) 10/03/2024 Depression Screening 11/26/2024 COVID-19 Vaccine (3 - 2024-2 6 season) 2025 04/28/2021, 03/31/2021 Influenza Vaccine (#1) 2025 10/25/2018 Diabetes: Blood [...] Signed Date: 05/19/2025 16:36 ET Workstation ID: [id number] Transcribed By: Self Edit Transcribed Date: 05/19/2025 [...] Signed Date: 05/19/2025 16:36 ET Workstation ID: [id number] Transcribed By: Self Edit Transcribed Date: 05/19/2025 [...] [facility] Comment:Calculation based on the Chronic [...] 1:05 PM [facility] Alkaline Phosphatase 151(H) 42 - 121 unit/L LAB CHEMISTRY METHOD 01/10/2025 1:05 PM [facility] Total Protein 7.1 6.0 - 8.0 g/dL LAB CHEMISTRY METHOD 01/10/2025 1:05 PM [facility] Albumin 3.9 3.2 - 5.0 g/dL LAB CHEMISTRY METHOD 01/10/2025 1:05 PM [facility] Total Bilirubin 0.7 0.0 - 1.4 mg/dL LAB CHEMISTRY METHOD 01/10/2025 1:05 PM [facility] Blood Venous blood specimen / Unknown Venipuncture / Unknown 01/10/2025 12:12 PM EST 01/10/2025 12:16 PM EST us [facility] BLOOD ORDERABLES Final R esult [facility] [address] [place] [address], [place] [phone] from Last 3 Months or Most Recently Relevant to Health Maintenance Insurance MEDICARE Member Subscriber Plan / Payer (Ef fective 2018-Present) Name:KLEBER ROSALESUEL Relation to Subscriber:Self Name:Dick Rosales Sr Payer ID:[id number] Group ID:[id number] Type:Not on file Address: [facility] [address] [id number] Care Teams Balance Truing Inspector Relationship Specialty Start Date End Date Cesilia Alston NP [address] [place] [phone] PCP - General 10/03/24
--- OUTSIDE RECORDS SUMMARY | 2025-08-03 08:41 | XMS_ITS | Encounter Summary ---
Author Organization [employer] Address [address] [facility] [address] [address] Care Team Providers Care Clinical Data Associate Name Role Phone Ritika Marsh MD Primary Care Pro vider Cesilia Alston Primary Care Provider [phone] Lor Goldstein PharmD Unavailable Reason for Visit * Reason Onset Date Comments Medication Question 10/23/2023 Encounter Details Date Type Department Care Team ([facility] st Contact Info) Description 10/23/2023 Telephone [facility] MEDICINE [address] [place] [address] Ritika Marsh MD [address] [place] [address] Medication Question Social History Tobacco Use Types Packs/Day Years Used Date Smoking Tobacco: Never Assessed Housing Stability Answer Date Recorded What is your housing situation today? I do not have housing (Staying with others, in a hotel, in a fci, living outside on the street, on a [...] them cut down from daily to 3x/week. [facility] wants to let PCP know this. Also, pt told him that he was recently at the EDfor BG >400. He states this is because pt refuses insulin most days. Also concerned about polypharmacy. States pt uses around 5 pharmacies that he has counted. 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 I notice trulicity and lantus both sent 10/20 [facility] He states spoke to pt regarding this and is requesting we change pt's main pharmacy to [facility] [place] as it is 5 minutes from pt's home. Will update pt's chart to reflect this. He is also wondering if lantus can be sent as a pen. States pt's eye sight isn't good and he is concerned with him drawing up his own insulin on days he isn't there. Lastly, he is requesting a med list be faxed to [phone]. Will fax. * Telephone Encounter - Royl Hay - 10/23/2023 11:49 AM EST Tc from [facility] requesting a call back from nurse in regards to insulin. Please contact at [phone] documented in this encounter Plan of Treatment Upcoming Encounters Date Type Department Care Team (Late st Contact Info) Description 08/24/2025 3:30 PM EDT Medication Management [facility] MEDICINE [address] [place] [address] Lor Goldstein PharmD [address] [place] [phone] documented as of this encounter Visit Diagnoses Not on filedocumented in this encounter Care Teams Clinical Data Associate Relationship Specialty Start Date End Date Ritika Marsh MD [address] [place] [address] PCP - General Internal Medicine 06/01/23 10/23/23 Cesilia Alston ANP [address] [place] [address] PCP - General Family Medicine 10/24/23 Lor Goldstein PharmD [address] [place] [address] [phone] Pharmacist Internal Medicine 02/15/25 documented as of this encounter
--- OUTSIDE RECORDS SUMMARY | 2025-08-03 08:41 | XMS_ITS | Encounter Summary ---
Author Organization [employer] Address 75 [facility] 7t [place] [address] Care Team Providers Care Strategic Marketing Associate Name Role Phone Cesilia Alston FAISAL Primary Care Provider [phone] Lor Goldstein PharmD Unavailable [phone] Reason for Visit * Reason Onset Date Comments Unable to run CCA 10/06/2024 Encounter Details Date Type Department Care Team ([facility] st Contact Info) Description 10/06/2024 Telephone [facility] DENTAL [address] [place] [address] Ryan Zurita DDS [address] [place] [address] Unable to run CCA Social History Tobacco [...] or post due to website being down. [facility] desk is aware DR documented in this encounter Plan of Treatment Upcoming Encounters Date Type Department Care Team (Late st Contact Info) Description 08/24/2025 3:30 PM EDT Medication Management [facility] MEDICINE [address] [place] [address] Lor Goldstein PharmD [address] [place] [address] documented as of this encounter Goals Goal Patient Goal Type Associated Problems Recent Progress Patient-Stated? Author Take your medication every day Lifestyle No Shannan Rojas PharmD documented as of this encounter Visit Diagnoses Not on filedocumented in this encounter Care Teams Strategic Marketing Associate Relationship Specialty Start Date End Date Cesilia Alston ANP [address] [place] [address] PCP - General Family Medicine 10/24/23 Lor Goldstein PharmD [address] [place] [address] Pharmacist Internal Medicine 02/15/25 documented as of this encounter
--- OUTSIDE RECORDS SUMMARY | 2025-08-03 08:41 | XMS_ITS | Encounter Summary ---
Author Organization [employer] Address 75 [facility] 7 [place] [address] Care Team Providers Care Pattern Perforating Machine Operator Name Role Phone Cesilia Alston Primary Care Provider [phone] Lor Goldstein PharmD Unavailable [phone] Reason for Visit * Reason Comments Med Refill Encounter Details Date Type Department Care Team ([facility] Contact Info) Description 06/05/2025 Refill [facility] CH[facility] MED & PEDS [address] [place], [place] [phone] Ryann Watson MD 505 [place] [address] Social History Tobacco Use Types Packs/Day Years [...] others, in a hotel, in a senior living, living outside on the street, on a [...] 08/24/2025 3:30 PM EDT Medication Management [facility] MEDICINE [address] [place] [address] Lor Goldstein PharmD [address] [place] [address] documented as of this encounter Goals Goal Patient Goal Type Associated Problems Recent Progress Patient-Stated? Author Take your medication every day Lifestyle No Shannan Rojas PharmD documented as of this encounter Visit Diagnoses Not on filedocumented in this encounter Additional Health Concerns Assessment Noted Time PHQ-9 Depression Total Score: 0 10/21/20 24 10:30 AM EST documented as of this encounter Care Teams Pattern Perforating Machine Operator Relationship Specialty Start Date End Date Cesilia Alston ANP [address] [place] [address] PCP - General Family Medicine 10/24/23 Lor Goldstein PharmD [address] [place] [address] [phone] Pharmacist Internal Medicine 02/15/25 documented as of this encounter
--- OUTSIDE RECORDS SUMMARY | 2025-08-03 08:41 | XMS_ITS | Encounter Summary ---
Author Organization [employer] Address 75 [facility] 7[address] [place] [address] Care Team Providers Care Senior Technical Writer Name Role Phone Cesilia Alston Primary Care Provider [phone] Lor Goldstein PharmD Unavailable [phone] Reason for Visit * Reason Comments Med Refill Encounter Details Date Type Department Care Team ([facility] st Contact Info) Description 12/28/2023 Refill [facility] MEDICINE 230 [place], [place] [phone] Cesilia Alston ANP [address] [place] [address] Type 2 diabetes mellitus with other specified complication, with long-term current use of insulin ([facility]) Social History Tobacco Use Types Packs/Day Years Used Date Smoking Tobacco: Never Assessed Housing Stability Answer Date Recorded What is your housing situation today? I do not have housing (Staying with others, in a hotel, in a group home, living outside on the street, on a [...] Medication Management [facility] MEDICINE [address] [place] [address] Lor Goldstein PharmD [address] [place] [address] documented as of this encounter Goals Goal Patient Goal Type Associated Problems Recent Progress Patient-Stated? Author Take your medication every day Lifestyle No Shannan Rojas PharmD documented as of this encounter Visit Diagnoses Diagnosis Type 2 diabetes mellitus with other specified complication, with long-term current use of insulin ([facility]) documented in this encounter Care Teams Senior Technical Writer Relationship Specialty Start Date End Date Cesilia Alston ANP [address] [place] [address] PCP - General Family Medicine 10/24/23 Lor Goldstein PharmD [address] [place] [phone] Pharmacist Internal Medicine 02/15/25 documented as of this encounter
--- OUTSIDE RECORDS SUMMARY | 2025-08-03 08:41 | XMS_ITS | Encounter Summary ---
Author Organization [employer] Address [address] [facility] [address], [place] [address] Care Team Providers Care Recycle Worker Name Role Phone Cesilia Alston FAISAL Primary Care Provider [phone] Lor Goldstein PharmD Unavailable [phone] Reason for Visit * Reason Comments Med Refill Encounter Details Date Type Department Care Team ([facility] st Contact Info) Description 06/05/2025 Refill [facility] [address] [place] [address] Ritika Marsh MD [address] [place] [address] Type 2 diabetes mellitus with hyperlipidemia (CMS/HCC) ([facility]/HCC) Social History Tobacco Use Types Packs/Day Years [...] with others, in a hotel, in a snf, living outside on the street, on a [...] Description 08/24/2025 3:30 PM EDT Medication Management [facility] [address] [place] [address] Lor Goldstein PharmD [address] [place] [address] documented as of this encounter Goals Goal Patient Goal Type Associated Problems Recent Progress Patient-Stated? Author Take your medication every day Lifestyle No Shannan Rojas, PharmD documented as of this encounter Visit Diagnoses Diagnosis Type 2 diabetes mellitus with hyperlipidemia (CMS/HCC) (CMS/HCC) documented in this encounter Additional Health Concerns Assessment Noted Time PHQ-9 Depression Total Score: 0 10/21/20 24 10:30 AM EST documented as of this encounter Care Teams Recycle Worker Relationship Specialty Start Date End Date Cesilia Alston ANP [address] [place] [address] PCP - General Family Medicine 10/24/23 Lor Goldstein, Chandu [address] [place] [address] Pharmacist Internal Medicine 02/15/25 documented as of this encounter
--- OUTSIDE RECORDS SUMMARY | 2025-08-03 08:42 | XMS_ITS | Clinical Summary ---
Author Organization [employer] Address [address] [facility] [address] [place] [address] Care Team Providers Care Cafeteria Operator Name Role Phone Naila Kerr FAISAL Primary Care Provider [phone] Lor Goldstein PharmD Unavailable [phone] Allergies No known active allergies Medications * [...] BY MOUTH EVERYDAY AT BEDTIME 023 Active triamcinolone (Kenalog) 0.1 % cream Apply topically if needed in the morning and at bedtime (pain and swelling). 30 g 2 024 Active atorvastatin (Lipitor) 80 MG tabletIndication s:Type 2 diabetes mellitus with hyperlipidemia (CMS/HCC) (CMS/HCC) Take 1 tablet (80 mg) by mouth at bedtime. 30 tablet 11 024 Active clotrimazole (Antifungal, Clotrimazole,) 1 % creamIndications :Tinea pedis of both feet Apply topically 2 times daily. To feet 60 g Active Trelegy Ellipta 100-62.5-25 MCG/ACT aerosol powderIndication s:Asthma with acute exacerbation, unspecified asthma severity, unspecified whether persistent Inhale 1 Inhalation Once daily. 28 each 2 025 Active ARIPiprazole (Abilify) 20 MG tablet Active busPIRone (Buspar) 15 MG tablet Active traZODone (Desyrel) 50 MG tablet Active pen needle 31G x 5 mm miscIndications: Type 2 diabetes mellitus with hyperlipidemia (CMS/HCC) ([facility]) Use as instructed with insulin administration twice daily 100 each 3 025 2025 Active insulin glargine (Lantus SoloStar) 100 UNIT/ML penIndications:T ype 2 diabetes mellitus with hyperlipidemia (CMS/HCC) ([facility]) Inject subcutaneously 36 units once daily 15 mL 025 Active naproxen sodium (Aleve) 220 MG tabletIndication s:Acute right hip pain Take 1 tablet (220 mg) by mouth every 12 (twelve) hours if needed for mild pain. 20 tablet 1 025 2025 Active insulin lispro (HumaLOG) 100 UNIT/ML injectionIndicat ions:Type 2 diabetes mellitus with hyperlipidemia (CMS/HCC) ([facility]) INJECT 4 UNITS SUBCUTANEOUSLY ONCE DAILY BEFORE DINNER *DO NOT USE IF SKIPPING MEAL* 15 mL 025 Active gabapentin (Neurontin) 300 MG capsuleIndicatio ns:Diabetic polyneuropathy associated with type 2 diabetes mellitus ([facility]/HCC) Take 1 capsule at bedtime with 800mg tablet 30 capsule Active TRUEplus Lancets 33G miscIndications: Type 2 diabetes mellitus with hyperlipidemia (CMS/HCC) ([facility]) Use TID or more as needed to check BG 100 each 025 Active Continuous Glucose [place] (FreeStyle Corry 3 [place]) deviceIndication s:Type 2 diabetes mellitus with hyperlipidemia (CMS/HCC) ([facility]) 1 each Once per day. Use as directed for CGM 1 each 025 Active Continuous Glucose Sensor (FreeStyle Corry 3 Plus Sensor) miscIndications: Type 2 diabetes mellitus with hyperlipidemia (CMS/HCC) ([facility]) 1 each every 15 days. Apply 1 every 15 days as directed for CGM 2 each 025 Active glucose blood (FreeStyle Precision Jim Test) test stripIndications :Type 2 diabetes mellitus with hyperlipidemia (CMS/HCC) ([facility]) Test blood sugar q 8 hours 100 each 12 025 Active Dulaglutide (Trulicity) 0.75 MG/0.5ML solution auto-injectorInd ications:Type 2 diabetes mellitus with hyperlipidemia (CMS/HCC) ([facility]) Inject 0.75 mg under the skin every 7 (seven) days. 2 mL 1 025 Active aspirin 81 MG EC tabletIndication s:Diabetic polyneuropathy associated with type 2 diabetes mellitus (CMS/HCC),Type 2 diabetes mellitus with hyperlipidemia (CMS/HCC) ([facility]) Take 1 tablet (81 mg) by mouth Once per day. 90 tablet 3 025 2025 Active gabapentin (Neurontin) 300 MG capsuleIndicatio ns:Diabetic polyneuropathy associated with type 2 diabetes mellitus ([facility]/HCC) Take 1 capsule at bedtime with 800mg tablet 30 capsule 024 2024 Discontinued(R eorder (will not trigger notification to Pharmacy)) Continuous Glucose [place] (FreeStyle Corry 2 [place]) deviceIndication s:Type 2 diabetes mellitus with hyperlipidemia (CMS/HCC) ([facility]) Use as directed to monitor glucose ever 8 hours. 1 each 024 2024 Discontinued(O ther) glucose blood (FreeStyle Precision Jim Test) test strip Test blood sugar q 8 hours 100 each 024 2024 Discontinued(R eorder (will not trigger notification to Pharmacy)) TRUEplus Lancets 33G miscIndications: Type 2 diabetes mellitus with hyperlipidemia (CMS/HCC) ([facility]) Use TID or more as needed to check BG 100 each 024 2024 Discontinued(R eorder (will not trigger notification to Pharmacy)) Dulaglutide (Trulicity) 4.5 MG/0.5ML solution auto-injectorInd ications:Type 2 diabetes mellitus with hyperlipidemia (CMS/HCC) ([facility]) Inject 4.5 mg under the skin every 7 (seven) days. 2 mL 025 2024 Discontinued(N on-compliance) Continuous Glucose Sensor (FreeStyle Corry 2 Sensor) miscIndications: Type 2 diabetes mellitus with hyperlipidemia (CMS/HCC) ([facility]) USE TO MONITOR GLUCOSE EVERY [address]. RE[address] SENSOR EVERY 14 DAYS. 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 Foot pain, bilateral 05/23/2024 Non compliance w [...] Encounters Date Type Department Care Team Description 07/29/[address] [address] Lor Goldstein, PharmD Prior Authorization 07/24/2025 Travel 07/21/2025 9:30 AM EDT Office Visit [facility] [address] [place] [address] Naila Kerr ANP Diabetic polyneuropathy associated with type 2 diabetes mellitus (CMS/HCC) (Primary Dx); Type 2 diabetes mellitus with hyperlipidemia (CMS/HCC) ([facility]/HCC); Non compliance w medication regimen 07/21/2025 Telephone [facility] [address] [place] [address] Berry Choi MD 07/21/2025 Travel 07/01/2025 Refill [facility] [address] [place] [address] Lor Goldstein PharmD Type 2 diabetes mellitus with hyperlipidemia (CMS/HCC) ([facility]/HCC) 06/24/2025 2:00 PM EDT Office Visit [facility] [address] [place] [address] Tamela Lopez MD Acute right hip pain (Primary Dx) 06/24/2025 Travel 06/05/2025 Refill [facility] [address] [place] [address] Ritika Marsh MD Type 2 diabetes mellitus with hyperlipidemia (CMS/HCC) ([facility]/HCC) 06/05/2025 Refill [facility] [address] [place], [place] [address] Ryann Watson MD 05/20/2025 Orders Only [facility] External Provider, [facility] 05/05/2025 Telephone [facility] [address] [place] [address] Naila Kerr ANP from Last 3 Months Immunizations Immunization Administration Dates Next Due Influenza, IIV3, injectable 09/16/2010 Influenza, seasonal, injectable, preservative fr ee 10/25/2018 Moderna Covid-19 Vaccine 12+ 04/28/2021,03/31/20 21 Pneumococcal Conjugate PCV 20 12/06/2023 Pneumococcal Polysaccharide PPSV23 01/08/2013 Tdap 12/24/2023 Zoster, Recombinant 12/24/2023 Social History Tobacco Use Types Packs/Day Years Used Date Smoking Tobacco: Every Day Cigarettes 0.3 0.6 Started: 12/14/2024; Last attempted to quit: 2020 Passive Smoke Exposure: Current Smokeless Tobacco: Never Tobacco Cessation:Ready to Q uit: Not Asked; Counseling Given: Not Answered Depression Answer Date Recorded Patient Health Questionnaire-9 [...] Sign Reading Time Taken Comments Blood Pressure 128/64 07/24/2025 3:04 PM EDT Pulse 91 07/24/2025 3:04 PM EDT Temperature 36.2 C (97.2 F) 07/21/2025 9:41 AM EDT Respiratory Rate 14 07/21/2025 9:41 AM EDT Oxygen Saturation 98% 07/21/2025 9:41 AM EDT Inhaled Oxygen Concentration - - Weight 103 kg (226 lb 6.4 oz) 07/21/2025 9:41 AM EDT Height 182.9 cm (6') 07/18/2024 8:54 AM EDT Body Mass Index 30.71 07/18/2024 8:54 AM EDT Plan of Treatment Upcoming Encounters Date Type Department Care Team (Late st Contact Info) Description 08/24/2025 3:30 PM EDT Medication Management [facility] [address] [place], [place] [id number] Lor Goldstein, PharmD [address] [place] [address] Health Maintenance Due Date Last Done Comments CT Colonography 1961 Colonoscopy 1961 Colorectal Cancer Screening 1961 Dental X-Ray: Bitewings 1961 FIT DNA/Cologuard 1961 FIT 1961 FOBT 1961 Sigmoidoscopy 1961 Eye Exam 1971 Hepatitis C Screening 1979 Dental Prophylaxis 09/25/2009 03/25/2009 Dental Oral Exam 11/04/2009 05/04/2009 Diabetes: Urine Protein Screening 01/25/2021 01/26/2020 RSV Patients and Patients Aged 60 years or older (1 - Risk 60-74 years 1-dose series) 2021 Zoster Vaccines (2 of 2) 02/18/2024 12/24/2023 Lipid Panel 01/15/2025 01/15/2024 COVID-19 Vaccine (3 - season) 2025 04/28/2021, 03/31/2021 Influenza Vaccine (#1) 2025 10/25/2018, 2009 Depression Screening 10/21/2025 10/21/2024, 10/21/20 24 Diabetes: Hemoglobin A1C 10/21/2025 025, 01/27/2025, 10/21/2024, Additional history exists SDOH Screening 01/20/2026 01/20/2025 Alcohol/Substance Use Screening 01/27/2026 01/27/2025 Diabetes: Foot Exam 07/21/2026 07/21/2025, Disability Screening 07/21/2026 07/21/2025 Tobacco Screening 07/21/2026 07/21/2025 Dental X-Ray: Full Mouth 10/07/2027 10/06/2024 DTaP/Tdap/Td [...] Diagnosis Comments POCT GLYCATED HEMOGLOBIN, TOTAL Routine 07/21/2025 9:48 AM EDT Type 2 diabetes mellitus with hyperlipidemia (CMS/HCC) ([facility]) POCT GLUCOSE Routine 07/21/2025 9:47 AM EDT Type 2 diabetes mellitus with hyperlipidemia (CMS/HCC) (CMS/HCC) XR PELVIS 1-2 VIEWS Routine 06/24/2025 1 :58 PM EDT Acute right hip pain XR FOREARM 2 VIEWS RIGHT Routine 05/20/2025 7:22 AM EDT XR WRIST 1-2 VIEWS RIGHT Routine 05/20/2025 7:19 AM EDT PANORAMIC RADIOGRAPHIC IMAGE Routine 10/06/2024 1:00 PM [...] Maintenance Results * (ABNORMAL) POCT HGB A1C (07/21/2025 9:48 AM EDT) Hemoglobin A1C 8.1(A) 4.0 - 5.7 % QC Media Lot # [id number] Lot# Expiration Date [id number] Blood 07/21/2025 9:48 AM EDT us Naila MALONE POINT OF CARE TEST ENTER/EDIT OR DERABLES Final Result * POCT Glucose (07/21/2025 9:47 AM EDT) Glucose Blood, POC 197 60 - 200 mg/dL QC Media Lot # [id number] Lot# Expiration Date [id number] Blood Capillary blood specimen / Unknown 07/21/2025 9:47 AM EDT us Naila MALONE POINT OF CARE TEST ENTER/EDIT OR DERABLES Final Result * XR Pelvis 1-2 Views (06/24/2025 1:58 PM EDT) Anatomical Region Laterality Modality Body, Pelvis Radiographic Daina ging 06/24/2025 1:58 PM EDT Narrative 06/24/2025 2:53 PM EDT [address] [address] XRay Report Signed Patient: Dick Rosales MR#: [id number] 3 : 1960 Acct:[id number] Age/Sex: 64 / M ADM Date: 06/24/25 Loc: HO.HHCX Attending Dr: Tamela Lopez MD Ordering Physician: Tamela Lopez MD Date of Service: 06/24/25 Procedure(s): XR pelvis 1-2V Accession Number(s): [id number] cc: Tamela Lopez MD EXAMINATION: XR PELVIS CLINICAL INFORMATION: Pain in right COMPARISON: September 15, 2019. TECHNIQUE: AP view of the pelvis. FINDINGS: Bony pelvis is intact. No acute cortical disruption or malalignment in either hip. Sclerosis along the articular surface of the acetabulum, the left side XR/XR pelvis 1-2V IMPRESSION: No acute fracture. Osteoarthrosis both hips. Electronically signed by: Ranjith Rai MD 06/24/2025 02:50 PM EDT Dictated By: Ranjith Meade MD Signed By: <Electronically signed by Ranjith Brown MD in OV> 06/24/25 1450 DD/ 1358 TD/TT: 06/24/25 1446 Over Short And Damage Clerk: Procedure Note Donotuseinterpreter, Image - 06/24/[address] [address] XRay Report Signed Patient: Dick Rosales AMR#: [id number] 3 : 1960cct:[id number] Age/Sex: 64 / MADM Date: 06/24/25 Loc: HO.HHCX Attending Dr: Tamela Lopez MD Ordering Physician: Tamela Lopez MD Date of Service: 06/24/25 Procedure(s): XR pelvis 1-2V Accession Number(s): [id number] cc: Tamela Lopez MD EXAMINATION: XR PELVIS CLINICAL INFORMATION: Pain in right COMPARISON: September 15, 2019. TECHNIQUE: AP view of the pelvis. FINDINGS: Bony pelvis is intact. No acute cortical disruption or malalignment in either hip. Sclerosis along the articular surface of the acetabulum, the left side XR/XR pelvis 1-2V IMPRESSION: No acute fracture. Osteoarthrosis both hips. Electronically signed by: Ranjith Rai MD 06/24/2025 02:50 PM EDT RP Dictated By: Ranjith Meade MD Signed By: <Electronically signed by Ranjith Brown MDin OV> 06/24/25 1450 DD/ 1358 TD/TT: 06/24/25 1446 Over Short And Damage Clerk: Tamela Lopez MD IMG XR PROCEDURES Final Resul t * XR Forearm 2 Views Right (05/20/2025 7:22 AM EDT) Anatomical Region Laterality Modality Upper Extremities, Forearm Right Radio graphic Imaging 05/20/2025 7:22 AM EDT Narrative 05/20/2025 8:35 AM EDT [place] [address] XRay Report Signed Patient: Dick Rosales MR#: [id number] 3 : 1960 Acct:[id number] Age/Sex: 64 / M ADM Date: 05/20/25 Loc: HO.ED Attending Dr: Ordering Physician: Generic ED Physician Date of Service: 05/20/25 Procedure(s): XR forearm RT 2V Accession Number(s): [id number] cc: Generic ED Physician; NAILA KERR NP EXAMINATION: XR WRIST 1-2 VIEWS RIGHT, XR FOREARM 2 VIEWS RIGHT HISTORY: trauma, pain and swelling COMPARISON: There are no prior studies available for comparison. FINDINGS: AP and lateral views of the right forearm and 4 views of the right wrist, including a scaphoid view are submitted. Osseous mineralization is normal. There is no fracture or dislocation. There is mild degenerative change involving the 1st carpometacarpal joint with joint space narrowing. The visualized portion of the elbow joint is maintained. There are vascular calcifications. XR/XR forearm RT 2V IMPRESSION: No evidence of fracture of the right wrist or forearm. Electronically signed by: Cali Benitez MD 05/20/2025 08:33 AM EDT RP Dictated By: Cali Benitez MD Signed By: <Electronically signed by Cali Benitez MD in OV> 05/20/25832 DD/ 1 TD/TT: 05/20/25826 Over Short And Damage Clerk: Procedure Note Donotuseinterpreter, Image - 05/20/2025 [place] [address] XRay Report Signed Patient: Dick Rosales AMR#: [id number] 3 : 2Acct:[id number] Age/Sex: 64 / MADM Date: 05/20/25 Loc: .ED Attending Dr: Ordering Physician: Generic ED Physician Date of Service: 05/20/25 Procedure(s): XR forearm RT 2V Accession Number(s): [id number] cc: Generic ED Physician; NAILA KERR NP EXAMINATION: XR WRIST 1-2 VIEWS RIGHT, XR FOREARM 2 VIEWS RIGHT HISTORY: trauma, pain and swelling COMPARISON: There are no prior studies available for comparison. FINDINGS: AP and lateral views of the right forearm and 4 views of the right wrist, including a scaphoid view are submitted. Osseous mineralization is normal. There is no fracture or dislocation. There is mild degenerative change involving the 1st carpometacarpal joint with joint space narrowing. The visualized portion of the elbow joint is maintained. There are vascular calcifications. XR/XR forearm RT 2V IMPRESSION: No evidence of fracture of the right wrist or forearm. Electronically signed by: Cali Benitez MD 05/20/2025 08:33 AM EDT RP Dictated By: Cali eBnitez MD Signed By: <Electronically signed by Cali Benitez MD in OV> 05/20/25832 DD/ 07 TD/TT: 05/20/25826 Over Short And Damage Clerk: [facility] External Provider IMG XR PROCEDURES Final Result * XR Wrist 1-2 Views Right (05/20/2025 7:19 AM EDT) Anatomical Region Laterality Modality Upper Extremities, Wrist Right Radiogr aphic Imaging 05/20/2025 7:19 AM EDT Narrative 05/20/2025 8:35 AM EDT [address] [address] XRay Report Signed Patient: Dick Rosales MR#: [id number] 3 : 1960 Acct:[id number] Age/Sex: 64 / M ADM Date: 05/20/25 Loc: .ED Attending Dr: Ordering Physician: Generic ED Physician Date of Service: 05/20/25 Procedure(s): XR wrist RT 2V Accession Number(s): [id number] cc: Generic ED Physician; NAILA KERR NP EXAMINATION: XR WRIST 1-2 VIEWS RIGHT, XR FOREARM 2 VIEWS RIGHT HISTORY: trauma, pain and swelling COMPARISON: There are no prior studies available for comparison. FINDINGS: AP and lateral views of the right forearm and 4 views of the right wrist, including a scaphoid view are submitted. Osseous mineralization is normal. There is no fracture or dislocation. There is mild degenerative change involving the 1st carpometacarpal joint with joint space narrowing. The visualized portion of the elbow joint is maintained. There are vascular calcifications. XR/XR wrist RT 2V IMPRESSION: No evidence of fracture of the right wrist or forearm. Electronically signed by: Cali Benitez MD 05/20/2025 08:33 AM EDT Dictated By: Cali Benitez MD Signed By: <Electronically signed by Cali Benitez MD in OV> 05/20/25 0833 DD/ 07 TD/TT: 05/20/25826 Over Short And Damage Clerk: Procedure Note Donotuseinterpreter, Image - 05/20/[address] [address] XRay Report Signed Patient: Dick Rosales AMR#: [id number] 3 : 1960cct:[id number] Age/Sex: 64 / MADM Date: 05/20/25 Loc: HO.ED Attending Dr: Ordering Physician: Generic ED Physician Date of Service: 05/20/25 Procedure(s): XR wrist RT 2V Accession Number(s): [id number] cc: Generic ED Physician; NAILA KERR NP EXAMINATION: XR WRIST 1-2 VIEWS RIGHT, XR FOREARM 2 VIEWS RIGHT HISTORY: trauma, pain and swelling COMPARISON: There are no prior studies available for comparison. FINDINGS: AP and lateral views of the right forearm and 4 views of the right wrist, including a scaphoid view are submitted. Osseous mineralization is normal. There is no fracture or dislocation. There is mild degenerative change involving the 1st carpometacarpal joint with joint space narrowing. The visualized portion of the elbow joint is maintained. There are vascular calcifications. XR/XR wrist RT 2V IMPRESSION: No evidence of fracture of the right wrist or forearm. Electronically signed by: Cali Benitez MD 05/20/2025 08:33 AM EDT RP Dictated By: Cali Benitez MD Signed By: <Electronically signed by Cali Benitez MD in OV> 05/20/25 0833 DD/ 0719 TD/TT: 05/20/25 0827 Over Short And Damage Clerk: [facility] External Provider IMG XR PROCEDURES Final Result * (ABNORMAL) Lipid Panel, Standard (01/15/2024 12:27 PM EST) Triglycerides 212(H) <150 mg/dL [facility] Comment:Desirable Triglyceri de: less than 150 mg/dLBorderline High Triglyceride 150-199 mg/dLHigh Triglyceride: 200-499 mg/dLVery High Triglyceride: greater than or equal to 5OO mg/dL Cholesterol 332(H) <200 mg/dL [facility] Comment:Desirable Cholestero l: less than 200 mg/dLBorderline High Cholesterol: 200-239 mg/dLHigh Cholesterol: greater than 239 mg/dL LDL Cholesterol Calculated 241(H) <100 mg/dL [facility] Comment:Desirable LDL: less than 100 mg/dLNear Optimal/Above Optimal LDL: 110- 129 mg/dLBorderline High LDL: 130-159 mg/dLHigh LDL: 160-189 mg/dLVery High LDL: greater than or equal to 190 mg/dL HDL Cholesterol 49 >40 mg/dL [facility] Comment:Desirable HDL: great er than 40 mg/dL Note: This HDL assay may give artificially low results in patients with liver disease. 01/15/2024 12:2 7 PM EST 01/15/2024 1:09 PM EST us Naila Kerr [facility] BLOOD ORDERABLES Final Resul t Performing Organization Address City/[facility]/ZIP Co de Phone Number [facility] [address] [place] [address] [phone] * HIV AB/AG (01/26/2020 11:06 AM EST) Pathologist [facility] HIV AG/AB NONREACTIVE [facility] Comment: HIV-1 p24 Ag and/or HIV-1/HIV-2 Ab not detected. A test result that is nonreactive does not exclude the possibility of exposure to or infection with HIV-1 and/or HIV-2. Nonreactive results in this assay for individuals with prior exposure to HIV-1 and/or HIV-2 may be due to antigen and antibody levels that are below the limit of detection of this assay. The [employer] HIV Ag/Ab Combo assay result and supplemental assay results should be interpreted in conjunction with the patient's clinical presentation, history and other laboratory results. If the results are inconsistent with clinical evidence, additional testing is suggested to confirm the result. 01/26/2020 11:0 6 AM EST Cy Ruano MD HISTORICAL/NON ORDERABLE LAB S Final Result Performing Organization Address [facility]/ZIP Co de Phone Number [facility] [place] [address], * MICROALBUMIN, RANDOM (01/26/2020 11:05 AM EST) CREATININE, RANDOM URINE 97.32 MG/DL [facility] MICALB/CRE RATIO RANDOM URINE 6.1 ug/mg cr [facility] Comment: Albumin/Creatinine Ratio Reference Ranges: Normal: < 30 ug/mg creatinine Microalbuminuria: 30 - 300 ug/mg creatinine Clinical Albuminuria: > 300 ug/mg creatinine MICROALBUMIN, RANDOM URINE 6.0 MG/L [facility] 01/26/2020 11:0 5 AM EST us Cy Ruano MD HISTORICAL/NON ORDERABLE LAB S Final Result [facility] [address] [place] [address], from Last 3 Months or Most Recently Relevant to Health Maintenance Insurance [facility] < [address] [place] [address] Care Teams Cafeteria Operator Relationship Specialty Start Date End Date Naila Kerr ANP [address] [place] [address] PCP - General Family Medicine 10/24/23 Lor Goldstein PharmD [address] [place] [address] Pharmacist Internal Medicine 02/15/25
[2025-08-03 11:51] LABS: Alanine Aminotransferase 23 U/L (0-40); Albumin Level 4.3 g/dL (3.5-5.0); Alkaline Phosphatase 107 U/L (39-117); Anion Gap 12 (12-20); Aspartate Amino Transferase 17 U/L (5-37); Blood Urea Nitrogen 16 mg/dL (9-16); Calcium 9.3 mg/dL (8.4-10.2); Carbon Dioxide 24 mmol/L (22-29); Chloride 109 mmol/L (96-108); Cholesterol 251 mg/dL (<200); Estimated Glomerular Filt Rate > 60; HDL Cholesterol 48 mg/dL (>40); Potassium 4.0 mmol/L (3.3-5.1); Sodium 141 mmol/L (135-145); Total Protein 6.8 g/dL (6.5-8.0); Triglycerides 248 mg/dL (<150)
== END 2025-08-03 08:06 | disposition home or self-care (01) ==
LOC: HO.HHCL 08:05
PROVIDERS: PCP Nurse Practitioner Primary Care; Visit Provider Nurse Practitioner Primary Care
DX: E11.69 Type 2 diabetes mellitus with other specified complication (principal); E78.5 Hyperlipidemia, unspecified
CPT/HCPCS: 36415; 80053; 80061

== ENCOUNTER 2025-09-02 14:31 | Outpatient (REF) | payer OTHER, SELFPAY ==
--- NOTE | ~2025-09-02 | CT_ITS ---
EXAMINATION: CT LUNG SCREENING HISTORY: F17.210 - Nicotine dependence, cigarettes, uncomplicated TECHNIQUE: Low dose axial images were obtained from the sternal notch to upper abdomen without IV contrast per standard departmental protocol. Sagittal and coronal reformatted images were also obtained and reviewed. One or more of the following techniques was used for dose reduction: Automated exposure control, adjustment of the mA and/or kV according to patient size, use of iterative reconstruction technique. DLP: 86 mGy-cm COMPARISON: Comparison is made with the prior examination dated 04/17/2024. FINDINGS: Lung nodules: Again seen is a tiny cluster of nodules in the right upper lobe (series 4, image 38). Additional 1-2 mm nodules are noted in the right middle lobe (series 4, image 71) and in the left lower lobe (series 4, image 85). No new nodules are identified. Emphysema: none Coronary Calcification: severe Aortic Arch Calcification: mild Potentially Significant Incidentals : There is a 2.0 cm left thyroid nodule. Additional Chest Findings: There is no pleural or pericardial effusion. No mediastinal or axillary lymphadenopathy is identified. Visualized upper abdomen: The visualized portions of the liver, spleen, and adrenals have an unremarkable unenhanced appearance. CT/CT lung screening IMPRESSION: 1. No suspicious pulmonary nodules are identified. 2. 2.0 cm left thyroid nodule. Thyroid ultrasound should be considered. LUNG-RADS ASSESSMENT: Lung-RADS 2: Benign MANAGEMENT: Continue annual screening with LDCT in 12 months Category S: S Electronically signed by: Cali Benitez MD 09/02/2025 03:08 PM EDT
== END 2025-09-02 14:32 | disposition home or self-care (01) ==
LOC: HO.CT 14:31
PROVIDERS: PCP Nurse Practitioner Primary Care; Visit Provider Physician Assistant Medical
DX: Z12.2 Encounter for screening for malignant neoplasm of respiratory organs (principal); F17.210 Nicotine dependence, cigarettes, uncomplicated
CPT/HCPCS: 71271

== ENCOUNTER → 2025-09-02 14:38 | Outpatient (BNV) | payer OTHER, SELFPAY | PROVIDERS: PCP Nurse Practitioner Primary Care; Visit Provider Radiology Diagnostic Radiology | DX: F17.210 Nicotine dependence, cigarettes, uncomplicated (principal) | CPT/HCPCS: 71271 ==

== ENCOUNTER 2025-10-12 14:31 | Outpatient (REF) | payer OTHER, SELFPAY ==
--- NOTE | ~2025-10-12 | US_ITS ---
EXAMINATION: US THYROID CLINICAL INFORMATION: Incidental finding on CT lung screening dated September 02, 2025. COMPARISON: None available. TECHNIQUE: Linear transducer grayscale and color Doppler examination with attention to the region of the thyroid. FINDINGS: SIZE: Measurements of the thyroid lobes and nodules are given in sagittal, anteroposterior and transverse dimensions respectively. Right Thyroid Lobe: 5.0 x 1.6 x 2.3 cm, volume 9.7 mL. Parenchyma: The gland echotexture is normal. Thyroid vascularity is normal. Left Thyroid Lobe: 4.5 x 1.9 x 2.7 cm, volume 11.9 mL. Parenchyma: The gland echotexture is normal. Thyroid vascularity is normal. Isthmus: 0.4 cm in maximum AP dimension. Estimated total number of nodules greater than or equal to 1 cm: 1. 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 Location: Midportion left lobe. Size: 2.6 x 2.4 x 2.3 cm, volume 7.48 mL. Nodule characteristics: Composition: Mixed cystic and solid (1). Echogenicity: Undetermined (1) Shape: Not taller than wide (0). Margins: Smooth (0). Echogenic Foci: None (0). ACR TI-RADS total points: 2 ACR TI-RADS category: 2 2. Location: Midportion right lobe. Size: 0.2 x 0.2 x 0.1 cm, volume 0.004 mL. Nodule characteristics: Composition: Undetermined (2) Echogenicity: Hypoechoic (2). Shape: Not taller than wide (0). Margins: Smooth (0). Echogenic Foci: None (0). ACR TI-RADS total points: 4 ACR TI-RADS category: 4 NODES: No lymphadenopathy is seen in the tissue surrounding the thyroid gland. US/US thyroid IMPRESSION: ACR TI RADS category 2 and 4. ACR TI-RADS RECOMMENDATION REFERENCE: Ultrasound-guided fine-needle aspiration, followup ultrasound, no further follow up. * TR1 (0 point) and TR2 (2 points): No FNA or follow up. * TR3 (3 points): FNA if more than or equal to 2.5 cm in maximum dimension, followup ultrasound in 1, 3 and 5 years if 1.5 to 2.4 cm in maximum dimension. * TR4 (4-6 points): FNA if more than or equal to 1.5 cm in maximum dimension, followup ultrasound in 1, 2, 3 and 5 years if 1 to 1.4 cm in maximum dimension. * TR5 (more than or equal to 7 points): FNA if more than or equal to 1 cm in maximum dimension, followup ultrasound every year for 5 years if 0.5 to 0.9 cm in maximum dimension. * TR3, TR4 or TR5 nodules that are below the size threshold for followup receive no follow up. Electronically signed by: Ranjith Rai MD 10/12/2025 03:40 PM [facility] AN[facility]
--- OUTSIDE RECORDS SUMMARY | 2025-10-13 04:47 | XMS_ITS | Clinical Summary ---
Author Organization [facility] Address [address] [place] [address] Phone Care Team Providers Care Technical Lead Name Role Phone Cesilia Alston NP Primary Care Provider [phone] Allergies No known active allergies Medications oxyCODONE (OXY-IR) 5 mg immediate release capsule Take 1 capsule (5 mg total) by mouth every 6 (six) hours if needed for severe pain. Max Daily Amount: 20 mg 15 capsule 10/03/2024 Active Active Problems Problem Noted Date Diagnosed Date Neuropathy Medical History Medical History Date Comments Diabetes mellitus ([facility] V24, [facility] V28) Asthma Neuropathy Social History Tobacco Use [...] Health Maintenance Due Date Last Done Comments Colorectal Cancer Screening: Colonoscopy 1961 Diabetes: Annual Foot Exam 1971 Diabetes: Annual Retina Eye Exam 1971 RSV Immunization Adult Patients (1 - Risk 50-74 years 1-dose series) 2011 HIV Screening 12/20/2023 Hepatitis C Screening 12/20/2023 [...] Procedure Name Priority Date/Time Associated Diagnosis Comments COMPREHENSIVE METABOLIC PANEL STAT 01/10/2025 12:12 PM EST from Last 3 Months or Most Recently Relevant to Health Maintenance Results * (ABNORMAL) Comprehensive metabolic panel (01/10/2025 12:12 PM EST) Sodium 135 133 - 145 mmol/L LAB CHEMISTRY METHOD 01/10/2025 1:05 PM [facility] Potassium 4.1 3.5 - 5.5 mmol/L LAB CHEMISTRY METHOD 01/10/2025 1:05 PM [facility] Chloride 105 96 - 110 mmol/L LAB CHEMISTRY METHOD 01/10/2025 1:05 PM [facility] CO2 24 21 - 32 mmol/L LAB CHEMISTRY METHOD 01/10/2025 1:05 PM [facility] Anion Gap 6 3 - 11 LAB CHEMISTRY METHOD 01/10/2025 1:05 PM [facility] Glucose 382(H) 70 - 100 mg/dL LAB CHEMISTRY METHOD 01/10/2025 1:05 PM [facility] BUN 14 5 - 25 mg/dL LAB CHEMISTRY METHOD 01/10/2025 1:05 PM [facility] Creatinine 1.19 0.70 - 1.30 mg/dL LAB CHEMISTRY METHOD 01/10/2025 1:05 PM [facility] eGFR 69 >=60 mL/min/1. 73m2 LAB CHEMISTRY METHOD 01/10/2025 1:05 PM [facility] Comment:Calculation based on the Chronic Kidney Disease Epidemiology Collaboration (CKD-EPI) equation refit without adjustment for race. BUN/Creatinine Ratio 11.8 LAB CHEMISTRY METHOD 01/10/2025 1:05 PM [facility] Calcium 8.7 8.5 - 10.5 mg/dL LAB CHEMISTRY METHOD 01/10/2025 1:05 PM [facility] AST (SGOT) 13 10 - 42 unit/L LAB CHEMISTRY METHOD 01/10/2025 1:05 PM [facility] ALT (SGPT) 33 10 - 60 unit/L LAB CHEMISTRY METHOD 01/10/2025 1:05 PM [facility] Alkaline Phosphatase 151(H) 42 - 121 unit/L LAB CHEMISTRY METHOD 01/10/2025 1:05 PM [facility] Total Protein 7.1 6.0 - 8.0 g/dL LAB CHEMISTRY METHOD 01/10/2025 1:05 PM [facility] Albumin 3.9 3.2 - 5.0 g/dL LAB CHEMISTRY METHOD 01/10/2025 1:05 PM [facility] Total Bilirubin 0.7 0.0 - 1.4 mg/dL LAB CHEMISTRY METHOD 01/10/2025 1:05 PM [facility] Blood Venous blood specimen / Unknown Venipuncture / Unknown 01/10/2025 12:12 PM EST 01/10/2025 12:16 PM EST us [facility] BLOOD ORDERABLES Final R esult [facility] [address] [place] [address], from Last 3 Months or Most Recently Relevant to Health Maintenance Insurance [facility] MEDIC[facility] Member Subscriber Plan / Payer (Ef fective 2018-Present) Name:DICK ROSALES Relation to Subscriber:Self Name:Dick Rosales Sr Payer ID:[id number] Group ID:[id number] Type:Not on file Address: [facility] [address] [place] [id number] Care Teams Technical Lead Relationship Specialty Start Date End Date Cesilia Alston NP [address] [place] [address] [place] [phone] PCP - General 10/03/24
== END 2025-10-12 14:32 | disposition home or self-care (01) ==
LOC: HO.US 14:31
PROVIDERS: PCP Nurse Practitioner Primary Care; Visit Provider Nurse Practitioner Primary Care
DX: E04.1 Nontoxic single thyroid nodule (principal)
CPT/HCPCS: 76536

== ENCOUNTER → 2025-10-12 14:33 | Outpatient (BNV) | payer OTHER, SELFPAY | PROVIDERS: PCP Nurse Practitioner Primary Care; Visit Provider Radiology Diagnostic Radiology | DX: E04.1 Nontoxic single thyroid nodule (principal) | CPT/HCPCS: 76536 ==

== ENCOUNTER 2025-10-21 14:37 | Emergency (ER) | payer OTHER, SELFPAY ==
[2025-10-21 14:45] VITALS: BP 118/56; PULSE 84; RESP 16; TEMP 36.7; O2SAT 96; BMI 29.8
--- NOTE | 2025-10-21 14:45 | ED_ITS ---
HPI - General Adult General Chief complaint: Extremity Problem Stated complaint: arthritis pain Time Seen by Provider: 10/21/25 15:05 Source: patient, RN notes reviewed and old records reviewed History of Present Illness HPI narrative: 64-year-old male with pmhx significant for osteoarthritis, depression, anxiety, T2DM, neuropathy, GERD, asthma/COPD, sarcoidosis, bipolar 2 disorder presents to the ED due to 2 weeks of acute on chronic right hip pain. Patient states 2 weeks ago he was working on his car when he noticed pain getting worse in his right hip as the day progressed. Patient states this pain feels exactly the same as his baseline arthritic pain without change in quality or intensity, and denies injury/fall/trauma to the area. Patient reports he starts physical therapy for this hip pain on 11/04 and has f/u appointment with ortho however, he cannot remember when the appointment is. Patient reports taking naproxen and 500mg tylenol twice per day without relief of pain. Denies fevers, abdominal pain, nausea, vomiting, chest pain, shortness of breath, urinary symptoms MD complaint: R hip pain Related Data Home Medications ?Medication ?Instructions ?Recorded ?Confirmed clonazepam 0.5 mg tablet 0.5 mg PO DAILY PRN 10/13/22 dulaglutide 0.75 mg/0.5 mL mg subcut 10/13/22 subcutaneous pen injector (Trulicity) CPAP (CPAP Machine/Device) 04/13/23 dulaglutide 1.5 mg/0.5 mL mg subcut 05/19/24 subcutaneous pen injector (Trulicity) buspirone 10 mg tablet 10 mg PO TID 02/06/25 Previous Rx's ?Medication ?Instructions ?Recorded insulin glargine 100 unit/mL 20 unit (0.2 mL) subcut B EDTIME 06/22/22 subcutaneous solution (Lantus #10 mL U-100 Insulin) prazosin 5 mg capsule 5 mg PO DAILY #30 caps 06/22 prazosin 5 mg capsule 10 mg PO BEDTIME #60 caps blood sugar diagnostic #10 ea 07/21/22 duloxetine 30 mg capsule,delayed 90 mg (3 x 30 mg) PO BEDTIME #90 07/21/22 release caps gabapentin 600 mg tablet 600 mg PO TID #90 tabs 07/21 insulin syringe-needle U-100 1 mL #100 ea 07/21/22 29 gauge x 1/2 (Insulin Syringe) lancets 33 gauge #100 ea 07/21/22 quetiapine 200 mg tablet 200 mg PO BEDTIME #30 tabs 0 07/21/22 quetiapine 50 mg tablet 50 mg PO BID@0800,1400 #60 t abs 07/21/22 cyclobenzaprine 10 mg tablet 10 mg PO BEDTIME PRN musc le spasm 08/04/22 #7 tabs insulin glargine 100 unit/mL (3 24 unit (0.24 mL) subc ut QAM #15 mL 08/04/22 mL) subcutaneous pen (Lantus Solostar U-100 Insulin) meloxicam 15 mg tablet 15 mg PO DAILY 30 days #30 t abs 01/09/24 bisacodyl 5 mg tablet,delayed 20 mg (4 x 5 mg) PO ONCE 1 day #4 10/21/24 release (Dulcolax (bisacodyl)) tabs polyethylene glycol 3350 17 238 g PO ONCE 1 day #238 g vero 10/21/24 gram/dose oral powder (Miralax) naproxen 500 mg tablet 500 mg PO Q12H PRN pain (sca le 05/20/25 score 1-3) #20 tabs albuterol sulfate 2.5 mg/3 mL 2.5 mg (3 mL) inhalation BID 30 06/05/25 (0.083 %) solution for nebulization days #180 mL albuterol sulfate 90 mcg/actuation 2 puff inhalation Q 4H PRN 06/05/25 aerosol inhaler (Ventolin HFA) bronchospasm #6.7 grams fluticasone fur. 100 mcg-umeclid 1 inh inhalation PAULA Y 30 days #60 06/05/25 62.5 mcg-vilant 25 mcg ea inhalat.powder (Trelegy Ellipta) ketorolac 10 mg tablet 10 mg PO Q8H PRN pain 3 days #9 10/21/25 tabs acetaminophen 500 mg tablet 1,000 mg (2 x 500 mg) PO Q 8H PRN 10/31/25 (Tylenol Extra Strength) pain #30 tabs lidocaine 5 % topical patch 1 patch topical DAILY #30 ea 10/31/25 morphine 15 mg immediate release 15 mg PO Q6H PRN valeri re pain 10/31/25 tablet (scale score 7-10) #7 tabs naproxen 500 mg tablet 500 mg PO BID PRN pain #30 t abs 10/31/25 Allergies Allergy/AdvReac Type Severity Reaction Status Date / Time No Known Allergies Allergy Verified 10/31/25 08:12 Review of Systems Review of Systems: Yes all other systems are reviewed and are negative [facility] Past Medical History Attestation statement: The following information was validated with the patient. Source: old records reviewed and nursing notes reviewed Medical History Tubular adenoma of colon Nicotine dependence, cigarettes, uncomplicated Thyroid nodule Pulmonary nodules Bronchopneumonia Post traumatic stress disorder (PTSD) Bipolar II disorder Hallucination, visual Chronic bronchitis with wheezing Asthma-COPD overlap syndrome Pneumonitis Hyperhidrosis Back pain Diabetes Neuropathy Anxiety PTSD (post-traumatic stress disorder) Depression Gout Sarcoidosis GERD (gastroesophageal reflux disease) Surgical History History of colonoscopy History of bronchoscopy Family History Family History Father Myocardial infarction Mother No problems noted. Social History Social History Household Members: None Housing: House Housing Other:: rent Do you presently have visiting nurse or other home services: Yes Alcohol intake: current Alcohol intake frequency: holidays/special occasions only Patient Tobacco Use Status: Current everyday Tobacco user Tobacco use type: Cigarette Cigarette Packs Per Day: 1 Cigarettes Per Day: 7 Years Smoked: 52, prior 2 ppd smoker since age of 10 e-Cigarette/Vaping Use: Never Used Second Hand Smoke Exposure: Yes Substance Use Type: Marijuana service: No Sexual orientation: Straight/Heterosexual Physical Exam ED Vital Signs: Vital Signs - 24 hr 10/21/25 14:45 Temperature 98.1 F Pulse Rate 84 Respiratory Rate 16 Blood Pressure 118/56 L Pulse Oximetry 96 Oxygen Delivery Method Room Air BMI result Body Mass Index 29.8 GENERAL APPEARANCE: ?AxOx4, nontoxic appearing, no acute distress. HEENT: ?NC, AT. MMM. EOMI, clear conjunctiva, oropharynx clear. NECK: ?Supple without lymphadenopathy.? No stiffness or restricted ROM. HEART:? Normal rate and regular rhythm, normal S1/S2, no m/r/g LUNGS:? CTAB, moving air well. No crackles or wheezes are heard. ABDOMEN: ?Soft, nontender, nondistended with good bowel sounds heard. BACK: No CVAT, no obvious deformity. TTP of R side lumbar paraspinal muscles, no midline spinal tenderness, no overlying skin changes, ROM intact, EXTREMITIES: ?Without cyanosis, clubbing or edema. TTP of right greater trochanter region, no erythema, warmth or edema to the area, no overlying skin changes, full ROM intact including extension, flexion however does have some pain which is most significant in flexion of the hip, patient able to ambulate with cane with mild limp due to pain of R hip NEUROLOGICAL: ?Grossly nonfocal. Alert and oriented, moving all 4 extremities. Observed to ambulate with normal gait. Skin: ?Warm and dry without any rash. Course Course Course Narrative: This is a Rapid Medical Exam performed in triage by Linda Renteria PA-C. Full HPI, ROS and PE to be performed by primary ED provider. 64-year-old male with a past medical history of arthritis, diabetes, bipolar, PTSD, sarcoidosis, asthma/COPD, GERD, presenting to the ED c/o bilateral hip pain worsening over the past week. Admits to taking Naproxen w/o relief. Denies injury/falls PE: ambulating w/slow steady gait w/cane Plan: Pain control Medications Administered Discontinued Medications Generic Name Dose Route Start Last Admin Trade Name Freq PRN Reason Stop Dose Admin Acetaminophen 1,000 mg in 100 mls @ 400 mls/hr 10/21/25 15:27 10/21/25 16:03 Ofirmev IV 10/21/25 15:41 Infused ONCE ONE Infusion Ketorolac Tromethamine 15 mg 10/21/25 15:27 10/21/25 15:48 Ketorolac Tromethamine 15 Mg/Ml Vial IVPUSH 10/21/25 15:28 15 mg ONCE ONE Administration Medical Decision Making Medical Decision Making MDM Narrative: 64-year-old male with pmhx significant for osteoarthritis, depression, anxiety, T2DM, neuropathy, GERD, asthma/COPD, sarcoidosis, bipolar 2 disorder presents to the ED due to 2 weeks of acute on chronic right hip pain. Patient was working on his car 2 weeks ago that seemed to aggravate his pain. Patient with history of osteoarthritis of the right hip, is starting physical therapy from referral if his PCP on 11/04, has future follow up with ortho however he is not sure when his appointment is. Patient denies injury, fall, trauma to the area. Patient taking naproxen and Tylenol 2 times per day. VS on initial observation-BP 118/56, pulse rate of 84, respiratory rate of 16, afebrile with oral temp of 98.1?, O2 saturation 96% on room air. On physical exam lungs clear to auscultation bilaterally, cardiac exam reveals normal rate and rhythm without murmurs/rubs/gallops, patient TTP of right-sided lumbar paraspinal muscles without midline spinal tenderness, no overlying skin changes, lower extremities without edema, patient with TTP over right greater trochanter, full ROM including extension, flexion intact with pain greatest when in flexion, the limb is neurovascularly intact Patient with acute on chronic right-sided hip pain. Patient states that this flare feels exactly similar to prior osteoarthritic flares, has not changed in quality or intensity however has not been able to manage the pain with his usual dose of naproxen causing him to present to the ED for help with pain management. On chart review, patient had x-ray of the pelvis done on 06/24/2025 which revealed osteoarthritis of both hips. Patient denies any fall, injury or trauma to the area since this imaging has been done. Patient's symptoms most consistent with lumbar back strain, with acute exacerbation of osteoarthritis of his hips. Patient afebrile in the department today, with ROM intact. Patient being medicated with 1 g IV Tylenol, 15 mg Toradol. Patient to begin physical therapy for hip pain on 11/04, and has follow up with orthopedics in the future. Patient will be discharged with 3 days of Toradol for pain management, with in structions to take 500 mg Tylenol, and 400 mg ibuprofen after finishing Toradol Course every 6 hours for pain management. I encouraged patient to follow up with his primary care doctor to ensure management of his pain. Discharge Plan Discharge Clinical Impression: Osteoarthritis of hip Patient Disposition: Home, Self-Care Instructions: Osteoarthritis (DC) Additional Instructions: You were evaluated in the emergency department today due to hip pain. You were medicated in the department with 15 mg IV Toradol which is a strong anti- inflammatory medication like ibuprofen, and 1 g of Tylenol given through the IV with significant improvement of your pain. You are being discharged with 3 days of Toradol which is a strong NSAID medication. While taking this medication please do not take your naproxen, meloxicam, or any other NSAIDs such as ibuprofen, Motrin, Aleve. You can resume these medications after you finish your course of Toradol. While you are taking Toradol, you can take 500 mg of Tylenol every 6 hours. I recommend that you stay on top of this medication as this will provide you pain relief as you await to start physical therapy and follow up with your primary care doctor. Additionally, you can apply ice and/or heat to the affected area whatever you feel like helps you most, please place a towel between the heat and/or ice and your skin to prevent zaldivar. Please follow up with your primary care doctor to ensure improvement of your symptoms. Please return to the emergency department if you experience fevers over 100.4? that are not controlled by Tylenol/ibuprofen, worsening pain of the hip, loss of sensation of the hip and/or leg, inability to bear weight on the leg, or any new/worsening/concerning symptoms. Prescriptions: New ketorolac 10 mg tablet 10 mg PO Q8H PRN (Reason: pain) 3 Days Qty: 9 0RF Rx Instructions: Patient was medicated with 15mg IV toradol for pain management. No Action bisacodyl [Dulcolax (bisacodyl)] 5 mg tablet,delayed release (DR/EC) 20 mg PO ONCE 1 Days Qty: 4 0RF Rx Instructions: take at noon the day before colonoscopy polyethylene glycol 3350 [Miralax] 17 gram/dose powder 238 g PO ONCE 1 Days Qty: 238 0RF Rx Instructions: the day before your procedure mix entire bottle with 64 ounces of a clear liquid. At 5pm drink 1 cup every 15 minutes until half is gone. At 10pm finish drinking remaining prep. duloxetine 30 mg Capsule,Delayed Release(Dr/Ec) 90 mg PO BEDTIME Qty: 90 0RF gabapentin 600 mg Tablet 600 mg PO TID Qty: 90 0RF quetiapine 200 mg Tablet 200 mg PO BEDTIME Qty: 30 0RF quetiapine 50 mg Tablet 50 mg PO BID@0800,1400 Qty: 60 0RF (DME) blood sugar diagnostic Strip See Rx Instructions Not Applicable BID Qty: 10 0RF Rx Instructions: As directed (DME) insulin syringe-needle U-100 [Insulin Syringe] 1 mL 29 gauge x 1/2 syringe See Rx Instructions .Route Qty: 100 0RF Rx Instructions: As directed (DME) lancets 33 gauge misc See Rx Instructions Not Applicable BID Qty: 100 0RF Rx Instructions: As directed prazosin 5 mg Capsule 10 mg PO BEDTIME Qty: 60 2RF Protocol: Hold for SBP< HOLD for SBP < : 90 prazosin 5 mg Capsule 5 mg PO DAILY Qty: 30 2RF Protocol: Hold for SBP< HOLD for SBP < : 90 insulin glargine [Lantus U-100 Insulin] 100 unit/mL Solution 20 unit subcut BEDTIME Qty: 10 2RF cyclobenzaprine 10 mg tablet 10 mg PO BEDTIME PRN (Reason: muscle spasm) Qty: 7 0RF insulin glargine [Lantus Solostar U-100 Insulin] 100 unit/mL (3 mL) insulin pen 24 unit subcut QAM Qty: 15 0RF naproxen 500 mg tablet 500 mg PO Q12H PRN (Reason: pain (scale score 1-3)) Qty: 20 0RF morphine 15 mg tablet 15 mg PO Q6H PRN (Reason: severe pain (scale score 7-10)) Qty: 7 0RF Rx Instructions: Partial Fill upon patient request. acetaminophen [Tylenol Extra Strength] 500 mg tablet 1,000 mg PO Q8H PRN (Reason: pain) Qty: 30 0RF naproxen 500 mg tablet 500 mg PO BID PRN (Reason: pain) Qty: 30 0RF lidocaine 5 % adhesive patch,medicated 1 patch topical DAILY Qty: 30 0RF Rx Instructions: leave on most painful area for up to 12 hrs Trulicity 0.75 mg/0.5 mL pen injector subcut clonazepam 0.5 mg tablet 0.5 mg PO DAILY PRN (DME) CPAP Machine/Device Device See Rx Instructions .Route Rx Instructions: As directed meloxicam 15 mg tablet 15 mg PO DAILY 30 Days Qty: 30 0RF buspirone 10 mg tablet 10 mg PO TID Trulicity 1.5 mg/0.5 mL pen injector subcut albuterol sulfate 2.5 mg /3 mL (0.083 %) solution for nebulization 2.5 mg inhalation BID 30 Days Qty: 180 11RF albuterol sulfate [Ventolin HFA] 90 mcg/actuation HFA aerosol inhaler 2 puff inhalation Q4H PRN (Reason: bronchospasm) Qty: 6.7 11RF Trelegy Ellipta 100-62.5-25 mcg blister with device 1 inh inhalation DAILY 30 Days Qty: 60 11RF Interventions: ED Discharge Assessment Last Done: 10/21/25 16:47 Discharge Date/Time: 10/21/25 16:47 Print Language: Turkish
--- NOTE | 2025-10-21 15:54 | PC.NURSE ---
20g IV access in right hand, placed by this RN. Medicated per PA orders. Care ongoing by this RN.
[2025-10-21 16:03] VITALS: BP 113/65; PULSE 80; RESP 18; O2SAT 97
[2025-10-21 16:47] VITALS: BP 113/65; PULSE 80; RESP 18; TEMP 36.6; O2SAT 97
--- OUTSIDE RECORDS SUMMARY | 2025-10-21 17:32 | XMS_ITS | Clinical Summary ---
Author Organization [employer] Address [address] [place] [address] [address] [place] [address] Care Team Providers Care Gm Name Role Phone Naila Kerr FAISAL Primary Care Provider [phone] Lor Goldstein PharmD Unavailable [phone] Allergies No known active allergies Medications * [...] the morning, 2 at night 024 Active triamcinolone (Kenalog) 0.1 % cream Apply topically if needed in the morning and at bedtime (pain and swelling). 30 g 2 024 Active clotrimazole (Antifungal, Clotrimazole,) 1 % creamIndications :Tinea pedis of both feet Apply topically 2 times daily. To feet 60 g 024 Active Trelegy Ellipta 100-62.5-25 MCG/ACT aerosol powderIndication s:Asthma with acute exacerbation, unspecified asthma severity, unspecified whether persistent Inhale 1 Inhalation Once daily. 28 each 2 025 Active traZODone (Desyrel) 50 MG tablet Active pen needle 31G x 5 mm miscIndications: Type 2 diabetes mellitus with hyperlipidemia (HCC) Use as instructed with insulin administration twice daily 100 each 3 025 2025 Active insulin lispro (HumaLOG) 100 UNIT/ML injectionIndicat ions:Type 2 diabetes mellitus with hyperlipidemia (HCC) INJECT 4 UNITS SUBCUTANEOUSLY ONCE DAILY BEFORE DINNER *DO NOT USE IF SKIPPING MEAL* 15 mL 025 Active gabapentin (Neurontin) 300 MG capsuleIndicatio ns:Diabetic polyneuropathy associated with type 2 diabetes mellitus (HCC) Take 1 capsule at bedtime with 800mg tablet 30 capsule Active TRUEplus Lancets 33G miscIndications: Type 2 diabetes mellitus with hyperlipidemia (HCC) Use TID or more as needed to check BG 100 each Active Continuous Glucose Bottom Turner (FreeStyle Corry 3 [place]) deviceIndication s:Type 2 diabetes mellitus with hyperlipidemia (HCC) 1 each Once per day. Use as directed for CGM 1 each Active Continuous Glucose Sensor (FreeStyle Corry 3 Plus Sensor) miscIndications: Type 2 diabetes mellitus with hyperlipidemia (HCC) 1 each every 15 days. Apply 1 every 15 days as directed for CGM 2 each Active glucose blood (FreeStyle Precision Jim Test) test stripIndications :Type 2 diabetes mellitus with hyperlipidemia (HCC) Test blood sugar q 8 hours 100 each 12 Active aspirin 81 MG EC tabletIndication s:Diabetic polyneuropathy associated with type 2 diabetes mellitus (HCC),Type 2 diabetes mellitus with hyperlipidemia (HCC) Take 1 tablet (81 mg) by mouth Once per day. 90 tablet 025 2025 Active Blood Glucose Monitoring Suppl (FreeStyle [place] Lite) w/Device kitIndications:T ype 2 diabetes mellitus with hyperlipidemia (HCC) Use to test blood sugar 3 times daily or as needed 1 kit 025 Active Alcohol Swabs 70 % padsIndications: Type 2 diabetes mellitus with hyperlipidemia (HCC) Use to test blood sugar 3 times daily or PRN 100 each Active FREESTYLE LITE test stripIndications :Type 2 diabetes mellitus with hyperlipidemia (HCC) Use to test blood sugar 3 times daily or PRN 100 each 2025 Active polyethylene glycol, PEG, 3350 (MiraLax) 17 GM/SCOOP powderIndication s:Constipation, unspecified constipation type Take 1 scoop once or twice daily as needed for constipation until regular BM, then stop 510 g Active senna-docusate sodium (Senokot-S) 8.6-50 MG tabletIndication s:Constipation, unspecified constipation type Take 1 tablet by mouth Once per day. 90 tablet 3 025 2025 Active naproxen sodium (Aleve) 220 MG tabletIndication s:Acute right hip pain,Chronic hip pain, bilateral Take 1 tablet (220 mg) by mouth if needed at bedtime for mild pain. 30 tablet 1 025 2025 Active ARIPiprazole (Abilify) 30 MG tablet Active busPIRone (Buspar) 10 MG tablet Active atorvastatin (Lipitor) 80 MG tabletIndication s:Type 2 diabetes mellitus with hyperlipidemia (HCC) Take 1 tablet (80 mg) by mouth at bedtime. 90 tablet Active Dulaglutide (Trulicity) 0.75 MG/0.5ML solution auto-injectorInd ications:Type 2 diabetes mellitus with hyperlipidemia (HCC) Inject 0.75 mg under the skin every 7 (seven) days. 2 mL 1 025 Active insulin glargine (Lantus SoloStar) 100 UNIT/ML penIndications:T ype 2 diabetes mellitus with hyperlipidemia (HCC) Inject subcutaneously 28 units once daily 15 mL Active QUEtiapine (SEROquel) 200 MG tablet TAKE 1 TABLET BY MOUTH EVERYDAY AT BEDTIME 023 2024 Discontinued(M ed list cleanup (will not trigger notification to Pharmacy)) ARIPiprazole (Abilify) 20 MG tablet 025 2024 Discontinued(M ed list cleanup (will not trigger notification to Pharmacy)) busPIRone (Buspar) 15 MG tablet 025 2024 Discontinued(M ed list cleanup (will not trigger notification to Pharmacy)) insulin glargine (Lantus SoloStar) 100 UNIT/ML penIndications:T ype 2 diabetes mellitus with hyperlipidemia (HCC) Inject subcutaneously 36 units once daily 15 mL 025 2024 Discontinued(R eorder (will not trigger notification to Pharmacy)) Dulaglutide (Trulicity) 0.75 MG/0.5ML solution auto-injectorInd ications:Type 2 diabetes mellitus with hyperlipidemia (HCC) Inject 0.75 mg under the skin every 7 (seven) days. 2 mL 1 025 2024 Discontinued(R eorder (will not trigger notification to Pharmacy)) atorvastatin (Lipitor) 80 MG tabletIndication s:Type 2 diabetes mellitus with hyperlipidemia (HCC) Take 1 tablet (80 mg) by mouth at bedtime. 30 tablet 11 025 2024 Discontinued(R eorder (will not trigger notification to Pharmacy)) naproxen sodium (Aleve) 220 MG tabletIndication s:Acute right hip pain,Chronic hip pain, bilateral Take 1 tablet (220 mg) by mouth if needed at bedtime for mild pain. 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 Foot pain, bilateral 05/23/2024 Non compliance w [...] 09/11/2023 Type 2 diabetes mellitus with hyperlipidemia 12/201909/11/2023 Overview (05/05/2024): W/ neuropathy Lab Results Component [...] Encounters Date Type Department Care Team Description 10/19/[address] [address] Naila Kerr ANP Med Refill 10/19/[address] [address] Lor Goldstein, PharmD Type 2 diabetes mellitus with hyperlipidemia (HCC) 10/19/2025 Travel 10/15/2025 1:00 PM EST Office Visit [address] [address] Naila Kerr ANP Thyroid nodule greater than or equal to 1.5 cm in diameter incidentally noted on imaging study (Primary Dx); Type 2 diabetes mellitus with hyperlipidemia (HCC); Constipation, unspecified constipation type; Screening for malignant neoplasm of colon; Acute right hip pain; Chronic hip pain, bilateral 10/15/2025 Travel 10/14/[address] [address] Naila Kerr ANP chart prep 10/09/2025 Travel 09/28/2025 Results Follow-Up [address] Lung Screening Low dose, US Thyroid 09/23/[address] [address] Naila Kerr ANP 09/18/2025 Orders Only [address] [address] Berry Choi MD Type 2 diabetes mellitus with hyperlipidemia (HCC) (Primary Dx) 09/16/[address] [address] Lor Goldstein, Chandu 09/02/2025 Orders Only [facility] External Provider, [facility] 08/25/[address] [address] Naila Kerr ANP 08/20/2025 2:40 PM EDT Office Visit [facility] [address] [place] [id number] Tamela Lopez MD Chronic hip pain, bilateral (Primary Dx); Acute right hip pain; Osteoarthritis of both hips, unspecified osteoarthritis type 08/20/2025 Travel 08/17/2025 Telephone [facility] [address] [place] [address] Lro Goldstein, PharmD 08/10/[address] [address] Naila Kerr ANP nov recall 08/03/2025 Results Follow-Up [address] [address] Naila Kerr ANP Lipid Panel, Standard, Comprehensive Metabolic Panel 07/29/[address] [address] Lor Goldstein, RachelD Prior Authorization 07/24/2025 Travel 07/21/2025 9:30 AM EDT Office Visit [address] [address] Naila Kerr ANP Diabetic polyneuropathy associated with type 2 diabetes mellitus (CMS/HCC) (Primary Dx); Type 2 diabetes mellitus with hyperlipidemia (CMS/HCC) (CMS/HCC); Non compliance w medication regimen 07/21/[address] [address] Berry Choi MD 07/21/2025 Travel from Last 3 Months Immunizations Immunization Administration Dates Next Due Influenza, IIV3, injectable 09/16/2010 Influenza, seasonal, injectable, preservative fr ee 10/25/2018 Moderna Covid-19 Vaccine 12+ 04/28/2021,03/31/20 21 Pneumococcal Conjugate PCV 20 12/06/2023 Pneumococcal Polysaccharide PPSV23 01/08/2013 Tdap 12/24/2023 Zoster, Recombinant 12/24/2023 Social History Tobacco Use Types Packs/Day Years Used Date Smoking Tobacco: Every Day Cigarettes 0.3 0.9 Started: 12/14/2024; Last attempted to quit: 2020 Passive Smoke Exposure: Current Smokeless Tobacco: Never Tobacco Cessation:Ready to Q uit: Not Asked; Counseling Given: Not Answered Depression Answer Date Recorded Patient Health Questionnaire-9 Score 7 10/15/2025 Patient Health Questionnaire-9 Score 7 10/15/2025 Last PHQ-9: Questionnaire Data Not on file 1 12/15/2024 Housing Stability Answer Date Recorded What is [...] Answer Date Recorded Patient Health Questionnaire-2 Score 2 10/15/2025 Internet Access Answer Date Recorded Internet Access [...] Sign Reading Time Taken Comments Blood Pressure 100/60 10/19/2025 9:17 AM EST Pulse 77 10/19/2025 9:17 AM EST Temperature 36.1 C (97 F) 10/15/2025 1:11 PM EST Respiratory Rate 14 10/15/2025 1:11 PM EST Oxygen Saturation 95% 10/15/2025 1:11 PM EST Inhaled Oxygen Concentration - - Weight 103 kg (226 lb) 10/15/2025 1:11 PM EST Height 182.9 cm (6') 10/15/2025 1:11 PM EST Body Mass Index 30.65 10/15/2025 1:11 PM EST Plan of Treatment Upcoming Encounters Date Type Department Care Team (Late st Contact Info) Description 11/23/2025 9:00 AM EST Medication Management [facility] [address] [place] [address] Lor Goldstein, PharmD [address] [place] [address] Health Maintenance Due Date Last Done Comments CT Colonography 1961 Colonoscopy 1961 Colorectal Cancer Screening 1961 Dental X-Ray: Bitewings 1961 FIT DNA/Cologuard 1961 FIT 1961 FOBT 1961 Sigmoidoscopy 1961 Eye Exam 1971 Hepatitis C Screening 1979 Dental Prophylaxis 09/25/2009 03/25/2009 Dental Oral Exam 11/04/2009 05/04/2009 RSV Patients and Patients Aged 60 years or older (1 - Risk 50-74 years 1-dose series) 2011 Diabetes: Urine Protein Screening 01/25/2021 01/26/2020 Zoster Vaccines (2 of 2) 02/18/2024 12/24/2023 COVID-19 Vaccine (3 - season) 2025 04/28/2021, 03/31/2021 Influenza Vaccine (#1) 2025 10/25/2018, 2009 Diabetes: Hemoglobin A1C 01/15/2026 025, 07/21/2025, 01/27/2025, Additional history exists SDOH Screening 01/20/2026 01/20/2025 Alcohol/Substance Use Screening 01/27/2026 01/27/2025 Diabetes: Foot Exam 07/21/2026 07/21/2025, Lipid Panel 08/03/2026 08/03/2025, 01/15/2024 Disability Screening 10/09/2026 10/09/2025 Depression Screening 10/15/2026 10/15/2025, 10/15/20 Tobacco Screening 10/15/2026 10/15/2025 Dental X-Ray: Full Mouth 10/07/2027 10/06/2024 DTaP/Tdap/Td [...] every day Lifestyle No Shannan Rojas, PharmD Help patients manage their type 2 diabetes Care Plan Help patients manage their type 2 diabetes No Naila Kerr ANP Weekly blood pressure task Care Plan Weekly blood pressure task No Naila Kerr ANP Help patients manage their type 2 diabetes Care Plan Help patients manage their type 2 diabetes No Naila Kerr ANP Patient has chronic kidney disease Care Plan Patient has chronic kidney disease No Naila Kerr ANP Weekly blood pressure task Care Plan Weekly blood pressure task No Zelda Mclaughlin RN Patient has chronic kidney disease Care Plan Patient has chronic kidney disease No Zelda Mclaughlin, RN Weekly blood pressure task Care Plan Weekly blood pressure task No Bella Reece MA Weekly blood pressure task Care Plan Weekly blood pressure task No Bella Reece MA Patient has chronic kidney disease Care Plan Patient has chronic kidney disease No Bella Reece MA Patient has chronic kidney disease Care Plan Patient has chronic kidney disease No Bella Reece MA Weekly blood pressure task Care Plan Weekly blood pressure task No Naila Kerr ANP Weekly blood pressure task Care Plan Weekly blood pressure task No Naila Kerr ANP Patient has chronic kidney disease Care Plan Patient has chronic kidney disease No Naila Kerr ANP Patient has chronic kidney disease Care Plan Patient has chronic kidney disease No Naila Kerr ANP Weekly blood pressure task Care Plan Weekly blood pressure task No Bucky Coyleessa Weekly blood pressure task Care Plan Weekly blood pressure task No Leonides, Ryann Patient has chronic kidney disease Care Plan Patient has chronic kidney disease No Leonides Ryann Patient has chronic kidney disease Care Plan Patient has chronic kidney disease No Leonides, Ryann Weekly blood pressure task Care Plan Weekly blood pressure task No Tracie-Lor Lynne, PharmD Weekly blood pressure task Care Plan Weekly blood pressure task No Piers-Lynne Lor, PharmD Patient has chronic kidney disease Care Plan Patient has chronic kidney disease No Piers-Lynne Lor, PharmD Patient has chronic kidney disease Care Plan Patient has chronic kidney disease No Piers-Lynne Felicitassa, PharmD Weekly blood pressure task Care Plan Weekly blood pressure task No Odell Simpson Weekly blood pressure task Care Plan Weekly blood pressure task No Odell Simpson Patient has chronic kidney disease Care Plan Patient has chronic kidney disease No Odell Simpson Patient has chronic kidney disease Care Plan Patient has chronic kidney disease No Odell Simpson Weekly blood pressure task Care Plan Weekly blood pressure task No Adri Ferreira [employer]ING [employer]ACHINE [employer]SEMBLER Weekly blood pressure task Care Plan Weekly blood pressure task No Adri Ferreira, COPING MACHINE ASSEMBLER Patient has chronic kidney disease Care Plan Patient has chronic kidney disease No Adri Ferreira COPING MACHINE ASSEMBLER Patient has chronic kidney disease Care Plan Patient has chronic kidney disease No Adri Ferreira, COPING MACHINE ASSEMBLER Procedures Procedure Name Priority Date/Time Associated Diagnosis Comments POCT GLYCATED HEMOGLOBIN, TOTAL Routine 10/15/2025 1:15 PM EST Type 2 diabetes mellitus with hyperlipidemia (HCC) POCT GLUCOSE Routine 10/15/2025 1:13 PM EST Type 2 diabetes mellitus with hyperlipidemia (HCC) US THYROID Urgent 10/12/2025 2:57 PM EST Left thyroid nodule LDCT LUNG SCREENING Routine 09/02/2025 2 :47 PM EDT COMPREHENSIVE METABOLIC PANEL Routine 08/03/2025 8:13 AM EDT Type 2 diabetes mellitus with hyperlipidemia (CMS/HCC) (CMS/HCC) LIPID PANEL, STANDARD Routine 08/03/2025 8:13 AM EDT Type 2 diabetes mellitus with hyperlipidemia (CMS/HCC) (CMS/HCC) POCT GLYCATED HEMOGLOBIN, TOTAL Routine 07/21/2025 9:48 AM EDT Type 2 diabetes mellitus with hyperlipidemia (CMS/HCC) (CMS/HCC) POCT GLUCOSE Routine 07/21/2025 9:47 AM EDT Type 2 diabetes mellitus with hyperlipidemia (CMS/HCC) (CMS/HCC) PANORAMIC RADIOGRAPHIC IMAGE Routine 10/06/2024 1:00 PM EST ZZZ HISTORICAL HIV AB/AG Routine 01/26/2020 11:06 AM EST ZZZ HISTORICAL MICROALBUMIN, RANDOM Routine 01/26/2020 11:05 AM EST PERIODIC ORAL EVALUATION - ESTABLISHED PATIENT Routine 05/04/2009 12:00 AM EDT PROPHYLAXIS - ADULT Routine 03/25/2009 1 2:00 AM EDT from Last 3 Months or Most Recently Relevant to Health Maintenance Results * (ABNORMAL) POCT Hgb A1c (10/15/2025 1:15 PM EST) Only the most recent of2 resultswithin the time period is included. Hemoglobin A1C 7.7(A) 4.0 - 5.7 % QC Media Lot # [id number] Lot# Expiration Date [id number] Blood 10/15/2025 1:15 PM EST us Naila Kerr ANP POINT OF CARE TEST ENTER/EDIT OR DERABLES Final Result * POCT Glucose (10/15/2025 1:13 PM EST) Only the most recent of2 resultswithin the time period is included. Glucose Blood, POC 153 60 - 200 mg/dL QC Media Lot # [id number] Lot# Expiration Date Blood Capillary blood specimen / Unknown 10/15/2025 1:13 PM EST us Naila Kerr ANP POINT OF CARE TEST ENTER/EDIT OR DERABLES Final Result * US Thyroid (10/12/2025 2:57 PM EST) Anatomical Region Laterality Modality Head, Neck Ultrasound 10/12/2025 2:57 PM EST Narrative 10/12/2025 3:42 PM EST [place] [address] Ultrasound Report Signed Patient: Dick Rosales MR#: [id number] 3 : 1960 Acct:[id number] Age/Sex: 64 / M ADM Date: 10/12/25 Loc: HO. Attending Dr: Naila Kerr NP Ordering Physician: NAILA KERR NP Date of Service: 10/12/25 Procedure(s): US thyroid Accession Number(s): [id number] cc: NAILA KERR NP Reason for Exam: incidental finding on lung cancer screening CT of L thyroid nodule 2cm EXAMINATION: US THYROID CLINICAL INFORMATION: Incidental finding on CT lung screening dated September 02, 2025. COMPARISON: None available. TECHNIQUE: Linear transducer grayscale and color Doppler examination with attention to the region of the thyroid. FINDINGS: SIZE: Measurements of the thyroid lobes and nodules are given in sagittal, anteroposterior and transverse dimensions respectively. Right Thyroid Lobe: 5.0 x 1.6 x 2.3 cm, volume 9.7 mL. Parenchyma: The gland echotexture is normal. Thyroid vascularity is normal. Left Thyroid Lobe: 4.5 x 1.9 x 2.7 cm, volume 11.9 mL. Parenchyma: The gland echotexture is normal. Thyroid vascularity is normal. Isthmus: 0.4 cm in maximum AP dimension. Estimated total number of nodules greater than or equal to 1 cm: 1. Outsole Cementer nodules are described as follows: 1. Location: Midportion left lobe. Size: 2.6 x 2.4 x 2.3 cm, volume 7.48 mL. Nodule characteristics: Composition: Mixed cystic and solid (1). Echogenicity: Undetermined (1) Shape: Not taller than wide (0). Margins: Smooth (0). Echogenic Foci: None (0). ACR TI-RADS total points: 2 ACR TI-RADS category: 2 2. Location: Midportion right lobe. Size: 0.2 x 0.2 x 0.1 cm, volume 0.004 mL. Nodule characteristics: Composition: Undetermined (2) Echogenicity: Hypoechoic (2). Shape: Not taller than wide (0). Margins: Smooth (0). Echogenic Foci: None (0). ACR TI-RADS total points: 4 ACR TI-RADS category: 4 NODES: No lymphadenopathy is seen in the tissue surrounding the thyroid gland. US/US thyroid IMPRESSION: ACR TI RADS category 2 and 4. ACR TI-RADS RECOMMENDATION REFERENCE: Ultrasound-guided fine-needle aspiration, followup ultrasound, no further follow up. * TR1 (0 point) and TR2 (2 points): No FNA or follow up. * TR3 (3 points): FNA if more than or equal to 2.5 cm in maximum dimension, followup ultrasound in 1, 3 and 5 years if 1.5 to 2.4 cm in maximum dimension. * TR4 (4-6 points): FNA if more than or equal to 1.5 cm in maximum dimension, followup ultrasound in 1, 2, 3 and 5 years if 1 to 1.4 cm in maximum dimension. * TR5 (more than or equal to 7 points): FNA if more than or equal to 1 cm in maximum dimension, followup ultrasound every year for 5 years if 0.5 to 0.9 cm in maximum dimension. * TR3, TR4 or TR5 nodules that are below the size threshold for followup receive no follow up. Electronically signed by: Ranjith Rai MD 10/12/2025 03:40 PM EST Dictated By: Ranjith Meade MD Signed By: <Electronically signed by Ranjith Brown MD in [place]> 10/12/25 1540 DD/ 1457 TD/TT: 10/12/25 1520 [employer] Department: Procedure Note Donotuseinterpreter, Image - 10/12/2025 [place] [address] Ultrasound Report Signed Patient: Dick Rosales AMR#: [id number] 3 : 2Acct:[id number] Age/Sex: 64 / MADM Date: 10/12/25 Loc: HO.US Attending Dr: Naila Kerr NP Ordering Physician: NAILA KERR NP Date of Service: 10/12/25 Procedure(s): US thyroid Accession Number(s): [id number] cc: NAILA KERR NP Reason for Exam: incidental finding on lung cancer screening CT of Lthyroid nodule 2cm EXAMINATION: US THYROID CLINICAL INFORMATION: Incidental finding on CT lung screening dated September 02, 2025. COMPARISON: None available. TECHNIQUE: Linear transducer grayscale and color Doppler examination with attention to the region of the thyroid. FINDINGS: SIZE: Measurements of the thyroid lobes and nodules are given in sagittal, anteroposterior and transverse dimensions respectively. Right Thyroid Lobe: 5.0 x 1.6 x 2.3 cm, volume 9.7 mL. Parenchyma: The gland echotexture is normal. Thyroid vascularity is normal. Left Thyroid Lobe: 4.5 x 1.9 x 2.7 cm, volume 11.9 mL. Parenchyma: The gland echotexture is normal. Thyroid vascularity is normal. Isthmus: 0.4 cm in maximum AP dimension. Estimated total number of nodules greater than or equal to 1 cm: 1. Outsole Cementer nodules are described as follows: 1. Location: Midportion left lobe. Size: 2.6 x 2.4 x 2.3 cm, volume 7.48 mL. Nodule characteristics: Composition: Mixed cystic and solid (1). Echogenicity: Undetermined (1) Shape: Not taller than wide (0). Margins: Smooth (0). Echogenic Foci: None (0). ACR TI-RADS total points: 2 ACR TI-RADS category: 2 2. Location: Midportion right lobe. Size: 0.2 x 0.2 x 0.1 cm, volume 0.004 mL. Nodule characteristics: Composition: Undetermined (2) Echogenicity: Hypoechoic (2). Shape: Not taller than wide (0). Margins: Smooth (0). Echogenic Foci: None (0). ACR TI-RADS total points: 4 ACR TI-RADS category: 4 NODES: No lymphadenopathy is seen in the tissue surrounding the thyroid gland. US/US thyroid IMPRESSION: ACR TI RADS category 2 and 4. ACR TI-RADS RECOMMENDATION REFERENCE: Ultrasound-guided fine-needle aspiration, followup ultrasound, no further follow up. * TR1 (0 point) and TR2 (2 points): No FNA or follow up. * TR3 (3 points): FNA if more than or equal to 2.5 cm in maximum dimension, followup ultrasound in 1, 3 and 5 years if 1.5 to 2.4 cm in maximum dimension. * TR4 (4-6 points): FNA if more than or equal to 1.5 cm in maximum dimension, followup ultrasound in 1, 2, 3 and 5 years if 1 to 1.4 cm in maximum dimension. * TR5 (more than or equal to 7 points): FNA if more than or equal to 1 cm in maximum dimension, followup ultrasound every year for 5 years if 0.5 to 0.9 cm in maximum dimension. * TR3, TR4 or TR5 nodules that are below the size threshold for followup receive no follow up. Electronically signed by: aRnjith Rai MD 10/12/2025 03:40 PM EST Dictated By: Ranjith Meade MD Signed By: <Electronically signed by Ranjith Brown MDin OV> 10/12/25 1540 DD/ 1457 TD/TT: 10/12/25 1520 Supervisor [employer] Department: us Naila Kerr ANP IMG US PROCEDURES Final Result * CT Lung Screening Low dose (09/02/2025 2:47 PM EDT) Anatomical Region Laterality Modality Lung Computed Tomogra phy 09/02/2025 2:47 PM EDT Narrative 09/02/2025 3:11 PM EDT [address] [address] [address] Scan Report Signed Patient: Dick Rosales MR#: [id number] 3 : 1960 Acct:[id number] Age/Sex: 64 / M ADM Date: 09/02/25 Loc: HO.CT Attending Dr: Rosalina Araiza PA-C Ordering Physician: Rosalina Araiza PA-C Date of Service: 09/02/25 Procedure(s): CT lung screening Accession Number(s): [id number] cc: Rosalina Araiza PA-C; NAILA KERR NP Report Number: [id number]: Total DLP = 86.00 mGy-cm Reason for Exam: F17.210 - Nicotine dependence, cigarettes, uncomplicated EXAMINATION: CT LUNG SCREENING HISTORY: F17.210 - Nicotine dependence, cigarettes, uncomplicated TECHNIQUE: Low dose axial images were obtained from the sternal notch to upper abdomen without IV contrast per standard departmental protocol. Sagittal and coronal reformatted images were also obtained and reviewed. One or more of the following techniques was used for dose reduction: Automated exposure control, adjustment of the mA and/or kV according to patient size, use of iterative reconstruction technique. DLP: 86 mGy-cm COMPARISON: Comparison is made with the prior examination dated 04/17/2024. FINDINGS: Lung nodules: Again seen is a tiny cluster of nodules in the right upper lobe (series 4, image 38). Additional 1-2 mm nodules are noted in the right middle lobe (series 4, image 71) and in the left lower lobe (series 4, image 85). No new nodules are identified. Emphysema: none Coronary Calcification: severe Aortic Arch Calcification: mild Potentially Significant Incidentals : There is a 2.0 cm left thyroid nodule. Additional Chest Findings: There is no pleural or pericardial effusion. No mediastinal or axillary lymphadenopathy is identified. Visualized upper abdomen: The visualized portions of the liver, spleen, and adrenals have an unremarkable unenhanced appearance. CT/CT lung screening IMPRESSION: 1. No suspicious pulmonary nodules are identified. 2. 2.0 cm left thyroid nodule. Thyroid ultrasound should be considered. LUNG-RADS ASSESSMENT: Lung-RADS 2: Benign MANAGEMENT: Continue annual screening with LDCT in 12 months Category S: S Electronically signed by: Cali Benitez MD 09/02/2025 03:08 PM EDT RP Dictated By: Cali Benitez MD Signed By: <Electronically signed by Cali Benitez MD in OV> 09/02/25 1508 DD/ 1447 TD/TT: 09/02/25 1456 [employer] Department: Procedure Note Donotuseinterpreter, Image - 09/02/[address] [place] [address] [address] Scan Report Signed Patient: Dick Rosales AM[facility]#: [id number] 3 : [id number]:[id number] Age/Sex: 64 / MADM Date: 09/02/25 Loc: HO.CT Attending Dr: Rosalina Araiza PA-C Ordering Physician: Rosalina Araiza PA-C Date of Service: 09/02/25 Procedure(s): CT lung screening Accession Number(s): [id number] cc: Rosalina Araiza PA-C; NAILA KERR NP Report Number: [id number]: Total DLP = 86.00 mGy-cm Reason for Exam: F17.210 - Nicotine dependence, cigarettes, uncomplicated EXAMINATION: CT LUNG SCREENING HISTORY: F17.210 - Nicotine dependence, cigarettes, uncomplicated TECHNIQUE: Low dose axial images were obtained from the sternal notch to upper abdomen without IV contrast per standard departmental protocol. Sagittal and coronal reformatted images were also obtained and reviewed. One or more of the following techniques was used for dose reduction: Automated exposure control, adjustment of the mA and/or kV according to patient size, use of iterative reconstruction technique. DLP: 86 mGy-cm COMPARISON: Comparison is made with the prior examination dated 04/17/2024. FINDINGS: Lung nodules: Again seen is a tiny cluster of nodules in the right upper lobe (series 4, image 38). Additional 1-2 mm nodules are noted in the right middle lobe (series 4, image 71) and in the left lower lobe (series 4, image 85). No new nodules are identified. Emphysema: none Coronary Calcification: severe Aortic Arch Calcification: mild Potentially Significant Incidentals : There is a 2.0 cm left thyroid nodule. Additional Chest Findings: There is no pleural or pericardial effusion. No mediastinal or axillary lymphadenopathy is identified. Visualized upper abdomen: The visualized portions of the liver, spleen, and adrenals have an unremarkable unenhanced appearance. CT/CT lung screening IMPRESSION: 1. No suspicious pulmonary nodules are identified. 2. 2.0 cm left thyroid nodule. Thyroid ultrasound should be considered. LUNG-RADS ASSESSMENT: Lung-RADS 2: Benign MANAGEMENT: Continue annual screening with LDCT in 12 months Category S: S Electronically signed by: Cali Benitez MD 09/02/2025 03:08 PM EDT RP Dictated By: Cali Benitez MD Signed By: <Electronically signed by Cali Benitez MD in OV> 09/02/25 1508 DD/ 1447 TD/TT: 09/02/25 1456 Supervisor Jewelry Department: [facility] External Provider IMG CT PROCEDURES Final Result * (ABNORMAL) Lipid Panel, Standard (08/03/2025 8:13 AM EDT) Triglycerides 248(H) <150 mg/dL [facility] Comment:Desirable Triglyceri de: less than 150 mg/dLBorderline High Triglyceride 150-199 mg/dLHigh Triglyceride: 200-499 mg/dLVery High Triglyceride: greater than or equal to 5OO mg/dL Cholesterol 251(H) <200 mg/dL [facility] Comment:Desirable Cholestero l: less than 200 mg/dLBorderline High Cholesterol: 200-239 mg/dLHigh Cholesterol: greater than 239 mg/dL LDL Cholesterol Calculated 154(H) <100 mg/dL [facility] Comment:Desirable LDL: less than 100 mg/dLNear Optimal/Above Optimal LDL: 110- 129 mg/dLBorderline High LDL: 130-159 mg/dLHigh LDL: 160-189 mg/dLVery High LDL: greater than or equal to 190 mg/dL HDL Cholesterol 48 >40 mg/dL [facility] Comment:Desirable HDL: great er than 40 mg/dL Note: This HDL assay may give artificially low results in patients with liver disease. Blood Venous blood specimen / Unknown 08/03/2025 8:13 AM EDT 08/03/2025 11:16 AM EDT [facility] LAB BLOOD ORDERABLES Final Resul t [facility] [address] [place] [address] [phone] * (ABNORMAL) Comprehensive Metabolic Panel (08/03/2025 8:13 AM EDT) Sodium 141 135 - 145 mmol/L [facility] Potassium 4.0 3.3 - 5.1 mmol/L [facility] Chloride 109(H) 96 - 108 mmol/L [facility] Carbon Dioxide 24 22 - 29 mmol/L [facility] Anion Gap 12 12 - 20 [facility] Urea Nitrogen (BUN) 16 9 - 16 mg/dL [facility] Creatinine, Serum 0.92 0.5 - 1.4 mg/dL [facility] Estimated Glomerular Filt Rate >60 [facility] Comment:Chronic Kidney Disea se: Estimated GFR < 60 mL/min/[id number] Kidney Disease: Estimated GFR < 15 mL/min/1.73m2 Glucose 222(H) 60 - 115 mg/dL [facility] Calcium 9.3 8.4 - 10.2 mg/dL [facility] Bilirubin, Total 0.5 0.0 - 1.0 mg/dL [facility] Aspartate Amino Transferase 17 5 - 37 U/L [facility] Alanine Aminotransferase 23 0 - 40 U/L [facility] Total Protein 6.8 6.5 - 8.0 g/dL [facility] Albumin Level 4.3 3.5 - 5.0 g/dL [facility] Alkaline Phosphatase 107 39 - 117 U/L [facility] Blood Venous blood specimen / Unknown 08/03/2025 8:13 AM EDT 08/03/2025 11:16 AM EDT us Naila [facility] LAB BLOOD ORDERABLES Final Resul t Performing Organization Address [facility]/ZIP Co de Phone Number [facility] [address] [place] [address] [phone] * HIV AB/AG (01/26/2020 11:06 AM [...] of detection of this assay. The [employer] Validation Specialist HIV Ag/Ab Combo assay result and supplemental assay results should be interpreted in conjunction with the patient's clinical presentation, history and other laboratory results. If the results are inconsistent with clinical evidence, additional testing is suggested to confirm the result. 01/26/2020 11:0 6 AM EST us Cy Ruano MD HISTORICAL/NON ORDERABLE LAB S Final Result Performing Organization Address City/[facility]/ZIP Co de Phone Number [facility] [address] * MICROALBUMIN, RANDOM (01/26/2020 11:05 AM EST) CREATININE, RANDOM URINE 97.32 MG/DL [facility] MICALB/CRE RATIO RANDOM URINE 6.1 ug/mg cr [facility] Comment: Albumin/Creatinine Ratio Reference Ranges: Normal: < 30 ug/mg creatinine Microalbuminuria: 30 - 300 ug/mg creatinine Clinical Albuminuria: > 300 ug/mg creatinine MICROALBUMIN, RANDOM URINE 6.0 MG/L [facility] 01/26/2020 11:0 5 AM EST us Cy Ruano MD HISTORICAL/NON ORDERABLE LAB S Final Result [facility] [address] [place] [address], from Last 3 Months or Most Recently Relevant to Health Maintenance Additional Health Concerns Active Problems Noted Date Diagnosed Date Help patients manage their type 2 diabetes 10/13 Weekly blood pressure task 10/13/2025 Help patients manage their type 2 diabetes 10/13 Patient has chronic kidney disease 10/13/2025 Weekly blood pressure task 10/13/2025 Patient has chronic kidney disease 10/13/2025 Weekly blood pressure task 10/14/2025 Weekly blood pressure task 10/14/2025 Patient has chronic kidney disease 10/14/2025 Patient has chronic kidney disease 10/14/2025 Weekly blood pressure task 10/15/2025 Weekly blood pressure task 10/15/2025 Patient has chronic kidney disease 10/15/2025 Patient has chronic kidney disease 10/15/2025 Weekly blood pressure task 10/16/2025 Weekly blood pressure task 10/16/2025 Patient has chronic kidney disease 10/16/2025 Patient has chronic kidney disease 10/16/2025 Weekly blood pressure task 10/18/2025 Weekly blood pressure task 10/18/2025 Patient has chronic kidney disease 10/18/2025 Patient has chronic kidney disease 10/18/2025 Weekly blood pressure task 10/19/2025 Weekly blood pressure task 10/19/2025 Patient has chronic kidney disease 10/19/2025 Patient has chronic kidney disease 10/19/2025 Weekly blood pressure task 10/19/2025 Weekly blood pressure task 10/19/2025 Patient has chronic kidney disease 10/19/2025 Patient has chronic kidney disease 10/19/[address] [facility]ARE < 65 Care Teams Gm Relationship Specialty Start Date End Date Naila Kerr ANP [address] [place] [address] PCP - General Family Medicine 10/24/23 Lor Goldstein PharmD [address] [place] [address] Pharmacist Internal Medicine 02/15/25
--- OUTSIDE RECORDS SUMMARY | 2025-10-21 17:32 | XMS_ITS | Encounter Summary ---
Author Organization [employer] Address [address] [facility] 7 [place] [address] Care Team Providers Care Poured Pipe Maker Name Role Phone Cesilia Alston FAISAL Primary Care Provider [phone] Lor Goldstein PharmD Unavailable [phone] Reason for Visit * Reason Comments Med Refill Encounter Details Date Type Department Care Team ([facility] st Contact Info) Description 06/05/2025 Refill [facility] [address] [place] [address] Ritika Marsh MD [address] [place] [address] Type 2 diabetes mellitus with hyperlipidemia (CMS/HCC) ([facility]/HCC) Social History Tobacco Use Types Packs/Day [...] Description 11/23/2025 9:00 AM EST Medication Management [facility] [address] [place] [phone] Lor Goldstein PharmD [address] [place] [address] documented as of this encounter Goals Goal Patient Goal Type Associated Problems Recent Progress Patient-Stated? Author Take your medication every day Lifestyle Shannan Fiore, RcahelD documented as of this encounter Visit Diagnoses Diagnosis Type 2 diabetes mellitus with hyperlipidemia (HCC) documented in this encounter Additional Health Concerns Assessment Noted Time PHQ-9 Depression Total Score: 0 10/21/20 24 10:30 AM EST documented as of this encounter Care Teams Poured Pipe Maker Relationship Specialty Start Date End Date Cesilia Alston ANP [address] [place] [address] PCP - General Family Medicine 10/24/23 Lor Goldstein, RachelD [address] [place] [address] Pharmacist Internal Medicine 02/15/25 documented as of this encounter
--- OUTSIDE RECORDS SUMMARY | 2025-10-21 17:32 | XMS_ITS | Encounter Summary ---
Author Organization [employer] Address [address] [facility] 7t [place] [address] Care Team Providers Care Prime Minister Name Role Phone Cesilia Alston FAISAL Primary Care Provider [phone] Lor Goldstein PharmD Unavailable [phone] Reason for Visit * Reason Comments Med Refill Encounter Details Date Type Department Care Team ([facility] Contact Info) Description 07/25/2024 Refill [facility] [address] [place] [address] Ryann Watson MD [address] [place] [address] Social History Tobacco Use Types Packs/Day Years Used Date Smoking Tobacco: Every Day Cigarettes Passive Smoke Exposure: Current Smokeless Tobacco: Never Comments:Smoked < 1/2 PPD bu t unk if continues Housing Stability Answer Date Recorded What is your housing situation today? I have inez crystal 03/26/[address] you li [...] t he electric, gas, oil or water [employer] threatened to shut off services in your [...] Description 11/23/2025 9:00 AM EST Medication Management [facility] [address] [place] [address] Lor Goldstein PharmD [address] [place] [address] documented as of this encounter Goals Goal Patient Goal Type Associated Problems Recent Progress Patient-Stated? Author Take your medication every day Lifestyle No Shannan Rojas PharmD documented as of this encounter Visit Diagnoses Not on filedocumented in this encounter Care Teams Prime Minister Relationship Specialty Start Date End Date Cesilia Alston ANP [address] [place] [address] PCP - General Family Medicine 10/24/23 Lor Goldstein PharmD [address] [place] [phone] Pharmacist Internal Medicine 02/15/25 documented as of this encounter
--- OUTSIDE RECORDS SUMMARY | 2025-10-21 17:32 | XMS_ITS | Encounter Summary ---
Author Organization [employer] Address 75 [facility] 7t [place] [address] Care Team Providers Care Tunnel Drier Operator Name Role Phone Cesilia Alston Primary Care Provider [phone] Lor Goldstein PharmD Unavailable [phone] Reason for Visit * Reason Comments Med Refill Encounter Details Date Type Department Care Team ([facility] st Contact Info) Description 12/28/2023 Refill [facility] [address] [place], [place] [phone] Cesilia Alston ANP [address] [place] [address] Type 2 diabetes mellitus with other specified complication, with long-term current use of insulin ([facility]) Social History Tobacco Use Types Packs/Day Years Used Date Smoking Tobacco: Never Assessed Housing Stability Answer Date Recorded What is your housing situation today? I do not have housing (Staying with others, in a hotel, in a custodial, living outside on the street, on a [...] Description 11/23/2025 9:00 AM EST Medication Management [facility] [address] [place] [phone] Lor Goldstein PharmD [address] [place] [address] documented as of this encounter Goals Goal Patient Goal Type Associated Problems Recent Progress Patient-Stated? Author Take your medication every day Lifestyle No Shannan Rojas PharmD documented as of this encounter Visit Diagnoses Diagnosis Type 2 diabetes mellitus with other specified complication, with long-term current use of insulin (HCC) documented in this encounter Care Teams Tunnel Drier Operator Relationship Specialty Start Date End Date Cesilia Alston ANP [address] [place] [phone] PCP - General Family Medicine 10/24/23 Lor Goldstein PharmD [address] [place] [phone] Pharmacist Internal Medicine 02/15/25 documented as of this encounter
--- OUTSIDE RECORDS SUMMARY | 2025-10-21 17:32 | XMS_ITS | Encounter Summary ---
Author Organization [employer] Address 75 [facility] 7t [place] [address] Care Team Providers Care Sales Representative Name Role Phone Cesilia Alston Primary Care Provider [phone] Lor Goldstein PharmD Unavailable [phone] Reason for Visit * Reason Comments Med Refill Encounter Details Date Type Department Care Team ([facility] st Contact Info) Description 01/12/2025 Refill [facility] [address] [place], [place] [phone] Cesilia Alston ANP [address] [place] [address] Cigarette nicotine dependence without complication Social History [...] Description 11/23/2025 9:00 AM EST Medication Management [facility] [address] [place] [address] Lor Goldstein PharmD [address] [place] [address] documented as of this encounter Goals Goal [...] documented as of this encounter Care Teams Sales Representative Relationship Specialty Start Date End Date Cesilia Alston ANP [address] [place] [address] PCP - General Family Medicine 10/24/23 Lor Goldstein PharmD [address] [place] [address] Pharmacist Internal Medicine 02/15/25 documented as of this encounter
--- OUTSIDE RECORDS SUMMARY | 2025-10-21 17:32 | XMS_ITS | Encounter Summary ---
Author Organization [employer] Address 75 [facility] 7 [place] [address] Care Team Providers Care Flight Crew Scheduler Name Role Phone Cesilia Alston Primary Care Provider [phone] Lor Goldstein PharmD Unavailable [phone] Reason for Visit * Reason Onset Date Comments Med Refill 10/19/2025 Encounter Details Date Type Department Care Team ([facility] st Contact Info) Description 10/19/2025 Telephone [facility] [address] [place] [address] Cesilia Alston ANP [address] [place] [address] Med Refill Social History Tobacco Use Types Packs/Day Years [...] encounter Miscellaneous Notes * Telephone Encounter - Adri Ferreira LPN - 10/19/2025 2:43 PM EST Pended to pcp * Telephone Encounter - Odell Simpson - 10/19/2025 2:40 PM EST TC from pt requesting medication refill. Medications needing refill : insulin glargine (Lantus SoloStar) 100 UNIT/ML pen atorvastatin (Lipitor) 80 MG tablet To be sent to: [facility] [place], [place] - [address] [place] [address] documented in this encounter Plan of Treatment Upcoming Encounters Date Type Department Care Team (Late st Contact Info) Description 11/23/2025 9:00 AM EST Medication Management [facility] [address] [place] [address] Lor Goldstein, PharmEverett [address] [place], [place] [phone] documented as of this encounter Goals Goal Patient Goal Type Associated Problems Recent Progress Patient-Stated? Author Take your medication every day Lifestyle No Shannan Rojas PharmD Help patients manage their type 2 diabetes Care Plan Help patients manage their type 2 diabetes No Cesilia Alston ANP Weekly blood pressure task Care Plan Weekly blood pressure task No Cesilia Alston ANP Help patients manage their type 2 diabetes Care Plan Help patients manage their type 2 diabetes No Cesilia Alston ANP Patient has chronic kidney disease Care Plan Patient has chronic kidney disease No Cesilia Alston ANP Weekly blood pressure task Care Plan Weekly blood pressure task No Zelda Mclaughlin RN Patient has chronic kidney disease Care Plan Patient has chronic kidney disease No Zelda Mclaughlin RN Weekly blood pressure task Care Plan [...] Care Plan Weekly blood pressure task No Cesilia Alston ANP Weekly blood pressure task Care Plan Weekly blood pressure task No Cesilia Alston ANP Patient has chronic kidney disease Care Plan Patient has chronic kidney disease No Cesilia Alston ANP Patient has chronic kidney disease Care Plan Patient has chronic kidney disease No Cesilia Alston ANP Weekly blood pressure task Care Plan Weekly blood pressure task No Bucky Coyleessa Weekly blood pressure task Care Plan Weekly blood pressure task No Leonides Ryann Patient has chronic kidney disease Care Plan Patient has chronic kidney disease No Leonides Ryann Patient has chronic kidney disease Care Plan Patient has chronic kidney disease No Leonides, Ryann Weekly blood pressure task Care Plan Weekly blood pressure task No Marcellos-Lor Lynne, PharmD Weekly blood pressure task Care Plan Weekly blood pressure task No Piers-Lynne Felicitassa, PharmD Patient has chronic kidney disease Care Plan Patient has chronic kidney disease No Marcellos-Felicitas Lynnesa, PharmD Patient has chronic kidney disease Care Plan Patient has chronic kidney disease No Lor Goldstein, PharmD Weekly blood pressure task Care Plan Weekly blood pressure task No Odell Simpson Weekly blood pressure task Care Plan Weekly blood pressure task No Odell Simpson Patient has chronic kidney disease Care Plan Patient has chronic kidney disease No Odell Simpson Patient has chronic kidney disease Care Plan Patient has chronic kidney disease Odell Montes Weekly blood pressure task Care Plan Weekly blood pressure task No Adri Ferreira LPN Weekly blood pressure task Care Plan Weekly blood pressure task No Adri Ferreira LPN Patient has chronic kidney disease Care Plan Patient has chronic kidney disease No Adri Ferreira LPN Patient has chronic kidney disease Care Plan Patient has chronic kidney disease No Adri Ferreira LPN documented as of this encounter Visit Diagnoses Not on filedocumented in this encounter Additional Health Concerns Active Problems Noted Date [...] 10/19/2025 Patient has chronic kidney disease 10/19/2025 Assessment Noted Time PHQ-9 Depression Total Score: 7 10/15/20 25 1:14 PM EST documented as of this encounter Care Teams Flight Crew Scheduler Relationship Specialty Start Date End Date Cesilia Alston ANP [address] [place] [address] PCP - General Family Medicine 10/24/23 Lor Goldstein PharmD [address] [place] [address] Pharmacist Internal Medicine 02/15/25 documented as of this encounter
--- OUTSIDE RECORDS SUMMARY | 2025-10-21 17:32 | XMS_ITS | Encounter Summary ---
Author Organization [employer] Address 75 [facility] 7 [place] [address] Care Team Providers Care Plastics Seasoner Operator Name Role Phone Cesilia Alston FAISAL Primary Care Provider [phone] Lor Goldstein PharmD Unavailable [phone] Reason for Visit * Reason Comments Med Refill Encounter Details Date Type Department Care Team ([facility] st Contact Info) Description 10/19/[address] [facility] [address] [place], [place] [phone] Lor Goldstein, PharmD [address] [place] [address] Type 2 diabetes mellitus with hyperlipidemia (HCC) Social History Tobacco Use Types Packs/Day Years [...] with others, in a hotel, in a alf, living outside on the street, on a [...] * Telephone Encounter - FAISAL Hayden - 10/19/2025 5:41 PM EST duplicate documented in this encounter Plan of Treatment Upcoming Encounters Date Type Department Care Team (Late st Contact Info) Description 11/23/2025 9:00 AM EST Medication Management [facility] [address] [place] [address] Lor Goldstein PharmD [address] [place] [address] documented as of this encounter Goals Goal Patient Goal Type Associated Problems Recent Progress Patient-Stated? Author Take your medication every day Lifestyle No Shannan Rojas, RachelD Help patients manage their type 2 diabetes Care Plan Help patients manage their type 2 diabetes Cesilia Vale ANP Weekly blood pressure task Care Plan Weekly blood pressure task Cesilia Vale ANP Help patients manage their type 2 diabetes Care Plan Help patients manage their type 2 diabetes Cesilia Vale ANP Patient has chronic kidney disease Care Plan Patient has chronic kidney disease Cesilia Vale ANP Weekly blood pressure task Care Plan [...] Care Plan Weekly blood pressure task No Ceci Coylea Weekly blood pressure task Care Plan Weekly blood pressure task No Leonides, Ryann Patient has chronic kidney disease Care Plan Patient has chronic kidney disease No Leonides Ryann Patient has chronic kidney disease Care Plan Patient has chronic kidney disease No Leonides Ryann Weekly blood pressure task Care Plan Weekly blood pressure task No Lor Goldstein, PharmD Weekly blood pressure task Care Plan Weekly blood pressure task No Piers-Lynne Lor, PharmD Patient has chronic kidney disease Care Plan Patient has chronic kidney disease No Piers-Lynne Lor, PharmD Patient has chronic kidney disease Care Plan Patient has chronic kidney disease No Marcellos-Felicitas Lynnesa, PharmD Weekly blood pressure task Care Plan [...] Weekly blood pressure task No Adri Ferreira WEAVING INSTRUCTOR Weekly blood pressure task Care Plan Weekly blood pressure task No Adri Ferreira, WEAVING INSTRUCTOR Patient has chronic kidney disease Care Plan Patient has chronic kidney disease No Adri Ferreira, WEAVING INSTRUCTOR Patient has chronic kidney disease Care Plan Patient has chronic kidney disease No Adri Ferreira WEAVING INSTRUCTOR documented as of this encounter Visit Diagnoses Diagnosis Type 2 diabetes mellitus with hyperlipidemia (HCC) documented in this encounter Additional Health Concerns Active [...] Time PHQ-9 Depression Total Score: 7 10/15/20 1:14 PM EST documented as of this encounter Care Teams Plastics Seasoner Operator Relationship Specialty Start Date End Date Cesilia Alston ANP [address] [place] [address] PCP - General Family Medicine 10/24/23 Lor Goldstein PharmD [address] [place] [address] Pharmacist Internal Medicine 02/15/25 documented as of this encounter
--- OUTSIDE RECORDS SUMMARY | 2025-10-21 17:32 | XMS_ITS | Encounter Summary ---
Author Organization [employer] Address 75 [facility] [address] [place] [address] Care Team Providers Care Thermal Technician Name Role Phone Cesilia Alston Primary Care Provider [phone] Lor Goldstein PharmD Unavailable [phone]- [phone] Reason for Visit * Reason Onset Date Comments Discharging Patient 11/06/2023 Encounter Details Date Type Department Care Team ([facility] st Contact Info) Description 11/06/2023 Telephone [facility] MEDICINE [address] [place] [address] Cesilia Alston ANP 230 [place] [address] Discharging Patient Social History Tobacco Use Types [...] and denying services. Please contact Roberto @ [phone] documented in this encounter Plan of Treatment Upcoming Encounters Date Type Department Care Team (Late st Contact Info) Description 11/23/2025 9:00 AM EST Medication Management [facility] MEDICINE [address] [place] [address] Lor Goldstein PharmD [address] [place] [address] documented as of this encounter Visit Diagnoses Not on filedocumented in this encounter Care Teams Thermal Technician Relationship Specialty Start Date End Date Cesilia Alston ANP [address] [place] [address] PCP - General Family Medicine 10/24/23 Lro Goldstein PharmD [address] [place] [phone] Pharmacist Internal Medicine 02/15/25 documented as of this encounter
--- OUTSIDE RECORDS SUMMARY | 2025-10-21 17:32 | XMS_ITS | Encounter Summary ---
Author Organization [employer] Address 75 [facility] 7[address] [place] [address] Care Team Providers Care Electrical Unit Rebuilder Name Role Phone Cesilia Alston FAISAL Primary Care Provider [phone] Lor Goldstein PharmD Unavailable [phone]- [phone] Reason for Visit * Reason Onset Date Comments Unable to run CCA 10/06/2024 Encounter Details Date Type Department Care Team (Late st Contact Info) Description 10/06/2024 Telephone [facility] ADULT DENTAL 230 [place] [address] Ryan Zurita DDS [address] [place] [address] Unable to run CCA Social History Tobacco [...] or post due to website being down. [facility] documented in this encounter Plan of Treatment Upcoming Encounters Date Type Department Care Team (Late st Contact Info) Description 11/23/2025 9:00 AM EST Medication Management [facility] MEDICINE [address] [place] [address] Lor Goldstein PharmD [address] [place] [address] documented as of this encounter Goals Goal Patient Goal Type Associated Problems Recent Progress Patient-Stated? Author Take your medication every day Lifestyle No Shannan Rojas PharmD documented as of this encounter Visit Diagnoses Not on filedocumented in this encounter Care Teams Electrical Unit Rebuilder Relationship Specialty Start Date End Date Cesilia Alston ANP [address] [place] [address] PCP - General Family Medicine 10/24/23 Lor Goldstein PharmD [address] [place] [phone] Pharmacist Internal Medicine 02/15/25 documented as of this encounter
--- OUTSIDE RECORDS SUMMARY | 2025-10-21 17:32 | XMS_ITS | Encounter Summary ---
Author Organization [email or web address] Address 75 [facility] 7t [place] [address] Care Team Providers Care Labor Relations Specialist Name Role Phone Cesilia Alston FAISAL Primary Care Provider [phone] Lor Goldstein PharmD Unavailable [phone] Encounter Details Date Type Department Care Team (Latest Contact Info) Description 10/19/2025 Travel Social History Tobacco Use Types Packs/Day [...] Description 11/23/2025 9:00 AM EST Medication Management [facility] MEDICINE 230 [place] [address] Lor Goldstein PharmD 230 [place] [address] documented as of this encounter Goals Goal [...] Weekly blood pressure task No Leonides, Ryann Weekly blood pressure task Care Plan Weekly blood pressure task No Leonides Ryann Patient has chronic kidney disease Care Plan Patient has chronic kidney disease No Leonides, Ryann Patient has chronic kidney disease Care Plan Patient has chronic kidney disease No Leonides, Ryann Weekly blood pressure task Care Plan Weekly blood pressure task No Piers-Lynne , Lor, PharmD Weekly blood pressure task Care Plan Weekly blood pressure task No Piers-Lynne , Lor, PharmD Patient has chronic kidney disease Care Plan Patient has chronic kidney disease No Piers-Lynne , Lor, PharmD Patient has chronic kidney disease Care Plan Patient has chronic kidney disease No Piers-Lynne , Lor, PharmD Weekly blood pressure task Care Plan Weekly blood pressure task No Odell Simpson Weekly blood pressure task Care Plan Weekly blood pressure task No Calvin Odell Patient has chronic kidney disease Care Plan Patient has chronic kidney disease No Calvin Odell Patient has chronic kidney disease Care Plan Patient has chronic kidney disease No Odell Simpson Weekly blood pressure task Care Plan Weekly blood pressure task No Adri Ferreira DURAL MECHANIC Weekly blood pressure task Care Plan Weekly blood pressure task No FerreiraRobertga, DURAL MECHANIC Patient has chronic kidney disease Care Plan Patient has chronic kidney disease No Adri Ferreira, DURAL MECHANIC Patient has chronic kidney disease Care Plan Patient has chronic kidney disease No Adri Ferreira DURAL MECHANIC documented as of this encounter Visit Diagnoses [...] documented as of this encounter Care Teams Labor Relations Specialist Relationship Specialty Start Date End Date Cesilia Alston ANP 230 [place] [address] PCP - General Family Medicine 10/24/23 Lor Goldstein, Chandu 230 [place] [address] Pharmacist Internal Medicine 02/15/25 documented as of this encounter
--- OUTSIDE RECORDS SUMMARY | 2025-10-21 17:32 | XMS_ITS | Encounter Summary ---
Author Organization [employer] Address 75 [facility] 7t [place] [address] Care Team Providers Care Mail Processing Machine Operator Name Role Phone Cesilia Alston FAISAL Primary Care Provider [phone] Lor Goldstein PharmD Unavailable [phone] Reason for Visit * Reason Comments Med Refill Encounter Details Date Type Department Care Team ([facility] Contact Info) Description 06/05/2025 Refill [facility] CHC MED & PEDS [address] [place], [place] [phone] Ryann Watson MD [address] [place] [address] Social History Tobacco Use Types Packs/Day Years [...] with others, in a hotel, in a long term, living outside on the street, on a [...] Description 11/23/2025 9:00 AM EST Medication Management [facility] MEDICINE [address] [place] [address] Lor Goldstein PharmD 230 [place] [address] documented as of this encounter Goals Goal Patient Goal Type Associated Problems Recent Progress Patient-Stated? Author Take your medication every day Lifestyle No Shannan Rojas PharmD documented as of this encounter Visit Diagnoses Not on filedocumented in this encounter Additional Health Concerns Assessment Noted Time PHQ-9 Depression Total Score: 0 10/21/20 24 10:30 AM EST documented as of this encounter Care Teams Mail Processing Machine Operator Relationship Specialty Start Date End Date Cesilia Alston ANP [address] [place] [address] PCP - General Family Medicine 10/24/23 Lor Goldstein PharmD [address] [place] [address] Pharmacist Internal Medicine 02/15/25 documented as of this encounter
--- OUTSIDE RECORDS SUMMARY | 2025-10-21 17:32 | XMS_ITS | Encounter Summary ---
Author Organization [employer] Address 75 [facility] 7 [place] [address] Care Team Providers Care Gym Manager Name Role Phone Ritika Marsh MD Primary Care Pro vider Cesilia Alston Primary Care Provider [phone] Lor Goldstein PharmD Unavailable [phone] Reason for Visit * Reason Onset Date Comments Medication Question 10/23/2023 Encounter Details Date Type Department Care Team ([facility] st Contact Info) Description 10/23/2023 Telephone [facility] MEDICINE 230 [place] [address] Ritika Marsh MD 230 [place], [place] [phone] Medication Question Social History Tobacco Use Types [...] them cut down from daily to 3x/week. [facility] wants to let PCP know this. Also, pt told him that he was recently at the EDfor BG >400. He states this is because pt refuses insulin most days. Also concerned about polypharmacy. States pt uses around 5 pharmacies that he has counted. Pt does not have transportation, VNAtries to crop picker scripts but sometimes can't find where they were sent to. I notice trulicity and lantus both sent 10/20 [facility] He states spoke to pt regarding this and is requesting we change pt's main pharmacy [facility] in [place] as it is 5 minutes from pt's home. Will update pt's chart to reflect this. He is also wondering if lantus can be sent as a pen. States pt's eye sight isn't good and he is concerned with him drawing up his own insulin on days he isn't there. Lastly, he is requesting a med list be faxed to [phone]. Will fax. * Telephone Encounter - Roly Hay - 10/23/2023 11:49 AM EST Tc from Scott from [facility] requesting a call back from nurse in regards to insulin. Please contact at [phone] documented in this encounter Plan of Treatment Upcoming Encounters Date Type Department Care Team (Late st Contact Info) Description 11/23/2025 9:00 AM EST Medication Management [facility] MEDICINE [address] [place] [address] Lor Goldstein PharmD [address] [place] [address] documented as of this encounter Visit Diagnoses Not on filedocumented in this encounter Care Teams Gym Manager Relationship Specialty Start Date End Date Ritika Marsh MD [address] [place] [address] [phone] PCP - General Internal Medicine 06/01/23 10/23/23 Cesilia Alston ANP [address] [place] [address] [phone] PCP - General Family Medicine 10/24/23 Lor Goldstein PharmD [address] [place] [address] [phone] Pharmacist Internal Medicine 02/15/25 documented as of this encounter
--- OUTSIDE RECORDS SUMMARY | 2025-10-21 17:32 | XMS_ITS | Encounter Summary ---
Author Organization [employer] Address [address] [place] [address] 7 [place] [address] Care Team Providers Care Ramp And Cargo Supervisor Name Role Phone Philomena Pereira Primary Care Provider Ritika Paulino MD Primary Care Pro vider Cesilia Alston Primary Care Provider [phone] Lor Goldstein PharmD Unavailable Encounter Details Date Type Department Care Team (Late st Contact Info) Description 12/04/2022 Orders Only [facility] CHC MED & PEDS [address] [place] [address] Samantha Cast LPN Social History Tobacco Use [...] Description 11/23/2025 9:00 AM EST Medication Management [facility] MEDICINE 230 [place] [address] Lor Goldstein, PharmD 230 [place] [address] documented as of this encounter Visit Diagnoses Not on filedocumented in this encounter Care Teams Ramp And Cargo Supervisor Relationship Specialty Start Date End Date Philomena Pereira FNP PCP - General Family Medicine 10/16/22 05/31/23 Ritika Marsh MD 230 [place] [address] PCP - General Internal Medicine 06/01/23 10/23/23 Cesilia Alston ANP [address] [place] [address] [phone] PCP - General Family Medicine 10/24/23 Lor Goldstein, Chandu [address] [place] [address] [phone] Pharmacist Internal Medicine 02/15/25 documented as of this encounter
--- OUTSIDE RECORDS SUMMARY | 2025-10-21 17:32 | XMS_ITS | Encounter Summary ---
Author Organization [employer] Address 75 [facility] 7[address] [place] [address] Care Team Providers Care Sample Stitcher Name Role Phone Cesilia Alston Primary Care Provider [phone] Lor Goldstein PharmD Unavailable [phone] Encounter Details Date Type Department Care Team (Late st Contact Info) Description 09/23/2025 Telephone [facility] MEDICINE [address] [place], [place] [phone] Cesilia Alston ANP [address] [place] [address] Social History Tobacco Use Types Packs/Day Years [...] encounter Miscellaneous Notes * Telephone Encounter - Odell Simpson - 09/23/2025 9:49 AM EDT Tc from [place] with [facility] radiology reporting incidental findings from lung screening. They found 2 cm thyroid nodule. Any questions contact timothy at [phone] documented in this encounter Plan of Treatment Upcoming Encounters Date Type Department Care Team ([facility] st Contact Info) Description 11/23/2025 9:00 AM EST Medication Management [facility] MEDICINE [address] [place] [address] Lor Goldstein PharmD [address] [place] [address] documented as of this encounter Goals Goal Patient Goal Type Associated Problems Recent Progress Patient-Stated? Author Take your medication every day Lifestyle No Shannan Rojas, RachelD documented as of this encounter Visit Diagnoses Not on filedocumented in this encounter Additional Health Concerns Assessment Noted Time PHQ-9 Depression Total Score: 0 10/21/20 24 10:30 AM EST documented as of this encounter Care Teams Sample Stitcher Relationship Specialty Start Date End Date Cesilia Alston ANP 230 [place] [address] PCP - General Family Medicine 10/24/23 Lor Goldstein, RachelD [address] [place] [phone] Pharmacist Internal Medicine 02/15/25 documented as of this encounter
--- OUTSIDE RECORDS SUMMARY | 2025-10-21 17:32 | XMS_ITS | Encounter Summary ---
Author Organization [employer] [facility] Address [address] [place] [address] Care Team Providers Care Jig Grinder Set Up Operator Name Role Phone Philomena Pereira Primary Care Provider Ritika Paulino MD Primary Care Pro vider Cesilia Alston Primary Care Provider [phone] Lor Goldstein PharmD Unavailable Encounter Details Date Type Department Care Team (Late st Contact Info) Description 01/08/2023 Abstract [facility] MEDICINE [address] [place] [address] Philomena Pereira FNP Social History Tobacco Use [...] 9:00 AM EST Medication Management [facility] MEDICINE [address] [place], [place] [phone] Lor Goldstein, PharmD 230 [place] [address] documented as of this encounter Visit Diagnoses Not on filedocumented in this encounter Care Teams Jig Grinder Set Up Operator Relationship Specialty Start Date End Date Philomena Pereira FNP PCP - General Family Medicine 10/16/22 05/31/23 Ritika Marsh MD 230 [place] [address] PCP - General Internal Medicine 06/01/23 10/23/23 Cesilia Alston ANP [address] [place] [address] [phone] PCP - General Family Medicine 10/24/23 Lor Goldstein, Chandu [address] [place] [phone] Pharmacist Internal Medicine 02/15/25 documented as of this encounter
== END 2025-10-21 16:47 | disposition home or self-care (01) ==
PROVIDERS: Emergency Provider Emergency Medicine; PCP Nurse Practitioner Primary Care
DX: M16.11 Unilateral primary osteoarthritis, right hip (principal); E11.40 Type 2 diabetes mellitus with diabetic neuropathy, unspecified; J44.89 Other specified chronic obstructive pulmonary disease
CPT/HCPCS: 96374; 96375; 99284; J0131; J1885

== ENCOUNTER 2025-10-31 08:07 | Emergency (ER) | payer OTHER, SELFPAY ==
[2025-10-31 08:11] VITALS: BP 134/62; PULSE 78; RESP 18; TEMP 36.6; O2SAT 98; BMI 30.5
--- OUTSIDE RECORDS SUMMARY | 2025-10-31 08:27 | XMS_ITS | Clinical Summary ---
Author Organization [facility] Address [address] [place] [address] Phone Care Team Providers Care Senior Test Engineer Name Role Phone Cesilia Alston NP Primary Care Provider [phone] Allergies No known active allergies Medications oxyCODONE (OXY-IR) 5 mg immediate release capsule Take 1 capsule (5 mg total) by mouth every 6 (six) hours if needed for severe pain. Max Daily Amount: 20 mg 15 capsule 10/03/2024 Active Active Problems Problem Noted Date Diagnosed Date Neuropathy Medical History Medical History Date Comments Diabetes mellitus ([facility] V24, [facility] V28) Asthma Neuropathy Social History Tobacco Use [...] LAB CHEMISTRY METHOD 01/10/2025 1:05 PM [facility] Potassium 4.1 3.5 - 5.5 mmol/L LAB CHEMISTRY METHOD 01/10/2025 1:05 PM [facility] Chloride 105 96 - 110 mmol/L LAB CHEMISTRY METHOD 01/10/2025 1:05 PM [facility] CO2 24 21 - 32 mmol/L LAB CHEMISTRY METHOD 01/10/2025 1:05 PM [facility] Anion Gap 6 3 - 11 LAB CHEMISTRY METHOD 01/10/2025 1:05 PM [facility] Glucose 382(H) 70 - 100 mg/dL LAB CHEMISTRY METHOD 01/10/2025 1:05 PM [facility] BUN 14 5 - 25 mg/dL LAB CHEMISTRY METHOD 01/10/2025 1:05 PM [facility] Creatinine 1.19 0.70 - 1.30 mg/dL LAB CHEMISTRY METHOD 01/10/2025 1:05 PM [facility] eGFR 69 >=60 mL/min/1. 73m2 LAB CHEMISTRY METHOD 01/10/2025 1:05 PM [facility] Comment:Calculation based on the Chronic Kidney Disease Epidemiology Collaboration (CKD-EPI) equation refit without adjustment for race. BUN/Creatinine Ratio 11.8 LAB CHEMISTRY METHOD 01/10/2025 1:05 PM [facility] Calcium 8.7 8.5 - 10.5 mg/dL LAB CHEMISTRY METHOD 01/10/2025 1:05 PM [facility] AST (SGOT) 13 10 - 42 unit/L LAB CHEMISTRY METHOD 01/10/2025 1:05 PM [facility] ALT (SGPT) 33 10 - 60 unit/L LAB CHEMISTRY METHOD 01/10/2025 1:05 PM [facility] Alkaline Phosphatase 151(H) 42 - 121 unit/L LAB CHEMISTRY METHOD 01/10/2025 1:05 PM [facility] Total Protein 7.1 6.0 - 8.0 g/dL LAB CHEMISTRY METHOD 01/10/2025 1:05 PM [facility] Albumin 3.9 3.2 - 5.0 g/dL LAB CHEMISTRY METHOD 01/10/2025 1:05 PM [facility] Total Bilirubin 0.7 0.0 - 1.4 mg/dL LAB CHEMISTRY METHOD 01/10/2025 1:05 PM [facility] Blood Venous blood specimen / Unknown Venipuncture / Unknown 01/10/2025 12:12 PM EST 01/10/2025 12:16 PM EST us [facility] BLOOD ORDERABLES Final R esult [facility] [address] [place] [address], from Last 3 Months or Most Recently Relevant to Health Maintenance Insurance [facility] MEDICARE Member Subscriber Plan / Payer (Ef fective 2018-Present) Name:DICK ROSALES Relation to Subscriber:Self Name:Dick Rosales Sr Payer ID:[id number] Group ID:[id number] Type:Not on file Address: [facility] [address] [id number] Care Teams Senior Test Engineer Relationship Specialty Start Date End Date Cesilia Alston NP [address] [place] [address] MIGUEL MANRIQUE [address] PCP - General 10/03/24
--- OUTSIDE RECORDS SUMMARY | 2025-10-31 08:27 | XMS_ITS | Encounter Summary ---
Author Organization [employer] Address 75 [facility] 7t [place] [address] Care Team Providers Care Rn Document Improvement Specialist Name Role Phone AlstonCesilia FAISAL Primary Care Provider [phone] Lor Goldstein PharmD Unavailable [phone]- [phone] Reason for Visit * Reason Onset Date Comments Unable to run CCA 10/06/2024 Encounter Details Date Type Department Care Team (Late st Contact Info) Description 10/06/2024 Telephone [facility] ADULT DENTAL [address] [place] [address] Ryan Zurita DDS [address] [place] [address] Unable to run CCA Social History Tobacco [...] or post due to website being down. [facility] documented in this encounter Plan of Treatment Upcoming Encounters Date Type Department Care Team (Late st Contact Info) Description 11/23/2025 9:00 AM EST Medication Management [facility] MEDICINE [address] [place] [address] Lor Goldstein PharmD [address] [place] [address] documented as of this encounter Goals Goal Patient Goal Type Associated Problems Recent Progress Patient-Stated? Author Take your medication every day Lifestyle No Shannan Rojas PharmD documented as of this encounter Visit Diagnoses Not on filedocumented in this encounter Care Teams Rn Document Improvement Specialist Relationship Specialty Start Date End Date Cesilia Alston ANP [address] [place] [address] PCP - General Family Medicine 10/24/23 Lor Goldstein PharmD [address] [place] [phone] Pharmacist Internal Medicine 02/15/25 documented as of this encounter
--- OUTSIDE RECORDS SUMMARY | 2025-10-31 08:27 | XMS_ITS | Encounter Summary ---
Author Organization [employer] Address [address] [place] [address] 7 [place] [address] Care Team Providers Care Latin American Studies Professor Name Role Phone Philomena Pereira Primary Care Provider Ritika Paulino MD Primary Care Pro vider Cesilia Alston Primary Care Provider [phone] Lor Goldstein PharmD Unavailable Encounter Details Date Type Department Care Team (Late st Contact Info) Description 12/04/2022 Orders Only [facility] CHC MED & PEDS [address] [place] [address] Samantha Cast LPN Social History Tobacco Use [...] 11/23/2025 9:00 AM EST Medication Management [facility] MEDICINE [address] [place] [address] Lor Goldstein, PharmD [address] [place] [address] documented as of this encounter Visit Diagnoses Not on filedocumented in this encounter Care Teams Latin American Studies Professor Relationship Specialty Start Date End Date Philomena Pereira FNP PCP - General Family Medicine 10/16/22 05/31/23 Ritika Marsh MD 230 [place] [address] PCP - General Internal Medicine 06/01/23 10/23/23 Cesilia Alston ANP [address] [place] [address] [phone] PCP - General Family Medicine 10/24/23 Lor Goldstein, Chandu [address] [place] [address] [phone] Pharmacist Internal Medicine 02/15/25 documented as of this encounter
--- OUTSIDE RECORDS SUMMARY | 2025-10-31 08:27 | XMS_ITS | Encounter Summary ---
Author Organization [employer] Address 75 [facility] 7 [place] [address] Care Team Providers Care Occupational Medicine Physician Name Role Phone Ritika Marsh MD Primary Care Pro vider Cesilia Alston Primary Care Provider [phone] Lor Goldstein PharmD Unavailable [phone] Reason for Visit * Reason Onset Date Comments Medication Question 10/23/2023 Encounter Details Date Type Department Care Team ([facility] st Contact Info) Description 10/23/2023 Telephone [facility] MEDICINE [address] [place] [address] Ritika Marsh MD 230 [place], [place] [phone] Medication Question Social History Tobacco Use Types [...] them cut down from daily to 3x/week. [facility] wants to let PCP know this. Also, pt told him that he was recently at the EDfor BG >400. He states this is because pt refuses insulin most days. Also concerned about polypharmacy. States pt uses around 5 pharmacies that he has counted. Pt does not have transportation, VNAtries to pickling operator scripts but sometimes can't find where they were sent to. I notice trulicity and lantus both sent 10/20 were sent [facility] He states spoke to pt regarding this and is requesting we change pt's main pharmacy [facility] [place] as it is 5 minutes from pt's home. Will update pt's chart to reflect this. He is also wondering if lantus can be sent as a pen. States pt's eye sight isn't good and he is concerned with him drawing up his own insulin on days he isn't there. Lastly, he is requesting a med list be faxed to [phone]. Will fax. * Telephone Encounter - Roly Hay - 10/23/2023 11:49 AM EST Tc from [facility] from [facility] requesting a call back from nurse in regards to insulin. Please contact at [phone] documented in this encounter Plan of Treatment Upcoming Encounters Date Type Department Care Team (Late st Contact Info) Description 11/23/2025 9:00 AM EST Medication Management [facility] MEDICINE [address] [place] [phone] Lor Goldstein PharmD [address] [place] [address] documented as of this encounter Visit Diagnoses Not on filedocumented in this encounter Care Teams Occupational Medicine Physician Relationship Specialty Start Date End Date Ritika Marsh MD [address] [place] [address] [phone] PCP - General Internal Medicine 06/01/23 10/23/23 Cesilia Alston ANP [address] [place] [address] [phone] PCP - General Family Medicine 10/24/23 Lor Goldstein PharmD [address] [place] [address] [phone] Pharmacist Internal Medicine 02/15/25 documented as of this encounter
--- OUTSIDE RECORDS SUMMARY | 2025-10-31 08:27 | XMS_ITS | Encounter Summary ---
Author Organization [employer] Address [address] [facility] [address] [place] [address] Care Team Providers Care Boom Supervisor Name Role Phone Cesilia Alston Primary Care Provider [phone] Lor Goldstein PharmD Unavailable [phone] Reason for Visit * Reason Onset Date Comments Discharging Patient 11/06/2023 Encounter Details Date Type Department Care Team ([facility] st Contact Info) Description 11/06/2023 Telephone [facility] [address] [place] [address] Cesilia Alston ANP [address] [place] [address] Discharging Patient Social History Tobacco Use Types Packs/Day Years Used Date Smoking Tobacco: Never Assessed Housing Stability Answer Date Recorded What is your housing situation today? I do not have housing (Staying with others, in a hotel, in a usp, living outside on the street, on a [...] and denying services. Please contact Roberto @ [phone] documented in this encounter Plan of Treatment Upcoming Encounters Date Type Department Care Team (Late st Contact Info) Description 11/23/2025 9:00 AM EST Medication Management [facility] [address] [place] [address] Lor Goldstein PharmD [address] [place] [address] documented as of this encounter Visit Diagnoses Not on filedocumented in this encounter Care Teams Boom Supervisor Relationship Specialty Start Date End Date Cesilia Alston ANP [address] [place] [address] PCP - General Family Medicine 10/24/23 Lor Goldstein PharmD [address] [place] [address] Pharmacist Internal Medicine 02/15/25 documented as of this encounter
--- OUTSIDE RECORDS SUMMARY | 2025-10-31 08:27 | XMS_ITS | Encounter Summary ---
Author Organization [employer] Address [address] [facility] 7 [place] [address] Care Team Providers Care Environmental Health Technologist Name Role Phone Cesilia Alston FAISAL Primary Care Provider [phone] Lor Goldstein PharmD Unavailable [phone] Reason for Visit * Reason Comments Med Refill Encounter Details Date Type Department Care Team ([facility] st Contact Info) Description 06/05/2025 Refill [facility] [address] [place] [address] Ritika Marsh MD [address] [place] [address] Type 2 diabetes mellitus with hyperlipidemia (CMS/HCC) ([facility]/HCC) Social History Tobacco Use Types Packs/Day Years [...] with others, in a hotel, in a chcf, living outside on the street, on a [...] Description 11/23/2025 9:00 AM EST Medication Management [facility] [address] [place] [phone] Lor Goldstein PharmD [address] [place] [address] documented as of this encounter Goals Goal [...] documented as of this encounter Care Teams Environmental Health Technologist Relationship Specialty Start Date End Date Cesilia Alston ANP [address] [place] [phone] PCP - General Family Medicine 10/24/23 Lor Goldstein, RachelD [address] [place] [address] Pharmacist Internal Medicine 02/15/25 documented as of this encounter
--- OUTSIDE RECORDS SUMMARY | 2025-10-31 08:27 | XMS_ITS | Encounter Summary ---
Author Organization [employer] Address [address] [facility] 7t [place] [address] Care Team Providers Care Mud Analysis Supervisor Name Role Phone Cesilia Alston FAISAL Primary Care Provider [phone] Lor Goldstein PharmD Unavailable [phone] Reason for Visit * Reason Comments Med Refill Encounter Details Date Type Department Care Team ([facility] Contact Info) Description 07/25/2024 Refill [facility] [address] [place] [address] Ryann Watson MD [address] [place] [address] Social History Tobacco Use Types Packs/Day Years [...] t he electric, gas, oil or water [employer] threatened to shut off services in your [...] Description 11/23/2025 9:00 AM EST Medication Management [facility] [address] [place] [address] Lor Goldstein PharmD [address] [place] [address] documented as of this encounter Goals Goal Patient Goal Type Associated Problems Recent Progress Patient-Stated? Author Take your medication every day Lifestyle No Shannan Rojas PharmD documented as of this encounter Visit Diagnoses Not on filedocumented in this encounter Care Teams Mud Analysis Supervisor Relationship Specialty Start Date End Date Cesilia Alston ANP [address] [place] [address] PCP - General Family Medicine 10/24/23 Lor Goldstein PharmD [address] [place] [address] Pharmacist Internal Medicine 02/15/25 documented as of this encounter
--- OUTSIDE RECORDS SUMMARY | 2025-10-31 08:27 | XMS_ITS | Encounter Summary ---
Author Organization [employer] Address [address] [facility] 7t [place] [address] Care Team Providers Care Assembler Motor Vehicle Name Role Phone Cesilia Alston Primary Care Provider [phone] Lor Goldstein PharmD Unavailable [phone] Reason for Visit * Reason Comments Med Refill Encounter Details Date Type Department Care Team ([facility] st Contact Info) Description 12/28/2023 Refill [facility] [address] [place], [place] [phone] Cesilia Alston ANP [address] [place] [address] Type 2 diabetes mellitus with other specified complication, with long-term current use of insulin ([facility]) Social History Tobacco Use Types Packs/Day Years Used Date Smoking Tobacco: Never Assessed Housing Stability Answer Date Recorded What is your housing situation today? I do not have housing (Staying with others, in a hotel, in a retirement, living outside on the street, on a [...] Medication Management [facility] [address] [place] [phone] Lor Goldstein PharmD [address] [place] [address] documented as of this encounter Goals Goal Patient Goal Type Associated Problems Recent Progress Patient-Stated? Author Take your medication every day Lifestyle No Shannan Rojas PharmD documented as of this encounter Visit Diagnoses Diagnosis Type 2 diabetes mellitus with other specified complication, with long-term current use of insulin (HCC) documented in this encounter Care Teams Assembler Motor Vehicle Relationship Specialty Start Date End Date Cesilia Alston ANP [address] [place] [address] PCP - General Family Medicine 10/24/23 Lor Goldstein PharmD [address] [place] [address] Pharmacist Internal Medicine 02/15/25 documented as of this encounter
--- OUTSIDE RECORDS SUMMARY | 2025-10-31 08:27 | XMS_ITS | Encounter Summary ---
Author Organization [facility] Address [address] [place] [address] Care Team Providers Care Statistical Engineer Name Role Phone Philomena Pereira Primary Care Provider Ritika Paulino MD Primary Care Pro vider Cesilia Alston Primary Care Provider [phone] Lor Goldstein PharmD Unavailable Encounter Details Date Type Department Care Team (Late st Contact Info) Description 01/08/2023 Abstract [facility] [address] [place] [address] Philomena Pereira FNP Social History Tobacco Use [...] Description 11/23/2025 9:00 AM EST Medication Management [facility] [address] [place], [place] [phone] Lor Goldstein, PharmD [address] [place] [address] documented as of this encounter Visit Diagnoses Not on filedocumented in this encounter Care Teams Statistical Engineer Relationship Specialty Start Date End Date Philomena Pereira FNP PCP - General Family Medicine 10/16/22 05/31/23 Ritika Marsh MD [address] [place] [address] PCP - General Internal Medicine 06/01/23 10/23/23 Cesilia Alston ANP [address] [place] [address] [id number] PCP - General Family Medicine 10/24/23 Lor Goldstein, Chandu [address] [place] [address] Pharmacist Internal Medicine 02/15/25 documented as of this encounter
--- OUTSIDE RECORDS SUMMARY | 2025-10-31 08:27 | XMS_ITS | Encounter Summary ---
Author Organization [employer] Address [address] [facility] [address] [place] [address] Care Team Providers Care Merchandising Assistant Name Role Phone Cesilia Alston Primary Care Provider [phone] Lor Goldstein PharmD Unavailable [phone] Encounter Details Date Type Department Care Team (Late st Contact Info) Description 09/23/2025 Telephone [facility] [address] [place], [place] [phone] Cesilia Alston ANP [address] [place] [address] Social History Tobacco Use Types Packs/Day Years [...] - 09/23/2025 9:49 AM EDT Tc from [place] with [facility] radiology reporting incidental findings from lung screening. They found 2 cm thyroid nodule. Any questions contact timothy at [phone] documented in this encounter Plan of Treatment Upcoming Encounters Date Type Department Care Team ([facility] st Contact Info) Description 11/23/2025 9:00 AM EST Medication Management [facility] [address] [place] [address] Lor Goldstein PharmD [address] [place] [address] documented as of this encounter [...] documented as of this encounter Care Teams Merchandising Assistant Relationship Specialty Start Date End Date Cesilia Alston ANP [address] [place] [address] PCP - General Family Medicine 10/24/23 Lor Goldstein, RachelD [address] [place] [phone] Pharmacist Internal Medicine 02/15/25 documented as of this encounter
--- OUTSIDE RECORDS SUMMARY | 2025-10-31 08:27 | XMS_ITS | Encounter Summary ---
Author Organization [employer] Address [address] [facility] 7t [place] [address] Care Team Providers Care Marine Cargo Inspector Name Role Phone Cesilia Alston Primary Care Provider [phone] Lor Goldstein PharmD Unavailable [phone] Reason for Visit * Reason Comments Med Refill Encounter Details Date Type Department Care Team ([facility] st Contact Info) Description 01/12/2025 Refill [facility] [address] [place], [place] [phone] Cesilia Alston ANP [address] [place] [address] Cigarette nicotine dependence without complication Social History [...] Description 11/23/2025 9:00 AM EST Medication Management [facility] [address] [place] [address] Lor Glodstein PharmD [address] [place] [address] documented as of this encounter Goals Goal [...] documented as of this encounter Care Teams Marine Cargo Inspector Relationship Specialty Start Date End Date Cesilia Alston ANP [address] [place] [address] PCP - General Family Medicine 10/24/23 Lor Goldstein PharmD [address] [place] [address] Pharmacist Internal Medicine 02/15/25 documented as of this encounter
--- OUTSIDE RECORDS SUMMARY | 2025-10-31 08:27 | XMS_ITS | Encounter Summary ---
Author Organization [employer] Address [address] [facility] 7t [place] [address] Care Team Providers Care Drawing Machine Operator Name Role Phone Cesilia Alston FAISAL Primary Care Provider [phone] Lor Goldstein PharmD Unavailable [phone] Reason for Visit * Reason Comments Med Refill Encounter Details Date Type Department Care Team ([facility] Contact Info) Description 06/05/2025 Refill [facility]EDS [address] [place], [place] [phone] Ryann Watson MD [address] [place] [address] Social History Tobacco Use Types Packs/Day Years [...] Description 11/23/2025 9:00 AM EST Medication Management [facility] [address] [place] [address] Lor Goldstein PharmD [address] [place] [address] documented as of this encounter Goals Goal Patient Goal Type Associated Problems Recent Progress Patient-Stated? Author Take your medication every day Lifestyle No Shannan Rojas PharmD documented as of this encounter Visit Diagnoses Not on filedocumented in this encounter Additional Health Concerns Assessment Noted Time PHQ-9 Depression Total Score: 0 10/21/20 24 10:30 AM EST documented as of this encounter Care Teams Drawing Machine Operator Relationship Specialty Start Date End Date Cesilia Alston ANP [address] [place] [phone] PCP - General Family Medicine 10/24/23 Lor Goldstein PharmD [address] [place] [phone] Pharmacist Internal Medicine 02/15/25 documented as of this encounter
--- OUTSIDE RECORDS SUMMARY | 2025-10-31 08:27 | XMS_ITS | Clinical Summary ---
Author Organization [employer] Address [address] [place] [address] 7[address] [place] [address] Care Team Providers Care Brass Pickler Name Role Phone Naila Kerr FAISAL Primary Care Provider [phone] Lor Goldstein PharmD Unavailable [phone]- [phone] Allergies No known active allergies Medications * [...] check BG 100 each Active Continuous Glucose [employer] Department Chair (FreeStyle [place] 3 [place]) deviceIndication s:Type 2 diabetes mellitus with hyperlipidemia [...] 2025 Active Blood Glucose Monitoring Suppl (FreeStyle [place] Lite) w/Device kitIndications:T ype 2 diabetes mellitus [...] mg in pm +cymbalta 60 mg BID -mirror installer seen > 1- 2 years -referred today -may benefit from orthopedic shoes -pt reports f w neurologist -advised to f w specialist as well -pt requesting RW for severe neuropathy-requested today to nursing staff development coordinator Foot pain, bilateral 05/23/2024 Non compliance w [...] Type Department Care Team Description 10/19/[address] [address] Naila Kerr ANP Med Refill 10/19/[address] [address] Lor Goldstein, PharmD Type 2 diabetes mellitus with hyperlipidemia (HCC) 10/19/2025 Travel 10/15/2025 1:00 PM EST Office Visit [address] [address] Naila Kerr ANP Thyroid nodule greater than or equal to 1.5 cm in diameter incidentally noted on imaging study (Primary Dx); Type 2 diabetes mellitus with hyperlipidemia (HCC); Constipation, unspecified constipation type; Screening for malignant neoplasm of colon; Acute right hip pain; Chronic hip pain, bilateral 10/15/2025 Travel 10/14/[address] [address] Naila Kerr ANP chart prep 10/09/2025 Travel 09/28/2025 Results Follow-Up [address] [address] Lung Screening Low dose, US Thyroid 09/23/[address] [address] Naila Kerr ANP 09/18/2025 Orders Only [address] [address] Berry Choi MD Type 2 diabetes mellitus with hyperlipidemia (HCC) (Primary Dx) 09/16/[address] [address] Lor Goldstein, Chandu 09/02/2025 Orders Only [facility] External Provider, [facility] 08/25/[address] [address] Naila Kerr ANP 08/20/2025 2:40 PM EDT Office Visit [facility] [address] [place] [phone] Tamela Lopez MD Chronic hip pain, bilateral (Primary Dx); Acute right hip pain; Osteoarthritis of both hips, unspecified osteoarthritis type 08/20/2025 Travel 08/17/2025 Telephone [facility] [address] [place] [address] Lor Goldstein, PharmD 08/10/2025 Telephone [facility] [address] [place] [address] Naila Kerr ANP nov recall 08/03/2025 Results Follow-Up [facility] [address] [place] [address] Naila Kerr ANP Lipid Panel, Standard, Comprehensive Metabolic Panel from Last 3 Months Immunizations Immunization Administration [...] 11/23/2025 9:00 AM EST Medication Management [facility] [address] [place], [place] [phone] Lor Goldstein, PharmD [address] [place], [place] [phone] Health Maintenance Due Date Last Done Comments [...] (2 of 2) 02/18/2024 12/24/2023 COVID-19 Vaccine ( season) 2025 04/28/2021, 03/31/2021 Influenza Vaccine (#1) [...] Plan Weekly blood pressure task No Naila Krer ANP Patient has chronic kidney disease Care Plan Patient has chronic kidney disease No Naila Kerr ANP Patient has chronic kidney disease Care Plan Patient has chronic kidney disease No Naila Kerr ANP Weekly blood pressure task Care Plan Weekly blood pressure task No Ryann Coyle Weekly blood pressure task Care Plan Weekly blood pressure task No Ryann Coyle Patient has chronic kidney disease Care Plan Patient has chronic kidney disease No Ryann Coyle Patient has chronic kidney disease Care Plan Patient has chronic kidney disease No Ryann Coyle Weekly blood pressure task Care Plan Weekly blood pressure task No Tracie-Lor Lynne, PharmD Weekly blood pressure task Care Plan Weekly blood pressure task No Piers-Lynne Felicitassa, PharmD Patient has chronic kidney disease Care Plan Patient has chronic kidney disease No Tracie-Felicitas Lynnesa, PharmD Patient has chronic kidney disease Care Plan Patient has chronic kidney disease No Marcellos-Lynne Felicitassa, PharmD Weekly blood pressure task Care Plan Weekly blood pressure task No Simpson, Odell Weekly blood pressure task Care Plan Weekly blood pressure task No Simpson, Odell Patient has chronic kidney disease Care Plan Patient has chronic kidney disease No Simpson, Odell Patient has chronic kidney disease Care Plan Patient has chronic kidney disease No Simpson, Odell Weekly blood pressure task Care Plan Weekly blood pressure task No Ferreira, Adri, MINE SURVEYOR Weekly blood pressure task Care Plan Weekly blood pressure task No Ferreira, Adri, MINE SURVEYOR Patient has chronic kidney disease Care Plan Patient has chronic kidney disease No Ferreira, Adri, MINE SURVEYOR Patient has chronic kidney disease Care Plan Patient has chronic kidney disease No Ferreira, Adri, MINE SURVEYOR Procedures Procedure Name Priority Date/Time Associated Diagnosis [...] POCT Hgb A1c (10/15/2025 1:15 PM EST) Hemoglobin A1C 7.7(A) 4.0 - 5.7 % QC Media Lot # [id number] Lot# Expiration Date , Blood 10/15/2025 1:15 PM EST us Naila MALONE POINT OF CARE TEST ENTER/EDIT OR DERABLES Final Result * POCT Glucose (10/15/2025 1:13 PM EST) Glucose Blood, POC 153 60 - 200 mg/dL QC Media Lot # [id number] Lot# Expiration Date , Blood Capillary blood specimen / Unknown 10/15/2025 1:13 PM EST us Naila MALONE POINT OF CARE TEST ENTER/EDIT OR DERABLES Final Result * US Thyroid (10/12/2025 2:57 PM EST) Anatomical Region Laterality Modality Head, Neck Ultrasound 10/12/2025 2:57 PM EST Narrative 10/12/2025 3:42 PM EST [address] [address] Ultrasound Report Signed Patient: Dick Rosales MR#: [id number] 3 : 1960 Acct:[id number] Age/Sex: 64 / M ADM Date: 10/12/25 Loc: .US Attending Dr: Naila Kerr NP Ordering Physician: NAILA KERR NP Date of Service: 10/12/25 Procedure(s): US thyroid Accession Number(s): [id number] cc: NAILA KERR NP Reason for Exam: [...] than or equal to 1 cm: 1. Psychiatric Aide nodules are described as follows: 1. Location: [...] by: Ranjith Rai MD 10/12/2025 03:40 PM [facility] Dictated By: Ranjith Meade MD Signed By: <Electronically signed by Ranjith Brown MD in OV> 10/12/25 1540 DD/ 1457 TD/TT: 10/12/25 1520 Topographical Engineer: Procedure Note Donotuseinterpreter, Image - 10/12/2025 [place] [address] Ultrasound Report Signed Patient: Dick Rosales [facility]#: [id number] 3 : 2Acct:[id number] Age/Sex: 64 / MADM Date: 10/12/25 Loc: HO.US Attending Dr: Naila Kerr NP Ordering Physician: NAILA KERR NP Date of Service: 10/12/25 Procedure(s): US thyroid Accession Number(s): [id number] cc: NAILA KERR NP Reason for Exam: [...] than or equal to 1 cm: 1. Psychiatric Aide nodules are described as follows: 1. Location: [...] Ranjith Rai MD 10/12/2025 03:40 PM EST RP Dictated By: Ranjith Meade MD Signed By: <Electronically signed by Ranjith Brown MDin OV> 10/12/25 1540 DD/ 1457 TD/TT: 10/12/25 1520 Topographical Engineer: us Naila Kerr ANP IMG US PROCEDURES Final Result * CT Lung Screening Low dose (09/02/2025 2:47 PM EDT) Anatomical Region Laterality Modality Lung Computed Tomogra phy 09/02/2025 2:47 PM EDT Narrative 09/02/2025 3:11 PM EDT [place] [address] CT Scan Report Signed Patient: Dick Rosales MR#: [id number] 3 : 1960 Acct:[id number] Age/Sex: 64 / M ADM Date: 09/02/25 Loc: .CT Attending Dr: Rosalina Araiza PA-C Ordering Physician: Rosalina Araiza PA-C Date of Service: 09/02/25 Procedure(s): CT lung screening Accession Number(s): [id number] cc: Rosalina Araiza PA-C; NAILA KERR NP Report Number: [id number]: Total DLP = 86.00 mGy-cm Reason for [...] Cali Benitez MD 09/02/2025 03:08 PM EDT Dictated By: Cali Benitez MD Signed By: <Electronically signed by Cali Benitez MD in OV> 09/02/25 1508 DD/ 1447 TD/TT: 09/02/25 1456 Topographical Engineer: Procedure Note Donotuseinterpreter, Image - 09/02/[address] [address] [address] Scan Report Signed Patient: Dick Rosales [facility]#: [id number] 3 : 2Acct:[id number] Age/Sex: 64 / MADM Date: 09/02/25 Loc: HO.CT Attending Dr: Rosalina Araiza PA-C Ordering Physician: Rosalina Araiza PA-C Date of Service: 09/02/25 Procedure(s): CT lung screening Accession Number(s): [id number] cc: Rosalina Araiza PA-C; NAILA KERR NP Report Number: [id number]: Total DLP = 86.00 mGy-cm Reason for [...] Cali Benitez MD 09/02/2025 03:08 PM EDT Dictated By: Cali Benitez MD Signed By: <Electronically signed by Cali Benitez MD in OV> 09/02/25 1508 DD/ 1447 TD/TT: 09/02/25 1456 Topographical Engineer: us [facility] External Provider IMG CT PROCEDURES Final Result * (ABNORMAL) Lipid Panel, Standard (08/03/2025 8:13 AM EDT) Triglycerides 248(H) <150 mg/dL [facility] Comment:Desirable Triglyceri de: less than 150 mg/dLBorderline High Triglyceride 150-199 mg/dLHigh Triglyceride: 200-499 mg/dLVery High Triglyceride: greater than or equal to 5OO mg/dL Cholesterol 251(H) <200 mg/dL [facility] Comment:Desirable Cholestero l: less than 200 mg/dLBorderline High Cholesterol: 200-239 mg/dLHigh Cholesterol: greater than 239 mg/dL LDL Cholesterol Calculated 154(H) <100 mg/dL [facility] Comment:Desirable LDL: less than 100 mg/dLNear Optimal/Above Optimal LDL: 110- 129 mg/dLBorderline High LDL: 130-159 mg/dLHigh LDL: 160-189 mg/dLVery High LDL: greater than or equal to 190 mg/dL HDL Cholesterol 48 >40 mg/dL [facility] Comment:Desirable HDL: great er than 40 mg/dL Note: This HDL assay may give artificially low results in patients with liver disease. Blood Venous blood specimen / Unknown 08/03/2025 8:13 AM EDT 08/03/2025 11:16 AM EDT [facility] LAB BLOOD ORDERABLES Final Resul t [facility] [address] [place] [address] [phone] * (ABNORMAL) Comprehensive Metabolic Panel (08/03/2025 8:13 AM EDT) Sodium 141 135 - 145 mmol/L [facility] Potassium 4.0 3.3 - 5.1 mmol/L [facility] Chloride 109(H) 96 - 108 mmol/L [facility] Carbon Dioxide 24 22 - 29 mmol/L [facility] Anion Gap 12 12 - 20 [facility] Urea Nitrogen (BUN) 16 9 - 16 mg/dL [facility] Creatinine, Serum 0.92 0.5 - 1.4 mg/dL [facility] Estimated Glomerular Filt Rate >60 [facility] Comment:Chronic Kidney Disea se: Estimated GFR < 60 mL/min/1.16c3Gfcliv Kidney Disease: Estimated GFR < 15 mL/min/1.73m2 Glucose 222(H) 60 - 115 mg/dL [facility] Calcium 9.3 8.4 - 10.2 mg/dL [facility] Bilirubin, Total 0.5 0.0 - 1.0 mg/dL [facility] Aspartate Amino Transferase 17 5 - 37 U/L [facility] Alanine Aminotransferase 23 0 - 40 U/L [facility] Total Protein 6.8 6.5 - 8.0 g/dL [facility] Albumin Level 4.3 3.5 - 5.0 g/dL [facility] Alkaline Phosphatase 107 39 - 117 U/L [facility] Blood Venous blood specimen / Unknown 08/03/2025 8:13 AM EDT 08/03/2025 11:16 AM EDT [facility] LAB BLOOD ORDERABLES Final Resul t [facility] [address] [place] [address] [phone] * HIV AB/AG (01/26/2020 11:06 AM [...] of detection of this assay. [facility] HIV Ag/Ab Combo assay result and supplemental assay results should be interpreted in conjunction with the patient's clinical presentation, history and other laboratory results. If the results are inconsistent with clinical evidence, additional testing is suggested to confirm the result. 01/26/2020 11:0 6 AM EST Cy Ruano MD HISTORICAL/NON ORDERABLE LAB S Final Result Performing Organization Address [facility] de Phone Number [facility] [address] * MICROALBUMIN, RANDOM (01/26/2020 11:05 AM [...] LAB S Final Result Performing Organization Address [facility] de Phone Number [facility] [address] from Last 3 Months or Most [...] Patient has chronic kidney disease 10/19/2025 Insurance [facility] < [address] [place] [address] Care Teams Brass Pickler Relationship Specialty Start Date End Date Naila Kerr ANP [address] [place] [phone] PCP - General Family Medicine 10/24/23 Lor Goldstein PharmD [address] [place] [phone] Pharmacist Internal Medicine 02/15/25
--- NOTE | 2025-10-31 08:32 | ED.GENADULT ---
HPI - General Adult General Chief complaint: Extremity Injury, Lower Stated complaint: arthritis in hip Time Seen by Provider: 10/31/25 08:25 Source: patient and RN notes reviewed Mode of arrival: ambulatory Limitations: no limitations History of Present Illness ED Provider: Mirlande Mcginnis PA-C HPI narrative: 64-year-old male with pmhx significant for osteoarthritis, depression, anxiety, T2DM, neuropathy, GERD, asthma/COPD, sarcoidosis, bipolar 2 disorder presents to the ED due to 2 weeks of acute on chronic right hip pain. Patient reports that he occasionally gets flare-ups, states that he was previously was seen in the emergency room who was discharged on Toradol and Tylenol which has not been helpful for his pain. He does have physical therapy next week. He has not followed up with an orthopedist as of yet. He does not have a appointment with them as of yet. He denies any new trauma or injury. denies any fevers or chills. No other complaints or concerns at this time. MD complaint: Right hip pain Onset (ago): week(s) Radiation: non-radiation Pain Consistency: constant Relieving factors: none Exacerbating factors: none Associated symptoms: denies other symptoms Treatments prior to arrival: none Related Data Home Medications ?Medication ?Instructions ?Recorded ?Confirmed clonazepam 0.5 mg tablet 0.5 mg PO DAILY PRN 10/13/22 dulaglutide 0.75 mg/0.5 mL mg subcut 10/13/22 subcutaneous pen injector (Trulicity) CPAP (CPAP Machine/Device) 04/13/23 dulaglutide 1.5 mg/0.5 mL mg subcut 05/19/24 subcutaneous pen injector (Trulicity) buspirone 10 mg tablet 10 mg PO TID 02/06/25 Previous Rx's ?Medication ?Instructions ?Recorded insulin glargine 100 unit/mL 20 unit (0.2 mL) subcut BEDTIME 06/22/22 subcutaneous solution (Lantus #10 mL U-100 Insulin) prazosin 5 mg capsule 5 mg PO DAILY #30 caps 06/22/22 prazosin 5 mg capsule 10 mg PO BEDTIME #60 caps 06/22/22 blood sugar diagnostic #10 ea 07/21/22 duloxetine 30 mg capsule,delayed 90 mg (3 x 30 mg) PO BEDTIME #90 07/21/22 release caps gabapentin 600 mg tablet 600 mg PO TID #90 tabs 07/21/22 insulin syringe-needle U-100 1 mL #100 ea 07/21/22 29 gauge x 1/2 (Insulin Syringe) lancets 33 gauge #100 ea 07/21/22 quetiapine 200 mg tablet 200 mg PO BEDTIME #30 tabs 07/21/22 quetiapine 50 mg tablet 50 mg PO BID@0800,1400 #60 tabs 07/21/22 cyclobenzaprine 10 mg tablet 10 mg PO BEDTIME PRN muscle spasm 08/04/22 #7 tabs insulin glargine 100 unit/mL (3 24 unit (0.24 mL) subcut QAM #15 mL 08/04/22 mL) subcutaneous pen (Lantus Solostar U-100 Insulin) meloxicam 15 mg tablet 15 mg PO DAILY 30 days #30 tabs 01/09/24 bisacodyl 5 mg tablet,delayed 20 mg (4 x 5 mg) PO ONCE 1 day #4 10/21/24 release (Dulcolax (bisacodyl)) tabs polyethylene glycol 3350 17 238 g PO ONCE 1 day #238 grams 10/21/24 gram/dose oral powder (Miralax) naproxen 500 mg tablet 500 mg PO Q12H PRN pain (scale 05/20/25 score 1-3) #20 tabs albuterol sulfate 2.5 mg/3 mL 2.5 mg (3 mL) inhalation BID 30 06/05/25 (0.083 %) solution for nebulization days #180 mL albuterol sulfate 90 mcg/actuation 2 puff inhalation Q4H PRN 06/05/25 aerosol inhaler (Ventolin HFA) bronchospasm #6.7 grams fluticasone fur. 100 mcg-umeclid 1 inh inhalation DAILY 30 days #60 06/05/25 62.5 mcg-vilant 25 mcg ea inhalat.powder (Trelegy Ellipta) ketorolac 10 mg tablet 10 mg PO Q8H PRN pain 3 days #9 10/21/25 tabs acetaminophen 500 mg tablet 1,000 mg (2 x 500 mg) PO Q8H PRN 10/31/25 (Tylenol Extra Strength) pain #30 tabs lidocaine 5 % topical patch 1 patch topical DAILY #30 ea 10/31/25 morphine 15 mg immediate release 15 mg PO Q6H PRN severe pain 10/31/25 tablet (scale score 7-10) #7 tabs naproxen 500 mg tablet 500 mg PO BID PRN pain #30 tabs 10/31/25 Allergies Allergy/AdvReac Type Severity Reaction Status Date / Time No Known Allergies Allergy Verified 10/31/25 08:12 Review of Systems Review of Systems: Constitutional : No Fever, No Chills ENT/Mouth : No sore throat, No Rhinorrhea Eyes: No Eye Pain, No Swelling, No Redness Cardiovascular : No Chest Pain, No SOB Respiratory : No Cough, No Sputum Gastrointestinal : No Nausea, No Vomiting, No Diarrhea, No abdominal Pain Genitourinary : No Dysuria, No Hematuria Musculoskeletal : + joint pain, No Myalgias, No Joint Swelling Skin : No Skin Lesions Neuro : No Weakness, No Numbness, No Headache All other systems reviewed and are negative Yes all other systems are reviewed and are negative Constitutional: Constitutional: Reports as per [facility] Past Medical History Medical History Tubular adenoma of colon Nicotine dependence, cigarettes, uncomplicated Thyroid nodule Pulmonary nodules Bronchopneumonia Post traumatic stress disorder (PTSD) Bipolar II disorder Hallucination, visual Chronic bronchitis with wheezing Asthma-COPD overlap syndrome Pneumonitis Hyperhidrosis Back pain Diabetes Neuropathy Anxiety PTSD (post-traumatic stress disorder) Depression Gout Sarcoidosis GERD (gastroesophageal reflux disease) Surgical History History of colonoscopy History of bronchoscopy Family History Family History Father Myocardial infarction Mother No problems noted. Social History Social History Household Members: None Housing: House Housing Other:: rent Do you presently have visiting nurse or other home services: Yes Alcohol intake: current Alcohol intake frequency: holidays/special occasions only Patient Tobacco Use Status: Current everyday Tobacco user Tobacco use type: Cigarette Cigarette Packs Per Day: 1 Cigarettes Per Day: 7 Years Smoked: 52, prior 2 ppd smoker since age of 10 Smoked in Last 30 Days: No e-Cigarette/Vaping Use: Never Used Second Hand Smoke Exposure: Yes Use of substances other than those prescribed or required for medical reasons: No Substance Use Type: Marijuana Advance Directives: No Advance Directives Information Provided: No Do you have a plan to hurt others: No Plan service: No Sexual orientation: Straight/Heterosexual Physical Exam ED Exam Exam: General: Awake, alert, and oriented X3. No acute distress. HEENT: Normal inspection CVS: Normal heart rate and rhythm. Pulses normal. Respiratory: No respiratory distress Skin: Warm, dry, no rashes noted to exposed skin. Normal skin color. Normal skin turgor. Extremities: anterior and posterior right hip with tenderness palpation diffusely. Patient ambulatory with steady gait. Leg is well perfused. No pitting edema. No leg or calf pain. Neuro: Oriented X 3. No motor deficit. No sensory deficit. Vital Signs: Vital Signs - 24 hr 10/31/25 08:11 10/31/25 10:14 Temperature 97.8 F 97.8 F Pulse Rate 78 78 Respiratory Rate 18 18 Blood Pressure 134/62 134/62 Pulse Oximetry 98 98 Oxygen Delivery Method Room Air Room Air BMI result Body Mass Index 30.5 Medications Administered Discontinued Medications Generic Name Dose Route Start Last Admin Trade Name Freq PRN Reason Stop Dose Admin Ketorolac Tromethamine 15 mg 10/31/25 08:46 10/31/25 08:55 Ketorolac Tromethamine 15 Mg/Ml Vial IM 10/31/25 08:47 15 mg ONCE ONE Administration Lidocaine 1 patch 10/31/25 08:46 10/31/25 08:55 Lidocaine 4 % Patch Adh..Patch TRANSDERMA 10/31/25 08:47 1 patch ONCE ONE Administration Protocol Morphine Sulfate 15 mg 10/31/25 08:46 10/31/25 08:55 Morphine Sulfate Immed Release 15 Mg Tablet PO 10/31/25 08:47 15 mg ONCE ONE Administration Medical Decision Making Medical Decision Making MDM Narrative: This is a 64-year-old male, with a past medical history of chronic right hip pain, who presents emergency department with concerns of acute on chronic right hip pain. On arrival, vital signs within normal limits. He is ambulatory with steady gait. He has been seen here previously for similar pain. He has tried Toradol without any relief. He took Tylenol this morning which provided him without relief. No new trauma or injury therefore deferring images at this time. He has not followed up with the nuisance wildlife specialist. Will medicate with dose of Toradol as well as oral morphine and lidocaine patch. 10:58 AM 10/31/2025 (Mirlande Mcginnis PA-C): Patient feeling much better, he has a ride home. She discussed with patient that I want him to continue taking naproxen, Tylenol, and lidocaine patches. Given short prescription of morphine to only be used as needed for severe pain only. Given risk for this is benefits of starting on a narcotic pain medication. discussed with patient that we can not refill this medication, and has adverse side effects. He understands the risks and consequences. Will move for with short prescription. Patient understands and agrees with plan. Given strict return precautions. Patient stable for discharge. Differential Diagnosis Differential Diagnoses: The differential diagnosis associated with the presentation includes Differential diagnoses including osteoarthritis, hip sprain, strain, contusion, fracture -unlikely given no recent trauma Discharge Plan Discharge Clinical Impression: Chronic pain of right hip Patient Disposition: Home, Self-Care Instructions: Pain Management (ED), Opioid Safety (ED), Hip Pain (ED) Additional Instructions: You were seen in the emergency department due to chronic hip pain. Please follow-up with your physical therapist as scheduled. I am also urging you to follow-up with the nuisance wildlife specialist, call on Sunday to make an appointment. Continue taking Tylenol as prescribed. You may take naproxen with this medication as well to help with pain and inflammation. If you utilize both of these medications however still have severe pain, you may take morphine. Please be advised that this is a strong narcotic pain medication and can be addictive. Only reserved for severe pain only. You can not have this medication refilled through the emergency room. Do not drink or drive while taking this medication. Moist heat can also provide you with good relief. Do not apply heat or ice directly to lidocaine patches as this can cause thermal zaldivar. If any new or worsening symptoms occur including but not limited to numbness or tingling into your groin, loss of bladder or bowel control, please seek emergent care. Prescriptions: New morphine 15 mg tablet 15 mg PO Q6H PRN (Reason: severe pain (scale score 7-10)) Qty: 7 0RF Rx Instructions: Partial Fill upon patient request. acetaminophen [Tylenol Extra Strength] 500 mg tablet 1,000 mg PO Q8H PRN (Reason: pain) Qty: 30 0RF naproxen 500 mg tablet 500 mg PO BID PRN (Reason: pain) Qty: 30 0RF lidocaine 5 % adhesive patch,medicated 1 patch topical DAILY Qty: 30 0RF Rx Instructions: leave on most painful area for up to 12 hrs No Action bisacodyl [Dulcolax (bisacodyl)] 5 mg tablet,delayed release (DR/EC) 20 mg PO ONCE 1 Days Qty: 4 0RF Rx Instructions: take at noon the day before colonoscopy polyethylene glycol 3350 [Miralax] 17 gram/dose powder 238 g PO ONCE 1 Days Qty: 238 0RF Rx Instructions: the day before your procedure mix entire bottle with 64 ounces of a clear liquid. At 5pm drink 1 cup every 15 minutes until half is gone. At 10pm finish drinking remaining prep. duloxetine 30 mg Capsule,Delayed Release(Dr/Ec) 90 mg PO BEDTIME Qty: 90 0RF gabapentin 600 mg Tablet 600 mg PO TID Qty: 90 0RF quetiapine 200 mg Tablet 200 mg PO BEDTIME Qty: 30 0RF quetiapine 50 mg Tablet 50 mg PO BID@0800,1400 Qty: 60 0RF (DME) blood sugar diagnostic Strip See Rx Instructions Not Applicable BID Qty: 10 0RF Rx Instructions: As directed (DME) insulin syringe-needle U-100 [Insulin Syringe] 1 mL 29 gauge x 1/2 syringe See Rx Instructions .Route Qty: 100 0RF Rx Instructions: As directed (DME) lancets 33 gauge misc See Rx Instructions Not Applicable BID Qty: 100 0RF Rx Instructions: As directed prazosin 5 mg Capsule 10 mg PO BEDTIME Qty: 60 2RF Protocol: Hold for SBP< HOLD for SBP < : 90 prazosin 5 mg Capsule 5 mg PO DAILY Qty: 30 2RF Protocol: Hold for SBP< HOLD for SBP < : 90 insulin glargine [Lantus U-100 Insulin] 100 unit/mL Solution 20 unit subcut BEDTIME Qty: 10 2RF cyclobenzaprine 10 mg tablet 10 mg PO BEDTIME PRN (Reason: muscle spasm) Qty: 7 0RF insulin glargine [Lantus Solostar U-100 Insulin] 100 unit/mL (3 mL) insulin pen 24 unit subcut QAM Qty: 15 0RF naproxen 500 mg tablet 500 mg PO Q12H PRN (Reason: pain (scale score 1-3)) Qty: 20 0RF ketorolac 10 mg tablet 10 mg PO Q8H PRN (Reason: pain) 3 Days Qty: 9 0RF Rx Instructions: Patient was medicated with 15mg IV toradol for pain management. Trulicity 0.75 mg/0.5 mL pen injector subcut clonazepam 0.5 mg tablet 0.5 mg PO DAILY PRN (DME) CPAP Machine/Device Device See Rx Instructions .Route Rx Instructions: As directed meloxicam 15 mg tablet 15 mg PO DAILY 30 Days Qty: 30 0RF buspirone 10 mg tablet 10 mg PO TID Trulicity 1.5 mg/0.5 mL pen injector subcut albuterol sulfate 2.5 mg /3 mL (0.083 %) solution for nebulization 2.5 mg inhalation BID 30 Days Qty: 180 11RF albuterol sulfate [Ventolin HFA] 90 mcg/actuation HFA aerosol inhaler 2 puff inhalation Q4H PRN (Reason: bronchospasm) Qty: 6.7 11RF Trelegy Ellipta 100-62.5-25 mcg blister with device 1 inh inhalation DAILY 30 Days Qty: 60 11RF Referrals: [facility] [place] [facility] [Provider Group] Interventions: ED Discharge Assessment Last Done: 10/31/25 10:14 Discharge Date/Time: 10/31/25 10:15 Print Language: Greenlandic
[2025-10-31] MEDS: Morphine Sulfate Immed Release 15 MG TABLET PO (08:55)
[2025-10-31] MEDS: Lidocaine 4 % Patch ADH..PATCH 1 PATCH TRANSDERMA (08:55)
[2025-10-31 10:14] VITALS: BP 134/62; PULSE 78; RESP 18; TEMP 36.6; O2SAT 98
== END 2025-10-31 10:15 | disposition home or self-care (01) ==
PROVIDERS: Emergency Provider Emergency Medicine; PCP Nurse Practitioner Primary Care
DX: M25.551 Pain in right hip (principal); G89.29 Other chronic pain; E11.9 Type 2 diabetes mellitus without complications
CPT/HCPCS: 96372; 99284; J1885